=== PATIENT | male | born 1950 | race Caucasian/White ===

== ENCOUNTER → 2022-05-08 | Outpatient (CLI) | payer MEDICARE, SELFPAY ==
--- NOTE | 2022-05-08 14:04 | ECHOD_ITS ---
Reason For Study: CONGENITAL HEART DISEASE Procedure This was a 2D Doppler, Color Flow transthoracic echocardiogram. Exam performed in department. Left Ventricle Normal LV size. Left ventricular systolic function is normal. The estimated ejection fraction is 65 %. Normal diastology for age. No regional wall motion abnormalities noted. Right Ventricle Normal RV size. Normal systolic function. Atria Normal left atrium. Normal right atrium. Mitral Valve Normal mitral valve. Tricuspid Valve Normal tricuspid valve. Mild (1+) tricuspid valve insufficiency. Pulmonary artery systolic pressure is 37 mmHg. Aortic Valve Normal aortic valve. Trisinus/trileaflet aortic valve. Pulmonic Valve Normal pulmonic valve. Great Vessels Normal aortic root. The pulmonary artery is normal size. Normal inferior vena cava. Pericardium/Pleural No pericardial effusion. MMode/2D Measurements & Calculations LVIDd: 5.0 cm IVSd: 0.90 cm Ao root diam: 3.5 cm LVIDs: 3.1 cm LVPWd: 0.98 cm RVDd: 3.4 cm FS: 37.0 % LAV(MOD-bp): 46.9 ml LVAd ap4: 32.2 cm2 SV(MOD-sp4): 72.6 ml LAV(MOD-bp) Indexed: 21.9 ml/m2 LVLd ap4: 8.2 cm LAV(MOD-sp2): 46.0 ml EDV(MOD-sp4): 102.6 ml LAV(MOD-sp4): 44.6 ml EDV(sp4-el): 107.1 ml LVAs ap4: 15.0 cm2 LVLs ap4: 6.3 cm ESV(MOD-sp4): 30.0 ml ESV(sp4-el): 30.3 ml EF(MOD-sp4): 70.8 % EF(sp4-el): 71.7 % SV(sp4-el): 76.8 ml LA A4 area: 18.1 cm2 LA dimension(2D): 4.1 cm RA A4 area: 17.3 cm2 Time Measurements MV dec time: 0.20 sec Doppler Measurements & Calculations MV E max robel: 74.4 cm/sec Lat Peak E' Robel: 13.2 cm/sec Med Peak E' Robel: 8.9 cm/sec MV A max robel: 57.0 cm/sec E/E' lat: 5.6 E/E' med: 8.4 MV E/A: 1.3 Ao V2 max: 145.7 cm/sec LV V1 max: 133.4 cm/sec PA V2 max: 113.6 cm/sec Ao max P.5 mmHg LV V1 max P.1 mmHg TR max robel: 293.0 cm/sec TR max P.3 mmHg ECHO/Echo Complete Interpretation Summary Normal LV size. Left ventricular systolic function is normal. The estimated ejection fraction is 65 %. Pulmonary artery systolic pressure is 37 mmHg. The global longitudinal strain is normal. The global longitudinal strain = -19. 9 % (normal). Ordering Physician: Caroline Calloway/Addy Pardo Performed By: Juanis Edwards RDCS
== END | disposition home or self-care (01) ==
PROVIDERS: Referring Provider Physician Assistant Medical; Visit Provider Physician Assistant Medical
DX: Q21.10 Atrial septal defect, unspecified (principal); I36.1 Nonrheumatic tricuspid (valve) insufficiency
CPT/HCPCS: 93306

== ENCOUNTER → 2022-10-13 | Outpatient (CLI) | payer MEDICARE, SELFPAY ==
--- NOTE | 2022-10-13 13:02 | CT_ITS ---
STUDY: CT CHEST WITHOUT CONTRAST REASON FOR EXAM: Male, 72 years old. CALCIUM SCORE, Hyperlipidemia, hypertension. History of male breast cancer, mastectomy. OVERREAD ONLY RADIATION DOSAGE (If Supplied By Facility): CTDIvol = ( 12.19 ) mGy, DLP = ( 243.79 ) mGycm TECHNIQUE: Transaxial imaging was performed without the administration of intravenous contrast material. Individualized dose optimization techniques were used for this CT. COMPARISON: No relevant priors. FINDINGS: CHEST There is a 5 mm noncalcified nodule in the lateral aspect of the right upper lobe as seen on axial image #11. Dedicated CT scan of the thorax is recommended for further evaluation. There is no demonstrated pleural abnormality. There are calcifications of the coronary arteries. There are small lymph nodes within the mediastinum, which are normal in size and morphology most compatible with reactive lymph hyperplasia. Normal hilar regions. Normal unenhanced pulmonary arteries. There is atherosclerotic calcification of the aortic arch. Normal osseous structures. Small hiatal hernia. CT/Limited Chest CT Cardiac Only IMPRESSION: Coronary artery calcification. Incidental note is made of a 5 mm noncalcified nodule in the peripheral lateral aspect of the right upper lobe. Correlation with a dedicated CT scan of thorax is recommended for further evaluation. Electronically Signed: Miah Nieves MD at 13:54 EDT ,
--- NOTE | 2022-10-17 12:22 | CA.SCORE ---
Calcium Scoring Date of Study:: 10/13/22 Coronary Calcium Scoring: High-resolution Computed Tomographic imaging of the chest was performed on [10/13/2022], with particular attention paid to the coronary arteries. Images from the examination were analyzed for the presence and extent of coronary artery calcification , using coronary calcium quantification software. The patient tolerated the procedure well and there were no complications. The results of the coronary calcification analysis are provided below. Findings Coronary Artery Left Main (LM): 0 Left Anterior Descending (LAD): 1,118 Left Circumflex (LCX): 443 Right Coronary Artery (RCA): 980 Total Agatston Score: 2,541 Percentile Ranking: Greater than 90th percentile Calcium Scoring Interpretation: Different methods to categorize the overall amount of coronary plaque. Overall amount CAC SIS Visual of coronary plaque P1 Mild -100 <2 1-2 vessels with mild amount of plaque P2 Moderate 101-300 3-4 1-2 vessels with moderate amount, 3 vessels with mild amount of plaque P3 Severe 301-999 5-7 3 vessels with moderate amount, 1 vessel with severe amount of plaque P4 Extensive >1000 >8 2-3 vessels with severe amount of plaque Calcium Score: Extensive: 2-3 vessels w/severe amount of plaque Conclusion: Extensive atherosclerotic plaquing noted with significant calcification noted in the left anterior descending artery and right coronary artery territories. Significantly elevated compared to people of the same gender and age.
== END | disposition home or self-care (01) ==
PROVIDERS: Referring Provider Physician Assistant Medical; Visit Provider Physician Assistant Medical
DX: E78.5 Hyperlipidemia, unspecified (principal); I10 Essential (primary) hypertension; K44.9 Diaphragmatic hernia without obstruction or gangrene; I25.10 Atherosclerotic heart disease of native coronary artery without angina pectoris
CPT/HCPCS: 75571; 76380

== ENCOUNTER → 2022-10-23 | Outpatient (CLI) | payer MEDICARE, SELFPAY ==
--- NOTE | 2022-10-23 18:42 | CT_ITS ---
INDICATION: abnormal chest CT (cardiac)- lung nodule. History of breast cancer with mastectomy. EXAMINATION: CT CHEST WITHOUT CONTRAST - CT Chest W/O Contrast Injection TECHNIQUE: Helically acquired images were obtained of the chest with soft tissue and lung algorithm. Coronal and sagittal reformats obtained. A radiation dose optimization technique was used for this scan. IV Contrast dosage and agent: None. COMPARISON: October 13, [address] FINDINGS: LUNGS, PLEURA AND LARGE AIRWAYS: 5 mm lateral right upper lobe nodule axial image 42 correlating with nodule on comparison CT. No additional pulmonary nodules are seen. No pleural effusion or thickening. No pneumothorax. THYROID: No thyroid lesions. HEART AND PERICARDIUM: Heart size is normal. No pericardial effusion. Severe multivessel coronary atherosclerosis. VESSELS: Minimal aortic atherosclerosis without ectasia.. MEDIASTINUM AND JOSÉ: No mediastinal or hilar adenopathy by size criteria. Esophagus is unremarkable. Minimal hiatal hernia. UPPER ABDOMEN: No acute pathology. CHEST WALL/BONES: No suspicious lytic or blastic abnormality. Prior bilateral mastectomy. CT/Chest without Contrast IMPRESSION: Solitary 5 mm nodule in the lateral right upper lobe. In the setting of prior breast malignancy recommend 3 month follow-up CT to assess stability. Minimal hiatal hernia. Electronically Signed: Santo Smith MD at 9:47 EDT ,
== END | disposition home or self-care (01) ==
PROVIDERS: Referring Provider Physician Assistant Medical; Visit Provider Physician Assistant Medical
DX: R93.89 Abnormal findings on diagnostic imaging of other specified body structures (principal); Z85.3 Personal history of malignant neoplasm of breast
CPT/HCPCS: 71250

== ENCOUNTER → 2022-11-03 | Outpatient (CLI) | payer MEDICARE, SELFPAY ==
--- NOTE | 2022-11-01 20:51 | PCM.HP.BLA ---
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 He is a gentleman with a history of chronic Casarez's esophagitis, small patent foramen ovale, hypertension and hyperlipidemia who returns for routine follow-up visit. He does have a hx of right breast cancer with chemo and radiation in [phone]. He is now seeing a sizing end bander for protein in his urine. He complete Coronary Calcium testing on 10/17/2022 that was significantly elevated. Based on such, he will proceed with [facility]. He has stopped his enalapril d/t low BP readings. From a cardiac standpoint, patient is doing well. He does not have any chest discomfort/heaviness/tightness. His exercise tolerance is stable for his age. He does not have any worsening symptoms of shortness of breath. He denies any PND. He does not have any orthopnea. He does not have any symptoms of congestive heart failure. He does sometimes feels palpitations, these are not often. He does not have any lightheadedness or dizziness. He does not have any near-syncope or syncope. He does have chronic lower extremity edema- he does wear his compression stockings. He is in lasix for this. He does not have any symptoms of claudication. Intake Vital Signs: See EMR Intake Visit Reasons: [facility] Community Living Coach Required: No Accompanied by: Self Allergies No Known Allergies Allergy (Verified 04/14/22 09:09) Medications See EMR [facility] Medical History (Updated 04/14/22 @ 09:31 by Caroline MOSELEY, PA) Casarez esophagus Bile reflux gastritis Breast cancer in male Essential (primary) hypertension Hyperlipidemia Obesity Patent foramen ovale Preop cardiovascular exam Surgical History H/O right mastectomy History of total bilateral knee replacement (TKR) Family History Other Breast cancer CAD (coronary artery disease) Social History Smoking Status: Never smoker ROS Const Const: Negative for fatigue, weakness, headache(s), frequent falls, excessive sweating, weight gain or weight loss Eyes Eyes: Negative for blind spots, loss of peripheral vision, transient loss of vision, blurry vision, change in vision or double vision ENT ENT: Negative for headache(s), dizziness, tinnitus, Nosebleed/epistaxis or balance problems Cardio Chest Pain: No Palpitations: No Edema: None Muscle aches with walking: None Resp Respiratory: Negative for SOB with activity, SOB at rest, SOB orthopnea\SOB lying down or Cough GI GI: Negative nausea, vomiting, heartburn, bloating, vomiting blood/hematemesis, bright, red blood in stools or black,tarry stools : Negative for hematuria Musc Musc: Negative for muscle aches/ myalgia, muscle weakness, joint pain or balance problems Skin Skin: Negative rash or wounds Neuro Neuro: Negative for dizziness, lightheadedness, near syncope, syncope, orthostatic symptoms, frequent falls, headache(s), weakness, confusion, memory loss, restless legs, blurry vision or double vision Shun Hematologic/Lymphatic: Negative for easy bleeding or easy bruising Endo Endo: Negative for fatigue, cold intolerance, heat intolerance or excessive sweating Psych Psych: Negative for anxiety or depression Allergy Allergy/Immunology: Negative for rash Cardiology Exam Const Appearance: cooperative, healthy appearing, comfortable, no acute distress and well developed Orientation: alert, awake and oriented x3 Head Head: normal to inspection Ears: hearing grossly normal bilaterally Nose: external nose normal Face and Sinus: face symmetric Mouth: oral mucosae normal, lip normal and moist mucous membranes Eyes General: appearance normal, both eyes and all related structures Eyelids: eyelids normal Conjunctivae: conjunctivae normal Pupils: PERRL EOM: EOM intact bilaterally Neck Neck: normal visual inspection and trachea midline; Negative no JVD Carotids: Negative bruit Chest Chest inspection: normal inspection of the chest Auscultation: Bilateral: Clear to Auscultation Cardio Palpation: normal PMI Rate: regular rate Rhythm: regular rhythm Heart sounds: S1 normal and S2 normal; Negative rub, gallop or murmur GI GI: soft, no hepatosplenomegaly and bowel sounds present Neuro General: patient alert, patient awake, patient oriented x3 and CN's II-XI intact bilaterally Extremities Pulses: Normal: Right Posterior Tibial Pulse, Left Posterior Tibial Pulse, Right Radial Pulse and Left Radial Pulse Lower Extremity Edema: None: Bilateral Psych Psychological: normal affect Supplemental Info Stress test 2017: 1. Exercise myocardial perfusion stress test with no evidence of ischemia at a high workload. 2. Excellent functional work capacity. 3. No clinical angina noted. Echocardiogram 05/08/2022: Interpretation Summary Normal LV size. Left ventricular systolic function is normal. The estimated ejection fraction is 65 %. Pulmonary artery systolic pressure is 37 mmHg. The global longitudinal strain is normal. The global longitudinal strain = -19.9 % (normal). Coronary Angiography CT from 10/17/2022: Findings Coronary Artery Left Main (LM): 0 Left Anterior Descending (LAD): 1,118 Left Circumflex (LCX): 443 Right Coronary Artery (RCA): 980 Total Agatston Score: 2,541 Percentile Ranking: Greater than 90th percentile Calcium Score: Extensive: 2-3 vessels w/severe amount of plaque Conclusion: Extensive atherosclerotic plaquing noted with significant calcification noted in the left anterior descending artery and right coronary artery territories. Significantly elevated compared to people of the same gender and age. Assessment and Plan Assessment and Plan (1) Essential (primary) hypertension: Status: Chronic Plan: Patient had stopped his enalapril due to hypotension. He will continue with his current dose of diuretics. His PCP is managing his kidney function. He has been diuretics for chronic lower extremity edema following his vasectomy. (2) Patent foramen ovale: Status: Chronic Plan: Stable, will repeat echocardiogram to evaluate stability. (3) Hyperlipidemia: Status: Chronic Plan: managed by PCP, will continue with current dose of statin (4) Abnormal Test Status: Chronic Plan: On account of elevated calcium score, he will proceed with C. Depending on results, further recommendation will be made.
[2022-11-03 11:52] LABS: Absolute Lymphocyte Count 2.18 X10^3/uL (0.83-4.51); Absolute Neutrophil Count 3.9 X10^3/uL (2.0-7.7); Basophil# 0.03 X10^3/uL; Basophil% 0.4 % (0-1); Eosinophil# 0.12 X10^3/uL; Eosinophils% 1.8 % (0-5); Hematocrit 41.6 % (40-54); Hemoglobin 14.1 g/dL (13.0-16.5); Lymphocyte # 2.18 X10^3/ul (0.83-4.51); Lymphocyte % 32.2 % (19-41); Mean Corp Hgb Conc 33.9 g/dL (32-36); Mean Corpuscular Hgb 29.7 pg (27.0-32.0); Mean Corpuscular Volume 87.8 fL (80-94); Mean Platelet Vol. 9.2 fl (6.2-12.0); Monocyte# 0.57 X10^3/uL; Monocyte% 8.4 % (0-10); NRBC Flagged by Analyzer 0 % (0-5); Neutrophil # 3.86 X10^3/uL (2.7-7.7); Neutrophil % 57.1 % (47-70); Platelet Count 284 K/mm3 (150-450); RBC Distribution Width CV 13.6 % (11.6-14.6); RBC Distribution Width SD 43.9 fl (35.1-43.9); Red Blood Count 4.74 M/mm3 (4.6-6.2); White Blood Count 6.8 K/mm3 (4.4-11.0)
[2022-11-03 12:03] LABS: Partial Thromboplast Time 27.5 Seconds (24.1-36.2)
[2022-11-03 12:23] LABS: Anion Gap 4 (5-15); BUN 10 mg/dL (7-18); BUN/Creat Ratio 9.9 RATIO (10-20); Chloride 106 mmol/L (98-107); Creatinine, Serum 1.01 mg/dL (0.70-1.30); EST Glomerular Filtration Rate 77 mL/min (>60); Est Glom Filt Rate - Afr Amer 94 mL/min (>60); Glucose 98 mg/dL (74-106); Potassium 3.9 mmol/L (3.5-5.1); Sodium Level 138 mmol/L (136-145)
[2022-11-06 08:06] VITALS: BMI 35.4
== END | disposition home or self-care (01) ==
LOC: PAT 12-01 08:11
PROVIDERS: Physician Assistant Medical; Referring Provider Internal Medicine Cardiovascular Disease; Visit Provider Internal Medicine Cardiovascular Disease
DX: Z01.818 Encounter for other preprocedural examination (principal); R93.1 Abnormal findings on diagnostic imaging of heart and coronary circulation; R93.89 Abnormal findings on diagnostic imaging of other specified body structures; I10 Essential (primary) hypertension; E78.5 Hyperlipidemia, unspecified
CPT/HCPCS: 36415; 80048; 85025; 85610; 85730

== ENCOUNTER → 2023-02-15 | Outpatient (CLI) | payer MEDICARE, SELFPAY ==
--- OUTSIDE RECORDS SUMMARY | 2023-02-15 06:21 | XMS RPT_ITS | CCD ---
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 Name Role Phone Winifred Kennedy Unavailable Winifred Kennedy Unavailable Winifred Kennedy Unavailable Kasandra HERRERA, Oriana Alonzo Unavailable Unavailable Danial Berkowitz Primary Care Provider Danial Berkowitz Primary Care Provider Danial Berkowitz Primary Care Provider Danial Berkowitz Primary Care Provider Danial Berkowitz MD Primary Care Provider Danial Berkowitz MD Primary Care Provider Danial Berkowitz MD Primary Care Provider Danial Berkowitz MD Primary Care Provide r Danial Berkowitz MD Primary Care Provide r Danial Berkowitz MD Primary Care Provide r Danial Berkowitz Unavailable Danial Berkowitz MD Primary Care Provider [phone] Danial Berkowitz MD Primary Care Provider Danial Berkowitz MD Primary Care Provide r Danial Berkowitz Primary Care Unavailable PROVIDER, UNKNOWN Referring Unavailable Danial Berkowitz Attending Unavailable PROVIDER, UNKNOWN Referring Unavailable Danial Berkowitz Primary Care Unavailable Roselyn, Danial Attending Unavailable PROVIDER, UNKNOWN Referring Unavailable TestonBessis Attending Unavailable Roselyn, Danial Primary Care Unavailable PROVIDER, UNKNOWN Referring Unavailable Roselyn, Danial Attending Unavailable Roselyn, Danial Primary Care Unavailable PROVIDER, UNKNOWN Referring Unavailable Roselyn, Danial Attending Unavailable Roselyn, Danial Primary Care Unavailable PROVIDER, UNKNOWN Referring Unavailable Roselyn, Danial Attending Unavailable Roselyn, Danial Primary Care Unavailable Roselyn KING, Danial Primary Care Provider Roselyn, Danial Attending Unavailable Roselyn, Danial Referring Unavailable Roselyn, Danial Primary Care Unavailable Roselyn, Danial Attending Unavailable Roselyn, Danial Referring Unavailable Roselyn, Danial Primary Care Unavailable Roselyn, Danial Attending Unavailable Roselyn, Danial Referring Unavailable Roselyn, Danial Primary Care Unavailable Roselyn , Danial Primary Care Provider [phone] Danial Berkowitz MD Primary Care Provide r Danial Berkowitz MD Primary Care Provider TestonBessis Admitting Unavailable TestonBessis Attending Unavailable Roselyn, Dr. Danial Casey Referring Patricia vailable Roselyn, Dr. Danial Casey Primary Care Patricia vailable DENIS OSUNA Attending Unavailable ROSELYN, DANIAL Primary Care Unavailable MAURO WORKMAN Attending Unavailable ROSELYN, DANIAL Primary Care Unavailable JAMARCUS IRVING Attending Unavailable ROSELYN, DANIAL Primary Care Unavailable ROSELYN, DANIAL Attending Unavailable ROSELYN, DANIAL Primary Care Unavailable Medications Current Medications Medication Drug Class(es) Dates Sig (Normalized) Sig (Original) acetaminophen 500 mg oral tablet (2 sources) Start: 12-27-2020 End: 05-13-2021 take 2 tablets by mouth every eight hours as needed acetaminophen (TYLENOL EXTRA STRENGTH) 500 mg tablet Take 2 tablets by mouth every 8 hours as needed for pain. 60 tablet 0 12/27/2020 05/13/2021 Discontinued Completed/Discontinued Medications Medication Drug Class(es) Dates Sig (Normalized) Sig (Original) amoxicillin 500 mg oral capsule (10 sources) Penicillin-class Antibacterial Start: 06-09-2020 End: 11-30-2022 take 4 capsules by mouth every hour amoxicillin (AMOXIL) 500 mg capsule Take 4 capsules by mouth 1 hour prior to dental cleaning 4 capsule 3 11/30/2022 Active Problems Active Problems Problem Classification Problem Date Documented Date Episodic/Chronic Abdominal hernia (1 source) Hiatal hernia; Translations: [Diaphragmatic hernia without obstruction or gangrene] Episodic Abdominal pain (1 source) Upper abdominal pain; Translations: [Upper abdominal pain, unspecified] Episodic Anxiety disorders (19 sources) Anxiety; Translations: [Other specified anxiety disorders] Onset: 10-10-2022 10-10-2022 Chronic Attention-deficit conduct and disruptive behavior disorders (20 sources) Attention deficit hyperactivity disorder; Translations: [Attention-deficit hyperactivity disorder, unspecified type] Onset: 08-06-2014 08-06-2014 Chronic Cancer of breast (13 sources) Malignant neoplasm of male breast; Translations: [Malignant neoplasm of unspecified site of unspecified male breast] Onset: 11-16-2014 01-21-2017 Chronic Cardiac and circulatory congenital anomalies (20 sources) Patent foramen ovale; Translations: [Atrial septal defect] Onset: 06-14-2016 06-14-2016 Chronic Deficiency and other anemia (6 sources) Anemia; Translations: [Anemia, unspecified] 12-20-2020 Episodic Diabetes mellitus without complication (20 sources) Prediabetes; Translations: [Prediabetes] Onset: 12-20-2020 12-20-2020 Episodic Disorders of lipid metabolism (20 sources) Hyperlipidemia; Translations: [Hyperlipidemia, unspecified] Onset: 05-12-2016 05-12-2016 Chronic Diverticulosis and diverticulitis (1 source) Diverticular disease; Translations: [Diverticulosis of intestine, part unspecified, without perforation or abscess without bleeding] Chronic Esophageal disorders (20 sources) Casarez's esophagus; Translations: [Casarez's esophagus without dysplasia] Onset: 01-05-2016 01-05-2016 Chronic Essential hypertension (20 sources) Hypertensive disorder; Translations: [Essential hypertension] Onset: 05-12-2016 05-12-2016 Chronic Gastritis and duodenitis (20 sources) Chronic superficial gastritis; Translations: [Chronic superficial gastritis without bleeding] Onset: 01-05-2016 05-03-2020 Chronic Genitourinary symptoms and ill-defined conditions (4 sources) Isolated proteinuria; Translations: [Isolated proteinuria] Onset: 11-07-2021 Episodic Heart valve disorders (6 sources) Heart murmur; Translations: [Cardiac murmur, unspecified] 12-20-2020 Episodic Hyperplasia of prostate (20 sources) Benign prostatic hyperplasia; Translations: [Benign prostatic hyperplasia without lower urinary tract symptoms] Onset: 12-21-2021 12-20-2020 Chronic Hypertension with complications and secondary hypertension (2 sources) Hypertensive heart disease without heart failure; Translations: [Hypertensive heart disease without heart failure] Onset: 11-07-2021 Chronic Nausea and vomiting (3 sources) Nausea; Translations: [Nausea] Episodic Osteoarthritis (6 sources) Osteoarthritis of left knee joint; Translations: [Unilateral primary osteoarthritis, left knee] Onset: 12-20-2020 12-20-2020 Chronic Other connective tissue disease (20 sources) History of total knee arthroplasty; Translations: [Presence of left artificial knee joint] Onset: 03-15-2020 Chronic Other connective tissue disease (2 sources) Muscle spasm of cervical muscle of neck; Translations: [Other muscle spasm] Episodic Other lower respiratory disease (5 sources) Dyspnea; Translations: [Dyspnea, unspecified] Onset: 05-12-2016 05-12-2016 Episodic Other lower respiratory disease (4 sources) Dyspnea, unspecified; Translations: [Dyspnea, unspecified] Onset: 09-07-2021 Episodic Other non-traumatic joint disorders (1 source) Pain in left knee; Translations: [Left knee pain, unspecified chronicity] Other nutritional; endocrine; and metabolic disorders (4 sources) Obesity; Translations: [Other obesity due to excess calories] Onset: 03-03-2020 03-03-2020 Chronic Other nutritional; endocrine; and metabolic disorders (2 sources) Obesity caused by energy imbalance; Translations: [Other obesity due to excess calories] Onset: 03-03-2020 03-03-2020 Chronic Residual codes; unclassified (2 sources) Hypersomnia, unspecified; Translations: [Hypersomnia, unspecified] Onset: 09-23-2021 Chronic Residual codes; unclassified (8 sources) Bilateral lower limb edema; Translations: [Localized edema] 12-20-2020 Episodic Past or Other Problems Problem Classification Problem Date Documented Da te Episodic/Chronic Cancer of breast (20 sources) History of malignant neoplasm of breast; Translations: [Personal history of malignant neoplasm of breast] Onset: 11-16-2014 05-03-2020 Episodic Deficiency and other anemia (7 sources) Normocytic normochromic anemia; Translations: [Anemia, unspecified] Onset: 10-15-2020 10-15-2020 Episodic Deficiency and other anemia (19 sources) Macrocytic anemia; Translations: [Nutritional anemia, unspecified] Onset: 10-15-2020 05-26-2022 Episodic Gastritis and duodenitis (20 sources) Chronic superficial gastritis; Translations: [Bile-induced gastritis] Onset: 01-05-2016 01-05-2016 Episodic Nonspecific chest pain (4 sources) Chest pain; Translations: [Chest pain, unspecified] Onset: 05-12-2016 05-12-2016 Episodic Other aftercare (4 sources) 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; Translations: [Other [facility] (current) drug therapy] Onset: 05-12-2016 05-12-2016 Episodic Other aftercare (1 source) Encounter for follow-up examination after completed treatment for malignant neoplasm; Translations: [Encntr for follow-up exam after trtmt for malignant neoplasm] Onset: 04-10-2022 Episodic Other circulatory disease (19 sources) Capillary leak syndrome; Translations: [Other diseases of capillaries] Onset: 12-21-2021 05-26-2022 Episodic Other connective tissue disease (2 sources) Other muscle spasm; Translations: [Other muscle spasm] Onset: 05-26-2022 Episodic Residual codes; unclassified (3 sources) Localized edema; Translations: [Localized edema] Onset: 11-07-2021 Episodic Residual codes; unclassified (2 sources) Localized edema; Translations: [Localized edema] Onset: 11-07-2021 Episodic Results Test Name Value Interpretation Reference Range Facil ity Vital Signs Date Time Vital Sign Value Performing Clinician Faci lity 02-01-2023 13:12050 Body height 172.7 cm Jamarcus Irving PA-C Work Phone: [facility] 02-01-2023 13:12-0500 Body mass index (BMI) [Ratio] 35.88 kg/m2 Jamarcus Irving PA-C Work Phone: [facility] 02-01-2023 13:12050 Body temperature 97.11 [degF] Jamarcus Irving PA-C Work Phone: [facility] 02-01-2023 13:12-0500 Body weight 107.05 kg Jamarcus Bonilla PA-C Work Phone: [facility] [employer] 02-01-2023 13:12-0500 Diastolic blood pressure 70 mm[Hg] Jaredskasandra Bonilla PA-C Work Phone: [facility] [employer] 02-01-2023 13:12-0500 Heart rate 77 /min Jamarcus Bonilla PA-C Work Phone: [facility] [employer] 02-01-2023 13:12-0500 Systolic blood pressure 129 mm[Hg] Jaredskasandra Bonilla PA-C Work Phone: [facility] [employer] 11-13-2022 09:03-0400 Body height 172.7 cm Norm Villafuerte MD Work Phone: [facility] [employer] 11-13-2022 09:03-0400 Body mass index (BMI) [Ratio] 34.1 kg/m2 Norm Villafuerte MD Work Phone: [facility] [employer] 11-13-2022 09:03-0400 Body temperature 97.5 [degF] Norm Villafuerte MD Work Phone: [facility] [employer] 11-13-2022 09:03-0400 Body weight 101.74 kg Norm Villafuerte MD Work Phone: [facility] [employer] 11-13-2022 09:03-0400 Diastolic blood pressure 67 mm[Hg] Norm Villafuerte MD Work Phone: [facility] [employer] 11-13-2022 09:03-0400 Heart rate 72 /min Norm Villafuerte MD Work Phone: [facility] [employer] 11-13-2022 09:03-0400 Systolic blood pressure 125 mm[Hg] Norm Villafuerte MD Work Phone: [facility] [employer] 10-10-2022 14:49-0400 Body height 172.7 cm Norm Villafuerte MD Work Phone: [facility] [employer] 10-10-2022 14:49-0400 Body mass index (BMI) [Ratio] 34.23 kg/m2 Norm Villafuerte MD Work Phone: [facility] [employer] 10-10-2022 14:49-0400 Body temperature 98.29 [degF] Norm Villafuerte MD Work Phone: [facility] [employer] 10-10-2022 14:49-0400 Body weight 102.11 kg Norm Villafuerte MD Work Phone: [facility] [employer] 10-10-2022 14:49-0400 Diastolic blood pressure 72 mm[Hg] Norm Villafuerte MD Work Phone: [facility] [employer] 10-10-2022 14:49-0400 Heart rate 74 /min Norm Villafuerte MD Work Phone: [facility] [employer] 10-10-2022 14:49-0400 Systolic blood pressure 126 mm[Hg] Norm Villafuerte MD Work Phone: [facility] [employer] 05-26-2022 10:37-0400 Body height 172.7 cm Danial Berkowitz MD Work Phone: [facility] [employer] 05-26-2022 10:37-0400 Body mass index (BMI) [Ratio] 35.14 kg/m2 Danial Berkowitz MD Work Phone: [facility] [employer] 05-26-2022 10:37-0400 Body temperature 98.01 [degF] Danial Berkowitz MD Work Phone: [facility] [employer] 05-26-2022 10:37-0400 Body weight 104.83 kg Danial Berkowitz MD Work Phone: [facility] [employer] 05-26-2022 10:37-0400 Diastolic blood pressure 75 mm[Hg] Danial Berkowitz MD Work Phone: [facility] [employer] 05-26-2022 10:37-0400 Heart rate 68 /min Danial Berkowitz MD Work Phone: [facility] [employer] 05-26-2022 10:37-0400 Systolic blood pressure 129 mm[Hg] Danial Berkowitz MD Work Phone: [facility] [employer] 05-13-2021 08:32-0400 Body height 172.7 cm Yvon Warner MD Work Phone: [facility] 05-13-2021 08:32-0400 Body weight 105.23 kg Yvon Warner MD Work Phone: [facility] 05-13-2021 08:32-0400 Diastolic blood pressure 68 mm[Hg] Yvon Warner MD Work Phone: [facility] 05-13-2021 08:32-0400 Heart rate 79 /min Yvon Warner MD Work Phone: [facility] 05-13-2021 08:32-0400 Systolic blood pressure 122 mm[Hg] Yvon Warner MD Work Phone: [facility] 07-18-2016 11:40-0400 BMI (Body Mass Index) 35.44 kg/m2 Winifred Kennedy [facility] Work Phone: 07-18-2016 11:40-0400 BP Diastolic 72 mm[Hg] Winifred Kennedy [facility] Work Phone: 07-18-2016 11:40-0400 BP Systolic 116 mm[Hg] Winifred Kennedy [facility] Work Phone: 07-18-2016 11:40-0400 Height 172.72 cm Winifred Kennedy [facility] Work Phone: 07-18-2016 11:40-0400 Pulse (Heart Rate) 72 /min Winifredamirah Kennedy [facility] Work Phone: 07-18-2016 11:40-0400 Weight 105.73 kg Winifred Kennedy [facility] Work Phone: 05-17-2016 13:49-0400 BMI (Body Mass Index) 34.97 kg/m2 Oriana Slaughter RN [facility] Work Phone: 05-17-2016 13:49-0400 BP Diastolic 78 mm[Hg] Oriana Kasandra RN [facility] Work Phone: 05-17-2016 13:49-0400 BP Systolic 130 mm[Hg] Orianalucrecia Slaughter RN [facility] Work Phone: 05-17-2016 13:49-0400 Height 172.72 cm Orianalucrecia Slaughter RN [facility] Work Phone: 05-17-2016 13:49-0400 Pulse (Heart Rate) 88 /min Oriana Slaughter RN [facility] Work Phone: 05-17-2016 13:49-0400 Respiratory Rate 20 /min Oriana Kasandra RN [facility] Work Phone: 05-17-2016 13:49-0400 Weight 104.33 kg Oriana Slaughter RN [facility] Work Phone: Encounters Encounter Date Encounter Type Care Provider Facility Start: 02-01-2023 End: 02-01-2023 ambulatory [facility] Start: 02-01-2023 End: 02-01-2023 Encounter for general adult medical examination without abnormal findings [facility] Start: 02-01-2023 End: 02-01-2023 Patient encounter procedure Jamarcus Irving PA-C Work Phone: [facility] Procedures Date Procedure Procedure Detail Performing Clinician Start: 02-01-2023 Adult depression scr eening assessment Jamarcus MOSELEY-C Work Phone: Start: 10-17-2022 Adult depression scr eening assessment Norm Villafuerte MD Work Phone: Start: 12-28-2021 Lipid 1996 panel - S jarrett or Plasma Danial Berkowitz MD Work Phone: Start: 12-21-2021 Adult depression scr eening assessment Danial Berkowitz MD Work Phone: Start: 12-08-2021 Screening mammograph y bi 2-view breast inc cad Dara Loredo MD Work Phone: Start: 09-28-2021 Us retroperitoneal r eal time w/image limited Danial Berkowitz MD Work Phone: Start: 09-12-2021 Echo tthrc r-t 2d w/ wom-mode compl spec&colr d Danial Berkowitz MD Work Phone: Start: 08-23-2021 Ecg routine ecg w/le ast 12 lds w/i&r Danial Berkowitz MD Work Phone: Start: 06-23-2021 Medical genetics cou nseling each 30 minutes Danial Berkowitz Work Phone: Start: 05-19-2021 Medical genetics cou nseling each 30 minutes Danial Berkowitz Work Phone: Start: 12-20-2020 Antibody screen Plan of Treatment Date Care Activity Detail Author Start: 12-28-2026 Lipid panel Lipid Panel [facility] Start: 11-10-2025 Colonoscopy COLONOSCOPY [facility] Start: 11-10-2025 COLORECTAL CANCER SCREENING COLORECTAL CANCER SCREENING [facility] Start: 11-10-2025 Screening for malignant neoplasm of colon [facility] Start: 07-08-2025 DTaP/Tdap/Td vaccine (2 - Td or Tdap) DTaP/Tdap/Td vaccine (2 - Td or Tdap) [facility] Start: 07-08-2025 DTaP/Tdap/Td vaccine (2 - Td) DTaP/Tdap/Td vaccine (2 - Td) [place], [place] Start: 07-08-2025 DTaP/Tdap/Td Vaccines (2 - Td or Tdap) DTaP/Tdap/Td Vaccines (2 - Td or Tdap) [facility] Start: 07-08-2025 Urine microalbumin profile DTaP,Tdap,Td Vaccine (2 - Td or Tdap) [facility] Start: 09-23-2024 Diabetes mellitus screening Diabetes Screening [facility] Start: 08-12-2024 Screening for malignant neoplasm of colon Colon cancer screen colonoscopy [facility] Work Phone: Start: 03-03-2024 Medicare Advantage Annual Wellness Visit (AWV) Medicare Advantage Annual Wellness Visit (AWV) [facility] Start: 02-02-2024 Depression Screening Depression Screening [facility] Start: 12-29-2023 DIABETES SCREEN DIABETES SCREEN [facility] Start: 12-29-2023 Diabetes Screening Diabetes Screening [facility] Start: 10-18-2023 Depression Screening Depression Screening [facility] Start: 05-28-2023 Diabetes mellitus screening Diabetes Screening [facility] Start: 03-26-2023 End: 03-26-2023 Patient encounter procedure 03/26/2023 8:00 AM EST Appointment [facility] [address] [place] [id number] Danial Berkowitz MD [address] [place] [address] [facility] Start: 03-02-2023 End: 03-02-2023 Patient encounter procedure 03/02/2023 8:30 AM EST Office Visit [facility] [address] [place] [phone] Danial Berkowitz MD [address] [place] [address] [facility] Start: 02-02-2023 End: 02-02-2023 Patient encounter procedure 02/02/2023 8:30 AM EST Office Visit [facility] [address] [facility] [place] [phone] Danial Berkowitz MD [address] [place] [address] [facility] Start: 02-01-2023 End: 02-01-2023 Patient encounter procedure 02/01/2023 1:00 PM EST Office Visit [facility] [address] [place] [address] Jamarcus Irving PA-C [address] [facility] [address] [place] [address] [facility] Start: 12-21-2022 Depression Screening Depression Screening [facility] Start: 11-13-2022 End: 11-13-2022 Patient encounter procedure 11/13/2022 9:00 AM EDT Office Visit [facility] [address] [place] [phone] Danial Berkowitz MD [address] [place] [address] [facility] Start: 10-13-2022 Covid-19 Vaccine ( season) Covid-19 Vaccine ( season) [facility] Start: 10-13-2022 COVID-19 Vaccine () COVID-19 Vaccine () [facility] Start: 10-13-2022 Influenza vaccination [facility] Start: 10-10-2022 End: 10-10-2022 Patient encounter procedure 10/10/2022 2:30 PM EDT Office Visit [facility] [address] [place] [phone] Norm Villafuerte MD [address] [place] [address] [facility] Start: 09-23-2022 Depression Screen Depression Screen [facility] Start: 09-23-2022 Hemoglobin A1c measurement A1C test (Diabetic or Prediabetic) [facility] Start: 08-23-2022 Prostate specific antigen measurement Prostate Specific Antigen (PSA) Screening or Monitoring [facility] Start: 06-15-2022 Lipid screen Lipid screen [facility] [place], [place] Start: 05-13-2022 BP CONTROLLED (<130/80) BP CONTROLLED (<130/80) [facility] Start: 03-04-2022 COVID-19 Vaccine (5 - Additional dose for David series) COVID-19 Vaccine (5 - Additional dose for David series) [facility] Start: 02-12-2022 ADVANCE DIRECTIVE DISCUSSION ADVANCE DIRECTIVE DISCUSSION [facility] Start: 02-12-2022 DEPRESSION ASSESSMENT DEPRESSION ASSESSMENT [facility] Start: 12-08-2021 End: 12-08-2021 Patient encounter procedure 12/08/2021 Appointment [facility]iology [facility] Start: 11-07-2021 End: 11-07-2021 Patient encounter procedure 11/07/2021 Office Visit Family Medicine Danial Berkowitz MD [address] [place] [address] [facility] Start: 10-13-2021 Influenza vaccination [facility] Start: 09-28-2021 End: 09-28-2021 Patient encounter procedure 09/28/2021 Appointment Radiology [facility]ound Start: 09-12-2021 End: 09-12-2021 Patient encounter procedure 09/12/2021 Appointment Echocardiography Danial Berkowitz MD [address] [place] [address] [facility] [address] Start: 07-31-2021 Annual Wellness Visit (AWV) Annual Wellness Visit (AWV) [facility] Start: 07-28-2021 Depression Screen Depression Screen [facility] Start: 05-27-2021 Hemoglobin A1c measurement A1C test (Diabetic or Prediabetic) [facility] Start: 05-03-2021 Creatinine measurement Creatinine monitoring [facility] Work Phone: Start: 05-03-2021 Lipid panel [facility] Start: 05-03-2021 Potassium monitoring Potassium monitoring [facility] Work Phone: Start: 04-09-2021 COVID-19 VACCINE (3 - Booster for David series) COVID-19 VACCINE (3 - Booster for David series) [facility] Start: 02-12-2021 ADVANCE DIRECTIVE DISCUSSION ADVANCE DIRECTIVE DISCUSSION [facility] Start: 02-01-2021 COVID-19 VACCINE (3 - Booster for David series) COVID-19 VACCINE (3 - Booster for David series) [facility] Start: 10-15-2020 End: 10-15-2020 Patient encounter procedure 10/15/2020 Office Visit Family Medicine Danial Berkowitz MD [address] [place] [address] [phone] [facility] Start: 10-13-2020 Influenza vaccination Flu vaccine (#1) [facility] Work Phone: Start: 08-31-2020 End: 08-31-2020 Patient encounter procedure 08/31/2020 Office Visit Family Medicine Shilo Laughlin MD [address] [place] [address] [phone] [facility] Start: 07-30-2020 End: 07-30-2020 Patient encounter procedure 07/30/2020 Office Visit Family Medicine Danial Berkowitz MD [address] [address] [phone] [facility] Start: 07-02-2020 COVID-19 Vaccine (2 - Booster for David series) COVID-19 Vaccine (2 - Booster for David series) [facility] Start: 05-28-2020 End: 05-28-2020 Office Visit 05/28/2020 Office Visit Family Medicine Danial Berkowitz MD [address] [address] [phone] [facility] Start: 11-30-2019 Creatinine measurement Creatinine monitoring [facility] [place] Start: 11-30-2019 Creatinine monitoring Creatinine monitoring [facility] [place] Start: 11-30-2019 Lipid panel Lipid screen [facility] [place] Start: 11-30-2019 Lipid screen Lipid screen [facility] [place] Start: 11-30-2019 Potassium monitoring Potassium monitoring [facility] [place] Start: 10-14-2019 Influenza vaccination [facility] Start: 02-05-2019 Shingles Vaccine (2 of 2) Shingles Vaccine (2 of 2) [facility] [place] Start: 12-30-2018 End: 12-30-2018 Office Visit 12/30/2018 Office Visit Family Medicine Danial Berkowitz MD [address] [place] [address] [phone] [facility] Start: 11-18-2018 End: 11-18-2018 Office Visit 11/18/2018 Office Visit Family Medicine Danial Berkowitz MD [address] [place] [address] [phone] [facility] Start: 10-13-2018 Influenza vaccination Flu vaccine (#1) [place], [place] Start: 08-04-2018 Annual Wellness Visit (AWV) Annual Wellness Visit (AWV) [place] Start: 06-15-2018 Creatinine monitoring Creatinine monitoring [place] Start: 06-15-2018 Lipid screen Lipid screen [place] Start: 06-15-2018 Potassium monitoring Potassium monitoring [place] Start: 01-22-2018 Pneumococcal 65+ years Vaccine (2 of 2 - PPSV23) Pneumococcal 65+ years Vaccine (2 of 2 - PPSV23) [place] Start: 07-24-2017 End: 07-24-2017 Appointment [facility] Work Phone: Start: 10-02-2016 ADVANCE DIRECTIVE DISCUSSION ADVANCE DIRECTIVE DISCUSSION [facility] Start: 10-02-2016 PNEUMOVAX AGE 65 AND OVER WITH 5YR LOOKBACK (#1) PNEUMOVAX AGE 65 AND OVER WITH 5YR LOOKBACK (#1) [facility] Start: 07-18-2016 End: 07-18-2016 Appointment Appointment [facility] Work Phone: Start: 07-18-2016 End: 07-18-2016 Appointment Appointment [facility] Work Phone: Start: 07-18-2016 End: 07-18-2016 DRY DRUG WORKER DRY DRUG WORKER [facility] Work Phone: Start: 07-18-2016 End: 07-18-2016 Follow Up Appt 1 year Follow Up Appt 1 year [facility] Work Phone: Start: 05-17-2016 End: 07-18-2016 DRY DRUG WORKER DRY DRUG WORKER [facility] Work Phone: Start: 05-17-2016 End: 06-14-2016 Echocardiography Echocardiogram (complete) [email or web address] Work Phone: Start: 05-17-2016 End: 06-14-2016 Electrocardiogram, complete EKG (In office) [facility] Work Phone: Start: 05-17-2016 End: 07-18-2016 Follow Up Appt 2 months Follow Up Appt 2 months [email or web address] Work Phone: Start: 05-17-2016 End: 06-14-2016 Nuclear stress test -exercise Nuclear stress test -exercise [email or web address] Work Phone: Start: 2011 RSV Immunization aged 60 or older (1 - 1-dose 60+ series) RSV Immunization aged 60 or older (1 - 1-dose 60+ series) [facility] Start: 2011 RSV Vaccine (1 - 1-dose 60+ series) RSV Vaccine (1 - 1-dose 60+ series) [facility] Start: 10-02-2006 PROSTATE CANCER SCREENING DISCUSSION PROSTATE CANCER SCREENING DISCUSSION [facility] Start: 10-02-2001 Colon cancer screen colonoscopy Colon cancer screen colonoscopy [place] Start: 10-02-2001 Screening for malignant neoplasm of colon Colon cancer screen colonoscopy [place] Start: 10-02-2001 Shingles Vaccine (1 of 2) Shingles Vaccine (1 of 2) [place] Start: 10-02-2001 SHINGRIX VACCINE (1 of 2) SHINGRIX VACCINE (1 of 2) [facility] Start: 10-02-2001 Tuberculosis screening COLORECTAL CANCER SCREENING,SEE MODIFIER [facility] Start: 10-02-1996 COLOGUARD (FIT-DNA) COLOGUARD (FIT-DNA) [facility] Start: 10-02-[address] COLONOGRAPHY [facility] Start: 10-02-1996 DIABETES SCREEN DIABETES SCREEN [facility] Start: 10-02-1996 FECAL OCCULT BLOOD FECAL OCCULT BLOOD [facility] Start: 10-02-1996 Screening for malignant neoplasm of colon [facility] Start: 10-02-1996 SIGMOIDOSCOPY SIGMOIDOSCOPY [facility] Start: 10-02-1986 Lipid 1996 panel - Serum or Plasma Lipid Screening [facility] Start: 10-02-1986 LIPID SCREEN LIPID SCREEN [facility] Start: 10-02-1970 Urine microalbumin profile DTAP,TDAP,TD (1 - Tdap) [facility] Start: 10-02-1969 ANNUAL PCP TEAM CHRONIC DISEASE VISIT ANNUAL PCP TEAM CHRONIC DISEASE VISIT [facility] Start: 10-02-1969 BP CONTROLLED (<130/80) BP CONTROLLED (<130/80) [facility] Start: 10-02-1969 HEPATITIS C SCREENING HEPATITIS C SCREENING [facility] Start: 1967 COVID-19 Vaccine (1) COVID-19 Vaccine (1) [facility] Work Phone: Start: 1963 Adult depression screening assessment DEPRESSION SCREENING [facility] Start: 1950 Hepatitis B Vaccines (1 of 3 - 3-dose series) Hepatitis B Vaccines (1 of 3 - 3-dose series) [facility] Start: 1950 Hepatitis C screen Hepatitis C screen [employer] Start: 1950 Medicare Advantage Annual Wellness Visit (AWV) Medicare Advantage Annual Wellness Visit (AWV) [facility] Start: 1950 Screening for malignant neoplasm of colon [facility] EKG 12 Lead EKG 12 Lead ECG Routine 11/29/2018 11:06 AM EDT [employer] [facility] EKG 12 Lead EKG 12 Lead ECG Routine 08/23/2021 8:29 AM EDT [facility] Work Phone: End: 11-03-2019 ARMANI SOFYA DIGITAL SCREEN UNI LEFT ARMANI SOFYA DIGITAL SCREEN UNI LEFT Imaging Routine Once for 1 Occurrences starting 11/03/2019 until 11/03/2019 [employer] Immunizations Immunization Date Immunization Notes Care Provider Fa cili 12-02-2021 Influenza, FLUZONE ( age 65 y+), High Dose, 0.7mL Dara Loredo MD Work Phone: [facility] Work Phone: 12-02-2021 Influenza, Seasonal, Quadrivalent, Adjuvanted Danial Berkowitz MD Work Phone: [facility] [employer] 12-02-2021 influenza virus vacc ine, unspecified formulation Danial Berkowitz MD Work Phone: [facility] 11-02-2021 Covid-19, Moderna Bivalent Booster, (Age 18y+), Im, 50 Mcg/d Danial Berkowitz MD Work Phone: [facility] 06-08-2021 Moderna SARS-CoV-2 Vaccination Danial Berkowitz MD Work Phone: [facility] 12-07-2020 Moderna SARS-CoV-2 Vaccination Danial Berkowitz MD Work Phone: [facility] 11-23-2020 influenza, high dose seasonal, preservative-free Dara Loredo MD Work Phone: [facility] 11-23-2020 Influenza, Seasonal, Quadrivalent, Adjuvanted Danial Berkowitz MD Work Phone: [facility] 11-23-2020 influenza virus vacc ine, unspecified formulation Franklyn Decapua PA-C Work Phone: [facility] 05-07-2020 COVID-19, J&J, PF, 0 .5 mL Danial Berkowitz MD Work Phone: [facility] Work Phone: 02-19-2020 influenza, injectabl e, quadrivalent, contains preservative Franklyn Decapua PA-C Work Phone: [facility] 02-17-2020 Influenza, High-dose , Quadv, 65 yrs +, IM (Fluzone) Danial Berkowitz MD Work Phone: [facility] Work Phone: 02-10-2019 zoster vaccine recombinant Danial Berkowitz MD Work Phone: [facility] 12-11-2018 zoster vaccine recombinant Danial Berkowitz [facility] 11-29-2018 influenza, high dose seasonal, preservative-free Danial Berkowitz MD Work Phone: [facility] 11-29-2018 influenza, injectabl e, quadrivalent, preservative free Danial Berkowitz [place] 11-29-2018 pneumococcal polysaccharide vaccine, 23 valent Danial Berkowitz [facility] 12-06-2017 influenza, high dose seasonal, preservative-free [facility] 12-06-2017 Influenza, injectabl e, Madin Holland Patent Canine Kidney, preservative free, quadrivalent Danial [facility] [place] 01-22-2017 influenza, high dose seasonal, preservative-free [facility] [place] 01-22-2017 pneumococcal conjuga te vaccine, 13 valent [facility] 07-09-2015 tetanus toxoid, redu deborah diphtheria toxoid, and acellular pertussis vaccine, adsorbed [facility] 11-21-2012 Influenza Vaccine, unspecified formulation Danial [facility] [place] 11-21-2012 influenza, seasonal, injectable Danial Berkowitz MD Work Phone: [facility] Payers Date Payer Category Payer Medicare [id number] 2019 Medicare AETNA MEDICARE A ETNA MEDICARE PPO [id number] 2019-Present PPO [id number] 2019 Medicare AETNA MEDICARE A ETNA MEDICARE PPO [id number] 2019-Present [phone] [address] [place] [address] [facility] [id number] 2019 Medicare [id number] 2016 Medicare AETNA MEDICARE A ETNA MEDICARE-ADVANTAGE PPO [id number] 2016-Present [address] [place] [address] Medicare [id number] 2016 Medicare AETNA MEDICARE A ETNA MEDICARE-ADVANTAGE PPO [id number] 2016-Present [address] [place] [address] Medicare [id number] 1951 Unknown [id number] 1950 Unknown [id number] 1951 Unknown [id number] 1951 Unknown [id number] 1951 Unknown [id number] 1950 Unknown [id number] 1951 Unknown [id number] 1950 Unknown [id number] 1950 Unknown [id number] 1950 Unknown [id number] 56 Private Health Insurance Unknown AETNA Social History Date Type Detail Facility Start: 11-29-2018 End: 12-21-2021 Tobacco smoking status NHIS Never smoker [facility] Start: 11-29-2018 End: 05-26-2022 [facility] Start: 11-16-2014 Alcohol Comment occass. [facility] Start: 1950 Sex Assigned At Not on file [facility] [place] Start: 12-30-2018 End: 02-01-2023 Alcohol intake Current drinker of alcohol (finding) [place] Start: 03-14-2019 End: 12-21-2021 Tobacco use and exposure Never used [place] Start: 03-14-2019 History SDOH Education 15 [facility] Work Phone: Start: 03-14-2019 End: 05-26-2022 History SDOH Financial 5 [facility] Work Phone: Start: 03-14-2019 End: 05-26-2022 History SDOH Food Worry 1 [facility] Work Phone: Start: 03-14-2019 End: 05-26-2022 History SDOH Transport Med 2 [facility] Work Phone: Start: 03-14-2019 Alcohol Comment social drinking [place], [place] Start: 03-14-2019 Alcohol Comment social drinking [facility] Work Phone: Start: 07-30-2020 End: 05-26-2022 Alcohol intake [facility] Work Phone: Start: 12-20-2020 History SDOH Alcohol Comment Not weekly [facility] Start: 05-03-2021 End: 10-10-2022 Exposure to SARS-CoV-2 (event) Not sure [facility] How hard is it for y ou to pay for the very basics like food, housing, medical care, and heating Not hard at all [facility] (I/We) worried gael er (my/our) food would run out before (I/we) got money to buy more. Never true [facility] How often to you hav e a drink containing alcohol? Monthly or less [facility] How many standard drinks containing alcohol do you have on a typical day? 1 or 2 [facility] How often do you hav e 6 or more drinks on 1 occasion? Never [facility] Start: 02-01-2023 Alcohol Comment [facility] NEGATED: Highlighted rowStart: NINF History of tobacco use Passive smoker [facility] Medical Equipment Procedure Code Equipment Code Equipment Origin al Text Equipment Identifier Dates Cement Simplex P Bone Radiopaque Full Dose Sterile - [id number] Start: 03-15-2020 Cement Simplex P Bone Radiopaque Full Dose Sterile - [id number] Start: 03-15-2020 Cement Simplex P Tobramycin Bone Full Dose Radiopaque Preblend Sterile - [id number] Start: 12-27-2020 Cement Simplex P Tobramycin Bone Full Dose Radiopaque Preblend Sterile - [id number] Start: 12-27-2020 Persona Imp Knee Surf Artc R 11 12/ 08-1985-589-11 [id number] Start: 03-15-2020 Insert Persona 8 -11 G-H Vivacit-E 12mm Articular Sterile Knee Left [id number] Start: 12-27-2020 Component Person a 12 Standard Cocr Femoral Cruciate Retain - [id number] Start: 03-15-2020 Component 35mm A ll Poly Patellar Psn - [id number] Start: 03-15-2020 Component Person a 11 Standard Cocr Femoral Cruciate Retain - [id number] Start: 12-27-2020 Component 35mm A ll Poly Patellar Psn - [id number] Start: 12-27-2020 Baseplate Person a 5d H Tivanium Tibial Cemented Stem Knee Right - [id number] Start: 03-15-2020 Extension Person a 14mm Taper 30+ Mm Stem Knee Tibia - [id number] Start: 03-15-2020 Extension Person a 14mm Taper 30+ Mm Stem Knee Tibia - [id number] Start: 12-27-2020 Baseplate Person a 5d H Tivanium Tibial Cemented Stem Knee Left - [id number] Start: 12-27-2020 Clinical Notes 03-03-2020 to 02-01-2023 Jamarcus Irving PA-C - 02/01/2023 1:00 PM Pete Renae LPN - 02/01/2023 1:00 PM Pete Renae LPN - 02/01/2023 1:00 PM ESTPatient Juan Carlos Salmeron RN - 11/13/2022 9:00 AM EDT Note Date & Type Note Facility 02-01-2023 History of Present illness Narrative Images from the original note were not included. Prechart note: (the following data was documented before the visit began) Rooming: vision screening, living will, and clock :) Possible agenda: Provider notes: Health Maintenance to be addressed today: Click to review open orders Labs Encounters Imaging [place] Medicaid Formulary ([place]/[facility]/[place]) Noam [facility] Health Maintenance Due Topic RSV Immunization aged 60 or older (1 - 1-dose 60+ series) Influenza Vaccine (1) COVID-19 Vaccine (2022-24 season) (end precharting)- [facility] [address] [facility] [address] Dept: [phone] Dept Chief Complaint: Abdifatah Macario is an 72 y.o. male here for an annual wellness visit. Assessment/Plan : Problem List Items Addressed This Visit Circulatory Essential hypertension - Chronic, stable. BP in office was 129/70. Patient is not currently on any hypertension medication management. Endocrine/Metabolic Prediabetes Last A1c was 09/2021 and was 6.3. Other Visit Diagnoses Encounter for Medicare annual wellness exam - Primary - Patient present for his medicare annual wellness visit. Medication and problem list are up to date. Went through medications and removed ones that he is no longer taking. Vitals reviewed. I have reviewed and reconciled the medication list with the patient today. Current Outpatient Medications Medication Sig Dispense Refill alpha tocopherol (Vitamin E) 400 units capsule Take 400 Units by mouth in the morning. cholecalciferol (Vitamin D-3) 50 MCG (1999 UT) tablet Take by mouth. coenzyme Q-10 200 MG capsule Take 1 tablet by mouth in the morning. cyanocobalamin (Vitamin B-12) 1000 MCG tablet Take 2,000 mcg by mouth in the morning. famotidine (Pepcid) 20 MG tablet TAKE ONE TABLET BY MOUTH AT BEDTIME DIRECTED ipratropium (Atrovent) 0.03 % nasal spray 2 sprays every 12 hours as needed. PRN metaxalone (Skelaxin) 800 MG tablet Take 1 tablet (800 mg) by mouth 2 times daily as needed for muscle spasms. 180 tablet 3 MULTIPLE VITAMINS-MINERALS PO Take 1 tablet by mouth in the morning. pantoprazole (ProtoNix) 40 MG EC tablet TAKE 1 TABLET DAILY 90 tablet 3 rosuvastatin (Crestor) 20 MG tablet TAKE 1 TABLET NIGHTLY 90 tablet 3 tamsulosin (Flomax) 0.4 MG 24 hr capsule TAKE 1 CAPSULE DAILY 90 capsule 3 No current facility-administered medications for this visit. Also reviewed during this visit: Allergies Meds Problems The following health maintenance schedule was reviewed with the patient and provided in printed form in the after visit summary: Health Maintenance Topic Date Due RSV Immunization aged 60 or older (1 - 1-dose 60+ series) Never done Influenza Vaccine (1) 10/13/2022 COVID-19 Vaccine ( - 2022-24 season) 2022 Depression Screening 10/18/2023 Medicare Advantage Annual Wellness Visit (AWV) 03/03/2024 Diabetes Screening 09/23/2024 DTaP/Tdap/Td Vaccines (2 - Td or Tdap) 07/08/2025 Colorectal Cancer Screening 11/10/2025 Lipid Panel 12/28/2026 Pneumococcal Vaccine: 65+ Years Completed Zoster Vaccines Completed Hepatitis C Screening Completed RSV Immunization under 20 Months Aged Out HIB Vaccines Aged Out Hepatitis B Vaccines Aged Out IPV Vaccines Aged Out Hepatitis A Vaccines Aged Out Meningococcal Vaccine Aged Out Rotavirus Vaccines Aged Out HPV Vaccines Aged Out List of current healthcare providers: Patient Care Team: Danial Berkowitz MD as PCP - General No orders of the defined types were placed in this encounter. Subjective : Health Risk Assessment: General: General In general, how would you say your health is?: Very good In the past 7 days, have you experienced any of the following: New or Increased Pain, New or Increased Fatigue, Loneliness, Social Isolation, Stress or Anger?: No Do you get the social and emotional suppport you need?: Yes Health Habits/Nutrition: Health Habits / Nutrition On average, how many days per week do you engage in moderate to strenous exercise (like a brisk walk)?: 1 day On average, how man minutes do you engage in exercise at this level?: 30 min Have you lost any weight without trying in the past 3 months? : No Have you seen the dentist within the past year?: Yes Hearing/ Vision: Hearing / Vision Do you or your family notice any trouble with your hearing that hasn't been managed with hearing aids?: No Do you have difficulty driving, watching TV, or doing any of your daily activities because of your eyesight?: No Have you had an eye exam within the past year?: Yes Vision Screening Right eye Left eye Both eyes Without correction 20/40 20/60 20/40 With correction 20/30 20/60 20/40 Safety: Safety Do you have a working smoke detector?: Yes Do you have any tripping hazards - loose or unsecured carpets or rugs?: No Do you have any tripping hazards - clutter in doorways, halls, or stairs?: No Do you have either shower bars, grab bars, non-slip mats or non-slip surfaces in your shower or bathtub? : Yes Do all your stairways have a railing or banister? : Yes Do you fasten your seatbelt when you are in a car?: Yes ADL: ADL In the past 7 days, did you need help from others to perform any of the following everyday activities: Eating, dressing, grooming,bathing, toileting, or walking / balance? : No In the past 7 days, did you need help from others to take care of any of the following: laundry, housekeeping, banking / finances,shopping, telephone use, food preparation, transportation, or taking medications? : No Living Will: Living Will Do you have a living will?: Yes Cognitive: Cognitive Screening: Mini-Cog Clock Drawing Test (CDT): 2 Words Recalled: 2 Total Score: 4 Total Score Interpretation: Normal Mini-Cog Fall Risk: Fall Risk One or more falls in the last year:: No Advised to use a cane or walker to get around safely:: No Feels unsteady when walking:: No Steadies self on furniture while walking at home:: No Worried about falling:: No Depression Screening: Over the past 2 weeks, how often have you been bothered by any of the following problems? Little interest or pleasure in doing things: Not at all Feeling down, depressed, or hopeless: Not at all Patient Health Questionnaire-2 Score: 0 Tobacco Use: Social History Tobacco Use Smoking Status Never Passive exposure: Never Smokeless Tobacco Never Alcohol Use: Audit Alcohol Screening Q1: How often do you have a drink containing alcohol?: Monthly or less Q2: How many drinks containing alcohol do you have on a typical day when you are drinking?: 1 or 2 Q3: How often do you have six or more drinks on one occasion?: Never Audit-C Score: 1 Skip to questions 9-10?: 1 Objective : BP 129/70 (BP Location: Left arm, Patient Position: Sitting) Pulse 77 Temp 36.2 C (97.1 F) (Temporal) Ht 5' 8 (1.727 m) Wt 236 lb (107 kg) BMI 35.88 kg/m Vision Screening Right eye Left eye Both eyes Without correction 20/40 20/60 20/40 With correction 20/30 20/60 20/40 Jamarcus Irving PA-C 02/01/2023 Pt asked if they have been to specialist,been in ER /hospitalized or had testing since last visit. Yes Patient was able to ambulate safely to the examination room. Provider was not notified of possible fall risk documented in this encounter [facility] 02-01-2023 Instructions Jamarcus Irving PA-C - 02/01/2023 1:00 PM EST Personalized Preventative Plan for Abdifatah Macario - 02/01/2023 Medicare offers a range of preventative health benefits. Some of the tests and screenings are paid in full while others may be subject to a deductible, co-insurance, and / or copay. Some of these benefits include a comprehensive review of your medical history including lifestyle, illnesses that may run in your family, and various assessments and screenings as appropriate. After reviewing your medical record and screening and assessments performed today, your provider may have ordered immunizations, labs, imaging, and / or referrals for you. A list of these orders (if applicable) as well as your Preventative Care list are included within your After Visit Summary for your review. Other Preventative Recommendations: A preventive eye exam by an clinical operations specialist is recommended every 1-2 years to screen for glaucoma, cataracts, macular degeneration, and other eye disorders. A preventive dental visit is recommended every 6 months. Try to get at least 150 minutes of exercise per week or 10,000 steps per day on a pedometer. You need 1200-1500mg of calcium and 0112-1469 international units of vitamin D per day. It is possible to meet your calcium requirement with diet alone, but a vitamin D supplement is usually necessary to meet this goal. When exposed to the sun, use a sunscreen that protects against both UVA and UVB radiation with an SPF of 30 or greater. Reapply every 2-3 hours or after sweating, drying off with a towel, or swimming. Always wear a seat belt when traveling in a car. Always wear a helmet when riding a bicycle or a motorcycle documented in this encounter [facility] 11-13-2022 History of Present illness Narrative Pt asked if they have been to specialist,been in ER /hospitalized or had testing since last visit. no Patient was able to ambulate safely to the examination room. Provider was not notified of possible fall risk Images from the original note were not included. [facility] [address] [facility] [address] Dept: [phone] Dept Loc: [phone] Visit type: Established patient Reason for Visit: Follow-up and Anxiety Assessment and Plan Problem List Items Addressed This Visit None Visit Diagnoses Anxiety Relevant Medications hydrOXYzine HCl (Atarax) 25 MG tablet -Patient's social situation with his dispute with brother over real estate is coming to an end. -Patient takes Atarax occasionally at night to help him fall asleep. Sometimes he takes meclizine instead to help him fall asleep if he feels like he will become too heavily sedated. -Patient will return for Medicare Annual Visit with PCP. Follow up in about 3 months (around 02/13/2023) for Medicare Visit with [facility] (whenever available). current treatment plan is effective, no change in therapy, orders and follow up as documented in EMR, reviewed medications and side effects in detail Subjective HPI This is a 72-year-old male who presents to the clinic today for follow-up for anxiety. This is more of a situational anxiety that is related to a social situation--an ongoing real state dispute with his brother. Patient was having trouble falling asleep before because he was thinking about the situation and was anxious. He states that the Atarax that was prescribed to him did help him fall asleep. If he feels too drowsy, he will take meclizine instead. He requested a refill for the Atarax. Review of Systems Psychiatric/Behavioral: Positive for decreased concentration and sleep disturbance. Negative for suicidal ideas. The patient is nervous/anxious. No Known Allergies Outpatient Medications Prior to Visit Medication Sig Dispense Refill alpha tocopherol (Vitamin E) 400 units capsule Take 400 Units by mouth in the morning. cholecalciferol (Vitamin D-3) 50 MCG (2000 UT) tablet Take by mouth. coenzyme Q-10 200 MG capsule Take 1 tablet by mouth in the morning. cyanocobalamin (Vitamin B-12) 1000 MCG tablet Take 2,000 mcg by mouth in the morning. famotidine (Pepcid) 20 MG tablet TAKE ONE TABLET BY MOUTH AT BEDTIME DIRECTED Glucosamine-Chondroitin 500-250 MG capsule Take 1 tablet by mouth in the morning. Green Tea 150 MG capsule Take by mouth. ipratropium (Atrovent) 0.03 % nasal spray 2 sprays every 12 hours as needed. PRN metaxalone (Skelaxin) 800 MG tablet Take 1 tablet (800 mg) by mouth 2 times daily as needed for muscle spasms. 180 tablet 3 MULTIPLE VITAMINS-MINERALS PO Take 1 tablet by mouth in the morning. pantoprazole (ProtoNix) 40 MG EC tablet Take 1 tablet by mouth in the morning. rosuvastatin (Crestor) 20 MG tablet TAKE 1 TABLET NIGHTLY 90 tablet 3 tamsulosin (Flomax) 0.4 MG 24 hr capsule TAKE 1 CAPSULE DAILY 90 capsule 3 hydrOXYzine HCl (Atarax) 25 MG tablet Take 1 tablet (25 mg) by mouth every 8 hours as needed for anxiety. 120 tablet 0 Flaxseed, Linseed, (Flax Seed Oil) 1300 MG capsule Take 1,300 mg by mouth. furosemide (Lasix) 20 MG tablet Take 2 tablets (40 mg) by mouth 2 times daily. (Patient not taking: Reported on 11/13/2022) 360 tablet 3 potassium chloride ER (Micro-K) 10 MEQ ER capsule TAKE 1 CAPSULE TWICE A DAY (Patient not taking: Reported on 11/13/2022) 180 capsule 3 sucralfate (Carafate) 1 g tablet Take 1 tablet by mouth in the morning, at noon, in the evening, and at bedtime. No facility-administered medications prior to visit. Patient Active Problem List Diagnosis Date Noted BPH (benign prostatic hyperplasia) 12/21/2021 Priority: Medium Overview Note: Last Assessment & Plan: Assessment: Symptoms currently stable on Flomax. Capillary leak syndrome 12/21/2021 Priority: Medium Overview Note: Last Assessment & Plan: Assessment: Patient reports this is chronic, started after chemotherapy. Takes Lasix, wears compression stockings. Prediabetes 09/23/2021 Priority: Medium History of total knee replacement 03/15/2020 Priority: Medium Hyperlipidemia 05/12/2016 Priority: Medium Overview Note: Last Assessment & Plan: Assessment: Compliant with Rx. Following with cardiology/PCP. Macrocytic anemia 10/15/2020 Overview Note: No b 12 or folate def. Likely related to [place] effect[facility] of chemo. 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 ADHD (attention deficit hyperactivity disorder) 05/03/2020 History of breast cancer in male 05/03/2020 Overview Note: Stage IIA Patent foramen ovale 05/03/2020 Overview Note: Per cardio no treatment needed Casarez's esophagus without dysplasia 05/03/2020 Overview Note: egd dec 2015 Chronic superficial gastritis without bleeding 05/03/2020 Overview Note: With atypia Essential hypertension 05/03/2020 Social History Tobacco Use Smoking status: Never Passive exposure: Never Smokeless tobacco: Never Substance Use Topics Alcohol use: Yes Alcohol/week: 0.0 standard drinks of alcohol Family History Problem Relation Name Age of Onset Liver disease Mother BAILEY Kidney disease Other dye-induced renal failre Objective BP 125/67 Pulse 72 Temp 36.4 C (97.5 F) Ht 5' 8 (1.727 m) Wt 224 lb 4.8 oz (102 kg) BMI 34.10 kg/m Physical Exam Vitals and nursing note reviewed. Constitutional: General: He is not in acute distress. HENT: Head: Normocephalic. Mouth/Throat: Mouth: Mucous membranes are moist. Eyes: Conjunctiva/sclera: Conjunctivae normal. Cardiovascular: Rate and Rhythm: Normal rate. Skin: General: Skin is warm and dry. Neurological: Mental Status: He is alert. Gait: Gait normal. Psychiatric: Comments: Maintains good eye contact. Data Reviewed and Summarized NORM VILLAFUERTE MD INDIRECT SUPERVISION THIS SERVICE IS TO BE BILLED UNDER THE PRIMARY CARE EXCEPTION ([facility] -[facility]) During or immediately after this visit, I discussed this case with the treating resident. Our discussion included the history obtained by the resident, the resident's exam findings, and the resident's treatment plan. The resident's note reflects the information we discussed, and I agree with the resident's assessment and treatment plan. documented in this encounter [facility] 10-31-2022 History of Present illness Narrative Note that patient has previously informed me of this result and that follow up was going forward through his specialist documented in this encounter [facility] 10-10-2022 Note Addended by: NORM WHATLEY on: 10/17/2022 10:40 AM Modules accepted: Orders [facility] 10-10-2022 History of Present illness Narrative Pt asked if they have been to specialist,been in ER /hospitalized or had testing since last visit. yes Patient was able to ambulate safely to the examination room. Provider was not notified of possible fall risk Images from the original note were not included. [facility] [address] [facility] [address] Dept: [phone] Dept Loc: [phone] Visit type: Established patient Reason for Visit: Anxiety Assessment and Plan Problem List Items Addressed This Visit None Visit Diagnoses Situational anxiety - Primary Relevant Medications hydrOXYzine HCl (Atarax) 25 MG tablet -TERE-7 Score: 5 -Patient will try Atarax 25 mg as needed for moments of anxiousness. -Patient opted against SSRIs because of prolonged onset of efficacy and the fact that he thinks that he will feel better in several weeks. -Medication side effects reviewed with patient, including drowsiness. Follow up in about 4 weeks (around 11/07/2022) for f/u Anxiety . orders and follow up as documented in EMR, reviewed medications and side effects in detail Subjective HPI This is a 72-year-old male who presents to the clinic today with complaints of anxiousness. Patient states that he is going through the stress of a land agreement, and complexities of dealing with the local government/regulations of that area. As a result, he is having trouble falling asleep because he is thinking about this specific situation. Patient usually turns to his brother for help in difficulties like this, however, his brother is involved in this conflict, as well. Patient had a similar episode of anxiousness a few years ago when he was unemployed. This was around 2009. He tried alprazolam with relief. He tried SSRIs in the past, however, he was not happy that it takes several weeks for it to kick in. . Patient denies suicidal and homicidal ideation. Review of Systems Cardiovascular: Negative for palpitations. Psychiatric/Behavioral: Negative for self-injury and suicidal ideas. The patient is nervous/anxious. No Known Allergies Outpatient Medications Prior to Visit Medication Sig Dispense Refill alpha tocopherol (Vitamin E) 400 units capsule Take 400 Units by mouth in the morning. cholecalciferol (Vitamin D-3) 50 MCG (2000 UT) tablet Take by mouth. coenzyme Q-10 200 MG capsule Take 1 tablet by mouth in the morning. cyanocobalamin (Vitamin B-12) 1000 MCG tablet Take 2,000 mcg by mouth in the morning. famotidine (Pepcid) 20 MG tablet TAKE ONE TABLET BY MOUTH AT BEDTIME DIRECTED furosemide (Lasix) 20 MG tablet Take 2 tablets (40 mg) by mouth 2 times daily. 360 tablet 3 Green Tea 150 MG capsule Take by mouth. ipratropium (Atrovent) 0.03 % nasal spray 2 sprays every 12 hours as needed. PRN metaxalone (Skelaxin) 800 MG tablet Take 1 tablet (800 mg) by mouth 2 times daily as needed for muscle spasms. 180 tablet 3 MULTIPLE VITAMINS-MINERALS PO Take 1 tablet by mouth in the morning. pantoprazole (ProtoNix) 40 MG EC tablet Take 1 tablet by mouth in the morning. potassium chloride ER (Micro-K) 10 MEQ ER capsule TAKE 1 CAPSULE TWICE A DAY 180 capsule 3 rosuvastatin (Crestor) 20 MG tablet TAKE 1 TABLET NIGHTLY 90 tablet 3 tamsulosin (Flomax) 0.4 MG 24 hr capsule TAKE 1 CAPSULE DAILY 90 capsule 3 Flaxseed, Linseed, (Flax Seed Oil) 1300 MG capsule Take 1,300 mg by mouth. Glucosamine-Chondroitin 500-250 MG capsule Take 1 tablet by mouth in the morning. sucralfate (Carafate) 1 g tablet Take 1 tablet by mouth in the morning, at noon, in the evening, and at bedtime. No facility-administered medications prior to visit. Patient Active Problem List Diagnosis Date Noted BPH (benign prostatic hyperplasia) 12/21/2021 Priority: Medium Overview Note: Last Assessment & Plan: Assessment: Symptoms currently stable on Flomax. Capillary leak syndrome 12/21/2021 Priority: Medium Overview Note: Last Assessment & Plan: Assessment: Patient reports this is chronic, started after chemotherapy. Takes Lasix, wears compression stockings. Prediabetes 09/23/2021 Priority: Medium History of total knee replacement 03/15/2020 Priority: Medium Hyperlipidemia 05/12/2016 Priority: Medium Overview Note: Last Assessment & Plan: Assessment: Compliant with Rx. Following with cardiology/PCP. Macrocytic anemia 10/15/2020 Overview Note: No b 12 or folate def. 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 ADHD (attention deficit hyperactivity disorder) 05/03/2020 History of breast cancer in male 05/03/2020 Overview Note: Stage IIA Patent foramen ovale 05/03/2020 Overview Note: Per cardio no treatment needed Casarez's esophagus without dysplasia 05/03/2020 Overview Note: egd dec 2015 Chronic superficial gastritis without bleeding 05/03/2020 Overview Note: With atypia Essential hypertension 05/03/2020 Social History Tobacco Use Smoking status: Never Passive exposure: Never Smokeless tobacco: Never Substance Use Topics Alcohol use: Yes Alcohol/week: 0.0 standard drinks of alcohol Family History Problem Relation Name Age of Onset Liver disease Mother BAILEY Kidney disease Other dye-induced renal failre Objective BP 126/72 Pulse 74 Temp 36.8 C (98.3 F) (Temporal) Ht 5' 8 (1.727 m) Wt 225 lb 1.6 oz (102 kg) BMI 34.23 kg/m Physical Exam Vitals and nursing note reviewed. Constitutional: General: He is not in acute distress. Neurological: Mental Status: He is alert. Gait: Gait normal. Psychiatric: Comments: Maintains good eye contact. Expresses detailed insight of situational anxiousness. Data Reviewed and Summarized NORM VILLAFUERTE MD Images from the original note were not included. INDIRECT SUPERVISION THIS SERVICE IS TO BE BILLED UNDER THE PRIMARY CARE EXCEPTION ([facility] -) During or immediately after this visit, I discussed this case with the treating resident. Our discussion included the history obtained by the resident, the resident's exam findings, and the resident's treatment plan. The resident's note reflects the information we discussed, and I agree with the resident's assessment and treatment plan. -Emmanuel Palacios MD, [facility] Family Medicine documented in this encounter [facility] 10-10-2022 Miscellaneous Notes Addended by: NORM VILLAFUERTE on: 10/17/2022 10:40 AM Modules accepted: Orders documented in this encounter [facility] 10-10-2022 Note Addended by: NORM WHATLEY on: 10/17/2022 10:40 AM Modules accepted: Orders [facility] 10-10-2022 Note Addended by: NORM WHATLEY on: 10/17/2022 10:40 AM Modules accepted: Orders [facility] 10-10-2022 Note Addended by: NORM WHATLEY on: 10/17/2022 10:40 AM Modules accepted: Orders [facility] 10-10-2022 Note Addended by: NORM WHATLEY on: 10/17/2022 10:40 AM Modules accepted: Orders [facility] 10-10-2022 Note Addended by: NORM WHATLEY on: 10/17/2022 10:40 AM Modules accepted: Orders [facility] 05-26-2022 Evaluation + Plan note Associated Problem(s): History of breast cancer in male Surveillance up to date. [facility] 05-26-2022 Miscellaneous Notes Associated Problem(s): History of breast cancer in male Surveillance up to date. Associated Problem(s): Capillary leak syndrome Continue Andrew and dheerajings Associated Problem(s): Macrocytic anemia monitor Associated Problem(s): Casarez's esophagus without dysplasia Increased gerd sx's in spite of sucralfate, pantoprazole. Understands need to lose weight for sx management.refer to GI for this and hx of barrets as well as gastritis with atypia on bx. Associated Problem(s): Essential hypertension Stable, no change. Continue current meds documented in this encounter [facility] 05-26-2022 Evaluation + Plan note Associated Problem(s): Capillary leak syndrome Continue Rasta [facility] 05-26-2022 Evaluation + Plan note Associated Problem(s): Macrocytic anemia monitor [facility] 05-26-2022 Evaluation + Plan note Associated Problem(s): Casarez's esophagus without dysplasia Increased gerd sx's in spite of sucralfate, pantoprazole. Understands need to lose weight for sx management.refer to GI for this and hx of barrets as well as gastritis with atypia on bx. [facility] 05-26-2022 Evaluation + Plan note Associated Problem(s): Essential hypertension Stable, no change. Continue current meds [facility] 05-26-2022 History of Present illness Narrative Images from the original note were not included. [facility] [address] [facility] [address] Dept: [phone] Dept Loc: [phone] Visit type: Established patient Reason for Visit: Follow-up (Seen by Renal doctor ) and Med Refill Assessment and Plan Problem List Items Addressed This Visit Circulatory Essential hypertension Current Assessment & Plan Stable, no change. Continue current meds Digestive Bile reflux gastritis Relevant Orders External referral to Gastroenterology Casarez's esophagus without dysplasia - Primary Overview egd dec 2015 Current Assessment & Plan Increased gerd sx's in spite of sucralfate, pantoprazole. Understands need to lose weight for sx management.refer to GI for this and hx of barrets as well as gastritis with atypia on bx. Relevant Orders External referral to Gastroenterology Chronic superficial gastritis without bleeding Overview With atypia Genitourinary BPH (benign prostatic hyperplasia) Overview Last Assessment & Plan: Assessment: Symptoms currently stable on Flomax. Other Capillary leak syndrome Overview Last Assessment & Plan: Assessment: Patient reports this is chronic, started after chemotherapy. Takes Lasix, wears compression stockings. Current Assessment & Plan Continue Lasix and stockings Relevant Medications furosemide (Lasix) 20 MG tablet History of breast cancer in male Overview Stage IIA Current Assessment & Plan Surveillance up to date. Other Visit Diagnoses Muscle spasms of neck Relevant Medications metaxalone (Skelaxin) 800 MG tablet Follow up in about 6 months (around 11/25/2022). Subjective HPI 71 yo retired P[employer] male with hx of breast cancer s/p chemo with resultant peripheral edema likely due to capillary leak syndrome, a known side effect of the chemo agent. Has been managing with lasix 40 mg bid (20 mg tabs). Does titrate dose to control symptoms. Renal consult due to large dose of lasix needed (he was taking much more at one point) and discovery of proteinuria. Renal is following. Currently doing will with the edema. Wears compression stockings. Was on WING for proteinuria and htn but did not tolerated hypotension when started tamsulosin so stopped it. Tamsoulsin is helping a lot, voiding well, no feeling of incomplete emtying, post void dribble. Some increase in reflux sx's, requests GI referral as his has retired. Has chronic bile reflux, Metaxolne takes PRN neck, back spasms. Last dose last pm. Not taking it on a regular basis. Sx's are well controlled. Review of Systems All other systems reviewed and are negative. No Known Allergies Social History Tobacco Use Smoking status: Never Passive exposure: Never Smokeless tobacco: Never Substance Use Topics Alcohol use: Yes Alcohol/week: 0.0 standard drinks Objective BP 129/75 Pulse 68 Temp 36.7 C (98 F) (Temporal) Ht 5' 8 (1.727 m) Wt 231 lb 1.6 oz (105 kg) BMI 35.14 kg/m Physical Exam Constitutional: Appearance: Normal appearance. He is obese. Cardiovascular: Rate and Rhythm: Normal rate and regular rhythm. Heart sounds: Normal heart sounds. Pulmonary: Effort: Pulmonary effort is normal. Neurological: General: No focal deficit present. Mental Status: He is alert and oriented to person, place, and time. Gait: Gait normal. Psychiatric: Mood and Affect: Mood normal. Data Reviewed and Summarized Labs: Lab Results Component Value Date WBC 7.4 08/23/2021 HGB 13.0 08/23/2021 CHOL 174 12/28/2021 TRIG 195 (H) 12/28/2021 HDL 50 12/28/2021 AST 24 08/23/2021 NA 139 08/23/2021 K 4.6 08/23/2021 CL 102 08/23/2021 CREATININE 1.08 08/23/2021 BUN 20 (H) 08/23/2021 CO2 32 (H) 08/23/2021 TSH 2.459 08/23/2021 PSA 0.672 08/23/2021 Imaging/Testing: Danial Berkowitz MD Patient was able to ambulate safely to the examination room. Provider was not notified of possible fall risk Pt asked if they have been to specialist,been in ER /hospitalized or had testing since last visit. YES_ seen by Renal and Optometrists documented in this encounter [facility] 09-19-2021 Miscellaneous Notes Patient phones requesting refills as follows: Pending Prescriptions Disp Refills SUCRALFATE 1 GRAM TABLET 360 tablet 3 Sig: TAKE 1 TABLET FOUR TIMES A DAY JULIA: Yes Please review and advise. Codie Pena Ma documented in this encounter [facility] 05-13-2021 Note HNO ID: [id number] Author: Yvon Warner MD Service: ? Author Type: Physician Type: Progress Notes Filed: 05/13/2021 9:08 AM Note Text: CHIEF COMPLAINT: Patient presents with: Nausea: Colon 11/10/20 labs 12/28/20 HPI Abdifatah Macario is a 70 year old male here today for Nausea (Colon 11/10/20 labs 12/28/20). Patient has ongoing nausea, requesting zofran. EGD had showed small hiatal hernia and bile reflux of stomach and into hernia sac. No abdominal pain or vomiting. GERD is stable. Current Outpatient Medications Medication Sig - sucralfate (CARAFATE) 1 gram tablet Take 1 tablet by mouth four times daily. - Multivitamin capsule Take 1 capsule by mouth once daily. - cyanocobalamin, vitamin B-12, (VITAMIN B-12 ORAL) Take by mouth. - tamsulosin (FLOMAX) 0.4 mg Take 0.4 mg by mouth once daily. - pantoprazole DR (PROTONIX) 40 mg tablet Take 40 mg by mouth once daily. - enalapril (VASOTEC) 5 mg tablet Take 5 mg by mouth once daily. - furosemide (LASIX) 20 mg tablet Take 20 mg by mouth twice daily. - rosuvastatin (CRESTOR) 20 mg tablet Take 20 mg by mouth daily at bedtime. - potassium chloride SR (MICRO-K) 10 mEq CR capsule Take 10 mEq by mouth twice daily. - Ipratropium Justin (ATROVENT) 0.03 % nasal spray Use 2 Sprays in the nose as needed. - ondansetron (ZOFRAN) 4 mg tablet Take 1 tablet by mouth every 8 hours as needed for nausea/vomiting (for nausea.). - amoxicillin (POLYMOX, AMOXIL) 500 mg capsule Take 4 tabs(2grams) one hour prior to dental procedure. No current facility-administered medications for this visit. ALLERGIES No Known Allergies Social History Tobacco Use - Smoking status: Never Smoker - Smokeless tobacco: Never Used Vaping Use - Vaping Use: Never used Substance Use Topics - Alcohol use: Yes Comment: Not weekly - Drug use: Never PAST MEDICAL HISTORY Diagnosis Date - Anemia - Arthritis - Casarez's esophagus - BPH (benign prostatic hyperplasia) - Breast cancer (HCC) - Colon polyps - Diverticulosis - GERD (gastroesophageal reflux disease) - Hiatal hernia - HTN (hypertension) - Hypercholesteremia - Mixed hyperlipidemia - Skin cancer PAST SURGICAL HISTORY Procedure Laterality Date - ADENOIDECTOMY HX - ANKLE SURGERY HX Left 07/1999 removal of hardware - COLONOSCOPY GEN ANES 09/18/2012 Diverticulosis - COLONOSCOPY GEN ANES 11/10/2020 - EGD 12/29/2015 Casarez's Esophagus, Hiatal Hernia, Mild chronic gastritis, mildly active - EGD 08/18/2020 - KNEE ARTHROSCOPY/SURGERY Right 2015 - MASTECTOMY HX Right 2009 - OPEN RX ANKLE DISLOCATN+FIXATN Left 1998 - REPAIR UMBILICAL HERNIA 2012 - REVISE MEDIAN N/CARPAL TUNNEL SURG Bilateral - TONSILLECTOMY HX - TOTAL KNEE REPLACEMENT Right 02/2020 FAMILY HISTORY Problem Relation Age of Onset - Diabetes Mother - Kidney Disease Mother - Heart Mother CABG - Lymphoma Father - Breast Cancer Sister - Colon Cancer No Family History REVIEW OF SYSTEMS Review of Systems Cardiovascular: Positive for leg swelling. Gastrointestinal: Positive for nausea. PHYSICAL EXAM BP 122/68 Pulse 79 Ht 5' 8 (1.73m) Wt 232 lb (105.2kg) BMI 35.28 kg/(m2). Physical Exam HENT: Head: Normocephalic and atraumatic. Eyes: General: No scleral icterus. Conjunctiva/sclera: Conjunctivae normal. Cardiovascular: Rate and Rhythm: Normal rate and regular rhythm. Heart sounds: Normal heart sounds. Pulmonary: Effort: Pulmonary effort is normal. Breath sounds: Normal breath sounds. Abdominal: General: Bowel sounds are normal. Palpations: Abdomen is soft. Musculoskeletal: Cervical back: Neck supple. Skin: General: Skin is warm and dry. Neurological: Mental Status: He is alert and oriented to person, place, and time. Psychiatric: Judgment: Judgment normal. ASSESSMENT: Bile acid esophageal reflux (primary encounter diagnosis) Duodenogastric bile reflux Nausea Diverticulosis Hiatal hernia Gastroesophageal reflux disease, unspecified whether esophagitis present PLAN: No orders found for this visit on 05/13/21. No follow-ups on file. Zofran ordered for nausea Continue PPI and carafate Yvon Warner MD DATE: 05/13/21 TIME: 8:38 AM [facility] 05-13-2021 History of Present illness Narrative CHIEF COMPLAINT: Patient presents with: Nausea: Colon 11/10/20 labs 12/28/20 HPI Abdifatah Macario is a 70 year old male here today for Nausea (Colon 11/10/20 labs 12/28/20). Patient has ongoing nausea, requesting zofran. EGD had showed small hiatal hernia and bile reflux of stomach and into hernia sac. No abdominal pain or vomiting. GERD is stable. Current Outpatient Medications Medication Sig sucralfate (CARAFATE) 1 gram tablet Take 1 tablet by mouth four times daily. Multivitamin capsule Take 1 capsule by mouth once daily. cyanocobalamin, vitamin B-12, (VITAMIN B-12 ORAL) Take by mouth. tamsulosin (FLOMAX) 0.4 mg Take 0.4 mg by mouth once daily. pantoprazole DR (PROTONIX) 40 mg tablet Take 40 mg by mouth once daily. enalapril (VASOTEC) 5 mg tablet Take 5 mg by mouth once daily. furosemide (LASIX) 20 mg tablet Take 20 mg by mouth twice daily. rosuvastatin (CRESTOR) 20 mg tablet Take 20 mg by mouth daily at bedtime. potassium chloride SR (MICRO-K) 10 mEq CR capsule Take 10 mEq by mouth twice daily. Ipratropium Justin (ATROVENT) 0.03 % nasal spray Use 2 Sprays in the nose as needed. ondansetron (ZOFRAN) 4 mg tablet Take 1 tablet by mouth every 8 hours as needed for nausea/vomiting (for nausea.). amoxicillin (POLYMOX, AMOXIL) 500 mg capsule Take 4 tabs(2grams) one hour prior to dental procedure. No current facility-administered medications for this visit. ALLERGIES No Known Allergies Social History Tobacco Use Smoking status: Never Smoker Smokeless tobacco: Never Used Vaping Use Vaping Use: Never used Substance Use Topics Alcohol use: Yes Comment: Not weekly Drug use: Never PAST MEDICAL HISTORY Diagnosis Date Anemia Arthritis Casarez's esophagus BPH (benign prostatic hyperplasia) Breast cancer (HCC) Colon polyps Diverticulosis GERD (gastroesophageal reflux disease) Hiatal hernia HTN (hypertension) Hypercholesteremia Mixed hyperlipidemia Skin cancer PAST SURGICAL HISTORY Procedure Laterality Date ADENOIDECTOMY HX ANKLE SURGERY HX Left 07/1999 removal of hardware COLONOSCOPY GEN ANES 09/18/2012 Diverticulosis COLONOSCOPY GEN ANES 11/10/2020 EGD 12/29/2015 Casarez's Esophagus, Hiatal Hernia, Mild chronic gastritis, mildly active EGD 08/18/2020 KNEE ARTHROSCOPY/SURGERY Right 2016 MASTECTOMY HX Right 2009 OPEN RX ANKLE DISLOCATN+FIXATN Left 1998 REPAIR UMBILICAL HERNIA 2012 REVISE MEDIAN N/CARPAL TUNNEL SURG Bilateral TONSILLECTOMY HX TOTAL KNEE REPLACEMENT Right 02/2020 FAMILY HISTORY Problem Relation Age of Onset Diabetes Mother Kidney Disease Mother Heart Mother CABG Lymphoma Father Breast Cancer Sister Colon Cancer No Family History REVIEW OF SYSTEMS Review of Systems Cardiovascular: Positive for leg swelling. Gastrointestinal: Positive for nausea. PHYSICAL EXAM BP 122/68 Pulse 79 Ht 5' 8 (1.73m) Wt 232 lb (105.2kg) BMI 35.28 kg/(m^2). Physical Exam HENT: Head: Normocephalic and atraumatic. Eyes: General: No scleral icterus. Conjunctiva/sclera: Conjunctivae normal. Cardiovascular: Rate and Rhythm: Normal rate and regular rhythm. Heart sounds: Normal heart sounds. Pulmonary: Effort: Pulmonary effort is normal. Breath sounds: Normal breath sounds. Abdominal: General: Bowel sounds are normal. Palpations: Abdomen is soft. Musculoskeletal: Cervical back: Neck supple. Skin: General: Skin is warm and dry. Neurological: Mental Status: He is alert and oriented to person, place, and time. Psychiatric: Judgment: Judgment normal. ASSESSMENT: Bile acid esophageal reflux (primary encounter diagnosis) Duodenogastric bile reflux Nausea Diverticulosis Hiatal hernia Gastroesophageal reflux disease, unspecified whether esophagitis present PLAN: No orders found for this visit on 05/13/21. No follow-ups on file. Zofran ordered for nausea Continue PPI and carafate Yvon Warner MD DATE: 05/13/21 TIME: 8:38 AM documented in this encounter [facility] 03-23-2021 Note HNO ID: [id number] Author: Deandre Garcia MD Service: ? Author Type: Physician Type: Progress Notes Filed: 03/23/2021 3:32 PM Note Text: Ortho Knee Follow Up Note Narrative Referring Provider: SELF PCP: Danial Berkowitz MD IMPRESSION/PLAN: 70 year old s/p Left Total Knee Replacement completed on 12/27/2020. Left knee seems to be recovering more slowly than his recollection of right. No fevers or chills. Pain along IT band and MCL. Orthopaedic Surgeries 12/27/2020 (12w, 2d) ARTHROPLASTY REPLACE JOINT TOTAL KNEE (Left) Deandre Garcia MD; Marco Antonio Yang MD - Posted 03/15/2020 (1yr) ARTHROPLASTY REPLACE JOINT TOTAL KNEE (Right) Deandre Garcia MD; Ulices Soni DO - Posted PAIN EVALUATION No data found in the last 1 encounters. IMPRESSION: At normal post-operative stage of recovery. PLAN: No new treatment indicated: Routine follow-up. Patient Reassurance: Normal post-operative course discussed with patient. Progress appears to be with the normal speed of recovery. Patient reassured and supported. All questions answered. Follow up 1 year X-Rays Needed Abdifatah Macario presents today for a an early post-op visit 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 Breast Cancer in Male (Hcc) Essential Hypertension Hyperlipidemia Patent Foramen Ovale Class 2 Obesity Due to Excess Calories With Body Mass Index (Bmi) of 35.0 to 35.9 in Adult Status Post Total Right Knee Replacement Primary Osteoarthritis of Left Knee Heart Murmur Bph (Benign Prostatic Hyperplasia) Anemia Bilateral Leg Edema Prediabetes Status Post Total Knee Replacement, Left Status post op: BMI: There is no height or weight on file to calculate BMI. Post-operative recovery was complicated by uneventful/none. Readmission(s) since surgery (90 days post)? No ED Visits AND Hospitalizations - Last 180 days 12/27/20 Deandre Garcia MD, LU5D Status post total knee replacement, left, Admission (Discharged) Patient rates their condition as improving. Does the patient still experience pain? see MIDAS Form Post Op discharge patient location: in home. Functional Assessment is as follows: has already started outpatient PT as of this visit. Functional difficulties: None. Pain Medication: Non-narcotic Current Opioids Analgesic Opioid Agonists Start End oxyCODONE IR (ROXICODONE) 5 mg immediate release tablet 02/03/2021 Sig - Route: Take 1-2 tablets by mouth every 6 hours as needed for pain. - ORAL Earliest Fill Date: 02/03/2021 Currently Ambulating with: no ambulation aides EXAM: POST OP KNEE Left Post-Operative Knee Ambulates with a: normal gait. SKIN: Appropriate postop appearance, No evidence of erythema, warmth, discharge or drainage and Incision well healed. Range of motion is 0 degrees in extension and 110 degrees of flexion. Extension La degrees Pain with ROM:No There is slight effusion. Mal-alignment: No Tender to the palpation of MCL, distal IT band Neurovascular Status: Sensation Intact, Moves foot and ankle up AND down and 2+ dorsalis pedis Stability:Anterior/Posterior- Yes, stable and Varus/Valgus- Yes, stable Quad strength: normal Imagin. None today. Provider: Deandre Garcia MD Completed by: Juancarlos Ochoa MD I personally evaluated this patient and agree with the note from the nurse/resident/fellow including PMH, PSH, SH, meds, allergies, and review of systems. I completed the HPI and performed the physical exam. Additionally I reviewed available imaging and wrote my interpretation. I wrote the Assessment and Plan. [facility] 01-27-2021 Note HNO ID: [id number] Author: Deandre Garcia MD Service: ? Author Type: Physician Type: Progress Notes Filed: 01/27/2021 1:05 PM Note Text: Ortho Knee Follow Up Note Narrative Referring Provider: SELF PCP: Danial Berkowitz MD IMPRESSION/PLAN: 70 year old s/p Left Total Knee Replacement completed on 12/27/2020. Orthopaedic Surgeries 12/27/2020 (4w, 3d) ARTHROPLASTY REPLACE JOINT TOTAL KNEE (Left) Deandre Garcia MD; Marco Antonio Yang MD - Posted 03/15/2020 (10mo) ARTHROPLASTY REPLACE JOINT TOTAL KNEE (Right) Deandre Garcia MD; Ulices Soni DO - Posted PAIN EVALUATION 01/27/2021 1057 Pain Level: 4 Pain Location: Knee-Left Description: Aching Duration Amount of Time: 1 Duration Units: Months Frequency: Intermittent Intervention/Comfort measure: Medication;Exercise Comments: PT IMPRESSION: Excellent early outcome No complaints or limitations At normal post-operative stage of recovery. PLAN: No new treatment indicated: Routine follow-up. Continue current conservative treatment. Patient Reassurance: Normal post-operative course discussed with patient. Progress appears to be with the normal speed of recovery. Patient reassured and supported. All questions answered. 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 Post-operative recovery was complicated by uneventful/none. Readmission(s) since surgery (90 days post)? No ED Visits AND Hospitalizations - Last 180 days 12/27/20 Deandre Garcia MD, LU5D Status post total knee replacement, left, Admission (Discharged) Patient rates their condition as improving. Does the patient still experience pain? With PT and with deep flexion Post Op discharge patient location: in home. Functional Assessment is as follows: has already started outpatient PT as of this visit. Functional difficulties: None. Pain Medication: Narcotic Current Opioids Analgesic Opioid Agonists Start End oxyCODONE IR (ROXICODONE) 5 mg immediate release tablet 01/21/2021 Sig - Route: Take 1-2 tablets by mouth every 6 hours as needed for pain. - ORAL Earliest Fill Date: 01/21/2021 Currently Ambulating with: no ambulation aides EXAM: POST OP KNEE Left Post-Operative Knee Ambulates with a: limp favoring the left. SKIN: Appropriate postop appearance, No evidence of erythema, warmth, discharge or drainage and Incision clean/dry/intact. Range of motion is 5 degrees in extension and 100 degrees of flexion. Extension La degrees Pain with ROM:No There is Mild effusion. Mal-alignment: No Tender to the palpation of incision Neurovascular Status: Sensation Intact, Moves foot and ankle up AND down and 2+ dorsalis pedis Stability:Anterior/Posterior- Yes, stable and Varus/Valgus- Yes, stable Quad strength: improving Imagin. Implants are well aligned. Implants are well fixed. There is no evidence of loosening. There is evidence of osteo-integration. There is no evidence of osteolysis. Patella is well positioned. Provider: Deandre Garcia MD Completed by: Marco Antonio Yang MD I personally evaluated this patient and agree with the note from the nurse/resident/fellow including PMH, PSH, SH, meds, allergies, and review of systems. I completed the HPI and performed the physical exam. Additionally I reviewed available imaging and wrote my interpretation. I wrote the Assessment and Plan. [facility] 01-27-2021 Note HNO ID: [id number] Author: RT Rakesh(R) Service: Radiology Author Type: Technologist Type: Progress Notes Filed: 01/27/2021 10:46 AM Note Text: Radiology Service Progress Note PATIENT NAME: Abdifatah Macario DATE OF SERVICE: January 27, 2021 TIME: 10:46 AM PATIENT IDENTITY VERIFICATION COMPLETED USING TWO (2) IDENTIFIERS: Name and Date of confirmed by patient verbally. FALL SCREENING: Has the patient had 2 falls in the last year or 1 fall with injury or currently using an Ambulatory Assistive Device (Walker, Cane, Wheelchair, Crutches, etc.)? No PATIENT GENDER DATA: Male PATIENT RELEVANT IMPLANT DATA REVIEWED: Not Applicable RADIOLOGY DEPARTMENT: General X-ray: Exam(s) Completed: Lower Extremity X-Ray(s): Knee, AP / Lat / Merchant Left and Wt. Bearing PERIPHERAL IV DATA: Not applicable SIGNED BY: RT Rakesh(R) January 27, 2021 10:46 AM [facility] 12-28-2020 Note HNO ID: [id number] Author: Lauire Sotomayor APRN.WEIGHTER Service: Hospital Medicine Author Type: Nurse Practitioner Type: Progress Notes Filed: 12/28/2020 12:55 PM Note Text: ORTHOPAEDIC POSTOP PROGRESS NOTE SERVICE DATE: 12/28/2020 SERVICE TIME: 12:54 PM Subjective Abdifatah Macario is POD1 from Status post total knee replacement, left. Patient states they are comfortable and were able to obtain rest overnight. Surgical site pain is controlled and they report mild incisional pain. Patient has ambulated with assistance. Patient denies any chest pain or calf pain. Patient has urinated, has passed gas, and has not had a bowel movement. They report they are ready and willing to go Home, with home health. Objective VITAL SIGNS: BP 124/60 Pulse 71 Temp 36.6 ?C (97.9 ?F) (Oral) Resp 16 Ht 172.7 cm (5' 8 ) Wt 104.3 kg (230 lb) SpO2 95% BMI 34.97 kg/m? INTAKE AND OUTPUT: Intake/Output Summary (Last 24 hours) at 12/28/2020 1254 Last data filed at 12/28/2020 1228 Gross per 24 hour Intake 2700 ml Output 1075 ml Net 1625 ml PHYSICAL EXAMINATION: Left Lower Extremity: Dorsalis pedis pulses palpable. Posterior tibial pulses palpable. Dorsi flexion 5/5. Plantar flexion 5/5. Extensor hallucis extension: 5/5. Sensory intact to light touch L1-S1. Dressing clean, dry and intact. Surgical site has no drainage and Mepilex intact. Problem Review and Assessment: Patient monitored, no new events overnight. LABS: Recent Labs 12/28/20 0547 HB 10.7* HCT 32.9* DATA: Diagnostic tests reviewed for today's visit: Most recent labs Assessment/Plan S/P Procedure(s) (LRB): ARTHROPLASTY REPLACE JOINT TOTAL KNEE (Left) on 12/27/2020 POSTOP PLAN: Physical Therapy evaluation Pain control Case Management for discharge planning DVT prophylaxis: Patient home with aspirin, additional anticoagulant is contraindicated due to bleeding risk and Graduated compression stockings (GCS) Abdifatah Macario has been under my care as an inpatient for acute pain. An OARRS report for this patient has been reviewed during the inpatient hospital stay. The diagnosis requiring narcotic pain medication is Primary osteoarthritis of left knee [M17.12]. Patient will require an opioid prescription at discharge that will exceed 30 MED and/or 7 days because: Trials of non-opiate alternatives have not provided adequate analgesia. Yes The patient's current condition has required opioid dosing as an inpatient beyond 30 MED to provide adequate analgesia. Yes The patient has a pre-existing chronic pain or chronic opioid use history that necessitates doses beyond the 30 MED limit. No The patient's pain is expected to be severe and persistent enough to require opioid prescription beyond the 7-day recommended limit. Yes This patient will follow up with Dr. Garcia as an outpatient for further evaluation and treatment. 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 Breast Cancer in Male (Hcc) Essential Hypertension Hyperlipidemia Patent Foramen Ovale Class 2 Obesity Due to Excess Calories With Body Mass Index (Bmi) of 35.0 to 35.9 in Adult Status Post Total Right Knee Replacement Primary Osteoarthritis of Left Knee Heart Murmur Bph (Benign Prostatic Hyperplasia) Anemia Bilateral Leg Edema Prediabetes Status Post Total Knee Replacement, Left Medication and Non-Pharmacologic VTE Prophylaxis/Anticoagulants Anticoagulant AND Antiplatelet Medications (From admission, onward) Start Dose Route Frequency Last Action Ordered Stop 12/28/20658 aspirin, enteric coated 81 mg tab(s) (Surgical Risk Categories) 81 mg ORAL 2 TIMES DAILY Given, 12/29 81912/28/2059 -- 12/27/201944 pneumatic compression stockings ([place]) 12/27/201944 activity - mobilize patient ([place] VTE Prophylaxis: VTE prophylaxis appropriate POST OPERATIVE COMPLICATIONS: Complicated by: uneventful/none SIGNATURE: Laurie Sotomayor, MSN, CABLE TELEVISION INSTALLER, CONFIGURATION MANAGEMENT CONSULTANT-C PATIENT NAME: Abdifatah Macario DATE: December 28, 2020 TIME: 12:55 PM PAGER: [phone] [facility] 12-27-2020 Note HNO ID: [id number] Author: Megha Tavarez MD Service: Anesthesiology Author Type: Anesthesiologist Type: Anesthesia Procedure Notes Filed: 12/27/2020 3:03 PM Note Text: ANESTHESIOLOGY PROCEDURE NOTE Spinal Block General Information Procedure Start Time/Medication Administration: 12/27/2020 3:01 PM Patient location during procedure: induction room Timeout Performed Pre-procedure: timeout performed Consent Obtained: Yes Patient identity confirmed: arm band and patient Reason for Block: primary surgical anesthetic Staffing Anesthesiologist: Megha Tavarez MD WATERPROOF COATING MACHINE TENDER: Mary Lakhani APRN.WATERPROOF COATING MACHINE TENDER Performed by: anesthesiologist Preparation Sterility Preparation: hand hygiene performed prior to procedure, surgical cap used, mask used, sterile drape used during line insertion, skin prep agent completely dried prior to procedure Site Prep: Duraprep Procedure Details Patient Position: sitting Ultrasound Guided: No Monitoring: Pulse Ox, EKG and NIBP Approach: Midline Needle Needle Type: pencil-tip Needle Gauge: 25 G Needle Length: 3.5 in Assessment Events: tolerated well Medications Administered Bupivacaine-dextrose 0.75 % (7.5 mg/mL) injection (SENSORCAINE MPF SPINAL), 2 mL midazolam (PF) injection (VERSED), 2 mg SIGNATURE: Megha Tavarez MD PATIENT NAME: Abdifatah Macario DATE: December 27, 2020 TIME: 2:58 PM CSN: [id number] [facility] 12-27-2020 Note HNO ID: [id number] Author: Megha Tavarez MD Service: Anesthesiology Author Type: Anesthesiologist Type: Anesthesia Procedure Notes Filed: 12/27/2020 2:58 PM Note Text: ANESTHESIOLOGY PROCEDURE NOTE Peripheral Nerve Block General Information Procedure Start Time/Medication Administration: 12/27/2020 1:59 PM Procedure End time: 12/27/2020 2:06 PM Patient location during procedure: pre-op Timeout Performed Pre-procedure: timeout performed Consent Obtained: Yes Patient identity confirmed: arm band Reason for block: post-op pain management/at surgeon's request Staffing Anesthesiologist: Megha Tavarez MD Resident: Cholo Gee MD Preparation Sterility Preparation: hand hygiene performed prior to procedure, surgical cap used, mask used, sterile drape used during line insertion, skin prep agent completely dried prior to procedure Site Prep: Chloraprep Pre-Procedure Neuro Exam Location: LLE Sensory: intact Motor: intact Procedure Details Patient Position: supine Monitoring: Pulse OX, EKG and NIBP Block Type Lower Extremity: distal femoral (adductor canal) Laterality: left Injection Technique: single-shot Ultrasound Guided: Yes Image in Chart: yes Local Infiltration: Yes Needle Needle Gauge: 21 G Needle Length: 83 mm Needle Localization: ultrasound Assessment Injection assessment: negative aspiration, no paresthesia on injection, incremental injection and local visualized surrounding nerve on ultrasound Post-Procedure Neuro Exam Expected Regional Anesthesia: Yes Medications Administered Dexamethasone sodium phosphate injection (DECADRON), 4 mg ropivacaine (PF) 5 mg/mL (0.5 %) injection (NAROPIN), 20 mL midazolam (PF) injection (VERSED), 2 mg SIGNATURE: Megha Tavarez MD PATIENT NAME: Abdifatah Macario DATE: December 27, 2020 TIME: 2:10 PM CSN: [id number] [facility] 11-10-2020 Note HNO ID: [id number] Author: Crystal Albright RN Service: ? Author Type: Registered Nurse Type: Nursing Progress Note Filed: 11/10/2020 8:40 AM Note Text: Patient states readiness for discharge. Assisted with dressing Dr Warner at bedside [facility] 10-13-2020 Note HNO ID: [id number] Author: Deandre Garcia MD Service: ? Author Type: Physician Type: Progress Notes Filed: 10/21/2020 10:49 AM Note Text: Established Patient Ortho Knee Consult Note ASSESSMENT AND PLAN Impression: Left Knee Severe Degenerative Osteoarthritis, Primary Abdifatah Macario has radiograph and physical exam evidence of degenerative joint disease and wishes to pursue surgery. This patient appears to have sufficient symptoms to warrant surgical intervention and is an appropriate candidate for left Primary Total Knee Arthroplasty as evidenced by six months of unsuccessful non-operative treatment as outlined in the HPI below and progressive symptoms. Progressive Symptoms Include: Pain impacting sleep or causing fatigue Pain impacting work Pain limiting ability to stay fit and healthy. We had a lengthy discussion regarding the risk and benefit of surgery, the alternatives, limitations and personnel involved. These included but were not limited to infection, persistent pain, instability, nerve injury, blood clots, and medical complications. We also discussed the pre-operative course, surgery itself and rehabilitation. Carmencita-operative blood management and transfusion issues were discussed, and options clearly outlined. The patient has consented to the use of the banked allogenic blood if medically necessary. The patient has elected to schedule surgery at this time or intends to call the office with a surgical date. Shared decision making occurred while obtaining informed consent. The patient will be scheduled for a pre-operative education class at which time they will have their nasal swab completed and will be given CHG cloths along with the verbal and written instructions for their use. Patient has been instructed and has been scheduled or will call to schedule attendence in one of the total joint perioperative classes offered prior to proceeding with TKA. The patient has been ordered: No orders placed today. CONSULTS: IMPACT/PACE Consult for preoperative clearance. SUBJECTIVE CHIEF COMPLAINT: Knee Pain (see [facility] note dated 11-12-19). HPI: Abdifatah Macario is a 70 year old patient here for evaluation and management of left knee pain. His last cortisone injection was in January of 2020. This last injection did not provide him with adequate symptom relief. He would like to scheduled LTKA in December of this year. PHYSICAL EXAM: There were no vitals taken for this visit. All other systems deferred. GENERAL: Appears healthy, well-nourished, no deformities. HABITUS: Normal GAIT: Antalgic to the left KNEE EXAM: Left: Alignment: Varus deformity, Partially Correctable Range of motion is 5 degrees in extension and 120 degrees of flexion. Extension La degrees Pain with ROM: Yes Effusion: None Tender to the palpation of Medial femoral condyle and Medial joint line Pain with patellar compression: Yes Stability: Anterior/Posterior stable and Varus/Valgus stable Hip Exam: flexion to 100+ degrees, full extension, internal/external rotation adequate and no pain with log roll Neurovascular Status: Sensation Intact and Moves foot and ankle up AND down DATA: Diagnostic tests reviewed for today's visit: Left knee X-Ray: Medial joint space noted to have severe degenerative changes and Patellofemoral joint noted to have mild degenerative changes SIGNATURE: Deandre Garcia MD PATIENT NAME: Abdifatah Macario DATE: October 13, 2020 TIME: 1:21 PM I personally evaluated this patient and agree with the note from the nurse/resident/fellow including PMH, PSH, SH, meds, allergies, and review of systems. I completed the HPI and performed the physical exam. Additionally I reviewed available imaging and wrote my interpretation. I wrote the Assessment and Plan. [facility] 10-13-2020 Note HNO ID: [id number] Author: RT Lamine(R) Service: ? Author Type: Conformal Pad Former Type: Progress Notes Filed: 10/13/2020 1:11 PM Note Text: Radiology Service Progress Note PATIENT NAME: Abdifatah Macario DATE OF SERVICE: October 13, 2020 TIME: 1:10 PM PATIENT IDENTITY VERIFICATION COMPLETED USING TWO (2) IDENTIFIERS: Name and Date of confirmed by patient verbally. FALL SCREENING: Has the patient had 2 falls in the last year or 1 fall with injury or currently using an Ambulatory Assistive Device (Walker, Cane, Wheelchair, Crutches, etc.)? No PATIENT GENDER DATA: Male PATIENT RELEVANT IMPLANT DATA REVIEWED: Not Applicable RADIOLOGY DEPARTMENT: General X-ray: Exam(s) Completed: Lower Extremity X-Ray(s): Knee, AP / Lat / Tunne / Merchant Left PERIPHERAL IV DATA: Not applicable SIGNED BY: Calixto Henriquez, RT(R) October 13, 2020 1:10 PM [facility] 08-18-2020 Note HNO ID: [id number] Author: Tangela Hdez RN Service: ? Author Type: Registered Nurse Type: Nursing Progress Note Filed: 08/18/2020 9:55 AM Note Text: Dr at bedside. No questions. [facility] 08-18-2020 Note HNO ID: [id number] Author: Tangela Hdez RN Service: ? Author Type: Registered Nurse Type: Nursing Progress Note Filed: 08/18/2020 9:26 AM Note Text: Assisted pt w/dressing. Director Of Instructional Technology 15 minutes away. [facility] 07-22-2020 Note HNO ID: [id number] Author: Yvon Warner MD Service: ? Author Type: Physician Type: Progress Notes Filed: 07/22/2020 2:28 PM Note Text: CHIEF COMPLAINT: Patient presents with: Anemia: Nausea-labs/referral to scanning HPI: Abdifatah Macario is a 69 year old male who presents for Anemia (Nausea-labs/referral to scanning ). In March had right knee replacement, was also low dose NSAID. Nausea without vomiting. Bloating and pressure of abdomen, no abdominal pain. Some constipation, no melena. No weight changes Record Review: [facility] / Outside records reviewed. PAST MEDICAL HISTORY Diagnosis Date - Casarez's esophagus - Breast cancer (HCC) - Diverticulosis - Hiatal hernia - HTN (hypertension) - Mixed hyperlipidemia PAST SURGICAL HISTORY Procedure Laterality Date - ANKLE SURGERY HX Left 07/1999 removal of hardware - COLONOSCOPY GEN ANES 09/18/2012 Diverticulosis - EGD 12/29/2015 Casarez's Esophagus, Hiatal Hernia, Mild chronic gastritis, mildly active - KNEE ARTHROSCOPY/SURGERY Right 2015 - OPEN RX ANKLE DISLOCATN+FIXATN Left 1998 - REPAIR UMBILICAL HERNIA 2012 Allergies: ALLERGIES No Known Allergies Medications: pantoprazole DR (PROTONIX) 40 mg tablet enalapril (VASOTEC) 5 mg tablet ondansetron (ZOFRAN) 4 mg tablet HYDROcodone-acetaminophen (NORCO) 5-325 mg per tablet Take 1 tablet by mouth every 8 hours as needed for pain. metaxalone (SKELAXIN) 800 mg tablet Take 800 mg by mouth twice daily as needed for Pain. furosemide (LASIX) 20 mg tablet Take 20 mg by mouth twice daily. rosuvastatin (CRESTOR) 20 mg tablet Take 20 mg by mouth daily at bedtime. potassium chloride SR (MICRO-K) 10 mEq CR capsule Take 10 mEq by mouth twice daily. Ipratropium Justin (ATROVENT) 0.03 % nasal spray Use 2 Sprays in the nose every 12 hours. amoxicillin (POLYMOX, AMOXIL) 500 mg capsule Please take 4 pills by mouth 1 hour prior to dental appointment FAMILY HISTORY Problem Relation Age of Onset - Colon Cancer No Family History Employer And Job Title: None on file Years Of Education Completed: Not specified Marital Status: Social History Tobacco Use - Smoking status: Never Smoker - Smokeless tobacco: Never Used Vaping Use - Vaping Use: Never used Substance Use Topics - Alcohol use: Yes Comment: Rarely - Drug use: Never Review of Systems: Review of Systems Constitutional: Positive for fatigue. Gastrointestinal: Positive for abdominal distention and nausea. Change in Bowel Habits All other systems reviewed and are negative. Are you taking any blood thinners? No Physical Examination: BP 146/82 Pulse 79 Ht 5' 8 (1.73m) Wt 231 lb (104.8kg) BMI 35.13 kg/(m2). Physical Exam HENT: Head: Normocephalic and atraumatic. Eyes: General: No scleral icterus. Conjunctiva/sclera: Conjunctivae normal. Cardiovascular: Rate and Rhythm: Normal rate and regular rhythm. Heart sounds: Normal heart sounds. Pulmonary: Effort: Pulmonary effort is normal. Breath sounds: Normal breath sounds. Abdominal: General: Bowel sounds are normal. Palpations: Abdomen is soft. Musculoskeletal: Cervical back: Neck supple. Skin: General: Skin is warm and dry. Neurological: Mental Status: He is alert and oriented to person, place, and time. Psychiatric: Judgment: Judgment normal. ASSESSMENT: Nausea (primary encounter diagnosis) Other iron deficiency anemia Casarez's esophagus without dysplasia History of colonic polyps PLAN: Office Visit on 07/22/20 - EGD with Casarez's biopsy continue PPI, will consider carafate if bleeding lesion is noted Will also need colonoscopy later No follow-ups on file. Yvon Warner MD DATE: 07/22/20 TIME: 2:10 PM [facility] 07-05-2020 Note HNO ID: [id number] Author: Deandre Garcia MD Service: ? Author Type: Physician Type: Progress Notes Filed: 07/05/2020 2:49 PM Note Text: Ortho Knee Follow Up Note Narrative Referring Provider: SELF PCP: Danial Berkowitz MD IMPRESSION/PLAN: 69 year old s/p Right Total Knee Replacement completed on 03/15/2020. IMPRESSION: At normal post-operative stage of recovery. PLAN: No new treatment indicated: Routine follow-up with x-rays. Patient Reassurance: Progress appears to be with the normal speed of recovery. Patient reassured and supported. All questions answered. 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 Post-operative recovery was complicated by uneventful/none. EXAM: POST OP KNEE Right Post-Operative Knee Ambulates with a normal gait. SKIN: Incision well healed. Range of motion is lacking a few degrees secondary to tight hamstrings degrees in extension and 120 degrees of flexion. Extension La degrees Pain with ROM: No There is Slight effusion. Mal-alignment: No Tender to the palpation of Medial femoral condyle and Lateral femoral condyle Neurovascular Status: Sensation Intact and Moves foot and ankle up AND down Stability:Anterior/Posterior- Yes, stable and Varus/Valgus- Yes, stable Quad strength: normal Imagin. None today. Provider: Deandre Garcia MD Completed by: Deandre Garcia MD [facility] 03-16-2020 Note HNO ID: [id number] Author: Ada Crockett (Sw) Service: Care Management Author Type: Veterinary Milk Specialist Type: Care Mgt Progress Note Filed: 03/16/2020 10:56 AM Note Text: CARE MANAGEMENT DISCHARGE NOTE SERVICE DATE: 03/16/2020 SERVICE TIME: 10:54 am LOS: 0 days Admission Date: 03/15/2020 DISCHARGE ARRANGEMENT (list agency and phone number) Discharge Arrangement: Other: See Comment(Out-patient therapy) Provider Name: n/a Phone: n/a CAREGIVER ASSESSMENT: Caregiver is ready, willing and able to meet the patient's needs as recommended by the inter-professional team:: Yes Does the patient have an acute stroke diagnosis, or has the patient had a stroke during this admission?: No Patient's transition needs and plan for meeting these needs: Home with out-patient therapy HANDOFF COMMUNICATION: Handoff to: Primary Care Physician Primary Care Physician Name/Phone: via PT [place] [facility] TRANSPORTATION ARRANGEMENTS: Transportation Arrangements: Car ADDITIONAL CONTACT RESOURCES: none Caregiver is ready, willing and able to meet the patient's needs as recommended by the inter-professional team:: Yes Does the patient have an acute stroke diagnosis, or has the patient had a stroke during this admission?: No Needs Prior to Discharge: Ready for Discharge Transportation Arrangements: Car Pt is ready for discharge. Pt declined C and is opting for out-patient therapy. Pts will be transporting pt home. SW will remain available. SIGNATURE: ALEX Gutierrez PATIENT NAME: Abdifatah Macario DATE: March 16, 2020 TIME: 10:53 AM PAGER/CONTACT #: [phone] [facility] 03-16-2020 Note HNO ID: [id number] Author: Antwan Chow (Pa) Service: Orthopaedic Surgery Author Type: Physician Dean Of Men Type: Progress Notes Filed: 03/16/2020 10:17 AM Note Text: ORTHOPAEDIC POSTOP PROGRESS NOTE SERVICE DATE: 03/16/2020 SERVICE TIME: 10:17 AM Subjective Patient states that they are comfortable Well Controlled knee(s) pain. Denies incisional pain. Objective VITAL SIGNS: BP 126/63 Pulse 74 Temp 36.9 ?C (98.4 ?F) (Oral) Resp 16 Ht 172.7 cm (5' 8 ) Wt 104.8 kg (231 lb) SpO2 93% BMI 35.12 kg/m? INTAKE AND OUTPUT: Intake/Output Summary (Last 24 hours) at 03/16/2020 1016 Last data filed at 03/16/2020 0900 Gross per 24 hour Intake 2815 ml Output 900 ml Net 1915 ml PHYSICAL EXAMINATION: Right Lower Extremity: Dorsalis pedis pulses palpable. Posterior tibial pulses palpable. Dorsi flexion 5/5. Plantar flexion 5/5. Extensor hallucis extension: 5/5. Sensory intact to light touch L1-S1. Dressing clean, dry and intact. Surgical site no drainage. Problem Review and Assessment: Patient monitored, no new events overnight. LABS: Recent Labs 03/16/20 0543 HB 11.9* HCT 37.0* DATA: Diagnostic tests reviewed for today's visit: Most recent labs and imaging results. 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 Breast Cancer in Male (Hcc) Essential Hypertension Hyperlipidemia Patent Foramen Ovale Class 2 Obesity Due to Excess Calories With Body Mass Index (Bmi) of 35.0 to 35.9 in Adult Primary Osteoarthritis of Right Knee Status Post Total Right Knee Replacement Medication and Non-Pharmacologic VTE Prophylaxis/Anticoagulants Anticoagulant AND Antiplatelet Medications (From admission, onward) Start Dose Route Frequency Ordered Stop 03/16/20 0900 aspirin, enteric coated 81 mg tab(s) (Surgical Risk Categories ) 81 mg ORAL 2 TIMES DAILY 03/15/20 1424 -- 03/15/20 1430 graduated compression stockings (fl,oh) VTE Prophylaxis: VTE prophylaxis appropriate POST OPERATIVE COMPLICATIONS: Complicated by: uneventful/none SIGNATURE: Antwan Chow PA-C PATIENT NAME: Abdifatah Macario DATE: 03/16/2020 TIME: 10:17 AM PAGER/CONTACT #: [phone] [facility] 03-15-2020 Note HNO ID: [id number] Author: Ada Crockett (Sw) Service: Care Management Author Type: Veterinary Milk Specialist Type: Care Mgt Initial Assessment Filed: 03/15/2020 3:23 PM Note Text: CARE MANAGEMENT PROGRESS NOTE SERVICE DATE: 03/15/2020 SERVICE TIME: 3:21 pm LOS: 0 days [place] of Choice Given: No Reason Not Given: No placements necessary Caregiver is ready, willing and able to meet the patient's needs as recommended by the inter-professional team:: Yes Does the patient have an acute stroke diagnosis, or has the patient had a stroke during this admission?: No Needs Prior to Discharge: To Be Determined Current Advance Directive: Health Care Power of Surveyor Rod Helper;Living Will In Chart: No C2 Tactical Analysis Technician Attempted to Assist with AD Completion: Yes DAV met with pt at bedside. Pt is here for a right knee replacement. Pt lives at home with his . Pt sts that he has a cane, crutches and a walker. DAV talked to pt about HHC and pt declined stating that he is going to out-patient therapy and it is arranged. Pt to be seen by PT/OT, DAV will await their recommendations. DAV will remain available. SIGNATURE: ALEX Gutierrez PATIENT NAME: Abdifatah Macario DATE: March 15, 2020 TIME: 3:21 PM PAGER/CONTACT #: [phone] [facility] 03-15-2020 Note HNO ID: [id number] Author: Karina Chou (Aa) Service: ? Author Type: Brim Shaper Type: Anesthesia Procedure Notes Filed: 03/15/2020 11:28 AM Note Text: ANESTHESIOLOGY PROCEDURE NOTE Spinal Block General Information Procedure Start Time/Medication Administration: 03/15/2020 11:05 AM Patient location during procedure: OR Patient identity confirmed: arm band Reason for Block: primary surgical anesthetic Staffing CAA: Karina Chou (Aa) Performed by: MICHAEL Preparation Sterility Preparation: hand hygiene performed prior to procedure, surgical cap used, mask used, sterile drape used during line insertion, skin prep agent completely dried prior to procedure Site Prep: Chloraprep Procedure Details Patient Position: sitting Monitoring: Pulse Ox and NIBP Approach: Midline Location: L4-5 Injection Technique: single-shot Needle Needle Type: Tuohy Needle Gauge: 22 G Needle Length: 3.5 in Assessment Events: tolerated well SIGNATURE: MONICA Norris PATIENT NAME: Abdifatah Macario DATE: March 15, 2020 TIME: 11:27 AM CSN: [id number] [facility] 03-15-2020 Note HNO ID: [id number] Author: Alberto Dowell Service: ? 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 Reason for block: post-op pain management/at surgeon's request Staffing Anesthesiologist: Alberto Dowell Resident: Sarbjit Moore DO Performed by: anesthesiologist and resident Preparation Sterility Preparation: hand hygiene performed prior to procedure, surgical cap used, mask used, sterile drape used during line insertion, skin prep agent completely dried prior to procedure Site Prep: Chloraprep Procedure Details Patient Position: supine Monitoring: Pulse OX, EKG and NIBP Block Type Lower Extremity: saphenous Laterality: right Injection Technique: single-shot Ultrasound Guided: Yes Image in Chart: yes Local Infiltration: Yes Needle Needle Type: echogenic Needle Gauge: 21 G Needle Length: 100 mm Needle Localization: ultrasound Assessment Injection assessment: negative aspiration, no paresthesia on injection, incremental injection and local visualized surrounding nerve on ultrasound Medications Administered Dexamethasone sodium phosphate injection (DECADRON), 4 mg midazolam (PF) injection (VERSED), 2 mg ropivacaine (PF) 5 mg/mL (0.5 %) injection (NAROPIN), 20 mL SIGNATURE: Sarbjit Moore DO PATIENT NAME: Abdifatah Macario DATE: March 15, 2020 TIME: 11:05 AM CSN: [id number] [facility] documented as of this encounter (statuses as of 05/09/2021) [facility]01-[facility]21 History of Past illness Narrative* Problem Noted Date Resolved Date Primary osteoarthritis of right knee 03/03/2020 12/20/2020 Dermatochalasis of both upper eyelids 04/07/2019 04/07/2019 documented as of this encounter (statuses as of 05/13/2021) [facility] History of Past illness Narrative* Problem Noted Date Resolved Date Primary osteoarthritis of right knee 03/03/2020 12/20/2020 Dermatochalasis of both upper eyelids 04/07/2019 04/07/2019 documented as of this encounter (statuses as of 05/19/2021) [facility] History of Past illness Narrative* Problem Noted Date Resolved Date Primary osteoarthritis of right knee 03/03/2020 12/20/2020 Dermatochalasis of both upper eyelids 04/07/2019 04/07/2019 documented as of this encounter (statuses as of 09/19/2021) [facility] History of Past illness Narrative* Problem Noted Date Diagnosed Date Resolved Date Primary osteoarthritis of right knee 03/03/2020 12/20/2020 Dermatochalasis of both upper eyelids 04/07/2019 04/07/2019 documented as of this encounter (statuses as of 09/14/2022) [facility] History of Past illness Narrative* Problem Noted Date Diagnosed Date Resolved Date Primary osteoarthritis of right knee 03/03/2020 12/20/2020 Dermatochalasis of both upper eyelids 04/07/2019 04/07/2019 documented as of this encounter (statuses as of 11/30/2022) [facility] Diagnosis Nausea Nausea alone documented in this encounter [facility] Work Phone: Evaluation note* Diagnosis S/P total knee replacement, left- Primary [facility] Diagnosis Gastroesophageal reflux disease, unspecified whether esophagitis present Duodenogastric bile reflux Nausea Nausea alone Diverticulosis Diverticulosis of colon (without mention of hemorrhage) Hiatal hernia Diaphragmatic hernia without mention of obstruction or gangrene [facility] Diagnosis Nausea- Primary Nausea alone Pain of upper abdomen Abdominal pain, other specified site [facility] Diagnosis Dyspnea, unspecified documented in this encounter [facility] Work Phone: Evaluation note* Diagnosis Bile acid esophageal reflux Duodenogastric bile reflux [facility] Diagnosis Localized edema Edema Isolated proteinuria Proteinuria 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 documented in this encounter [facility] Work Phone: Evaluation note* Diagnosis Casarez's esophagus without dysplasia- Primary Bile reflux gastritis Other specified gastritis without mention of hemorrhage Bilateral leg edema Edema Muscle spasms of neck Benign prostatic hyperplasia with urinary obstruction Essential hypertension Unspecified essential hypertension Chronic superficial gastritis without bleeding History of breast cancer in male documented in this [facility]* Diagnosis Bile acid esophageal reflux Duodenogastric bile reflux [facility] Diagnosis Situational anxiety- Primary Anxiety Anxiety state, unspecified documented in this encounter [facility]* Diagnosis Anxiety Anxiety state, unspecified [facility] Diagnosis S/P total knee replacement, left [facility] Diagnosis Encounter for Medicare annual wellness exam- Primary Prediabetes Other abnormal glucose Essential hypertension Unspecified essential hypertension [facility]* HISTORY OF PRESENT ILLNESS: * Mr. MACARIO is a 70 year old male with a personal and family history of breast cancer. Mr. MACARIO isinterested in genetic testing to clarify his personal risks for cancer, as well as the risks to hisfamily members. * CANCER MEDICAL HISTORY: * PERSONAL HISTORY OF CANCER? Yes * Type: Breast * Age at diagnosis: 59 * Summary: Mr. Macario was diagnosed with right male breast cancer at age 59 (in 2009) which was grade2. He was treated with a right total mastectomy and found to have a 0.67 mm focus of metastatic cancer in the lymph node biopsy. The tumor was ER/TX +, HER2 -. His surgery was followed by 4 cycles ofchemotherapy (Taxotere and Cytoxan, which ended 04/29/2010), radiation therapy, and the Tamoxifen between 07/2010-05/2018. He was treated at [facility] in [place]. * Mr. Macario had negative genetic testing for the BRCA1/2 genes at [facility] in [place] which we reports came back negative. No copy of the report was able to be obtained for this appointment. * HISTORY OF OTHER CANCERS? No * CANCER SCREENING HISTORY: * Colonoscopy? A total of 3 with his last done in 08/2020. He reports a total of 3 polyps found. * Endoscopy? 01/2021 d/t gastritis and biliary regurgitation * Prostate? Follows regularly, no concerns * Other cancer screening? None * FAMILY HISTORY: * A 4-generation pedigree was obtained and was significant for the following: * Sister (, 40) with breast cancer at 40 * Maternal aunt (, 60s) with two breast primaries diagnosed in her 60s * Maternal aunt (, 71) with breast cancer in her 50s and uterine cancer at 69 * Paternal uncle (, 86) with male breast cancer at an unknown age * Paternal uncle (, 85) with potential prostate cancer at an unknown age * Paternal uncle (, 90) with pancreatic cancer at 89 * Paternal aunt (, 82) with colon cancer at 72 * No relatives have had genetic testing per patient * Mr. MACARIO is of [place], Korean, Albanian, and Croatian descent. There is no known Ashkenazi Christian ancestry. Consanguinity was denied. [employer] Work Phone: History of Present illness NarrativePlease see previous genetics note.[employer] Work Phone: Reason for referral (narrative)* Diagnostic Procedure Only (Routine) - Pending Review Specialty Diagnoses / Procedures Referred By Sudeep dillon Referred To Contact US IMAGING Diagnoses Nausea Pain of upper abdomen Procedures US ABDOMEN LTD US ABDOMINAL REAL TIME W/IMAGE LIMITED Yvon Warner MD [address] [place] [address] Us Imaging Referral ID Status Reason Start Date Expiration Date Visits Requested Visits Authorized [id number] Pending Review Auto-Generat ed Referral 05/19/2021 06/18/[address] [facility] for referral (narrative)* Consultation (Routine) - Pending Review Specialty Diagnoses / Procedures Referred By Sudeep dillon Referred To Contact Gastroenterology Diagnoses Casarez's esophagus without dysplasia Bile reflux gastritis Procedures TX OFFICE/OUTPATIENT [facility] 60-74 MINUTES Danial Berkowitz MD [address] [place] [address] [address] [place] [address] Tristan Miller DO [address] [place] [address] Referral ID Status Reason Start Date Expiration Date Visits Requested Visits Authorized [id number] Pending Review Specialty Services Required 05/26/2022 05/26/2023 1 1 [facility] Advance Directives No Advanced Directives Records FoundDocuments on File Type Date Recorded Patient Director Of Religious Activities Expl anation Advance Directives and Living Will Power of Surveyor Rod Helper Documents on File Type Date Recorded Patient Director Of Religious Activities Expl anation ACP-Advance Directive see ab ove ACP-Power of Surveyor Rod Helper will b ring in next visit 03-14-19_AW Documents on File Type Date Recorded Patient Director Of Religious Activities Expl anation Advance Directive(s) 04/07/2019 6:31 AM Documents on File Type Date Recorded Patient Director Of Religious Activities Expl anation ACP-Advance Directive see ab ove ACP-Power of Surveyor Rod Helper will b ring in next visit 03-14-19_AW Documents on File Type Date Recorded Patient Director Of Religious Activities Expl anation ACP-Advance Directive see ab ove ACP-Power of Surveyor Rod Helper will b ring in next visit 07/30/20- Documents on File Type Date Recorded Patient Director Of Religious Activities Expl anation Advance Directives and Living Will see above Power of Surveyor Rod Helper will bring in next visit 03-14-19_AW Documents on File Type Date Recorded Patient Director Of Religious Activities Expl anation Advance Directive(s) 12/27/2020 2:57 PM Advance Directive(s) 12/06/2020 1:54 PM Advance Directive(s) 08/18/2020 7:43 AM Advance Directive(s) 03/15/2020 7:38 AM Advance Directive(s) 02/19/2020 12:13 PM Advance Directive(s) 04/07/2019 6:31 AM Documents on File Type Date Recorded Patient Director Of Religious Activities Expl anation Advance Directive(s) 12/27/2020 2:57 PM Advance Directive(s) 12/06/2020 1:54 PM Advance Directive(s) 08/18/2020 7:43 AM Advance Directive(s) 03/15/2020 7:38 AM Advance Directive(s) 02/19/2020 12:13 PM Advance Directive(s) 04/07/2019 6:31 AM Summary Purpose Family History No Family History Records FoundNo Family History Records FoundNo Family History Records FoundNo Family History Records FoundNo Family History Records FoundNo Family History Records FoundNo Family History Records FoundNo Family History Records Found History of Past Illness Problem Noted Date Resolved Date Dermatochalasis of both upper eyelids 04/07/2019 04/07/2019 Assessments Diagnosis Left knee pain, unspecified chronicity- Primary Reason for Referral Status Reason Specialty Diagnoses / Procedures Referre d By Contact Referred To Contact Open Radiology Diagnoses Nausea Procedures US ABDOMEN LIMITED Danial Berkowitz MD [address] [place] [address] [place] [address] Specialty Diagnoses / Procedures Referred By Contac t Referred To Contact Radiology Diagnoses 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 Localized edema Procedures US Renal Limited Danial Berkowitz MD [address] [place] [address] [place] [address] Referral ID Status Reason Start Date Expiration Date Visits Re quested Visits Authorized [id number] Open 09/23/2021 09/23/2022 1 1 Chief Complaint Patient seen for genetic risk assessment regarding a personal and family history of breast cancer.Patient seen for discussion of genetic test results. Additional Source Comments (unrecognized sect ion and content) No Status Records FoundNo Status Records FoundNo Status Records FoundNo Status Records FoundNo Status Records FoundNo Status Records FoundNo Status Records FoundNo Status Records Found INFORMATION SOURCE (unrecogn ized section and content) DATE CREATED AUTHOR AUTHOR'S ORGANIZ ATION 12/30/2020 [facility] DATE CREATED AUTHOR AUTHOR'S ORGANIZ ATION 05/15/2021 [facility] DATE CREATED AUTHOR AUTHOR'S ORGANIZ ATION 06/25/2021 [employer] DATE CREATED AUTHOR AUTHOR'S ORGANIZ ATION 12/08/2021 [facility] DATE CREATED AUTHOR AUTHOR'S ORGANIZ ATION 12/10/2021 [facility] DATE CREATED AUTHOR AUTHOR'S ORGANIZ ATION 12/06/2022 [facility] DATE CREATED AUTHOR AUTHOR'S ROSEANNE WALDROP 02/03/2023 [facility] Source Comments (unrecognize d section and content) In the event this informatio n is protected by the Federal Confidentiality of Alcohol and Drug Abuse Patient Records regulations: The Federal rules restrict any use of the information to criminally investigate or prosecute any alcohol or drug abuse patient.[facility] the event this information is protected by the Federal Confidentiality of Alcohol and Drug Abuse Patient Records regulations: The Federal rules restrict any use of the information to criminally investigate or prosecute any alcohol or drug abuse patient.[facility] the event this information is protected by the Federal Confidentiality of Alcohol and Drug Abuse Patient Records regulations: The Federal rules restrict any use of the information to criminally investigate or prosecute any alcohol or drug abuse patient.[facility] the event this information is protected by the Federal Confidentiality of Alcohol and Drug Abuse Patient Records regulations: The Federal rules restrict any use of the information to criminally investigate or prosecute any alcohol or drug abuse patient.[facility] the event this information is protected by the Federal Confidentiality of Alcohol and Drug Abuse Patient Records regulations: The Federal rules restrict any use of the information to criminally investigate or prosecute any alcohol or drug abuse patient.[facility] the event this information is protected by the Federal Confidentiality of Alcohol and Drug Abuse Patient Records regulations: The Federal rules restrict any use of the information to criminally investigate or prosecute any alcohol or drug abuse patient.[facility] the event this information is protected by the Federal Confidentiality of Alcohol and Drug Abuse Patient Records regulations: The Federal rules restrict any use of the information to criminally investigate or prosecute any alcohol or drug abuse patient.[facility] Reason for Visit (unrecogniz ed section and content) Reason Comments Nausea Colon 11/10/20 labs 1 02/28/20 Reason Comments Refill Request Reason Comments Follow-up Seen by Renal doctor Med Refill Reason Comments Med Refill Reason Comments Anxiety Reason Comments Follow-up Anxiety Reason Comments Medicare Annual Wellness Visit [facility] Care Teams (unrecognized sec tion and content) 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 Start Date End Date Danial Berkowitz MD [address] [id number] PCP - General Family Practice 04/07/19 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 Start Date End Date Danial Berkowitz MD [address] [address] PCP - General Family Practice 04/07/19 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 Start Date End Date Danial Berkowitz MD [address] [id number] PCP - General 07/23/14 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 Start Date End Date Danial Berkowitz MD [address] [address] PCP - General 07/23/14 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 Start Date End Date Danial Berkowitz MD [address] [address] PCP - General Family Practice 04/07/19 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 Start Date End Date Danial Berkowitz MD [address] [address] PCP - General 07/23/14 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 Start Date End Date Danial Berkowitz MD [address] [address] PCP - General 07/23/14 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 Start Date End Date Danial Berkowitz MD [address] [address] PCP - General 07/23/14 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 Start Date End Date Danial Berkowitz MD [address] [address] PCP - General 07/23/14 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 Start Date End Date Danial Berkowitz MD [address] [address] PCP - General 07/23/14 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 Start Date End Date Danial Berkowitz MD [address] [address] PCP - General Family Medicine 04/07/19 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 Start Date End Date Danial Berkowitz MD [address] [address] PCP - General 07/23/14 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 Start Date End Date Danial Berkowitz MD [address] [address] PCP - General 07/23/14 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 Start Date End Date Danial Berkowitz MD [address] [address] PCP - General 07/23/14 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 Start Date End Date Danial Berkowitz MD [address] [address] PCP - General 07/23/14 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 Start Date End Date Danial Berkowitz MD [address] [address] PCP - General 07/23/14 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 This clinical summary was aggregated from multiple sources. Caution should be exercised in using it in the provision of clinical care. This summary normalizes information from multiple sources, and as a consequence, information in this document may materially change the coding, format and clinical context of patient data. In addition, data may be omitted in some cases. CLINICAL DECISIONS SHOULD BE BASED ON THE PRIMARY CLINICAL RECORDS. [facility] [employer] [facility]. provides no warranty or guarantee of the accuracy or completeness of information in this document.
--- NOTE | 2023-02-15 12:57 | STRESSREP ---
Stress Test Report Exercise myocardial perfusion stress test. 72-year-old male with a history of abnormal calcium score Stress protocol: Resting EKG demonstrates normal sinus rhythm with a rate of 62 bpm resting blood pressure is 144/88 mmHg. The patient exercised according to the regular John protocol for a total duration of 6 minutes attaining a maximum heart rate of 133 bpm which was 89% of maximum predicted heart rate; the maximum workload was 7 METS metabolic equivalents. At rest there were no ST or T wave changes noted to suggest ischemia and at peak exercise upsloping ST changes only were noted which did not meet the criteria for ischemia. No clinical angina was noted the test was terminated due to the target heart rate being achieved/fatigue. The peak blood pressure was 168/82 mmHg. Rate-pressure product was 20,400. Myocardial perfusion protocol. 14.2 mCi of technetium 99m sestamibi was injected at rest. The patient exercised according to regular John protocol for total duration of 6 minutes and at peak exercise 44.4 mCi of technetium 99m sestamibi was injected stress images were obtained stress and rest images were reconstructed in comparing the short axis vertical long and horizontal long axis. Gated images were also obtained. Perfusion SPECT analysis: Review of the stress images demonstrate normal uptake of tracer noted in all areas of the myocardium. The resting images similarly demonstrate normal uptake of tracer noted in all areas of the myocardium. No areas of reversibility are noted to suggest ischemia no previous infarct was noted. Gated SPECT analysis: The gated ejection fraction is 65%. Conclusion: Normal exercise myocardial perfusion stress test at a moderate workload Preserved ejection fraction.
== END | disposition home or self-care (01) ==
LOC: CVS 06:18
PROVIDERS: Referring Provider Physician Assistant Medical; Visit Provider Physician Assistant Medical
DX: R94.31 Abnormal electrocardiogram [ECG] [EKG] (principal); R93.1 Abnormal findings on diagnostic imaging of heart and coronary circulation; I10 Essential (primary) hypertension; E78.5 Hyperlipidemia, unspecified
CPT/HCPCS: 78452; 93017; A9500; A4216

== ENCOUNTER → 2023-11-01 | Outpatient (CLI) | payer MEDICARE, SELFPAY ==
--- NOTE | 2023-11-01 10:59 | RAD_ITS ---
STUDY: X-RAY CHEST REASON FOR EXAM: Male, 73 years old. SOB TECHNIQUE: Frontal and lateral views of the chest. COMPARISON: 11/18/2023. FINDINGS: The lungs are clear and expanded. There is no demonstrated pleural abnormality. Normal size heart. Normal mediastinum and tayla. Normal visualized pulmonary arteries. Normal visualized aortic arch and descending thoracic aorta. There are diffuse degenerative changes of the visualized thoracic spine. Normal visualized ribs, clavicles, and shoulders. There is no demonstrated abnormality of the visualized soft tissue structures of the upper abdomen. RAD/Chest PA and Lateral IMPRESSION: No definite acute or significant abnormality seen. Electronically Signed: Roman Hollingsworth MD at 16:24 EDT ,
[2023-11-01 11:39] LABS: Absolute Lymphocyte Count 1.94 X10^3/uL (0.83-4.51); Absolute Neutrophil Count 3.8 X10^3/uL (2.0-7.7); Basophil# 0.05 X10^3/uL; Basophil% 0.8 % (0-1); Eosinophil# 0.15 X10^3/uL; Eosinophils% 2.3 % (0-5); Hematocrit 42.3 % (40-54); Hemoglobin 13.6 g/dL (13.0-16.5); Lymphocyte # 1.94 X10^3/ul (0.83-4.51); Lymphocyte % 30.1 % (19-41); Mean Corp Hgb Conc 32.2 g/dL (32-36); Mean Corpuscular Hgb 28.8 pg (27.0-32.0); Mean Corpuscular Volume 89.4 fL (80-94); Mean Platelet Vol. 9.8 fl (6.2-12.0); Monocyte# 0.51 X10^3/uL; Monocyte% 7.9 % (0-10); NRBC Flagged by Analyzer 0 % (0-5); Neutrophil # 3.78 X10^3/uL (2.7-7.7); Neutrophil % 58.7 % (47-70); Platelet Count 266 K/mm3 (150-450); RBC Distribution Width SD 45.6 fl (35.1-43.9); Red Blood Count 4.73 M/mm3 (4.6-6.2); White Blood Count 6.4 K/mm3 (4.4-11.0)
[2023-11-01 11:55] LABS: International Normalized Ratio 1.1; Prothrombin Time (Protime)PT. 14.1 SECONDS (11.7-14.9)
[2023-11-01 11:56] LABS: Partial Thromboplast Time 27.4 Seconds (24.1-36.2)
[2023-11-01 12:05] LABS: Anion Gap 4 (5-15); BUN 14 mg/dL (7-18); Calcium,Total 9.1 mg/dL (8.5-10.1); Chloride 106 mmol/L (98-107); EST Glomerular Filtration Rate 78 mL/min (>60); Est Glom Filt Rate - Afr Amer 94 mL/min (>60); Glucose 108 mg/dL (74-106); Potassium 3.8 mmol/L (3.5-5.1); Sodium Level 140 mmol/L (136-145)
== END | disposition home or self-care (01) ==
LOC: RAD 10:50
PROVIDERS: Referring Provider Physician Assistant Medical; Visit Provider Physician Assistant Medical
DX: R06.02 Shortness of breath (principal); R07.9 Chest pain, unspecified; R93.1 Abnormal findings on diagnostic imaging of heart and coronary circulation; I10 Essential (primary) hypertension
CPT/HCPCS: 36415; 71046; 80048; 85025; 85610; 85730

== ENCOUNTER 2023-11-28 10:27 | Observation (INO) | payer MEDICARE, SELFPAY ==
[2023-11-27 07:01] VITALS: BMI 35.4
[2023-11-28] VITALS (13 sets, daily range): BP systolic 110–146; BP diastolic 64–91; PULSE 58–72; RESP 10–18; TEMP 36.6; O2SAT 95–100; BMI 35.3
--- NOTE | 2023-11-28 09:21 | CL.D_ITS ---
Patient Name: ABDIFATAH MACARIO Study Date: 11/28/2023 Performing: Addy Pardo MD Ht: 68 inches 172.72 cm : 1950 Wt: 233.01 lbs 105.69 kg Age: 73 Gender: male BSA: 2.18 PROCEDURE(S) PERFORMED DC02-(23348)LHC/COR IC12-(05470/C9600)AIYANA W/WO PTCA, SINGLE CORONARY ARTERY CLINICAL PROFILE AND INDICATIONS Indications: Suspected CAD Heart Failure: None Stress/Imaging Coronary Calcium Score: Yes Calcium Score: 2000Calcium Score: 2000 CAD Presentations: Stable angina. CONCLUSIONS Coronary disease with high-grade right coronary artery lesions. RECOMMENDATIONS Referred for immediate PCI DESCRIPTION OF PROCEDURE The patient arrived to the procedure lab. The risks and benefits of the procedure as well as a full description of our services here and current unavailability of surgical backup were fully explained to the patient and/or their significant other prior to the catheterization. The Timeout was completed, verifying the correct patient and procedure. The patient's procedural site was prepped and draped in the usual fashion. Local anesthetic was given subcutaneously to right radial region with Lidocaine 2%. Using a modified Seldinger technique, arterial access was obtained via the right radial artery, a 6Fr sheath was inserted. Right Coronary Artery selective angiography was then performed in multiple views using a 5 Fr. 4.0 [place] catheter. Left Coronary Artery selective angiography was performed in multiple views using a 5 Fr. 4.0 [place] catheter.The arterial sheath was pulled and a TR Band was applied for hemostasis CORONARY ANGIOGRAPHY DOMINANCE: Right Dominant LEFT HEART ASSESSMENT Left Ventricular Ejection Fraction: by Echo 65 % Normal LV wall motion Normal Left Ventricular systolic function LEFT MAIN: Mild calcification, Mild luminal irregularities LEFT ANTERIOR DESCENDING ARTERY: Moderate calcification, Mild diffuse disease noted in the proximal and mid left anterior descending artery and mild distal disease present. CIRCUMFLEX ARTERY: Mild luminal irregularities less than 30% PROX CIRC: Moderate luminal irregularities up to 50% RAMUS: Mild luminal irregularities RIGHT CORONARY ARTERY: Dominant calcified vessel with the left 80% proximal stenosis and moderate mid segment disease and mild diffuse distal disease COMPLICATIONS No Complications PROCEDURE MEDICATIONS Fentanyl 50 mcg IV Versed 1 mg IV Versed 1 mg IV Versed 1 mg IV Versed 1 mg IV Aspirin (325mg) 1 Tabs PO 11/28/2023 08:28:33 Brilinta 180 mg PO @ 11/28/2023 09:08:40 Heparin given IA 11/28/2023 08:49:43 Heparin 6000 unit(s) IV 11/28/2023 09:46:49 Nitro 200 mcg IC 11/28/2023 09:58:32 Verapamil 2.5mg, Ntg 100mcgs, 3000 units of Heparin given IA 11/28/2023 08:49:43 IV Bolus: .9 NaCl 300 ml total 11/28/2023 10:09:50 SUMMARY OF HEMODYNAMIC DATA Time AIR REST ECG 07:19:37 AO 120/72 (93) SA 08:59:57 Signed By Addy Pardo MD On 01/01/2024 12:41:20 Signed By Addy Pardo MD On 11/28/2023 09:21:02 Addy Pardo MD
[2023-11-28] MEDS: Acetaminophen 325 MG Tablet 650 MG PO (11:48)
--- NOTE | 2023-11-28 11:59 | EKG12_ITS ---
Test Reason : POST PCI Blood Pressure : / mmHG Vent. Rate : 073 BPM Atrial Rate : 073 BPM P-R Int : 216 ms QRS Dur : 102 ms QT Int : 418 ms P-R-T Axes : 020 -10 038 degrees QTc Int : 460 ms Sinus rhythm with 1st degree A-V block with Premature atrial complexes Otherwise normal ECG When compared with ECG of 16-JUL-2014 10:13, Premature atrial complexes are now Present Confirmed by Rambo Bell ([id number]), content editor HANNAH CHAPA ([id number]) on 11/29/2023 10:44:02 AM Referred By: Addy Pardo Confirmed By:Rambo Bell
--- NOTE | 2023-11-28 13:56 | CL.I_ITS ---
Patient Name: ABDIFATAH MACARIO Study Date: 11/28/2023 Performing: Asuncion Stern MD Ht: 68 inches 172.72 cm : 1950 Wt: 233.3 lbs 105.69 kg Age: 73 Gender: male BSA: 2.18 PROCEDURE(S) PERFORMED IC12-(43500/C9600)AIYANA W/WO PTCA, SINGLE CORONARY ARTERY CLINICAL PROFILE AND CO-MORBIDITIES Indications: Suspected CAD Heart Failure: None Stress/Imaging Coronary Calcium Score: Yes Calcium Score: 2000 Calcium Score: 2000 CAD Presentations: Stable angina. CONCLUSIONS Successful AIYANA to pRCA RECOMMENDATIONS DESCRIPTION OF PROCEDURE The patient arrived to the procedure lab. The risks and benefits of the procedure as well as a full description of our services here and current unavailability of surgical backup were fully explained to the patient and/or their significant other prior to the catheterization. The Timeout was completed, verifying the correct patient and procedure. The patient's procedural site was prepped and draped in the usual fashion. Local anesthetic was given subcutaneously to right radial region with Lidocaine 2% Using a modified Seldinger technique,arterial access was obtained via the right radial artery, a 6Fr sheath was inserted. Right Coronary Artery selective angiography was then performed in multiple views using a 5 Fr. 4.0 [place] catheter. Left Coronary Artery selective angiography was performed in multiple views using a 5 Fr. 4.0 [place] catheter. JR4 Guide catheter was inserted and engaged into the RCA. [employer] [place] Guide wire was advanced to the RCA. Emerge 3.50 x 20 Balloon catheter was inserted. Balloon catheter was advanced across lesion in the right coronary, proximal. PTCA balloon inflated at 12 atms for 14 secs. PTCA balloon inflated at 12 atms for 13 secs. PTCA balloon inflated at 12 atms for 8 secs. [place] 4.0 x 38 Drug Eluting stent was inserted. Drug Eluting stent was advanced across the lesion in the right coronary, proximal. Angiogram performed pre stent deployment. Angiogram performed post stent deployment. The arterial sheath was pulled and a TR Band was applied for hemostasis INTERVENTION INFORMATION LESION SITE: RCA (Proximal) Lesion Complexity: High/C, chronic total occlusion: No, lesion at bifurcation: Yes, thrombus present: No, lesion length: 37 mm, culprit lesion: Yes, Previously treated lesion: No Pre Stenosis: 90 % Pre intervention CHAR flow: 3 PROCEDURE: Drug Eluting Stent with pre dilatation. Post Stenosis: 0 % Post intervention CHAR flow: 3 Lesion Devices: [place] .014 190cm BMW [place] Straight Cordis 6 Fr JR4 100cm Guide Catheter Hector Sci EMERGE MR 3.50x20 BALLOON Medtronic 4.0 x 38 HOWARD FRONTIER AIYANA COMPLICATIONS No Complications PROCEDURE MEDICATIONS Fentanyl 50 mcg IV Versed 1 mg IV Versed 1 mg IV Versed 1 mg IV Versed 1 mg IV Aspirin (325mg) 1 Tabs PO 11/28/2023 08:28:33 Brilinta 180 mg PO @ 11/28/2023 09:08:40 Heparin given IA 11/28/2023 08:49:43 Heparin 6000 unit(s) IV 11/28/2023 09:46:49 Nitro 200 mcg IC 11/28/2023 09:58:32 Verapamil 2.5mg, Ntg 100mcgs, 3000 units of Heparin given IA 11/28/2023 08:49:43 IV Bolus: .9 NaCl 300 ml total 11/28/2023 10:09:50 SUMMARY OF HEMODYNAMIC DATA Time AIR REST ECG 07:19:37 AO 120/72 (93) SA 08:59:57 Signed By Asuncion Stern MD On 11/28/2023 13:55:39 Asuncion Stern MD
--- NOTE | 2023-11-28 14:12 | CRPHASE1_ITS ---
Patient Communication Patient Information Former Patient:: Phase I PHII Cardiac Rehab Discussed with Patient:: Yes Guide to Cardiac Rehab Given to Patient:: Yes Cardiac Rehab Facility Choice List Given to Patient:: Yes Communication to Cardiac Rehab [facility]:: [facility] Refer Phase II Cardiac Rehab:: Yes Cardiac Rehabilitation Info Program Information Cardiac Rehabilitation Program Information: Cardiac Rehab The cardiac rehab team at [facility] consists of highly skilled exercise physiologists, nurses, respiratory therapists and physicians working together with you. Our purpose is to help you have a full recovery and achieve the goals you set for yourself. Over the years many of our patients have returned to activities they assumed they would never do again! We can help restore your confidence and motivation to make lifestyle changes that can have a significant impact on your health and quality of life! We can help answer questions and concerns you may have about exercise, lifestyle, medications, diet, stress and anxiety which are common following a hospitalization. WE monitor ECG and vital signs during exercise and discuss your progress with you and report to your physician(s). Cardiac Rehab is proven to help reduce readmissions, improve functional capacity and lower recurrence of problems with your heart. Our Cardiac Rehab program is Certified by the [place] [employer]io-Vascular and Pulmonary Rehabilitation (AACVPR) and Accredited by the [place] [employer] through our [facility]. You can contact us at . We invite you to call us with your qu estions or to get started in our program. If you have other questions or concerns be sure to ask your physician/provider during your follow-up visit. WE look forward to seeing you!
--- NOTE | 2023-11-28 14:13 | CRPH1.INSTRU ---
General Education Discussed with Patient CAD and cardiac anatomy and function:: Patient communicates acknowledgment Explanation of diagnoses and procedures:: Patient communicates acknowledgment Sign/Symptoms of NM:: Patient communicates acknowledgment Antiplatelet therapy: Patient communicates acknowledgment Proper use of NTG-SL: Patient communicates acknowledgment Emergency procedures and activation of EMS: Patient communicates acknowledgment Compliance of all prescribed medications: Patient communicates acknowledgment Smoking Risk Factors Patient Nicotine/Smoking Risk Factors Are:: Non-smoker Recommendations Recommendations Include:: Second-hand smoke recommendation Response Code Nicotine/Smoking Response Code:: Patient communicates acknowledgment Dyslipidemia Recommendations Recommendations Include:: Lipid profile provided Response Code Dyslipidemia Response Code:: Patient communicates acknowledgment Overweight/Obesity Risk Factors Patient Overweight/Obesity Risk Factors Are:: Obesity - > or = 30 Recommendations Recommendations Include:: Weight loss of 5-10%, Reduced calorie diet and Exercise 5-7 times/week Response Code Overweight/Obesity:: Patient communicates acknowledgment Hypertension Recommendations Recommendations Include:: Maintain BP <130/85 Response Code Hypertension:: Patient communicates acknowledgment Heart Disease Response Code Heart Disease Response Code:: Patient communicates acknowledgment Diabetes Risk Factors Patient Diabetes Risk Factors Are:: No documented hx of diabetes Metabolic Syndrome Recommendations Recommendations Include:: Does not meet criteria Sedentary Risk Factors Patient Sedentary Risk Factors Are:: Lack of regular exercise Recommendations Recommendations Include:: Aerobic exercise 5-7 times/week for 20-30 minutes continuously, Benefits of regular exercise, Discussed home walking program and Monitored Outpatient Cardiac Rehab Response Code Sedentary Response Code:: Patient communicates acknowledgment Stress Recommendations Recommendations Include:: Identification of stressors, and assessment of coping skills and Stress management techniques Response Code Stress Response Code:: Patient communicates acknowledgment
[2023-11-28] MEDS: TICAGRELOR 90 MG TABLET PO (21:23)
[2023-11-28] MEDS: Atorvastatin Calcium 80 MG Tablet PO (21:23)
[2023-11-28] MEDS: Metoprolol Tartrate 25 MG Tablet PO (21:23)
[2023-11-29 04:50] VITALS: BP 105/68; PULSE 63; RESP 16; TEMP 36.5; O2SAT 96; BMI 35.2
[2023-11-29 04:52] VITALS: BMI 35.2
[2023-11-29 06:14] LABS: Hematocrit 35.8 % (40-54); Mean Corp Hgb Conc 33.5 g/dL (32-36); Mean Corpuscular Hgb 29.6 pg (27.0-32.0); Mean Corpuscular Volume 88.4 fL (80-94); Mean Platelet Vol. 9.7 fl (6.2-12.0); Platelet Count 271 K/mm3 (150-450); RBC Distribution Width CV 14.2 % (11.6-14.6); RBC Distribution Width SD 45.8 fl (35.1-43.9); Red Blood Count 4.05 M/mm3 (4.6-6.2); White Blood Count 6.9 K/mm3 (4.4-11.0)
[2023-11-29 06:46] LABS: AST(SGOT) 19 U/L (15-37); Alanine Aminotransfer ALT/SGPT 19 U/L (16-61); Alkaline Phosphatase 80 U/L (45-117); Anion Gap 4 (5-15); BUN 15 mg/dL (7-18); BUN/Creat Ratio 15.6 RATIO (10-20); Calcium,Total 8.3 mg/dL (8.5-10.1); Chloride 105 mmol/L (98-107); Creatinine, Serum 0.96 mg/dL (0.70-1.30); EST Glomerular Filtration Rate 81 mL/min (>60); Est Glom Filt Rate - Afr Amer 99 mL/min (>60); Estimated Creatinine Clearance 81.93 ml/min; Globulin 2.9 g/dL (2.2-4.2); Glucose 86 mg/dL (74-106); Potassium 4.1 mmol/L (3.5-5.1); Protein, Total 5.9 g/dL (6.4-8.2); Sodium Level 136 mmol/L (136-145)
--- NOTE | 2023-11-29 09:16 | PN.CARD_ITS ---
Subjective Subjective Patient seen and evaluated. Appears to be doing well. No complaints. Objective Data Vital Signs: Vital Signs Temp Pulse Resp BP Pulse Ox O2 Del Method 97.7 F L 63 16 105/68 96 Room Air 11/29/23 04:50 11/29/23 04:50 11/29/23 04:50 11/29/23 04:50 11/29/23 04:50 11/29/23 04:50 Oxygen Delivery Method Room Air Weight: 232 lb 12.93 oz Body Mass Index (BMI) 35.2 Intake & Output: Intake and Output for Last 24 Hours 11/27/23 11/28/23 11/29/23 23:59 23:59 23:59 Intake Total 500 / 500 Output Total 550 / 550 Balance -50 / -50 Lab / Micro Data 11/29/23 05:25 11/29/23 05:25 Labs: Laboratory Results - last 24 hr 11/29/23 05:25: WBC 6.9, RBC 4.05 L, Hgb 12.0 L, Hct 35.8 L, MCV 88.4, MCH 29.6, MCHC 33.5, RDW Std Deviation 45.8 H, RDW Coeff of Dana 14.2, Plt Count 271, MPV 9.7, Sodium 136, Potassium 4.1, Chloride 105, Carbon Dioxide 27.0, Anion Gap 4 L , BUN 15, Creatinine 0.96, Estim Creat Clear Calc 81.93, Est GFR (MDRD) Af Amer 99, Est GFR (MDRD) Non-Af 81, BUN/Creatinine Ratio 15.6, Glucose 86, Calcium 8.3 L, Total Bilirubin 1.20 H, AST 19, ALT 19, Alkaline Phosphatase 80, Total Protein 5.9 L, Albumin 3.0 L, Globulin 2.9, Albumin/Globulin Ratio 1.0 Cardiology Labs/Tests 11/29/23 05:25: WBC 6.9, RBC 4.05 L, Hgb 12.0 L, Hct 35.8 L, MCV 88.4, MCH 29.6, MCHC 33.5, Plt Count 271, MPV 9.7, Sodium 136, Potassium 4.1, Chloride 105, Carbon Dioxide 27.0, Anion Gap 4 L, BUN 15, Creatinine 0.96, Est GFR (MDRD) Af Amer 99, Est GFR (MDRD) Non-Af 81, BUN/Creatinine Ratio 15.6, Glucose 86, C alcium 8.3 L, Total Bilirubin 1.20 H Rhythm: EKG: ECHO: Stress Test: Cardiac Cath: PCI: CT Surgery: Holter monitor: EPS: PPM: CXR: Chest CT Scan: Physical Exam Const alert, oriented x3 and no apparent distress General Appearance: cooperative HEENT hearing grossly normal bilaterally Head and Scalp: atraumatic Eyes EOMs intact bilaterally Neck General: normal visual inspection Chest inspection of chest normal and palpation of chest normal Resp normal respiratory effort Auscultation: clear to auscultation bilaterally Cardio regular rate, regular rhythm, S1 normal heart sound and S2 normal heart sound Jugular Venous Distention: JVD GI normal to inspection, nondistended, normoactive bowel sounds Extremity normal capillary refill and no pedal edema Peripheral Pulses: Yes pulses 2+ throughout and femoral pulses present Skin no rashes or lesions noted Neuro oriented x3 and CN's II-XII intact bilaterally Psych Appearance: grossly normal and appropriate Assessment & Plan Assessment/Plan (1) History of coronary artery stent placement: PLAN: Patient underwent cardiac catheterization and it demonstrated a high-grade proximal stenosis of the right coronary artery for which she underwent angioplasty and stenting yesterday. Has done well overnight creatinine is noted to be normal. Patient will be discharged for outpatient follow-up.
[2023-11-29 09:51] VITALS: BP 123/67; PULSE 69; RESP 16; TEMP 36.6; O2SAT 94
[2023-11-29] MEDS: Aspirin E.C. 81 MG Tablet PO (09:54)
[2023-11-29 09:55] VITALS: BP 123/67; PULSE 69
[2023-11-29] MEDS: Metoprolol Tartrate 25 MG Tablet PO (09:55)
[2023-11-29] MEDS: TICAGRELOR 90 MG TABLET PO (09:55)
--- NOTE | 2023-11-29 10:00 | EKG12_ITS ---
Test Reason : PCI Blood Pressure : / mmHG Vent. Rate : 064 BPM Atrial Rate : 064 BPM P-R Int : 234 ms QRS Dur : 100 ms QT Int : 408 ms P-R-T Axes : 014 -18 020 degrees QTc Int : 420 ms Sinus rhythm with 1st degree A-V block with Premature atrial complexes Otherwise normal ECG When compared with ECG of 28-NOV-2023 11:59, MANUAL COMPARISON REQUIRED, DATA IS UNCONFIRMED Confirmed by Rambo Bell ([id number]), image editor HANNAH CHAPA ([id number]) on 11/29/2023 10:41:07 AM Referred By: Addy Pardo Confirmed By:Rambo Bell
--- NOTE | 2023-11-29 10:54 | CASEMGMT ---
Patient has order for discharge. Patient is discharging on [facility] [employer] called and copay is $304, savings card applied. RN CM in to discuss needs at discharge with patient and updated regarding copay, advised to follow-up with [employer] digger if it is too expensive. Patient denies needs or help at discharge. Patient and had no further questions or concerns.
--- NOTE | 2023-11-29 11:07 | PCM.DC ---
Discharge Instructions Diet Discharge Diet: No restrictions Activity Discharge Activity: Return to Normal Activity Additional Activity Instructions:: You must have someone drive you home. Do not drive until instructed by your doctor. You must have someone stay with you all night after your test. Rest in bed or on the couch until the next morning. Limit the number of times you go up and down stairs the day of your test. Apply pressure to the puncture site if you sneeze or cough. Dressing / Incision Call your doctor if your incision/area has: Increased Pain/ Swelling, Increased Redness, Foul Smelling Discharge and Swelling at the incision site Call your doctor if you observe: Fever of 101 or Higher Additional Dressing/Incision Instructions:: Keep the dressing (bandage) on until the next morning. You may then shower, but do not take a tub bath for 5 days after your test. It is normal to have some tenderness and discomfort at the puncture site. Sometimes bruising also occurs. However, if pain, numbness, or coldness occurs below the puncture site (in your leg, toes, arms or fingers) call your doctor at once. You may have a small, marble sized knot at the puncture site. This is normal. Do not rub it. It will go away in 4-6 weeks. Bleeding can occur from the area where the puncture was done. Blood may spurt or drip from the site. If blood spurts, apply pressure right away to stop bleeding and call 911. Although rare, bleeding into the tissue (hematoma) can also occur. If this happens, a large, firm area goose egg under the skin will appear. If any of these occur, lie down as flat as you can and have someone apply firm pressure to the cath site with a gauze pad or a clean washcloth for 10-15 minutes. Call 911 or go to the Emergency Department. Follow Up Care Test Results: Test results from this visit will be discussed in further detail at your follow-up appointment, if applicable. Discharge Plan Admission Admit Date/Time: 11/28/23 10:27 Attending Provider: Addy Pardo Primary Care Provider: DANIAL DEMPSEY Discharge Orders/Prescriptions Prescriptions: New aspirin 81 mg Tablet,Delayed Release (Dr/Ec) 81 mg PO DAILY@0800 Qty: 120 2RF aspirin 81 mg Tablet,Delayed Release (Dr/Ec) 81 mg PO BREAKFAST Qty: 90 3RF metoprolol tartrate 25 mg Tablet 25 mg PO BID Qty: 180 3RF Brilinta 90 mg Tablet 90 mg PO BID Qty: 180 3RF Continued pantoprazole 40 mg tablet,delayed release (DR/EC) 40 mg PO QDAY 90 Days Qty: 90 Patient Comments: potassium chloride 10 mEq capsule, extended release 10 meq PO DAILY omega-3 fatty acids 1,000 mg capsule 1,000 mg PO DAILY multivitamin Tablet 1 tab PO DAILY furosemide 20 mg tablet 20 mg PO BID tamsulosin 0.4 mg capsule 0.4 mg PO DAILY mecobalamin (vitamin B12) 5,000 mcg tablet,chewable 5,000 mcg PO DAILY cholecalciferol (vitamin D3) 125 mcg (5,000 unit) capsule 125 mcg PO DAILY rosuvastatin 40 mg tablet PO Referrals / Follow Up: DANIAL DEMPSEY [Other] Disposition Disposition (needs filled in before D/C Order can be placed): Home, Self Care
== END 2023-11-29 09:24 | disposition home or self-care (01) ==
LOC: PCU 10:57
PROVIDERS: Specialist; Admitting Provider Internal Medicine Cardiovascular Disease; Referring Provider Internal Medicine Cardiovascular Disease; Visit Provider Internal Medicine Cardiovascular Disease
DX: I25.118 Atherosclerotic heart disease of native coronary artery with other forms of angina pectoris (principal); E78.5 Hyperlipidemia, unspecified; I10 Essential (primary) hypertension; Q21.12 Patent foramen ovale; Z82.49 Family history of ischemic heart disease and other diseases of the circulatory system; Z79.899 Other long term (current) drug therapy; I49.1 Atrial premature depolarization; I44.0 Atrioventricular block, first degree
CPT/HCPCS: 36415; 80053; 85027; 92928; 93005; 93454; 99152; 99153; 99221; J7050; Q9967; C1725; C1769; C1874; C1887; C1894; C9600; G0378

== ENCOUNTER → 2023-12-21 | Outpatient (CLI) | payer MEDICARE, SELFPAY ==
[2023-12-21 08:14] VITALS: BP 105/68; PULSE 63; O2SAT 96
[2023-12-21 08:20] VITALS: BP 105/68
[2023-12-21 09:04] VITALS: BMI 35.2
[2023-12-21 09:08] VITALS: BMI 35.2
== END | disposition home or self-care (01) ==
LOC: CR 08:05
PROVIDERS: PCP Family Medicine; Referring Provider Internal Medicine Cardiovascular Disease; Visit Provider Internal Medicine Cardiovascular Disease
DX: Z00.00 Encounter for general adult medical examination without abnormal findings (principal)

== ENCOUNTER → 2024-01-31 | Outpatient (CLI) | payer MEDICARE, SELFPAY ==
[2023-12-21 09:04] VITALS: BMI 35.2
--- NOTE | 2024-01-31 15:59 | CT_ITS ---
STUDY: CT CHEST WITHOUT CONTRAST REASON FOR EXAM: Male, 73 years old. Nodule on lung RADIATION DOSAGE (If Supplied By Facility): CTDIvol = ( 17.65 ) mGy, DLP = ( 608.49 ) mGycm TECHNIQUE: Transaxial imaging was performed without the administration of intravenous contrast material. Multiplanar coronal and sagittal images were reformatted. Individualized dose optimization techniques were used for this CT. COMPARISON: Comparison is made with prior study dated October 23, 2022. FINDINGS: CHEST Stable small bilateral axillary lymph nodes. Stable 5 mm noncalcified nodule seen in the lateral aspect of the right upper lobe as seen on axial image #39. There is no demonstrated pleural abnormality. There are calcifications of the coronary arteries. There are multiple small lymph nodes within the mediastinum, which are normal in size and morphology most compatible with reactive lymph hyperplasia. Normal hilar regions. Normal unenhanced pulmonary arteries. There is atherosclerotic calcification of the aortic arch. There are degenerative changes of the thoracic spine. Small hiatal hernia. CT/Chest without Contrast IMPRESSION: Stable 5 mm noncalcified nodule in the lateral aspect of the right upper lobe as described. Twelve-month follow-up CT scan recommended. Electronically Signed: Miah Nieves MD at 15:07 EST ,
== END | disposition home or self-care (01) ==
PROVIDERS: PCP Family Medicine; Referring Provider Physician Assistant Medical; Visit Provider Physician Assistant Medical
DX: R93.89 Abnormal findings on diagnostic imaging of other specified body structures (principal)
CPT/HCPCS: 71250

== ENCOUNTER 2024-02-11 10:15 | Outpatient (RCR) | payer MEDICARE, SELFPAY ==
[2023-12-21 09:04] VITALS: BMI 35.2
--- NOTE | 2024-01-23 11:03 | CR.ITP_ITS ---
Exercise - Initial Assessment Visit Comments:: Ilir is starting his CR today. Physician Prescribed Exercise Modalities: Treadmill, Schwinn Airdyne AD-7 and SciFit Stepper Psychosocial - Initial Assess Target Goals Target Goals Nutrition Survey Nutrition Survey Instructions Scoring Instructions Exercise - 30-day Assessment Visit Date of Eval: 01/23/24 Comments:: Ilir is starting his CR today. Physician Prescribed Exercise Modalities: Treadmill, Schwinn Airdyne AD-7 and SciFit Stepper Frequency: 3x/week for 12 weeks [36 sessions] Intensity: 60-80% of age predicted maximum heart rate reserve Duration: 30 - 45 minutes Current METSs:: 3 Outcomes & Goals Goals:: Verbalizes understanding of THR, RPE & goal METS by session 6, Documents in home exercise log/reports 30 min aerobic 5 day/wk by DC, Demonstrates accurate pulse taking by DC and Other additional outcome/goals: see below Intervention & Plan Exercise Program Goals: Instruct on personal THR & RPE, Instruct on MET level & personal MET goal, Show patient to take own pulse /validate performance until accurate, Instruct on home exercise and Other additional plan/int 30-day Reassessments 30 day Reassessments:: Not Met Physical Activity Home Exercise Physical Activity - Home Exercise: Safe Exercise, Warm-up, Self-monitoring, Cool-Down, Home Exercise > 30 min Daily and Sitting Time <3 hours/daily Outcomes & Goals Outcomes/Goals: Demonstrates correct Warm-up/exercise Cool-Down (S3) if = 2.5 METs, Verbalizes symptoms of exercise intolerance by Session 3 (S3), Demonstrate safe equipment use (S3) & follows exercise prescrition (6) and Other: See below Intervention & Plan Plan/Intervention: Instruct warm-up & cool-down if exercising at > 2 METs, Instruct on symptoms of exercise intolerance & actions to take, Instruct & m onitor on saf, Assess intial functional capacity & safety risk and Other See below 30-day Reassessments 30 day Reassessments:: Not Met Exercise - 60-day Assessment Physician Prescribed Exercise Modalities: Treadmill, Schwinn Airdyne AD-7 and SciFit Stepper Exercise - 90-day Assessment Physician Prescribed Exercise Modalities: Treadmill, Schwinn Airdyne AD-7 and SciFit Stepper Exercise - Final/Discharge Physician Prescribed Exercise Modalities: Treadmill, Schwinn Airdyne AD-7 and SciFit Stepper Psychosocial - 30-Day Assess Target Goals Target Goals Psychosocial - 60-Day Assess Target Goals Target Goals Psychosocial - 90-Day Assess Target Goals Target Goals Psychosocial - Final Assessmen Target Goals Target Goals
== END 2024-02-12 23:59 ==
LOC: CR 10:15
PROVIDERS: PCP Family Medicine; Referring Provider Internal Medicine Cardiovascular Disease; Visit Provider Internal Medicine Cardiovascular Disease
DX: Z95.5 Presence of coronary angioplasty implant and graft (principal); R93.1 Abnormal findings on diagnostic imaging of heart and coronary circulation
CPT/HCPCS: 93798

== ENCOUNTER 2024-03-14 10:15 | Outpatient (RCR) | payer MEDICARE, SELFPAY ==
[2023-12-21 09:04] VITALS: BMI 35.2
--- NOTE | 2024-02-20 09:40 | PCM.CR.ITP ---
Exercise - Initial Assessment Physician Prescribed Exercise Modalities: Treadmill, Schwinn Airdyne AD-7 and SciFit Stepper Nutrition - Initial Assessment Weight Mgt (Other Care) Height: 5 ft 8.11 in Weight:: 244 lb BMI: 36.9 Core - Initial Assessment Hypertension Resting Blood Pressure:: 126/78 [employer] Hypertension Guidelines Psychosocial - Initial Assess Target Goals Target Goals Referral to Behavioral Health PS - Interventions: Yes: Attend Stress Management Classes Patient Health Questionnaire PHQ-9 Screening 60-Day Re-eval Assessment: 1. Little interest or pleasure in doing things: Several days 2. Feeling down, depressed, or hopeless: Not at all 3. Trouble falling or staying asleep, or sleeping too much: More than half the days 4. Feeling tired or having little energy: More than half the days 5. Poor appetite or overeating: Several days 6. Feeling bad about yourself -- or that you are a failure or have let yourself or your family down: Not at all 7. Trouble concentrating on things, such as reading the newspaper or watching television: Several days 8. Moving or speaking so slowly that other people could have noticed. Or the opposite - being so fidgety or restless that you have been moving around a lot more than usual: Not at all 9. Thoughts that you would be better off , or of hurting yourself in some way: Not at all How difficult have these problems made it for you to do your work, take care of things at home, or get along with other people?: Not difficult at all Total Score: 7 Self-Efficacy 6-Item Scale 60-Day Re-eval Assessment: We would like to know how confident you are in doing certain activities. Please select your confidence level for: Fatigue Select Number: 8 Physical Discomfort or Pain Select Number: 8 Emotional Distress Select Number: 10 Other Symptoms or Health Problems Select Number: 10 Different Tasks and Activities Select Number: 9 Medication Select Number: 10 Total Score:: 9 Nutrition Survey Nutrition Survey Instructions Scoring Instructions Exercise - 30-day Assessment Physician Prescribed Exercise Modalities: Treadmill, Schwinn Airdyne AD-7 and SciFit Stepper Exercise - 60-day Assessment Visit Date of Eval: 02/20/24 Session #:: 8 Stress Test EKG: NSR with 1st degree block, rare PAC Physician Prescribed Exercise Modalities: Treadmill, Schwinn Airdyne AD-7 and SciFit Stepper Frequency: 3x/week for 12 weeks [36 sessions] Intensity: 60-80% of age predicted maximum heart rate reserve Duration: 30 - 45 minutes Current METSs:: 4.2 Target Heart Rate:: 96-111 Current RPE:: 12.5-13 Maximum Excercise HR:: 96 Resting Blood Pressure: 126/78 Maximum Exercise Blood Pressure: 130/76 EKG Type: NSR with 1st degree block, rare PAC Outcomes & Goals Goals:: Verbalizes understanding of THR, RPE & goal METS by session 6, Documents in home exercise log/reports 30 min aerobic 5 day/wk by DC, Demonstrates accurate pulse taking by DC and Other additional outcome/goals: see below Intervention & Plan Exercise Program Goals: Instruct on personal THR & RPE, Instruct on MET level & personal MET goal, Show patient to take own pulse /validate performance until accurate, Instruct on home exercise and Other additional plan/int Physical Activity Home Exercise Physical Activity - Home Exercise: Safe Exercise, Warm-up, Self-monitoring, Cool-Down, Home Exercise > 30 min Daily and Sitting Time <3 hours/daily Outcomes & Goals Outcomes/Goals: Demonstrates correct Warm-up/exercise Cool-Down (S3) if = 2.5 METs, Verbalizes symptoms of exercise intolerance by Session 3 (S3), Demonstrate safe equipment use (S3) & follows exercise prescrition (6) and Other: See below Intervention & Plan Plan/Intervention: Instruct warm-up & cool-down if exercising at > 2 METs, Instruct on symptoms of exercise intolerance & actions to take, Instruct & monitor on saf, Assess intial functional capacity & safety risk and Other See below 30-day Reassessments 30 day Reassessments:: Progressing Reassessment Notes & Comments:: Proper warm up explained and demonstrated to pt. Pt is able to return demonstration. Exercise - 90-day Assessment Physician Prescribed Exercise Modalities: Treadmill, Schwinn Airdyne AD-7 and SciFit Stepper Exercise - Final/Discharge Physician Prescribed Exercise Modalities: Treadmill, Schwinn Airdyne AD-7 and SciFit Stepper Nutrition - 30-Day Assessment Weight Mgt (Other Care) Height: 5 ft 8.11 in Weight:: 244 lb BMI: 36.9 Nutrition - 60-Day Assessment Program Goals Nutrition Program Goals Patient has diagnosis of Hyperlipidemia (ICD E78)?: Yes Visit Date of Eval: 02/20/24 Session #:: 8 Cholesterol/Lipids (Other Core Measures) Determine presence & major risk factors that modify LDL goal: Hypertension or hypertensive medication, Low HDL cholesterol <40 mg/dL*, Family history of premature CHD in Male < 55 years: female <65 yearsFa and Age men > 45 years; women >/= 55 years Outcomes/Goals: Pt IDs own risk factors & lifestyle modifications by Session 10, Verbalizes symptoms of angina & response by session 3., Pt independently manages and Other Additional Outcomes/Goals: Intervention/Plan: Advocate for lipid panel cholesterol medication if applicable, Instruct on personal lipid levels & lipid goals/NCEP guidelines, Instruct on cholesterol and Other additional plan/int Referral to dietitian:: No Diabetes (Other Core Measures) Diabetes Type: Not Applicable Weight Mgt (Other Care) Height: 5 ft 8.11 in Weight:: 244 lb BMI: 36.9 Diagnosis Overweight/Obesity BMI> 30% ICD-10 E66: Yes Diagnosis High BMI/Morbid Obesity BMI> 35% ICD-10 Z68: Yes Outcomes/Goals: Pt sets, maintains & shows weight loss goal & trend during rehab and Other additional outcomes/goals Intervention/Plan: Instruct on ideal BMI & set weight loss goal w/patient, Assist pt to ID & incorporate diet changes for weight loss by S9, Refer to Structured Weight Loss program as appropriate, Encourage goal of using 250-300dcal per session for weight loss and Other additional plan/interventions Healthy Eating Habits Will attend diet classes:: Yes Outcomes/Goals:: Consume diet rich in vegs,fruits,whole grain/high fiber,fish,lean meat, Limit sat/trans fats,cholesterol & added salts & sugars and Other additional outcome/goals: Intervention/Plan:: Assess current eating habits and Other Additional plan/interventions 30-day Reassessments:: Progressing Reassessment Notes & Comments:: Pt is scheduled to attend nutrition class. Pt is encouraged to keep a food log and eat a low sodium diet. Education Gave educational materials for:: Signs & symptoms of hypoglycemia, Signs & symptoms of hyperglycemia, Relate diabetes to coronary artery disease and Healthy eating Core - Final Assessment Hypertension Resting Blood Pressure:: 126/78 [employer] Hypertension Guidelines Core - 60-Day Assessment Visit Date of Eval: 02/20/24 Session #:: 8 Medication Compliance Preventative Medication(s):: Aspirin, Ticagrelor/P2Y12 inhibitor, Statin/lipid and Beta bryan H/O mental health issues: depression, anxiety, or addiction?: No Doesn?t believe in the benefits of treatment?: No Believes medications are unnecessary or harmful?: No Has a concern about medication side effects?: No Expresses concern over the cost of medications?: No Outcomes/Goals: Verbalizes medications,desired effect & common side effects @ DC, Pt self-reports following medication regimen, Keeps card in wallet w/medications listed by DC and Other additional outcome/goals: Interventions/plans: Instruct on medication effects & side effects, Review medication list w/patient every two weeks, Instruct importance of taking meds as ordered & assist problem solving and Other additional Tobacco Use Tobacco Use: Non-smoker Outcomes/Goals: Smoking cessation achieved or maintained by discharge, Identify aids/strategies for achieving smoking cessation by session 6 and Other additional outcome/goals Interventions/plan: Instruct on effects of smoking & provide smoking cessation resource, Assist pt to set quit date & provide encouragement, Assist pt to develop strategies to achieve/maintain quit date, Assist pt w/nicotine replacement & medication for cessation success and Other additional plan/interventions Hypertension Hypertension Diagnosis:: Hypertension ICD-10 I10 Resting Blood Pressure:: 126/78 Resting Blood Pressure:: 126/78 [employer] Hypertension Guidelines Peak Exercise Blood Pressure:: 130/76 Outcomes/Goals: Able to verbalize/achieve optimal blood pressure <130/80, Incorporates diet changes & exercise for blood pressure control by DC and Other additional outcomes/goals Interventions/plan: Instruct on optimal blood pressure, hypertension & medications, Instruct on effects of sodium, alcohol, stress, exercise &hypertension and Other additional plan/interventions 30 day Reassessments:: Progressing Reassessment Notes & Comments:: Pt is encouraged to eat a low sodium diet to help lower BP's. Pt's BP's are borderline normal per AHA guidlines. Tobacco Cessation Referral Smoking Cessation Referral:: No Individual Education/Counseling:: No Education Schedule Given:: Yes Psychosocial - 30-Day Assess Target Goals Target Goals Referral to Behavioral Health PS - Interventions: Yes: Attend Stress Management Classes Outcomes/Goals: See list Psychosocial Outcomes/Goals:: ID's personal stressors & 2 strategies to manage stress by discharge and Other Additional outcome/goals: Psychosocial - 60-Day Assess VIsit Date of Eval: 02/20/24 Session #:: 8 History of previous Mental disease:: No Target Goals Target Goals Psychosocial Test Tool Used:: [employer] QOL Cardiac and PHQ-9 Questionnaire phq-9 Severity Referral to Behavioral Health PS - Interventions: Yes: Attend Stress Management Classes Outcomes/Goals: See list Psychosocial Outcomes/Goals:: ID's personal stressors & 2 strategies to manage stress by discharge and Other Additional outcome/goals: Intervention/Plan: See List Interventions/Plan:: Assess stressors,coping strategies & signs of derpression on admission, Instruct/assist pt to develop coping & personal stress Mgt strategies, Refer to Behavioral Health if appropriate, Refer to Physician if appropriate, Instruct patient to recognize signs & symptoms of depression, Instruct patient to recog and Other additional plan/intervention 30-day Reassessments: 30 day Reassessments:: Met Reassessment Notes & Comments:: Pt denies any psychosocial issues at this time. Will continue to monitor. Pt is also scheduled to attend stress management class, Psychosocial - 90-Day Assess Target Goals Target Goals Referral to Behavioral Health PS - Interventions: Yes: Attend Stress Management Classes Psychosocial - Final Assessmen Target Goals Target Goals Referral to Behavioral Health PS - Interventions: Yes: Attend Stress Management Classes Nutrition - 90-Day Assessment Weight Mgt (Other Care) Height: 5 ft 8.11 in Weight:: 244 lb BMI: 36.9 Nutrition - Final Assessment Weight Mgt (Other Care) Height: 5 ft 8.11 in Weight:: 244 lb BMI: 36.9
[2024-02-20 09:58] VITALS: BP 126/78; BMI 36.9
== END 2024-03-14 23:59 ==
LOC: CR 10:15
PROVIDERS: PCP Family Medicine; Referring Provider Internal Medicine Cardiovascular Disease; Visit Provider Internal Medicine Cardiovascular Disease
DX: Z95.5 Presence of coronary angioplasty implant and graft (principal); R93.1 Abnormal findings on diagnostic imaging of heart and coronary circulation

== ENCOUNTER 2024-04-09 10:15 | Outpatient (RCR) | payer MEDICARE, SELFPAY ==
[2024-02-20 09:58] VITALS: BMI 36.9
[2024-03-15 01:13] VITALS: BP 126/78
--- NOTE | 2024-03-21 08:26 | CR.ITP_ITS ---
Exercise - Initial Assessment Physician Prescribed Exercise Modalities: Treadmill, Schwinn Airdyne AD-7 and SciFit Stepper Nutrition - Initial Assessment Weight Mgt (Other Care) Height: 5 ft 8.1 in Weight:: 241 lb BMI: 36.5 Psychosocial - Initial Assess Target Goals Target Goals Referral to Behavioral Health PS - Interventions: Yes: Attend Stress Management Classes Patient Health Questionnaire PHQ-9 Screening 90-Day Re-eval Assessment: 1. Little interest or pleasure in doing things: Several days 2. Feeling down, depressed, or hopeless: Not at all 3. Trouble falling or staying asleep, or sleeping too much: More than half the days 4. Feeling tired or having little energy: More than half the days 5. Poor appetite or overeating: Several days 6. Feeling bad about yourself -- or that you are a failure or have let yourself or your family down: Not at all 7. Trouble concentrating on things, such as reading the newspaper or watching television: Several days 8. Moving or speaking so slowly that other people could have noticed. Or the opposite - being so fidgety or restless that you have been moving around a lot more than usual: Not at all 9. Thoughts that you would be better off , or of hurting yourself in some way: Not at all How difficult have these problems made it for you to do your work, take care of things at home, or get along with other people?: Not difficult at all Total Score: 7 Self-Efficacy 6-Item Scale 90-Day Re-eval Assessment: We would like to know how confident you are in doing certain activities. Please select your confidence level for: Fatigue Select Number: 8 Physical Discomfort or Pain Select Number: 8 Emotional Distress Select Number: 10 Other Symptoms or Health Problems Select Number: 10 Different Tasks and Activities Select Number: 9 Medication Select Number: 10 Total Score:: 9 Nutrition Survey Nutrition Survey Instructions Scoring Instructions Exercise - 30-day Assessment Physician Prescribed Exercise Modalities: Treadmill, Schwinn Airdyne AD-7 and SciFit Stepper Exercise - 60-day Assessment Physician Prescribed Exercise Modalities: Treadmill, Schwinn Airdyne AD-7 and SciFit Stepper Exercise - 90-day Assessment Visit Date of Eval: 03/21/24 Session #:: 17 Physician Prescribed Exercise Modalities: Treadmill, Schwinn Airdyne AD-7 and SciFit Stepper Frequency: 3x/week for 12 weeks [36 sessions] Intensity: 60-80% of age predicted maximum heart rate reserve Duration: 30 - 45 minutes Current METSs:: 4.6 Target Heart Rate:: 96-111 Current RPE:: 13.5-14 Maximum Excercise HR:: 101 Resting Blood Pressure: 122/70 Maximum Exercise Blood Pressure: 130/50 EKG Type: NSR to ST with 1st degree block, rare PAC Outcomes & Goals Goals:: Verbalizes understanding of THR, RPE & goal METS by session 6, Documents in home exercise log/reports 30 min aerobic 5 day/wk by DC, Demonstrates accurate pulse taking by DC and Other additional outcome/goals: see below Intervention & Plan Exercise Program Goals: Instruct on personal THR & RPE, Instruct on MET level & personal MET goal, Show patient to take own pulse /validate performance until accurate, Instruct on home exercise and Other additional plan/int Physical Activity Home Exercise Physical Activity - Home Exercise: Safe Exercise, Warm-up, Self-monitoring, Cool-Down, Home Exercise > 30 min Daily and Sitting Time <3 hours/daily Outcomes & Goals Outcomes/Goals: Demonstrates correct Warm-up/exercise Cool-Down (S3) if = 2.5 METs, Verbalizes symptoms of exercise intolerance by Session 3 (S3), Demonstrate safe equipment use (S3) & follows exercise prescrition (6) and Other: See below Intervention & Plan Plan/Intervention: Instruct warm-up & cool-down if exercising at > 2 METs, Instruct on symptoms of exercise intolerance & actions to take, Instruct & monitor on saf, Assess intial functional capacity & safety risk and Other See below 30-day Reassessments 30 day Reassessments:: Progressing Reassessment Notes & Comments:: Proper cool down demonstrated and explained to pt. Pt is able to return demonstration. Exercise - Final/Discharge Physician Prescribed Exercise Modalities: Treadmill, Schwinn Airdyne AD-7 and SciFit Stepper Nutrition - 30-Day Assessment Weight Mgt (Other Care) Height: 5 ft 8.1 in Weight:: 241 lb BMI: 36.5 Nutrition - 60-Day Assessment Weight Mgt (Other Care) Height: 5 ft 8.1 in Weight:: 241 lb BMI: 36.5 Core - 30-Day Assessment Hypertension [employer] Hypertension Guidelines Reassessment Notes & Comments:: Pt BP's a slightly elevated. Will send report to pt's physician if necessary. Core - Final Assessment Hypertension [employer] Hypertension Guidelines Reassessment Notes & Comments:: Pt BP's a slightly elevated. Will send report to pt's physician if necessary. Core - 90 Day Assessment Visit Date of Eval: 03/21/24 Session #:: 17 Medication Compliance Preventative Medication(s):: Aspirin, Ticagrelor/P2Y12 inhibitor, Statin/lipid and Beta bryan H/O mental health issues: depression, anxiety, or addiction?: No Doesn?t believe in the benefits of treatment?: No Believes medications are unnecessary or harmful?: No Has a concern about medication side effects?: No Expresses concern over the cost of medications?: No Outcomes/Goals: Verbalizes medications,desired effect & common side effects @ DC, Pt self-reports following medication regimen, Keeps card in wallet w/medications listed by DC and Other additional outcome/goals: Tobacco Use Tobacco Use: Non-smoker Hypertension Hypertension Diagnosis:: Hypertension ICD-10 I10 Resting Blood Pressure:: 122/70 [employer] Hypertension Guidelines Peak Exercise Blood Pressure:: 130/50 Outcomes/Goals: Able to verbalize/achieve optimal blood pressure <130/80, Incorporates diet changes & exercise for blood pressure control by DC and Other additional outcomes/goals Interventions/plan: Instruct on optimal blood pressure, hypertension & medications, Instruct on effects of sodium, alcohol, stress, exercise &hyperten darvin and Other additional plan/interventions 30 day Reassessments:: Progressing Reassessment Notes & Comments:: Pt BP's a slightly elevated. Will send report to pt's physician if necessary. Tobacco Cessation Referral Smoking Cessation Referral:: No Individual Education/Counseling:: No Education Schedule Given:: Yes Psychosocial - 30-Day Assess Target Goals Target Goals Referral to Behavioral Health PS - Interventions: Yes: Attend Stress Management Classes Psychosocial - 60-Day Assess Target Goals Target Goals Referral to Behavioral Health PS - Interventions: Yes: Attend Stress Management Classes Psychosocial - 90-Day Assess VIsit Date of Eval: 03/21/24 Session #:: 17 History of previous Mental disease:: No Target Goals Target Goals Referral to Behavioral Health PS - Interventions: Yes: Attend Stress Management Classes Outcomes/Goals: See list Psychosocial Outcomes/Goals:: ID's personal stressors & 2 strategies to manage stress by discharge and Other Additional outcome/goals: Intervention/Plan: See List Interventions/Plan:: Assess stressors,coping strategies & signs of derpression on admission, Instruct/assist pt to develop coping & personal stress Mgt strategies, Refer to Behavioral Health if appropriate, Refer to Physician if appropriate, Instruct patient to recognize signs & symptoms of depression, Instruct patient to recog and Other additional plan/intervention 30-day Reassessments: 30 day Reassessments:: Met Reassessment Notes & Comments:: Pt denies any psychosocial issues at this time. Psychosocial - Final Assessmen Target Goals Target Goals Referral to Behavioral Health PS - Interventions: Yes: Attend Stress Management Classes Nutrition - 90-Day Assessment Program Goals Nutrition Program Goals Patient has diagnosis of Hyperlipidemia (ICD E78)?: Yes Visit Date of Eval: 03/21/24 Session #:: 17 Cholesterol/Lipids (Other Core Measures) Determine presence & major risk factors that modify LDL goal: Hypertension or hypertensive medication, Low HDL cholesterol <40 mg/dL*, Family history of premature CHD in Male < 55 years: female <65 yearsFa and Age men > 45 years; women >/= 55 years Outcomes/Goals: Pt IDs own risk factors & lifestyle modifications by Session 10, Verbalizes symptoms of angina & response by session 3., Pt independently manages and Other Additional Outcomes/Goals: Intervention/Plan: Advocate for lipid panel cholesterol medication if applicable, Instruct on personal lipid levels & lipid goals/NCEP guidelines, Instruct on cholesterol and Other additional plan/int Diabetes (Other Core Measures) Diabetes Type: Not Applicable Weight Mgt (Other Care) Height: 5 ft 8.1 in Weight:: 241 lb BMI: 36.5 Diagnosis Overweight/Obesity BMI> 30% ICD-10 E66: No Diagnosis High BMI/Morbid Obesity BMI> 35% ICD-10 Z68: Yes Outcomes/Goals: Pt sets, maintains & shows weight loss goal & trend during rehab and Other additional outcomes/goals Intervention/Plan: Instruct on ideal BMI & set weight loss goal w/patient, Assist pt to ID & incorporate diet changes for weight loss by S9, Refer to Structured Weight Loss program as appropriate, Encourage goal of using 250- 300dcal per session for weight loss and Other additional plan/interventions Healthy Eating Habits Will attend diet classes:: Yes Outcomes/Goals:: Consume diet rich in vegs,fruits,whole grain/high fiber,fish,lean meat, Limit sat/trans fats,cholesterol & added salts & sugars and Other additional outcome/goals: Intervention/Plan:: Assess current eating habits and Other Additional plan/interventions 30-day Reassessments:: Progressing Reassessment Notes & Comments:: Pt will attend nutrition class next week. Pt encouraged to log his food intake and bring in for our review. Education Gave educational materials for:: Signs & symptoms of hypoglycemia, Signs & symptoms of hyperglycemia, Relate diabetes to coronary artery disease and Healthy eating Nutrition - Final Assessment Weight Mgt (Other Care) Height: 5 ft 8.1 in Weight:: 241 lb BMI: 36.5
[2024-03-21 08:37] VITALS: BP 122/70; BMI 36.5
== END 2024-04-11 23:59 ==
LOC: CR 10:15
PROVIDERS: PCP Family Medicine; Referring Provider Internal Medicine Cardiovascular Disease; Visit Provider Internal Medicine Cardiovascular Disease
DX: Z95.5 Presence of coronary angioplasty implant and graft (principal); R93.1 Abnormal findings on diagnostic imaging of heart and coronary circulation
CPT/HCPCS: 93798

== ENCOUNTER 2024-05-12 15:15 | Outpatient (RCR) | payer MEDICARE, SELFPAY ==
[2024-03-21 08:37] VITALS: BMI 36.5
[2024-04-12 00:54] VITALS: BP 122/70; BP 126/78
--- NOTE | 2024-04-18 09:26 | CR.ITP_ITS ---
Exercise - Initial Assessment Physician Prescribed Exercise Modalities: Treadmill, Schwinn Airdyne AD-7 and SciFit Stepper Nutrition - Initial Assessment Program Goals Nutrition Program Goals Patient has diagnosis of Hyperlipidemia (ICD E78)?: Yes Weight Mgt (Other Care) Height: 5 ft 8 in Weight:: 237 lb 8 oz BMI: 36.1 Core - Initial Assessment Hypertension Resting Blood Pressure:: 120/80 [employer] Hypertension Guidelines Psychosocial - Initial Assess Target Goals Target Goals Psychosocial Test phq-9 Severity See PHQ-9 Score: 7 Referral to Behavioral Health PS - Interventions: Yes: Attend Stress Management Classes Patient Health Questionnaire PHQ-9 Screening Discharge Assessment: 1. Little interest or pleasure in doing things: Several days 2. Feeling down, depressed, or hopeless: Not at all 3. Trouble falling or staying asleep, or sleeping too much: More than half the days 4. Feeling tired or having little energy: More than half the days 5. Poor appetite or overeating: Several days 6. Feeling bad about yourself -- or that you are a failure or have let yourself or your family down: Not at all 7. Trouble concentrating on things, such as reading the newspaper or watching television: Several days 8. Moving or speaking so slowly that other people could have noticed. Or the opposite - being so fidgety or restless that you have been moving around a lot more than usual: Not at all 9. Thoughts that you would be better off , or of hurting yourself in some way: Not at all Total Score: 7 Self-Efficacy 6-Item Scale Discharge Assessment: We would like to know how confident you are in doing certain activities. Please select your confidence level for: Fatigue Select Number: 8 Physical Discomfort or Pain Select Number: 8 Emotional Distress Select Number: 10 Other Symptoms or Health Problems Select Number: 10 Different Tasks and Activities Select Number: 9 Medication Select Number: 10 Total Score:: 9 Nutrition Survey Nutrition Survey Instructions Scoring Instructions Exercise - 30-day Assessment Physician Prescribed Exercise Modalities: Treadmill, Schwinn Airdyne AD-7 and SciFit Stepper Exercise - 60-day Assessment Physician Prescribed Exercise Modalities: Treadmill, Schwinn Airdyne AD-7 and SciFit Stepper Exercise - 90-day Assessment Physician Prescribed Exercise Modalities: Treadmill, Schwinn Airdyne AD-7 and SciFit Stepper Exercise - Final/Discharge Visit Date of Eval: 04/18/24 Session #:: 25 (still has 10 sessions left to complete) Physician Prescribed Exercise Modalities: Treadmill, Schwinn Airdyne AD-7 and SciFit Stepper Frequency: 3x/week for 12 weeks [36 sessions] Intensity: 60-80% of age predicted maximum heart rate reserve Duration: 30 - 45 minutes METs - Progression 0.5-1.0 weekly:: 0.5 Current METSs:: 4.8 Target Heart Rate:: 96-118 Target RPE 12-16:: 14 Maximum Heart Rate:: 109 Resting Blood Pressure: 120/80 Maximum Exercise Blood Pressure: 138/64 EKG Type: 1DAVB with rare PAC, PVC. Current Physical Activity or Exercising minutes: 30 MINS Outcomes & Goals Goals:: Verbalizes understanding of THR, RPE & goal METS by session 6, Documents in home exercise log/reports 30 min aerobic 5 day/wk by DC and Demonstrates accurate pulse taking by DC Intervention & Plan Exercise Program Goals: Instruct on personal THR & RPE, Instruct on MET level & personal MET goal, Show patient to take own pulse /validate performance until accurate and Instruct on home exercise 30-day Reassessments 30 day Reassessments:: Met Reassessment Notes & Comments:: demonstrates understanding of Target HR and use of RPE scale. Physical Activity Home Exercise Physical Activity - Home Exercise: Safe Exercise, Warm-up, Self-monitoring, Cool-Down, Home Exercise > 30 min Daily and Sitting Time <3 hours/daily Outcomes & Goals Outcomes/Goals: Demonstrates correct Warm-up/exercise Cool-Down (S3) if = 2.5 METs, Verbalizes symptoms of exercise intolerance by Session 3 (S3) and Demonstrate safe equipment use (S3) & follows exercise prescrition (6) Intervention & Plan Plan/Intervention: Instruct warm-up & cool-down if exercising at > 2 METs, Instruct on symptoms of exercise intolerance & actions to take, Instruct & monitor on saf and Assess intial functional capacity & safety risk 30-day Reassessments 30 day Reassessments:: Met Reassessment Notes & Comments:: has continued to increase exercise workloads according to RPE rating. demonstrates understanding of warm up and cool down with exercise. Nutrition - 30-Day Assessment Weight Mgt (Other Care) Height: 5 ft 8 in Weight:: 237 lb 8 oz BMI: 36.1 Nutrition - 60-Day Assessment Weight Mgt (Other Care) Height: 5 ft 8 in Weight:: 237 lb 8 oz BMI: 36.1 Core - 30-Day Assessment Hypertension [employer] Hypertension Guidelines Reassessment Notes & Comments:: Pt is taking his BP meds as prescribed. his resting BP's after exercise are between 102-128 systolic. Core - Final Assessment Visit Date of Eval: 04/18/24 Session #:: 25 (still has 10 sessions left to complete) Medication Compliance Preventative Medication(s):: Aspirin, Ticagrelor/P2Y12 inhibitor, Statin/lipid and Beta bryan H/O mental health issues: depression, anxiety, or addiction?: No Doesn?t believe in the benefits of treatment?: No Believes medications are unnecessary or harmful?: No Has a concern about medication side effects?: No Expresses concern over the cost of medications?: No Outcomes/Goals: Verbalizes medications,desired effect & common side effects @ DC, Pt self-reports following medication regimen and Keeps card in wallet w/medications listed by DC Interventions/plans: Instruct on medication effects & side effects, Review medication list w/patient every two weeks and Instruct importance of taking meds as ordered & assist problem solving 30-day Reassessments:: Met Reassessment Notes & Comments:: Pt is taking his medications as prescribed. is knowledgeable on his meds and understands why he is taking them. no concerns at this time. Tobacco Use Tobacco Use: Non-smoker Hypertension Hypertension Diagnosis:: Hypertension ICD-10 I10 Resting Blood Pressure:: 120/80 [employer] Hypertension Guidelines Peak Exercise Blood Pressure:: 138/64 Outcomes/Goals: Able to verbalize/achieve optimal blood pressure <130/80 and Incorporates diet changes & exercise for blood pressure control by DC Interventions/plan: Instruct on optimal blood pressure, hypertension & medications and Instruct on effects of sodium, alcohol, stress, exercise &hypertension 30 day Reassessments:: Met Reassessment Notes & Comments:: Pt is taking his BP meds as prescribed. his resting BP's after exercise are between 102-128 systolic. Tobacco Cessation Referral Smoking Cessation Referral:: No Individual Education/Counseling:: No Education Schedule Given:: Yes Core - 90 Day Assessment Hypertension [employer] Hypertension Guidelines Reassessment Notes & Comments:: Pt is taking his BP meds as prescribed. his resting BP's after exercise are between 102-128 systolic. Core - 60-Day Assessment Hypertension Resting Blood Pressure:: 120/80 [employer] Hypertension Guidelines Psychosocial - 30-Day Assess Target Goals Target Goals Referral to Behavioral Health PS - Interventions: Yes: Attend Stress Management Classes Psychosocial - 60-Day Assess Target Goals Target Goals Referral to Behavioral Health PS - Interventions: Yes: Attend Stress Management Classes Psychosocial - 90-Day Assess Target Goals Target Goals Referral to Behavioral Health PS - Interventions: Yes: Attend Stress Management Classes Psychosocial - Final Assessmen VIsit Date of Eval: 04/18/24 Session #:: 25 (still has 10 sessions left to complete) History of previous Mental disease:: No Target Goals Target Goals Psychosocial Test Tool Used:: PHQ-9 Questionnaire phq-9 Severity See PHQ-9 Score: 7 Referral to Behavioral Health PS - Interventions: Yes: Attend Stress Management Classes Outcomes/Goals: See list Psychosocial Outcomes/Goals:: ID's personal stressors & 2 strategies to manage stress by discharge Intervention/Plan: See List Interventions/Plan:: Assess stressors,coping strategies & signs of derpression on admission, Instruct/assist pt to develop coping & personal stress Mgt strategies, Refer to Behavioral Health if appropriate, Refer to Physician if appropriate, Instruct patient to recognize signs & symptoms of depression and Instruct patient to recog 30-day Reassessments: 30 day Reassessments:: Met Reassessment Notes & Comments:: no psychosocial concerns at this time, is motivated and in pleasant mood while attending rehab. Nutrition - 90-Day Assessment Weight Mgt (Other Care) Height: 5 ft 8 in Weight:: 237 lb 8 oz BMI: 36.1 Healthy Eating Habits 30-day Reassessments:: Met Nutrition - Final Assessment Program Goals Patient has diagnosis of Hyperlipidemia (ICD E78)?: Yes Visit Date of Assessment:: 04/18/24 Session #:: 25 (still has 10 sessions left to complete) Cholesterol/Lipids (Other Core Measures) Determine presence & major risk factors that modify LDL goal: Hypertension or hypertensive medication, Low HDL cholesterol <40 mg/dL*, Family history of p remature CHD in Male < 55 years: female <65 yearsFa and Age men > 45 years; women >/= 55 years Outcomes/Goals: Pt IDs own risk factors & lifestyle modifications by Session 10, Verbalizes symptoms of angina & response by session 3. 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 is continuing to work towards weight loss goal. Diabetes (Other Core Measures) Diabetes Type: Not Applicable Weight Mgt (Other Care) Height: 5 ft 8 in Weight:: 237 lb 8 oz BMI: 36.1 Diagnosis High BMI/Morbid Obesity BMI> 35% ICD-10 Z68: Yes Outcomes/Goals: Pt sets, maintains & shows weight loss goal & trend during rehab Intervention/Plan: Instruct on ideal BMI & set weight loss goal w/patient, Assist pt to ID & incorporate diet changes for weight loss by S9, Refer to Structured Weight Loss program as appropriate and Encourage goal of using 250-30 0dcal per session for weight loss 30 day Reassessments:: Progressing Reassessment Notes & Comments:: is continuing to work toward weight loss goal, is down 8lb since beginning of program. Healthy Eating Habits Will attend diet classes:: Yes Outcomes/Goals:: Consume diet rich in vegs,fruits,whole grain/high fiber,fish,lean meat, Limit sat/trans fats,cholesterol & added salts & sugars and Other additional outcome/goals: Intervention/Plan:: Other Additional plan/interventions 30-day Reassessments:: Met Education Gave educational materials for:: Signs & symptoms of hypoglycemia, Signs & symptoms of hyperglycemia, Relate diabetes to coronary artery disease and Healthy eating
[2024-04-18 09:38] VITALS: BP 120/80
[2024-04-18 09:56] VITALS: BP 120/80; BMI 36.1
== END 2024-05-12 23:59 ==
LOC: CR 15:15
PROVIDERS: PCP Family Medicine; Referring Provider Internal Medicine Cardiovascular Disease; Visit Provider Internal Medicine Cardiovascular Disease
DX: Z95.5 Presence of coronary angioplasty implant and graft (principal); R93.1 Abnormal findings on diagnostic imaging of heart and coronary circulation
CPT/HCPCS: 93798

== ENCOUNTER 2024-05-23 10:15 | Outpatient (RCR) | payer MEDICARE, SELFPAY ==
[2024-04-18 09:56] VITALS: BMI 36.1
[2024-05-13 00:42] VITALS: BP 120/80; BP 122/70; BP 126/78
--- NOTE | 2024-05-15 07:19 | CR.ITP_ITS ---
Exercise - Initial Assessment Physician Prescribed Exercise Modalities: Treadmill, Schwinn Airdyne AD-7 and SciFit Stepper Nutrition - Initial Assessment Program Goals Nutrition Program Goals Patient has diagnosis of Hyperlipidemia (ICD E78)?: Yes Weight Mgt (Other Care) Height: 5 ft 8 in Weight:: 236 lb BMI: 35.9 Core - Initial Assessment Hypertension Resting Blood Pressure:: 120/70 [place] [employer] Hypertension Guidelines Psychosocial - Initial Assess Target Goals Target Goals Psychosocial Test phq-9 Severity See PHQ-9 Score: 7 Referral to Behavioral Health PS - Interventions: Yes: Attend Stress Management Classes Patient Health Questionnaire PHQ-9 Screening Discharge Assessment: 1. Little interest or pleasure in doing things: Several days 2. Feeling down, depressed, or hopeless: Not at all 3. Trouble falling or staying asleep, or sleeping too much: More than half the days 4. Feeling tired or having little energy: More than half the days 5. Poor appetite or overeating: Several days 6. Feeling bad about yourself -- or that you are a failure or have let yourself or your family down: Not at all 7. Trouble concentrating on things, such as reading the newspaper or watching television: Several days 8. Moving or speaking so slowly that other people could have noticed. Or the opposite - being so fidgety or restless that you have been moving around a lot more than usual: Not at all 9. Thoughts that you would be better off , or of hurting yourself in some way: Not at all How difficult have these problems made it for you to do your work, take care of things at home, or get along with other people?: Not difficult at all Total Score: 7 Self-Efficacy 6-Item Scale Discharge Assessment: We would like to know how confident you are in doing certain activities. Please select your confidence level for: Fatigue Select Number: 8 Physical Discomfort or Pain Select Number: 8 Emotional Distress Select Number: 10 Other Symptoms or Health Problems Select Number: 10 Different Tasks and Activities Select Number: 9 Medication Select Number: 10 Total Score:: 9 Nutrition Survey Nutrition Survey Instructions Scoring Instructions Exercise - 30-day Assessment Physician Prescribed Exercise Modalities: Treadmill, Schwinn Airdyne AD-7 and SciFit Stepper Exercise - 60-day Assessment Physician Prescribed Exercise Modalities: Treadmill, Schwinn Airdyne AD-7 and SciFit Stepper Exercise - 90-day Assessment Physician Prescribed Exercise Modalities: Treadmill, Schwinn Airdyne AD-7 and SciFit Stepper Exercise - Final/Discharge Visit Date of Evjulieta: 05/15/24 Session #:: 32 Physician Prescribed Exercise Modalities: Treadmill, Schwinn Airdyne AD-7 and SciFit Stepper Frequency: 2x/week for 18 weeks [36 sessions] Intensity: 60-80% of age predicted maximum heart rate reserve Duration: 30 - 45 minutes Current METSs:: 4.8 Target Heart Rate:: 96-118 Current RPE:: 13-15 Maximum Heart Rate:: 98 Resting Blood Pressure: 120/70 Maximum Exercise Blood Pressure: 132/68 Outcomes & Goals Goals:: Verbalizes understanding of THR, RPE & goal METS by session 6, Documents in home exercise log/reports 30 min aerobic 5 day/wk by DC, Demonstrates accurate pulse taking by DC and Other additional outcome/goals: see below Intervention & Plan Exercise Program Goals: Instruct on personal THR & RPE, Instruct on MET level & personal MET goal, Show patient to take own pulse /validate performance until accurate, Instruct on home exercise and Other additional plan/int Physical Activity Home Exercise Physical Activity - Home Exercise: Safe Exercise, Warm-up, Self-monitoring, Cool-Down, Home Exercise > 30 min Daily and Sitting Time <3 hours/daily Outcomes & Goals Outcomes/Goals: Demonstrates correct Warm-up/exercise Cool-Down (S3) if = 2.5 METs, Verbalizes symptoms of exercise intolerance by Session 3 (S3), Demonstrate safe equipment use (S3) & follows exercise prescrition (6) and Other: See below Intervention & Plan Plan/Intervention: Instruct warm-up & cool-down if exercising at > 2 METs, Instruct on symptoms of exercise intolerance & actions to take, Instruct & monitor on saf, Assess intial functional capacity & safety risk and Other See below 30-day Reassessments 30 day Reassessments:: Met Reassessment Notes & Comments:: Pt has met his exercise goals. Pt has 4 sessions remaining. Pt is ready to exercise on his own and understands the benefits of exercise. Pt will be given his current workloads and resources in the community to continue. Nutrition - 30-Day Assessment Weight Mgt (Other Care) Height: 5 ft 8 in Weight:: 236 lb BMI: 35.9 Nutrition - 60-Day Assessment Weight Mgt (Other Care) Height: 5 ft 8 in Weight:: 236 lb BMI: 35.9 Core - 30-Day Assessment Hypertension [place] [employer] Hypertension Guidelines Reassessment Notes & Comments:: Pt's BP's are within normal limits on some days. Will continue to monitor his last 4 sessions. Core - Final Assessment Visit Date of Eval: 05/15/24 Session #:: 32 Medication Compliance Preventative Medication(s):: Aspirin, Ticagrelor/P2Y12 inhibitor, Statin/lipid and Beta bryan H/O mental health issues: depression, anxiety, or addiction?: No Doesn?t believe in the benefits of treatment?: No Believes medications are unnecessary or harmful?: No Has a concern about medication side effects?: No Expresses concern over the cost of medications?: No Outcomes/Goals: Verbalizes medications,desired effect & common side effects @ DC, Pt self-reports following medication regimen, Keeps card in wallet w/medications listed by DC and Other additional outcome/goals: Interventions/plans: Instruct on medication effects & side effects, Review medication list w/patient every two weeks, Instruct importance of taking meds as ordered & assist problem solving and Other additional Tobacco Use Tobacco Use: Non-smoker Hypertension Hypertension Diagnosis:: Hypertension ICD-10 I10 Resting Blood Pressure:: 120/70 [place] [employer] Hypertension Guidelines Peak Exercise Blood Pressure:: 132/68 Outcomes/Goals: Able to verbalize/achieve optimal blood pressure <130/80, Incorporates diet changes & exercise for blood pressure control by DC and Other additional outcomes/goals Interventions/plan: Instruct on optimal blood pressure, hypertension & medications, Instruct on effects of sodium, alcohol, stress, exercise &hypertension and Other additional plan/interventions 30 day Reassessments:: Progressing Reassessment Notes & Comments:: Pt's BP's are within normal limits on some days. Will continue to monitor his last 4 sessions. Tobacco Cessation Referral Smoking Cessation Referral:: No Individual Education/Counseling:: No Education Schedule Given:: Yes Core - 90 Day Assessment Hypertension [place] [employer] Hypertension Guidelines Reassessment Notes & Comments:: Pt's BP's are within normal limits on some days. Will continue to monitor his last 4 sessions. Core - 60-Day Assessment Hypertension Resting Blood Pressure:: 120/70 [place] [employer] Hypertension Guidelines Psychosocial - 30-Day Assess Target Goals Target Goals Referral to Behavioral Health PS - Interventions: Yes: Attend Stress Management Classes Psychosocial - 60-Day Assess Target Goals Target Goals Referral to Behavioral Health PS - Interventions: Yes: Attend Stress Management Classes Psychosocial - 90-Day Assess Target Goals Target Goals Referral to Behavioral Health PS - Interventions: Yes: Attend Stress Management Classes Psychosocial - Final Assessmen VIsit Date of Eval: 05/15/24 Session #:: 32 History of previous Mental disease:: No Target Goals Target Goals Psychosocial Test Tool Used:: [employer] QOL Cardiac and PHQ-9 Questionnaire phq-9 Severity See PHQ-9 Score: 7 Referral to Behavioral Health PS - Interventions: Yes: Attend Stress Management Classes Outcomes/Goals: See list Psychosocial Outcomes/Goals:: ID's personal stressors & 2 strategies to manage stress by discharge and Other Additional outcome/goals: Intervention/Plan: See List Interventions/Plan:: Assess stressors,coping strategies & signs of derpression on admission, Instruct/assist pt to develop coping & personal stress Mgt strategies, Refer to Behavioral Health if appropriate, Refer to Physician if appropriate, Instruct patient to recognize signs & symptoms of depression, Instruct patient to recog and Other additional plan/intervention 30-day Reassessments: 30 day Reassessments:: Met Reassessment Notes & Comments:: Pt denies any psychosocial issues. Nutrition - 90-Day Assessment Weight Mgt (Other Care) Height: 5 ft 8 in Weight:: 236 lb BMI: 35.9 Nutrition - Final Assessment Program Goals Patient has diagnosis of Hyperlipidemia (ICD E78)?: Yes Visit Date of Assessment:: 05/15/24 Session #:: 32 Cholesterol/Lipids (Other Core Measures) Determine presence & major risk factors that modify LDL goal: Hypertension or hypertensive medication, Low HDL cholesterol <40 mg/dL*, Family history of premature CHD in Male < 55 years: female <65 yearsFa and Age men > 45 years; women >/= 55 years Diabetes (Other Core Measures) Diabetes Type: Not Applicable Weight Mgt (Other Care) Height: 5 ft 8 in Weight:: 236 lb BMI: 35.9 Diagnosis Overweight/Obesity BMI> 30% ICD-10 E66: Yes Diagnosis High BMI/Morbid Obesity BMI> 35% ICD-10 Z68: Yes Outcomes/Goals: Pt sets, maintains & shows weight loss goal & trend during rehab and Other additional outcomes/goals Intervention/Plan: Instruct on ideal BMI & set weight loss goal w/patient, Assist pt to ID & incorporate diet changes for weight loss by S9, Refer to Structured Weight Loss program as appropriate, Encourage goal of using 250- 300dcal per session for weight loss and Other additional plan/interventions Healthy Eating Habits Will attend diet classes:: Yes Outcomes/Goals:: Consume diet rich in vegs,fruits,whole grain/high fiber,fish,lean meat, Limit sat/trans fats,cholesterol & added salts & sugars and Other additional outcome/goals: Intervention/Plan:: Assess current eating habits and Other Additional plan/interventions 30-day Reassessments:: Met Reassessment Notes & Comments:: Pt has attended nutrition class and understands the benefits of a heart healthy low sodium diet. Education Gave educational materials for:: Signs & symptoms of hypoglycemia, Signs & symptoms of hyperglycemia, Relate diabetes to coronary artery disease and Healthy eating
[2024-05-15 07:29] VITALS: BP 120/70; BMI 35.9
== END 2024-06-11 23:59 ==
LOC: CR 10:15
PROVIDERS: PCP Family Medicine; Referring Provider Internal Medicine Cardiovascular Disease; Visit Provider Internal Medicine Cardiovascular Disease
DX: Z95.5 Presence of coronary angioplasty implant and graft (principal); R93.1 Abnormal findings on diagnostic imaging of heart and coronary circulation
CPT/HCPCS: 93798

== ENCOUNTER → 2024-06-03 | Outpatient (CLI) | payer MEDICARE, SELFPAY ==
[2024-05-15 07:29] VITALS: BMI 35.9
[2024-06-03 11:17] LABS: Hemoglobin A1c 6.6 % (<=5.6)
[2024-06-03 11:24] LABS: Microalbumin,Random Urine 48.7 mg/L (NO RANGE EST.); Microalbumin:Creatinine Ratio 314.2 mg/g CRE
== END | disposition home or self-care (01) ==
LOC: LAB 10:01
PROVIDERS: PCP Family Medicine; Referring Provider Internal Medicine Cardiovascular Disease; Visit Provider Internal Medicine Cardiovascular Disease
DX: I10 Essential (primary) hypertension (principal); Z95.5 Presence of coronary angioplasty implant and graft
CPT/HCPCS: 36415; 82043; 82570; 83036

== ENCOUNTER 2024-06-10 08:00 | Outpatient (RCR) | payer MEDICARE, SELFPAY ==
[2024-05-15 07:29] VITALS: BMI 35.9
== END 2024-06-11 23:59 ==
LOC: CR 08:00
PROVIDERS: PCP Family Medicine; Referring Provider Internal Medicine Cardiovascular Disease; Visit Provider Internal Medicine Cardiovascular Disease
DX: Z95.5 Presence of coronary angioplasty implant and graft (principal); R93.1 Abnormal findings on diagnostic imaging of heart and coronary circulation

== ENCOUNTER 2024-07-03 08:00 | Outpatient (RCR) | payer SELFPAY ==
[2024-05-15 07:29] VITALS: BMI 35.9
== END 2024-07-12 23:59 ==
LOC: CR 08:00
PROVIDERS: PCP Family Medicine; Referring Provider Internal Medicine Cardiovascular Disease; Visit Provider Internal Medicine Cardiovascular Disease
DX: Z00.00 Encounter for general adult medical examination without abnormal findings (principal)

== ENCOUNTER → 2025-01-24 | Outpatient (CLI) | payer MEDICARE, SELFPAY ==
[2023-12-21 09:04] VITALS: BMI 35.2
[2024-05-15 07:29] VITALS: BMI 35.9
--- NOTE | 2025-01-24 08:35 | CT_ITS ---
PROCEDURE: CHEST WITHOUT CONTRAST 01/24/2025 REASON FOR EXAM: NODULE TECHNIQUE: Chest CT without contrast. Coronal and Sagittal reconstruction series were generated. One or more dose reduction techniques were used (e.g., Automated exposure control, adjustment of the mA and/or kV according to patient size, use of iterative reconstruction technique RADIATION DOSE SUMMARY: CTDlvol: 18.6 mGy DLP: 660.17 mGycm COMPARISON: 01/31/2024 FINDINGS: Note that evaluation of the vasculature, tayla, and remaining soft tissues is limited in the absence of IV contrast. Heart/pericardium: Severe three-vessel coronary atherosclerosis and/or stents. Trace aortic annular calcification. Aorta: Trace atherosclerosis. Two-vessel arch, normal variant. Pulmonary arteries: Normal in caliber. Lymph nodes: Similar minimally enlarged 12 mm precarinal node, presumably reactive given stability. Borderline subcarinal node 10 mm short axis, also similar. Lungs/pleura: RIGHT upper lobe nodule measuring 8 x 6 mm unchanged from 10/23/2022 (series 4 image 39). Grossly similar adjacent punctate micronodules up to 2 mm. Minimal atelectasis/scarring. Airways: Unremarkable. Chest wall: Similar RIGHT mastectomy. Upper abdomen: Small hiatal hernia containing mostly fat.. Musculoskeletal: Mild degenerative findings. Similar punctate sclerotic presumed bone island in the RIGHT humeral head. CT/Chest without Contrast IMPRESSION: 1. 7 mm average axial diameter RIGHT upper lobe nodule essentially unchanged fr om 10/23/2022. 2. Additional description as above. Reading Location: [id number]
--- OUTSIDE RECORDS SUMMARY | 2025-01-24 08:35 | XMS RPT_ITS | CCD ---
Author Organization [facility] Care Team Providers Care Tailman Name Role Phone Winifred Kennedy Chris Unavailable Brent Winifred Y Unavailable KennedyWinifred Y Unavailable Kasandra HERRERA, Oriana Alonzo Unavailable Unavailable Danial Dempsey Primary Care Provider Danial Dempsey Primary Care Provider Danial Dempsey Primary Care Provider Danial Dempsey Primary Care Provider Roselyn KING, Danial Primary Care Provider [phone] Danial Dempsey MD Primary Care Provider [phone] Roselyn KING, Danial Primary Care Provider [phone] Danial Dempsey MD Primary Care Provide r Danial Dempsey MD Primary Care Provide r Danial Dempsey MD Primary Care Provide r Danial Dempsey Unavailable Roselyn KING, Danial Primary Care Provider [phone] Danial Dempsey MD Primary Care Provider [phone] Danial Dempsey MD Primary Care Provide r Danial Dempsey Primary Care Unavailable PROVIDER, UNKNOWN Referring Unavailable Danial Dempsey Attending Unavailable PROVIDER, UNKNOWN Referring Unavailable Danial Dempsey Primary Care Unavailable Danial Dempsey Attending Unavailable PROVIDER, UNKNOWN Referring Unavailable Teston, Marissa Attending Unavailable Roselyn, Danial Primary Care Unavailable [...] Referring Unavailable Roselyn, Danial Primary Care Unavailable [facility] Doctor, Out of Primary Care Provider Unamilad ferrara [facility] Doctor, Out of Referring Provider Unavailab PRADIP Greenfield Attending Provider Dr. Addy Pardo Attending Provider Roselyn KING, Danial Primary Care Provider Danial Dempsey MD Primary Care Provide r Danial Dempsey MD Primary Care Provider PRADIP Stuart Referring Provider PRADIP Stuart Other Provider Dr. Addy Pardo Attending Provider Teston, Marissa Admitting Unavailable Marissa Loredo Attending Unavailable Roselyn, Dr. Danial Casey Referring Patricia vailable Roselyn, Dr. Danial Casey Primary Care Patricia vailable Dr. Addy Pardo Attending Provider PRADIP Stuart Referring Provider DANIAL DEMPSEY Primary Care Provider Dr. Addy Pardo Referring Provider Dr. Addy Pardo Other Provider DANIAL DEMPSEY Primary Care Provider Dr. Addy Pardo Attending Provider Dr. Addy Pardo Referring Provider Dr. Addy Pardo Other Provider PRADIP Stuart Referring Provider PRADIP Stuart Other Provider Danial Dempsey MD Primary Care Provide r Siddhartha KING, Rajan Unavailable Danial Dempsey MD Primary Care Provide r Siddhartha KING, Rajan Unavailable RAJAN CARL Attending Unavailable RAJAN CARL Referring Unavailable DANIAL DEMPSEY Primary Care Unavail opal Dempsey MD, Dr. Danial Nix Primary Care Provider Caroline Stuart Attending Provider Caroline Stuart Referring Provider Char KING, Dr. Daly Attending Provider Dr. Addy Pardo MD Referring Provider Dr. Danial Dempsey MD Referring Provider Roselyn KING, Dr. Danial Nix Primary Care Provider Caroline Stuart Attending Provider Roselyn KING, Dr. Danial Nix Primary Care Provider Char KING, Dr. Daly Attending Provider Dr. Addy Pardo MD Referring Provider CELINA GARCIA Attending Unavailable CELINA GARCIA Referring Unavailable DANIAL DEMPSEY Primary Care Unavail able CELINA GARCIA Referring Unavailable ROSELYN, DANIAL CASEY Primary Care Unavail able CARLOS HERNANDEZ Attending Unavailable MARY, CARLOS Referring Unavailable ROSELYN, DANIAL CASEY Primary Care Unavail able MARY, CARLOS Referring Unavailable DANIAL DEMPSEY Primary Care Unavail able Danial Dempsey Primary Care Unavailable Char, Addy Attending Unavailable Char, Addy Referring Unavailable Char, Addy Referring Unavailable Roselyn, Danial L Primary Care Unavailable Char, Rossiter Attending Unavailable Roselyn, Danial L Primary Care Unavailable Char, Rossiter Referring Unavailable Char, Rossiter Attending Unavailable Char, Rossiter Referring Unavailable Roselyn, Danial L Primary Care Unavailable Char, Rossiter Attending Unavailable Roselyn, Danial L Referring Unavailable Roselyn, Danial L Primary Care Unavailable Caroline Stuart Attending Unavail able Roselyn, Danial L Primary Care Unavailable Roselyn, Danial L Referring Unavailable Elli PACaroline Attending Unavail able Roselyn, Danial L Primary Care Unavailable Roselyn, Danial L Referring Unavailable Char, Addy Attending Unavailable Roselyn, Danial L Primary Care Unavailable Char, Addy Attending Unavailable Char, Rossiter Referring Unavailable Roselyn, Danial L Primary Care Unavailable Elli MOSELEY, Caroline M Referring Unavail able Caroline Stuart Attending Unavail able Roselyn, Danial L Primary Care Unavailable Char, Addy Attending Unavailable Char, Addy Referring Unavailable Roselyn, Danial L Primary Care Unavailable Char, Addy Attending Unavailable Char, Addy Referring Unavailable Roselyn, Danial L Primary Care Unavailable Char, Addy Attending Unavailable Char, Addy Referring Unavailable Roselyn, Danial L Primary Care Unavailable Char, Addy Referring Unavailable Char, Rossiter Attending Unavailable Roselyn, Danial L Referring Unavailable Roselyn, Danial L Primary Care Unavailable Marcial HEREDIA, Neal Livingston Attending Unavailable Roselyn, Danial L Primary Care Unavailable Char, Rossiter Referring Unavailable Char, Rossiter Attending Unavailable Char, Addy Referring Unavailable Roselyn, Danial L Primary Care Unavailable Char, Addy Attending Unavailable Denis Osuna MD Primary Care Provider [phone] ROSELYN, DANIAL Primary Care Unavailable ROSELYN, DANIAL Attending Unavailable ROSELYN, DANIAL Referring Unavailable ROSELYN, DANIAL Primary Care Unavailable ROSELYN, DANIAL Primary Care Unavailable ROSELYN, DANIAL Attending Unavailable ROSELYN, DANIAL Attending Unavailable ROSELYN, DANIAL Primary Care Unavailable ROSELYN, DANIAL Primary Care Unavailable ROSELYN, DANIAL Attending Unavailable ROSELYN, DANIAL Referring Unavailable ROSELYN, DANIAL Attending Unavailable ROSELYN, DANIAL Primary Care Unavailable ROSELYN, DANIAL Referring Unavailable ROSELYN, DANIAL Primary Care Unavailable ROSELYN, DANIAL Attending Unavailable ROSELYN, DANIAL Referring Unavailable ROSELYN, DANIAL Attending Unavailable ROSELYN, DANIAL Primary Care Unavailable ROSELYN, DANIAL Attending Unavailable ROSELYN, DANIAL Primary Care Unavailable ROSLEYN, DANIAL Attending Unavailable ROSELYN, DANIAL Referring Unavailable ROSELYN, DANIAL Primary Care Unavailable ROSELYN, DANIAL Attending Unavailable ROSELYN, DANIAL Referring Unavailable ROSELYN, DANIAL Primary Care Unavailable ROSELYN, DANIAL Attending Unavailable ROSELYN, DANIAL Referring Unavailable ROSELYN, DANIAL Primary Care Unavailable ROSELYN, DANIAL Primary Care Unavailable ROSELYN, DANIAL Attending Unavailable ROSELYN, DANIAL Primary Care Unavailable ROSELYN, DANIAL Attending Unavailable ROSELYN, DANIAL Referring Unavailable ROSELYN, DANIAL Attending Unavailable ROSELYN, DANIAL Primary Care Unavailable ROSELYN, DANIAL Referring Unavailable ROSELYN, DANIAL Primary Care Unavailable ROSELYN, DANIAL Attending Unavailable ROSELYN, DANIAL Referring Unavailable ROSELYN, DANIAL Referring Unavailable ROSELYN, DANIAL Attending Unavailable ROSELYN, DANIAL Primary Care Unavailable ROSELYN, DANIAL Referring Unavailable ROSELYN, DANIAL Attending Unavailable ROSELYN, DANIAL Primary Care Unavailable ROSELYN, DANIAL Attending Unavailable ROSELYN, DANIAL Referring Unavailable ROSELYN, DANIAL Primary Care Unavailable PFEFFERLE, JUAN Attending Unavailable DENIS OSUNA Primary Care Unavailable ROSELYN, DANIAL Attending Unavailable ROSELYN, DANIAL Referring Unavailable ROSELYN, DANIAL Primary Care Unavailable ROSELYN, DANIAL Primary Care Unavailable ROSELYN, DANIAL Attending Unavailable ROSELYN, DANIAL Referring Unavailable ROSELYN, DANIAL Referring Unavailable ROSELYN, DANIAL Attending Unavailable ROSELYN, DANIAL Primary Care Unavailable ROSELYN, DANIAL Referring Unavailable ROSELYN, DANIAL Attending Unavailable ROSELYN, DANIAL Primary Care Unavailable ROSELYN, DANIAL Primary Care Unavailable ROSELYN, DANIAL Attending Unavailable ROSELYN, DANIAL Referring Unavailable ROSELYN, DANIAL Primary Care Unavailable ROSELYN, DANIAL Attending Unavailable ROSELYN, DANIAL Referring Unavailable ROSELYN, DANIAL Referring Unavailable ROSELYN, DANIAL Attending Unavailable ROSELYN, DANIAL Primary Care Unavailable ROSELYN, DANIAL Attending Unavailable ROSELYN, DANIAL Primary Care Unavailable ROSELYN, DANIAL Referring Unavailable PFEFFERLE, JUAN Referring Unavailable DENIS OSUNA Primary Care Unavailable PFEFFERLE, JUNA Attending Unavailable DENIS OSUNA Primary Care Unavailable JUAN VELASCO Referring Unavailable DANIAL DEMPSEY Primary Care Unavailable DANIAL DEMPSEY Attending Unavailable DANIAL DEMPSEY Referring Unavailable DANIAL DEMPSEY Primary Care Unavailable DANIAL DEMPSEY Attending Unavailable DANIAL DEMPSEY Referring Unavailable Roselyn KING, Dr. Danial Nix Primary Care Physicia n Dr. Danial Dempsey MD Referring Provider [facility] COOKER SULFITENeal Arzola Attending Physician [phone] Medications Current Medications Medication Drug Class(es) Dates Sig (Normalized) Sig (Original) acetaminophen 325 mg / oxyCODONE hydrochloride 5 mg oral tablet (2 sources) Opioid Agonist Start: 09-13-2024 End: 09-15-2024 take 1 tablet by mouth every six hours as needed for pain oxyCODONE-acetami nophen (Percocet) 5-325 MG tablet Indications: Pain, dental Take 1 tablet by mouth every 6 hours as needed for severe pain (7-10) for up to 2 days. 8 tablet 09/13/2024 09/15/2024 Active amoxicillin 500 mg oral capsule (20 sources) Penicillin-class Antibacterial Start: 12-03-2024 take 4 capsules by mouth every hour as needed Amoxicillin 500 mg capsule Active 2000 mg PO .COMPLEX as needed December 02, 2024 11:00pm 2,000 mg orally 1 hour prior to dental visits PRN; Complies with drug therapy Start: 09-13-2024 End: 09-23-2024 take 1 tablet by mouth twice daily amoxicillin (Amoxil) 875 MG tablet Take 1 tablet (875 mg) by mouth 2 times daily for 10 days. 20 tablet 09/13/2024 09/23/2024 Start: 06-09-2020 End: 06-03-2024 take 4 capsules by mouth every hour amoxicillin (AMOXIL) 500 mg capsule Indications: S/P total knee replacement, left TAKE FOUR CAPSULES BY MOUTH one hour prior TO dental procedure 4 capsule 2 06/03/2024 Active Comment on above: Please take 4 pills by mouth 1 hour prior to dental appointment Take 4 tabs(2grams) one hour prior to dental procedure. Take 4 capsules by m out 1 hour prior to dental cleaning ascorbic acid 500 mg oral tablet (5 sources) Vitamin C Start: 12-03-2024 take 1 tablet by mouth once daily Ascorbic Acid (Vitamin C) 500 mg tablet Active 500 mg PO daily December 02, 2024 11:00pm Complies with drug therapy take 1 capsule by [facility] once daily ascorbic acid (Vitamin C) 500 mg ER capsule Take 1 capsule (500 mg) by mouth once daily. Active End: 03-15-2020 take 500 mg by mouth once daily Ascorbic Acid (VITAMIN C) chew Take 500 mg by mouth once daily. 03/15/2020 Discontinued Comment on above: Take 500 mg by mouth once daily. ascorbic acid 226 mg / beta carotene [id number] unt / cuprous oxide 0.8 mg / dl-alpha tocopheryl acetate 200 unt / zinc oxide 34.8 mg oral capsule (1 source) Vitamin C Start: 12-03-2024 Vitamins A,C,A-Utnq-Plaanc (Preservision Areds) 4,296 mcg-226 mg-90 mg capsule Active 1 NMA PO TWICE A DAY December 02, 2024 11:00pm Complies with drug therapy aspirin 81 mg delayed release oral tablet (20 sources) Platelet Aggregation Inhibitor, Nonsteroidal Anti-inflammatory Drug Start: 08-26-2024 take 1 tablet by mouth once daily aspirin, enteric coated (ECOTRIN LOW STRENGTH) 81 mg EC tablet Take 1 tablet by mouth once daily. 08/26/2024 Active Start: 11-29-2023 End: 12-25-2023 take 1 tablet by mouth at breakfast Aspirin 81 mg Tablet,Delayed Release (Dr/Ec) Active 81 mg PO WITH BREAKFAST November 29, 2023 12:00am Start: 12-27-2020 End: 05-13-2021 take 1 tablet by mouth twice daily aspirin, enteric coated (ECOTRIN LOW STRENGTH) 81 mg EC tablet Take 1 tablet by mouth twice daily for 28 days. 56 tablet 12/27/2020 05/13/2021 Discontinued Start: 03-15-2020 End: 07-22-2020 take 1 tablet by mouth twice daily aspirin, enteric coated (ECOTRIN LOW STRENGTH) 81 mg EC tablet Take 1 tablet by mouth twice daily. 60 tablet 03/15/2020 07/22/2020 Discontinued Comment on above: Take 1 tablet by [facility] twice daily for 28 days. cholecalciferol 0.125 mg oral capsule (20 sources) Vitamin D Start: 04-13-19 take 1 capsule by mouth once daily Cholecalciferol (Vitamin D3) 125 mcg (5,000 unit) capsule Active 125 ug PO DAILY April 13, 2023 12:00am supplement Complies with drug therapy Start: 02-24-2020 End: 02-24-2021 take 1 capsule by mouth once daily Cholecalciferol (Vitamin D3) 50 mcg (2,000 unit) capsule Discontinued 50 ug PO DAILY February 24, 2020 12:00am February 24, 2021 9:15am Start: 05-12-2016 take 1 tablet by amy th once daily VITAMIN D 2000 UNIT TABS (5000 iu)One tablet by mouth daily CHOLECALCIFEROL [id number] Oriana Slaughter RN cyanocobalamin, vitamin B-12 , (VITAMIN B-12 ORAL) (13 sources) cyanocobalamin, vitamin B-12, (VITAMIN B-12 ORAL) Take by mouth. Active cyanocobalamin, vitamin B-12, (VITAMIN B-12 ORAL) Take by mouth. 0 Active Comment on above: Take by mouth. famotidine 20 mg oral tablet (20 sources) Histamine-2 Receptor Antagonist Start: 09-15-2022 take 1 tablet by mouth at bedtime Famotidine 20 mg tablet Active 20 mg PO AT BEDTIME December 02, 2024 11:00pm Complies with drug therapy Fish Oils (20 sources) take 1 capsule by mouth once daily omega-3 (fish oil) 1400 MG capsule Take 1,000 mg by mouth daily. Active furosemide 20 mg oral tablet (20 sources) Loop Diuretic Start: 02-27-2024 furosemide (Lasix) 20 MG tablet TAKE 1-2 TABLETS DAILY NEEDED FOR DECREASING EDEMA 180 tablet 3 02/27/2024 Active Start: 03-16-2023 End: 02-27-2024 furosemide (Lasix) 20 MG tab let 20-40 mg daily as needed for decreasing edema 180 tablet 3 03/16/2023 02/27/2024 Discontinued Start: 04-14-2022 take 40 mg by mouth twice matthew y Furosemide Active 40 MG PO TWICE A DAY April 14, 2022 9:10am Start: 03-07-2022 End: 05-26-2023 take 2 tablets by mouth twice daily Furosemide 20 mg tablet Discontinued 40 mg PO TWICE A DAY April 14, 2022 9:10am April 13, 2023 8:37am Start: 09-23-2021 furosemide (LA SIX) 20 MG tablet Indications: Localized edema , Right ventricular (RV) hypertension 3 tablets (60 mg) bid for edema 540 tablet 1 09/23/2021 Active Start: 02-24-2020 End: 04-14-2022 take 1 tablet by mouth once daily Furosemide 20 mg tablet Discontinued 20 mg PO DAILY February 24, 2020 12:00am April 14, 2022 9:11am Start: 07-28-2017 End: 02-19-2019 take 1 tablet by mouth once daily Furosemide 20 mg tablet Discontinued 20 mg PO daily 90 90 0 July 27, 2017 11:00pm February 19, 2019 2:15pm Start: 05-12-2016 End: 06-03-2024 take 1 tablet by mouth twice daily Furosemide 20 mg tablet Discontinued 20 mg PO TWICE A DAY April 13, 2023 8:35am June 03, 2024 8:37am water pill Start: 05-12-2016 take 1 tablet by amy th once daily FUROSEMIDE 20 MG TABS One tablet by mouth daily FUROSEMIDE [id number] Oriana Slaughter RN Comment on above: Take 20 mg by mouth twice daily. Green Tea, Camillia sinensis, (GREEN TEA EXTRACT) 150 MG CAPS (17 sources) take 1 capsule by mouth once daily Green Tea, Camillia sinensis, (GREEN TEA EXTRACT) 150 MG CAPS Take by mouth daily 0 Active ipratropium bromide 0.021 mg/actuat metered dose nasal spray (20 sources) Anticholinergic Start: 12-04-19 Ipratropium [place] 21 mcg (0.03 %) spray,non-aerosol Active 2 NMA INTRANASAL Q12H as needed December 02, 2024 11:00pm Complies with drug therapy Start: 04-10-2024 take 2 spray(s) nasa l route every twelve hours as needed for rhinitis ipratropium (Atrovent) 0.03 % nasal spray Indications: Acute rhinitis USE 2 SPRAYS IN EACH NOSTRIL EVERY 12 HOURS NEEDED FOR RHINITIS 30 mL 2 04/10/2024 Active Start: 12-13-2023 End: 04-10-2024 take 2 spray(s) nasal route every twelve hours as needed for rhinitis ipratropium (Atrovent) 0.03 % nasal spray Indications: Acute rhinitis Administer 2 sprays into each nostril every 12 hours as needed for rhinitis. PRN 30 mL 2 12/13/2023 04/10/2024 Discontinued Start: 09-30-2021 ipratropium (A trovent) 21 mcg (0.03 %) nasal spray 2 sprays. 09/30/2021 Active Start: 09-30-2021 End: 12-13-2023 ipratropium (Atrovent) 0.03 % nasal spray 2 sprays every 12 hours as needed. PRN 09/30/2021 12/13/2023 Discontinued (Reorder) Start: 05-28-2020 ipratropium (A TROVENT) 0.03 % nasal spray Indications: Non-seasonal allergic rhinitis, unspecified trigger 2 sprays by Nasal route every 12 hours 1 Bottle 3 05/28/2020 Active Start: 06-18-2017 ipratropium (A TROVENT) 0.03 % nasal spray 2 sprays by Nasal route every 12 hours 1 Bottle 3 11/29/2018 Active Ipratropium Brom felix (ATROVENT) 0.03 % nasal spray Use 2 Sprays in the nose as needed. Active Comment on above: Use 2 Sprays in the nose every 12 hours. Use 2 Sprays in the nose as needed. magnesium oxide 400 mg oral tablet (20 sources) take 1 tablet by mouth every twenty-four hours as needed magnesium oxide (Mag-Ox) 400 MG tablet Take 400 mg by mouth Daily as needed (CRAMPS). Active mecobalamin (4 sources) Start: 04-13-2023 take 1 tablet by mouth once daily Mecobalamin (Vitamin B12) 5,000 mcg tablet,chewable Active 5000 ug PO DAILY April 13, 2023 12:00am supplement Complies with drug therapy Start: 04-13-2023 take 1 tablet by amy once daily Mecobalamin (Vitamin B12) 5,000 mcg tablet,chewable Active 5000 ug PO DAILY April 13, 2023 1:00am metaxalone 800 mg oral tablet (20 sources) Muscle Relaxant Start: 05-12-2016 End: 03-07-2025 take 1 tablet by mouth twice daily as needed for muscle spasms Metaxalone 800 mg tablet Active 800 mg PO TWICE A DAY as needed for muscle spasm December 02, 2024 11:00pm Complies with drug therapy Comment on above: Take 800 mg by mouth twice daily as needed for Pain. 24 hr metoprolol succinate 25 mg extended release oral tablet (20 sources) beta-Adrenergic Bryan Start: 08-26-2024 take 1 tablet by mouth once daily metoprolol succinate ER (TOPROL XL) 25 mg 24 hr tablet Take 1 tablet by mouth once daily. 90 tablet 08/26/2024 Active Start: 11-29-2023 End: 12-25-2023 take 1 tablet by mouth twice daily Metoprolol Tartrate 25 mg tablet Active 25 mg PO TWICE A DAY 180 3 December 25, 2023 9:52am Complies with drug therapy Multiple Vitamins-Minerals (MULTIVITAMIN ADULTS 50+ PO) (17 sources) take 1 tablet by mouth once daily Multiple Vitamins-Minerals (MULTIVITAMIN ADULTS 50+ PO) Take 1 tablet by mouth daily 0 Active MULTIPLE VITAMINS-MINERALS P O (20 sources) take 1 tablet by mouth in the morning MULTIPLE VITAMINS-MINERALS PO Take 1 tablet by mouth in the morning. Active take 1 tablet by mouth in the mo rning MULTIPLE VITAMINS-MINERALS PO Take 1 tablet by mouth in the morning. 0 Active multivit 32-kftn-yktaoi 6-dh a 29 mg iron-1 mg -300 mg capsule (1 source) take 1 capsule by mouth once daily multivit 64-snbk-jokrqz 6-dha 29 mg iron-1 mg -300 mg capsule Take 1 capsule by mouth once daily. Active Multivitamin capsule (13 sources) take 1 capsule by mouth once daily Multivitamin capsule Take 1 capsule by mouth once daily. Active take 1 capsule by mouth once gelacio ly Multivitamin capsule Take 1 capsule by mouth once daily. 0 Active Comment on above: Take 1 capsule by mo [facility] once daily. Multivitamin preparation (4 sources) Start: 02-24-2020 take 1 tablet by mouth once daily Multivitamin Active 1 TABLET PO DAILY February 24, 2020 12:00am Start: 02-24-2020 take 1 tablet by amy once daily Multivitamin Active 1 TABLET PO DAILY February 24, 2020 1:00am Multivitamin tablet (4 sources) Start: 02-24-2020 Multivitamin t ablet Active 1 {tbl} PO DAILY February 24, 2020 12:00am supplement Complies with drug therapy Start: 02-24-2020 Multivitamin t ablet Active 1 {tbl} PO DAILY February 24, 2020 1:00am bzikyapsmtin-Ir-vtoe-mineral s (Tab-A-Lu Womens) 27-0.4 mg tablet (2 sources) End: 04-18-2024 take 1 tablet by mouth once daily hwcjhwlsjtdv-Vw-oxyo-minerals (Tab-A-Lu Womens) 27-0.4 mg tablet Take 1 tablet by mouth once daily. 04/18/2024 Discontinued (Duplicate order) take 1 tablet by amy th once daily tihmcmfmrltd-Kq-fndb-minerals (Tab-A-Vit e Womens) 27-0.4 mg tablet Take 1 tablet by mouth once daily. 0 Active [place]-3 Fatty Acids (4 sources) Start: 02-24-2020 take 1000 mg by mout h once daily [place]-3 Fatty Acids Active 1000 MG PO DAILY February 24, 2020 12:00am Start: 02-24-2020 take 1000 mg by mouth once gelacio ly [place]-3 Fatty Acids Active 1000 MG PO DAILY February 24, 2020 1:00am [place]-3 Fatty Acids (FISH OIL EXTRA STRENGTH PO) (17 sources) take 200 mg by mouth once daily [place]-3 Fatty Acids (FISH OIL EXTRA STRENGTH PO) Take 200 mg by mouth daily 0 Active tclyf-1n-yxv-epa-fish oil 1,000-1,400 mg capsule (1 source) zwnuj-2r-mdq-epa -fis h oil 1,000-1,400 mg capsule Take 1,000 mg by mouth once daily. Active ondansetron 4 mg oral tablet (20 sources) Serotonin-3 Receptor Antagonist Start: take 1 tablet by mouth every eight hours as needed for nausea and nausea ondansetron (ZOFRAN) 4 mg tablet Indications: Nausea Take 1 tablet by mouth every 8 hours as needed for nausea/vomiting (for nausea.). 30 tablet 2 05/13/2021 Active Start: 05-03-2020 take 1 tablet by amy th three times daily as needed for nausea ondansetron (ZOFRAN) 4 MG tablet Indications: Nausea Take 1 tablet by mouth 3 times daily as needed for Nausea or Vomiting 60 tablet 1 05/03/2020 Active Comment on above: Take 1 tablet by amy th every 8 hours as needed for nausea/vomiting (for nausea.). oxyCODONE hydrochloride 5 mg oral tablet (3 sources) Opioid Agonist Start: 01-22-20 End: 05-14-19 take 1 tablet by mouth every six hours as needed oxyCODONE IR (ROXICODONE) 5 mg immediate release tablet Indications: Status post total knee replacement, left Take 1-2 tablets by mouth every 6 hours as needed for pain. 42 tablet 0 02/03/2021 05/13/2021 Discontinued Comment on above: Take 1-2 tablets by mouth every 6 hours as needed for pain. pantoprazole 40 mg delayed release oral tablet (20 sources) Proton Pump Inhibitor Start: 03-15-19 End: 07-23-19 take 1 tablet by mouth once daily pantoprazole DR (PROTONIX) 20 mg tablet Take 1 tablet by mouth once daily for 14 days. 14 tablet 03/15/2020 07/22/2020 Discontinued Start: 07-28-2017 End: 11-27-2022 pantoprazole (ProtoNix) 40 M G EC tablet TAKE 1 TABLET DAILY 90 tablet 3 11/27/2022 Active Start: 05-12-2016 take 1 tablet by amy once daily PROTONIX 40 MG TBEC One tablet by mouth daily PANTOPRAZOLE SODIUM [id number] Oriana Slaughter RN Comment on above: Take 40 mg by mouth once daily. perflutren lipid microspheres (DEFINITY) injection 1.65 mg (1 source) Start: 09-12-2021 End: 09-15-2021 perflutren lipid microspheres (DEFINITY) injection 1.65 mg potassium chloride 10 meq extended release oral capsule (20 sources) Start: 02-24-2020 take 1 capsule by mouth once daily Potassium Chloride 10 mEq capsule, extended release Active 10 meq PO DAILY February 24, 2020 12:00am supplement Complies with drug therapy Start: 12-16-2017 End: 11-27-2024 take 1 capsule by mouth twice daily potassium chloride ER (Micro-K) 10 MEQ ER capsule Indications: Diuretic-induced hypokalemia Take 1 capsule (10 mEq) by mouth 2 times daily. Do not crush or chew. 180 capsule 3 11/28/2023 Active Start: 07-28-2017 End: 02-19-2019 take 1 capsule by mouth once daily Potassium Chloride 10 mEq capsule, extended release Discontinued 10 meq PO daily 90 90 0 July 27, 2017 11:00pm February 19, 2019 2:15pm Start: 05-12-2016 take 1 tablet by amy th once daily KLOR-CON 20 MEQ PACK One tablet by mouth daily POTASSIUM CHLORIDE [id number] Oriana Slaughter RN Start: 05-12-2016 take 1 tablet by amy th twice daily KLOR-CON 10 10 MEQ CR-TABS One tablet by mouth twice daily POTASSIUM CHLORIDE [id number] Addy Pardo MD Comment on above: Take 10 mEq by mouth twice daily. rosuvastatin calcium 40 mg oral tablet (20 sources) HMG-CoA Reductase Inhibitor Start: End: take 1 tablet by mouth once daily Rosuvastatin 40 mg tablet Active 40 mg PO daily December 03, 2024 8:07am Complies with drug therapy Start: 07-28-2017 End: 04-13-2023 take 1 tablet by mouth once daily Rosuvastatin 20 mg tablet Discontinued 20 mg PO daily 90 90 0 July 27, 2017 11:00pm April 13, 2023 8:56am Comment on above: Take 20 mg by mouth daily at bedtime. Semaglutide (6 sources) Start: 12-03-2024 Semaglutide (Ozempic) 0.25 mg or 0.5 mg (2 mg/3 mL) pen injector Active 0.25 mg SC EVERY WEEK 3 0 December 02, 2024 11:00pm December 30, 2024 12:00am for 4 weeks Complies with drug therapy Start: 10-15-2024 End: 11-12-2024 Semaglutide (Ozempic) 0.25 m g or 0.5 mg (2 mg/3 mL) pen injector Discontinued 0.25 mg SC EVERY WEEK 3 0 October 15, 2024 2:50pm November 10, 2024 11:00pm November 11, 2024 11:11pm for 4 weeks Start: 09-10-2024 End: 10-08-2024 Semaglutide (Ozempic) 0.25 m g or 0.5 mg (2 mg/3 mL) pen injector Discontinued 0.25 mg SC EVERY WEEK 3 September 10, 2024 7:24am October 06, 2024 11:00pm October 07, 2024 11:06pm for 4 weeks Start: 07-17-2024 End: 08-14-2024 Semaglutide (Ozempic) 0.25 m g or 0.5 mg (2 mg/3 mL) pen injector Discontinued 0.25 mg SC EVERY WEEK 3 July 17, 2024 3:48pm August 12, 2024 11:00pm August 13, 2024 11:06pm for 4 weeks Start: 06-29-2024 End: 07-17-2024 Semaglutide (Ozempic) 0.25 m g or 0.5 mg (2 mg/3 mL) pen injector Discontinued 0.25 mg SC EVERY WEEK June 28, 2024 11:00pm July 25, 2024 11:00pm July 17, 2024 3:48pm for 4 weeks Start: 06-29-2024 Semaglutide (O zempic) 0.25 mg or 0.5 mg (2 mg/3 mL) pen injector Active 0.25 mg SC EVERY WEEK 3 June 29, 2024 12:00am July 26, 2024 12:00am for 4 weeks semaglutide 2 mg/dose (8 mg/3 mL) pen injector (1 source) Start: 03-07-2024 End: 03-07-2025 inject 2 mg by subcutaneous injection every week semaglutide 2 mg/dose (8 mg/3 mL) pen injector Inject 2 mg under the skin 1 (one) time per week. 03/07/2024 03/07/2025 Active tamsulosin hydrochloride 0.4 mg oral capsule (20 sources) alpha-Adrenerg ic Bryan Start: 07-30-2020 End: 03-25-2024 tamsulosin (Flomax) 0.4 MG 24 hr capsule TAKE 1 CAPSULE DAILY 90 capsule 3 04/07/2024 Active Comment on above: Take 0.4 mg by mouth once daily. Turmeric extract (2 sources) TURMERIC ORAL Take by mouth. Active TURMERIC ORAL Ta ke by mouth. 0 Active Turmeric Root Extract 500 mg tablet (1 source) Start: 12-03-2024 take 1 tablet by mouth once daily Turmeric Root Extract 500 mg tablet Active 1000 mg PO daily December 02, 2024 11:00pm Complies with drug therapy ubiquinone 200 mg oral capsule (4 sources) take 1 tablet by mouth once daily Coenzyme Q10 (COQ10) 200 MG CAPS Take 1 tablet by mouth daily 0 Active vitamin b12 1 mg oral tablet (20 sources) Vitamin B12 take 2 tablets by mouth in the morning cyanocobalamin (Vitamin B-12) 1000 MCG tablet Take 2,000 mcg by mouth in the morning. Active take 0.5 tablet by m outh once daily cyanocobalamin (Vitamin B-12) 1,000 mcg tablet Take 0.5 tablets (500 mcg) by mouth once daily. Active End: 04-18-2024 cyanocobalamin, vitamin B-12 , 1,000 mcg/mL drops Take by mouth. 04/18/2024 Discontinued (Duplicate order) Completed/Discontinued Medications Medication Drug Class(es) Dates Sig (Normalized) Sig (Original) acetaminophen 500 mg oral tablet (3 sources) Start: 12-27-2020 End: 05-13-2021 take 2 tablets by mouth every eight hours as needed acetaminophen (TYLENOL EXTRA STRENGTH) 500 mg tablet Take 2 tablets by mouth every 8 hours as needed for pain. 60 tablet 12/27/2020 05/13/2021 Discontinued Comment on above: Take 2 tablets by [facility] every 8 hours as needed for pain. acetaminophen 325 mg / HYDROcodone bitartrate 5 mg oral tablet (1 source) Opioid Agonist Start: 04-07-2020 End: 04-14-2020 take 1 tablet by mouth every four hours as needed for pain HYDROcodone-acetam inophen (NORCO) 5-325 mg per tablet Indications: S/P total knee replacement, right Take 1 tablet by mouth every 4 hours as needed for Pain for up to 7 days. 42 tablet 04/07/2020 04/14/2020 Discontinued atomoxetine 40 mg oral capsule (8 sources) Norepinephrine Reuptake Inhibitor Start: 05-12-2016 End: 05-17-2016 take 1 tablet by mouth once daily STRATTERA 40 MG CAPS One tablet by mouth daily ATOMOXETINE HCL [id number] Addy Pardo MD cholecalciferol, vitamin D3, (VITAMIN D3 ORAL) (2 sources) End: 03-15-2020 take 2000 [IU] by mouth once daily cholecalciferol, vitamin D3, (VITAMIN D3 ORAL) Take 2,000 Units by mouth once daily. 03/15/2020 Discontinued take 2000 [IU] by mouth once gelacio ly cholecalciferol, vitamin D3, (VITAMIN D3 ORAL) Take 2,000 Units by mouth once daily. 0 Active Comment on above: Take 2,000 Units by mouth once daily. chondroitin sulfates 200 mg / glucosamine hydrochloride 250 mg oral tablet (20 sources) Start: 02-24-2020 End: 04-14-2022 Glucosamine-Chondroitin (Osteo Bi-Flex) 250-200 mg tablet Discontinued 2 {tbl} PO DAILY February 24, 2020 12:00am April 14, 2022 9:10am give after food/meal Start: 05-12-2016 take 1 tablet by amy th once daily GLUCOSAMINE-CHONDROITIN CAPS One tablet by mouth daily GLUCOSAMINE-CHONDROITIN CAPS [id number] Oriana Slaughter RN End: 02-01-2023 take 1 tablet by mouth in the morning Glucosamine-Chondroitin 500-250 MG capsule Take 1 tablet by mouth in the morning. 0 02/01/2023 Discontinued (Therapy completed) take 1 tablet by amy th once daily Glucosamine-Chondroitin 500-250 MG CAPS Take 1 tablet by mouth daily 0 Active ubidecarenone 200 mg oral capsule (20 sources) Start: 02-24-2020 End: 02-24-2021 Coenzyme Q10 (Co Q-10) 200 m g capsule Discontinued 200 mg PO DAILY February 24, 2020 12:00am February 24, 2021 9:15am Start: 05-12-2016 take 1 tablet by amy th once daily CO Q-10 100 MG CAPS One tablet by mouth daily COENZYME Q10 [id number] Oriana Slaughter RN take 1 tablet by amy th in the morning coenzyme Q-10 200 MG capsule Take 1 tablet by mouth in the morning. Active dapagliflozin 10 mg oral tablet (4 sources) Sodium-Glucose Cotransporter 2 Inhibitor Start: 06-29-2024 End: 10-15-2024 take 1 tablet by mouth once daily Dapagliflozin Propanediol (Farxiga) 10 mg tablet Discontinued 10 mg PO DAILY 11 01September 10, 2024 7:25am October 15, 2024 2:52pm 12 hr dextromethorphan hydrobromide 60 mg / guaiFENesin 1200 mg extended release oral tablet (2 sources) Uncompetitive D-nkpsra-K-aspartat e Receptor Antagonist, Sigma-1 Agonist End: 02-27-2020 take 1 tablet by mouth every twelve hours as needed Dextromethorphan-g uaiFENesin (MUCINEX DM) 60-1,200 mg tab ER 12 hr Take 1 tablet by mouth every 12 hours as needed. 02/27/2020 Discontinued Comment on above: Take 1 tablet by amy every 12 hours as needed. docusate sodium 100 mg oral capsule (4 sources) Start: 12-27-2020 End: 05-13-2021 take 1 capsule by mouth twice daily docusate sodium (COLACE) 100 mg capsule Take 1 capsule by mouth twice daily. 15 capsule 12/27/2020 05/13/2021 Discontinued Start: 03-15-2020 End: 07-22-2020 take 1 capsule by mouth every twelve hours as needed docusate sodium (COLACE) 100 mg capsule Take 1 capsule by mouth twice daily as needed for Constipation. 20 capsule 03/15/2020 07/22/2020 Discontinued Comment on above: Take 1 capsule by mo [facility] twice daily. enalapril maleate 5 mg oral tablet (20 sources) Angiotensin Converting Enzyme Inhibitor Start: End: take 1 tablet by mouth once daily Enalapril Maleate 5 mg tablet Discontinued 5 mg PO DAILY February 24, 2021 12:00am April 14, 2022 9:09am Start: 02-24-2020 End: 02-24-2021 take 1 tablet by mouth once daily Enalapril Maleate 10 mg tablet Discontinued 10 mg PO DAILY 90 3 February 24, 2020 12:00am February 24, 2021 9:15am Start: 07-28-2017 End: 03-15-2020 take 1 tablet by mouth once daily Enalapril Maleate 5 mg tablet Discontinued 5 mg PO daily 90 90 0 July 27, 2017 11:00pm February 24, 2020 9:27am Start: 05-12-2016 take 1 tablet by amy once daily ENALAPRIL MALEATE 10 MG TABS One tablet by mouth daily ENALAPRIL MALEATE [id number] Oriana Slaughter RN Comment on above: Take 5 mg by mouth o nce daily. flaxseed extract (4 sources) Non-Standardized Food Allergenic Extract, Non-Standardized Plant Allergenic Extract Start: 05-17-2016 take 1 tablet by mouth once daily FLAX SEED OIL CAPS One tablet by mouth daily FLAXSEED (LINSEED) CAPS [id number] Addy Pardo MD Flaxseed Oil oil (2 sources) End: 03-15-2020 Flaxseed Oil oil 1,300 mg once daily. 03/15/2020 Discontinued Flaxseed Oil oil 1,300 mg once daily. 0 Active Comment on above: 1,300 mg once daily. glucosamine HCl/chondroitin gerard (GLUCOSAMINE-CHONDROITIN ORAL) (2 sources) End: 03-15-2020 glucosamine HCl/chondroitin gerard (GLUCOSAMINE-CHONDROITIN ORAL) Take by mouth once daily. 500mg- 250mg dosage 03/15/2020 Discontinued take 500 mg by mouth once daily, then take 250 mg by mouth glucosamine HCl/chondroitin gerard (GLUCOSAMINE-CHONDROITIN ORAL) Take by mouth once daily. 500mg- 250mg dosage 0 Active Comment on above: Take by mouth once d aily. 500mg- 250mg dosage GREEN COFFEE LONGO CAPS (4 sources) Start: 05-17-2016 take 1 tablet by mouth once daily GREEN COFFEE LONGO CAPS One tablet by mouth daily GREEN COFFEE LONGO CAPS [id number] Addy Pardo MD green tea extract 150 mg oral capsule (19 sources) End: 02-01-2023 Green Tea 150 MG capsule Take by mouth. 0 02/01/2023 Discontinued (Therapy completed) Green Tea 150 MG capsule Take by mouth. 0 Active GREEN TEA LEAF EXTRACT (1 source) take 1 capsule by mouth once daily green tea leaf extract 150 mg cap Take by mouth once daily. 0 Active Comment on above: Take by mouth once d aily. green tea leaf extract 150 mg cap (1 source) End: 03-15 take 1 capsule by mouth once daily green tea leaf extract 150 mg cap Take by mouth once daily. 03/15/2020 Discontinued hydroCHLOROthiazide 25 mg oral tablet (8 sources) Thiazide Diuretic Start : 02-19 End: 02-23 take 1 tablet by mouth once daily Hydrochlorothiazide 25 mg tablet Discontinued 25 mg PO DAILY 90 3 February 19, 2019 12:00am February 24, 2020 9:12am hydrOXYzine hydrochloride 25 mg oral tablet (20 sources) Antihistamine Start : 10-17 End: 02-01 take 1 tablet by mouth every eight hours as needed for anxiety and anxiety and anxiety hydrOXYzine HCl (Atarax) 25 MG tablet Indications: Anxiety Take 1 tablet (25 mg) by mouth every 8 hours as needed for anxiety. 120 tablet 0 11/13/2022 02/01/2023 Discontinued (Therapy completed) Start: 10-10-2022 End: 10-17-2022 take 1 tablet by mouth twice daily as needed for anxiety hydrOXYzine HCl (Atarax) 25 MG tablet Indications: Anxiety Take 1 tablet (25 mg) by mouth 2 times daily as needed for anxiety. 120 tablet 0 10/10/2022 10/17/2022 Discontinued iopamidol (Isovue-370) 76 % injection 75 mL (2 sources) Start: 09-13-2024 End: 09-13-2024 take 75 mL intravenously once as needed 75 mL, IntraVENous, IMG once PRN, contrast, Starting on 09/13/24 at 1050, For 1 dose linseed oil 1000 mg oral capsule (20 sources) Start: 02-24-2020 End: 02-24-2021 take 1 capsule by mouth once daily Flaxseed Oil 1,000 mg capsule Discontinued 1000 mg PO DAILY February 24, 2020 12:00am February 24, 2021 9:15am administer with a meal Start: 01-22-2017 End: 11-13-2022 Flaxseed, Linseed, (Flax See d Oil) 1300 MG capsule Take 1,300 mg by mouth. 0 01/22/2017 11/13/2022 Discontinued (Therapy completed) MULTIPLE VITAMIN (4 sources) Start: 05-12-2016 take 1 tablet by mouth every twenty-four hours MULTIVITAMINS TABS One tablet by mouth daily MULTIPLE VITAMIN Oriana Slaughter RN multivit-min/iron/foli c acid/K (ADULTS MULTIVITAMIN ORAL) (2 sources) End: 03-15-2020 multivit-min/iron/foli c acid/K (ADULTS MULTIVITAMIN ORAL) Take by mouth once daily. 03/15/2020 Discontinued multivit-min/iro n/folic acid/K (ADULTS MULTIVITAMIN ORAL) Take by mouth once daily. 0 Active Comment on above: Take by mouth once d aily. naloxone hydrochloride 40 mg/ml nasal spray (3 sources) Opioid Antagonist Start: 12-29-19 End: 05-14-19 naloxone 4 mg/actuation nasal spray (NARCAN) Use 1 spray in one nostril as needed for overdose. May repeat every 2 to 3 min in alternating nostrils until medical assistance is available 1 Each 12/28/2020 05/13/2021 Discontinued Comment on above: Use 1 spray in one n ostril as needed for overdose. May repeat every 2 to 3 min in alternating nostrils until medical assistance is available naproxen sodium 220 mg oral tablet (8 sources) Nonsteroidal Anti-inflammatory Drug Start: 05-13-19 End: 05-18-19 take 1 tablet by mouth once daily ALEVE 220 MG TABS One tablet by mouth daily NAPROXEN SODIUM [id number] Oriana Slaughter RN [place]-3 Fatty Acids 1,000 mg capsule (4 sources) Start: 02-23-19 End: 12-04-19 take 1 capsule by mouth once daily [place]-3 Fatty Acids 1,000 mg capsule Discontinued 1000 mg PO DAILY February 24, 2020 12:00am December 03, 2024 8:14am supplement Start: 02-24-2020 take 1 capsule by mouth once d aily [place]-3 Fatty Acids 1,000 mg capsule Active 1000 mg PO DAILY February 24, 2020 1:00am OMEGA-3 FATTY ACIDS CAPS (4 sources) Start: 05-17-2016 take 1 tablet by mouth once daily EPA CAPS One tablet by mouth daily OMEGA-3 FATTY ACIDS CAPS [id number] Addy Pardo MD OMEGA-3 FATTY ACIDS CPDR (4 sources) Start: 05-12-2016 take 1 tablet by mouth once daily OMEGA 3 CPDR One tablet by mouth daily OMEGA-3 FATTY ACIDS CPDR [id number] Oriana Slaughter RN OMEGA-3 FATTY ACIDS PO (20 sources) End: 08-08-2024 take 1000 mg by mouth once daily OMEGA-3 FATTY ACIDS PO Take 1,000 mg by mouth daily. 08/08/2024 Discontinued (Dose adjustment) take 1000 mg by mouth once daily OMEGA-3 FATTY ACIDS PO Take 1,000 mg by mouth daily. Active omega-3/dha/epa/fish oil (FISH OIL HIGH POTENCY ORAL) (2 sources) End: 03-15-2020 take 200 mg by mouth once daily omega-3/dha/epa/fish oil (FISH OIL HIGH POTENCY ORAL) Take 200 mg by mouth once daily. 03/15/2020 Discontinued take 200 mg by mouth once daily omega-3/dha/epa/fish oil (FISH OIL HIGH POTENCY ORAL) Take 200 mg by mouth once daily. 0 Active Comment on above: Take 200 mg by mouth once daily. 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 3 mL 03/07/2024 05/12/2024 Discontinued (Cost of medication) Start: 03-07-2024 End: 03-07-2025 inject 2 mg by subcutaneous injection every week Semaglutide, 2 MG/DOSE, 8 MG/3ML solution pen-injector Indications: Prediabetes , CVD (cardiovascular disease) , Obesity, morbid (HCC) , 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) Inject 2 mg under the skin 1 (one) time per week. 3 mL 03/07/2024 03/07/2025 Active 50 ml sodium chloride 9 mg/ml injection (2 sources) Start: 09-13-2024 End: 09-13-2024 1,000 mL, IntraVENous, at 1,000 mL/hr, Administer over 1 Hours, Once, On 09/13/24 at 0930, For 1 dose sucralfate 1000 mg oral tablet (20 sources) Aluminum Complex Start: 02-24-2021 End: 04-14-2022 Sucralfate 1 gram tablet Discontinued NMA PO February 24, 2021 12:00am April 14, 2022 9:11am Start: 12-15-2020 End: 08-26-2024 take 1 tablet by mouth four times daily Sucralfate 1 gram tablet Discontinued 1 g PO .QID April 14, 2022 9:10am April 13, 2023 8:37am Comment on above: Take 1 tablet by amy th four times daily. TAKE 1 TABLET FOUR T IMES A DAY sulfamethoxazole 800 mg / trimethoprim 160 mg oral tablet (7 sources) Dihydrofolate Reductase Inhibitor Antibacterial, Sulfonamide Antimicrobial Start: 01-25-20 End: 03-07-19 take 1 tablet by mouth twice daily sulfamethoxazole-tr imethoprim (Bactrim DS) 800-160 MG tablet Indications: Epididymitis Take 1 tablet by mouth 2 times daily for 10 days. 20 tablet 01/25/2024 03/07/2024 Discontinued (Therapy completed) Start: 07-30-2020 End: 08-09-2020 take 1 tablet by mouth twice daily sulfamethoxazole-trimethoprim (BACTRIM DS;SEPTRA DS) 800-160 MG per tablet Indications: Dysuria Take 1 tablet by mouth 2 times daily for 10 days 20 tablet 0 07/30/2020 08/09/2020 Active tamoxifen 20 mg oral tablet (20 sources) Estrogen Agonist/Antagonist Start: 05-12-2016 End: 02-27-2020 take 1 tablet by mouth once daily Tamoxifen 20 mg tablet Discontinued 20 mg PO daily 90 90 0 July 27, 2017 11:00pm February 19, 2019 1:40pm Comment on above: Take 20 mg by mouth once daily. ticagrelor 90 mg oral tablet (20 sources) Start: 11-29-2023 End: 12-03-2024 take 1 tablet by mouth twice daily Ticagrelor (Brilinta) 90 mg tablet Discontinued 90 mg PO TWICE A DAY 180 3 October 23, 2024 6:59am December 03, 2024 8:34am ubiquinol 200 mg oral capsule (2 sources) End: 03-15-2020 take 200 mg by mouth once daily COQ10, UBIQUINOL, ORAL Take 200 mg by mouth once daily. 03/15/2020 Discontinued Comment on above: Take 200 mg by mouth once daily. vitamin b6 500 mg oral tablet (8 sources) Start: 04-14-2022 End: 04-13-2023 Pyridoxine (Vitamin B6) 500 mg tablet Discontinued 3000 mg PO DAILY April 14, 2022 12:00am April 13, 2023 8:36am vitamin e 180 mg oral capsule (20 sources) Start: 04-14-2022 End: 04-13-2023 Vitamin E Mixed 400 unit capsule Discontinued 400 U PO DAILY April 14, 2022 9:11am April 13, 2023 8:37am Start: 02-24-2020 End: 04-14-2022 Vitamin E Mixed 400 unit cap chip Discontinued U PO February 24, 2020 12:00am April 14, 2022 9:11am Start: 02-24-2020 End: 04-14-2022 Vitamin E Mixed Discontinued UNIT PO February 24, 2020 12:00am April 14, 2022 9:11am Start: 05-12-2016 take 1 tablet by amy th once daily VITAMIN E 400 UNIT CAPS One tablet by mouth daily VITAMIN E [id number] Oriana Slaughter RN End: 01-25-2024 take 1 capsule by mouth in the morning alpha tocopherol (Vitamin E) 400 units capsule Take 400 Units by mouth in the morning. 01/25/2024 Discontinued (Therapy completed) End: 03-15-2020 take 1 capsule by mouth once daily vitamin E, dl,tocopheryl acet, (VITAMIN E, DL, ACETATE,) 400 unit capsule Take 400 Units by mouth once daily. 03/15/2020 Discontinued take 1 capsule by mo uth in the morning alpha tocopherol (Vitamin E) 400 units capsule Take 400 Units by mouth in the morning. 0 Active take 1 capsule by mo uth once daily vitamin E 400 UNIT capsule Take 400 Units by mouth daily 0 Active take 1 capsule by mo uth once daily vitamin E, dl,tocopheryl acet, (VITAMIN E, DL, ACETATE,) 400 unit capsule Take 400 Units by mouth once daily. 0 Active Comment on above: Take 400 Units by mo uth once daily. Problems Active Problems Problem Classification Problem Date Documented Date Episodic/Chronic Abdominal hernia (1 source) Hiatal hernia; Translations: [Diaphragmatic hernia without obstruction or gangrene] Episodic Abdominal pain (1 source) Upper abdominal pain; Translations: [Upper abdominal pain, unspecified] Episodic Anxiety disorders (15 sources) Anxiety; Translations: [Other specified anxiety disorders] 10-10-2022 Chronic Attention-deficit conduct and disruptive behavior disorders (20 sources) Attention deficit hyperactivity disorder; Translations: [Attention-deficit hyperactivity disorder, unspecified type] Onset: 08-06-2014 08-06-2014 Chronic Cancer of breast (20 sources) Malignant neoplasm of male breast; Translations: [Malignant neoplasm of unspecified site of unspecified male breast] Onset: 11-16-2014 01-21-2017 Chronic Comment on above: right Cardiac and circulatory congenital anomalies (20 sources) Patent foramen ovale; Translations: [Atrial septal defect] Onset: 06-14-2016 06-14-2016 Chronic Coronary atherosclerosis and other heart disease (20 sources) Stented coronary artery; Translations: [Atherosclerotic heart disease of y[place]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 without angina pectoris] Onset: 11-28-2023 11-28-2023 Chronic Deficiency and other anemia (16 sources) Anemia; Translations: [Anemia, unspecified] 12-20-2020 Episodic Diabetes mellitus without complication (2 sources) Type 2 diabetes mellitus; Translations: [Type 2 diabetes mellitus without complications] 11-05-2024 Chronic Disorders of lipid metabolism (20 sources) Hyperlipidemia; Translations: [Hyperlipidemia, unspecified] Onset: 05-12-2016 05-12-2016 Chronic Diverticulosis and diverticulitis (1 source) Diverticular disease; Translations: [Diverticulosis of intestine, part unspecified, without perforation or abscess without bleeding] Chronic Esophageal disorders (20 sources) Cheung's esophagus; Translations: [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] Onset: 01-05-2016 01-05-2016 Chronic Essential hypertension (20 sources) Hypertensive disorder; Translations: [Essential hypertension] Onset: 05-12-2016 05-12-2016 Chronic Fluid and electrolyte disorders (2 sources) Drug-induced hypokalemia; Translations: [Hypokalemia] 11-28-2023 Episodic Gastritis and duodenitis (20 sources) Chronic superficial gastritis; Translations: [Chronic superficial gastritis without bleeding] Onset: 01-05-2016 05-03-2020 Chronic Heart valve disorders (16 sources) Heart murmur; Translations: [Cardiac murmur, unspecified] 12-20-2020 Episodic Hyperplasia of prostate (20 sources) Benign prostatic hyperplasia; Translations: [Benign prostatic hyperplasia without lower urinary tract symptoms] Onset: 12-21-2021 12-20-2020 Chronic Hypertension with complications and secondary hypertension (2 sources) Hypertensive heart disease without heart failure; Translations: [Hypertensive heart disease without heart failure] Onset: 11-07-2021 Chronic Immunizations and screening for infectious disease (1 source) Needs influenza immunization; Translations: [Encounter for immunization] 03-02-2023 Episodic Nausea and vomiting (3 sources) Nausea; Translations: [Nausea] Episodic Nonspecific chest pain (8 sources) Chest pain; Translations: [Chest pain, unspecified] Onset: 05-12-2016 05-12-2016 Episodic Nutritional deficiencies (5 sources) Vitamin D deficiency; Translations: [Vitamin D deficiency, unspecified] Onset: 01-25-2024 03-02-2023 Chronic Open wounds of extremities (2 sources) Cat bite - wound; Translations: [Open bite of unspecified finger without damage to nail, initial encounter] 05-12-2024 Episodic Osteoarthritis (20 sources) Osteoarthritis of left knee joint; Translations: [Unilateral primary osteoarthritis, left knee] Onset: 03-03-2020 Resolved: 12-20-2020 12-20-2020 Chronic Other connective tissue disease (20 sources) History of total knee arthroplasty; Translations: [Presence of left artificial knee joint] Onset: 03-15-2020 Chronic Comment on above: Right 03/2020, left 1 02/2020 Other connective tissue disease (1 source) History of bilateral total knee replacement; Translations: [Presence of artificial knee joint, bilateral] 02-24-2021 Chronic Comment on above: Right 03/2020, left 1 02/2020 Other connective tissue disease (8 sources) Muscle spasm of cervical muscle of neck; Translations: [Other muscle spasm] Episodic Other lower respiratory disease (5 sources) Dyspnea; Translations: [Dyspnea, unspecified] Onset: 05-12-2016 05-12-2016 Episodic Other lower respiratory disease (4 sources) Dyspnea, unspecified; Translations: [Dyspnea, unspecified] Onset: 09-07-2021 Episodic Other male genital disorders (4 sources) Pain of right testicle; Translations: [Right testicular pain] 01-25-2024 Episodic Other nervous system disorders (2 sources) Other chronic pain; Translations: [Other chronic pain] Onset: 01-25-2024 Chronic Other nervous system disorders (2 sources) Paresthesia of foot ; Translations: [Paresthesia of skin] 01-25-2024 Episodic Other non-traumatic joint disorders (6 sources) Hip pain; Translations: [Pain in right hip] 01-25-2024 Episodic Other non-traumatic joint disorders (1 source) Pain in left knee; Translations: [Left knee pain, unspecified chronicity] Other nutritional; endocrine; and metabolic disorders (4 sources) Obesity; Translations: [Other obesity due to excess calories] Onset: 03-03-2020 03-03-2020 Chronic Other nutritional; endocrine; and metabolic disorders (11 sources) Obesity caused by energy imbalance; Translations: [Other obesity due to excess calories] Onset: 03-03-2020 03-03-2020 Chronic Other nutritional; endocrine; and metabolic disorders (20 sources) Morbid obesity; Translations: [Morbid (severe) obesity due to excess calories] Onset: 03-02-2023 03-02-2023 Chronic Other nutritional; endocrine; and metabolic disorders (2 sources) Morbid (severe) obesity due to excess calories; Translations: [Morbid (severe) obesity due to excess calories (HCC)] Onset: 03-02-2023 Chronic Other screening for suspected conditions (not mental disorders or infectious disease) (11 sources) CT of chest abnormal; Translations: [Abnormal findings on diagnostic imaging of other specified body structures] Onset: 02-27-2024 10-17-2022 Chronic Other upper respiratory infections (4 sources) Rhinitis; Translations: [Acute nasopharyngitis [common cold]] 12-13-2023 Episodic Residual codes; unclassified (2 sources) Hypersomnia, unspecified; Translations: [Hypersomnia, unspecified] Onset: 09-23-2021 Chronic Residual codes; unclassified (20 sources) Bilateral lower limb edema; Translations: [Localized edema] 12-20-2020 Episodic Residual codes; unclassified (2 sources) Localized edema; Translations: [Localized edema] Onset: 11-07-2021 Episodic Residual codes; unclassified (1 source) Localized edema; Translations: [Localized edema] Onset: 11-07-2021 Episodic Residual codes; unclassified (7 sources) Pain; Translations: [Pain, unspecified] 10-13-2020 Episodic Residual codes; unclassified (3 sources) Transition of care; Translations: [Other specified health status] 12-13-2023 Episodic Residual codes; unclassified (2 sources) Estrogen receptor positive status [ER+]; Translations: [Estrogen receptor positive status (ER+)] Onset: 04-19-2023 Episodic Residual codes; unclassified (1 source) Pain, unspecified; Translations: [Pain] Onset: 11-26-2024 Episodic Spondylosis; intervertebral disc disorders; other back problems (20 sources) Lumbar radiculopathy; Translations: [Radiculopathy, lumbar region] Onset: 07-11-2024 07-11-2024 Episodic Unclassified (1 source) 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, estrogen receptor positive 04-18-2024 Unclassified (1 source) New Patient Evaluation Onset: 11-26-2024 Past or Other Problems Problem Classification Problem Date Documented Date Episodic/Chronic Cancer of breast (20 sources) History of malignant neoplasm of breast; Translations: [Personal history of malignant neoplasm of breast] Onset: 11-16-2014 05-03-2020 Episodic Coronary atherosclerosis and other heart disease (1 source) Presence of coronary angioplasty implant and graft; Translations: [Presence of coronary angioplasty implant and graft] Onset: 12-25-2023 Episodic Deficiency and other anemia (7 sources) Normocytic normochromic anemia; Translations: [Anemia, unspecified] Onset: 10-15-2020 10-15-2020 Episodic Deficiency and other anemia (20 sources) Macrocytic anemia; Translations: [Nutritional anemia, unspecified] Onset: 10-15-2020 Resolved: 03-08-2024 05-26-2022 Episodic Diabetes mellitus without complication (20 sources) Prediabetes; Translations: [Prediabetes] Onset: 12-20-2020 12-20-2020 Episodic Disorders of teeth and jaw (6 sources) Toothache; Translations: [Other specified disorders of teeth and supporting structures] Onset: 09-13-2024 09-13-2024 Episodic Gastritis and duodenitis (20 sources) Chronic superficial gastritis; Translations: [Bile-induced gastritis] Onset: 01-05-2016 01-05-2016 Episodic Genitourinary symptoms and ill-defined conditions (8 sources) Isolated proteinuria; Translations: [Isolated proteinuria] Onset: 11-07-2021 Episodic Inflammatory conditions of male genital organs (4 sources) Epididymitis; Translations: [Epididymitis] Onset: 01-25-2024 01-25-2024 Episodic Other aftercare (4 sources) Other fci (current) drug therapy; Translations: [Other termite control representative (current) drug therapy] Onset: 05-12-2016 05-12-2016 Episodic Other aftercare (1 source) Encounter for follow-up examination after completed treatment for malignant neoplasm; Translations: [Encntr for follow-up exam after trtmt for malignant neoplasm] Onset: 04-10-2022 Episodic Other circulatory disease (20 sources) Capillary leak syndrome; Translations: [Other diseases of capillaries] Onset: 12-21-2021 05-26-2022 Episodic Other circulatory disease (2 sources) Other diseases of capillaries; Translations: [Other diseases of capillaries] Onset: 05-26-2022 Episodic Other connective tissue disease (2 sources) Other muscle spasm; Translations: [Other muscle spasm] Onset: 03-07-2024 Episodic Other eye disorders (10 sources) Dermatochalasis of right upper eyelid; Translations: [Dermatochalasis] Onset: 04-07-2019 Resolved: 04-07-2019 04-07-2019 Episodic Other lower respiratory disease (20 sources) Solitary nodule of lung; Translations: [Solitary pulmonary nodule] Onset: 09-01-2024 09-01-2024 Episodic Other lower respiratory disease (2 sources) Solitary pulmonary nodule; Translations: [Solitary pulmonary nodule] Onset: 09-01-2024 Episodic Other male genital disorders (2 sources) Right testicular pain; Translations: [Right testicular pain] Onset: 01-25-2024 Episodic Other nervous system disorders (2 sources) Paresthesia of skin; Translations: [Paresthesia of skin] Onset: 01-25-2024 Episodic Other non-traumatic joint disorders (2 sources) Pain in right hip; Translations: [Pain in right hip] Onset: 01-25-2024 Episodic Other screening for suspected conditions (not mental disorders or infectious disease) (20 sources) Calcification of coronary artery; Translations: [Abnormal findings on diagnostic imaging of heart and coronary circulation] Onset: 04-15-2024 10-17-2022 Episodic Results Test Name Value Interpretation Reference Range Facility 36on 12-22-2024 36 Insurance Info: Cathryn alonzo Medicare CPT Codes: 92298-FPX Authorization Number: [id number], Valid: 01/21-06/21/2025 PAT: BECKY Sx: 01/21 @ 12:30 Dx: M16.11 Case # Procedure: right Total Hip Arthroplasty with Anterior Approach Time: 1 hours Diagnosis: 1. Primary osteoarthritis of right hip 2. 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 [address] 12-17-2024 36 PT called back and i s ready to schedule, he is requesting a call back. [address] 12-16-2024 36 Spoke with patient a nd informed him we received his cardiac clearance. He stated he is going to discuss dates with his and call back to schedule. [facility] 36 Cardiac clearance faxed 12/12, confirmation uploaded to [employer]. Cardiac clearance received 12/16, uploaded to [employer]. [facility] Office Visiton 12-11-2024 Follow-up visit [id number] Abdifatah Macario 1950 M Date Provider Department Center 12/11/2024 [id number] VELASCO [facility] [place] [facility] None Family History Problem Relation Age of Onset Liver disease Mother Comments: BAILEY Breast cancer Sister 40 Kidney disease Other Comments: dye-induced renal failre Breast cancer Father's Brother Breast cancer Mother's Sister Family Status - Relation Status Age at Mother Sister Other Father's Brother Alive Mother's Sister Alive Level of Service:66470 [place] OFFICE/OUTPATIENT NEW MODERATE MDM 45 MINUTES Reason for Visit and Comments: New Patient [542] - Bilateral hip pain Normal [facility] Progress Noteon 12-11-2024 Progress Note [facility] [place] [address] [address] [facility] [address] Dept: [phone] Dept 12/11/2024 Chief Complaint Patient presents with New Patient Bilateral hip pain Subjective: Abdifatah is a 74 y.o. male who presents with Bilateral hip pain located in the groin and LB. Right worse than left. Symptoms began gradually several years ago. Abdifatah describes the symptoms as aching. Symptoms improve with rest, medication: Tylenol used but not effective. The symptoms are exacerbated by activity, stair climbing, getting up from a chair, weight bearing, sitting for prolonged periods of time, ADL's. The patient does feel the pain is effecting their quality of life and activities of daily living. Previous treatment has consisted of: NSAIDS: No Tylenol: Yes Topicals: Yes Cortisone injections: No Assistive Devices: none Therapy/HEP: Yes HEP Narcotics: No Surgeries: No Activity modification: Yes Review of Systems Constitutional: Negative for activity change. HENT: Negative for congestion. Cardiovascular: Negative for leg swelling. Musculoskeletal: Positive for arthralgias, gait problem and joint swelling. Skin: Negative for wound. Neurological: Negative for weakness. Medical History[1] Surgical History[2] Social History Socioeconomic History Marital status: Spouse name: Not on file Number of children: Not on file Years of education: Not on file Highest education level: Not on file Occupational History Not on file Tobacco Use Smoking status: Never Passive exposure: Never Smokeless tobacco: Never Vaping Use Vaping status: Never Used Substance and Sexual Activity Alcohol use: Yes Comment: occasion Drug use: No Sexual activity: Not on file Other Topics Concern Not on file Social History Narrative Not on file Social Drivers of Health Financial Resource Strain: Low Risk (07/11/2024) Overall Financial Resource Strain (CARDIA) Difficulty of Paying Living Expenses: Not hard at all Food Insecurity: No Food Insecurity (07/11/2024) Hunger Vital Sign Worried About Running Out of Food in the Last Year: Never true Ran Out of Food in the Last Year: Never true Transportation Needs: No Transportation Needs (07/11/2024) PRAPARE - Transportation Lack of Transportation (Medical): No Lack of Transportation (Non-Medical): No Physical Activity: Insufficiently Active (07/11/2024) Exercise Vital Sign Days of Exercise per Week: 2 days Minutes of Exercise per Session: 30 min Stress: No Stress Concern Present (07/11/2024) [place] Citizen [place] of Occupational Health - Occupational Stress Questionnaire Feeling of Stress : Not at all Social Connections: Moderately Integrated (07/11/2024) Social Connection and Isolation Panel [NHANES] Frequency of Communication with Friends and Family: Twice a week Frequency of Social Gatherings with Friends and Family: Twice a week Attends Muslim Services: Never Active Member of Clubs or Organizations: Yes Attends Club or Organization Meetings: More than 4 times per year Marital Status: Intimate Partner Violence: Not on file Housing Stability: Unknown (07/11/2024) Housing Stability Vital Sign Unable to Pay for Housing in the Last Year: No Number of Times Moved in the Last Year: Not on file Homeless in the Last Year: No Family History[3] Allergies[4] Objective: Ht 5' 8 (1.727 m) Wt 230 lb (104 kg) BMI 34.97 kg/m? Pt is a WD/WN male in no acute distress. Abdifatah appears stated age. Mood and affect are normal. Abdifatah is A&O x 3. Gait: antalgic. RIGHT HIP: Skin is warm, dry and intact. No tenderness to palpation. Greater trochanter is not tender. ROM shows flexion 80, extension 0, IR 10, ER 20, with pain. Tredelenburg sign: negative. +PF/DF/EHL LEFT HIP: Skin is warm, dry and intact. No tenderness to palpation. Greater trochanter is not tender. ROM shows flexion 80, extension 0, IR 10, ER 20. , with pain. Tredelenburg sign: negative. +PF/DF/EHL The patient does not appreciate a leg length discrepancy and measures 0.5cm short right Ortho Exam XRAYS: I have personally interpreted the outside films pertinent to the appointment today at [facility] Indication: Bilateral hip pain Exam Ordered: Radiographs include an anteroposterior pelvis, an anteroposterior and lateral view of the proximal femur including the hip joint. Details of Examination: Today's exam shows evidence of joint space narrowing, osteophyte formation, and subchondral sclerosis, all consistent with degenerative arthritis of the hip. No other significant findings are noted. Impression: Severe Degenerative Arthritis, Right hip Assessment 1. Primary osteoarthritis of right hip 2. Primary osteoarthritis of left hip Plan This treatment will consist of... ~ Activity modification ~ Topical Voltaren ~ Tylenol ~ Surgery Anterior EDUARDO This patient has significant sym (more content not included)... Normal [facility] Cardiology Visit Reporton Cardiology Visit Report [facility] [address] [place] [address] OFFICE VISIT Date of Service: 12/03/24 MR#: [id number] Acct: [id number] Name: ABDIFATAH MACARIO Rep #: [id number] : 1950 Provider: RAVINDRA monet Age/Sex: 74/M Location: [facility] [place] Status: Signed HPI HPI History of Present Illness Details: ABDIFATAH MACARIO, is a 74 M who presents to the office today for a follow-up visit. He is a gentleman with a history of chronic Cheung's esophagitis, small patent foramen ovale, hypertension and hyperlipidemia who returns for routine follow-up visit. He does have a history of right breast cancer with chemo and radiation in [id number]. Previously, he was concerned about family history of coronary artery disease. He did undergo a coronary calcium score. Coronary calcium score was significantly elevated at 2542. It was recommended that he undergo a diagnostic heart catheterization. Because he was not symptomatic this was denied by his insurance. He did undergo a stress test. Patient was able to walk 6 minutes for total of 7 METS. No ischemia was noted. Echocardiogram demonstrated an ejection fraction of 65%. RVSP of 37 mmHg. He did undergo a diagnostic heart catheterization November 28, 2023. This demonstrated EF of 65%, left main with mild calcification with mild luminal irregularities, LAD moderate calcification, mild diffuse disease noted in the proximal and mid anterior descending and mild disease present. Circumflex less than 30%, proximal circumflex moderate luminal irregularities up to 50%, ramus mild luminal irregularities, RCA dominant calcified vessel with left 80% proximal stenosis and moderate mid segment disease with mild distal disease. Patient underwent stenting to his proximal RCA. He denies chest, arm, jaw, or neck discomfort. He denies palpitations. He continues with bilateral lower extremity edema. He denies claudication. He denies shortness of breath with activity, shortness of breath at rest, orthopnea, or PND. He denies chronic cough. He denies significant, sudden weight gain. He states occasional lightheadedness. He denies dizziness, near-syncope, or syncope. He denies blood in urine, blood in stool, or epistaxis. He denies fever with chills. He denies myalgia. He denies fatigue. His exercise level has remained stable via stationary bike though limited by hip pain. He is hoping to get his hip fixed to improve his exercise. 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 Is patient in pain?: No Allergies No Known Allergies Allergy (Verified 12/03/24 09:06) Medications ???Medication ???Instructions ???Recorded ???Confirmed ???Type pantoprazole 40 mg tablet,delayed 40 mg PO QDAY acid reflux 90 days 07/28/17 12/03/24 History release #90 tabs multivitamin 1 tab PO DAILY supplement 02/24/20 12/03/24 History potassium chloride 10 mEq 10 meq PO DAILY supplement 12/03/24 History capsule,extended release tamsulosin 0.4 mg capsule 0.4 mg PO DAILY prostate 02/24/21 12/03/24 History cholecalciferol (vitamin D3) 125 125 mcg PO DAILY supplement 12/03/24 History mcg (5,000 unit) capsule mecobalamin (vitamin B12) 5,000 5,000 mcg PO DAILY supplement 03/0712/03/24 History mcg chewable tablet aspirin 81 mg tablet,delayed 81 mg PO BREAKFAST #90 tabs 12/03/24 Rx release metoprolol tartrate 25 mg tablet 25 mg PO BID #180 tabs 12/25/23 Rx furosemide 20 mg tablet 20 mg PO BID PRN water pill 12/03/24 History amoxicillin 500 mg capsule 2,000 mg PO .COMPLEX PRN 10/22/25 10/22/25 History ascorbic acid (vitamin C) 500 mg 500 mg PO QDAY 12/03/24 12/03/24 H istory tablet famotidine 20 mg tablet 20 mg PO QHS 12/03/24 12/03/24 His tory ipratropium bromide 21 mcg (0.03 2 spray intranasal Q12H PRN 12/03/24 History %) nasal spray metaxalone 800 mg tablet 800 mg PO BID PRN muscle spasm 12/03/24 History rosuvastatin 40 mg tablet 40 mg PO QDAY 12/03/24 12/03/24 Hi story semaglutide 0.25 mg or 0.5 mg (2 0.25 mg (0.368 mL) subcut QWEEK 4 12/03/24 12/03/24 Rx mg/3 mL) subcutaneous pen injector weeks #3 mL (Ozempic) turmeric root extract 500 mg tablet 1,000 mg PO QDAY 12/03/2412/03 History vitamins A,C,H-jntr-azpuvt 4,296 1 cap PO BID 12/03/24 12/03/24 His tory mcg-226 mg-90 mg capsule (PreserVision AREDS) Ejection fraction %: 65 Have you fallen in the past year?: No [facility] Medical History Ty (more content not included)... [facility]SA[facility] ) ABDIFATAH MACARIO ([id number]) 1950 M Date Time Provider Department 11/26/24 11:00 AM CELINA GARCIA During your visit today, we recorded the following information about you: Celina Garcia MD 11/26/2024 12:29 PM Signed CONSULT ORTHOPAEDIC: KNEE PRIMARY CARE PHYSICIAN: Danial Dempsey MD REFERRING PROVIDER: Celina Garcia [address] [facility] [address] ASSESSMENT AND PLAN Impression: Right knee pain Right hip severe arthritis Diagnoses: No diagnosis found. After discussion with Abdifatah Macario, the patient would like to pursue EDUARDO (anterior approach). 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 It is anticipated he will be able to discontinue his anticoagulant medications. Once he is able to be a surgical candidate he wishes to purse joint replacement. He will follow up with another provider who utilizes the approach he desires. The patient has been ordered: No orders found for this visit on 11/26/24. No orders placed today. CONSULTS: Patient does not require consults for optimization at this time. Total Joint Athroplasty - Risk Calculator Risk Factors for Total Knee Arthroplasty (TKA) Major Risk Factors Obesity Moderate Risk High: BMI > 40 Moderate: BMI 30-40 Normal: BMI < 30 Diabetes normal High: A1C > 8 Moderate: A1C 7-8 Normal: A1C < 7 Hx of DVT / PE normal High: dx of DVT / PE Normal: no dx of DVT / PE Smoking normal High: Current smoker Normal: Non smoker Narcotics Use normal High:NarxCare >=300 Moderate: 100-299 Normal: 0-99 Depression Unknown Risk High: PHQ-9 >14 Moderate: PHQ-9 5-14 Normal: PHQ-9 < 5 Area Deprivation Index (CHRISTOS) normal High: CHRISTOS Score > 75 Moderate: CHRISTOS 50-75 Normal: CHRISTOS < 50 Obesity: weight management recommended BMI Readings from Last 3 Encounters: 08/26/24 : 35.73 kg/m? 05/13/21 : 35.28 kg/m? 12/27/20 : 34.97 kg/m? Area Deprivation Index (CHRISTOS) 08/26/2024 CHRISTOS Score National Score 40 Patient Health Questionnaire (PHQ-9) No data to display (0-4) minimal depression, (5-9) mild depression, (10-14) moderate depression, (15-19) moderately severe depression, (20-27) severe depression Bone Density Risk Screen Abdifatah Macario is at risk for bone loss and has not had a bone densitometry scan in the last 2 years (date of last scan: 07/20/2015). Recommend a bone densitometry scan and if indicated on the bone density results, a consult to a bone health specialist (Rheumatology, Endocrinology, or Women's Health) for bone assessment. Risk Factors: Use of Furosemide Use of Proton Pump Inhibitors Prednisone or use of systemic steroids Additional Risk Factors Anemia Hemoglobin (g/dL) Date Value 12/28/2020 10.7 12/20/2020 13.4 Past Orthopaedic Surgery: Abdifatah had knee surgery on 12/27/2020 with Celina Garcia. Malnutrition: No Malnutrition Screening Tool (MST) score on file- please complete the MST screening tool (click here to open) and refresh the note. 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 Breast Cancer in Male (Hcc) Essential Hypertension Hyperlipidemia Patent Foramen Ovale (Hcc) Class 2 Obesity Due to Excess Calories With Body Mass Index (Bmi) of 35.0 to 35.9 in Adult Status Post Total Right Knee Replacement Primary Osteoarthritis of Left Knee Heart Murmur Bph (Benign Prostatic Hyperplasia) Anemia Bilateral Leg Edema Prediabetes Status Post Total Knee Replacement, Left SUBJECTIVE CHIEF COMPLAINT: Knee Pain HPI: Abdifatah Macario is a 74 year old patient . Abdifatah Macario has had progressive problems with the knee(s) multiple times a day over the past 6 month(s) interfering with activities which include rising from a sitting position, standing for prolonged periods of time, and climbing stairs. The problem began limiting activities 1-6 months ago. Patient describes his knee pain as the sensation of a tight band around his right knee. Additionally he complains of right groin pain that seems to radiate down his leg around his knee. Patient is aware he has right hip osteoarthritis but is not currently a surgical candidate due to his cardiac history. He does have follow up with his supervisor modern languages next week. After he is cleared to do so, he intends to pursue EDUADRO. He feels his knee pain is related to his hip. PROMIS Physical Function Score No data to display FUNCTIONAL STATUS: Walk indoors, such as around the house (1.75 METs) Do light work around the house, such as dusting or washing dishes (2.70 METs) Take care of self, that is eating, dressing, bathing, using the toilet (2.75 METs) Walk a block or two on level ground (2.75 METs) Do moderate work around the house such as vacuuming, sweeping floors, or carrying in groceries (3.50 METs) Do yardwork, such as raking leaves, weeding,or pushing a pow (more content not included)... Normal [facility] XR KNEE 4V AP/PA/LAT/MERCH B ILon 11-26-2024 XR KNEE 4V AP/PA/LAT/MERCH STU * * *Final Report* * * DATE OF EXAM: Nov 26 2024 11:12AM CCX 5618 - XR KNEE 4V AP/PA/LAT/MERCH STU / PROCEDURE REASON: Pain * * * * Physician Interpretation * * * * REASON FOR STUDY: Pain . PATIENT/TECHNOLOGIST-P ROVIDED HISTORY: Pain TECHNIQUE: XR KNEE 4V AP/PA/LAT/MERCH STU Laterality: BILATERAL Number of different views (projections): 4 each COMPARISON: 01/27/2021 RESULT: Knees: Status post bilateral total knee arthroplasty with patellar resurfacing. The hardware appears intact without radiographic evidence of loosening. Suprapatellar soft tissue density is noted, likely representing granulation tissue formation. No knee effusion is seen. There is no acute fracture or dislocation. Incidental note is made of vascular calcifications. No other significant abnormality is seen. - IMPRESSION: Postoperative findings without hardware complication or acute osseous abnormality in both knees. Wool Batting Worker: SORAIDA Transcribe Date/Time: Nov 26 2024 2:37P Dictated by : DOMENIC GALLO MD This examination was interpreted and the report reviewed and electronically signed by: DOMENIC GALLO MD on Nov 26 2024 2:39PM EST [id number] Normal [facility] 36on 11-24-2024 36 No response from patient regarding reminders to schedule appointment from recall list. Normal [facility] 36on 10-24-2024 36 Left detailed voicemail for patient as follows: Now that Dr. Dempsey has retired, her patient were reassigned to other physicians. Unfortunately, the doctor she thought would be taking over her patients, was unable to join our practice. She has asked Dr. Denis Osuna to take over your care here at [facility]. Your follow up appointment is due in November, so please call our office at [phone] to schedule your appointment. Thank you Normal [facility] 36on 10-15-2024 36 Called and spoke wit h patient but he stated he would like to call back at a more convenient time since he was driving Should patient return call please assist him in scheduling a medicare Annual Wellness exam and a F/U appointment that is due in December Normal [facility] Progress Noteon 10-09-2024 Progress Note [facility] [place] [address] [place] [address] Dept: [phone] Dept PHYSICAL THERAPY RE-EVALUATION Patient Name: Ilir Macario : 1950 Date of Service: 10/09/2024 Referring Provider: Danial Dempsey MD Visit #: 16 Diagnosis: Lumbar back pain with radiculopathy affecting left lower extremity Mechanism of injury: insidious onset and worsening of low back pain Patient Preferences: Ilir Subjective General Comments: Ilir says he feels like he is continuing to make a little bit of progress. Says he feels like a a little higher in the back is feeling better, massage helped that. Says his overall endurance has been helped but he is still having low back pain. Says that he was busy last night and so he is having pain today. Says he can push through things but that it is still hard. Says it is still difficult to do his yard work and walking for longer distances. He says he feels about 70% functional at this time. Pain: Current: 5/10 across low back Best: 2/10 Worst: 9/10 Current Level of Function: independent with some pain Patient?s Stated Goal: reduce pain Objective BACK Oswestry Disability Index (X/50): 13 Posture/Observation: forward head and rounded shoulders Gait: WFL Date Recorded: 10/09/2024 Trunk AROM Percentage Comments Flexion (flex) 100 Extension (ext) 0 pain Right side bending (SBR) 100 Left side bending (SBL) 100 Right rotation (rotR) 100 Left rotation (rotL) 100 Date Recorded: 10/09/2024 Comments Lower Extremity ROM Right Left AROM AROM Hip Flexion 93 115 Myotomes/LE Strength Right X/5 Left X/5 Comments Hip Flexion (L2-L3) 5 5 Hip Abduction 5 5 Hip Extension 4+ 4+ Knee Extension (L3-L4) 5 5 Knee Flexion (S2) 5 5 Ankle DF (L5) 5 5 Ankle PF (S1) 5 5 Joint Mobility: hypomobile lumbar spine Palpation: non-tender to palpation Flexibility: no abnormalities Special Tests: Straight Leg Raise: right negative and left negative 5 time Dpj-ic-Bwpsk (seconds): 12.38 - Use of upper extremities?: No - Chair Height (standard chair 16-18 inches): 17 Functional Squat: proper form, lack of depth SLS: R: 8 sec L: 20 sec Assessment Ilir has made progress with physical therapy. He has improved his range of motion, reduced his 5xsts time, increased his strength, and self reports improving function. Despite these improvements he does still have pain, weakness, and limited range of motion and mobility. He would benefit from continued skilled physical therapy in order to address remaining deficits and progress to higher levels of functioning Rehab Potential: Good Goals Active General/Ortho Patient will be able to walk 2 miles without pain to improve community ambulation. (Progressing) Start: 08/14/24 Expected End: 01/09/25 Patient will decrease Oswestry Disability Index from a 15 to a 5 to show a decrease in pain with ADLs. (Progressing) Start: 08/14/24 Expected End: 01/09/25 Patient will increase R hip flexion from a 72 and L hip flexion from a 100 to 120 for improve gait. (Progressing) Start: 08/14/24 Expected End: 01/09/25 Patient will increase hip strength to a 5/5 to improve ability to complete functional tasks. (Progressing) Start: 08/14/24 Expected End: 01/09/25 Plan Frequency and Duration: on hold for vacation, if returns 2/wk for 4 weeks Therapeutic Contents: client education, group therapy, home exercise program, manual therapy techniques, neuromuscular re-education, therapeutic activities, therapeutic exercise, trigger point dry needle, and modalities as needed Plan for next session: continue strengthening, balance progressions, STM for pain control Risks and benefits were discussed with the patient and/or family, and the patient and/or family participated with the plan of care and agrees. Treatment Patient Education: re-evaluation (billed as therapeutic activity due to multiple components of function were involved) Home Exercise Program: continue current Time Entry Total Treatment Time Start Time: 2108 Stop Time: 2129 Time Calculation (min): 21 min PT Therapeutic Procedures Time Entry Therapeutic Activity Time Entry: 21 [place], PT Normal [facility] Progress Noteon 10-02-2024 Progress Note [facility] [place] [address] [place] [address] Dept: [phone] Dept PHYSICAL THERAPY TREATMENT Patient Name: Ilir Macario : 1950 Date of Service: 10/02/2024 Referring Provider: Danial Dempsey MD Visit #: 15 Diagnosis: Lumbar back pain with radiculopathy affecting left lower extremity Mechanism of injury: insidious onset and worsening of low back pain Patient Preferences: Ilir Subjective Pt reports that he feels alright today, feels that strength is his biggest issue at this point. Feels that STM is really helpful also. Compliance with HEP: Yes Objective Objective measurements not taken today. Treatment Therapeutic Activity # of Activities: 12 Therapeutic Activity 1: NuStep warm up for endurance and ROM Activity 1 Comment: x5 min lvl 7, seat 10, UE 9 Therapeutic Activity 4: Hip hikes at stairs Activity 4 Comment: 3 x 10 B #3 Therapeutic Activity 5: Mini Squats Activity 5 Comment: 3 x10 Therapeutic Activity 6: resisted walking, 70# (Both handles), Activity 6 Comment: Lat B x 5 ea Therapeutic Activity 7: Romanian ball rollouts- Fwd/ lat B Activity 7 Comment: x 15 ea, 10 holds Home Exercise Program: Progressed home exercise program Assessment Skilled physical therapy interventions utilized to improve patient?s impairments and work towards established goals. Patient response to treatment: Focused session on hip/ core stabilization on this date. Increased resistance for hip hikes and added ball rollouts to home program. Reports feeling that his back feels fatigued but not more painful post appointment. Patient will benefit from continued physical therapy to improve muscular stabilization and benefit QOL. The rationale for today?s treatment was explained to the patient. Verbal cues were provided for correct form with all exercises. Advised patient to continue with Home Exercise Program (HEP). Goals General/Ortho Patient will be able to walk 2 miles without pain to improve community ambulation. (Progressing) Start: 08/14/24 Expected End: 10/15/24 Patient will decrease Oswestry Disability Index from a 15 to a 5 to show a decrease in pain with ADLs. (Progressing) Start: 08/14/24 Expected End: 10/15/24 Patient will increase R hip flexion from a 72 and L hip flexion from a 100 to 120 for improve gait. (Progressing) Start: 08/14/24 Expected End: 10/15/24 Patient will increase hip strength to a 5/5 to improve ability to complete functional tasks. (Progressing) Start: 08/14/24 Expected End: 10/15/24 Plan Plan for next session: Progress strength and continue flexibility as needed. Resume STM Time Entry Total Treatment Time Start Time: 932 Stop Time: 958 Time Calculation (min): 26 min PT Therapeutic Procedures Time Entry Therapeutic Activity Time Entry: 26 Almas Rascon PTA Normal [facility] Progress Noteon 09-30-2024 Progress Note [facility] [place] [address] [place] [address] Dept: [phone] Dept PHYSICAL THERAPY TREATMENT Patient Name: Ilir Macario : 1950 Date of Service: 09/30/2024 Referring Provider: Danial Dempsey MD Visit #: 14 Diagnosis: Lumbar back pain with radiculopathy affecting left lower extremity Subjective Pt reports that he has a little pain in his back today, has been tasking prednisone after a dental procedure which seems to be helping his pain a lot. Compliance with HEP: Yes Objective Objective measurements not taken today. Treatment Therapeutic Activity # of Activities: 12 Therapeutic Activity 1: NuStep warm up for endurance and ROM Activity 1 Comment: x5 min lvl 7, seat 10, UE 9 Therapeutic Activity 5: Mini Squats Activity 5 Comment: 3 x10 Therapeutic Activity 6: resisted walking, 70# (Both handles), x 5 d/b ea Activity 6 Comment: Fwd/ bkwd, bkwd/ fwd, lat B Therapeutic Activity 9: TKE Activity 9 Comment: 3 x 10 B, #50 Home Exercise Program: Deferred Assessment Skilled physical therapy interventions utilized to improve patient?s impairments and work towards established goals. Patient response to treatment: Continued hip/ LE and core strengthening exercises on this date. Continued resisted walking but maintained weight d/t pt stating this was adequately challenging. Added TKE with black band to HEP to help with B LE extension. Pt reports feeling fatigued post appointment but had no increase in pain. Patient will benefit from continued physical therapy to reduce painful symptoms and achieve PT goals. The rationale for today?s treatment was explained to the patient. Verbal cues were provided for correct form with all exercises. Advised patient to continue with Home Exercise Program (HEP). Goals General/Ortho Patient will be able to walk 2 miles without pain to improve community ambulation. (Progressing) Start: 08/14/24 Expected End: 10/15/24 Patient will decrease Oswestry Disability Index from a 15 to a 5 to show a decrease in pain with ADLs. (Progressing) Start: 08/14/24 Expected End: 10/15/24 Patient will increase R hip flexion from a 72 and L hip flexion from a 100 to 120 for improve gait. (Progressing) Start: 08/14/24 Expected End: 10/15/24 Patient will increase hip strength to a 5/5 to improve ability to complete functional tasks. (Progressing) Start: 08/14/24 Expected End: 10/15/24 Plan Plan for next session: Progress LE/ hip and core stability as tolerated Time Entry Total Treatment Time Start Time: 931 Stop Time: 956 Time Calculation (min): 25 min PT Therapeutic Procedures Time Entry Therapeutic Activity Time Entry: Almas Rascon PTA Normal [facility] Progress Noteon 09-25-2024 Progress Note [facility] [place] [address] [place] [address] Dept: [phone] Dept PHYSICAL THERAPY TREATMENT Patient Name: Ilir Macario : 1950 Date of Service: 09/25/2024 Referring Provider: Danial Dempsey MD Visit #: 13 Diagnosis: Lumbar back pain with radiculopathy affecting left lower extremity Subjective Patient reporting the back seems to be doing better. He is noticing while walking he is not hurting. Compliance with HEP: Yes Objective Objective measurements not taken today. Treatment Therapeutic Activity # of Activities: 12 Therapeutic Activity 1: NuStep warm up for endurance and ROM Activity 1 Comment: x5 min lvl 7, seat 10 Therapeutic Activity 4: Resisted 3 way hips Activity 4 Comment: lvl ; 2x10 Therapeutic Activity 5: Mini Squats on foam Activity 5 Comment: 2x10 Therapeutic Activity 6: resisted walking Activity 6 Comment: sideways x5 and backwards x10; 70# d/b Therapeutic Activity 9: TKE Activity 9 Comment: Lvl 2; 2x10 B Home Exercise Program: Encouraged to add TB to 3 way hips Assessment Skilled physical therapy interventions utilized to improve patient?s impairments and work towards established goals. Patient response to treatment: Activity for strength, ROM, and stabilization of hip, core, and back. Proper mechanics, no increased symptoms and minimal cues for mechanics. Patient will benefit from continued physical therapy to address pain, ROM, and strength. The rationale for today?s treatment was explained to the patient. Verbal cues were provided for correct form with all exercises. Advised patient to continue with Home Exercise Program (HEP). Goals General/Ortho Patient will be able to walk 2 miles without pain to improve community ambulation. (Progressing) Start: 08/14/24 Expected End: 10/15/24 Patient will decrease Oswestry Disability Index from a 15 to a 5 to show a decrease in pain with ADLs. (Not Addressed) Start: 08/14/24 Expected End: 10/15/24 Patient will increase R hip flexion from a 72 and L hip flexion from a 100 to 120 for improve gait. (Progressing) Start: 08/14/24 Expected End: 10/15/24 Patient will increase hip strength to a 5/5 to improve ability to complete functional tasks. (Progressing) Start: 08/14/24 Expected End: 10/15/24 Plan Plan for next session: Progress hip and core as tolerated. Consider Sports Cord activities. Time Entry Total Treatment Time Start Time: 931 Stop Time: 958 Time Calculation (min): 27 min PT Therapeutic Procedures Time Entry Therapeutic Activity Time Entry: Jhon Kidd PTA [facility] Progress Noteon 09-23-2024 Progress Note [facility] [place] [address] [place] [address] Dept: [phone] Dept PHYSICAL THERAPY TREATMENT Patient Name: Ilir Macario : 1950 Date of Service: 09/23/2024 Referring Provider: Danial Dempsey MD Visit #: 12 Diagnosis: Lumbar back pain with radiculopathy affecting left lower extremity Subjective Ilir says he is doing well today. Did a lot of hot air balloon flying over the weekend. Compliance with HEP: Yes Objective Objective measurements not taken today. Treatment Therapeutic Activity # of Activities: 10 Therapeutic Activity 1: NuStep warm up for endurance and ROM Activity 1 Comment: x3 min lvl 8, x3 min lvl 6, seat 10 Therapeutic Activity 3: Rows/Pull Downs Activity 3 Comment: 2x10; 40# Therapeutic Activity 4: Step Ups Activity 4 Comment: 6 3x10 forward and lateral Therapeutic Activity 5: Mini Squats on foam Activity 5 Comment: 2x10 Therapeutic Activity 6: resisted walking Activity 6 Comment: sideways and backwards 60# 5x d/b each Therapeutic Activity 7: BOSU Lunge Activity 7 Comment: Forward and Lateral 3x10 ea Home Exercise Program: Progressed home exercise program Assessment Skilled physical therapy interventions utilized to improve patient?s impairments and work towards established goals. Progressions of Le strength and stability today Patient response to treatment: able to complete all exercises, fatigued post session indicating a proper challenge Patient will benefit from continued physical therapy to reduce pain, improve strength, increase stability, and progress to higher levels of functioning The rationale for today?s treatment was explained to the patient. Verbal cues were provided for correct form with all exercises. Advised patient to continue with Home Exercise Program (HEP). Goals General/Ortho Patient will be able to walk 2 miles without pain to improve community ambulation. (Progressing) Start: 08/14/24 Expected End: 10/15/24 Patient will decrease Oswestry Disability Index from a 15 to a 5 to show a decrease in pain with ADLs. (Not Addressed) Start: 08/14/24 Expected End: 10/15/24 Patient will increase R hip flexion from a 72 and L hip flexion from a 100 to 120 for improve gait. (Progressing) Start: 08/14/24 Expected End: 10/15/24 Patient will increase hip strength to a 5/5 to improve ability to complete functional tasks. (Progressing) Start: 08/14/24 Expected End: 10/15/24 Plan Plan for next session: sport cord exercises, 3 way hip resisted, TKE Time Entry Total Treatment Time Start Time: 1515 Stop Time: 1555 Time Calculation (min): 40 min PT Therapeutic Procedures Time Entry Therapeutic Activity Time Entry: 40 [place], PT Normal [facility] Progress Noteon 09-19-2024 Progress Note [facility] [place] [address] [place] [address] Dept: [phone] Dept PHYSICAL THERAPY TREATMENT Patient Name: Ilir Macario : 1950 Date of Service: 09/19/2024 Referring Provider: Danial Dempsey MD Visit #: 11 Diagnosis: Lumbar back pain with radiculopathy affecting left lower extremity Mechanism of injury: insidious onset and worsening of low back pain Patient Preferences: Ilir Precautions/Red Flags: Yes HTN Subjective No new complaints since last visit. Compliance with HEP: Yes Objective Objective measurements not taken today. Treatment Therapeutic Activity # of Activities: 10 Therapeutic Activity 1: NuStep warm up for endurance and ROM Activity 1 Comment: x3 min lvl 8, x3 min lvl 6, seat 10 Therapeutic Activity 3: Rows/Pull Downs Activity 3 Comment: 2x10; 40# Therapeutic Activity 4: Step Ups Activity 4 Comment: 4 2x10 forward and lateral Therapeutic Activity 5: Mini Squats on foam Activity 5 Comment: 2x10 Therapeutic Activity 7: BOSU Lunge Activity 7 Comment: Forward and Lateral x10 ea Therapeutic Activity 8: Blaze Pod Obstacle Course 2x2 min Activity 8 Comment: Over Katheryn, On Foam, 4/8 step, flat ground; 20 taps, 26 taps. Soft Tissue Mobilization Location: STM to B lumbar paraspinals, lower thoracic paraspinals Body Position: Prone Comments: Reports most discomfort in superior lumbar paraspinals Home Exercise Program: Deferred Assessment Skilled physical therapy interventions utilized to improve patient?s impairments and work towards established goals. Patient response to treatment: Patient doing well with activity this date with slight cervical flexion. Patient taking time with Blaze pod activity, and felt relief from STM. Performed postural activity with appropriate mechanics. Patient will benefit from continued physical therapy to address pain, ROM, and strength. The rationale for today?s treatment was explained to the patient. Verbal cues were provided for correct form with all exercises. Advised patient to continue with Home Exercise Program (HEP). Goals General/Ortho Patient will be able to walk 2 miles without pain to improve community ambulation. (Progressing) Start: 08/14/24 Expected End: 10/15/24 Patient will decrease Oswestry Disability Index from a 15 to a 5 to show a decrease in pain with ADLs. (Progressing) Start: 08/14/24 Expected End: 10/15/24 Patient will increase R hip flexion from a 72 and L hip flexion from a 100 to 120 for improve gait. (Progressing) Start: 08/14/24 Expected End: 10/15/24 Patient will increase hip strength to a 5/5 to improve ability to complete functional tasks. (Progressing) Start: 08/14/24 Expected End: 10/15/24 Plan Plan for next session: Continue current program and progress as tolerated. Time Entry Total Treatment Time Start Time: 917 Stop Time: 1001 Time Calculation (min): 43 min PT Therapeutic Procedures Time Entry Therapeutic Exercise Time Entry: 35 Manual Therapy Time Entry: 8 Jhon Kidd PTA [facility] Progress Noteon 09-17-2024 Progress Note [facility] [place] [address] [place] [address] Dept: [phone] Dept PHYSICAL THERAPY TREATMENT Patient Name: Ilir Macario : 1950 Date of Service: 09/17/2024 Referring Provider: Danial Dempsey MD Visit #: 10 Diagnosis: Lumbar back pain with radiculopathy affecting left lower extremity Mechanism of injury: insidious onset and worsening of low back pain Patient Preferences: Ilir Precautions/Red Flags: Yes HTN Subjective Patient reporting back and leg feel okay. The more activity performed, the back feels worse. The knee is most stiff in the morning. Compliance with HEP: Yes Objective Objective measurements not taken today. Treatment Therapeutic Activity # of Activities: 10 Therapeutic Activity 1: NuStep warm up for endurance and ROM Activity 1 Comment: x6 min, seat 10, lvl 4 Therapeutic Activity 2: Paloff Press Activity 2 Comment: 2x10; 40# Therapeutic Activity 3: Rows/Pull Downs Activity 3 Comment: 2x10; 40# Therapeutic Activity 4: Step Ups Activity 4 Comment: 4 2x10 forward and lateral Therapeutic Activity 5: Mini Squats Activity 5 Comment: 2x10 Therapeutic Activity 6: SLS on Foam Activity 6 Comment: x30 B FTS Soft Tissue Mobilization Location: STM to B lumbar paraspinals, lower thoracic paraspinals Home Exercise Program: Deferred Assessment Skilled physical therapy interventions utilized to improve patient?s impairments and work towards established goals. Patient response to treatment: Patient tolerating activity well throughout today's session with no increased symptoms. [place] benefit from STM. Patient will benefit from continued physical therapy to address pain, ROM, and strength. The rationale for today?s treatment was explained to the patient. Verbal cues were provided for correct form with all exercises. Advised patient to continue with Home Exercise Program (HEP). Goals General/Ortho Patient will be able to walk 2 miles without pain to improve community ambulation. (Progressing) Start: 08/14/24 Expected End: 10/15/24 Patient will decrease Oswestry Disability Index from a 15 to a 5 to show a decrease in pain with ADLs. (Progressing) Start: 08/14/24 Expected End: 10/15/24 Patient will increase R hip flexion from a 72 and L hip flexion from a 100 to 120 for improve gait. (Progressing) Start: 08/14/24 Expected End: 10/15/24 Patient will increase hip strength to a 5/5 to improve ability to complete functional tasks. (Progressing) Start: 08/14/24 Expected End: 10/15/24 Plan Plan for next session: Progress hip and core as tolerated while focusing on LE strength and stability. Introduce balance. Time Entry Total Treatment Time Start Time: 925 Stop Time: 1003 Time Calculation (min): 38 min PT Therapeutic Procedures Time Entry Therapeutic Activity Time Entry: 26 Manual Therapy Time Entry: 12 Jhon Kidd PTA Normal [facility] BASIC METABOLIC PANELon 08-0 Anion gap [Moles/Vol] 9 mmol/L Normal 3-13 [facility] Comment on above: Performed By: #### L AB15 #### Carton Liner: JEET LINK ([id number]) [facility] ([facility] [address] Calcium [Mass/Vol] 8.9 mg/dL Normal 8.8-10.0 [facility] Comment on above: Performed By: #### L AB15 #### Carton Liner: JEET LINK ([id number]) [facility] [place] ([facility]) [address] Chloride [Moles/Vol] 106 mmol/L Normal 98-107 [facility] Comment on above: Performed By: #### L AB15 #### Carton Liner: JEET LINK ([id number]) [facility] [place] ([facility]) [address] CO2 [Moles/Vol] 24 mmol/L Normal 23-31 [facility] Comment on above: Performed By: #### L AB15 #### Carton Liner: JEET LINK ([id number]) [facility] ([facility] [address] Creatinine [Mass/Vol] 0.93 mg/dL Normal 0.72-1.25 [facility] Comment on above: Performed By: #### L AB15 #### Carton Liner: JEET LINK ([id number]) [facility] ([facility]) [address] [place] [address] [place] GLOMERULAR FILTRATION RATE ML/MIN/1.73 SQ M.PREDICTED 87.2 mL/min/1.73m*2 Normal >60.0 [facility] Comment on above: Result Comment: Calc ulation based on the Chronic Kidney Disease Epidemiology Collaboration (CKD-EPI) equation refit without adjustment for race Performed By: #### L AB15 #### Carton Liner: JEET LINK ([id number]) [facility] ([facility]) [address] [place] [address] [place] Glucose [Mass/Vol] 114 mg/dL Normal 82-115 [facility] Comment on above: Performed By: #### L AB15 #### Carton Liner: JEET LINK ([id number]) [facility] ([facility]) [address] Potassium [Moles/Vol] 4.3 mmol/L Normal 3.5-5.1 [facility] Comment on above: Result Comment: [facility] potassium values may be up to 0.5 mmol/L lower than serum values. Performed By: #### L AB15 #### Carton Liner: JEET LINK ([id number]) [facility] ([facility]) [address] Sodium [Moles/Vol] 139 mmol/L Normal 136-145 [facility] Comment on above: Performed By: #### L AB15 #### Carton Liner: JEET LINK ([id number]) [facility] ([facility]) [address] Urea nitrogen [Mass/Vol] 16 mg/dL Normal 9-23 [facility] Comment on above: Performed By: #### L AB15 #### Carton Liner: JEET LINK ([id number]) [facility] [address] Basic metabolic 1998 panelon 09-13-2024 Anion gap [Moles/Vol] 9 mmol/L 3 - 13 mmol/L [facility] Calcium [Mass/Vol] 8.9 mg/dL 8.8 - 10. 0 mg/dL [facility] [facility] Chloride [Moles/Vol] 106 mmol/L 98 - 10 7 mmol/L [facility] CO2 [Moles/Vol] 24 mmol/L 23 - 31 mmol/L [facility] Creatinine [Mass/Vol] 0.93 mg/dL 0.72 - 1.25 mg/dL [facility] GFR/1.73 sq M.predicted (S/P/Bld) [Vol rate/Area] 87.2 mL/min - PINF [facility] Comment on above: Calculation based on the Chronic Kidney Disease Epidemiology Collaboration (CKD-EPI) equation refit without adjustment for race Glucose [Mass/Vol] 114 mg/dL 82 - 115 mg/dL [facility] Interpretation and review of laboratory results Normal [facility] Potassium [Moles/Vol] 4.3 mmol/L 3.5 - 5.1 mmol/L [facility] Comment on above: Plasma potassium rubio ues may be up to 0.5 mmol/L lower than serum values. Sodium [Moles/Vol] 139 mmol/L 136 - 145 mmol/L [facility] Urea nitrogen [Mass/Vol] 16 mg/dL 9 - 23 mg/dL [facility] CBC W Auto Differential pane l (Bld)on 09-13-2024 Basophils (Bld) [#/Vol] 0 10*3/uL 0.0 - 0.2 10*3/uL [facility] Basophils/100 WBC (Bld) 0.6 % 0.0 - 2.0 % [facility] Eosinophils (Bld) [#/Vol] 0.3 10*3/uL 0.0 - 0.5 10*3/uL [facility] Eosinophils/100 WBC (Bld) 4.1 % 0.0 - 6.0 % [facility] Erythrocyte distribution width (RBC) [Ratio] 14.3 % 11.5 - 15.0 % [facility] Hematocrit (Bld) [Volume fraction] 38.6 % Low 40.0 - 52.0 % [facility] Hemoglobin (Bld) [Mass/Vol] 12.9 g/dL Low 13.0 - 18.0 g/dL [facility] Immature granulocytes (Bld) [#/Vol] 0 10*3/uL NINF - 0.1 10*3/uL [facility] Immature granulocytes/100 WBC (Bld) 0.3 % 0.0 - 2.0 % [facility] Interpretation and review of laboratory results Abnormal [facility] Lymphocytes (Bld) [#/Vol] 1.7 10*3/uL 1.0 - 4.3 10*3/uL [facility] Lymphocytes/100 WBC (Bld) 26.5 % 15.0 - 45.0 % [facility] MCH (RBC) [Entitic mass] 29.1 pg 26.0 - 34.0 pg [facility] MCHC (RBC) [Mass/Vol] 33.4 % 30.5 - 36.0 % [facility] MCV (RBC) [Entitic vol] 87.1 fL 77.0 - 99.0 fL [facility] Monocytes (Bld) [#/Vol] 0.6 10*3/uL 0.0 - 0.9 10*3/uL [facility] Monocytes/100 WBC (Bld) 9 % 5.0 - 13.0 % [facility] Neutrophils (Bld) [#/Vol] 3.9 10*3/uL 1.8 - 7.5 10*3/uL [facility] Neutrophils/100 WBC (Bld) 59.5 % 38.0 - 82.0 % [facility] Nucleated RBC/100 WBC (Bld) [Ratio] 0 % [facility] [employer] Platelet mean volume (Bld) [Entitic vol] 9.2 fL 9.0 - 12.7 fL [facility] Platelets (Bld) [#/Vol] 247 10*3/uL 140 - 440 10*3/uL [facility] RBC (Bld) [#/Vol] 4.43 10*6/uL 4.40 - 5.9 0 10*6/uL [facility] WBC (Bld) [#/Vol] 6.5 10*3/uL 3.6 - 10.7 10*3/uL [facility] CBC WITH AUTO DIFFERENTIALon 09-13-2024 Basophils (Bld) [#/Vol] 0.0 10*3/uL Normal 0.0-0.2 [facility] Comment on above: Performed By: #### L [id number] #### Carton Liner: JEET LINK ([id number]) [facility] ([facility]) [address] Basophils/100 WBC (Bld) 0.6 % Normal 0.0-2.0 [facility] Comment on above: Performed By: #### L [id number] #### Carton Liner: JEET LINK ([id number]) [facility] [address] Eosinophils (Bld) [#/Vol] 0.3 10*3/uL Normal 0.0-0.5 [facility] Comment on above: Performed By: #### L [id number] #### Carton Liner: JEET LINK ([id number]) [facility] ([facility]) [address] Eosinophils/100 WBC (Bld) 4.1 % Normal 0.0-6.0 [facility] Comment on above: Performed By: #### L [id number] #### Carton Liner: JEET LINK ([id number]) [facility] [address] Erythrocyte distribution width (RBC) [Ratio] 14.3 % Normal 11.5-15.0 [facility] Comment on above: Performed By: #### L [id number] #### Carton Liner: JEET LINK ([id number]) [facility] ([facility]) [address] [place] [address] Hematocrit (Bld) [Volume fraction] 38.6 % Low 40.0-52.0 [facility] Comment on above: Performed By: #### L [id number] #### Carton Liner: JEET LINK ([id number]) [facility] ([facility]) [address] Hemoglobin (Bld) [Mass/Vol] 12.9 g/dL Low 13.0-18.0 [facility] Comment on above: Performed By: #### L [id number] #### Carton Liner: JEET LINK ([id number]) [facility] [address] IMMATURE GRANS % 0.3 % Normal 0.0-2.0 [facility] Comment on above: Performed By: #### L [id number] #### Carton Liner: JEET LINK ([id number]) [facility] [address] IMMATURE GRANS ABSOLUTE 0.0 10*3/uL Normal <0.1 [facility] Comment on above: Performed By: #### L [id number] #### Carton Liner: JEET LINK ([id number]) [facility] [address] Lymphocytes (Bld) [#/Vol] 1.7 10*3/uL Normal 1.0-4.3 [facility] Comment on above: Performed By: #### L [id number] #### Carton Liner: JEET LINK ([id number]) [facility] ([facility]) [address] Lymphocytes/100 WBC (Bld) 26.5 % Normal 15.0-45.0 [facility] Comment on above: Performed By: #### L [id number] #### Carton Liner: JEET LINK ([id number]) [facility] ([facility]) [address] MCH (RBC) [Entitic mass] 29.1 pg Normal 26.0-34.0 [facility] Comment on above: Performed By: #### L [id number] #### Carton Liner: JEET LINK ([id number]) [facility] ([facility]) [address] MCHC 33.4 % Normal 30.5-36.0 [facility] Comment on above: Performed By: #### L [id number] #### Carton Liner: JEET LINK ([id number]) [facility] ([facility]) [address] MCV (RBC) [Entitic vol] 87.1 fL Normal 77.0-99.0 [facility] Comment on above: Performed By: #### L [id number] #### Carton Liner: JEET LINK ([id number]) [facility] ([facility]) [address] Monocytes (Bld) [#/Vol] 0.6 10*3/uL Normal 0.0-0.9 [facility] Comment on above: Performed By: #### L [id number] #### Carton Liner: JEET LINK ([id number]) [facility] [place] [facility]) [address] [place] [address] [place] Monocytes/100 WBC (Bld) 9.0 % Normal 5.0-13.0 [facility] Comment on above: Performed By: #### L [id number] #### Carton Liner: JEET LINK ([id number]) [facility] [address] NEUTROPHILS ABSOLUTE 3.9 10*3/uL Normal 1.8-7.5 [facility] Comment on above: Performed By: #### L [id number] #### Carton Liner: JEET LINK ([id number]) [facility] ([facility] [address] Neutrophils/100 WBC (Bld) 59.5 % Normal 38.0-82.0 [facility] Comment on above: Performed By: #### L [id number] #### Carton Liner: JEET LINK ([id number]) [facility] ([facility]) [address] NRBC 0.0 /100 WBCs Normal 0.0-2.0 [facility] Comment on above: Performed By: #### L [id number] #### Carton Liner: JEET LINK ([id number]) [facility] ([facility] [address] [place] [address] [place] Platelet mean volume (Bld) [Entitic vol] 9.2 fL Normal 9.0-12.7 [facility] Comment on above: Performed By: #### L [id number] #### Carton Liner: JEET LINK ([id number]) [facility] ([facility] [address] [place] [address] [place] Platelets (Bld) [#/Vol] 247 10*3/uL Normal 140-440 [facility] Comment on above: Performed By: #### L [id number] #### Carton Liner: JEET LINK ([id number]) [facility] ([facility]) [address] RBC (Bld) [#/Vol] 4.43 10*6/uL Normal 4.40-5.90 [facility] Comment on above: Performed By: #### L [id number] #### Carton Liner: JEET LINK ([id number]) [facility] ([facility]) [address] WBC (Bld) [#/Vol] 6.5 10*3/uL Normal 3.6-10.7 [facility] Comment on above: Performed By: #### L [id number] #### Carton Liner: JEET LINK ([id number]) [facility] ([facility]) [address] Neck W contrast Gulshan 08-0 Patient Name: [facility]BDIFATA[facility] 1950 [id number] Exam Date/Time: 09/13/2024 10:49 Procedure: CT SOFT TISSUE NECK W IV CONTRAST Ordering Provider: YOUNG AMY Reason For Exam: Pain and swellling right jaw after dental work. On Brilinta EXAMINATION: CT SOFT TISSUE NECK W IV CONTRAST HISTORY: Pain and swelling right jaw after dental work. On Brilinta Technique: CT of the soft tissues of the neck with IV contrast. A series of contiguous helical scans were performed from the skull base to the aortic arch. Dose reduction was employed with automated exposure control. COMPARISON: None. RESULT: Postoperative change: None apparent. Suprahyoid Neck: Nasopharynx and oropharynx appear normal. Parapharyngeal tissue planes are preserved. Oral cavity and floor of mouth appear normal within constraints of artifact from dental amalgam. Parotid and submandibular spaces are normal. [employer] spaces appear normal. Infrahyoid Neck: Hypopharynx, larynx, and imaged infraglottic trachea appear normal. Imaged upper esophagus is unremarkable. Thyroid gland is homogeneous without evidence of discrete nodule. Lymph Nodes: No cervical lymphadenopathy by size criteria. Carotid Space: No masses. Patent extracranial carotid systems and internal jugular veins bilaterally. Orbits, Face and Skull Base: Orbital soft tissue planes are preserved. Paranasal sinuses are clear. Mastoid air cells and middle ear cavities are clear. No evidence of an osteolytic or osteoblastic process in the skull base. Imaged intracranial contents: No enhancement, no mass effect, and no hydrocephalus. Cervical spine and remaining osseous structures: Alignment is normal. No discrete osteolytic or osteoblastic process. Moderate spondylotic changes in the visualized spine. Lung apices: No mass and no focal consolidation in imaged lung apices. Other: Not applicable. [facility] Rambo Boyer MD - 09/13/2024 Patient Name: ABDIFATAH MACARIO : 1950 [id number] Exam Date/Time: 09/13/2024 10:49 Procedure: CT SOFT TISSUE NECK W IV CONTRAST Ordering Provider: YOUNG AMY Reason For Exam: Pain and swellling right jaw after dental work. On Brilinta EXAMINATION: CT SOFT TISSUE NECK W IV CONTRAST HISTORY: Pain and swelling right jaw after dental work. On Brilinta Technique: CT of the soft tissues of the neck with IV contrast. A series of contiguous helical scans were performed from the skull base to the aortic arch. Dose reduction was employed with automated exposure control. COMPARISON: None. RESULT: Postoperative change: None apparent. Suprahyoid Neck: Nasopharynx and oropharynx appear normal. Parapharyngeal tissue planes are preserved. Oral cavity and floor of mouth appear normal within constraints of artifact from dental amalgam. Parotid and submandibular spaces are normal. [employer] spaces appear normal. Infrahyoid Neck: Hypopharynx, larynx, and imaged infraglottic trachea appear normal. Imaged upper esophagus is unremarkable. Thyroid gland is homogeneous without evidence of discrete nodule. Lymph Nodes: No cervical lymphadenopathy by size criteria. Carotid Space: No masses. Patent extracranial carotid systems and internal jugular veins bilaterally. Orbits, Face and Skull Base: Orbital soft tissue planes are preserved. Paranasal sinuses are clear. Mastoid air cells and middle ear cavities are clear. No evidence of an osteolytic or osteoblastic process in the skull base. Imaged intracranial contents: No enhancement, no mass effect, and no hydrocephalus. Cervical spine and remaining osseous structures: Alignment is normal. No discrete osteolytic or osteoblastic process. Moderate spondylotic changes in the visualized spine. Lung apices: No mass and no focal consolidation in imaged lung apices. Other: Not applicable. IMPRESSION: Evaluation of the oral cavity and overlying soft tissues is limited due to extensive beam hardening artifact from dental amalgam. Within limits of the examination, unremarkable exam. Report Dictated on Electronically Signed By: Rambo Boyer MD Electronically Signed Date/Time: 09/13/2024 11:05 AM EDT [employer] Radiology Study observation (narrative) Issue CT Neck W contrast IVOrdered By: Rambo Boyer on 09-13-2024 Issue Work Phone: CT SOFT TISSUE NECK W IV CON TRASTon 09-13-2024 CT SOFT TISSUE NECK W IV CONTRAST Patient Name: ABDIFATAH MACARIO : 1950 [id number] Exam Date/Time: 09/13/2024 10:49 Procedure: CT SOFT TISSUE NECK W IV CONTRAST Ordering Provider: YOUNG AMY Reason For Exam: Pain and swellling right jaw after dental work. On Brilinta EXAMINATION: CT SOFT TISSUE NECK W IV CONTRAST HISTORY: Pain and swelling right jaw after dental work. On Brilinta Technique: CT of the soft tissues of the neck with IV contrast. A series of contiguous helical scans were performed from the skull base to the aortic arch. Dose reduction was employed with automated exposure control. COMPARISON: None. RESULT: Postoperative change: None apparent. Suprahyoid Neck: Nasopharynx and oropharynx appear normal. Parapharyngeal tissue planes are preserved. Oral cavity and floor of mouth appear normal within constraints of artifact from dental amalgam. Parotid and submandibular spaces are normal. [employer] spaces appear normal. Infrahyoid Neck: Hypopharynx, larynx, and imaged infraglottic trachea appear normal. Imaged upper esophagus is unremarkable. Thyroid gland is homogeneous without evidence of discrete nodule. Lymph Nodes: No cervical lymphadenopathy by size criteria. Carotid Space: No masses. Patent extracranial carotid systems and internal jugular veins bilaterally. Orbits, Face and Skull Base: Orbital soft tissue planes are preserved. Paranasal sinuses are clear. Mastoid air cells and middle ear cavities are clear. No evidence of an osteolytic or osteoblastic process in the skull base. Imaged intracranial contents: No enhancement, no mass effect, and no hydrocephalus. Cervical spine and remaining osseous structures: Alignment is normal. No discrete osteolytic or osteoblastic process. Moderate spondylotic changes in the visualized spine. Lung apices: No mass and no focal consolidation in imaged lung apices. Other: Not applicable. IMPRESSION: Evaluation of the oral cavity and overlying soft tissues is limited due to extensive beam hardening artifact from dental amalgam. Within limits of the examination, unremarkable exam. Report Dictated on Electronically Signed By: Rambo Boyer MD Electronically Signed Date/Time: 09/13/2024 11:05 AM EDT [facility] ED Provider Noteon ED Provider Note [facility] ED eMERGENCY dEPARTMENT eNCOUnter Pt Name: Abdifatah Macario Birthdate 1950 Date of evaluation: 09/13/2024 Provider: Tangela Young PA-C CHIEF COMPLAINT Chief Complaint Patient presents with Jaw Pain Pt states he had dental surgery on and has had increased pain on right jaw since then. Pt believes he might have some swelling. Denies bleeding or drainage HISTORY OF PRESENT ILLNESS (Location/Symptom, Timing/Onset,Context/S etting, Quality, Duration, Modifying Factors, Severity) Note limiting factors. HPI Abdifatah Macario is a 73 y.o. male who presents to the emergency department complaining of worsening right jaw pain after dental procedure this past Sunday. Patient is being fitted for a bridge. He had 4 dental blocks done as they had some difficulty getting him completely comfortable. He states he is having increasing pain and at one of the injection sites and is concerned he may have an abscess versus a hematoma as he is on anticoagulation therapy. He states he is having difficulty fully opening his jaw. No complaint of fever. Nursing Notes were reviewed. REVIEW OF SYSTEMS (2+ for4; 10+ for level 5) Review of Systems Constitutional: Negative for chills and fever. HENT: Positive for dental problem. Negative for ear pain and sore throat. Eyes: Negative for pain and visual disturbance. Respiratory: Negative for cough and shortness of breath. Cardiovascular: Negative for chest pain and palpitations. Gastrointestinal: Negative for abdominal pain and vomiting. Genitourinary: Negative for dysuria and hematuria. Musculoskeletal: Negative for arthralgias and back pain. Skin: Negative for color change and rash. Neurological: Negative for seizures and syncope. All other systems reviewed and are negative. PAST MEDICAL HISTORY Medical History[1] SURGICALHISTORY Surgical History[2] CURRENT MEDICATIONS Discharge Medication List as of 09/13/2024 11:32 AM CONTINUE these medications which have NOT CHANGED Details aspirin 81 MG EC tablet Take 81 mg by mouth daily., Historical Med cholecalciferol (Vitamin D-3) 50 MCG (1999 UT) tablet Take by mouth., Historical Med coenzyme Q-10 200 MG capsule Take 1 tablet by mouth in the morning., Historical Med cyanocobalamin (Vitamin B-12) 1000 MCG tablet Take 2,000 mcg by mouth in the morning., Historical Med famotidine (Pepcid) 20 MG tablet TAKE ONE TABLET BY MOUTH AT BEDTIME DIRECTED, Historical Med furosemide (Lasix) 20 MG tablet TAKE 1-2 TABLETS DAILY NEEDED FOR DECREASING EDEMA, Normal ipratropium (Atrovent) 0.03 % nasal spray USE 2 SPRAYS IN EACH NOSTRIL EVERY 12 HOURS NEEDED FOR RHINITIS, Normal magnesium oxide (Mag-Ox) 400 MG tablet Take 400 mg by mouth Daily as needed (CRAMPS)., Historical Med metaxalone (Skelaxin) 800 MG tablet Take 1 tablet (800 mg) by mouth 2 times daily as needed for muscle spasms., Starting Sun03/07/2024, Until 03/07/2025 at 2359, Normal metoprolol tartrate (Lopressor) 25 MG tablet Take 25 mg by mouth 2 times daily., Historical Med MULTIPLE VITAMINS-MINERALS PO Take 1 tablet by mouth in the morning., Historical Med omega-3 (fish oil) 1400 MG capsule Take 1,000 mg by mouth daily., Historical Med pantoprazole (ProtoNix) 40 MG EC tablet TAKE 1 TABLET DAILY, Starting 11/27/2022, Normal potassium chloride ER (Micro-K) 10 MEQ ER capsule Take 1 capsule (10 mEq) by mouth 2 times daily. Do not crush or chew., Starting 11/28/2023, Until Katelyn 11/27/2024, Normal rosuvastatin (Crestor) 40 MG tablet TAKE 1 TABLET NIGHTLY, Starting Sun02/27/2024, Normal tamsulosin (Flomax) 0.4 MG 24 hr capsule TAKE 1 CAPSULE DAILY, Starting 04/07/2024, Normal ticagrelor (Brilinta) 90 MG tablet Take 90 mg by mouth 2 times daily., Historical Med Patient has no known allergies. FAMILY HISTORY Family History[3] SOCIAL HISTORY Social History[4] SCREENINGS PHYSICAL EXAM (5+ for level 4, 8+ for level 5) @EDTRIAGEVSS@ Physical Exam Vitals and nursing note reviewed. Constitutional: General: He is not in acute distress. Appearance: Normal appearance. He is well-developed. HENT: Head: Normocephalic and atraumatic. Mouth/Throat: Mouth: Mucous membranes are moist. Eyes: Conjunctiva/sclera: Conjunctivae normal. Cardiovascular: Rate and Rhythm: Normal rate and regular rhythm. Heart sounds: No murmur heard. Pulmonary: Effort: Pulmonary effort is normal. No respiratory distress. Breath sounds: Normal breath sounds. Musculoskeletal: General: No swelling. Skin: General: Skin is warm and dry. Capillary Refill: Capillary refill takes less than 2 seconds. Neurological: General: No focal deficit present. Mental Status: He is alert and oriented to person, place, and time. Psychiatric: Mood and Affect: Mood normal. Behavior: Behavior normal. DIAGNOSTIC RESULTS EKG (Per Emergency Physician): RADIOLOGY (Per EmergencyPhysici (more content not included)... Normal [facility] Progress Noteon 09-11-2024 Progress Note [facility] AT [address] [place] [address] Dept: [phone] Dept PHYSICAL THERAPY RE-EVALUATION Patient Name: Ilir Macario : 1950 Date of Service: 09/11/2024 Referring Provider: Danial Dempsey MD Visit #: 9 Diagnosis: Lumbar back pain with radiculopathy affecting left lower extremity Mechanism of injury: insidious onset and worsening of low back pain Patient Preferences: Ilir Precautions/Red Flags: Yes HTN Subjective General Comments: Ilir believes that he has made progress with physical therapy. Feels stronger and thinks that he is walking better (occasionally). Says walking goes back to being uncomfortable when he is fatigued. 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 Says his endurance is better but still gets painful after. Says that yard work he can do it for longer but still reaches a point where he has pain. Says he is able to lift light-moderate weight. Says he stops doing things when it starts to get painful. Says STM helps a lot. Pain: Current: 2/10, across superior lumbar spine Best: 2/10 Worst: 6/10 Current Level of Function: independent Patient?s Stated Goal: decrease pain Objective Previous ROM Trunk AROM Percentage Comments Flexion (flex) 100 pain Extension (ext) 25 pain Right side bending (SBR) 50 pain Left side bending (SBL) 50 Right rotation (rotR) 100 Slight pain Left rotation (rotL) 100 Slight pain Date Recorded: Comments Lower Extremity ROM Right Left AROM AROM Hip Flexion 72 100 Pain on R BACK Oswestry Disability Index (X/50): 13 Posture/Observation: forward head and rounded shoulders Gait: forward trunk lean, dragging of heels Date Recorded: 09/11/2024 Trunk AROM Percentage Comments Flexion (flex) 100 Pain at bottom across back Extension (ext) 0 pain Right side bending (SBR) 100 pain Left side bending (SBL) 80 pain Right rotation (rotR) 100 Slight pain Left rotation (rotL) 100 Slight pain Date Recorded: 09/11/2024 Comments Lower Extremity ROM Right Left AROM AROM Hip Flexion 90 115 Myotomes/LE Strength Right X/5 Left X/5 Comments Hip Flexion (L2-L3) 5 5 Hip Abduction 5 5 Hip Extension 4+ 4+ Pain in front right hip when testing L Knee Extension (L3-L4) 5 5 Knee Flexion (S2) 5 5 Ankle DF (L5) 5 5 Ankle PF (S1) 5 5 Joint Mobility: hypomobile lumbar spine Palpation: TTP along whole right paraspinals, spinous processes and R paraspinals of L1-L3 Flexibility: no abnormalities Special Tests: Straight Leg Raise: right negative and left negative 5 time Gwa-ly-Ialbk (seconds): 18.79 - Use of upper extremities?: No - Chair Height (standard chair 16-18 inches): 17 Functional Squat: narrow ALBER, excessive forward lean SLS: R: 4 sec L: 20 sec Assessment Ilir has made good progress while completing skilled physical therapy. He has made improvements in his LE strength, lumbar ROM, and hip ROM. Functionally, Ilir has improved his 5 time STS by decreasing the time while not using UE support and he is able to complete functional activities for longer before needing to take a break. Despite these improvements, Ilir still experiences pain while completing functional activities, decreased hip ROM, decreased SLS time, and excessive 5 time STS time. These deficits prevent Ilir from completing functional activities to his full ability. Therefore, Ilir would benefit from continuing skilled physical therapy to improve these deficits. Rehab Potential: Good Goals Active General/Ortho Patient will be able to walk 2 miles without pain to improve community ambulation. (Progressing) Start: 08/14/24 Expected End: 10/15/24 Patient will decrease Oswestry Disability Index from a 15 to a 5 to show a decrease in pain with ADLs. (Progressing) Start: 08/14/24 Expected End: 10/15/24 Patient will increase R hip flexion from a 72 and L hip flexion from a 100 to 120 for improve gait. (Progressing) Start: 08/14/24 Expected End: 10/15/24 Patient will increase hip strength to a 5/5 to improve ability to complete functional tasks. (Progressing) Start: 08/14/24 Expected End: 10/15/24 Plan Frequency and Duration: 2/wk for 4 weeks Therapeutic Contents: client education, group therapy, home exercise program, manual therapy techniques, neuromuscular re-education, therapeutic activities, therapeutic exercise, trigger point dry needle, and modalities as needed Plan for next session: continue MT, progress standing donkey kicks by adding a band, add mini-squats and SLS on foam Risks and benefits were discussed with the patient and/or family, and the patient and/or family participated with the plan of care and agrees. Treatment Therapeutic Exercise Therapeutic Exercise Activity 1: paloff press Activity 1 Comment: 2x10, 40# Therapeutic Exercise Activity 2: jenny at Activity 2 (more content not included)... Normal [facility] Progress Noteon 09-09-2024 Progress Note [facility] [place] [address] [place] [address] Dept: [phone] Dept PHYSICAL THERAPY TREATMENT Patient Name: Ilir Macario : 1950 Date of Service: 09/09/2024 Referring Provider: Danial Dempsey MD Visit #: 8 Diagnosis: Lumbar back pain with radiculopathy affecting left lower extremity Mechanism of injury: insidious onset and worsening of low back pain Patient Preferences: Ilir Precautions/Red Flags: Yes HTN Subjective Pt reports that he feels like things are moving in the right direction. Feels that STM helps a lot. Compliance with HEP: Yes Objective Objective measurements not taken today. Treatment Therapeutic Exercise # of Activities: 8 Therapeutic Exercise Activity 1: Palloff press Activity 1 Comment: 2 x 10 B, 40# Therapeutic Exercise Activity 2: Rows and PD's w/ TA Activity 2 Comment: 3 x 10 ea, #40 Therapeutic Exercise Activity 3: TA 90/90 Activity 3 Comment: 3 x 10 Therapeutic Exercise Activity 4: Hip hikes at stairs Activity 4 Comment: 3 x 10 B, #2 Therapeutic Exercise Activity 5: S/L hip abd Activity 5 Comment: 2 x 15, OTB Therapeutic Exercise Activity 7: TA 90/90 heel taps Activity 7 Comment: 3 x 10 Therapeutic Exercise Activity 8: Piriformis and figure 4 stretches Activity 8 Comment: x 30 ea B Soft Tissue Mobilization Location: STM to B lumbar paraspinals, lower thoracic paraspinals Body Position: Prone Comments: Reports most discomfort in superior lumbar paraspinals Home Exercise Program: Progressed home exercise program Assessment Skilled physical therapy interventions utilized to improve patient?s impairments and work towards established goals. Patient response to treatment: Continued core and hip strengthening exercises on this date. Added resistance to hip hikes and progressed weight for cable column exercises without issue. Also added OTB for S/L hip abduction, reported feeling a good challenge with progressions today. Also added TA 90/90 heel taps to HEP, good form and tolerance observed. Ended session by continuing STM, reports feeling less tightness in his back post session. Patient will benefit from continued physical therapy to reduce painful symptoms and work towards LTG's. The rationale for today?s treatment was explained to the patient. Verbal cues were provided for correct form with all exercises. Advised patient to continue with Home Exercise Program (HEP). Goals General/Ortho Patient will be able to walk 2 miles without pain to improve community ambulation. (Progressing) Start: 08/14/24 Expected End: 10/15/24 Patient will decrease Oswestry Disability Index from a 15 to a 5 to show a decrease in pain with ADLs. (Progressing) Start: 08/14/24 Expected End: 10/15/24 Patient will increase R hip flexion from a 72 and L hip flexion from a 100 to 120 for improve gait. (Progressing) Start: 08/14/24 Expected End: 10/15/24 Patient will increase hip strength to a 5/5 to improve ability to complete functional tasks. (Progressing) Start: 08/14/24 Expected End: 10/15/24 Plan Plan for next session: Reassess pt Time Entry Total Treatment Time Start Time: 901 Stop Time: 941 Time Calculation (min): 40 min PT Therapeutic Procedures Time Entry Therapeutic Exercise Time Entry: Manual Therapy Time Entry: 14 Almas Rascon PTA [facility] Progress Noteon 09-04-2024 Progress Note [facility] [place] [address] [place] [address] Dept: [phone] Dept PHYSICAL THERAPY TREATMENT Patient Name: Ilir Macario : 1950 Date of Service: 09/04/2024 Referring Provider: Danial Dempsey MD Visit #: 7 Diagnosis: Lumbar back pain with radiculopathy affecting left lower extremity Mechanism of injury: insidious onset and worsening of low back pain Patient Preferences: Ilir Precautions/Red Flags: Yes HTN Subjective Pt reports that he was feeling really good after last session but that he flared his back/ hip up again with yard work, thinks it was from twisting too much. Compliance with HEP: Yes Objective Objective measurements not taken today. Treatment Therapeutic Exercise # of Activities: 7 Therapeutic Exercise Activity 1: Palloff press Activity 1 Comment: 2 x 10 B, 35# (Both handles) Therapeutic Exercise Activity 2: Rows and PD's w/ TA Activity 2 Comment: 3 x 10 ea, #35 Therapeutic Exercise Activity 3: TA 90/90 Activity 3 Comment: 3 x 10 Soft Tissue Mobilization Location: STM to B lumbar paraspinals and proximal to PSIS Body Position: Prone Comments: Reports most discomfort in superior lumbar paraspinals Home Exercise Program: Deferred Assessment Skilled physical therapy interventions utilized to improve patient?s impairments and work towards established goals. Patient response to treatment: Continued core stability and MT combination on this date. Did add in postural stability along with TA exercises, good tolerance and form with both rows and PD's following brief cues for form. Also reviewed TA marches without issue, stated just feeling a good burn in core mm's. Ended session by continuing STM, reports feeling Much better post session. Patient will benefit from continued physical therapy to reduce painful symptoms and benefit QOL. The rationale for today?s treatment was explained to the patient. Verbal cues were provided for correct form with all exercises. Advised patient to continue with Home Exercise Program (HEP). Goals General/Ortho Patient will be able to walk 2 miles without pain to improve community ambulation. (Progressing) Start: 08/14/24 Expected End: 10/15/24 Patient will decrease Oswestry Disability Index from a 15 to a 5 to show a decrease in pain with ADLs. (Progressing) Start: 08/14/24 Expected End: 10/15/24 Patient will increase R hip flexion from a 72 and L hip flexion from a 100 to 120 for improve gait. (Progressing) Start: 08/14/24 Expected End: 10/15/24 Patient will increase hip strength to a 5/5 to improve ability to complete functional tasks. (Progressing) Start: 08/14/24 Expected End: 10/15/24 Plan Plan for next session: Progress core/ hip stability as able, can continue with postural stability as time allows. End with STM. Time Entry Total Treatment Time Start Time: 1032 Stop Time: 1058 Time Calculation (min): 26 min PT Therapeutic Procedures Time Entry Therapeutic Exercise Time Entry: 13 Manual Therapy Time Entry: 13 Almas Rascon PTA Normal [facility] Progress Noteon 09-02-2024 Progress Note [facility] [place] [address] [place] [address] Dept: [phone] Dept PHYSICAL THERAPY TREATMENT Patient Name: Ilir Macario : 1950 Date of Service: 09/02/2024 Referring Provider: Danial Dempsey MD Visit #: 6 Diagnosis: Lumbar back pain with radiculopathy affecting left lower extremity Mechanism of injury: insidious onset and worsening of low back pain Patient Preferences: Ilir Precautions/Red Flags: Yes HTN Subjective Pt reports that his back has been feeling a bit less painful and feels stronger since beginning PT. Did have a bit of a setback from overdoing things over the weekend but is feeling okay currently. Compliance with HEP: Yes Objective Objective measurements not taken today. Treatment Therapeutic Exercise # of Activities: 7 Therapeutic Exercise Activity 1: Palloff press Activity 1 Comment: 3 x 10 B, 30# (Both handles) Therapeutic Exercise Activity 2: Pot stirs Activity 2 Comment: 2 x 10 CW/CCW B, #30 (Both handles) Therapeutic Exercise Activity 3: 3 way hips blue TB Activity 3 Comment: 3 x 10 B Therapeutic Exercise Activity 4: SAPD with core engagement Activity 4 Comment: 3 x 10 Therapeutic Exercise Activity 5: Hip hikes at stairs Activity 5 Comment: 2 x 10 B Therapeutic Exercise Activity 6: TA 90/90 Activity 6 Comment: 2 x 10 Soft Tissue Mobilization Location: STM to B lumbar paraspinals > QL, proximal to PSIS Body Position: Prone Comments: Reports most discomfort in superior lumbar paraspinals Home Exercise Program: Progressed home exercise program Assessment Skilled physical therapy interventions utilized to improve patient?s impairments and work towards established goals. Patient response to treatment: Continued hip and core strengthening exercises on this date. Added several standing core exercises, hip hikes and progressed to TA 90/90 heel taps. Did trial STM/ TPR to end today's session, was notably tender to palpation of lumbar paraspinals. Pt reports feeling fatigued post session but a bit less painful following MT. Patient will benefit from continued physical therapy to muscular stabilization and reduce painful symptoms. The rationale for today?s treatment was explained to the patient. Verbal cues were provided for correct form with all exercises. Advised patient to continue with Home Exercise Program (HEP). Goals General/Ortho Patient will be able to walk 2 miles without pain to improve community ambulation. (Progressing) Start: 08/14/24 Expected End: 10/15/24 Patient will decrease Oswestry Disability Index from a 15 to a 5 to show a decrease in pain with ADLs. (Progressing) Start: 08/14/24 Expected End: 10/15/24 Patient will increase R hip flexion from a 72 and L hip flexion from a 100 to 120 for improve gait. (Progressing) Start: 08/14/24 Expected End: 10/15/24 Patient will increase hip strength to a 5/5 to improve ability to complete functional tasks. (Progressing) Start: 08/14/24 Expected End: 10/15/24 Plan Plan for next session: Progress hip and core strength as tolerated, cont MT if pt feels beneficial Time Entry Total Treatment Time Start Time: 800 Stop Time: 40 Time Calculation (min): 39 min PT Therapeutic Procedures Time Entry Therapeutic Exercise Time Entry: 29 Manual Therapy Time Entry: 10 Almas Rascon, JAROCHO [facility] Office Visiton 09-01-2024 Follow-up visit [id number] Abdifatah Macario 1950 M Date Provider Department Center 09/01/2024 [id number]-AKMXAGOTLSDANIAL DEMPSEY FAMILY P None Family History Problem Relation Age of Onset Liver disease Mother Comments: BAILEY Breast cancer Sister 40 Kidney disease Other Comments: dye-induced renal failre Breast cancer Father's Brother Breast cancer Mother's Sister Family Status - Relation Status Age at Mother Sister Other Father's Brother Alive Mother's Sister Alive Level of Service:23432 [place] OFFICE/OUTPATIENT ESTABLISHED MOD MDM 30 MIN Reason for Visit and Comments: Follow-up [[id number]] - Back and hip pain [facility] Progress Noteon 09-01-2024 Progress Note Continue PT. Awating hip surgery. [facility] Progress Note Controlled with lasi x. Supplemental potassium. Consider magnesium, 400 mg at hs as well to help decrease muscle cramps. [facility] Progress Note Sx's well controlled with protonix daily and pepcid most days as needed for sx's.[place] the near [place]. Normal [facility] Progress Note Stable, controlled. Continue meds as above [facility] Progress Note Brillinta through 11/27/2024, per cardio. Anticipate single platelet therapy after that time. Stable. Continue metoprolol, rosuvastatin, ticagrelor, ASA, Normal [facility] Progress Note Pt asked if they hav e been to specialist,been in ER /hospitalized or had testing since last visit. Yes pt, Patient was able to ambulate safely to the examination room. Provider was not notified of possible fall risk Normal [facility] Progress Note [facility] [address] [facility] [address] Dept: [phone] Dept Loc: [phone] Visit type: Established patient Reason for Visit: Follow-up (Back and hip pain) Assessment and Plan Problem List Items Addressed This Visit Respiratory Incidental lung nodule, > 3mm and < 8mm - Primary Overview Stable 5 mm noncalcified nodule lateral aspect right upper lobe. 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 Mild diffuse LAD, distal disease. Mod luminal disease up to 50% prox circ. [place] [facility] 11/28/2023. See in media Current Assessment & Plan Brillinta through 11/27/2024, per cardio. Anticipate single platelet therapy after that time. Stable. Continue metoprolol, rosuvastatin, ticagrelor, ASA, Essential hypertension Current Assessment & Plan Stable, controlled. Continue meds as above Digestive 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 Overview egd dec 2015 Current Assessment & Plan Sx's well controlled with protonix daily and pepcid most days as needed for sx's.he [place] with [place] in the near future. Endocrine/Metabolic Obesity, morbid (HCC) Prediabetes Overview Insurance will only cover GLP-1 if patient is diabetic. Current Assessment & Plan Declines s metformin which could help decrease likelihood of progression to diabetes but is weight neutral. Continue diet, exercise, awaiting starting GLP1 via study through his supervisor [employer]. Other Capillary leak syndrome Overview Last Assessment & Plan: Assessment: Patient reports this is chronic, started after chemotherapy. Takes Lasix, wears compression stockings. Current Assessment & Plan Controlled with lasix. Supplemental potassium. Consider magnesium, 400 mg at hs as well to help decrease muscle cramps. Lumbar back pain with radiculopathy affecting left lower extremity Current Assessment & Plan Continue PT. Awating hip surgery. Follow up in about 4 months (around 01/02/2025) for blood pressure, cad, edema, back and hip pain. Dr Deng. 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 Overall med compliance Osteo arthritis and DJD of spine: going to PT for back and hips. Is helping. Hopes to have hip resurfacing after has completed brillinta treatment for stent. Unable to take nsaid's due to CAD. Takes metaxolone at HS more than once a week for neck muscle spasms with good relief and no over sedation reported. Meralgia paresthetica on left side, not painful, just numb. Cheung's esophagitis/ bile reflux gastritis: well controlled with daily pantoprazole with famotidine as needed. Unable to go without famotidine for more than a few days in a row. Capillary leak syndrome from effects of past chemotherapy, resulting in chronic LE edema: taking lasix 40 mg most days. Takes micro k on days he takes lasix. Obesity/ prediabetes: is hoping to enter a study under his supervisor [employer] to get a GLP-1. Has been unsuccessful in weight loss. Declines metformin at this time. CAD with stent: denies any chest pain, decreased exercise tolerance, change in edema. Chronic SOB with bending over to tie shoes. Review of Systems Allergies[1] Social History Tobacco Use Smoking status: Never Passive exposure: Never Smokeless tobacco: Never Substance Use Topics Alcohol use: Yes Comment: occasion to Lori. Hobbies include hot air ballooning. Objective BP 115/73 Pulse 60 Temp 36.6 ?C (97.8 ?F) (Oral) Ht 5' 7 (1.702 m) Wt 243 lb 6.4 oz (110 kg) BMI 38.12 kg/m? Physical Exam Vitals and nursing note reviewed. Constitutional: Appearance: Normal appearance. He is obese. Cardiovascular: Rate and Rhythm: Normal rate and regular rhythm. Heart sounds: Normal heart sounds. No murmur heard. No gallop. Pulmonary: Effort: Pulmonary effort is normal. Breath sounds: Normal breath sounds. No wheezing, rhonchi or rales. Abdominal: Comments: protuberant Skin: General: Skin is warm and dry. Neurological: General: No focal deficit present. Mental Status: He is alert and oriented to person, place, and time. Cranial Nerves: No cranial nerve deficit. Psychiatric: Mood and Affect: Mood normal. Behavior: Behavior normal. Thought Content: Thought content normal. Judgment: Judgment normal. Data Reviewed and Summarized Labs: No visits with results within 1 Day(s) from this visit. Latest known visit with results is: Office Visit on 07/11/2024 Component Date Value Ref Range Status GLUCOSE 07/11/2024 115 (H) 65 - 99 mg/dL Final Comment: Fasting reference interval For someone without known diabetes, a gl (more content not included)... Normal [facility] Progress Noteon 08-28-2024 Progress Note [facility] [place] [address] [place] [address] Dept: [phone] Dept PHYSICAL THERAPY TREATMENT Patient Name: Ilir Macario : 1950 Date of Service: 08/28/2024 Referring Provider: Danial Dempsey MD Visit #: 5 Diagnosis: Lumbar back pain with radiculopathy affecting left lower extremity Mechanism of injury: insidious onset and worsening of low back pain Patient Preferences: Ilir Precautions/Red Flags: Yes HTN Subjective Pt reports that his pain has been tolerable recently, HEP has been going fine. Compliance with HEP: Yes Objective Objective measurements not taken today. Treatment Therapeutic Exercise # of Activities: 7 Therapeutic Exercise Activity 1: Bridges Activity 1 Comment: 3 x 10 Therapeutic Exercise Activity 2: TA marches Activity 2 Comment: 3 x 10 Therapeutic Exercise Activity 3: S/L clamshells Activity 3 Comment: 3 x 10 B, Blue TB Therapeutic Exercise Activity 4: PB rollouts Fwd/ lat B Activity 4 Comment: x 10 ea Therapeutic Exercise Activity 5: MARIELLE at counter Activity 5 Comment: x 15 Home Exercise Program: Progressed home exercise program Assessment Skilled physical therapy interventions utilized to improve patient?s impairments and work towards established goals. Patient response to treatment: Continued hip and core strengthening exercises on this date. Updated HEP with S/L clamichellels using blue TB and added live Grant'd good tolerance and understanding with performance. Ohlman like PB rollouts and MARIELLE were good stretches so added these to home program also. Pt reports feeling a bit loosened up post session, feels that he will notice a difference later on today. Patient will benefit from continued physical therapy to reduce symptoms and reach PT goals. The rationale for today?s treatment was explained to the patient. Verbal cues were provided for correct form with all exercises. Advised patient to continue with Home Exercise Program (HEP). Goals General/Ortho Patient will be able to walk 2 miles without pain to improve community ambulation. (Progressing) Start: 08/14/24 Expected End: 10/15/24 Patient will decrease Oswestry Disability Index from a 15 to a 5 to show a decrease in pain with ADLs. (Progressing) Start: 08/14/24 Expected End: 10/15/24 Patient will increase R hip flexion from a 72 and L hip flexion from a 100 to 120 for improve gait. (Progressing) Start: 08/14/24 Expected End: 10/15/24 Patient will increase hip strength to a 5/5 to improve ability to complete functional tasks. (Progressing) Start: 08/14/24 Expected End: 10/15/24 Plan Plan for next session: Progress hip and core stability and flexibility as tolerated Time Entry Total Treatment Time Start Time: 835 Stop Time: 858 Time Calculation (min): 23 min PT Therapeutic Procedures Time Entry Therapeutic Exercise Time Entry: 23 Almas Rascon [facility] CNOVon 08-26-2024 [facility] Office Visit (ORTHIN ) ABDIFATAH MACARIO ([id number]) 1950 M Date Time Provider Department 08/26/24 3:00 PM CARLOS HERNANDEZ During your visit today, we recorded the following information about you: Weight Height 106.6 kg 1.727 m Carlos Hernandez PA-C 08/26/2024 5:34 PM Signed CONSULT ORTHOPAEDIC: HIP PRIMARY CARE PHYSICIAN: Danial Dempsey MD REFERRING PROVIDER: Carlos Hernandez [address] [address] ASSESSMENT AND PLAN Impression: Bilateral Hip Severe Degenerative Osteoarthritis, Primary Diagnoses: (M16.11) Primary osteoarthritis of right hip (primary encounter diagnosis) (M16.12) Primary osteoarthritis of left hip - Discussed tx options for his bilateral hip OA including conservative tx, PT, CSI, and EDUARDO. 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 He is interested in learning more about hip resurfacing and if he would be a candidate. If not, he would prefer an anterior EDUARDO. - Provided contact information for by Dr. Hollis and Dr. Pratt and recommended making an appointment to discuss hip resurfacing further. - He is aware that he can reach out at anytime if he would like assistance with scheduling with a surgeon who does anterior THAs. - Continue rest, ice, OTC pain medication, and activity modification - Continue PT - Will continue to monitor patient for Primary osteoarthritis of right hip (primary encounter diagnosis) Primary osteoarthritis of left hip, patient to schedule visit as per follow up discussed. The patient has been ordered: Office Visit on 08/26/24 ticagrelor (BRILINTA) 90 mg tablet metoprolol succinate ER (TOPROL XL) 25 mg 24 hr tablet aspirin, enteric coated (ECOTRIN LOW STRENGTH) 81 mg EC tablet Risk Factors for Total Knee Arthroplasty (TKA) Major Risk Factors Obesity Moderate Risk High: BMI > 40 Moderate: BMI 30-40 Normal: BMI < 30 Diabetes normal High: A1C > 8 Moderate: A1C 7-8 Normal: A1C < 7 Hx of DVT / PE normal High: dx of DVT / PE Normal: no dx of DVT / PE Smoking normal High: Current smoker Normal: Non smoker Narcotics Use normal High:NarxCare >=300 Moderate: 100-299 Normal: 0-99 Depression Unknown Risk High: PHQ-9 >14 Moderate: PHQ-9 5-14 Normal: PHQ-9 < 5 Area Deprivation Index (CHRISTOS) normal High: CHRISTOS Score > 75 Moderate: CHRISTOS 50-75 Normal: CHRISTOS < 50 Obesity: weight management recommended BMI Readings from Last 3 Encounters: 08/26/24 : 35.73 kg/m? 05/13/21 : 35.28 kg/m? 12/27/20 : 34.97 kg/m? Area Deprivation Index (CHRISTOS) 08/26/2024 CHRISTOS Score National Score 40 Patient Health Questionnaire (PHQ-9) No data to display (0-4) minimal depression, (5-9) mild depression, (10-14) moderate depression, (15-19) moderately severe depression, (20-27) severe depression Bone Density Risk Screen Abdifatah Macario is at risk for bone loss and has not had a bone densitometry scan in the last 2 years (date of last scan: 07/20/2015). Recommend a bone densitometry scan and if indicated on the bone density results, a consult to a bone health specialist (Rheumatology, Endocrinology, or Women's Health) for bone assessment. Risk Factors: Use of Furosemide Use of Proton Pump Inhibitors Prednisone or use of systemic steroids Additional Risk Factors Anemia Hemoglobin (g/dL) Date Value 12/28/2020 10.7 12/20/2020 13.4 Past Orthopaedic Surgery: Abdifatah had knee surgery on 12/27/2020 with Celina Garcia. Malnutrition: No Malnutrition Screening Tool (MST) score on file- please complete the MST screening tool (click here to open) and refresh the note. 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 Breast Cancer in Male (Hcc) Essential Hypertension Hyperlipidemia Patent Foramen Ovale (Hcc) Class 2 Obesity Due to Excess Calories With Body Mass Index (Bmi) of 35.0 to 35.9 in Adult Status Post Total Right Knee Replacement Primary Osteoarthritis of Left Knee Heart Murmur Bph (Benign Prostatic Hyperplasia) Anemia Bilateral Leg Edema Prediabetes Status Post Total Knee Replacement, Left SUBJECTIVE CHIEF COMPLAINT: Hip Pain HPI: Abdifatah Macario is a 73 year old patient with the presenting complaint of Consult of the Right Hip (Right hip pain started 2 years ago - now pain is getting worse and radiates to buttocks and groin . Left hip pain started 2 to 4 months ago with radiation down lat. thigh. ). 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 The problem began limiting activities 1-3 years ago. FALL RISK: Abdifatah is not currently at risk for falls. PROMIS Physical Function Score No data to display FUNCTIONAL STATUS: Wa (more content not included)... Normal [facility] Progress Noteon 08-26-[address] [facility] AT [address] [place] [address] Dept: [phone] Dept PHYSICAL THERAPY TREATMENT Patient Name: Ilir Macario : 1950 Date of Service: 08/26/2024 Referring Provider: Danial Dempsey MD Visit #: 4 Diagnosis: Lumbar back pain with radiculopathy affecting left lower extremity Mechanism of injury: insidious onset and worsening of low back pain Patient Preferences: Ilir Precautions/Red Flags: Yes HTN Subjective Pt reports that his hip is tight, has been having some trouble getting into piriformis stretching position. Compliance with HEP: Yes Objective Objective measurements not taken today. Treatment Therapeutic Exercise # of Activities: 7 Therapeutic Exercise Activity 1: Fire hydrants/ donkey kicks Activity 1 Comment: 3 x 10 B, GTB Therapeutic Exercise Activity 2: Seated hip IR w/ ball squeeze Activity 2 Comment: 3 x 10, GTB Therapeutic Exercise Activity 3: S/L clamshells Activity 3 Comment: 3 x 10 B, GTB Therapeutic Exercise Activity 5: Figure 4 and piriformis stretching H/L Activity 5 Comment: x 30 B Home Exercise Program: Progressed home exercise program Assessment Skilled physical therapy interventions utilized to improve patient?s impairments and work towards established goals. Patient response to treatment: Continued focus on hip strengthening exercises on this date. Added in fire hydrants/ donkey kicks and s/l clamshells, good tolerance to each but stated these were challenging. Ended session with piriformis stretching, again stated this was really tight. Pt reports feeling some hip fatigue post session, no real increase in discomfort. Patient will benefit from continued physical therapy to reduce painful symptoms and benefit QOL. The rationale for today?s treatment was explained to the patient. Verbal cues were provided for correct form with all exercises. Advised patient to continue with Home Exercise Program (HEP). Goals General/Ortho Patient will be able to walk 2 miles without pain to improve community ambulation. (Progressing) Start: 08/14/24 Expected End: 10/15/24 Patient will decrease Oswestry Disability Index from a 15 to a 5 to show a decrease in pain with ADLs. (Progressing) Start: 08/14/24 Expected End: 09/03/25 Patient will increase R hip flexion from a 72 and L hip flexion from a 100 to 120 for improve gait. (Progressing) Start: 08/14/24 Expected End: 10/15/24 Patient will increase hip strength to a 5/5 to improve ability to complete functional tasks. (Progressing) Start: 08/14/24 Expected End: 10/15/24 Plan Plan for next session: Progress hip and core strength as able. Add core exs to HEP Time Entry Total Treatment Time Start Time: 847 Stop Time: 913 Time Calculation (min): 26 min PT Therapeutic Procedures Time Entry Therapeutic Exercise Time Entry: Almas Rascon PTA [facility] XR HIP STU 5V PEL+ AP/LAT EA HIPon 08-26-2024 XR HIP STU 5V PEL+ AP/LAT EA HIP * * *Final Report* * * DATE OF EXAM: Aug 26 2024 2:37PM CCX 5353 - XR HIP STU 5V PEL+ AP/LAT EA HIP / PROCEDURE REASON: Pain * * * * Physician Interpretation * * * * HISTORY: Pain . TECHNIQUE: XR HIP STU 5V PEL+ AP/LAT EA HIP Laterality: BILATERAL Number of different views (projections): 5 COMPARISON: None available. RESULT: There is no acute fracture or dislocation. Marked right and moderate to marked left hip osteoarthritis. Degenerative changes at the lower lumbar spine, bilateral sacroiliac joints and pubic symphysis. No other significant abnormality. - IMPRESSION: Bilateral hip osteoarthritis, more advanced on the right. 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 Transcribe Date/Time: Aug 27 2024 7:07A Dictated by : ALICIA GALE MD This examination was interpreted and the report reviewed and electronically signed by: ALICIA GALE MD on Aug 27 2024 7:08AM EST [id number] [facility] Progress Noteon 08-21-2024 Progress Note [facility] AT [place] [address] [place] [address] Dept: [phone] Dept PHYSICAL THERAPY TREATMENT Patient Name: Ilir Macario : 1950 Date of Service: 08/21/2024 Referring Provider: Danial Dempsey MD Visit #: 3 Diagnosis: Lumbar back pain with radiculopathy affecting left lower extremity Mechanism of injury: insidious onset and worsening of low back pain Patient Preferences: Ilir Precautions/Red Flags: Yes HTN Subjective Pt reports that his hip feels a little better since starting PT. Compliance with HEP: Yes Objective Objective measurements not taken today. Treatment Therapeutic Exercise # of Activities: 7 Therapeutic Exercise Activity 1: 3 way hip Activity 1 Comment: 3 x 10 OTB Therapeutic Exercise Activity 2: Seated hip IR w/ ball squeeze Activity 2 Comment: 2 x 10, OTB Therapeutic Exercise Activity 3: Reverse clamshells Activity 3 Comment: 2 x 10 B Therapeutic Exercise Activity 5: Figure 4 and piriformis stretching H/L Activity 5 Comment: x 30 B Home Exercise Program: Progressed home exercise program Assessment Skilled physical therapy interventions utilized to improve patient?s impairments and work towards established goals. Patient response to treatment: Continued with hip strengthening on this date. Added 3 way hips, hip IR exercises and piriformis stretches to HEP as pt demo's good tolerance and understanding. Ended session with piriformis stretching, reports feeling some increase in hip soreness that is tolerable post session. Patient will benefit from continued physical therapy to improve hip stability/ flexibility and reduce painful symptoms. The rationale for today?s treatment was explained to the patient. Verbal cues were provided for correct form with all exercises. Advised patient to continue with Home Exercise Program (HEP). Goals General/Ortho Patient will be able to walk 2 miles without pain to improve community ambulation. (Progressing) Start: 08/14/24 Expected End: 10/15/24 Patient will decrease Oswestry Disability Index from a 15 to a 5 to show a decrease in pain with ADLs. (Progressing) Start: 08/14/24 Expected End: 10/15/24 Patient will increase R hip flexion from a 72 and L hip flexion from a 100 to 120 for improve gait. (Progressing) Start: 08/14/24 Expected End: 10/15/24 Patient will increase hip strength to a 5/5 to improve ability to complete functional tasks. (Progressing) Start: 08/14/24 Expected End: 10/15/24 Plan Plan for next session: Progress hip and core stability as tolerated Time Entry Total Treatment Time Start Time: 832 Stop Time: 858 Time Calculation (min): 26 min PT Therapeutic Procedures Time Entry Therapeutic Exercise Time Entry: Almas Rsacon PTA Normal [facility] Progress Noteon 08-19-2024 Progress Note [facility] AT [place] [id number] [place] [address] Dept: [phone] Dept PHYSICAL THERAPY TREATMENT Patient Name: Ilir Macario : 1950 Date of Service: 08/19/2024 Referring Provider: Danial Dempsey MD Visit #: 2 Diagnosis: Lumbar back pain with radiculopathy affecting left lower extremity Mechanism of injury: insidious onset and worsening of low back pain Patient Preferences: Ilir Precautions/Red Flags: Yes HTN Subjective Ilir says he had a busy weekend and he didn't get much exercises in. Says he is still getting through. Compliance with HEP: not yet Objective Objective measurements not taken today. Treatment Therapeutic Exercise # of Activities: 7 Therapeutic Exercise Activity 1: Glute Bridge Activity 1 Comment: 3x10 Therapeutic Exercise Activity 2: hook lying abduction Activity 2 Comment: 3x10, orange band Therapeutic Exercise Activity 3: PPT Activity 3 Comment: 2 x10, 3 hold Therapeutic Exercise Activity 4: SLR Activity 4 Comment: 3x10 Therapeutic Exercise Activity 5: supine LTR Activity 5 Comment: x10 Therapeutic Exercise Activity 6: supine marching Activity 6 Comment: x20 B orange Therapeutic Exercise Activity 7: prone donkey kicks Activity 7 Comment: 2x10 B Home Exercise Program: start current Assessment Skilled physical therapy interventions utilized to improve patient?s impairments and work towards established goals. Gentle progressions of exercises and review of HEP today Patient response to treatment: able to complete all exercises, reported feeling a slight workout post session Patient will benefit from continued physical therapy to reduce pain, improve strength, increase range of motion, and progress to higher levels of functioning The rationale for today?s treatment was explained to the patient. Verbal cues were provided for correct form with all exercises. Advised patient to continue with Home Exercise Program (HEP). Goals General/Ortho Patient will be able to walk 2 miles without pain to improve community ambulation. (Progressing) Start: 08/14/24 Expected End: 10/15/24 Patient will decrease Oswestry Disability Index from a 15 to a 5 to show a decrease in pain with ADLs. (Not Addressed) Start: 08/14/24 Expected End: 10/15/24 Patient will increase R hip flexion from a 72 and L hip flexion from a 100 to 120 for improve gait. (Progressing) Start: 08/14/24 Expected End: 10/15/24 Patient will increase hip strength to a 5/5 to improve ability to complete functional tasks. (Progressing) Start: 08/14/24 Expected End: 10/15/24 Plan Plan for next session: core strength progressions, clamshells, sidestepping Time Entry Total Treatment Time Start Time: 1400 Stop Time: 1428 Time Calculation (min): 28 min PT Therapeutic Procedures Time Entry Therapeutic Exercise Time Entry: 28 Westnata Miller, PT Normal [facility] Progress Noteon 08-14-2024 Progress Note [facility] AT [address] [place] [address] Dept: [phone] Dept PHYSICAL THERAPY EVALUATION Patient Name: Ilir Macario : 1950 Date of Service: 08/14/2024 Referring Provider: Danial Dempsey MD Visit #: 1 Diagnosis: Lumbar back pain with radiculopathy affecting left lower extremity Primary osteoarthritis of right hip General Information Mechanism of injury: insidious onset and worsening of low back pain Patient Preferences: Ilir Precautions/Red Flags: Yes HTN Fall Risk: No 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 PSHX: Ilir has a past surgical history that includes Mastectomy (Right). Have you experienced any anxiety or depression?: No Have you experienced thoughts of self-harm or suicidal thoughts?: No Social Drivers of Health Reviewed: Yes Physician follow-up appointment?: Yes Subjective Chief Complaint: Ilir says that over time he has developed low back pain. Says it is not too bad early in the morning and as the day goes on it gets worse and worse. Says it has been going on for a while and doesn't really remember when it started. Says he deals with it when. Says the pain is mostly present across the back and goes down the left leg. Says when standing the pain will go down the leg. Having trouble with really any standing activities. Says sitting usually is comfortable and doesn't bother him. He says he can sleep just fine and laying down doesn't bother it too much. Describes the pain as a deep aching pain in the back, pain in the hip is anterior and sometimes runs down. X rays showed significant arthritis in his hip. Pain: Current: 0.5/10 Best: 0/10 Worst: 8-9/10 Symptoms Relieved by: resting Prior Level of Function: independent with some pain and difficulty Current Level of Function: independent with worsening pain and difficulty Patient?s Stated Goal: to be able to walk more, cover more distance Objective BACK Oswestry Disability Index (X/50): 15 Posture/Observation: rounded shoulders and forward head Gait: antalgic Date Recorded: 08/14/2024 Trunk AROM Percentage Comments Flexion (flex) 100 pain Extension (ext) 25 pain Right side bending (SBR) 50 pain Left side bending (SBL) 50 Right rotation (rotR) 100 Slight pain Left rotation (rotL) 100 Slight pain Myotomes/LE Strength Right X/5 Left X/5 Comments Hip Flexion (L2-L3) 4 4+ Hip Abduction 5 4+ Hip Extension 4- 4+ Hip IR 5 5 Hip ER 5 5 Knee Extension (L3-L4) 5 5 Knee Flexion (S2) 5 4+ Ankle DF (L5) 5 5 Ankle PF (S1) 5 5 Great Toe Ext (L5) 5 5 Palpation: muscles were tender but no reproduction of symptoms Flexibility: reduced hamstring flexibility (B) mild HIP Knee & Ankle AROM: WFL Date Recorded: 08/14/2024 Comments Lower Extremity ROM Right Left AROM AROM Hip Flexion 72 100 Pain on R Functional Squat: used UE on knee for support while ascending and descending Single Leg Stance (SLS) Balance R= 6 seconds, L= 25 seconds. 5 time Myy-bb-Difqk (seconds): 19.6 - Use of upper extremities?: Yes - Chair Height (standard chair 16-18 inches): 17 inches Assessment Ilir is a 73 y.o. patient with chief complaint of low back pain and hip pain, who presents with signs and symptoms consistent with referring diagnosis. He has decreased hip strength, decreased hip and back ROM, and pain with movements. These deficits prevent Ilir from completing functional tasks without pain. The patient would benefit from skilled physical therapy to address decreased strength, decreased range of motion, impaired balance, decreased mobility, and pain. Evaluation complexity is low secondary to: patient has 1-2 personal factors and/or comorbidities that will affect plan of care, therapy will be addressing 1-2 elements, and clinical presentation is stable. Body Systems Affected: musculoskeletal and neuromuscular Rehab Potential: Good Learning Preferences: demonstration, explanation, and printed materials Barriers to Rehab: none Goals General/Ortho Patient will be able to walk 2 miles without pain to improve community ambulation. (Initiated) Start: 08/14/24 Expected End: 10/15/24 Patient will decrease Oswestry Disability Index from a 15 to a 5 to show a decrease in pain with ADLs. (Initiated) Start: 08/14/24 Expected End: 10/15/24 Patient will increase R hip flexion from a 72 and L hip flexion from a 100 to 120 for improve gait. (Initiated) Start: 08/14/24 Expected End: 10/15/24 Patient will increase hip strength to a 5/5 to improve ability to complete functional tasks. (Initiated) Start: 08/14/24 Expected End: 10/15/24 Plan (more content not included)... Normal [facility] 36on 08-08-2024 36 We are unable to gabi ch your patient to schedule their therapy. We have made 3 attempts to schedule patient, 1st attempt: [employer] Message and/or an Email sent the date after Referral was received. 2nd attempt: Text message sent 3 days from date Referral was received. 3rd attempt: Telephone attempt 6 days from date Referral was received. Normal [facility] Microalb:Creat Ratio,Random URon 08-01-2024 MALB:CREAT 31.4 mg/g CRE [facility] Comment on above: Result Comment: AMENDED REPORT 08/01/24 9530 MALB:CREAT previously reported as: 314.2 mg/g CRE Performed By: #### L [id number], [id number] #### [facility] [address] [place], [place], [id number] XR Lumbar spine 2 or 3 Views on 07-14-2024 Impression: No acute osseous abnormality. Grade 1 anterior listhesis at L4/L5 with degenerative facet changes. Fairly advanced osteoarthritis of the hips. Report Dictated on Electronically Signed By: Swetha Avelar MD Electronically Signed Date/Time: 07/14/2024 6:55 AM [facility] 1950 [id number] Exam Date/Time: 07/11/2024 09:39 Procedure: XR LUMBAR SPINE 2-3 VIEWS Ordering Provider: DEMPSEY NANCY Reason For Exam: Low back pain, constant or radicular pain, no prior imaging (Ped 0-17y) Examination: Lumbar spine 3 views Indication: Low back pain, constant or radicular pain, no prior imaging (Ped 0-17y) Findings: The vertebral bodies are in gross anatomic alignment. No acute fracture is demonstrated. Moderate degenerative facet changes of the mid and lower lumbar spine. Grade 1 anterior listhesis at L4/L5. Mild to moderate disc space loss posteriorly at L2/L3 with small osteophytes. Mild to moderate calcification of the aorta. Severe joint space loss laterally within the right hip and moderate to severe joint space loss in the left hip [facility] Swetha Avelar MD - 07/14/2024 Patient Name: ABDIFATAH MACARIO : 1950 Exam Date/Time: 07/11/2024 09:39 Procedure: XR LUMBAR SPINE 2-3 VIEWS Ordering Provider: DEMPSEY NANCY Reason For Exam: Low back pain, constant or radicular pain, no prior imaging (Ped 0-17y) Examination: Lumbar spine 3 views Indication: Low back pain, constant or radicular pain, no prior imaging (Ped 0-17y) Findings: The vertebral bodies are in gross anatomic alignment. No acute fracture is demonstrated. Moderate degenerative facet changes of the mid and lower lumbar spine. Grade 1 anterior listhesis at L4/L5. Mild to moderate disc space loss posteriorly at L2/L3 with small osteophytes. Mild to moderate calcification of the aorta. Severe joint space loss laterally within the right hip and moderate to severe joint space loss in the left hip IMPRESSION: Impression: No acute osseous abnormality. Grade 1 anterior listhesis at L4/L5 with degenerative facet changes. Fairly advanced osteoarthritis of the hips. Report Dictated on Electronically Signed By: Swetha Avelar MD Electronically Signed Date/Time: 07/14/2024 6:55 AM EDT [facility] XR Lumbar spine 2 or 3 Views Ordered By: Swetha Avelar on 07-14-2024 [facility] Work Phone: Basic metabolic 1998 panelon 07-12-2024 Anion gap [Moles/Vol] 11 mmol/L [facility] Calcium [Mass/Vol] 8.7 mg/dL 8.6 - 10. 3 mg/dL [facility] Chloride [Moles/Vol] 101 mmol/L 98 - 11 0 mmol/L [facility] CO2 [Moles/Vol] 28 mmol/L 20 - 32 mmol/L [facility] Creatinine [Mass/Vol] 1.14 mg/dL 0.70 - 1.28 mg/dL [facility] GFR/1.73 sq M.predicted among non-blacks MDRD (S/P/Bld) [Vol rate/Area] 68 mL/min/{1.73_m2} > OR = 60 mL/min/1.73m 2 [facility] Glucose [Mass/Vol] 115 mg/dL High 65 - 99 mg/dL [facility] Comment on above: Fasting reference interval For someone without known diabetes, a glucose value between 100 and 125 mg/dL is consistent with prediabetes and should be confirmed with a follow-up test. Interpretation and review of laboratory results Abnormal [facility] Potassium [Moles/Vol] 3.9 mmol/L 3.5 - 5.3 mmol/L [facility] Sodium [Moles/Vol] 140 mmol/L 135 - 146 mmol/L [facility] Urea nitrogen [Mass/Vol] 14 mg/dL 7 - 25 mg/dL [facility] Urea nitrogen/Creatinine [Mass ratio] SEE NOTE: [facility] Comment on above: Not Reported: BUN an d Creatinine are within reference range. [facility] Office Visiton 07-11-2024 Follow-up visit [id number] Abdifatah Macario 1950 M Date Provider Department Center 07/11/2024 [id number] DEMPSEY [facility] FAMILY P None Family History Problem Relation Age of Onset Liver disease Mother Comments: BAILEY Breast cancer Sister 40 Kidney disease Other Comments: dye-induced renal failre Breast cancer Father's Brother Breast cancer Mother's Sister Family Status - Relation Status Age at Mother Sister Other Father's Brother Alive Mother's Sister Alive Level of Service:84589 [place] OFFICE/OUTPATIENT ESTABLISHED MOD MDM 30 MIN Reason for Visit and Comments: Follow-up [329976] - Imaging Normal [facility] Progress Noteon 07-11-2024 Progress Note Unclear if worse overall or just due to alteration of med routine or worsening kidney fct. Will get updated BMP. Normal [facility] Progress Note Recommend now done with rehab to get started with PT. Due to chronicity of back pain with now a sort of subacute exac, Hx of breast cancer, get imaging with X ray Also have PT address OA of right hip Normal [facility] Progress Note Recommend he check with cardio regarding LDL goal as may rec for below 50. Currenlty at usual goal of under 70 for pts with CAD. Continue statin. Normal [facility] Progress Note Normal f/up imaging. In remission Normal [facility] Progress Note Continue diet and exercise. Discussed possible trial of metformin as might help him to lose wt and is indicated for prediabetes/diabetes prevention. Does nto want to do at this time Normal [facility] Progress Note Stable. Protonix, pepcid Normal [facility] Progress Note Stable. Brilinta and asa as above. Anticipate lifelong single antiplatelet agent therapy after completion of brilinta course Normal [facility] Progress Note Stable . Meds as above Normal [facility] Progress Note Stable. 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 Mild diffuse LAD, distal disease. Mod luminal disease up to 50% prox circ. [place] [facility] 11/28/2023. See in media Current Assessment & Plan Stable. Continue brilinta for one year total, till November 2024 ASA, crestopr for secondary prevention Metoprolol [place] 3 fatty acids per pt choice Continue home changes as per cardiac rehab, just completed Essential hypertension Current Assessment & Plan Stable . Meds as above Relevant Orders Basic metabolic panel Endocrine/Metabolic Obesity, morbid (HCC) Current Assessment & Plan Continue diet and exercise. Discussed possible trial of metformin as might help him to lose wt and is indicated for prediabetes/diabetes prevention. Does nto want to do at this time Other History of breast cancer in male Overview Stage IIA Current Assessment & Plan Normal f/up imaging. In remission Lumbar back pain with radiculopathy affecting left lower extremity - Primary Current Assessment & Plan Recommend now done with rehab to get started with PT. Due to chronicity of back pain with now a sort of subacute exac, Hx of breast cancer, get imaging with X ray Also have PT address OA of right hip Relevant Orders XR lumbar spine 2 or 3 views Community [facility] Other Visit Diagnoses Primary osteoarthritis of right hip Relevant Orders [facility] Follow up in about 8 weeks (around 09/05/2024) for f/u back and hip pain, edema and renal fct. Subjective HPI had repeat mammography and no lesion identified, felt to be artifact. Due to br cancer hx has annual mammos. Possibility of a research study into wt loss drugs but would have to pay for own meds. Would get $500 stipend. Will probably not do. Recent increase in hip and low back pain. Some radiation of pain into posterolateral thigh, about 1/[address] down. Chronic back pain has been increasing over last year. Waiting for hip resurface vs replacement after completes yr of brillinta for coronary stent. No CP or sob except when bending over buelly, like when tying shoes gets a little SOB. No angina, no need for NTG. Tolerating all meds. Some recent increase in edema due to skipping some doses due to schedule so not working to get it resolved. Takes lasix about 3 x / week. Wears comp stockings regularly. Review of Systems Constitutional: Negative. Respiratory: Negative for cough and wheezing. Cardiovascular: Negative for palpitations. Endocrine: Negative. Allergies[1] Social History Tobacco Use Smoking status: Never Passive exposure: Never Smokeless tobacco: Never Substance Use Topics Alcohol use: Yes Comment: occasion Objective BP 99/58 (BP Location: Left arm, Patient Position: Sitting) Pulse 62 Temp 36.4 ?C (97.5 ?F) (Oral) Ht 5' 4 (1.626 m) Wt 244 lb (111 kg) BMI 41.88 kg/m? Physical Exam Vitals and nursing note reviewed. Constitutional: General: He is not in acute distress. Appearance: He is obese. Cardiovascular: Rate and Rhythm: Normal rate and regular rhythm. Heart sounds: Normal heart sounds. No murmur heard. No gallop. Pulmonary: Effort: Pulmonary effort is normal. Breath sounds: Normal breath sounds. No wheezing or rales. Abdominal: Comments: protuberant Musculoskeletal: Right lower leg: Edema present. Left lower leg: Edema present. Comments: 1+ edema mid shins with comp stockings on. Skin: General: Skin is warm and dry. Neurological: General: No focal deficit present. Mental Status: He is alert and oriented to person, place, and time. Cranial Nerves: No cranial nerve deficit. Gait: Gait abnormal. Comments: Antalgic gait Psychiatric: Mood and Affect: Mood normal. Thought Content: Thought content normal. Data Reviewed and Summarized Labs: Lab Results Component Value Date WBC 5.8 03/03/2023 HGB 14.0 03/03/2023 HCT 41.7 03/03/2023 PLT 276 03/03/2023 CHOL 174 12/28/2021 TRIG 195 (H) 12/28/2021 HDL 50 12/28/2021 ALT 12 03/03/2023 AST 14 03/03/2023 NA 139 08/23/2021 K 4.6 08/23/2021 CL 102 08/23/2021 CREATININE 0.95 03/03/2023 BUN 13 03/03/2023 CO2 28 03/03/2023 TSH 2.57 03/03/2023 PSA 0.672 08/23/2021 No visits with results within 1 Day(s) from this visit. Latest known visit with results is: Office Visit on 05/12/2024 Component Date Value Ref Range Status CHOLESTEROL, TOTAL 05/21/2024 142 <200 mg/dL Final HDL CHOLESTEROL 05/21/2024 49 > OR = 40 mg/dL (more content not included)... Normal [facility] Progress Note Pt asked if they hav e been to specialist,been in ER /hospitalized or had testing since last visit. Yes Imaging Patient was able to ambulate safely to the examination room. Provider was not notified of possible fall risk Normal [facility] XR Lumbar spine 2 or 3 Views on 07-11-2024 Radiology Study observation (narrative) [facility] DBT Breast - left diagnostic on 06-12-2024 No mammographic evidence of malignancy in the left breast. Markings on images: BB's = Nipples; skin lesions Open enterprise = Palpable Line = Scar ASSESSMENT: Category 1 Negative RECOMMENDATION: Return to normal screening Left CANCER RISK ASSESSMENT: No lifetime breast cancer risk score was calculated due to the patient having had a previous breast cancer diagnosis per Tyrer-Cuzick version 8 risk model guidelines. Is the patient at elevated risk based on the HBOC criteria? Yes (Hereditary Breast and Ovarian Cancer) - If Yes, consider genetic counseling and testing with high risk follow up Is the patient at elevated risk based on the Basurto Syndrome criteria? No - If Yes, consider genetic counseling and testing with high risk follow up. Report Dictated on Electronically Signed By: Melissa Albert MD Electronically Signed Date/Time: 06/12/2024 10:07 AM [facility] Patient Name: ABDIFATAH MACARIO : 1950 Exam Date/Time: 06/12/2024 10:04 Procedure: BI MAMMOGRAM DIAGNOSTIC TOMOSYNTHESIS LEFT Ordering Provider: DEMPSEY NANCY Reason For Exam: This exam was performed at [facility] at [facility] [address] [address] [facility] [address] PATIENT CANCER HISTORY: Self Breast Cancer age 58 FAMILY CANCER HISTORY: Sister Breast Cancer age 40 Paternal Uncle Breast Cancer Maternal Aunt Breast Cancer Prior study Comparisons: 2024; 2021 Image views: 2D CC and MLO views were acquired. 3D CC and MLO views were acquired. Tissue Density: BIRADS A - The breasts are almost entirely fatty. Images were reviewed with CAD. Findings: 73-year-old male with a history of malignant right mastectomy recalled from screening for left breast asymmetry. On today's additional views, the asymmetry previously seen below the nipple at posterior depth did not persist and was due to overlapping blood vessels and a skinfold. No suspicious masses, architectural distortions, or suspiciously clustered microcalcifications are seen in the left breast. [facility] Melissa Albert MD - 06/12/2024 [facility] Name[facility] 1950 [id number] Exam Date/Time: 06/12/2024 10:04 Procedure: BI MAMMOGRAM DIAGNOSTIC TOMOSYNTHESIS LEFT Ordering Provider: DEMPSEY NANCY Reason For Exam: This exam was performed at [facility] at [address] [facility] [address] PATIENT CANCER HISTORY: Self Breast Cancer age 58 FAMILY CANCER HISTORY: Sister Breast Cancer age 40 Paternal Uncle Breast Cancer Maternal Aunt Breast Cancer Prior study Comparisons: 2024; 2021 Image views: 2D CC and MLO views were acquired. 3D CC and MLO views were acquired. Tissue Density: BIRADS A - The breasts are almost entirely fatty. Images were reviewed with CAD. Findings: 73-year-old male with a history of malignant right mastectomy recalled from screening for left breast asymmetry. On today's additional views, the asymmetry previously seen below the nipple at posterior depth did not persist and was due to overlapping blood vessels and a skinfold. No suspicious masses, architectural distortions, or suspiciously clustered microcalcifications are seen in the left breast. IMPRESSION: No mammographic evidence of malignancy in the left breast. Markings on images: BB's = Nipples; skin lesions Open enterprise = Palpable Line = Scar ASSESSMENT: Category 1 Negative RECOMMENDATION: Return to normal screening Left CANCER RISK ASSESSMENT: No lifetime breast cancer risk score was calculated due to the patient having had a previous breast cancer diagnosis per Tyrer-Cuzick version 8 risk model guidelines. Is the patient at elevated risk based on the HBOC criteria? Yes (Hereditary Breast and Ovarian Cancer) - If Yes, consider genetic counseling and testing with high risk follow up Is the patient at elevated risk based on the Basurto Syndrome criteria? No - If Yes, consider genetic counseling and testing with high risk follow up. Report Dictated on Electronically Signed By: Melissa Albert MD Electronically Signed Date/Time: 06/12/2024 10:07 AM EDT [facility] Radiology Study observation (narrative) [facility] DBT Breast - left diagnostic Ordered By: Melissa Albert on 06-12-2024 Issue Work Phone: Albumin DL <= 20 mg/L (U) [M ass/Vol]Ordered By: Addy Pardo on 06-03-2024 Urine Random Microalbumin 48.7 mg/L NO RANGE EST. [facility] Cardiology Visit Reporton Cardiology Visit Report [facility] [address] [place], [place] [address] OFFICE VISIT Date of Service: 06/03/24 MR#: [id number] Acct: [id number] Name: ABDIFATAH MACARIO Rep #: [id number] : 1950 Provider: Dr. Addy Pardo MD Age/Sex: 73/M Location: [facility] Status: Signed HPI HPI History of Present Illness Details: ABDIFATAH MACARIO, is a 73 M who presents to the office today for a follow-up visit. He is a gentleman with a history of chronic Cheung's esophagitis, small patent foramen ovale, hypertension and hyperlipidemia who returns for routine follow-up visit. He does have a hx of right breast cancer with chemo and radiation in [id number]. After his last office visit he was concerned about family history of coronary artery disease. He did undergo a coronary calcium score. Coronary calcium score was significantly elevated at 2542. It was recommended that he undergo a diagnostic heart catheterization. Because he was not symptomatic this was denied by his insurance. He did undergo a stress test. Patient was able to walk 6 minutes for total of 7 METS. No ischemia was noted. Echocardiogram demonstrated an ejection fraction of 65%. RVSP of 37 mmHg. He did undergo a diagnostic heart catheterization November 28, 2023. This demonstrated EF of 65%, left main with mild calcification with mild luminal irregularities, LAD moderate calcification, mild diffuse disease noted in the proximal and mid anterior descending and mild disease present. Circumflex less than 30%, proximal circumflex moderate luminal irregularities up to 50%, ramus mild luminal irregularities, RCA dominant calcified vessel with left 80% proximal stenosis and moderate mid segment disease with mild distal disease. Patient underwent stenting to his proximal RCA. He has completed his cardiac rehabilitation. He unfortunately has gained some weight and is in the process of trying to lose some weight. He however denies any chest pain or shortness of breath or paroxysmal nocturnal dyspnea. He has had some hip problems and may be considering hip surgery later on. He also may need toe removed. Intake Vital Signs 04/13/23 08:33 05/15/24 07:29 06/03/24 09:34 Height 5 ft 8 in 5 ft 8 in 5 ft 8 in Weight: 243 lb BMI 36.9 BP 134/81 H Blood Pressure Location Lt brachial Position Sitting Respiration 16 Pulse 66 Pulse Source Monitor Intake Visit Reasons: 1 Y FU Steam Bone Press Tender Required: No Accompanied by: Self Is patient in pain?: No Allergies No Known Allergies Allergy (Verified 06/03/24 09:36) Medications ???Medication ???Instructions ???Recorded ???Confirmed ???Type pantoprazole 40 mg tablet,delayed 40 mg PO QDAY acid reflux 90 days 07/28/17 06/03/24 History release #90 tabs multivitamin 1 tab PO DAILY supplement 02/24/20 06/03/24 History omega-3 fatty acids 1,000 mg 1,000 mg PO DAILY supplement 02/2306/03/24 History capsule potassium chloride 10 mEq 10 meq PO DAILY supplement 1 06/03/24 History capsule,extended release tamsulosin 0.4 mg capsule 0.4 mg PO DAILY prostate 02/24/21 06/03/24 History cholecalciferol (vitamin D3) 125 125 mcg PO DAILY supplement 06/03/24 History mcg (5,000 unit) capsule mecobalamin (vitamin B12) 5,000 5,000 mcg PO DAILY supplement 03/0706/03/24 History mcg chewable tablet rosuvastatin 40 mg tablet mg PO 04/13/23 06/03/24 History aspirin 81 mg tablet,delayed 81 mg PO BREAKFAST #90 tabs 06/03/24 Rx release ticagrelor 90 mg tablet (Brilinta) 90 mg PO BID #180 tabs 12/18/23 06/03/24 Rx metoprolol tartrate 25 mg tablet 25 mg PO BID #180 tabs 12/25/23 Rx furosemide 20 mg tablet 20 mg PO BID PRN water pill 06/03/24 History Have you fallen in the past year?: No PFSH Medical History Elevated coronary artery calcium score Abnormal screening CT of chest Bile reflux gastritis Preop cardiovascular exam Obesity Cheung esophagus Essential (primary) hypertension Patent foramen ovale Breast cancer in male Hyperlipidemia Surgical History History of coronary artery stent placement (11/28/23) History of total bilateral knee replacement (TKR) H/O right mastectomy Family History Other Breast cancer CAD (coronary artery disease) Social History Smoking Status: Never smoker ROS Const Const: Negative for fatigue, weakness, headache(s), daytime sleepiness or difficulty sleeping ENT ENT: Negative for headache(s), dizziness or Nosebleed/epistaxis Cardio Chest Pain: No Palpitations: No Edema: Bilateral ( (more content not included)... Normal [facility] Creatinine Unsp time (U) [Ma ss/Vol]Ordered By: Addy Pardo on 06-03-2024 Creatinine (U) [Mass/Vol] 155.00 mg/dL 39.00-259.00 [facility] Hemoglobin A1con 06-03-2024 HbA1c (Bld) [Mass fraction] 6.6 % High <=5.6 [facility] Comment on above: Result Comment: Norm al < 5.7 % Prediabetic 5.7 - 6.4 % Diabetic >or= 6.5 % Please note range changes. Performed By: #### L [phone], [id number] #### [facility] [address] [place], [place], [id number] Hemoglobin A1c percentageOrd ered By: Addy Pardo on 06-03-2024 HbA1c (Bld) [Mass fraction] 6.6 % High <5.7 [facility] Comment on above: Normal < 5.7 % Predi abetic 5.7 - 6.4 % Diabetic >or= 6.5 % Please note range changes. Microalbumin/creat ratio urO rdered By: Addy Pardo on 06-03-2024 Urine Microalbumin/Creatini ne Ratio 314.2 mg/g CRE [facility] Random urine creatinine clark urement (mass/volume)Ordered By: Addy Pardo on 06-03-2024 Creatinine Unsp time (U) [Mass/Vol] 155.00 mg/dL 39.00-259.00 [facility] Urine albumin measurement [facility] detection limit of 20 mg/L or less (mass/volume)Ordered By: Addy Pardo on 06-03-2024 Albumin DL <= 20 mg/L (U) [Mass/Vol] 48.7 mg/L NO RANGE EST. [facility] Office Visiton 05-12-2024 Follow-up visit [id number] Abdifatah Macario 1950 M Date Provider Department Center 05/12/2024 [id number] DEMPSEY [facility] FAMILY P None Family History Problem Relation Age of Onset Liver disease Mother Comments: BAILEY Breast cancer Sister 40 Kidney disease Other Comments: dye-induced renal failre Breast cancer Father's Brother Breast cancer Mother's Sister Family Status - Relation Status Age at Mother Sister Other Father's Brother Alive Mother's Sister Alive Level of Service:40865 [place] OFFICE/OUTPATIENT ESTABLISHED MOD MDM 30 MIN Reason for Visit and Comments: Follow-up [155963] - Weight loss Normal [facility] Progress Noteon 05-12-2024 Progress Note Exacerbated by recen t events. Lasix/K+ to resolution Normal [facility] Progress Note See below. Weight is not improving Normal [facility] Progress Note Stabe, continue cardiac nunez as above Normal [facility] Progress Note Stable. Encouraged h im to discuss dyspnea with cardio. Continue asa, metoprolol tartrate, brilinta Normal [facility] Progress Note Patient was able to ambulate safely to the examination room. Provider was not notified of possible fall risk Pt asked if they have been to specialist,been in ER /hospitalized or had testing since last visit. 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 Mild diffuse LAD, distal disease. Mod luminal disease up to 50% prox circ. [place] [facility] 11/28/2023. See in media Essential hypertension Endocrine/Metabolic Obesity, morbid (HCC) Prediabetes - Primary Other Hyperlipidemia Overview Last Assessment & Plan: Assessment: Compliant with Rx. Following with cardiology/PCP. No follow-ups on file. 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 cat bite in finger, own cat. On augmentin. Spoke with a hand surgeon he knows who is taking care of it. Much improved, keeping covered. Finger still swollen, not red, pain present but decreasing.Feels cat was startled out of sleep. On augmentin 875/125 for 5 more days. No real progress with weight. Semaglutide denied as not diabetic. Plans to talk with cardio about it to see if they have any way to get in view of new dx of CAD. Increased LE edema due to travel and sitting in meetings. Will take lasix for a few days to get swelling and weight down. Dyspnea with exertion much improved since stent Some dyspnea with bending over, like tying shoes, with compression of abdomen. No orthopnea or PND. Denies Chest pain. Sees cardio end of May. Has appt for diagnostic imaging for f/up of mammogram. No palpable abnormality. Review of Systems No Known Allergies Social History Tobacco Use Smoking status: Never Passive exposure: Never Smokeless tobacco: Never Substance Use Topics Alcohol use: Yes Comment: occasion Objective BP 130/84 (BP Location: Left arm, Patient Position: Sitting) Pulse 67 Temp 36.4 ?C (97.5 ?F) (Oral) Ht 5' 4 (1.626 m) Wt 241 lb (109 kg) BMI 41.37 kg/m? Physical Exam Vitals and nursing note reviewed. Constitutional: Appearance: Normal appearance. He is obese. HENT: Head: Normocephalic and atraumatic. Cardiovascular: Rate and Rhythm: Normal rate and regular rhythm. Heart sounds: Normal heart sounds. No murmur heard. No gallop. Pulmonary: Effort: Pulmonary effort is normal. Breath sounds: Normal breath sounds. No wheezing or rales. Abdominal: Comments: obese Musculoskeletal: Right lower leg: Edema present. Left lower leg: Edema present. Comments: 2+ edema bilaterally Right index finger swollen, decreased flexion at dip joint due to same. + skin disruption dorsum of distal phalanx and radial side. Longitudinal wound on dorsum, puncture wnds on radial side. Dry. No purulence. Cap refill under 2 sec. Diffuse TTP distal phalanx Skin: General: Skin is warm and dry. Capillary Refill: Capillary refill takes less than 2 seconds. Neurological: General: No focal deficit present. Mental Status: He is alert and oriented to person, place, and time. Cranial Nerves: No cranial nerve deficit. Gait: Gait normal. Psychiatric: Mood and Affect: Mood normal. Behavior: Behavior normal. Thought Content: Thought content normal. Judgment: Judgment normal. Data Reviewed and Summarized Labs: Lab Results Component Value Date WBC 5.8 03/03/2023 HGB 14.0 03/03/2023 HCT 41.7 03/03/2023 PLT 276 03/03/2023 CHOL 174 12/28/2021 TRIG 195 (H) 12/28/2021 HDL 50 12/28/2021 ALT 12 03/03/2023 AST 14 03/03/2023 NA 139 08/23/2021 K 4.6 08/23/2021 CL 102 08/23/2021 CREATININE 0.95 03/03/2023 BUN 13 03/03/2023 CO2 28 03/03/2023 TSH 2.57 03/03/2023 PSA 0.672 08/23/2021 No visits with results within 1 Day(s) from this visit. Latest known visit with results is: Office Visit on 03/07/2024 Component Date Value Ref Range Status Hemoglobin A1C 03/07/2024 6.4 (A) <=5.7 % Final Imaging/Testing: Danial Dempsey MD [facility] 36on 04-21-2024 36 We have been unable to reach your patient to schedule their testing. Test Name: physical therapy 1st Attempt: rosalind 01-25-24 2nd Attempt: dav pt/ stated he would like to hold off on scheduling- provided scheduling phone #/ 04-21-24 [facility] No Panel InformationOrdered By: Addy Pardo on 04-21-2024 [facility] [address] [place] [address] CR - Individual Treatment Plan MR#: [id number] Acct: [id number] Name: ABDIFATAH MACARIO Rep #:[id number] : 1950 73 From: Addy Pardo MD PCP: Dr. Danial Dempsey MD DOS: 04/14/24 Exercise - Initial Assessment Physician Prescribed Exercise Modalities: Treadmill, Schwinn Airdyne AD-7 and SciFit Stepper Nutrition - Initial Assessment Program Goals Nutrition Program Goals Patient has diagnosis of Hyperlipidemia (ICD E78)?: Yes Weight Mgt (Other Care) Height: 5 ft 8 in Weight:: 237 lb 8 oz BMI: 36.1 Core - Initial Assessment Hypertension Resting Blood Pressure:: 120/80 [place] [employer] Hypertension Guidelines Psychosocial - Initial Assess Target Goals Target Goals Psychosocial Test phq-9 Severity See PHQ-9 Score: 7 Referral to Behavioral Health PS - Interventions: Yes: Attend Stress Management Classes Patient Health Questionnaire PHQ-9 Screening Discharge Assessment: 1. Little interest or pleasure in doing things: Several days 2. Feeling down, depressed, or hopeless: Not at all 3. Trouble falling or staying asleep, or sleeping too much: More than halfthe days 4. Feeling tired or having little energy: More than half the days 5. Poor appetite or overeating: Several days 6. Feeling bad about yourself -- or that you are a failure or have let yourself or your family down: Not at all 7. Trouble concentrating on things, such as reading the newspaper or watching television: Several days 8. Moving or speaking so slowly that other people could have noticed. Or the opposite - being so fidgety or restless that you have been moving around a lot more than usual: Not at all 9. Thoughts that you would be better off , or of hurting yourself in some way: Not at all Total Score: 7 Self-Efficacy 6-Item Scale Discharge Assessment: We would like to know how confident you are in doing certain activities. Please select your confidence level for: Fatigue Select Number: 8 Physical Discomfort or Pain Select Number: 8 Emotional Distress Select Number: 10 Other Symptoms or Health Problems Select Number: 10 Different Tasks and Activities Select Number: 9 Medication Select Number: 10 Total Score:: 9 Nutrition Survey Nutrition Survey Instructions Scoring Instructions Exercise - 30-day Assessment Physician Prescribed Exercise Modalities: Treadmill, Schwinn Airdyne AD-7 and SciFit Stepper Exercise - 60-day Assessment Physician Prescribed Exercise Modalities: Treadmill, Schwinn Airdyne AD-7 and SciFit Stepper Exercise - 90-day Assessment Physician Prescribed Exercise Modalities: Treadmill, Schwinn Airdyne AD-7 and SciFit Stepper Exercise - Final/Discharge Visit Date of Eval: 04/18/24 Session #:: 25 (still has 10 sessions left to complete) Physician Prescribed Exercise Modalities: Treadmill, Schwinn Airdyne AD-7 and SciFit Stepper Frequency: 3x/week for 12 weeks [36 sessions] Intensity: 60-80% of age predicted maximum heart rate reserve Duration: 30 - 45 minutes METs - Progression 0.5-1.0 weekly:: 0.5 Current METSs:: 4.8 Target Heart Rate:: 96-118 Target RPE 12-16:: 14 Maximum Heart Rate:: 109 Resting Blood Pressure: 120/80 Maximum Exercise Blood Pressure: 138/64 EKG Type: 1DAVB with rare PAC, PVC. Current Physical Activity or Exercising minutes: 30 MINS Outcomes & Goals Goals:: Verbalizes understanding of THR, RPE & goal METS by session 6, Documentsin home exercise log/reports 30 min aerobic 5 day/wk by DC and Demonstrates accurate pulse taking by DC Intervention & Plan Exercise Program Goals: Instruct on personal THR & RPE, Instruct on MET level & personal MET goal, Show patient to take own pulse /validate performance until accurate and Instruct on home exercise 30-day Reassessments 30 day Reassessments:: Met Reassessment Notes & Comments:: demonstrates understanding of Target HR and use of RPE scale. Physical Activity Home Exercise Physical Activity - Home Exercise: Safe Exercise, Warm-up, Self-monitoring, Cool-Down, Home Exercise > 30 min Daily and Sitting Time <3 hours/daily Outcomes & Goals Outcomes/Goals: Demonstrates correct Warm-up/exercise Cool-Down (S3) if = 2.5 METs, Verbalizes symptoms of exercise intolerance by Session 3 (S3) and Demonstrate safe equipment use (S3) & follows exercise prescrition (6) Intervention & Plan Plan/Intervention: Instruct warm-up & cool-down if exercising at > 2 METs, Instruct on symptoms of exercise intolerance & actions to take, Instruct & monitor on saf and Assess intial functional capacity & safety risk 30-day Reassessments 30 day Reassessments:: Met Reassessment Notes & Comments:: has continued to increase exercise workloads according to RPE rating. demonstrates understanding of warm up and cool down with exercise. Nutrition - 30-Day Assessment Weight Mgt (Other Care) Height: 5 ft 8 in Weight:: 237 lb 8 oz BMI: 36.1 Nutrition - 60-Day Assessment Weight Mgt (Other Care) Height: 5 ft 8 in Weight:: 237 lb 8 oz BMI: 36.1 Core - 30-Day Ass (more content not included)... [facility] Work Phone: DBT Breast - left screeningO rdered By: Candi Langston on 04-15-2024 Interpretation and review of laboratory results Abnormal [facility] [employer] Work Phone: [employer] Phone: DBT Breast - left screeningo n 04-15-2024 The left inferior breast MLO view only asymmetry is indeterminate. A diagnostic left mammogram and left breast ultrasound if necessary are recommended. ASSESSMENT: Category 0 Incomplete: need additional imaging evaluation RECOMMENDATION: Follow-up diagnostic mammogram Left And left breast ultrasound if necessary. CANCER RISK ASSESSMENT: No lifetime breast cancer risk score was calculated due to the patient having had a previous breast cancer diagnosis per Tyrer-Cuzick version 8 risk model guidelines. Is the patient at elevated risk based on the HBOC criteria? Yes (Hereditary Breast and Ovarian Cancer) - If Yes, consider genetic counseling and testing with high risk follow up Is the patient at elevated risk based on the Basurto Syndrome criteria? No - If Yes, consider genetic counseling and testing with high risk follow up. Report Dictated on Electronically Signed By: Candi Langston DO Electronically Signed Date/Time: 04/15/2024 10:54 AM [facility] 1950 [id number] Exam Date/Time: 04/15/2024 09:04 Procedure: BI MAMMOGRAM SCREENING TOMOSYNTHESIS LEFT Ordering Provider: DEMPSEY NANCY Reason For Exam: This exam was performed at [address] [address] PATIENT CANCER HISTORY: Self Breast Cancer age 58 FAMILY CANCER HISTORY: Sister Breast Cancer age 40 Paternal Uncle Breast Cancer Maternal Aunt Breast Cancer TECHNIQUE: 2D CC and MLO views of the left breast 3D CC and MLO views of the left breast Images reviewed with CAD Markings on images: BB's = Nipples, skin lesions Open enterprise = Palpable Line = Scar COMPARISON: 03/26/2023, 12/08/2021, 12/07/2020, 11/03/2019, 10/28/2018, 09/18/2017, 12/15/2009 TISSUE DENSITY: BIRADS B - There are scattered areas of fibroglandular density. FINDINGS: There is a left inferior breast MLO view only asymmetry at posterior depth. No other suspicious masses, architectural distortions or suspiciously clustered microcalcifications. No skin thickening or nipple retraction. [facility] LangstonCandi snyder DO - 04/15/2024 Patient Name: ABDIFATAH [facility] 1950 [id number] Exam Date/Time: 04/15/2024 09:04 Procedure: BI MAMMOGRAM SCREENING TOMOSYNTHESIS LEFT Ordering Provider: DEMPSEY NANCY Reason For Exam: This exam was performed at [address] [facility] [address] PATIENT CANCER HISTORY: Self Breast Cancer age 58 FAMILY CANCER HISTORY: Sister Breast Cancer age 40 Paternal Uncle Breast Cancer Maternal Aunt Breast Cancer TECHNIQUE: 2D CC and MLO views of the left breast 3D CC and MLO views of the left breast Images reviewed with CAD Markings on images: BB's = Nipples, skin lesions Open enterprise = Palpable Line = Scar COMPARISON: 03/26/2023, 12/08/2021, 12/07/2020, 11/03/2019, 10/28/2018, 09/18/2017, 12/15/2009 TISSUE DENSITY: BIRADS B - There are scattered areas of fibroglandular density. FINDINGS: There is a left inferior breast MLO view only asymmetry at posterior depth. No other suspicious masses, architectural distortions or suspiciously clustered microcalcifications. No skin thickening or nipple retraction. IMPRESSION: The left inferior breast MLO view only asymmetry is indeterminate. A diagnostic left mammogram and left breast ultrasound if necessary are recommended. ASSESSMENT: Category 0 Incomplete: need additional imaging evaluation RECOMMENDATION: Follow-up diagnostic mammogram Left And left breast ultrasound if necessary. CANCER RISK ASSESSMENT: No lifetime breast cancer risk score was calculated due to the patient having had a previous breast cancer diagnosis per Tyrer-Cuzick version 8 risk model guidelines. Is the patient at elevated risk based on the HBOC criteria? Yes (Hereditary Breast and Ovarian Cancer) - If Yes, consider genetic counseling and testing with high risk follow up Is the patient at elevated risk based on the Basurto Syndrome criteria? No - If Yes, consider genetic counseling and testing with high risk follow up. Report Dictated on Electronically Signed By: Candi Langston DO Electronically Signed Date/Time: 04/15/2024 10:54 AM EST [facility] Radiology Study observation (narrative) [facility] 36on 04-10-2024 36 Last office visit:03/07/24 Next office visit:05/12/24 Normal [facility] Cardiology Visit Reporton Cardiology Visit Report [facility] [address] [place] [address] OFFICE VISIT Date of Service: 04/08/24 MR#: [id number] Acct: [id number] Name: ABDIFATAH MACARIO Rep #: [id number] : 1950 Provider: PRADIP Bean Age/Sex: 73/M Location: [facility] Status: Signed HPI HPI History of Present Illness Details: ABDIFATAH MACARIO, is a 73 M who presents to the office today for a follow-up visit. He is a gentleman with a history of chronic Cheung's esophagitis, small patent foramen ovale, hypertension and hyperlipidemia who returns for routine follow-up visit. He does have a hx of right breast cancer with chemo and radiation in [id number]. After his last office visit he was concerned about family history of coronary artery disease. He did undergo a coronary calcium score. Coronary calcium score was significantly elevated at 2542. It was recommended that he undergo a diagnostic heart catheterization. Because he was not symptomatic this was denied by his insurance. He did undergo a stress test. Patient was able to walk 6 minutes for total of 7 METS. No ischemia was noted. Echocardiogram demonstrated an ejection fraction of 65%. RVSP of 37 mmHg. He did undergo a diagnostic heart catheterization November 28, 2023. This demonstrated EF of 65%, left main with mild calcification with mild luminal irregularities, LAD moderate calcification, mild diffuse disease noted in the proximal and mid anterior descending and mild disease present. Circumflex less than 30%, proximal circumflex moderate luminal irregularities up to 50%, ramus mild luminal irregularities, RCA dominant calcified vessel with left 80% proximal stenosis and moderate mid segment disease with mild distal disease. Patient underwent stenting to his proximal RCA. Intake Vital Signs 12/25/23 09:22 04/08/24 07:42 Height 5 ft 8.11 in 5 ft 8.1 in Weight: 235 lb BMI 35.6 BP 104/68 Blood Pressure Location Lt brachial Position Sitting Respiration 18 Pulse 66 Pulse Source Monitor Pulse Oximetry (%) 99 Intake Visit Reasons: 3 M FU Steam Bone Press Tender Required: No Is patient in pain?: No Allergies No Known Allergies Allergy (Verified 04/08/24 09:10) Medications ???Medication ???Instructions ???Recorded ???Confirmed ???Type pantoprazole 40 mg tablet,delayed 40 mg PO QDAY acid reflux 90 days 07/28/17 04/08/24 History release #90 tabs multivitamin 1 tab PO DAILY supplement 02/24/20 04/08/24 History omega-3 fatty acids 1,000 mg 1,000 mg PO DAILY supplement 02/2304/08/24 History capsule potassium chloride 10 mEq 10 meq PO DAILY supplement 1 04/08/24 History capsule,extended release tamsulosin 0.4 mg capsule 0.4 mg PO DAILY prostate 02/24/21 04/08/24 History cholecalciferol (vitamin D3) 125 125 mcg PO DAILY supplement 04/08/24 History mcg (5,000 unit) capsule furosemide 20 mg tablet 20 mg PO BID water pill 04/13/23 0 04/08/24 History mecobalamin (vitamin B12) 5,000 5,000 mcg PO DAILY supplement 03/0704/08/24 History mcg chewable tablet rosuvastatin 40 mg tablet mg PO 04/13/23 04/08/24 History aspirin 81 mg tablet,delayed 81 mg PO BREAKFAST #90 tabs 04/08/24 Rx release ticagrelor 90 mg tablet (Brilinta) 90 mg PO BID #180 tabs 12/18/23 04/08/24 Rx metoprolol tartrate 25 mg tablet 25 mg PO BID #180 tabs 12/25/23 Rx Ejection fraction %: 65 Have you fallen in the past year?: No PFSH Medical History Elevated coronary artery calcium score Abnormal screening CT of chest Bile reflux gastritis Preop cardiovascular exam Obesity Cheung esophagus Essential (primary) hypertension Patent foramen ovale Breast cancer in male Hyperlipidemia Surgical History History of coronary artery stent placement (11/28/23) History of total bilateral knee replacement (TKR) H/O right mastectomy Family History Other Breast cancer CAD (coronary artery disease) Social History Smoking Status: Never smoker ROS Const Const: Negative for fatigue, weakness, body ache, fever(s), headache(s), chills, frequent falls, night sweats, daytime sleepiness, difficulty sleeping, excessive sweating, weight gain, weight loss, increased appetite, poor appetite, anorexia or other Eyes Eyes: Negative for blurry vision or double vision ENT ENT: Negative for headache(s) or dizziness Cardio Chest Pain: No Edema: Bilateral Resp Respiratory: Negative for SOB with activity, SOB at rest, SOB orthopnea SOB lying down, Cough, Coughing up blo (more content not included)... [facility] 36on 04-07-2024 36 Last office visit: 03/07/24 Next office visit: 05/12/24 [facility] 36on 03-26-2024 36 Patient is requiring a PA on his metaxalone., I have sent you the PA to complete or can change the medication. Thank you.. [facility] Progress Noteon 03-14-2024 Progress Note Spent an hour on the phone with [facility]. Appeal denied due to pt no meeting criteria for diabetes. Diagnosis required medication Case #[id number] [facility] 36on 03-13-2024 36 Prior Auth received for Ozempic would you like to initiate Tessie Renae LPN, on 03/13/24 at 1:26 PM. [facility] Progress Noteon 03-08-2024 Progress Note After visit chart review rosalba mgaaña last in mar 07. Unable to find any from [facility] where stent placed. Repeeat at next ov [facility] Progress Note Stable. Controlled with intermittent lasix [facility] Progress Note resolved Normal [facility] HbA1c (Bld) [Mass fraction]o n 03-07-2024 Interpretation and review of laboratory results Abnormal [facility] - Hematology and Cell countson 03-07-2024 HbA1c (Bld) [Mass fraction] 6.4 % Abnormal - 5.7 % [facility] Office Visiton 03-07-2024 Follow-up visit [id number] Abdifatah Macario 1950 M Date Provider Department Center 03/07/2024 [id number] DEMPSEY [facility] FAMILY P None Family History Problem Relation Age of Onset Liver disease Mother Comments: BAILEY Breast cancer Sister 40 Kidney disease Other Comments: dye-induced renal failre Family Status - Relation Status Age at Mother Sister Other Level of Service:[address] [place] OFFICE/OUTPATIENT ESTABLISHED MOD MDM 30 MIN Reason for Visit and Comments: Follow-up [049098] - HTN and results to Ultrasound Normal [facility] Progress Noteon 03-07-2024 Progress Note Pt asked if they hav e been to specialist,been in ER /hospitalized or had testing since last visit. No Patient was able to ambulate safely to the examination room. 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 Mild diffuse LAD, distal disease. Mod luminal disease up to 50% prox circ. [facility] 11/28/2023. See in media Relevant Medications Semaglutide, 2 MG/DOSE, 8 MG/3ML solution pen-injector Endocrine/Metabolic Obesity, morbid (HCC) Relevant Medications Semaglutide, 2 MG/DOSE, 8 MG/3ML solution pen-injector Prediabetes - Primary Relevant Medications Semaglutide, 2 MG/DOSE, 8 MG/3ML solution pen-injector Other Relevant Orders AMB POC HEMOGLOBIN A1C (Completed) Hematologic RESOLVED: Macrocytic anemia Overview No b 12 or folate def. Likely related to fci effectas of chemo. Current Assessment & Plan resolved Other Visit Diagnoses CVD (cardiovascular disease) Relevant Medications Semaglutide, 2 MG/DOSE, 8 MG/3ML solution pen-injector Other Relevant Orders AMB POC HEMOGLOBIN A1C (Completed) Muscle spasms of neck Relevant Medications metaxalone (Skelaxin) 800 MG tablet Given obestiy, prediab, recent cardiac stent and unsuccessful attempts at weight loss over at least the last 2 yrs, feel will benefit from semaglutide to decrease progression to diabetes and improve CV outcomes in pt with BMI of 36. Pt without falls or excessive sedation from metaxolone with increased fctal ability for daily activities. Follow up in about 6 weeks (around 04/18/2024) for weight and blood sugar. Subjective HPI CVD/HTN/hyperlipidemei a: no cp. Exertional dyspnea is less since surgery and with cardiac rehab. No orhtopnea or PND reported. Edema is unchanged. Continue brillinta till December for stent . Tolerating crestor. Capillary leak syndrome: peripheral edema related to tamoxifen therapy. Controlled with lasix 2-3 times a week. Take potassium only on days he take lasix. Epidiymitis: sx's resolved with ATB's. Also had some ATB's for dental inf. Hydroceles: over time has had mild intermittent scrotal swelling, not painful. Wears scrotal support/briefs. No hx of hernia Obesity: increased activity with cardiac rehab. Many dietary changes. Struggling with weight loss and interested in a GLP-1 for weight and CV risk reduction, prevention of DM. Bile reflux gastritis/ Barretts: does immediately miss protonix if does not take. Never misses pepcid so unable to say. Prediabetes: quit pop some time ago. Occasional cookie. Review of Systems No Known Allergies Social History Tobacco Use Smoking status: Never Passive exposure: Never Smokeless tobacco: Never Substance Use Topics Alcohol use: Yes Comment: occasion Objective BP 127/78 Pulse 61 Temp 36 ?C (96.8 ?F) (Temporal) Ht 5' 8 (1.727 m) Wt 243 lb (110 kg) BMI 36.95 kg/m? Physical Exam Constitutional: Appearance: Normal appearance. He is obese. Cardiovascular: Rate and Rhythm: Normal rate and regular rhythm. Pulses: Normal pulses. Heart sounds: Normal heart sounds. No murmur heard. No gallop. Pulmonary: Effort: Pulmonary effort is normal. Breath sounds: Normal breath sounds. No wheezing, rhonchi or rales. Skin: General: Skin is warm and dry. Neurological: General: No focal deficit present. Mental Status: He is alert and oriented to person, place, and time. Cranial Nerves: No cranial nerve deficit. Psychiatric: Mood and Affect: Mood normal. Thought Content: Thought content normal. Judgment: Judgment normal. Data Reviewed and Summarized Labs: Office Visit on 03/07/2024 Component Date Value Ref Range Status Hemoglobin A1C 03/07/2024 6.4 (A) <=5.7 % Final 11/09/23: lab from nephro visit EGFR 82. RBC indices normal Imaging/Testing: Danial Dempsey MD Normal [facility] US SCROTUMon 03-04-2024 US SCROTUM Patient Name: ABDIFATAH MACARIO : 1950 Exam Date/Time: 03/04/2024 08:15 Procedure: US SCROTUM Ordering Provider: DEMPSEY NANCY Reason For Exam: TESTICULAR SWELLING CLINICAL INFORMATION: Right testicular pain. Ultrasound scrotum with spectral color Doppler: The testicles are within normal limits in size and echogenicity without evidence of mass. The right testicle measures 4.4 x 2.5 x 2.5 cm and the left 5 x 3.1 x 3.1 cm. Normal spectral color blood flow is demonstrated to both testes. There is a 3 mm cyst in the left testicle. There is a debris-containing bilateral hydroceles. There is no significant abnormality of the epididymis on either side. There is a 7 x 6 x 6 mm cyst in the right epididymis IMPRESSION: 1. No significant sonographic abnormality of either testicle. 2. Bilateral debris-containing hydroceles. 3. No significant sonographic abnormality of either epididymis. Report Dictated on Electronically Signed By: Miquel Ramsey MD Electronically Signed Date/Time: 03/04/2024 3:18 PM EST Normal [facility] US.doppler Scrotum and testi steff 03-04-2024 1. No significant sonographic abnormality of either testicle. 2. Bilateral debris-containing hydroceles. 3. No significant sonographic abnormality of either epididymis. Report Dictated on Electronically Signed By: Miquel Ramsey MD Electronically Signed Date/Time: 03/04/2024 3:18 PM [facility] Patient Name: ABDIFATAH MACARIO : 1950 Exam Date/Time: 03/04/2024 08:15 Procedure: US SCROTUM Ordering Provider: DEMPSEY NANCY Reason For Exam: TESTICULAR SWELLING CLINICAL INFORMATION: Right testicular pain. Ultrasound scrotum with spectral color Doppler: The testicles are within normal limits in size and echogenicity without evidence of mass. The right testicle measures 4.4 x 2.5 x 2.5 cm and the left 5 x 3.1 x 3.1 cm. Normal spectral color blood flow is demonstrated to both testes. There is a 3 mm cyst in the left testicle. There is a debris-containing bilateral hydroceles. There is no significant abnormality of the epididymis on either side. There is a 7 x 6 x 6 mm cyst in the right epididymis [facility] Miquel Ramsey MD - 03/04/2024 Patient Name: ABDIFATAH MACARIO : 1950 Exam Date/Time: 03/04/2024 08:15 Procedure: US SCROTUM Ordering Provider: DEMPSEY NANCY Reason For Exam: TESTICULAR SWELLING CLINICAL INFORMATION: Right testicular pain. Ultrasound scrotum with spectral color Doppler: The testicles are within normal limits in size and echogenicity without evidence of mass. The right testicle measures 4.4 x 2.5 x 2.5 cm and the left 5 x 3.1 x 3.1 cm. Normal spectral color blood flow is demonstrated to both testes. There is a 3 mm cyst in the left testicle. There is a debris-containing bilateral hydroceles. There is no significant abnormality of the epididymis on either side. There is a 7 x 6 x 6 mm cyst in the right epididymis IMPRESSION: 1. No significant sonographic abnormality of either testicle. 2. Bilateral debris-containing hydroceles. 3. No significant sonographic abnormality of either epididymis. Report Dictated on Electronically Signed By: Miquel Ramsey MD Electronically Signed Date/Time: 03/04/2024 3:18 PM EST [facility] Radiology Study observation (narrative) [facility] [employer] US.doppler Scrotum and testi cleOrdered By: Miquel Ramsey on 03-04-2024 Issue Work Phone: 36on 02-27-2024 36 Last office visit:01/25/24 Next office visit:03/07/24 Normal [facility] [employer] [facility] Chest without Contraston Chest without Contrast [facility] Imaging Services [address] [place] [address] Chest without Contrast MR#: [id number] Acct: [id number] Name: ABDIFATAH MACARIO Rep #: [id number] : 1950 M 73 From: Miah auguste MD PCP: Dr. Danial Dempsey MD Status: REG CLI Study: Chest without Contrast Date of Exam: 01/31/24 Exam# [id number] Ordering Dr: Caroline Calloway [id number] STUDY: CT CHEST WITHOUT CONTRAST REASON FOR EXAM: Male, 73 years old. Nodule on lung RADIATION DOSAGE (If Supplied By Facility): CTDIvol = ( 17.65 ) mGy, DLP = ( 608.49 ) mGycm TECHNIQUE: Transaxial imaging was performed without the administration of intravenous contrast material. Multiplanar coronal and sagittal images were reformatted. Individualized dose optimization techniques were used for this CT. COMPARISON: Comparison is made with prior study dated October 23, 2022. FINDINGS: CHEST Stable small bilateral axillary lymph nodes. Stable 5 mm noncalcified nodule seen in the lateral aspect of the right upper lobe as seen on axial image #39. There is no demonstrated pleural abnormality. There are calcifications of the coronary arteries. There are multiple small lymph nodes within the mediastinum, which are normal in size and morphology most compatible with reactive lymph hyperplasia. Normal hilar regions. Normal unenhanced pulmonary arteries. There is atherosclerotic calcification of the aortic arch. There are degenerative changes of the thoracic spine. Small hiatal hernia. CT/Chest without Contrast IMPRESSION: Stable 5 mm noncalcified nodule in the lateral aspect of the right upper lobe as described. Twelve-month follow-up CT scan recommended. Electronically Signed: Miah Nieves MD at 15:07 [facility] , CC: Dr. aDnial Dempsey MD; PRADIP Jones [employer] Worker: Signed Normal [facility] 36on 01-30-2024 36 Name of caller: Abdifatah Contact phone number: [phone] Relationship to Patient: patient Provider: Roselyn Practice: [facility] Chief Complaint/Reason for Call: Patient states he would like to start with physical therapy first before receiving referral. Please advise patient with further questions. Best time of day caller can be reached: any Patient advised that office/PCP has 24-48 business hours to return their call: Yes Normal [facility] XR Hip - right 3 Viewson 1. Severe degenerati ve arthritis of the right hip. 2. Shallow superolateral right femoral neck cam lesion compatible with BRENDAN. 3. Moderate degenerative arthritis of the left hip. Report Dictated on Electronically Signed By: Miquel Ramsey MD Electronically Signed Date/Time: 01/28/2024 5:21 PM [facility] Patient Name: ABDIFATAH MACARIO : 1950 Exam Date/Time: 01/25/2024 10:38 Procedure: XR HIP 2 OR 3 VW RIGHT Ordering Provider: DEMPSEY NANCY Reason For Exam: Hip pain, chronic, articular cartilage eval, xray done CLINICAL INFORMATION: Anterior right hip pain. Right hip: An AP view of the pelvis and AP and frogleg lateral views of the right hip demonstrate no evidence of acute fracture or femoral head dislocation. The there is severe superior right hip joint pain greatest laterally with [id number]. 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 No bone erosion or periosteal reaction is seen. The pelvis is intact. There are mild degenerative changes of the symphysis pubis. There is moderate lateral left superior hip joint narrowing. [facility] Miquel Ramsey MD - 01/28/2024 Patient Name: ABDIFATAH MACARIO : 1950 Exam Date/Time: 01/25/2024 10:38 Procedure: XR HIP 2 OR 3 VW RIGHT Ordering Provider: DEMPSEY NANCY Reason For Exam: Hip pain, chronic, articular cartilage eval, xray done CLINICAL INFORMATION: Anterior right hip pain. Right hip: An AP view of the pelvis and AP and frogleg lateral views of the right hip demonstrate no evidence of acute fracture or femoral head dislocation. The there is severe superior right hip joint pain greatest laterally with [id number]. 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 No bone erosion or periosteal reaction is seen. The pelvis is intact. There are mild degenerative changes of the symphysis pubis. There is moderate lateral left superior hip joint narrowing. IMPRESSION: 1. Severe degenerative arthritis of the right hip. 2. Shallow superolateral right femoral neck cam lesion compatible with BRENDAN. 3. Moderate degenerative arthritis of the left hip. Report Dictated on Electronically Signed By: Miquel Ramsey MD Electronically Signed Date/Time: 01/28/2024 5:21 PM EST [facility] XR Hip - right 3 ViewsOrdere d By: Miquel Ramsey on 01-28-2024 [facility] [employer] Work Phone: Bacteria identified Cx Nom ( U)Ordered By: Caron Richey on 01-27-2024 Interpretation and review of laboratory results Normal [facility] Urine cultureOrdered By: Jennifer Richey on 01-27-2024 Bacteria identified Cx Nom (U) Normal urogenital robert present [facility] [employer] 25-hydroxyvitamin D3 [Mass/V ol]on 01-26-2024 25-hydroxyvitamin D [Mass/Vol] 54 ng/mL 30 - 100 ng/mL [facility] Comment on above: Vitamin D Status 25- [place] Vitamin D: Deficiency: <20 ng/mL Insufficiency: 20 - 29 ng/mL Optimal: > or = 30 ng/mL For 25-OH Vitamin D testing on patients on D2-supplementation and patients for whom quantitation of D2 and D3 fractions is required, the QuestAssureD(TM) 25-OH VIT D, (D2,D3), LC/MS/MS is recommended: order code 20599 (patients >2yrs). See Note 1 Note 1 For additional information, please refer to http://education.[employer]/faq/QHB978 (This link is being provided for informational/ educational purposes only.) Cobalamin (Vitamin B12) [Mas s/Vol]on 01-26-2024 Interpretation and review of laboratory results Abnormal [facility] [employer] No Panel Informationon 01-25 [facility] [employer] Vitamin B12on 01-26-2024 Cobalamin (Vitamin B12) [Mass/Vol] pg/mL High 200 - 1100 pg/mL [facility] [employer] Office Visiton 01-25-2024 Follow-up visit [id number] AmirahAbdifatah 1950 M Date Provider Department Center 01/25/2024 [id number] DEMPSEY Yara FAMILY P None Family History Problem Relation Age of Onset Liver disease Mother Comments: BAILEY Breast cancer Sister 40 Kidney disease Other Comments: dye-induced renal failre Family Status - Relation Status Age at Mother Sister Other Level of Service:31082 [place] OFFICE/OUTPATIENT ESTABLISHED HIGH MDM 40 MIN Reason for Visit and Comments: Health Maintenance [872] - Bp, Pain right hip. Normal [facility] Progress Noteon 01-25-2024 Progress Note Lasix as needed, currently every other day most of the time. Normal [facility] Progress Note Discuss more at next ov. Consider pharmacotherapy vs bariatrics. Normal [facility] Progress Note Could consider pharmacotherapy especitlly in view of now with significant CAD requiring stent Normal [facility] Progress Note Pepcid 20 mg, proton ix 40 mg controled if follows lifestyle recs. Normal [facility] Progress Note Crestor 40 mg Normal [facility] Progress Note Controlled on metoprolol. Does not tolerate DOREEN due to low BP. Normal [facility] Progress Note Continue brillinta a nd asa per cardio Normal [facility] Progress Note Pt asked if they hav e been to specialist,been in ER /hospitalized or had testing since last visit. No Patient was able to ambulate safely to the examination room. Provider was not notified of possible fall risk [facility] Progress Note [address] [address] Dept: [phone] Dept Loc: [phone] Visit type: Established patient Reason for Visit: Health Maintenance (Bp, Pain right hip. 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 Mild diffuse LAD, distal disease. Mod luminal disease up to 50% prox circ. [place] [facility] 11/28/2023. See in media Current Assessment & Plan Crestor 40 mg Essential hypertension Current Assessment & Plan Controlled on metoprolol. Does not tolerate DOREEN due to low BP. Endocrine/Metabolic Obesity, morbid (HCC) Current Assessment & Plan Discuss more at next ov. Consider pharmacotherapy vs bariatrics. Other Hyperlipidemia Overview Last Assessment & Plan: Assessment: Compliant with Rx. Following with cardiology/PCP. Capillary leak syndrome Overview Last Assessment & Plan: Assessment: Patient reports this is chronic, started after chemotherapy. Takes Lasix, wears compression stockings. Current Assessment & Plan Lasix as needed, currently every other day most of the time. Other Visit Diagnoses Chronic hip pain, right - Primary suspect OA, r/o impingemnt vs muscular. X ray and PT. heat, consider volateren gel, lidocaine patch. Tylenol Relevant Orders XR hip right 2 or 3 views External referral to Physical Therapy Vitamin D deficiency Relevant Orders Vitamin D Deficiency Screening (Vit D 25) Paresthesia of foot, bilateral Relevant Orders Vitamin B12 Pain in right testicle Relevant Orders US scrotum Epididymitis check urine cx. start Bactrim DS. u/s of scrotum Relevant Medications sulfamethoxazole-trime thoprim (Bactrim DS) 800-160 MG tablet Dysuria Relevant Orders POCT urinalysis dipstick manually resulted (Completed) Urine culture Follow up in about 6 weeks (around 03/07/2024) for bp, testicle, hip pain. 70 minutes in obtaining hx, physical exam, review of records, documentation, counseling of pt, coordination of care. Subjective HPI 73 yo recent cath and CAD stent. Never has had angina. Doing well on brillinta and ASA. C/o gradual onset right hip Flexor pain, radiates down inner thigh along sartorius. Worse with flexion, adduction, internal rotation. Sometimes sharp. Walks with a hitch at times, loosens up with walking and pain application- uses a thermacare patch with walking. Hurts with rolling over onto opposite side. Able to lie on that side without pain. Has chronic paresthesias in toes, unchanged. Not hot or inflamed. No known injury. Not related to testicular inflammation. Last couple days right testicle swollen and tender to touch. Hx epididymitis on that side, occasionally will swell over the years since. Now also tender. No fever or chills, F,U,D, hematuria. Stopped vit E. Had amox in last couple weeks for dental work. Takes lasix about every other day. 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 Review of Systems All other systems reviewed and are negative. Or noncontributory No Known Allergies Social History Tobacco Use Smoking status: Never Passive exposure: Never Smokeless tobacco: Never Substance Use Topics Alcohol use: Yes Comment: occasion Objective BP 112/69 (BP Location: Left arm, Patient Position: Sitting) Pulse 56 Temp 36.1 ?C (97 ?F) (Temporal) Ht 5' 8 (1.727 m) Wt 238 lb 12.8 oz (108 kg) BMI 36.31 kg/m? Physical Exam Vitals and nursing note reviewed. Constitutional: Appearance: Normal appearance. He is obese. HENT: Head: Normocephalic. Cardiovascular: Rate and Rhythm: Normal rate and regular rhythm. Heart sounds: Normal heart sounds. No murmur heard. No friction rub. No gallop. Abdominal: Comments: protuberant Genitourinary: Comments: Buried penis. Left testicle nontender, nonswollen, cord and epididymis palpable and nontender. Right scrotal sac slightly swollen, no erythtma or redness, cord palplable but slightly thickened and tender, epididymis posterior and tender, testicle slightly tender. No palpable hernia. skin penis and scrotum intact. Musculoskeletal: General: No swelling, tenderness or deformity. Comments: Compression stockings in place. Neurological: General: No focal deficit present. Mental Status: He is alert and oriented to person, place, and time. Cranial Nerves: No cranial nerve deficit. Motor: Weakness present. Gait: Gait abnormal. Comments: Mildly an (more content not included)... Normal [facility] URINE CULTUREon 01-25-2024 Bacteria identified Cx Nom (U) URINE CULTURE Reference Normal urogenital robert present [ S = SUSCEPTIBLE R = RESISTANT I = INTERMEDIATE S-DD = Susceptible-dose dependent NS = Non-susceptible NO = No Interpretation ] Normal [facility] Comment on above: Performed By: #### L [id number] #### Carton Liner: TANGELA WARREN ([id number]) [facility] ([facility]) [address] [place] [address] Urinalysis macro (dipstick) panel (U)on 01-25-2024 Bilirubin, UA Negative [facility] Blood, UA Trace-Intact [facility] Glucose, UA Negative [facility] Ketones, POC (mg/dL) Negative [facility] Leukocytes, UA Negative [facility] Nitrite, UA Negative [facility] pH, UA 5.5 [facility] Protein, UA Trace [facility] Spec Grav, UA 1.020 [facility] Urobilinogen, UA 0.2 Mikea He alth [facility] XR Hip - right 3 Viewson Radiology Study observation (narrative) [facility] Cardiology Visit Reporton Cardiology Visit Report [facility] [address] [place] [address] OFFICE VISIT Date of Service: 12/25/23 MR#: [id number] Acct: [id number] Name: ABDIFATAH MACARIO Rep #: [id number] : 1950 Provider: PRADIP Bean Age/Sex: 73/M Location: [facility] Status: Signed HPI HPI History of Present Illness Details: ABDIFATAH MACARIO, is a 73 M who presents to the office today for a follow-up visit. He is a gentleman with a history of chronic Cheung's esophagitis, small patent foramen ovale, hypertension and hyperlipidemia who returns for routine follow-up visit. He does have a hx of right breast cancer with chemo and radiation in [id number]. After his last office visit he was concerned about family history of coronary artery disease. He did undergo a coronary calcium score. Coronary calcium score was significantly elevated at 2542. It was recommended that he undergo a diagnostic heart catheterization. Because he was not symptomatic this was denied by his insurance. He did undergo a stress test. Patient was able to walk 6 minutes for total of 7 METS. No ischemia was noted. Echocardiogram demonstrated an ejection fraction of 65%. RVSP of 37 mmHg. He did undergo a diagnostic heart catheterization November 28, 2023. This demonstrated EF of 65%, left main with mild calcification with mild luminal irregularities, LAD moderate calcification, mild diffuse disease noted in the proximal and mid anterior descending and mild disease present. Circumflex less than 30%, proximal circumflex moderate luminal irregularities up to 50%, ramus mild luminal irregularities, RCA dominant calcified vessel with left 80% proximal stenosis and moderate mid segment disease with mild distal disease. Patient underwent stenting to his proximal RCA. He is not sure about cardiac rehab. It is more of the timing for this. His HRs have been on the lower side with starting the metoprolol. He also notes that his Bp has been okay at home. He does not have any chest discomfort/heaviness/t ightness. He does not have any worsening symptoms of shortness of breath. He denies any PND. He does not have any orthopnea. He does not have any symptoms of congestive heart failure. He does not have any palpitations that he is aware of. He does not have any lightheadedness or dizziness. He does not have any near-syncope or syncope. He does have chronic swelling. He does not have any symptoms of claudication. 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 Is patient in pain?: No Allergies No Known Allergies Allergy (Verified 12/25/23 09:33) Medications ???Medication ???Instructions ???Recorded ???Confirmed ???Type pantoprazole 40 mg tablet,delayed 40 mg PO QDAY acid reflux 90 days 07/28/17 12/25/23 History release #90 tabs multivitamin 1 tab PO DAILY supplement 02/24/20 12/25/23 History omega-3 fatty acids 1,000 mg 1,000 mg PO DAILY supplement 02/24/20 12/25/23 History capsule potassium chloride 10 mEq 10 meq PO DAILY supplement 02/24/20 12/25/23 History capsule,extended release tamsulosin 0.4 mg capsule 0.4 mg PO DAILY prostate 02/24/21 12/25/23 History cholecalciferol (vitamin D3) 125 125 mcg PO DAILY supplement 04/13/23 12/25/23 History mcg (5,000 unit) capsule furosemide 20 mg tablet 20 mg PO BID water pill 04/13/23 12/25/23 History mecobalamin (vitamin B12) 5,000 5,000 mcg PO DAILY supplement 04/13/23 12/25/23 History mcg chewable tablet rosuvastatin 40 mg tablet mg PO 04/13/23 12/25/23 History aspirin 81 mg tablet,delayed 81 mg PO BREAKFAST #90 tabs 11/29/23 12/25/23 Rx release ticagrelor 90 mg tablet (Brilinta) 90 mg PO BID #180 tabs 12/18/23 12/25/23 Rx metoprolol tartrate 25 mg tablet 25 mg PO BID #180 tabs 12/25/23 12/25/23 Rx Have you fallen in the past year?: No PFSH Medical History Elevated coronary artery calcium score Abnormal screening CT of chest Bile reflux gastritis Preop cardiovascular exam Obesity Cheung esophagus Essential (primary) hypertension Patent foramen ovale Breast cancer in male Hyperlipidemia Surgical History History of coronary artery stent placement (11/28/23) History of total bilateral knee replacement (TKR) H/O right mastectomy Family History Other Breast cancer (more content not included)... Normal [facility] CR - History AND Physicalon 12-21-2023 CR - History & Physical [facility] [address] [place] [address] CR - History Physical MR#: [id number] Acct: [id number] Name: ABDIFATAH MACARIO Rep #: [id number] : 1950 73 From: Ilir Matos BS, RVT PCP: Dr. Danial Dempsey MD DOS: 12/21/23 CR - History Physical General Arrival date:: 12/21/23 Arrival time:: 08:08 Date of Referral:: 11/28/23 Date of CR Evaluation:: 12/21/23 Referring Physician: Dr. Pardo Primary Diagnosis: PCI History of Present Cardiac Event Onset Date PTCA or coronary stenting:: Yes Vessel: RCA onset 11/28/23 Medications Ambulatory Orders ???Medication ???Instructions ???Recorded pantoprazole 40 mg tablet,delayed 40 mg PO QDAY acid reflux 90 days 07/28/17 release #90 tabs multivitamin 1 tab PO DAILY supplement 02/24/20 omega-3 fatty acids 1,000 mg 1,000 mg PO DAILY supplement 02/24/20 capsule potassium chloride 10 mEq 10 meq PO DAILY supplement 02/24/20 capsule,extended release tamsulosin 0.4 mg capsule 0.4 mg PO DAILY prostate 02/24/21 cholecalciferol (vitamin D3) 125 125 mcg PO DAILY supplement 04/13/23 mcg (5,000 unit) capsule furosemide 20 mg tablet 20 mg PO BID water pill 04/13/23 mecobalamin (vitamin B12) 5,000 5,000 mcg PO DAILY supplement 04/13/23 mcg chewable tablet rosuvastatin 40 mg tablet mg PO 04/13/23 aspirin 81 mg tablet,delayed 81 mg PO BREAKFAST #90 tabs 11/29/23 release aspirin 81 mg tablet,delayed 81 mg PO DAILY@0800 #120 tabs 11/29/23 release metoprolol tartrate 25 mg tablet 25 mg PO BID #180 tabs 11/29/23 ticagrelor 90 mg tablet (Brilinta) 90 mg PO BID #180 tabs 12/18/23 Allergies Allergies No Known Allergies Allergy (Verified 11/01/23 10:01) Sleep Disorder Evaluation Hx of Sleep Apnea: No Do you snore loudly (louder than talking or can be heard through closed doors)?: No Do you often feel tired/ fatigued/ sleepy during daytime?: No Has anyone observed you stop breathing during sleep?: No History of Hypertension (for STOP score): Yes STOP Results: Negative Advanced Directives Advanced Directives Power of Agency Trainer: Yes Living Will: Yes Advance Directives Information Provided: No Advance Directives on File: Yes DNR Order?:: No Past Medical History Covid-19 Screening Physicial Symptoms Other Clinical Concerns Exposure Risk Pertinent Comorbidities 65 years or older:: Yes Has a serious heart condition:: Yes Past Medical Illness Past Medical History (Updated 12/07/23 @ 00:02 by Background Daemon) Elevated coronary artery calcium score R93.[address] of chest R93.89 Bile reflux gastritis K29.60 Preop cardiovascular exam Z01.810 Obesity E66.9 Cheung esophagus K22.70 Essential (primary) hypertension I10 Patent foramen ovale Q21.1 Breast cancer in male C50.929 right Hyperlipidemia E78.5 Past Surgical History Past Surgical History (Updated 12/07/23 @ 00:02 by Background Daemon) History of coronary artery stent placement (11/28/23) Z95.5 4.0 x 38 HOWARD FRONTIER AIYANA to pRCA 11/28/23 History of total bilateral knee replacement (TKR) Z96.653 Right 03/2020, left 12/2020 H/O right mastectomy Z90.11 Family History Summary Family History Other Breast cancer CAD (coronary artery disease) Social History Smoking History Smoking Status: Never smoker Alcohol Use Alcohol Usage: Yes (rare) Occupation Occupation (List type of work in comments):: Retired Hobbies, Recreation, Social Activities Hobbies: Other Recreational Activities: I am able to engage in all my recreational activities Social Environment Status Marital Status: Current Living Arrangements Living Environment:: Spouse Children How many children do you have?: 0 Safety Do you feel safe in your surroundings?: Yes Assistance Do you need any assistance at home?: no Review of Systems Review of Systems Hints Review of Present Symptoms: Reports Fatigue, Appetite - Normal and Appetite - Special Diet; Denies Shortness of Breath at Rest, Shortness of Breath with Exertion, PVD, Operative Discomfort, Angina, Wound Healing, Dizziness/Lightheadedn ess, Heart Arrhythmia/Irregularit ies, Sleep - Normal or Sexual Changes Pain Is Patient Pain Free?: No Pain Location: back, upper extremity and lower extremity Pain Level: 3/10 Risk Factor Assessment Chief Complaint Chief Complaint: PCI Vital Signs Pulse Ox: 96 Blood Pressure: 105/68 Pulse Pulse Rate: 63 Hypertension How long have you been treated?: 3-4 years Blood Pressure Sitting - Right Arm: 105/68 Obesity Height: 5 ft 8.11 in Weight:: 232 lb Weight in Pounds: 232.0 lbs Body Mass Index (BMI): 35.2 Nutritional Referral for Obesity: No Physical Inactivity Physical Inactivity: None Risk Stratification Risk Guide (more content not included)... Normal [facility] DBT Breast - left screeningo n 03-26-2023 No mammographic evidence of malignancy. ASSESSMENT: Category 1 Negative RECOMMENDATION: Routine screening mammogram in 1 year. Left Report Dictated on Electronically Signed By: Lizbeth Obrien MD Electronically Signed Date/Time: 03/26/2023 10:[address] [facility] Patient Name: ABDIFATAH MACARIO : 1950 Exam Date/Time: 03/26/2023 08:22 Procedure: BI MAMMOGRAM SCREENING TOMOSYNTHESIS LEFT Ordering Provider: DEMPSEY NANCY Reason For Exam: z12.31 Image views: 2D CC and MLO views of the left breast were acquired. 3D CC and MLO views of the left breast were acquired. Images were reviewed with CAD. Markings on images: BB's = Nipples; skin lesions [employer] = Palpable Line = Scar COMPARISON: 12/08/2021 and 12/07/2020 TISSUE DENSITY: BIRADS A - The breast tissue is almost entirely fat. FINDINGS: No suspicious masses, architectural distortions or suspiciously clustered microcalcifications are identified. There is no evidence of skin thickening or nipple retraction. There are no significant changes when compared with prior studies. [facility] Lizbeth Obrien MD - 03/26/2023 Patient Name: ABDIFATAH MACARIO : 1950 Exam Date/Time: 03/26/2023 08:22 Procedure: BI MAMMOGRAM SCREENING TOMOSYNTHESIS LEFT Ordering Provider: DEMPSEY NANCY Reason For Exam: z12.31 Image views: 2D CC and MLO views of the left breast were acquired. 3D CC and MLO views of the left breast were acquired. Images were reviewed with CAD. Markings on images: BB's = Nipples; skin lesions [employer] = Palpable Line = Scar COMPARISON: 12/08/2021 and 12/07/2020 TISSUE DENSITY: BIRADS A - The breast tissue is almost entirely fat. FINDINGS: No suspicious masses, architectural distortions or suspiciously clustered microcalcifications are identified. There is no evidence of skin thickening or nipple retraction. There are no significant changes when compared with prior studies. IMPRESSION: No mammographic evidence of malignancy. ASSESSMENT: Category 1 Negative RECOMMENDATION: Routine screening mammogram in 1 year. Left Report Dictated on Electronically Signed By: Lizbeth Obrien MD Electronically Signed Date/Time: 03/26/2023 10:27 AM EST [facility] Radiology Study observation (narrative) [facility] DBT Breast - left screeningO rdered By: Lizbeth Obrien on 03-26-2023 [facility] CBC panel Auto (Bld)on 03-04 Erythrocyte distribution width (RBC) [Ratio] 13.2 % 11.0 - 15.0 % [facility] Hematocrit (Bld) [Volume fraction] 41.7 % 38.5 - 50.0 % [facility] Hemoglobin (Bld) [Mass/Vol] 14.0 g/dL 13.2 - 17.1 g/dL [facility] MCH (RBC) [Entitic mass] 29.5 pg 27.0 - 33.0 pg [facility] MCHC (RBC) [Mass/Vol] 33.6 g/dL 32.0 - 36.0 g/dL [facility] MCV (RBC) [Entitic vol] 88.0 fL 80.0 - 100.0 fL [facility] Platelet mean volume (Bld) [Entitic vol] 10.0 fL 7.5 - 12.5 fL [facility] Platelets (Bld) [#/Vol] 276 10*3/uL [facility] RBC (Bld) [#/Vol] 4.74 10*6/uL [facility] WBC (Bld) [#/Vol] 5.8 10*3/uL [facility] Comprehensive metabolic 1998 panelon 03-04-2023 Albumin [Mass/Vol] 4.2 g/dL 3.6 - 5.1 g/dL [facility] Albumin/Globulin [Mass ratio] 1.8 {ratio} [facility] ALP [Catalytic activity/Vol] 77 U/L 35 - 144 U/L [facility] ALT [Catalytic activity/Vol] 12 U/L 9 - 46 U/L [facility] AST [Catalytic activity/Vol] 14 U/L 10 - 35 U/L [facility] Bilirubin [Mass/Vol] 1.3 mg/dL High 0.2 - 1 .2 mg/dL [facility] Calcium [Mass/Vol] 9.0 mg/dL 8.6 - 10. 3 mg/dL [facility] Chloride [Moles/Vol] 104 mmol/L 98 - 11 0 mmol/L [facility] CO2 [Moles/Vol] 28 mmol/L 20 - 32 mmol/L [facility] [employer] Creatinine [Mass/Vol] 0.95 mg/dL 0.70 - 1.28 mg/dL [facility] [employer] GFR/1.73 sq M.predicted among non-blacks MDRD (S/P/Bld) [Vol rate/Area] 86 mL/min/{1.73_m2} > OR = 60 mL/min/1.73m 2 [facility] [employer] Globulin (S) [Mass/Vol] 2.3 g/dL [facility] [employer] Glucose [Mass/Vol] 110 mg/dL High 65 - 99 mg/dL [facility] [employer] Comment on above: Fasting reference interval For someone without known diabetes, a glucose value between 100 and 125 mg/dL is consistent with prediabetes and should be confirmed with a follow-up test. Potassium [Moles/Vol] 4.4 mmol/L 3.5 - 5.3 mmol/L [facility] [employer] Protein [Mass/Vol] 6.5 g/dL 6.1 - 8.1 g/dL [facility] [employer] Sodium [Moles/Vol] 140 mmol/L 135 - 146 mmol/L [facility] [employer] Urea nitrogen [Mass/Vol] 13 mg/dL 7 - 25 mg/dL [facility] Urea nitrogen/Creatinine [Mass ratio] SEE NOTE: [facility] Comment on above: Not Reported: BUN an d Creatinine are within reference range. Hemoglobin A1con 03-04-2023 HbA1c (Bld) [Mass fraction] 6.3 % [facility] Comment on above: For someone without known diabetes, a hemoglobin A1c value between 5.7% and 6.4% is consistent with prediabetes and should be confirmed with a follow-up test. For someone with known diabetes, a value <7% indicates that their diabetes is well controlled. A1c targets should be individualized based on duration of diabetes, age, comorbid conditions, and other considerations. This assay result is consistent with an increased risk of diabetes. Currently, no consensus exists regarding use of hemoglobin A1c for diagnosis of diabetes for children. HbA1c performed on Janette platform. Effective 01/30/23 a change in test platforms may have shifted HbA1c results compared to historical results. Lipid 1996 panelon 4 Cholesterol [Mass/Vol] 151 mg/dL [facility] - 200 mg/dL [facility] Cholesterol in HDL [Mass/Vol] 51 mg/dL > OR = 40 [facility] Cholesterol in LDL [Mass/Vol] 74 mg/dL mg/dL (calc) [facility] Comment on above: Reference range: <10 0 Desirable range <100 mg/dL for primary prevention; <70 mg/dL for patients with CHD or diabetic patients with > or = 2 CHD risk factors. LDL-C is now calculated using the Maurisio-Howard calculation, which is a validated novel method providing better accuracy than the Friedewald equation in the estimation of LDL-C. Maurisio SS et al. VANCE. 2013;310(19): 3002-4293 (http://education.Swogo/faq/TZX009) Cholesterol non HDL [Mass/Vol] 100 mg/dL [facility] Comment on above: For patients with di abetes plus 1 major ASCVD risk factor, treating to a non-HDL-C goal of <100 mg/dL (LDL-C of <70 mg/dL) is considered a therapeutic option. Cholesterol.total/Cho lesterol in HDL [Mass ratio] 3.0 {ratio} [facility] Triglyceride [Mass/Vol] 154 mg/dL High [facility] - 150 mg/dL [facility] No Panel Informationon 03-04 Interpretation and review of laboratory results Abnormal [facility] PSA Screeningon 03-04-2023 Prostate specific Ag [Mass/Vol] 0.97 ng/mL < OR = 4.00 [facility] Comment on above: The total PSA value from this assay system is standardized against the WHO standard. The test result will be approximately 20% lower when compared to the equimolar-standardized total PSA ([place]). Comparison of serial PSA results should be interpreted with this fact in mind. This test was performed using the Siemens chemiluminescent method. Values obtained from different assay methods cannot be used interchangeably. PSA levels, regardless of value, should not be interpreted as absolute evidence of the presence or absence of disease. TSHon 03-04-2023 TSH Qn 2.57 m[IU]/L [facility] Vitamin D Deficiency Screeni ng (Vit D 25)on 03-04-2023 25-hydroxyvitamin D3 [Mass/Vol] 51 ng/mL 30 - 100 ng/mL [facility] Comment on above: Vitamin D Status 25- [place] Vitamin D: Deficiency: <20 ng/mL Insufficiency: 20 - 29 ng/mL Optimal: > or = 30 ng/mL For 25-OH Vitamin D testing on patients on D2-supplementation and patients for whom quantitation of D2 and D3 fractions is required, the QuestAssureD(TM) 25-OH VIT D, (D2,D3), LC/MS/MS is recommended: order code 96990 (patients >2yrs). See Note 1 Note 1 For additional information, please refer to http://education.Swogo/faq/XOV303 (This link is being provided for informational/ educational purposes only.) Absolute lymphocyte countOrd ered By: Caroline Calloway on 11-03-2022 Lymphocytes Auto (Unsp spec) [#/Vol] 2.18 10*3/uL 0.83-4.51 [facility] Basophil percentageOrdered B y: Caroline Calloway on 11-03-2022 Basophils/100 WBC (Bld) 0.4 % 0-1 [facility] Chloride [Moles/Vol] 106 mmol/L 98-107 [facility] Eosinophils/100 WBC (Bld) 1.8 % 0-5 [facility] Glucose [Mass/Vol] 98 mg/dL 74-106 [facility] Neutrophils (Bld) [#/Vol] 3.9 10*3/uL 2.0-7.7 [facility] Neutrophils/100 WBC (Bld) 57.1 % 47-70 [facility] Potassium [Moles/Vol] 3.9 mmol/L 3.5-5.1 [facility] Sodium [Moles/Vol] 138 mmol/L 136-145 [facility] WBC (Bld) [#/Vol] 6.8 10*3/uL 4.4-11.0 [facility] Blood erythrocytes count (nu mber/volume)Ordered By: Caroline Calloway on 11-03-2022 RBC (Bld) [#/Vol] 4.74 10*6/uL 4.6-6.2 [facility] Blood hemoglobin measurement (mass/volume)Ordered By: Caroline Calloway on 11-03-2022 Hemoglobin (Bld) [Mass/Vol] 14.1 g/dL 13.0-16.5 [facility] Blood lymphocytes/100 leukoc ytesOrdered By: Caroline Calloway on 11-03-2022 Lymphocytes/100 WBC (Bld) 32.2 % 19-41 [facility] Blood monocytes/100 leukocyt esOrdered By: Caroline Calloway on 11-03-2022 Monocytes/100 WBC (Bld) 8.4 % 0-10 [facility] Blood platelet mean volumeOr dered By: Caroline Calloway on 11-03-2022 Platelet mean volume (Bld) [Entitic vol] 9.2 fL 6.2-12.0 [facility] Determination of erythrocyte mean corpuscular volume (MCV)Ordered By: Caroline Calloway on 11-03-2022 MCV (RBC) [Entitic vol] 87.8 fL 80-94 [facility] Hematocrit Auto (Bld) [Volum e fraction]Ordered By: Caroline Calloway on 11-03-2022 Hematocrit (Bld) [Volume fraction] 41.6 % 40-54 [facility] INR in Blood by Coagulation assayOrdered By: Caroline Calloway on 11-03-2022 INR Coag (Bld) [Relative time] 1.0 {INR} [facility] Laboratory - Chemistry and C hemistry - challengeOrdered By: Caroline Calloway on 11-03-2022 CO2 [Moles/Vol] 28.0 mmol/L 21.0-32.0 [facility] Urea nitrogen/Creatinine [Mass ratio] 9.9 mg/mg 10-20 [facility] Laboratory - CoagulationOrde red By: Caroline Calloway on 11-03-2022 aPTT Coag (Bld) [Time] 27.5 s 24.1-36.2 [facility] PT Coag (PPP) [Time] 13.0 s 11.7-14.9 [facility] Laboratory - Hematology and Cell countsOrdered By: Caroline Calloway on 11-03-2022 Erythrocyte distribution width (RBC) [Entitic vol] 43.9 fL 35.1-43.9 [facility] Erythrocyte distribution width (RBC) [Ratio] 13.6 % 11.6-14.6 [facility] Immature granulocytes/100 WBC (Bld) 0.100 % 0.0-0.9 [facility] Comment on above: IG% - Immature Granu locytes (promyelocytes, myelocytes and metamyelocytes) > 1% indicates that a LEFT SHIFT is Present. MCH (RBC) [Entitic mass] 29.7 pg 27.0-32.0 [facility] Nucleated RBC/100 WBC (Bld) [Ratio] 0 % 0-5 [facility] MCHC Auto (RBC) [Mass/Vol]Or dered By: Caroline Calloway on 11-03-2022 MCHC (RBC) [Mass/Vol] 33.9 g/dL 32-36 [facility] No Panel InformationOrdered By: Caroline Calloway on 11-03-2022 Estimated GFR (MDRD) Amer 94 mL/min >60 [facility] Comment on above: GFR Calc Estimated GFR (MDRD) Non-Af Amer 77 mL/min >60 [facility] Comment on above: Non- GFR Calc Platelets bldOrdered By: Conrad Calloway on 11-03-2022 Platelets (Bld) [#/Vol] 284 10*3/uL 150-450 [facility] Serum or plasma calcium clark urement (mass/volume)Ordered By: Caroline Calloway on 11-03-2022 Calcium [Mass/Vol] 9.0 mg/dL 8.5-10.1 [facility] Serum or plasma creatinine m easurement (mass/volume)Ordered By: Caroline Calloway on 11-03-2022 Creatinine [Mass/Vol] 1.01 mg/dL 0.70-1.30 [facility] Comment on above: The validity of the calculated GFR & GFRAA in patients over 70 years has not been determined. Clinical correlation is essential. Serum or plasma urea nitroge n measurement (mass/volume)Ordered By: Caroline Calloway on 11-03-2022 Urea nitrogen [Mass/Vol] 10 mg/dL 7-18 [facility] Thin prep Papanicolaou smear with manual screeningOrdered By: Caroline Calloway on 11-03-2022 Thin prep Papanicolaou smear with manual screening 4 5-15 [facility] Clinic Note - Heme Onc Michael nieves 04-10-2022 Clinic Note - Heme Onc Scheduling Retrieve Patient Instructions: Patient Instructions: Patient Instructions: RetrievePatient Instructions Instructions Typenutrition Instructions TREATMENT PLAN Diagnosis: Stage IIA male breast cancer 1. Return to clinic: 1 year 2. Lab orders: None 3. Radiology orders: Screening 3DMammogram will be requested for [place]- Tomosynthesis ([place]) after 11/2021 4. 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 [phone] Commentsarrival at 08:10 a.m. Follow Up Testing Appointment: Test Name(s)Mammogram Appointment Date & [id number] 00:00 [phone] to schedule End of Visit Documentation: Clinic Location/Phone Number: Clinic Location/Phone Number: [place] [phone] End Of Visit MU Report Item: Visit Summary given or mailed to patientyes Electronic Signatures: Oriana Brasher (Rev Cycl Spec) (Signed 10-Apr-2022 08:58) Authored: Retrieve Patient Instructions, RETURN VISITS, TESTING (Lab, Radiology, Other) APPOINTMENTS, End of Visit Documentation Last Updated: 10-Apr-2022 08:58 by Oriana Brasher (Rev Cycl Spec) Normal [facility]3] Clinic Note - Heme Onc-Follo w Up Visiton 04-10-2022 Clinic Note - Heme Onc-Follow Up Visit Patient Visit Information: Visit Type: Follow Up Visit Cancer History: Breast AJCC Edition: 7th (AJCC), Diagnosis Date: 20-Jan-2010, IIA, T1c pN1 M0 G2 Treatment Synopsis: 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 He presented to Dr. Barcenas at [facility] with a one-month history of a palpable mass in his right breast. He had a mammogram done on January 11, 2010 that showed a 1.3 cm dense mass in the right breast at the central region behind the nipple. This was followed by an ultrasound-guided biopsy on January 26, 2010 and at that point the mass measured 1.4 cm. The pathology report was infiltrating moderately differentiated carcinoma, grade 2. He was taken to the operating room by Dr. Barcenas on February 01, 2010 for a RIGHT total mastectomy with sentinel lymph node biopsy. Two sentinel lymph nodes were identified and one contained a 0.67 mm focus of metastatic cancer. Progesterone and estrogen receptors were positive and HER-2 was negative. The patient had BRCA testing and is negative for BRCA1 and 2 despite a very positive family history of breast cancer in a sister and 2 maternal aunts. He also had ADRIA testing and that was negative as well in 2010 He was given 4 cycles of adjuvant chemotherapy with Taxotere and Cytoxan concluding the last cycle on April 29, 2010. He was then referred on to radiation therapy and was treated at [facility] with radiation therapy to the chest wall in the involved lymph node area. Tamoxifen was started 07/2010- 05/2018 History of Present Illness: ID Statement: ABDIFATAH MACARIO is a 71 year old Male Chief Complaint: Breast cancer treatment follow-up and surveillance Interval History: Abdifatah presents for a breast cancer treatment follow-up and surveillance visit. This is our first encounter. He has been doing well overall. Denies concerns this visit. His energy is good. Denies issues with sleep or fatigue He denies any vision changes or headache issues, dizziness or loss of balance. 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 He denies any shortness of breath, cough, or chest pain He denies any new or unexplained bone aches or pains He denies any skin lesions or masses, oral sores lesions or infections He reports a normal appetite and normal bowel movements, and normal urination. Denies any new stomach pains, nausea, or vomiting. History of GERD and Biliary reflux. Sees GI. Limits red meats and processed sugars. exercise bike 3 times a week regularly sees PCP Review of Systems: Review of Systems: ROS 14 points performed, See HPI for exceptions System ReviewAll other systems have been reviewed and are negative for complaint. Allergies and Intolerances: Allergies: No Known Allergies: Active Outpatient Medication Profile: * Patient Currently Takes Medications as of 10-Apr-2022 10:46 documented in Structured Notes potassium chloride 10 mEq oral capsule, extended release: Last Dose Taken: , 1 cap(s) orally 2 times a day, Start Date: 26-Feb-2017 Protonix 40 mg oral delayed release tablet: Last Dose Taken: , 1 tab(s) orally once a day furosemide 20 mg oral tablet: Last Dose Taken: , 1 tab(s) orally once a day Crestor 20 mg oral tablet: Last Dose Taken: , 1 tab(s) orally once a day tamsulosin 0.4 mg oral capsule: Last Dose Taken: , 1 cap(s) orally once a day Vitamin B12: Last Dose Taken: Vitamin C 500 mg oral capsule: Last Dose Taken: , 1 cap(s) orally once a day Tylenol 8 HR Arthritis Pain 650 mg oral tablet, extended release: Last Dose Taken: , 2 tab(s) orally every 8 hours Medical History: 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: ICD-10: K22.70, Status: Active Malignant neoplasm of central portion of right male breast: ICD-10: C50.121, Status: Active Vitamin D deficiency: ICD-10: E55.9, Status: Active Chronic venous insufficiency: ICD-10: I87.2, Status: Active Non morbid obesity due to excess calories: ICD-10: E66.09, Status: Active Other osteoarthritis involving multiple joints: ICD-10: M15.8, Status: Active Dyslipidemia: ICD-10: E78.5, Status: Active GERD (gastroesophageal reflux disease): ICD-10: K21.9, Status: Active Diverticulosis: ICD-10: K57.90, Status: Active Social History: Social Substance History: Social Historydenies smoking, alcohol and drug use Smoking Statusnever smoker Additional History 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 Normal [facility]3] Clinic Note - Intakeon 04-10 Clinic Note - Intake Patient Visit Information: Visit TypeFollow Up Visit Patient Statesfollow up , Dr. Loredo transfer Source of Informationpatient Admission Information: Admission Since Last VisitNo Vital Signs: Temp (degrees C)36.6 degrees C Temperaturecore Heart Rate (beats/min)80 beats per minute Respiration (breaths/min)18 breath per minute BP Systolic (mm Hg)123 mmHg BP Diastolic (mm Hg)70 mmHg BP Mean (mm Hg)87 mmHg Height in cm170.4 centimeter(s) Height Methodmeasured no nurse available for verification Heightstanding Weight in kg104.4 kilogram(s) Weightstanding BMI (kg/m2)35.9 kg/M2 BSA (m2)2.22 M2 SpO2 (%)97 % SpO2 Patient Onroom air Pain Screening: Patient States Painno (0) Health Screening: Last [id number] Colonoscopy Resultsnormal 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 for intimate exam offered to patient: Patient hasdeclined Allergies: No Known Allergies: Active Outpatient Medication Profile: * Patient Currently Takes Medications as of 10-Apr-2022 08:21 documented in Structured Notes potassium chloride 10 mEq oral capsule, extended release: Last Dose Taken: , 1 cap(s) orally 2 times a day, Start Date: 26-Feb-2017 Protonix 40 mg oral delayed release tablet: Last Dose Taken: , 1 tab(s) orally once a day furosemide 20 mg oral tablet: Last Dose Taken: , 1 tab(s) orally once a day Crestor 20 mg oral tablet: Last Dose Taken: , 1 tab(s) orally once a day tamsulosin 0.4 mg oral capsule: Last Dose Taken: , 1 cap(s) orally once a day Vitamin B12: Last Dose Taken: Vitamin C 500 mg oral capsule: Last Dose Taken: , 1 cap(s) orally once a day Tylenol 8 HR Arthritis Pain 650 mg oral tablet, extended release: Last Dose Taken: , 2 tab(s) orally every 8 hours Notification: NotificationsAll annual screens currently due. Travel History: COVID-19 Screening Completedno exposure or symptoms Travel or ExposureNO travel to International locations in the past 30 days Falls: Have you fallen in the last 6 monthsno Do you have a fear of fallingno Do you feel you need assistanceno Is the patient using an assistive deviceno Not a falls riskimplement environmental risk factors interventions Spiritual/Procedural: Spiritual/cultural/rel igious practices important for us to knowno Oncology Nutrition: During the past 2 weeks, weight has(0) not changed Intake past month, compared to normal intake(0) unchanged Problems keeping me from eating past 2 weeks (0) no problem eating In the past month, my activity/functioning rating is(0) normal with no limitations Clinician notifiedno Score 6 or > notify clinician0 Adv Dir: Living [facility] POAyes Living Will Formsdocument already in EMR Healthcare POA Formsdocument already in EMR Violence: Are you or have you been threatened or abused physically,emotionally or sexually abused by anyoneno Do you feel UNSAFE going back to the place you are livingno Depression: Past 2 wks: [place] down, depressed or hopelessno Past 2 wks: [place] little interest/pleasure doing thingsno Any Thoughts of Harming Othersno In the Past Month: Have you wished you were or could go to sleep and not wake upno In the Past Month: Have you had any actual thoughts of killing yourselfno Lifetime: Have you ever done, started to do, or prepared to do anything to end your lifeno Substance: How many times in the past year have you hd 5 or more drinks within 24 hours0 How many times in past year have you used recreational or prescription drugs for non-medical reasons0 Nutrition/Learning: In the past month, was there any day when you or anyone in your family went hungry because you didn't have enough foodno Primary LanguageEnglish Do you, or others today, need extra help due to problems with hearing,speaking, seeing, moving around or learningno Electronic Signatures: Courtney Shah) (Signed 10-Apr-2022 08:23) Authored: Patient Visit Information, Vital Signs, Health Screening, 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, Allergies, Outpatient Medication Profile, Notification, Travel History, Falls, Spiritual/Procedural, Oncology Nutrition, Adv Dir, Violence, Depression, Substance, Nutrition/Learning Last Updated: 10-Apr-2022 08:23 by Courtney Shah) Normal [facility]3] DNA EXTRACTION AND STORAGEon 01-24-2022 DNA EXTRACTION AND STORAGE SEE BELOW Normal [facility]3] Comment on above: Result Comment: G enetics test results are available electronically in [facility] Acute and Community Record. Results will be sent on a separate report. In the AEMR, go to Community record -> click on Clinical documents -> go to Genetics Studies tab for results. Performed By: #### M AOT2 #### GENET[facility] [address] [address] [place], [place] [id number] MISC. GENETICS TESTon 2021 GENETICS RESULTS Canceled Normal [facility] Comment on above: Order Comment: TEST MISC. GENETICS TEST WAS CANCELLED, 01/24/2022 15:23 orderable test. mail order biller error.. Performed By: #### M ISCG #### [facility] [address] [address] [place], [place] [id number] GENETICS TEST NAME Canceled Normal [facility] Comment on above: Order Comment: TEST MISC. GENETICS TEST WAS CANCELLED, 01/24/2022 15:23 orderable test. mail order biller error.. Performed By: #### M ISCG #### [facility] [address] [address] [place], [place] [phone] DNA Extraction / Storageon 1 03-26-2021 DNA Extraction / Storage DNA Extraction / Storage [facility] [employer] REPORT: [id number] -- Patient: Abdifatah Macario Date of : 1950 Specimen: Peripheral Blood - EDTA Date received: 01/24/2022 Lab ID: [id number] Indication: Research Only Report date: 02/01/2022 Test: DNA Extraction / Storage Method: Routine Analysis DNA EXTRACTED AND STORED DNA was extracted from Peripheral Blood - EDTA obtained from Abdifatah Macario and has been stored. 69.7 ug of DNA is available for future studies. Final report signed by: Ramirez Warner Ph.D., FACMG, FCCMG Test performed at: [address], [place], [place] [address] FAX: [phone] Website: [email or web address] Referred by: Laurie Perez M.D. Normal [facility]3] ARAMNI SOFYA DIGITAL SCREEN UNI LEFTon 12-08-2021 Patient Name: ABDIFATAH MACARIO Mammography ACCESSION EXAM DATE/TIME PROCEDURE ORDERING PROVIDER [id number] 12/08/2021 08:02 EDT Breast Tomosynthechong LOREDO MD, LOIS J Scr Left CPT code 44673 [id number] Reason For Exam (MG Breast Tomosynthesis Scr Left) routine Report TIME SINCE LAST MAMMOGRAM: Last mammogram was performed 1 year ago. REASON FOR EXAM: screening, asymptomatic. PROCEDURE: MG BREAST TOMOSYNTHESIS SCR LEFT: DECEMBER 08, 2021 - 2D/3D Procedure 3D CC and MLO view(s) were taken of the left breast. 2D CC and MLO view(s) were taken of the left breast. Prior study comparison: December 07, 2020, left breast MG breast tomosynthesis scr left performed at [facility]. November 03, 2019, left breast MG breast tomosynthesis scr left performed at [facility]. October 28, 2018, left breast MG breast tomosynthesis scr left performed at [facility]. TISSUE DENSITY: BIRADS B - There are scattered fibroglandular densities. . FINDINGS: No suspicious masses, architectural distortions or suspiciously clustered microcalcifications are identified. There is no evidence of skin thickening or nipple retraction. There are no significant changes when compared with prior studies. No mammographic evidence of malignancy. Markings on images: BB's = Nipples; skin lesions [employer] = Palpable Line = Scar 2D digital mammography and tomosynthesis imaging were performed and reviewed with CAD. ASSESSMENT: Category 1 Negative Mammography Report RECOMMENDATION: Routine screening mammogram of the left breast in 1 year. . Report Dictated on --- Final --- Signed Date and Time: 12/08/2021 8:09 am Signed by: MD JANE, FADI Bhatti [facility] Fadi Lara MD - 12/08/2021 Patient Name: ABDIFATAH MACARIO Mammography ACCESSION EXAM DATE/TIME PROCEDURE ORDERING PROVIDER [id number] 12/08/2021 08:02 EDT Breast Tomosynthechong LOREDO MD, LOIS J Scr Left CPT code [id number] Reason For Exam (MG Breast Tomosynthesis Scr Left) routine Report TIME SINCE LAST MAMMOGRAM: Last mammogram was performed 1 year ago. REASON FOR EXAM: screening, asymptomatic. PROCEDURE: MG BREAST TOMOSYNTHESIS SCR LEFT: DECEMBER 08, 2021 - 2D/3D Procedure 3D CC and MLO view(s) were taken of the left breast. 2D CC and MLO view(s) were taken of the left breast. Prior study comparison: December 07, 2020, left breast MG breast tomosynthesis scr left performed at [facility]. November 03, 2019, left breast MG breast tomosynthesis scr left performed at [facility]. October 28, 2018, left breast MG breast tomosynthesis scr left performed at [facility]. TISSUE DENSITY: BIRADS B - There are scattered fibroglandular densities. . FINDINGS: No suspicious masses, architectural distortions or suspiciously clustered microcalcifications are identified. There is no evidence of skin thickening or nipple retraction. There are no significant changes when compared with prior studies. No mammographic evidence of malignancy. Markings on images: BB's = Nipples; skin lesions [employer] = Palpable Line = Scar 2D digital mammography and tomosynthesis imaging were performed and reviewed with CAD. ASSESSMENT: Category 1 Negative Mammography Report RECOMMENDATION: Routine screening mammogram of the left breast in 1 year. . Report Dictated on --- Final --- Signed Date and Time: 12/08/2021 8:09 am Signed by: MD LARA LAUREN B [facility] Work Phone: Radiology Study observation (narrative) [facility] Work Phone: [facility] SOFYA DIGITAL SCREEN UNI LEFTOrdered By: Fadi Lara on 12-08-2021 [facility] Work Phone: MG Breast Tomosynthesis Scr Lefton 12-08-2021 MG Breast Tomosynthesis Scr Left Patient Name: ABDIFATAH MACARIO Mammography ACCESSION EXAM DATE/TIME PROCEDURE ORDERING PROVIDER [id number] 12/08/2021 08:02 EDT MG Breast Tomosynthesis MD YOJANA, MARISSA Botello Scr Left CPT code 06643 [id number] Reason For Exam (MG Breast Tomosynthesis Scr Left) routine Report TIME SINCE LAST MAMMOGRAM: Last mammogram was performed 1 year ago. REASON FOR EXAM: screening, asymptomatic. PROCEDURE: MG BREAST TOMOSYNTHESIS SCR LEFT: DECEMBER 08, 2021 - 2D/3D Procedure 3D CC and MLO view(s) were taken of the left breast. 2D CC and MLO view(s) were taken of the left breast. Prior study comparison: December 07, 2020, left breast MG breast tomosynthesis scr left performed at [facility]. November 03, 2019, left breast MG breast tomosynthesis scr left performed at [facility]. October 28, 2018, left breast MG breast tomosynthesis scr left performed at [facility]. TISSUE DENSITY: BIRADS B - There are scattered fibroglandular densities. . FINDINGS: No suspicious masses, architectural distortions or suspiciously clustered microcalcifications are identified. There is no evidence of skin thickening or nipple retraction. There are no significant changes when compared with prior studies. No mammographic evidence of malignancy. Markings on images: BB's = Nipples; skin lesions [employer] = Palpable Line = Scar 2D digital mammography and tomosynthesis imaging were performed and reviewed with CAD. ASSESSMENT: Category 1 Negative Mammography Report RECOMMENDATION: Routine screening mammogram of the left breast in 1 year. . Report Dictated on Final Signed Date and Time: 12/08/2021 8:09 am Signed by: MD JANE, FADI Bhtati [facility] US RETROPERITONEAL LIMITEDon 09-28-2021 Patient Name: ABDIFATAH MACARIO Ultrasound ACCESSION EXAM DATE/TIME PROCEDURE ORDERING PROVIDER [id number] 09/28/2021 14:48 EDT US Retroperitoneal MD ROSELYN, DANIAL CASEY CPT code 96242 Reason For Exam (US Retroperitoneal Limited) persistent edema, proteinuria Report COMPLETE BILATERAL RENAL SONOGRAM History: Proteinuria, edema Findings: Sonogram directed to the kidneys performed. The right kidney measures 10.4 x 6 x 5.7 cm. The left kidney measures 10.6 x 5 x 5.1 cm. Both kidneys show unremarkable echotexture without hydronephrosis. There is no appreciable renal calculi (CT more sensitive). Additional sonogram images of the urinary bladder were obtained. The urinary bladder is mildly distended and appears unremarkable as shown. IMPRESSION: Unremarkable exam. Report Dictated on --- Final --- Dictating Physician: MD OKEEFE AHMAD Signed Date and Time: 09/28/2021 2:54 pm Signed by: MD OKEEFE AHMAD Transcribed Date and Time: 09/28/2021 2:55 MANJINDER GORDILLO RAD Trini Okeefe MD - 09/28/2021 Patient Name: ABDIFATAH MACARIO Ultrasound ACCESSION EXAM DATE/TIME PROCEDURE ORDERING PROVIDER [id number] 09/28/2021 14:48 EDT US Retroperitoneal MD ROSELYN, [facility] CPT code 64604 Reason For Exam (US Retroperitoneal Limited) persistent edema, proteinuria Report COMPLETE BILATERAL RENAL SONOGRAM History: Proteinuria, edema Findings: Sonogram directed to the kidneys performed. The right kidney measures 10.4 x 6 x 5.7 cm. The left kidney measures 10.6 x 5 x 5.1 cm. Both kidneys show unremarkable echotexture without hydronephrosis. There is no appreciable renal calculi (CT more sensitive). Additional sonogram images of the urinary bladder were obtained. The urinary bladder is mildly distended and appears unremarkable as shown. IMPRESSION: Unremarkable exam. Report Dictated on --- Final --- Dictating Physician: MD OKEEFE AHMAD Signed Date and Time: 09/28/2021 2:54 pm Signed by: MD OKEEFE AHMAD Transcribed Date and Time: 09/28/2021 2:55 [facility] Work Phone: Radiology Study observation (narrative) [facility] Work Phone: US RETROPERITONEAL LIMITEDOr dered By: Trini Okeefe on 09-28-2021 [facility] Work Phone: US Retroperitoneal Limitedon 09-28-2021 US Retroperitoneal Limited Patient Name: ABDIFATAH MACARIO Ultrasound ACCESSION EXAM DATE/TIME PROCEDURE ORDERING PROVIDER [id number] 09/28/2021 14:48 EDT US Retroperitoneal MD ROSELYN, DANIAL CASEY CPT code 50609 Reason For Exam (US Retroperitoneal Limited) persistent edema, proteinuria Report COMPLETE BILATERAL RENAL SONOGRAM History: Proteinuria, edema Findings: Sonogram directed to the kidneys performed. The right kidney measures 10.4 x 6 x 5.7 cm. The left kidney measures 10.6 x 5 x 5.1 cm. Both kidneys show unremarkable echotexture without hydronephrosis. There is no appreciable renal calculi (CT more sensitive). Additional sonogram images of the urinary bladder were obtained. The urinary bladder is mildly distended and appears unremarkable as shown. IMPRESSION: Unremarkable exam. Report Dictated on Final Dictating Physician: MD OKEEFE AHMAD Signed Date and Time: 09/28/2021 2:54 pm Signed by: MD OKEEFE AHMAD Transcribed Date and Time: 09/28/2021 2:55 Normal [facility] ECHO Complete 2D W Doppler W [place] 09-12-2021 TRANSTHORACIC ECHOCARDIOGRAM PATIENT: Abdifatah Macario STUDY DATE: 09/12/2021 : 1950 AGE: 70 HT/WT: 172.7 cm (68 102.1 kg in) (224.5 lb) GENDER: M BP: 127 / 78 LOCATION: [place] [address] [address] STATUS: *ORDERING PHYSICIAN: * Danial Dempsey *RN: * Gay Ch, JAVIER *READING PHYSICIAN: * Eladio, *IMAGING ENGINEER: * Afia Eagle RDCS, MD Denis AE, RVT, VT ----- INDICATIONS: Dyspnea on exertion (R06.00). ----- CONCLUSIONS SUMMARY: 1. Left ventricle: Systolic function is normal by the biplane method of disks. The estimated ejection fraction is 75%. There are no regional wall motion abnormalities. 2. Right ventricle: The cavity size is normal. Right ventricular systolic pressure is at the upper limits of normal. The estimated peak pressure is 32 mm Hg. 3. Inferior vena cava: The vessel is normal in size. The IVC collapses by greater than 50% with inspiration, consistent with normal central venous pressure. 4. No significant valvular abnormalities. ----- STUDY DATA: Complete transthoracic echocardiogram. Procedure: Image quality was poor. The study was technically limited due to poor acoustic window availability and respiratory interference. Intravenous imaging enhancement (Definity) was administered to opacify the chamber. Definity lot #: [id number]. M-mode, complete 2D, complete spectral Doppler, and color flow Doppler images were acquired and archived for permanent storage and are available for subsequent review. Study status: Routine. Patient status: Outpatient. ECG RHYTHM: NSR ----- FINDINGS LEFT VENTRICLE: The cavity size is normal. Wall thickness is normal. Systolic function is normal by the biplane method of disks. The estimated ejection fraction is 75%. There are no regional wall motion abnormalities. Left ventricular diastolic function parameters are normal. RIGHT VENTRICLE: The cavity size is normal. Systolic function is normal by visual assessment. Right ventricular systolic pressure is at the upper limits of normal. The estimated peak pressure is 32 mm Hg. VENTRICULAR SEPTUM: There is no evidence of a ventricular septal defect. LEFT ATRIUM: The atrium is mildly dilated. RIGHT ATRIUM: The atrium is normal in size. ATRIAL SEPTUM: The interatrial septum is normal. Doppler shows no shunt. MITRAL VALVE: Structurally normal valve. Doppler: Transvalvular velocity is within the normal range. There is no evidence for stenosis. There is no regurgitation. AORTIC VALVE: Structurally normal valve. Trileaflet. Doppler: Transvalvular velocity is within the normal range. There is no stenosis. There is trivial, less than 1+ regurgitation. TRICUSPID VALVE: Not well visualized. Structurally normal valve. Doppler: Transvalvular velocity is within the normal range. There is no evidence for stenosis. There is trivial, less than 1+ regurgitation. PULMONIC VALVE: Structurally normal valve. Doppler: Transvalvular velocity is within the normal range. There is trivial, less than 1+ regurgitation. AORTA: Aortic root: The aortic root is normal in size. Ascending aorta: The ascending aorta is normal in size. PERICARDIUM: There is no pericardial effusion. SYSTEMIC VEINS: Inferior vena cava: The vessel is normal in size. The IVC collapses by greater than 50% with inspiration, consistent with normal central venous pressure. ----- Measurements Value Reference Aortic root ID, ED (sinus) 3.4 cm <4.3 Value Reference Ascending aorta ID, A-P, S 3.3 cm Ascending aorta ID/bsa, A-P, S 1.5 cm/m^2 Value Reference Aortic arch ID 3.0 cm Aortic arch ID/bsa 1.3 cm/m^2 IVC Value Reference ID 1.9 cm Left ventricle Value Reference LV ID, ED 4.8 cm 4.2 - 5.8 LV ID, ES 2.6 cm 2.5 - 4.0 LV ID/bsa, ED (L) 2.1 cm/m^2 2.2 - 3.0 LV ID/bsa, ES (L) 1.2 cm/m^2 1.3 - 2.1 LV PW thickness, ED 1.0 cm 0.6 (more content not included)... [facility] Denis Hendricks MD - 09/12/2021 TRANSTHORACIC ECHOCARDIOGRAM PATIENT: Abdifatah Macario STUDY DATE: 09/12/2021 : 1950 AGE: 70 HT/WT: 172.7 cm (68 102.1 kg in) (224.5 lb) GENDER: M BP: 127 / 78 LOCATION: [place] [address] PATIENT Outpatient [facility] STATUS: *ORDERING PHYSICIAN: * Danial Dempsey *RN: * Gay Ch RN *READING PHYSICIAN: * Eladio, *IMAGING ENGINEER: * Denis Branham RDCS, MD AE, RVT, VT ----- INDICATIONS: Dyspnea on exertion (R06.00). ----- CONCLUSIONS SUMMARY: 1. Left ventricle: Systolic function is normal by the biplane method of disks. The estimated ejection fraction is 75%. There are no regional wall motion abnormalities. 2. Right ventricle: The cavity size is normal. Right ventricular systolic pressure is at the upper limits of normal. The estimated peak pressure is 32 mm Hg. 3. Inferior vena cava: The vessel is normal in size. The IVC collapses by greater than 50% with inspiration, consistent with normal central venous pressure. 4. No significant valvular abnormalities. ----- STUDY DATA: Complete transthoracic echocardiogram. Procedure: Image quality was poor. The study was technically limited due to poor acoustic window availability and respiratory interference. Intravenous imaging enhancement (Definity) was administered to opacify the chamber. Definity lot #: [id number]. M-mode, complete 2D, complete spectral Doppler, and color flow Doppler images were acquired and archived for permanent storage and are available for subsequent review. Study status: Routine. Patient status: Outpatient. ECG RHYTHM: NSR ----- FINDINGS LEFT VENTRICLE: The cavity size is normal. Wall thickness is normal. Systolic function is normal by the biplane method of disks. The estimated ejection fraction is 75%. There are no regional wall motion abnormalities. Left ventricular diastolic function parameters are normal. RIGHT VENTRICLE: The cavity size is normal. Systolic function is normal by visual assessment. Right ventricular systolic pressure is at the upper limits of normal. The estimated peak pressure is 32 mm Hg. VENTRICULAR SEPTUM: There is no evidence of a ventricular septal defect. LEFT ATRIUM: The atrium is mildly dilated. RIGHT ATRIUM: The atrium is normal in size. ATRIAL SEPTUM: The interatrial septum is normal. Doppler shows no shunt. MITRAL VALVE: Structurally normal valve. Doppler: Transvalvular velocity is within the normal range. There is no evidence for stenosis. There is no regurgitation. AORTIC VALVE: Structurally normal valve. Trileaflet. Doppler: Transvalvular velocity is within the normal range. There is no stenosis. There is trivial, less than 1+ regurgitation. TRICUSPID VALVE: Not well visualized. Structurally normal valve. Doppler: Transvalvular velocity is within the normal range. There is no evidence for stenosis. There is trivial, less than 1+ regurgitation. PULMONIC VALVE: Structurally normal valve. Doppler: Transvalvular velocity is within the normal range. There is trivial, less than 1+ regurgitation. AORTA: Aortic root: The aortic root is normal in size. Ascending aorta: The ascending aorta is normal in size. PERICARDIUM: There is no pericardial effusion. SYSTEMIC VEINS: Inferior vena cava: The vessel is normal in size. The IVC collapses by greater than 50% with inspiration, consistent with normal central venous pressure. ----- Measurements Value Reference Aortic root ID, ED (sinus) 3.4 cm <4.3 Value Reference Ascending aorta ID, A-P, S 3.3 cm Ascending aorta ID/bsa, A-P, S 1.5 cm/m^2 Value Reference Aortic arch ID 3.0 cm Aortic arch ID/bsa 1.3 cm/m^2 IVC Value Reference ID 1.9 cm Left ventricle Value Reference LV ID, ED 4.8 cm 4.2 - 5.8 LV ID, ES 2.6 cm 2.5 - 4.0 LV ID/bsa, ED (L) 2.1 cm/m^2 2.2 - 3.0 LV ID/bsa, ES (L) 1.2 cm/m^2 1.3 - 2.1 LV PW thickness, ED 1.0 cm 0.6 - 1.0 LV PW/LV ID ratio, ED 0.2 LV wall mass 165 g 96 - 200 LV wall mass/bsa 74 g/m^2 50 - 102 Stroke volume/bsa, 1-p A2C 35.6 ml/m^2 LV end-diastolic volume, 1-p A4C 123 ml 69 - 185 LV end-systolic volume, 1-p A4C 31 ml 22 - 78 LV end-diastolic volume, 2-p 110 ml 62 - 150 LV end-systolic volume, 2-p 28 ml 21 - 61 LV ejection fraction, 2-p (H) 75 % 52 - 72 LV E/e', lateral 4.8 LV E/e', medial 7.5 LV E/e', average 5.8 Ventricu (more content not included)... [facility] Work Phone: ECHO Complete 2D W Doppler W ColorOrdered By: Denis Hendricks on 09-12-2021 [facility] Work Phone: Echo Complete w/wo Contrasto n 09-12-2021 Echo Complete w/wo Contrast Patient Name: ABDIFATAH MACARIO Ultrasound ACCESSION EXAM DATE/TIME PROCEDURE ORDERING PROVIDER [id number] 09/12/2021 15:25 EDT Echo Complete w/wo MD ROSELYN, DANIAL CASEY Reason For Exam (Echo Complete w/wo Contrast) Dyspnea on exertion and increasing edema Report TRANSTHORACIC ECHOCARDIOGRAM PATIENT: Abdifatah Macario STUDY DATE: 09/12/2021 : 1950 AGE: 70 HT/WT: 172.7 cm (68 102.1 kg in) (224.5 lb) GENDER: M BP: 127 / 78 LOCATION: [place] PATIENT Outpatient [address] STATUS: *ORDERING PHYSICIAN: * Danial Dempsey *RN: * Gay Ch, JAVIER *READING PHYSICIAN: * Eladio, *IMAGING ENGINEER: * Denis Branham RDCS, MD AE, RVT, VT ----- INDICATIONS: Dyspnea on exertion (R06.00). ----- CONCLUSIONS SUMMARY: 1. Left ventricle: Systolic function is normal by the biplane method of disks. The estimated ejection fraction is 75%. There are no regional wall motion abnormalities. 2. Right ventricle: The cavity size is normal. Right ventricular systolic pressure is at the upper limits of normal. The estimated peak pressure is 32 mm Hg. 3. Inferior vena cava: The vessel is normal in size. The IVC collapses by greater than 50% with inspiration, consistent with normal central venous pressure. 4. No significant valvular abnormalities. ----- STUDY DATA: Complete transthoracic echocardiogram. Procedure: Image quality was poor. The study was technically limited due to poor acoustic window availability and respiratory interference. Intravenous imaging enhancement (Definity) was administered to opacify the chamber. Definity lot #: [id number]. M-mode, complete 2D, complete spectral Doppler, and color flow Doppler images were acquired and archived for permanent storage and are available for subsequent review. Study status: Routine. Patient status: Outpatient. ECG RHYTHM: NSR ----- Ultrasound Report FINDINGS LEFT VENTRICLE: The cavity size is normal. Wall thickness is normal. Systolic function is normal by the biplane method of disks. The estimated ejection fraction is 75%. There are no regional wall motion abnormalities. Left ventricular diastolic function parameters are normal. RIGHT VENTRICLE: The cavity size is normal. Systolic function is normal by visual assessment. Right ventricular systolic pressure is at the upper limits of normal. The estimated peak pressure is 32 mm Hg. VENTRICULAR SEPTUM: There is no evidence of a ventricular septal defect. LEFT ATRIUM: The atrium is mildly dilated. RIGHT ATRIUM: The atrium is normal in size. ATRIAL SEPTUM: The interatrial septum is normal. Doppler shows no shunt. MITRAL VALVE: Structurally normal valve. Doppler: Transvalvular velocity is within the normal range. There is no evidence for stenosis. There is no regurgitation. AORTIC VALVE: Structurally normal valve. Trileaflet. Doppler: Transvalvular velocity is within the normal range. There is no stenosis. There is trivial, less than 1+ regurgitation. TRICUSPID VALVE: Not well visualized. Structurally normal valve. Doppler: Transvalvular velocity is within the normal range. There is no evidence for stenosis. There is trivial, less than 1+ regurgitation. PULMONIC VALVE: Structurally normal valve. Doppler: Transvalvular velocity is within the normal range. There is trivial, less than 1+ regurgitation. AORTA: Aortic root: The aortic root is normal in size. Ascending aorta: The ascending aorta is normal in size. PERICARDIUM: There is no pericardial effusion. SYSTEMIC VEINS: Inferior vena cava: The vessel is normal in size. The IVC collapses by greater than 50% with inspiration, consistent with normal central venous pressure. ----- Measurements Value Reference Aortic root ID, ED (sinus) 3.4 cm <4.3 Value Reference Ascending aorta ID, A-P, S 3.3 cm Ascending aorta ID/bsa, A-P, S 1.5 cm/m^2 Value Reference Aortic arch ID 3.0 cm Aortic arch ID/bsa 1.3 cm/m^2 IVC Value Reference ID 1.9 cm Left ventricle Value Reference LV ID, ED 4.8 cm 4.2 - 5.8 LV ID, ES 2.6 cm 2.5 - 4.0 LV ID/bsa, ED (L) 2.1 cm/m^2 2.2 - 3.0 LV ID/bsa, ES (L) 1.2 cm/m^2 1.3 - 2.1 LV PW thickness, ED 1.0 cm 0.6 - 1.0 LV PW/LV ID ratio, ED 0.2 LV wall mass 165 g 96 - 200 LV wall mass/bsa 74 g/m^2 50 - 102 Stroke volume/bsa, 1-p A2C 35.6 ml/m^2 Ultrasound Report LV end-diastolic volume, 1-p A4C 123 ml 69 - 185 LV end-systolic volume (more content not included)... Normal [facility] General/Metabolic - [facility] aye 06-23-2021 General/Metabolic - Established Patient Discussion/Summary - You will receive a copy of your genetic testing results with a family letter in the mail. Below is a summary of what we discussed at your appointment. - Mr. MACARIO is a 70 year female with a personal history of breast cancer and a family history of breast cancer. - Mr. MACARIO was initially seen in the [facility] on 05/19/21 for counseling and coordination of testing. - Based on his personal history and family history, the 47 gene Common Hereditary Cancers + RNA Panel from [employer] was recommended and ordered. - I called him to review the results of this testing, and our discussion is summarized below. - Mr. MACARIO's results were NEGATIVE, meaning that no disease causing mutations were identified. - A genetic cause for his history of cancer has not been identified. - One reason Mr. MACARIO underwent genetic testing was to better understand her risk to develop a second, primary cancer to help determine if further screening or surgery is indicated. - Because his results were negative, Mr. MACARIO does not have an identifiable genetic risk factor that places him at an increased risk to develop a second primary cancer. - It is important for you to follow all other age-related cancer screenings per your primary care providers' recommendations, such as PSA checks, colonoscopies, etc. - Your family history may still suggest hereditary breast cancer. This could be due to a mutation in a gene which is not currently detectable, or due to a mutation in a different gene that is yet to be associated with hereditary breast cancer. More testing in your family members may help to determine this, particularly those with a history of cancer. - Although his results were negative, Mr. MACARIO's female relatives are considered to have an increased risk to develop breast cancer over the general population, based on the family history alone. - They should speak to their healthcare providers about their breast cancer screening protocols, as they may be a candidate for annual breast MRIs, in addition to an annual mammogram and clinic breast exam. - Breast cancer screening should also begin 10 years younger than the youngest diagnosis in the family, or by age 40, whichever comes first. - This would be 30 for Mr. Macario's family. - Our understanding of genetic contribution to cancer diagnoses is always evolving, so there may be additional testing recommended in the future. He can contact us in 2-3 years to determine if there have been any changes since our discussion today. Samira Javier MS,[facility] [place] Genetic Counselor [place] [facility] [phone]. Chief Complaint Patient seen for discussion of genetic test results. History of Present IllnessPlease see previous genetics note. Time Time Stamp_UH: Time spent with patient: 7 minutes of which greater than 50 percent was spent counseling and or coordinating care. Signatures Electronically signed by : TREY Gillespie; Jun 23 2021 12:11PM EST (Author) Electronically signed by : Raine Tate MD; Jun 24 2021 11:30AM EST (Review) Normal [facility] Office Visit (Genetics)on Follow-up visit Patient Discussion/Summary Mr. MACARIO is a 70 year old male with a personal and family history of male breast cancer. Based on his personal and family history of male breast cancer as well as breast cancer diagnosed under 45 and having 3+ close relatives affected, Mr. MACARIO meets NCCN criteria for testing of the BRCA1 and BRCA2 genes. He is interested in testing, which is recommended, and was ordered today via the 45-gene Common Hereditary Cancers panel with RNA analysis from [employer]. Our discussion is summarized below. We reviewed genes and chromosomes, inherited forms of breast cancer, and the BRCA1 and BRCA2 genes causing HBOC. We discussed that most cancers are not due to an inherited genetic susceptibility. However, in about 5-10% of families, there is an inherited genetic mutation that can make a person more susceptible to developing certain forms of cancer. Within these families, we often see multiple family members with cancer, occurring in multiple generations. In addition, earlier onset and bilateral cancers are suggestive of an inherited form of cancer. Finally, there is a clustering of certain types of cancer in these families, such as breast and ovarian cancer. We discussed the BRCA1 and BRCA2 genes, which are two genes that have been linked to male breast cancer, prostate cancer, pancreatic cancer, and/or melanoma. Changes in these genes (sometimes referred to as mutations) are inherited in a dominant pattern and confer up to a 7% lifetime risk of male breast cancer compared to the lifetime risk of <1%. Male carriers also have a higher risk for prostate cancer (20-25% lifetime risk versus 12-13% in the general population) along with increased risks for pancreatic cancer and prostate cancers. We also discussed that BRCA1 and BRCA2 have different risks for women. In women, these two genes have been linked to early-onset breast and/or ovarian cancer. BRCA1 or BRCA2 mutations confer up to an 87% lifetime risk for breast cancer. This is elevated compared to the general population risk of 13%. In addition, BRCA1 and BRCA2 mutation carriers have up to a 45% lifetime risk for ovarian cancer, which is elevated over the 2% general population risk. Mutation carriers who have already been diagnosed with cancer have an increased risk to develop a second, contralateral breast cancer. Gene mutations in BRCA1 and BRCA2 are inherited in an autosomal dominant fashion. This means that if an individual has a change in either of these genes, their siblings and children have a 50% chance of also having that gene change and a 50% chance of not having the gene change. We discussed that there are multiple genes associated with increased breast cancer risk. Some genes, like the BRCA1 and BRCA2 genes, are considered highly penetrant breast cancer genes, meaning a mutation in the gene confers a high risk of breast cancer. Additionally, there are other intermediate (moderate risk) breast cancer genes. For some of the moderate risk genes, there is often limited information regarding the degree to which a mutation in the gene affects risk of different types of cancers. Additionally, for some of these moderate risk genes, the appropriate management for individuals who have a mutation in one of these genes is not always clear. Our knowledge about the cancer risks associated with mutations in these moderate risk genes is always growing, and we will likely be able to provide more comprehensive information in the future. Mr. MACARIO was counseled about hereditary cancer susceptibility including cancer risks, options for increased screening and/or risk reduction, genetic testing, and the implications for other family members. We discussed performing genetic testing in the context of a multi-gene panel test that looks at the BRCA1 and BRCA2, as well as moderate penetrant genes. He is interested in this approach, which is recommended and was ordered today via the 45-gene Common Hereditary Cancers panel with RNA analysis from [facility]. Results are typically available within 2-3 weeks, and Mr. MACARIO will return to the [facility] to discuss his testing results. At that time, we will make recommendations for both Mr. MACARIO and his family members in terms of cancer screening and/or cancer risk reduction options. PLAN: 1. Mr. MACARIO elected to undergo genetic testing via a panel test that analyzes 45 genes associated with breast, prostate and other cancer risks. Consent for testing was signed and blood was drawn. The sample was sent to [facility] for analysis. Results are typically available in 2-3 weeks. 2. Mr. MACARIO will return to the [facility] in approximately 2-3 weeks to discuss his test results. 3. We remain available to Mr. MACARIO or his family members at [phone] if any questions arise regarding information discussed at today's visit. Samira Javier MS, [facility] [place] Genetic Counselor [facility] [phone]. Chief Complaint Patient seen for genetic ris (more content not included)... Normal [facility] XR Knee AP and Lateral and M erchantsOrdered By: [facility] Provider on 01-27-2021 Interpretation and review of laboratory results Abnormal [facility] Radiology Result ACTIONABLE Abnormal [facility] Comment on above: This report contains an incidental or actionable finding. This is a new finding that is separate from the reason your provider ordered the imaging test. Because of this incidental or actionable finding, you may need another imaging test to evaluate it. Please contact your provider for the next steps. [facility] XR Knee AP and Lateral and M erchantson 01-27-2021 IMPRESSION: Left total knee arthroplasty without complication. Suspect increasing lucency medially along the right knee arthroplasty tibial component. Recommend dedicated right knee radiographs for further assessment. ACTIONABLE RESULT: FOLLOW-UP Acuity: Actionable Findings: Musculoskeletal/Rheuma tologic System Routing Code: MSK_1 Recommendation: Unlisted Recommendation (see report) Time Frame: At the discretion of the clinical team. COMMUNICATION: Results will be communicated with the ordering provider via VideoNot.es staff message or phone message by Imaging Support Services within 2 business days of report finalization. Algorithms for management of incidental imaging findings can be found on the [facility] Intranet Sharepoint site at: [email or web address]/Managing%20Incidenta l%20Findi ngs%20at%20Imaging/For ms/AllItems.aspx Wool Batting Worker: SORAIDA Transcribe Date/Time: Jan 27 2021 11:17A Dictated by : SESAR DANIELS DO This examination was interpreted and the report reviewed and electronically signed by: ALICIA GALE MD on Jan 27 2021 2:15PM [facility] DIVISION OF RADIOLOGY * * *Final Report* * * DATE OF EXAM: Jan 27 2021 10:47AM CCX 5208 - XR KNEE 3V AP/LAT/MERCHANT LT / PROCEDURE REASON: Primary osteoarthritis of left knee * * * * Physician Interpretation * * * * EXAMINATION: XR KNEE 3V AP/LAT/MERCHANT LT HISTORY: LT POST OP KNEE FOLLOW UP, Primary osteoarthritis of left knee TECHNIQUE: XR KNEE 3V AP/LAT/MERCHANT LT Laterality: LEFT Number of different views (projections): 3 M: XB_1 COMPARISON: Knee radiographs 10/13/2020, 10/16/2019 RESULT: Left total knee arthroplasty with patellar resurfacing. No periprosthetic fracture or lucency. Mild anterior knee soft tissue swelling. Trace suprapatellar joint fluid. Vascular calcifications. Incompletely assessed right total knee arthroplasty with patellar resurfacing and suspected increasing lucency along the tibial component medially. DIVISION OF RADIOLOGY Provider, [facility] - 01/27/2021 * * *Final Report* * * DATE OF EXAM: Jan 27 2021 10:47AM CCX 5208 - XR KNEE 3V AP/LAT/MERCHANT LT / PROCEDURE REASON: Primary osteoarthritis of left knee * * * * Physician Interpretation * * * * EXAMINATION: XR KNEE 3V AP/LAT/MERCHANT LT HISTORY: LT POST OP KNEE FOLLOW UP, Primary osteoarthritis of left knee TECHNIQUE: XR KNEE 3V AP/LAT/MERCHANT LT Laterality: LEFT Number of different views (projections): 3 M: XB_1 COMPARISON: Knee radiographs 10/13/2020, 10/16/2019 RESULT: Left total knee arthroplasty with patellar resurfacing. No periprosthetic fracture or lucency. Mild anterior knee soft tissue swelling. Trace suprapatellar joint fluid. Vascular calcifications. Incompletely assessed right total knee arthroplasty with patellar resurfacing and suspected increasing lucency along the tibial component medially. IMPRESSION IMPRESSION: Left total knee arthroplasty without complication. Suspect increasing lucency medially along the right knee arthroplasty tibial component. Recommend dedicated right knee radiographs for further assessment. ACTIONABLE RESULT: FOLLOW-UP Acuity: Actionable Findings: Musculoskeletal/Rheuma tologic System Routing Code: MSK_1 Recommendation: Unlisted Recommendation (see report) Time Frame: At the discretion of the clinical team. COMMUNICATION: Results will be communicated with the ordering provider via VideoNot.es staff message or phone message by Imaging Support Services within 2 business days of report finalization. Algorithms for management of incidental imaging findings can be found on the [facility] Intranet Sharepoint site at: [email or web address] [email or web address]/Managing%20Incidenta l%20Findi ngs%20at%20Imaging/For ms/AllItems.aspx Wool Batting Worker: SORAIDA Transcribe Date/Time: Jan 27 2021 11:17A Dictated by : SESAR DANIELS DO This examination was interpreted and the report reviewed and electronically signed by: ALICIA GALE MD on Jan 27 2021 2:15PM EST [facility] Radiology Study observation (narrative) [facility] HEALTH 12-28-2020 ALLIED HEALTH HNO ID: [id number] Author: Chaplain Perla Student Service: Spiritual Care Author Type: Student Type: Allied Health Filed: 12/28/2020 1:04 PM Note Text: SPIRITUAL CARE PROGRESS NOTE SERVICE DATE: 12/28/2020 SERVICE TIME: 1230 Attempted to visit with pt but was with another service. To contact the Spiritual Care Department: Please call [phone]. SIGNATURE: Chaplain Perla Student PATIENT NAME: Abdifatah Macario DATE: December 28, 2020 TIME: 1:03 PM PAGER/CONTACT #: [phone] [facility] Basic Metabolic Panlon 12-28 Anion gap [Moles/Vol] 11 mmol/L Normal 9-18 [facility] Comment on above: Performed By: #### C BC, BMP ####[place] [phone] Calcium [Mass/Vol] 8.3 mg/dL Low 8.5-10.[address] [facility] Comment on above: Performed By: #### C BC, BMP ####[place] [id number] Chloride [Moles/Vol] 103 mmol/L Normal 97-105 [facility] Comment on above: Performed By: #### C BC, BMP ####[place] [phone] CO2 [Moles/Vol] 23 mmol/L Normal 22-30 [facility] Comment on above: Performed By: #### C BC, BMP ####[place] [id number] [place] [phone] Creatinine [Mass/Vol] 0.90 mg/dL Normal 0.73-1.22 [facility] Comment on above: Performed By: #### C BC, BMP ####[place] [address] [place] [id number] eGFR- Amer. >60 Normal >[address] [facility] Comment on above: Performed By: #### C BC, BMP ####[address] eGFR-All Other Races >60 Normal >60 [facility] Comment on above: Result Comment: eGFR (Estimated GFR) Units of measure: mL/min/1.73 meters squared eGFR is derived from the reexpressed MDRD Study equation using the following parameters: serum creatinine, age, gender and race. The creatinine assay has been calibrated to be traceable to IDNM. An eGFR <60 mL/min/1.73m2 for >3 months is consistent with chronic kidney disease. Refer to KDOQI guidelines for clinical interpretation. In patients with unstable renal function, e.g. those with acute kidney injury, the eGFR may not accurately reflect actual GFR. Performed By: #### C BRUNILDA, BMP ####[address] Glucose [Mass/Vol] 147 mg/dL High 74-[address] [facility] Comment on above: Performed By: #### C BRUNILDA, BMP ####[address] Potassium [Moles/Vol] 4.3 mmol/L Normal 3.7-5.1 [facility] Comment on above: Performed By: #### C BRUNILDA, BMP ####[address] Sodium [Moles/Vol] 137 mmol/L Normal 136-[address] [facility] Comment on above: Performed By: #### C BRUNILDA, BMP ####[address] Urea nitrogen [Mass/Vol] 16 mg/dL Normal 9-24 [facility] Comment on above: Performed By: #### C BRUNILDA, BMP ####[place] [phone] CASE MANAGEMon 12-28-2020 CASE MANAGEM HNO ID: [id number] Author: Bindu Almaguer RN Service: ? Author Type: Registered Nurse Type: Care Mgt Progress Note Filed: 12/28/2020 11:46 AM Note Text: CARE MANAGEMENT DISCHARGE NOTE SERVICE DATE: 12/28/2020 SERVICE TIME: 11:45 am LOS: 0 days Admission Date: 12/27/2020 DISCHARGE ARRANGEMENT (list agency and phone number) Discharge Arrangement: Home with Relative - spouse Provider Name: N/A Phone: N/A CAREGIVER ASSESSMENT: Caregiver is ready, willing and able to meet the patient's needs as recommended by the inter-professional team:: No Caregiver needed (states he is set up for outpatient therapy as he did in the past) Does the patient have an acute stroke diagnosis, or has the patient had a stroke during this admission?: No HANDOFF COMMUNICATION: Handoff to: (see summary of care) TRANSPORTATION ARRANGEMENTS: Transportation Arrangements: Car ADDITIONAL CONTACT RESOURCES: Future Appointments Date Time Provider Department Center 01/27/2021 10:25 AM [facility] IN[facility] RGIND [facility] Indp 01/27/2021 11:00 AM MD MISSAEL Dykes [facility] 03/23/2021 2:10 PM [facility] Needs Prior to Discharge: Ready for Discharge Has an appointment this [facility] that he made himself. SIGNATURE: Bindu Almaguer RN PATIENT NAME: Abdifatah Macario DATE: December 28, 2020 TIME: 11:45 AM PAGER/CONTACT #: [phone] [facility] H[facility] ID: [id number] Author: Bindu Almaguer RN Service: ? Author Type: Registered Nurse Type: Care Mgt Initial Assessment Filed: 12/28/2020 11:43 AM Note Text: CARE MANAGEMENT PROGRESS NOTE SERVICE DATE: 12/28/2020 SERVICE TIME: 11:41 am LOS: 0 days - Procedure(s) (LRB): ARTHROPLASTY REPLACE JOINT TOTAL KNEE (Left) [place] of Choice Given: No Reason Not Given: No placements necessary Caregiver is ready, willing and able to meet the patient's needs as recommended by the inter-professional team:: No Caregiver needed (states he is set up for outpatient therapy as he did in the past) Does the patient have an acute stroke diagnosis, or has the patient had a stroke during this admission?: No Pre Hospital Mental Status Prior to this Illness what was the patient's Baseline Mental Status?: Alert AND Oriented Prior to this illness, has anyone described the patient having any of the following behaviors?: Not Applicable Relationship of the informant to the patient:: Self Needs Prior to Discharge: OT/PT Evaluation Current Advance Directive: None CM met with patient at the bedside, lives with his who can assist him at home. He has a std walker. States he has an outpatient therapy appointment this Thurs, ( went to outpatient therapy after his last surgery as well) No other skilled DC needs anticipated. CM Department will continue to follow. SIGNATURE: Bindu Almaguer RN PATIENT NAME: Abdifatah Macario DATE: December 28, 2020 TIME: 11:40 AM PAGER/CONTACT #: [phone] Normal [facility] CBCon 12-28-2020 Absolute nRBC <0.01 Normal <0.01 [facility] Comment on above: Performed By: #### C BC, BMP ####[place] [phone] Erythrocyte distribution width (RBC) [Ratio] 13.8 % Normal 11.5-15.0 [facility] Comment on above: Performed By: #### C BC, BMP ####[place] [id number] Hematocrit (Bld) [Volume fraction] 32.9 % Low 39.0-51.0 [facility] Comment on above: Performed By: #### C BC, BMP ####[address] Hemoglobin (Bld) [Mass/Vol] 10.7 g/dL Low 13.0-17.0 [facility] Comment on above: Performed By: #### C BC, BMP ####[facility] MCH 28.7 pG Normal 26.0-34.0 [facility] Comment on above: Performed By: #### C BC, BMP ####[address] MCHC (RBC) [Mass/Vol] 32.5 g/dL Normal 30.5-36.0 [facility] Comment on above: Performed By: #### C BC, BMP ####[address] MCV (RBC) [Entitic vol] 88.2 fL Normal 80.0-100.0 [facility] Comment on above: Performed By: #### C BC, BMP ####[address] Platelet mean volume (Bld) [Entitic vol] 10.0 fL Normal 9.0-12.7 [facility] Comment on above: Performed By: #### C BC, BMP ####[address] Platelets (Bld) [#/Vol] 272 10*3/uL Normal 150-400 [facility] Comment on above: Performed By: #### C BC, BMP ####[address] RBC (Bld) [#/Vol] 3.73 10*6/uL Low 4.20-6.00 [facility] Comment on above: Performed By: #### C BC, BMP ####[address] WBC (Bld) [#/Vol] 11.02 10*3/uL High 3.70-11.00 [facility] Comment on above: Performed By: #### C BC, BMP ####[address] CONSULTon 12-28-2020 CONSULT HNO ID: [id number] Author: Daryn Masters MD Service: General Internal Medicine Author Type: Physician Type: Consults Filed: 12/28/2020 12:58 PM Note Text: INTERNAL MEDICINE CONSULT HISTORY AND PHYSICAL PLEASE DO NOT REMOVE FROM THE CHART OR MODIFY PRINTED COPY Patient Name: Abdifatah Macario PRIMARY CARE PHYSICIAN: Danial Dempsey MD CONSULTING PHYSICIAN: Celina Garcia MD MD DATE of CONSULT: 12:55 PM HPI: This is a 70 year old male who presents with Left TKA. Pt seen post op. Pain /10 . No weakness . loclaised pain no weakness . No fever or chills ..no urgency or frequency . No fever or chills PAST MEDICAL HISTORY: PAST MEDICAL HISTORY Diagnosis Date - Anemia - Arthritis - Cheung's esophagus - BPH (benign prostatic hyperplasia) - Breast cancer (HCC) - Colon polyps - Diverticulosis - GERD (gastroesophageal reflux disease) - Hiatal hernia - HTN (hypertension) - Hypercholesteremia - Mixed hyperlipidemia - Skin cancer PAST SURGICAL HISTORY: PAST SURGICAL HISTORY Procedure Laterality Date - ADENOIDECTOMY HX - ANKLE SURGERY HX Left 07/1999 removal of hardware - COLONOSCOPY GEN ANES 09/18/2012 Diverticulosis - COLONOSCOPY GEN ANES 11/10/2020 - EGD 12/29/2015 Cheung's Esophagus, Hiatal Hernia, Mild chronic gastritis, mildly active - EGD 08/18/2020 - KNEE ARTHROSCOPY/SURGERY Right 2015 - MASTECTOMY HX Right 2009 - OPEN RX ANKLE DISLOCATN+FIXATN Left 1998 - REPAIR UMBILICAL HERNIA 2012 - REVISE MEDIAN N/CARPAL TUNNEL SURG Bilateral - TONSILLECTOMY HX - TOTAL KNEE REPLACEMENT Right 02/2020 FAMILY HISTORY: FAMILY HISTORY Problem Relation Age of Onset - Diabetes Mother - Kidney Disease Mother - Heart Mother CABG - Lymphoma Father - Breast Cancer Sister - Colon Cancer No Family History SOCIAL HISTORY: Social History Tobacco Use - Smoking status: Never Smoker - Smokeless tobacco: Never Used Vaping Use - Vaping Use: Never used Substance Use Topics - Alcohol use: Yes Comment: Not weekly - Drug use: Never ALLERGIES: ALLERGIES No Known Allergies PRIOR TO ADMISSION MEDICATIONS: Multivitamin capsule, Take 1 capsule by mouth once daily., Disp: , Rfl: , Past Week at Unknown time cyanocobalamin, vitamin B-12, (VITAMIN B-12 ORAL), Take by mouth., Disp: , Rfl: , 12/26/2020 at Unknown time sucralfate (CARAFATE) 1 gram tablet, TAKE 1 TABLET BY MOUTH FOUR TIMES DAILY., Disp: 120 tablet, Rfl: 3, 12/26/2020 at Unknown time tamsulosin (FLOMAX) 0.4 mg, Take 0.4 mg by mouth once daily., Disp: , Rfl: , 12/27/[address] (PROTONIX) 40 mg tablet, Take 40 mg by mouth once daily. , Disp: , Rfl: , 12/27/2020 at 0700 enalapril (VASOTEC) 5 mg tablet, Take 5 mg by mouth once daily. , Disp: , Rfl: , 12/27/2020 at 0700 amoxicillin (POLYMOX, AMOXIL) 500 mg capsule, Please take 4 pills by mouth 1 hour prior to dental appointment, Disp: 4 capsule, Rfl: 1, Unknown at Unknown time metaxalone (SKELAXIN) 800 mg tablet, Take 800 mg by mouth twice daily as needed for Pain., Disp: , Rfl: , Past Week at Unknown time furosemide (LASIX) 20 mg tablet, Take 20 mg by mouth twice daily., Disp: , Rfl: , 12/26/2020 at Unknown time rosuvastatin (CRESTOR) 20 mg tablet, Take 20 mg by mouth daily at bedtime., Disp: , Rfl: , 12/26/2020 at Unknown time potassium chloride SR (MICRO-K) 10 mEq CR capsule, Take 10 mEq by mouth twice daily., Disp: , Rfl: , 12/26/2020 at Unknown time Ipratropium [place] (ATROVENT) 0.03 % nasal spray, Use 2 Sprays in the nose as needed. , Disp: , Rfl: , 12/27/2020 at 0700 REVIEW OF SYSTEMS: GENERAL: No weight loss, malaise or fevers HEENT: Negative for frequent or significant headaches, No changes in hearing or vision, no nose bleeds or other nasal problems NECK: Negative for lumps, goiter, pain and significant neck swelling RESPIRATORY: Negative for cough, hemoptysis, wheezing, COPD, dyspnea or shortness of breath CARDIOVASCULAR: Negative for chest pain, leg swelling, hypertension, CHF or palpitations GI: No nausea, vomiting, or diarrhea SKIN: Negative for lesions, rash, and itching HEMATOLOGY/LYMPHOLOGY: Negative for prolonged bleeding, bruising easily or swollen nodes ENDOCRINE: Negative for cold or heat intolerance, polyuria, polydipsia and goiter NEURO: No history of headaches, syncope, paralysis, seizures or tremors All other reviewed and negative other than HPI. PHYSICAL EXAM: Blood pressure 124/60, pulse 71, temperature 36.6 ?C (97.9 ?F), temperature source Oral, resp. rate 16, height 172.7 cm (5' 8), weight 104.3 kg (230 lb), SpO2 95 %. General appearance: well appearing, alert, in no acute distress and well-hydrated, well nourished Skin: Skin color, texture, turgor normal, no suspicious rashes or lesions Head: normal Eyes: Anicteric sclera. Pupils are equally round and reactive to light. Extraocular movements are intact. Ears: external (more content not included)... Normal [facility] NURSING PROGon 12-28-2020 NURSING PROG HNO ID: [id number] Author: Lottie Melissa RN Service: ? Author Type: Advance Clinical Nurse Type: Nursing Progress Note Filed: 12/28/2020 3:06 PM Note Text: Nursing Progress Note Patient Name: Abdifatah Macario Patient Location: [address]/[place] [address] __ Daily Note: Patient viewed discharge instruction video for total joints . Education/Teaching points reviewed: Wound care for Silverlon/Mepilex AG - any drainage upon removal notify surgeon Showering Nutrition Use of ice, no heat No pillow under the knee Wearing protocol for barb hose/doreen wraps Swelling (abnormal vs. Normal) Exercises (flexion vs extension Level of activity patient should have daily to decrease post op complications Incentive spirometer use for home q1-2hrs while awake x1 week S/S of wound infection Fever greater than 101 and interventions S/S of DVT/PE and interventions Home physical therapy F/U care No submersion of knee or hip in tub or pool for 8-12 weeks Made aware they can activate metal detectors No driving while on narcotics and not until cleared by surgeon Any questions or concerns after D/C told to call surgeon's office If after hours, told to contact orthopedic resident bi solutions architect If any SOB/chest pain call 911 Antibiotic and DVT prophylaxis Constipation with use of the opoid medication Medication handouts outlining the most common side effects for the following classifications of drugs were reviewed . Bowel management/constipatio n Opiod therapy/pain management Anti inflammatory/pain and swelling Tylenol/analgesic Anticoagulants/DVT prophylaxis Patient validated understanding of the above instructions. This note was completed by: Lottie Melissa [facility] THERAPY NTon 12-28-2020 THERAPY NT HNO ID: [id number] Author: Ina Jeronimo, PT Service: Physical Therapy Author Type: Physical Therapist Type: Therapy (PT/OT/Speech/Resp) Filed: 12/28/2020 2:35 PM Note Text: Physical Therapy Evaluation SERVICE DATE: 12/28/2020 SERVICE TIME: 1338 to 1409 ROOM: [place] [address] Recommended Discharge Disposition: Outpatient Physical Therapy - Patient is cleared from PT standpoint for anticipated safe discharge home with Outpatient PT recommendations. Recommended Discharge Disposition Comments: Patient with adequate assistance available and home set up in order to anticipate safe discharge home. Patient would benefit from continued skilled PT services in order to address remaining limitaions in strength, endurance, functional mobility, ROM, and gait mechanics at an outpatient PT facility in order to maximize his level of independence at home s/p L TKA Anticipated Discharge Needs: Physical Assist at Home Physical Assist at Home for: Cleaning;Laundry;Meals ;Transportation;Shoppi ng Recommended Discharge Equipment: No equipment needs anticipated PT 6 Clicks Score: 23 Precautions/Activity Restrictions: Total Knee Replacement;Fall Risk Precaution/Activity Restriction Comments: mobilize order active Current Hospital Course: I just got my other knee done in March. Reason for Hospital Admission: s/p L TKA Relevant Past Medical History: HLD, HTN, BPH, hx of breast cancer treated with chemo and radiation, anemia, GERD, s/p R TKA, prediabetes, diverticulitis, hypercholesteremia, cheung's esophogus Response to Therapy Interventions: Good participation in activities,On-track to achieve discharge goals Continue skilled needs due to: Functional mobility/skill impairments Physical Therapy Problem List: Pain;Decreased Range Of Motion;Decreased Strength;Functional Mobility Impairment Treatment Interventions: Education;Joint Mobility;Strengthening ;Functional Mobility Training Plan for next visit: Bed mobility,Chair transfer training,Fall prevention,Gait training,Exercise instruction/handout,St airs training Home Environment Patient Lives With: Spouse Assistance Available: 24 Hour Entry To Home: Stairs;With Rail Number Of Stairs To Bed/Bath: Flight Stairs to Bed/Bath with: Unilateral Rail Tub/Shower Type: Tub shower Laundry: will complete Equipment Owned: Cane;Crutch(es);Wheele d Walker;Long Handled Shoe Horn;Shower Chair;Hand Held Shower;Grab Bars-Shower;Elevated Toilet Seat Prior Functional Level: Within Functional Limits Prior Functional Level Comments: Patient reports IND with ambulation wihtout AD, IND with all I/ADLs, assists with some IADLs, currently drives, is retired. Patient Report: I just got my other knee done in march. I'm ready for the pain and torture. CURRENT FUNCTIONAL STATUS: Most recent performance Current Functional Mobility Assist Level Additional Information Rolling Supine to Sit Stand By Assistance Sit to Supine Stand By Assistance Scooting Stand By Assistance Sit to Stand Stand By Assistance Stand to Sit Stand By Assistance Bed to Chair Toilet/Commode Gait Stand By Assistance;Contact Guard Assistance;Additional Information Gait Device: Wheeled Walker Gait Distance (feet): 250+ verbal cues to slow down and not santiago Stairs Contact Guard Assistance;Additional Information Stairs Device: Rail Number of Stairs: 6 step-to with proper sequencing; verbal cues to slow down to avoid potential fall Curb Step Car Transfer Blank morton indicate activity not attempted Gait Deviations Right Lower Extremity: Step length decreased Gait Deviations Left Lower Extremity: Stance time decreased;Weight bearing decreased General Deviations/Observation s: Antalgic gait;Difficulty changing direction/turning;Step length decreased Exercise Ankle Pumps (number of reps): 10 Quad Sets (number of reps): 10 Glut Sets (number of reps): 10 Heel Slides (number of reps): 10 SAQ (number of reps): 10 LAQ (number of reps): 10 SLR (number of reps): 10 Hip Abduction (number of reps): 10 Knee Flexion Stretch (number of reps): 10 Exercise: Instructed patient through exercises, educated patient on the benefits of early mobility to promote healing and prevent complications, and encouraged patient to remaing compliant with HEP; patient with no further questions at this time. Balance: Static Sitting;Dynamic Sitting;Static Standing;Dynamic Standing Static Sitting Balance: Normal Patient able to maintain steady balance without handhold support Dynamic Sitting Balance: Normal Patient accepts maximal challenge and can shift weight easily within full range in all directions Static Standing Balance: Normal Patient able to maintain steady balance without handhold support Dynamic Standing Balance: Good Patient accepts moderate challenge, able to maintain balance while picking up object off floor -M: 8: Walk 250 feet or more Learnin (more content not included)... [facility] THERAPY NT HNO ID: [id number] Author: Leesa Ortiz OT/Km Service: Occupational Therapy Author Type: Occupational Therapist Type: Therapy (PT/OT/Speech/Resp) Filed: 12/28/2020 2:14 PM Note Text: OCCUPATIONAL THERAPY MISSED VISIT SERVICE DATE: 12/28/2020 SERVICE TIME: 1410 to 1410 ROOM: [place] [address] Attempted Evaluation. Patient not seen due to Declined. Patient declined OT services reporting no concerns for discharge home. Per PT patient independent with ADLs and mobility. Discontinue OT services at this time due to no skilled needs. SIGNATURE: Leesa Ortiz OT/Km PATIENT NAME: Abdifatah Macario DATE: December 28, 2020 TIME: 2:11 PM [facility] ANES POSTPROC EVALon 021 ANES POSTPROC EVAL HNO ID: [id number] Author: Megha Tavarez MD Service: Anesthesiology Author Type: Anesthesiologist Type: Anesthesia Postprocedure Evaluation Filed: 12/27/2020 6:09 PM Note Text: POST ANESTHESIA EVALUATION NOTE : 1950 Procedure Summary Date: 12/27/20 Room / Location: [place] [address] / OR Anesthesia Start: 1456 Anesthesia Stop: 1803 Procedure: ARTHROPLASTY REPLACE JOINT TOTAL KNEE (Left Knee) Diagnosis: Primary osteoarthritis of left knee (Primary osteoarthritis of left knee [M17.12]) Surgeons: Celina Garcia MD Responsible Provider: Megha Tavarez MD Anesthesia Type: spinal ASA Status: 3 Anesthesia Type: spinal Last vitals Vitals Value Taken Time BP 109/69 12/27/20 1805 Temp 36.6 12/27/20 1808 Pulse 78 12/27/20 1808 Resp 16 12/27/20 1808 SpO2 96 % 12/27/20 1808 Vitals shown include unvalidated device data. Post Anesthesia Patient Status Patient Evaluation: PACU. PACU/ICU Patient Condition: stable. Anticipated Disposition: inpatient floor planned admission. Neurological Status: aware and responsive. Pulmonary Status: breathing comfortably on room air Airway Control: returned to baseline unsupported. Cardiovascular Status: stable. Pain Management: clinically adequate Postoperative Hydration: acceptable. Intraoperative Events: no significant anesthesia events Post Operative Nausea/Vomiting Status: no significant post operative nausea or vomiting Anesthetic Observations: Recommendation: continue current plan of care. Anesthesia Observations No Documentation SIGNATURE: Megha Tavarez MD PATIENT NAME: Abdifatah Macario DATE: December 27, 2020 TIME: 6:08 PM CSN: [id number] [facility] ANES PRE-OPon 12-27-2020 ANES PRE-OP HNO ID: [id number] Author: Megha Tavarez MD Service: Anesthesiology Author Type: Anesthesiologist Type: Anesthesia Preprocedure Evaluation Filed: 12/27/2020 1:53 PM Note Text: ANESTHESIOLOGY DAY OF SURGERY NOTE : 1950 Procedure(s) (LRB): ARTHROPLASTY REPLACE JOINT TOTAL KNEE (Left) Surgeon(s): Celina Garcia MD Estimated body mass index is 35.09 kg/m? as calculated from the following: Height as of 12/20/20: 172.7 cm (5' 8). Weight as of 12/20/20: 104.7 kg (230 lb 12.8 oz). Most recent hematocrit and potassium results: Hematocrit 40.9 12/20/2020 Potassium 3.8 12/20/2020 Relevant Problems CARDIO (+) Essential hypertension (+) Heart murmur I - PHYSICAL EVALUATION AIRWAY Patient intubated: No. Mallampati: III. TM distance: >3 FB. Neck ROM: full ROM without neurological symptoms. Mouth opening: adequate. DENTAL Dental findings: teeth intact. Additional comments: Bills present. II - ANESTHESIA PLAN ASA Score: 3 Anesthetic Plan: spinal NPO Status: adequate Monitoring plan: standard ASA. Postoperative analgesic plan: parenteral or oral opioids, multimodal analgesia and peripheral nerve block. Anesthetic Risks, Benefits, Alternatives, Personnel Discussed. Consent obtained from: patient.Patient / Surrogate agrees to blood products: Yes Significant changes in the patient condition since the History and Physical, not otherwise documented in primary service progress note: no. Vitals Value Taken Time BP 109/61 12/27/20 1304 Pulse 79 12/27/20 1304 Resp 20 12/27/20 1304 Temp 37.2 ?C (99 ?F) 12/27/20 1304 SpO2 97 % 12/27/20 1304 Facility-Administered Medications as of 12/27/2020 Medication Dose Route Frequency - lidocaine 10 mg/mL (1 %) 1-2 mg injection (XYLOCAINE) 0.1-0.2 mL INTRADERMAL PRN - lactated ringers iv infusion 5-30 mL/hr INTRAVENOUS CONTINUOUS - ceFAZolin iv piggyback 2 g in D5W (iso-osmotic) 100 mL (ANCEF) 2 g INTRAVENOUS ONCE - vancomycin 1.5 g in D5W 250 mL (VANCOCIN) 1.5 g INTRAVENOUS ONCE - tranexamic acid 1,000 mg in NaCl 0.9% 100 mL (CYKLOKAPRON) 1,000 mg INTRAVENOUS ONCE - tranexamic acid 1,000 mg in NaCl 0.9% 100 mL (CYKLOKAPRON) 1,000 mg INTRAVENOUS ONCE - [COMPLETED] acetaminophen 1,000 mg tab(s) (TYLENOL) 1,000 mg ORAL Pre-Op Once - [COMPLETED] promethazine 12.5 mg tab(s) (PHENERGAN) 12.5 mg ORAL Pre-Op Once - [COMPLETED] magnesium oxide 800 mg tab(s) (MAG-OX) 800 mg ORAL ONCE Outpatient Medications as of 12/27/2020 Medication Sig - tamsulosin (FLOMAX) 0.4 mg Take 0.4 mg by mouth once daily. - pantoprazole DR (PROTONIX) 40 mg tablet Take 40 mg by mouth once daily. - enalapril (VASOTEC) 5 mg tablet Take 5 mg by mouth once daily. - amoxicillin (POLYMOX, AMOXIL) 500 mg capsule Please take 4 pills by mouth 1 hour prior to dental appointment - furosemide (LASIX) 20 mg tablet Take 20 mg by mouth twice daily. - rosuvastatin (CRESTOR) 20 mg tablet Take 20 mg by mouth daily at bedtime. - potassium chloride SR (MICRO-K) 10 mEq CR capsule Take 10 mEq by mouth twice daily. - Ipratropium Paris (ATROVENT) 0.03 % nasal spray Use 2 Sprays in the nose as needed. - metaxalone (SKELAXIN) 800 mg tablet Take 800 mg by mouth twice daily as needed for Pain. I have interviewed and examined the patient. I have reviewed the medical record and/or the pre-anesthesia evaluation, pertinent labs, and test results. This contains updated information obtained within 48 hours of Surgery/Procedure. SIGNATURE: Megha Tavarez MD PATIENT NAME: Abdifatah Macario DATE: December 27, 2020 TIME: 1:52 PM CSN: [id number] [facility] BRIEF OP NOTon 12-27-2020 BRIEF OP NOT HNO ID: [id number] Author: Marco Antonio Yang MD Service: Orthopaedic Surgery Author Type: Physician Type: Brief Op Note Filed: 12/27/2020 5:52 PM Note Text: BRIEF OP NOTE LOG ID: [id number] Surgery/Procedure Date: 12/27/2020 Incision/Procedure Start Time: 3:46 PM Incision Close/Procedure End Time: Surgeon(s)/Procedurali st(s) and House Worker General(s): Surgeon(s) and Role: * Celina Garcia MD - Primary * Marco Antonio Yang MD - Fellow Procedure(s): Left TKA Anesthesia: Spinal Findings: Left knee DJD Estimated Blood Loss: 100 mls Specimens: * No specimens in log * Complications: None Pre-Op Diagnosis: Primary osteoarthritis of left knee [M17.12] Post-Op Diagnosis: Same Post-Operative Plan: - Weightbearing: WBAT - Range of Motion: AROM as tolerated - Dressing: silver dressing x 7 days post-op - Drains: n/a - Luna: Per nursing protocol - Diet: regular - HLIV when tolerating adequate PO - DVT Prophylaxis: Aspirin 81mg BID x 4 wks, SCDs - Antibiotics: ancef carmencita-op - Cultures: n/a - Consults: PT/OT, care management, appreciate recs Dispo: Pending PT/OT recs, anticipated discharge POD1-2 Marco Antonio Yang MD [facility] CNDSon 12-27-2020 CNDS HNO ID: [id number] Author: Laurie Sotomayor APRN.SCARIFIER OPERATOR Service: Orthopaedic Surgery Author Type: Nurse Practitioner Type: Discharge Summary Filed: 12/28/2020 12:58 PM Note Text: Attestation signed by Celina Garcia MD at 12/29/2020 7:51 AM I agree with the above summary as outlined above. Celina Garcia MD DISCHARGE SUMMARY PATIENT NAME: Abdifatah Macario ADMISSION DATE: 12/27/2020 DISCHARGE DATE: 12/28/2020 Attending Physician: Celina Garcia MD Code Status: Not on file Highest Readmission Risk Score: 7 The 30 day readmissions risk score is derived from an internally validated risk model which evaluates patient level characteristics, utilization history, medication orders and lab results up until the day of discharge. Patients with a score of 40 or above are considered highest risk for readmission. Specific patient level drivers will be listed at the bottom of the summary. Reason for Hospitalization: Left TKA Admitting Diagnosis: Knee Advanced Degenerative Joint Disease Discharge Diagnosis: Same as admitting Operations During Hospitalization: Left TKA Consultations: Physical Therapy Case Management Hospital Course: Please see perioperative HANDP for complete pre-admission details. The patient arrived at [facility] on the above date and where they were taken to the operating room for the above procedure. Please see operative note from that date for complete procedure details. The procedure went without complication and the patient was taken from the OR to the PACU followed by the RNF in stable condition. Once on the floor, their vital signs, pain, medication administration, and activity were all closely monitored and well controlled. Physical therapy, occupational therapy, and case management were consulted for in-house therapy and discharge planning. The patient was seen and examined multiple times each day and continued to improve on a daily basis. The patient tolerated PO intake well. The patient's pain was well controlled on PO medications. The patient was prepared for discharge and this was arranged with case management. The patient was then discharged to Home with Home Health in stable condition. Discharge Antibiotics: Prior to surgery the patient was treated with antibiotics and continued with antibiotics postoperatively Transfers: PACU and then to the hospital surgical floor when PACU criteria was met. DVT Prophylaxis: ASA 81 mg BID x 28 days Pain Control: Oral narcotics Complications: Continued throughout the hospital course without complications. Patient Condition @ Discharge: Stable Discharge Disposition: Home with Home Health Information Provided to Patient: Discharge Instructions Activity: Weight Bearing As Tolerated Diet: Resume pre-hospital diet Wound/Surgical Site Care: Silver dressing x 7 days post-op ALLERGIES No Known Allergies Discharge Medications: Current Discharge Medication List START taking these medications oxyCODONE IR (ROXICODONE) 5-10 mg Take 5-10 mg by mouth every 4 hours as needed for pain. Qty: 84 tablet Refills: 0 Associated Diagnoses:Status post total knee replacement, left naloxone 4 mg/actuation nasal spray (NARCAN) Use 1 spray in one nostril as needed for overdose. May repeat every 2 to 3 min in alternating nostrils until medical assistance is available Qty: 1 Each Refills: 0 acetaminophen (TYLENOL) 1,000 mg Take 1,000 mg by mouth every 8 hours as needed for pain. Qty: 60 tablet Refills: 0 aspirin, enteric coated (ASPIRIN, ENTERIC COATED) 81 mg Take 81 mg by mouth twice daily. Qty: 56 tablet Refills: 0 docusate sodium (COLACE) 100 mg Take 100 mg by mouth twice daily. Qty: 15 capsule Refills: 0 CONTINUE these medications which have NOT CHANGED Multivitamin 1 capsule Take 1 capsule by mouth once daily. cyanocobalamin, vitamin B-12, (VITAMIN B-12 ORAL) Take by mouth. sucralfate (CARAFATE) 1 g Take 1 g by mouth four times daily. Qty: 120 tablet Refills: 3 Associated Diagnoses:Bile acid esophageal reflux; Duodenogastric bile reflux tamsulosin (FLOMAX) 0.4 mg Take 0.4 mg by mouth once daily. pantoprazole DR (PROTONIX) 40 mg Take 40 mg by mouth once daily. enalapril (VASOTEC) 5 mg Take 5 mg by mouth once daily. amoxicillin (POLYMOX, AMOXIL) 500 mg capsule Please take 4 pills by mouth 1 hour prior to dental appointment Qty: 4 capsule Refills: 1 metaxalone (SKELAXIN) 800 mg Take 800 mg by mouth twice daily as needed for pain. furosemide (LASIX) 20 mg Take 20 mg by mouth twice daily. rosuvastatin (CRESTOR) 20 mg Take 20 mg by mouth daily at bedtime. potassium chloride SR (MICRO-K) 10 mEq Take 10 mEq by mouth twice daily. Ipratropium [place] (ATROVENT) 2 Sprays Use 2 Sprays in the no (more content not included)... [facility] NURSING PROGon 12-27-2020 NURSING PROG HNO ID: [id number] Author: Lachelle Frank RN Service: ? Author Type: Registered Nurse Type: Nursing Progress Note Filed: 12/27/2020 3:49 PM Note Text: Patient transported to the OR via cart, accompanied by ap/ar. Level of consciousness: Drowsy Emotional Status:Calm Sensory Impairments: No Language Barrier: No Mobility Impairments: Yes, spinal anesthesia Addressed any patient concerns regarding consents, OR environment, and anesthetics. Body temperature maintained by maintaining OR room temperature between 68-72 degrees F, providing patient with warm bath blankets, limiting areas of exposure and providing warm irrigation fluid. Patient family member updated via text at 1547 [facility] OPERATIVE NOon 12-27-2020 OPERATIVE NO HNO ID: [id number] Author: Celina Garcia MD Service: Orthopaedic Surgery Author Type: Physician Type: Operative Report Filed: 12/28/2020 8:06 AM Note Text: OPERATIVE/PROCEDURE REPORT LOG ID: [id number] Surgery/Procedure Date: 12/27/2020 Incision/Procedure Start Time: 3:46 PM Incision Close/Procedure End Time: 5:52 PM Surgeon(s) and House Worker General(s): Surgeon(s) and Role: * Celina Garcia MD - Primary * Marco Antonio Yang MD - Fellow 1st assist Physician House Worker General: Jayme Benz PA-C; Antwan Chow PA-C; Travis Chairez PA-C no qualified resident available to assist Procedure(s): Procedure(s) (LRB): ARTHROPLASTY REPLACE JOINT TOTAL KNEE (Left) Anesthesia: Spinal Findings: The medial compartment was severely eburnated with bone loss on the posterior medial tibia and posterior medial femoral condyles Preop Diagnosis: Pre-Op Diagnosis Codes: * Primary osteoarthritis of left knee [M17.12] Postop Diagnosis: Pre-Op Diagnosis Codes: * Primary osteoarthritis of left knee [M17.12] IMPLANTS: Implant Name Type Inv. Item Serial No. Premix Operator Concentrate Lot No. LRB Model Num No. Used EXTENSION PERSONA 14MM TAPER 30+ MM STEM KNEE TIBIA - [id number] Joint EXTENSION PERSONA 14MM TAPER 30+ MM STEM KNEE TIBIA [employer] [id number] Left [id number] 1 INSERT PERSONA 8-11 G-H VIVACIT-E 12MM ARTICULAR STERILE KNEE LEFT Implant [employer] [id number] Left [phone] 1 CEMENT SIMPLEX P TOBRAMYCIN BONE FULL DOSE RADIOPAQUE PREBLEND STERILE - [id number] Cement / Putty CEMENT SIMPLEX P TOBRAMYCIN BONE FULL DOSE RADIOPAQUE PREBLEND STERILE [facility] [id number] Left [id number] 1 BASEPLATE PERSONA 5D H TIVANIUM TIBIAL CEMENTED STEM KNEE LEFT - [id number] Joint BASEPLATE PERSONA 5D H TIVANIUM TIBIAL CEMENTED STEM KNEE LEFT [employer] [id number] Left [phone] 1 CEMENT SIMPLEX P TOBRAMYCIN BONE FULL DOSE RADIOPAQUE PREBLEND STERILE - [id number] Cement / Putty CEMENT SIMPLEX P TOBRAMYCIN BONE FULL DOSE RADIOPAQUE PREBLEND STERILE [facility] [id number] Left [id number] 1 COMPONENT PERSONA 11 STANDARD COCR FEMORAL CRUCIATE RETAIN - [id number] Joint - Knee COMPONENT PERSONA 11 STANDARD COCR FEMORAL CRUCIATE RETAIN [employer] [id number] Left [id number] 1 COMPONENT 35MM ALL POLY PATELLAR PSN - [id number] Joint - Knee COMPONENT 35MM ALL POLY PATELLAR PSN [employer] [id number] Left [phone] PROBLEM LIST: 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 They have developed varus deformity in the left knee from predominantly medial wear and bone loss. Non-operative treatment and Physical Therapy have been attempted , but have not improved or controlled the symptoms and pain that occurs during normal daily activities. Knee motion has also become limited and is restricting the patient. lefttotal knee arthroplasty was recommended. The risks, benefits and potential complications of the arthroplasty surgery were discussed with the patient in detail. Specific details of the surgical procedure, hospitalization, recovery, rehabilitation, and long-term precautions were also presented. Pre-operative teaching was provided. Implant/prosthesis selection was outlined, and the many options available were explained; the final choice will be made at the time of the procedure to match the anatomy and condition of the bone, ligaments, tendons, and muscles. The patient was seen by [facility] Medicine for pre-operative optimization, and risk assessment. Carmencita-operative blood management and the potential for blood transfusion were discussed with risks and options clearly outlined. Understanding of all topics was conveyed to me by the patient pre-operatively, and patient consent was given to proceed with theleft total knee replacement. OPERATIVE PROCEDURE: The patient was identified and brought into the Operating Room by the anesthesia and nursing teams. A huddle was performed with the patient's participation to confirm name, date of , surgery/site of surgery, and allergies. Anesthesia was successfully performed. The patient was then positioned supine on the operating room table, and all bony prominences were padded. Intravenous antibiotic prophylaxis dosing was confirmed. A tourniquet was applied to the left upper thigh. A full knee exam was done after anesthesia was in full effect. The operative leg was prepped and draped in the usual sterile fashion. A surgical time-out wa (more content not included)... Normal [facility] Type and SCR (30D)on 021 ABO/RH(D) Positive Normal [facility] Comment on above: Performed By: #### T [id number] ####[facility] [phone] [facility] SOFYA DIGITAL SCREEN UNI LEFTOrdered By: Marissa Loredo on 12-07-2020 Patient Name: ABDIFATAH MACARIO Mammography ACCESSION EXAM DATE/TIME PROCEDURE ORDERING PROVIDER [id number] 12/07/2020 08:52 EDT MG Breast Tomosynthesis MD YOJANA, MARISSA Ayan Scr Left CPT code 59010 66466 Reason For Exam (MG Breast Tomosynthesis Scr Left) C50.121,Z12.13 Report TIME SINCE LAST MAMMOGRAM: Last mammogram was performed 1 year and 1 month ago. REASON FOR EXAM: screening, asymptomatic. PROCEDURE: MG BREAST TOMOSYNTHESIS SCR LEFT: DECEMBER 07, 2020 - 2D/3D Procedure 3D CC and MLO view(s) were taken of the left breast. 2D CC and MLO view(s) were taken of the left breast. Prior study comparison: November 03, 2019, left breast MG breast tomosynthesis scr left performed at [facility]. October 28, 2018, left breast MG breast tomosynthesis scr left performed at [facility]. September 18, 2017, left breast MG breast tomosynthesis scr left performed at [facility]. TISSUE DENSITY: BIRADS A - The breast tissue is almost entirely fat. . FINDINGS: No suspicious masses, architectural distortions or suspiciously clustered microcalcifications are identified. There is no evidence of skin thickening or nipple retraction. There are no significant changes when compared with prior studies. No mammographic evidence of malignancy. Markings on images: BB's = Nipples; skin lesions [employer] = Palpable Line = Scar 2D digital mammography and tomosynthesis imaging were performed and reviewed with CAD. ASSESSMENT: Category 1 Negative Mammography Report RECOMMENDATION: Routine screening mammogram of the left breast in 1 year. . Report Dictated on --- Final --- Signed Date and Time: 12/07/2020 9:05 am Signed by: MD JANE, FADI GORDILLO Work Phone: [facility] Incoming Radiology Results From [facility] - 12/07/2020 9:24 AM EDT Patient Name: ABDIFATAH MACARIO Mammography ACCESSION EXAM DATE/TIME PROCEDURE ORDERING PROVIDER [id number] 12/07/2020 08:52 EDT MG Breast Tomosynthesis MD YOJANA, MARISSA Botello Scr Left CPT code 69251 25530 Reason For Exam (MG Breast Tomosynthesis Scr Left) C50.121,Z12.13 Report TIME SINCE LAST MAMMOGRAM: Last mammogram was performed 1 year and 1 month ago. REASON FOR EXAM: screening, asymptomatic. PROCEDURE: MG BREAST TOMOSYNTHESIS SCR LEFT: DECEMBER 07, 2020 - 2D/3D Procedure 3D CC and MLO view(s) were taken of the left breast. 2D CC and MLO view(s) were taken of the left breast. Prior study comparison: November 03, 2019, left breast MG breast tomosynthesis scr left performed at [facility]. October 28, 2018, left breast MG breast tomosynthesis scr [facility] [place]. September 18, 2017, left breast MG breast tomosynthesis scr left performed at [facility] [place]. TISSUE DENSITY: BIRADS A - The breast tissue is almost entirely fat. . FINDINGS: No suspicious masses, architectural distortions or suspiciously clustered microcalcifications are identified. There is no evidence of skin thickening or nipple retraction. There are no significant changes when compared with prior studies. No mammographic evidence of malignancy. Markings on images: BB's = Nipples; skin lesions [employer] = Palpable Line = Scar 2D digital mammography and tomosynthesis imaging were performed and reviewed with CAD. ASSESSMENT: Category 1 Negative Mammography Report RECOMMENDATION: Routine screening mammogram of the left breast in 1 year. . Report Dictated on --- Final --- Signed Date and Time: 12/07/2020 9:05 am Signed by: MD LARA LAUREN B [facility] Work Phone: [facility] Work Phone: XR Knee - left 4 Viewson IMPRESSION: Osteoarthritis left knee, severe in the medial compartment. Wool Batting Worker: SORAIDA Transcribe Date/Time: Oct 13 2020 1:19P Dictated by : PETER BACH MD This examination was interpreted and the report reviewed and electronically signed by: PETER BACH MD on Oct 13 2020 1:19PM [facility] DIVISION OF RADIOLOGY * * *Final Report* * * DATE OF EXAM: Oct 13 2020 1:09PM CCX 5202 - XR KNEE 4V AP/PA BOTH+LAT/FLEX LT / PROCEDURE REASON: Pain * * * * Physician Interpretation * * * * X-RAYS LEFT KNEE HISTORY: PAIN. Pain TECHNIQUE: 4 views of the left knee. COMPARISON: 04/14/2020 RESULT: Tricompartmental osteoarthritis left knee, severe in the medial compartment with near complete loss of the joint space. There are small tricompartment osteophytes. There is chondrocalcinosis. Remote healed fracture proximal fibula. Right total knee arthroplasty is noted. DIVISION OF RADIOLOGY Provider, [facility] - 10/13/2020 * * *Final Report* * * DATE OF EXAM: Oct 13 2020 1:09PM CCX 5202 - XR KNEE 4V AP/PA BOTH+LAT/FLEX LT / PROCEDURE REASON: Pain * * * * Physician Interpretation * * * * X-RAYS LEFT KNEE HISTORY: PAIN. Pain TECHNIQUE: 4 views of the left knee. COMPARISON: 04/14/2020 RESULT: Tricompartmental osteoarthritis left knee, severe in the medial compartment with near complete loss of the joint space. There are small tricompartment osteophytes. There is chondrocalcinosis. Remote healed fracture proximal fibula. Right total knee arthroplasty is noted. IMPRESSION IMPRESSION: Osteoarthritis left knee, severe in the medial compartment. Wool Batting Worker: SORAIDA Transcribe Date/Time: Oct 13 2020 1:19P Dictated by : PETER BACH MD This examination was interpreted and the report reviewed and electronically signed by: PETER BACH MD on Oct 13 2020 1:19PM EST [facility] Radiology Study observation (narrative) [facility] XR Knee - left 4 ViewsOrdere d By: Ccf Provider on 10-13-2020 [facility] US ABDOMEN LIMITED Specify o rgan? LIVER, GALLBLADDER, PANCREASOrdered By: aDnial Dempsey on 06-10-2020 Patient Name: ABDIFATAH MACARIO Ultrasound ACCESSION EXAM DATE/TIME PROCEDURE ORDERING PROVIDER [id number] 06/10/2020 08:25 EDT US Abdomen Limited MD ROSELYN, DANIAL CASEY CPT code 28736 Reason For Exam (US Abdomen Limited) nausea persistent, anemia, known cheung's Report Right upper quadrant ultrasound: 06/10/2020. CLINICAL INFORMATION: Right upper quadrant pain, nausea. Sonographic examination of the right upper quadrant was performed. Comparison: No prior studies for comparison Liver: Sonographic examination of the liver reveals the echogenicity of the liver parenchyma to be inhomogeneous with poor penetration of sound in the deeper portions of the right lobe consistent with fatty infiltration. There is a focal hypoechoic area adjacent to the gallbladder fossa consistent with focal normal liver. No other focal hyper or hypo echoic areas are identified. There is no evidence of intrahepatic biliary dilatation. Gallbladder: Sonographic examination of the gallbladder reveals the gallbladder to be nondistended and the gallbladder wall not thickened. No echogenic foci with acoustic shadowing are identified to suggest gallstones. The common bile duct measures 4 mm, which is within normal limits. The patient was not tender when scanning over the area. Pancreas: Sonographic examination reveals the pancreas to be obscured by overlying bowel gas. No peripancreatic fluid collections are seen. Right kidney: Cursory examination of the right kidney reveals no evidence of hydronephrosis. IMPRESSION: Fatty infiltration of the liver. Pancreas obscured. Report Dictated on --- Final --- Dictating Physician: MD NGUYEN RISA Signed Date and Time: 06/10/2020 10:04 am Signed by: MD NGUYEN RISA Transcribed Date and Time: 06/10/2020 10:05 [facility]: Adiel, Rand Incoming Radiology Results From [facility] - 06/10/2020 10:05 AM EDT Patient Name: ABDIFATAH MACARIO Ultrasound ACCESSION EXAM DATE/TIME PROCEDURE ORDERING PROVIDER [id number] 06/10/2020 08:25 EDT US Abdomen Limited MD DEMPSEY NANCY LOUISE CPT code 78943 Reason For Exam (US Abdomen Limited) nausea persistent, anemia, known cheung's Report Right upper quadrant ultrasound: 06/10/2020. CLINICAL INFORMATION: Right upper quadrant pain, nausea. Sonographic examination of the right upper quadrant was performed. Comparison: No prior studies for comparison Liver: Sonographic examination of the liver reveals the echogenicity of the liver parenchyma to be inhomogeneous with poor penetration of sound in the deeper portions of the right lobe consistent with fatty infiltration. There is a focal hypoechoic area adjacent to the gallbladder fossa consistent with focal normal liver. No other focal hyper or hypo echoic areas are identified. There is no evidence of intrahepatic biliary dilatation. Gallbladder: Sonographic examination of the gallbladder reveals the gallbladder to be nondistended and the gallbladder wall not thickened. No echogenic foci with acoustic shadowing are identified to suggest gallstones. The common bile duct measures 4 mm, which is within normal limits. The patient was not tender when scanning over the area. Pancreas: Sonographic examination reveals the pancreas to be obscured by overlying bowel gas. No peripancreatic fluid collections are seen. Right kidney: Cursory examination of the right kidney reveals no evidence of hydronephrosis. IMPRESSION: Fatty infiltration of the liver. Pancreas obscured. Report Dictated on --- Final --- Dictating Physician: MD NGUYEN RISA Signed Date and Time: 06/10/2020 10:04 am Signed by: MD NGUYEN RISA Transcribed Date and Time: 06/10/2020 10:05 [facility] Work Phone: XR Knee AP and Lateral and [facility] [place] 04-14-2020 IMPRESSION: Right total knee arthroplasty with mild postoperative swelling. Wool Batting Worker: SORAIDA Transcribe Date/Time: Apr 14 2020 2:12P Dictated by : BRUCE DUMONT MD This examination was interpreted and the report reviewed and electronically signed by: BRUCE DUMONT MD on Apr 14 2020 2:14PM [facility] DIVISION OF RADIOLOGY * * *Final Report* * * DATE OF EXAM: Apr 14 2020 12:56PM CCX 5209 - XR KNEE 3V AP/LAT/MERCHANT RT / PROCEDURE REASON: Primary osteoarthritis of right knee * * * * Physician Interpretation * * * * Examination: Right knee History: POST OP RT KNEE Primary osteoarthritis of right knee Technique: XR KNEE 3V AP/LAT/MERCHANT RT --RIGHT KNEE: Five views including AP standing and merchant views of both knees (2 views of each knee) and a lateral view of the right knee Comparison: Preoperative 11/12/2019 FINDING/ RESULT: On the RIGHT, there is a new cemented total knee arthroplasty with patellar button. Mild anterior soft tissue swelling and effusion. Knee alignment is improved compared with preoperative. Images of the left knee show continued moderately severe medial compartment narrowing with chondrocalcinosis. DIVISION OF RADIOLOGY Provider, Norah Masters [facility] - 04/14/2020 * * *Final Report* * * DATE OF EXAM: Apr 14 2020 12:56PM CCX 5209 - XR KNEE 3V AP/LAT/MERCHANT RT / PROCEDURE REASON: Primary osteoarthritis of right knee * * * * Physician Interpretation * * * * Examination: Right knee History: POST OP RT KNEE Primary osteoarthritis of right knee Technique: XR KNEE 3V AP/LAT/MERCHANT RT --RIGHT KNEE: Five views including AP standing and merchant views of both knees (2 views of each knee) and a lateral view of the right knee Comparison: Preoperative 11/12/2019 FINDING/ RESULT: On the RIGHT, there is a new cemented total knee arthroplasty with patellar button. Mild anterior soft tissue swelling and effusion. Knee alignment is improved compared with preoperative. Images of the left knee show continued moderately severe medial compartment narrowing with chondrocalcinosis. IMPRESSION IMPRESSION: Right total knee arthroplasty with mild postoperative swelling. Wool Batting Worker: SORAIDA Transcribe Date/Time: Apr 14 2020 2:12P Dictated by : BRUCE DUMONT MD This examination was interpreted and the report reviewed and electronically signed by: BRUCE DUMONT MD on Apr 14 2020 2:14PM EST [facility] Radiology Study observation (narrative) [facility] XR Knee AP and Lateral and M erchantsOrdered By: Ccf Provider on 04-14-2020 [facility] Basic Metabolic Panlon 03-16 Anion gap [Moles/Vol] 9 mmol/L Normal 9-18 [facility] Comment on above: Performed By: #### C BC, BMP ####[facility] [phone] Calcium [Mass/Vol] 8.6 mg/dL Normal 8.5-10.[address] [facility] Comment on above: Performed By: #### C BC, BMP ####[address] Chloride [Moles/Vol] 103 mmol/L Normal 97-105 [facility] Comment on above: Performed By: #### C BC, BMP ####[address] CO2 [Moles/Vol] 26 mmol/L Normal 22-30 [facility] Comment on above: Performed By: #### C BC, BMP ####[place] [phone] Creatinine [Mass/Vol] 1.07 mg/dL Normal 0.73-1.22 [facility] Comment on above: Performed By: #### C BC, BMP ####[place] [phone] eGFR- Amer. >60 Normal >[address] [facility] Comment on above: Performed By: #### C BC, BMP ####[address] eGFR-All Other Races >60 Normal >60 [facility] Comment on above: Result Comment: eGFR (Estimated GFR) Units of measure: mL/min/1.73 meters squared eGFR is derived from the reexpressed MDRD Study equation using the following parameters: serum creatinine, age, gender and race. The creatinine assay has been calibrated to be traceable to IDMS. An eGFR <60 mL/min/1.73m2 for >3 months is consistent with chronic kidney disease. Refer to KDOQI guidelines for clinical interpretation. In patients with unstable renal function, e.g. those with acute kidney injury, the eGFR may not accurately reflect actual GFR. Performed By: #### C BC, BMP ####[address] Glucose [Mass/Vol] 125 mg/dL High 74-[address] [facility] Comment on above: Performed By: #### C BC, BMP ####[place] [phone] Potassium [Moles/Vol] 4.5 mmol/L Normal 3.7-5.1 [facility] Comment on above: Performed By: #### C BC, BMP ####[address] Sodium [Moles/Vol] 138 mmol/L Normal 136-[address] [facility] Comment on above: Performed By: #### C BC, BMP ####[address] Urea nitrogen [Mass/Vol] 21 mg/dL Normal 9-24 [facility] Comment on above: Performed By: #### C BC, BMP ####[address] CBCon 03-16-2020 Absolute nRBC <0.01 Normal <0.01 [facility] Comment on above: Performed By: #### C BC, BMP ####[address] Erythrocyte distribution width (RBC) [Ratio] 13.6 % Normal 11.5-15.0 [facility] Comment on above: Performed By: #### C BC, BMP ####[address] Hematocrit (Bld) [Volume fraction] 37.0 % Low 39.0-51.0 [facility] Comment on above: Performed By: #### C BC, BMP ####[address] Hemoglobin (Bld) [Mass/Vol] 11.9 g/dL Low 13.0-17.0 [facility] Comment on above: Performed By: #### C BC, BMP ####[address] MCH 29.3 pG Normal 26.0-34.0 [facility] Comment on above: Performed By: #### C BC, BMP ####[address] MCHC (RBC) [Mass/Vol] 32.2 g/dL Normal 30.5-36.0 [facility] Comment on above: Performed By: #### C BRUNILDA, BMP ####[address] MCV (RBC) [Entitic vol] 91.1 fL Normal 80.0-100.0 [facility] Comment on above: Performed By: #### C BRUNILDA, BMP ####[address] Platelet mean volume (Bld) [Entitic vol] 9.7 fL Normal 9.0-12.7 [facility] Comment on above: Performed By: #### C BRUNILDA, BMP ####[address] Platelets (Bld) [#/Vol] 253 10*3/uL Normal 150-400 [facility] Comment on above: Performed By: #### C BRUNILDA, BMP ####[address] RBC (Bld) [#/Vol] 4.06 10*6/uL Low 4.20-6.00 [facility] Comment on above: Performed By: #### C BRUNILDA, BMP ####[address] WBC (Bld) [#/Vol] 11.73 10*3/uL High 3.70-11.00 [facility] Comment on above: Performed By: #### C BRUNILDA, BMP ####[address] CNDSon 03-16-2020 CNDS HNO ID: [id number] Author: Celina Garcia Service: Orthopaedic Surgery Author Type: Physician Type: Discharge Summary Filed: 03/17/2020 7:06 AM Note Text: ORTHOPEDIC SURGERY DISCHARGE SUMMARY ADMISSION DATE: 03/15/2020 DISCHARGE DATE: 03/16/2020 Attending Physician: Celina Garcia Reason for Hospitalization: right TKA Admitting Diagnosis: Knee Advanced Degenerative Joint Disease Discharge Diagnosis: Knee Advanced Degenerative Joint Disease Additional Diagnoses: 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 Celina Garcia MD in clinic for right knee pain. It was determined he would benefit from surgery. The procedure, its risks, benefits, and potential complications were discussed in detail with the patient prior to surgery. Understanding of all topics was conveyed by the patient, and consent was given for surgery. The patient was electively admitted to the [facility]. Surgery was scheduled and on 03/15/2020 he underwent a Procedure(s) (LRB): ARTHROPLASTY REPLACE JOINT TOTAL KNEE (Right) with Spinal Anesthesia. The procedure was tolerated well and he was sent to the post operative recovery room in stable condition, where he also did well. He was subsequently sent to his hospital room for postoperative management. Once on the floor his postoperative course was unremarkable and he did well. His diet was advanced which he tolerated. His pain was well controlled and was eventually transitioned to oral medication alone prior to discharge. He worked with Physical and Occupational Therapy who recommended he be discharged home. His dressing remained clean dry and intact throughout his stay. He remained afebrile with stable vital signs throughout his stay. He was stable for discharge to home on POD#1. Complete and comprehensive discharge instructions were provided to the patient as well as necessary prescriptions. The patient had no further questions and was advised to call with any questions, concerns, or problems. Patient was hemodynamically stable postoperatively. Relevant labs included: Hemoglobin (g/dL) Date Value 02/27/2020 14.3 Hematocrit (%) Date Value 02/27/2020 42.8 Discharge Antibiotics: Prior to surgery the patient was treated with antibiotics and continued with antibiotics 24 hours postoperatively Transfers: PACU and then to the hospital surgical floor when PACU criteria was met. DVT Prophylaxis: Aspirin to reduce risk of bleeding Pain Control: Oral narcotics Complications: Continued throughout the hospital course without complications. Patient Condition @ Discharge: Stable Discharge Disposition: Home with Home Health Care Other Information: None Discharge Activity/Weight Bearing Status: Weight bearing as tolerated The patient was instructed to follow-up in Future Appointments Date Time Provider Department Center 04/14/2020 12:45 PM XR [facility] RGIND [facility] 04/14/2020 1:20 PM Franklyn Duffy) [place] ALVINASAM [facility] 06/09/2020 3:00 PM Celina Quynh Jose [facility] Ind Discharge Medications: Current Discharge Medication List START taking these medications aspirin, enteric coated (ASPIRIN, ENTERIC COATED) 81 mg Take 81 mg by mouth twice daily. Qty: 60 tablet Refills: 0 meloxicam (MOBIC) 15 mg Take 15 mg by mouth once daily. Qty: 28 tablet Refills: 0 oxyCODONE IR (ROXICODONE) 5-10 mg Take 5-10 mg by mouth every 4 hours as needed for Pain. Take 1-2 tablets by mouth every 4 hours as needed for up to 7 days for pain. Qty: 84 tablet Refills: 0 Associated Diagnoses:Primary osteoarthritis of right knee acetaminophen (TYLENOL) 1,000 mg Take 1,000 mg by mouth every 8 hours. Qty: 42 tablet Refills: 0 docusate sodium (COLACE) 100 mg Take 100 mg by mouth twice daily as needed for Constipation. Qty: 20 capsule Refills: 0 CONTINUE these medications which have CHANGED pantoprazole DR (PROTONIX) 20 mg Take 20 mg by mouth once daily. Qty: 14 tablet Refills: 0 CONTINUE these medications which have NOT CHANGED furosemide (LASIX) 20 mg Take 20 mg by mouth twice daily. enalapril (VASOTEC) 5 mg Take 5 mg by mouth once daily. rosuvastatin (CRESTOR) 20 mg Take 20 mg by mouth daily at bedtime. potassium chloride SR (MICRO-K) 10 mEq Take 10 mEq by mouth twice daily. metaxalone (SKELAXIN) 800 mg Take 800 mg by mouth twice daily as needed for Pain. Ipratropium [place] (ATROVENT) 2 Sprays Use 2 (more content not included)... [facility] CONSULTon 03-16-2020 CONSULT HNO ID: [id number] Author: Solo Aguirre ([place]) Service: Pain Management Author Type: Physician House Worker General Type: Consults Filed: 03/16/2020 8:11 AM Note Text: Attestation signed by [place] Jean Baptiste II at 03/16/2020 10:22 AM agree INPATIENT PAIN MANAGEMENT CONSULT Patient Name: Abdifatah Macario SERVICE DATE: March 16, 2020 SERVICE TIME: 8:05 AM PRIMARY SERVICE: Ortho and Spine Consult by Dr. Garcia for acute post operative pain INTERVAL HPI: Is the patient having any pain? Yes LOCATION: right knee and thigh PAIN SCALE: 6 on a scale of 0-10 PAIN CHARACTER: aching FREQUENCY: (How often does the pain occur?) occurs constantly 69 year old WM cc right knee pain post replacement PERTINENT ROS: denies fever, chills, diarrhea, constipation, nausea, vomiting, CP, SOB, weakness, numbness, tingling or loss of bladder bowel control Denies muscle tightness All other reviewed and negative other than HPI. PAST MEDICAL HISTORY Diagnosis Date - Breast cancer (HCC) - HTN (hypertension) - Mixed hyperlipidemia PAST SURGICAL HISTORY Procedure Laterality Date - ANKLE SURGERY HX Left 07/1999 removal of hardware - KNEE ARTHROSCOPY/SURGERY Right 2016 - OPEN RX ANKLE DISLOCATN+FIXATN Left 1998 - REPAIR UMBILICAL HERNIA 2012 No family history on file. Social History Tobacco Use - Smoking status: Never Smoker - Smokeless tobacco: Never Used Substance Use Topics - Alcohol use: Not on file - Drug use: Not on file MEDICATIONS: Current Facility-Administered Medications Medication Dose Route Frequency - atorvastatin 80 mg tab(s) (LIPITOR) 80 mg ORAL AT BEDTIME - furosemide 20 mg tab(s) (LASIX) 20 mg ORAL BID 9a/5p - potassium chloride ER 10 mEq tab(s) (K-DUR, KLOR-CON) 10 mEq ORAL BID - aspirin, enteric coated 81 mg tab(s) 81 mg ORAL BID - NaCl 0.9% iv infusion 75 mL/hr INTRAVENOUS CONTINUOUS - sodium chloride 0.9 % (flush) 2-10 mL (BD POSIFLUSH) 2-10 mL INTRAVENOUS q 12 H - acetaminophen 1,000 mg tab(s) (TYLENOL) 1,000 mg ORAL q 8 H - ondansetron 4 mg tab(s) (ZOFRAN) 4 mg ORAL q 6 H PRN Or - ondansetron (PF) 4 mg injection (ZOFRAN) 4 mg INTRAVENOUS q 6 H PRN - magnesium hydroxide 400 mg/5 mL 30 mL (MOM) 30 mL ORAL DAILY PRN - [START ON 03/17/2020] bisacodyl EC 10 mg tab(s) (DULCOLAX) 10 mg ORAL DAILY - aluminum-magnesium hydroxide-simethicone 200-200-20 mg/5 mL 30 mL (MAALOX,MYLANTA,MAG-AL PLUS) 30 mL ORAL q 2 H PRN - ascorbic acid (vitamin C) 500 mg tab(s) (VITAMIN C) 500 mg ORAL BID w MEALS - docusate sodium 100 mg cap(s) (COLACE) 100 mg ORAL BID - oxyCODONE IR 5-10 mg tab(s) (ROXICODONE) 5-10 mg ORAL q 3 H PRN - enalapril 10 mg tab(s) (VASOTEC) 10 mg ORAL DAILY - pantoprazole DR 40 mg tab(s) (PROTONIX) 40 mg ORAL DAILY (6 AM) - cyclobenzaprine 5 mg tab(s) (FLEXERIL) 5 mg ORAL TID PRN - HYDROmorphone 0.5 mg injection (DILAUDID) 0.5 mg INTRAVENOUS q 4 H PRN - keTORolac 30 mg injection (TORADOL) 30 mg INTRAVENOUS q 6 H PHYSICAL EXAM: Blood pressure 121/86, pulse 77, temperature 36.7 ?C (98.1 ?F), temperature source Oral, resp. rate 16, height 172.7 cm (5' 8), weight 104.8 kg (231 lb), SpO2 94 %. GENERAL: Alert, no distress, cooperative SKIN: Skin color, texture, turgor normal. No rashes or lesions. HEAD/SINUSES: No significant findings EYES: PERRLA, EOMI Heart: RRR without murmur, gallop, or rubs. No ectopy Lungs: lungs clear to auscultation no wheezing or rhonchi Abdomen: Abdomen soft, non-tender. Bowel sounds normal. No masses, organomegaly EXTREMITIES: bandaged right knee NEURO: Motor and Sensory intact DATA: Diagnostic tests reviewed for today's visit: Most recent labs Glucose (mg/dL) Date Value 03/16/2020 125 Potassium (mmol/L) Date Value 03/16/2020 4.5 Sodium (mmol/L) Date Value 03/16/2020 138 Chloride (mmol/L) Date Value 03/16/2020 103 CO2 (mmol/L) Date Value 03/16/2020 26 Creatinine (mg/dL) Date Value 03/16/2020 1.07 BUN (mg/dL) Date Value 03/16/2020 21 Anion Gap (mmol/L) Date Value 03/16/2020 9 Calcium (mg/dL) Date Value 03/16/2020 8.6 WBC (k/uL) Date Value 03/16/2020 11.73 (H) RBC (m/uL) Date Value 03/16/2020 4.06 (L) Hemoglobin (g/dL) Date Value 03/16/2020 11.9 (L) Hematocrit (%) Date Value 03/16/2020 37.0 (L) MCV (fL) Date Value 03/16/2020 91.1 MCH (pG) Date Value 03/16/2020 29.3 MCHC (g/dL) Date Value 03/16/2020 32.2 RDW-CV (%) Date Value 03/16/2020 13.6 Platelet Count (k/uL) Date Value 03/16/2020 253 MPV (fL) Date Value 03/16/2020 9.7 ASSESSMENT AND PLAN: 69 year old WM s/p TKA R pod1 Pain stable Impression Status post right knee replacement Acute post operative pain Plan Continue tylenol, oxyir Will increase iv toradol to 30mg q 6hrs Will increase flex (more content not included)... Normal [facility] CONSULT PROGon 03-16-2020 CONSULT PROG HNO ID: [id number] Author: Amari Maldonado Service: General Internal Medicine Author Type: Physician Type: Consult Progress Note Filed: 03/16/2020 6:39 PM Note Text: CONSULT NOTE - INTERNAL MEDICINE PATIENT NAME: Abdifatah Macario SERVICE DATE: 03/16/2020 SERVICE TIME: 1:05 PM ADMITTING PHYSICIAN: Celina Garcia SUBJECTIVE: Patient denies any CP, SOB, Dizziness, Palpitations, Abdominal Pain, Nausea or Vomiting. He is passing flatus, denies any urinary problems His pain is controlled well OBJECTIVE PHYSICAL EXAM: Patient Vitals for the past 24 hrs: BP Temp Temp src Pulse Resp SpO2 Height Weight 03/16/20 1216 131/77 36.6 ?C (97.9 ?F) Oral 70 16 98 % ? ? 03/16/20 0830 126/63 36.9 ?C (98.4 ?F) Oral 74 16 93 % ? ? 03/16/20 0516 121/86 36.7 ?C (98.1 ?F) Oral 77 16 94 % ? ? 03/16/20 0039 122/67 36.6 ?C (97.9 ?F) Oral 72 16 96 % ? ? 03/15/20 2108 145/83 36.4 ?C (97.5 ?F) Oral 75 16 95 % ? ? 03/15/20 1702 147/92 36.4 ?C (97.5 ?F) Oral 73 16 99 % ? ? 03/15/20 1501 145/86 ? Oral (!) 57 17 100 % ? ? 03/15/20 1407 ? 172.7 cm (5' 8) 104.8 kg (231 lb) 03/15/20 1400 104/70 36.1 ?C (97 ?F) Temporal 60 19 100 % ? ? 03/15/20 1345 106/71 ? ? 61 15 100 % ? ? 03/15/20 1330 88/66 ? ? 61 15 96 % ? ? 03/15/20 1316 97/67 36.1 ?C (97 ?F) Temporal 63 22 96 % ? ? Body mass index is 35.12 kg/m?. GENERAL: no distress LUNGS: Lungs clear to auscultation, Fair air entry. CARDIAC: normal S1 and S2; no rubs or gallops ABDOMEN: Abdomen soft, non-tender. BS normal. 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 Status post right TKR: His pain is controlled with current regimen. He has been cleared by therapy. He is comfortable with plans for discharge to home today.. 2. Hypertension, essential: Continue Enalapril and furosemide 3. Hyperlipidemia: Continue statins. 4. GERD, Cheung's esophagus: Continue PPI. SIGNATURE: Aamri Maldonado MD DATE: March 16, 2020 TIME: 1:05 PM This note was partially created using voice recognition software and is inherently subject to errors including those of syntax and sound-alike substitutions which may escape proofreading. In such instances, original meaning may be extrapolated by contextual derivation [facility] NURSING PROGon 03-16-2020 NURSING PROG HNO ID: [id number] Author: Lottie Melissa RN (Acn) Service: ? Author Type: Advance Clinical Nurse Type: Nursing Progress Note Filed: 03/16/2020 2:31 PM Note Text: Nursing Progress Note Patient Name: Abdifatah Macario Patient Location: [facility]523D/[facility]D-523D __ Daily Note: Patient viewed discharge instruction video for total joints . Education/Teaching points reviewed: Wound care for Silverlon/Mepilex AG - any drainage upon removal notify surgeon Showering Nutrition Use of ice, no heat No pillow under the knee Wearing protocol for barb hose/doreen wraps Swelling (abnormal vs. Normal) Exercises (flexion vs extension), Level of activity patient should have daily to decrease post op complications Incentive spirometer use for home q1-2hrs while awake x1 week S/S of wound infection Fever greater than 101 and interventions S/S of DVT/PE and interventions Home physical therapy F/U care No submersion of knee or hip in tub or pool for 8-12 weeks Made aware they can activate metal detectors No driving while on narcotics and not until cleared by surgeon Any questions or concerns after D/C told to call surgeon's office If after hours, told to contact orthopedic resident bi solutions architect If any SOB/chest pain call 911 Antibiotic and DVT prophylaxis Medication handouts outlining the most common side effects for the following classifications of drugs were reviewed . Bowel management/constipatio n Opiod therapy/pain management Anti inflammatory/pain and swelling Tylenol/analgesic Anticoagulants/DVT prophylaxis Patient validated understanding of the above instructions. This note was completed by: Lottie Melissa RN [facility] THERAPY NTon 03-16-2020 THERAPY NT HNO ID: [id number] Author: Bertha Mckeon/Mo Quinn Service: ? Author Type: Occupational Therapist Type: Therapy (PT/OT/Speech/Resp) Filed: 03/16/2020 2:33 PM Note Text: Occupational Therapy Evaluation SERVICE DATE: 03/16/2020 SERVICE TIME: 1415 to 1430 ROOM: [place] [address] Recommended Discharge Disposition: Home Anticipated Discharge Needs: Physical Assist at Home Physical Assist at Home for: Cleaning;Laundry;Meals ;Shopping;Transportati on Recommended Discharge Equipment: No equipment needs anticipated OT 6 Clicks Score: 23 Patient is cleared for discharge home from an OT standpoint. Precautions/Activity Restrictions: Total Knee Replacement;Weight Bearing Restrictions;Lines/Tub es/Drains Extremity With Weight Bearing Restricted: Right Lower Extremity Right Lower Extremity Weight Bearing Status: WBAT Current Hospital Course: 69 yo male admitted with OA R knee, s/p R TKR Reason for Hospital Admission: s/p R TKR Relevant Past Medical History: brease CA, HTN, L ankle sx, knee scope Response to Therapy Interventions: Good participation in activities, On-track to achieve discharge goals Continue skilled needs due to: Functional impairment Occupational Therapy Problem List: Impaired Self Care;Functional Mobility Impairment Cognition/Communicatio n Deficits Responsiveness: Alert, Awake Follows Commands: 3-step Commands Treatment Interventions: Education;Self Care / Home Management;Functional Mobility Training Plan for next visit: (anticipate d/c home today) Home Environment Patient Lives With: Spouse Assistance Available: 24 Hour Entry To Home: Stairs;With Rail Number Of Stairs Into Home: 3 Number Of Stairs To Bed/Bath: Flight Stairs to Bed/Bath with: Unilateral Rail Tub/Shower Type: Tub shower Laundry: will complete Equipment Owned: Cane;Crutch(es);Wheele d Walker;Long Handled Shoe Horn Prior Functional Level: Within Functional Limits Prior Functional Level Comments: I with ADL's/IADL's, + driving, no AD for ambulation Patient Report: I know what I'm doing. CURRENT FUNCTIONAL STATUS: Most recent performance Current Activities of Daily Living Assist Level Additional Information Feeding Independent Grooming Modified Independent Bathing Upper Body Modified Independent Bathing Lower Body Supervision Dressing Upper Body Modified Independent Dressing Lower Body Minimal Assistance;Additional Information pt required assistance with donning R sock and shoe - pt's able to assist and he reported he will use his long-handled shoe horn at home Toileting Supervision Instrumental Activities of Daily Living Assist Level Additional Information Meal/Beverage Prep Cleaning Laundry Medication Management with Strategies Functional Mobility Assist Level Additional Information Rolling Supine to Sit Modified Independent Sit to Supine Scooting Sit to Stand Supervision Stand to Sit Supervision Bed to Chair Supervision Toilet/Commode Shower Functional Mobility Supervision Wheeled Walker Blank morton indicate activity not attempted Balance: Static Sitting;Dynamic Sitting;Static Standing;Dynamic Standing Static Sitting Balance: Normal Patient able to maintain steady balance without handhold support Dynamic Sitting Balance: Normal Patient accepts maximal challenge and can shift weight easily within full range in all directions Static Standing Balance: Normal Patient able to maintain steady balance without handhold support Dynamic Standing Balance: Good Patient accepts moderate challenge, able to maintain balance while picking up object off floor Learning/Educational Needs: Discharge Plan;Functional Activities/Mobility;Pl an of Care;Precautions;Rehab ilitation Techniques and Procedures;Self Care Goals for Plan of Care: Patient /Caregiver Goals: Go Home Goals: Patient will demonstrate progress with self-care, cognitive and/or coping needs identified to allow safe discharge to home with available support and/or physical assistance. Progress Toward Goals: Progressing as expected Rehab Potential: Good Patient will be discontinued from Occupational Therapy when no further skilled needs are identified in this setting. PLAN: Treatment Frequency (times per week): 1 Current admission Plan of Care developed with: Patient;Family(pt's present) TREATMENT INTERVENTIONS: Therapy Diagnosis: Reduced mobility-other;Decreas ed activities of daily living (ADL) Interventions Provided: Evaluation $ Evaluation-Low (73201) Billed Units: 1 unit Training AND education provided in: Adaptive equipment / DME, Activity adaption / compensatory strategies, Assistive device use, Bed mobility, Benefits of in-hospital mobility, Discharge planning, Lower extremity dressing, Functional mobility involving ADL's, Precautions/restrictio ns, Role of Occupational Therapy, Sitting balance to improve independence with ADLs/self-care, Standing balance to improve ind (more content not included)... [facility] THERAPY NT HNO ID: [id number] Author: Praveena (Pt) Harpreet Service: Physical Therapy Author Type: Physical Therapist Type: Therapy (PT/OT/Speech/Resp) Filed: 03/16/2020 9:38 AM Note Text: Physical Therapy Treatment SERVICE DATE: 03/16/2020 SERVICE TIME: 904 to 934 ROOM: [place] [address] Recommended Discharge Disposition: Outpatient Physical Therapy - Patient is cleared for discharge home. Recommended Discharge Disposition Comments: Patient has first appointment scheduled for 03/18 Anticipated Discharge Needs: Physical Assist at Home Physical Assist at Home for: Cleaning;Laundry;Meals ;Stairs;Shopping;Trans portation Recommended Discharge Equipment: No equipment needs anticipated PT 6 Clicks Score: 24 Precautions/Activity Restrictions: Total Knee Replacement;Weight Bearing Restrictions;Lines/Tub es/Drains Extremity With Weight Bearing Restricted: Right Lower Extremity Right Lower Extremity Weight Bearing Status: WBAT Current Hospital Course: 69 yo male admitted with OA R knee, s/p R TKR Reason for Hospital Admission: s/p R TKR Relevant Past Medical History: brease CA, HTN, L ankle sx, knee scope Response to Therapy Interventions: Good participation in activities, Improved tolerance for activity, Notable progression with functional activities/skills, On-track to achieve discharge goals, Pain Continue skilled needs due to: Functional mobility/skill impairments Physical Therapy Problem List: Edema;Pain;Decreased Activity Tolerance;Decreased Range Of Motion;Decreased Strength;Functional Mobility Impairment Treatment Interventions: Education;Joint Mobility;Strengthening ;Functional Mobility Training Home Environment Patient Lives With: Spouse Assistance Available: 24 Hour Entry To Home: Stairs;With Rail Number Of Stairs Into Home: 3 Number Of Stairs To Bed/Bath: Flight Stairs to Bed/Bath with: Unilateral Rail Tub/Shower Type: Tub shower Laundry: will complete Equipment Owned: Cane;Crutch(es);Wheele d Walker;Long Handled Shoe Horn Prior Functional Level: Within Functional Limits Prior Functional Level Comments: I with ADL's/IADL's, + driving, no AD for ambulation Patient Report: I walked down the alcantar and back at 2:00 this morning. CURRENT FUNCTIONAL STATUS: Most recent performance Current Functional Mobility Assist Level Additional Information Rolling Supine to Sit Independent Sit to Supine Independent Scooting Independent Sit to Stand Modified Independent Stand to Sit Modified Independent Bed to Chair Toilet/Commode Gait Modified Independent Gait Device: Wheeled Walker Gait Distance (feet): 175' Stairs Supervision Stairs Device: Cane;Rail Number of Stairs: 9 Curb Step Car Transfer Blank morton indicate activity not attempted Gait Deviations Right Lower Extremity: Lacks full knee extension during terminal swing;Weight bearing decreased;Stance time decreased Gait Deviations Left Lower Extremity: Step length decreased General Deviations/Observation s: Alexandra decreased JH-HLM: 7: Walk 25 feet or more Learning/Educational Needs: Discharge Plan;Functional Activities/Mobility;Pa in Management;Plan of Care;Rehabilitation Techniques and Procedures;Safety Goals for Plan of Care: Patient /Caregiver Goals: Go Home;Walk Goals: Patient will demonstrate progress with functional mobility to allow safe discharge to home with available support and/or physical assistance. Ambulate up and down steps with: Stand By Assistance Number of steps: 13 Device: Crutch(es);Rail Progress Toward Goals: Progressing as expected Rehab Potential: Good Patient will be discontinued from Physical Therapy when no further skilled needs are identified in this setting. PLAN: Treatment Frequency (times per week): 7 Current admission Plan of Care developed with: Patient TREATMENT INTERVENTIONS: Therapy Diagnosis: Reduced mobility-other;Unstead iness on feet Interventions Provided: Therapeutic Exercise (67795);Gait Training (98748) Therapeutic Exercise (80685) Treatment Minutes: 20 $ Therapeutic Exercise (48903) Billed Units: 1 unit Gait Training (78764) Treatment Minutes: 10 $ Gait Training (45199) Billed Units: 1 unit Training AND education provided in: Discharge planning, Disease specific education, Edema management, Exercise program, Gait pattern, reduction of deviations, Modalities, Positioning, Stair navigation The following therapeutic skills were used: Activity dosing, Cuing verbal, Cues for sequencing/proper technique for activity, Teach-back for education Total Timed Code Treatment Minutes: 30 Total Treatment Time (minutes): 30 Please see discipline specific clinical documentation flowsheet for complete details for this therapy evaluation/treatment. SIGNATURE: Praveena Mullins PT PATIENT NAME: Abdifatah Macario DATE: March 16, 2020 TIME: 9:37 AM [facility] ANES POSTPROC EVALon 021 ANES POSTPROC EVAL HNO ID: [id number] Author: Fely Watkins Service: ? Author Type: Anesthesiologist Type: Anesthesia Postprocedure Evaluation Filed: 03/15/2020 5:04 PM Note Text: POST ANESTHESIA EVALUATION NOTE : 1950 Procedure Summary Date: 03/15/20 Room / Location: [place] [address] / OR Anesthesia Start: 1059 Anesthesia Stop: 1318 Procedure: ARTHROPLASTY REPLACE JOINT TOTAL KNEE (Right Knee) Diagnosis: Primary osteoarthritis of right knee (Primary osteoarthritis of right knee [M17.11]) Surgeons: Celina Garcia Responsible Provider: Alberto Dowell Anesthesia Type: spinal ASA Status: 2 Anesthesia Type: spinal Last vitals Vitals Value Taken Time BP 145/86 03/15/20 1501 Temp 36.1 ?C (97 ?F) 03/15/20 1400 Pulse 57 03/15/20 1501 Resp 17 03/15/20 1501 SpO2 100 % 03/15/20 1501 Post Anesthesia Patient Status Patient Evaluation: bedside. Anticipated Disposition: inpatient floor planned admission. Neurological Status: aware and responsive. Pulmonary Status: breathing comfortably on room air Airway Control: returned to baseline unsupported. Cardiovascular Status: stable. Pain Management: clinically adequate Postoperative Hydration: acceptable. Intraoperative Events: no significant anesthesia events Post Operative Nausea/Vomiting Status: no significant post operative nausea or vomiting Anesthetic Observations: no significant anesthetic observations Recommendation: continue current plan of care. SIGNATURE: Fely Watkins MD PATIENT NAME: Abdifatah Macario DATE: March 15, 2020 TIME: 5:04 PM CSN: [id number] [facility] ANES PRE-OPon 03-15-2020 ANES PRE-OP HNO ID: [id number] Author: Alberto Dowell Service: ? Author Type: Physician Type: Anesthesia Preprocedure Evaluation Filed: 03/15/2020 10:30 AM Note Text: ANESTHESIOLOGY DAY OF SURGERY NOTE : 1950 Procedure(s) (LRB): ARTHROPLASTY REPLACE JOINT TOTAL KNEE (Right) Surgeon(s): Celina Garcia Estimated body mass index is 35.18 kg/m? as calculated from the following: Height as of 02/27/20: 172.7 cm (5' 8). Weight as of 02/27/20: 105 kg (231 lb 6.4 oz). Most recent hematocrit and potassium results: Hematocrit 42.8 02/27/2020 Potassium 3.7 02/27/2020 Relevant Problems CARDIO (+) Essential hypertension I - PHYSICAL EVALUATION AIRWAY Patient intubated: No. Tracheostomy tube not present Mallampati: I. TM distance: >3 FB. Mouth opening: adequate. Short neck: no. Thick neck: no DENTAL Dental findings: teeth intact. Additional exam findings: no II - ANESTHESIA PLAN ASA Score: 2 Anesthetic Plan: spinal The patient is not a current smoker. NPO Status: adequate Monitoring plan: standard ASA. Postoperative analgesic plan: parenteral or oral opioids, peripheral nerve block and per surgical service. Anesthetic Risks, Benefits, Alternatives, Personnel Discussed. Consent obtained from: patient. Patient / Surrogate agrees to blood products: blood products not planned Significant changes in the patient condition since the History and Physical, not otherwise documented in primary service progress note: no. Potential Anesthesia issues that may suggest increased risk of complications or contraindication to planned procedure: none. Vitals Value Taken Time BP 153/74 03/15/20 0748 Pulse 67 03/15/20 0748 Resp 16 03/15/20 0748 Temp 36.8 ?C (98.2 ?F) 03/15/20 0748 SpO2 99 % 03/15/20 0748 Facility-Administered Medications as of 03/15/2020 Medication Dose Route Frequency - lidocaine 10 mg/mL (1 %) 1-2 mg injection (XYLOCAINE) 0.1-0.2 mL INTRADERMAL PRN - lactated ringers infusion 5-30 mL/hr INTRAVENOUS CONTINUOUS - ceFAZolin iv piggyback 2 g in D5W (iso-osmotic) 100 mL (ANCEF) 2 g INTRAVENOUS ONCE - vancomycin 1.5 g in D5W 250 mL (VANCOCIN) 1.5 g INTRAVENOUS ONCE - tranexamic acid 1,000 mg in NaCl 0.9% 100 mL (CYKLOKAPRON) 1,000 mg INTRAVENOUS ONCE - tranexamic acid 1,000 mg in NaCl 0.9% 100 mL (CYKLOKAPRON) 1,000 mg INTRAVENOUS ONCE Outpatient Medications as of 03/15/2020 Medication Sig - pantoprazole DR (PROTONIX) 40 mg tablet Take 40 mg by mouth once daily. - furosemide (LASIX) 20 mg tablet Take 20 mg by mouth twice daily. - enalapril (VASOTEC) 5 mg tablet Take 5 mg by mouth once daily. - rosuvastatin (CRESTOR) 20 mg tablet Take 20 mg by mouth daily at bedtime. - potassium chloride SR (MICRO-K) 10 mEq CR capsule Take 10 mEq by mouth twice daily. - Ascorbic Acid (VITAMIN C) chew Take 500 mg by mouth once daily. - metaxalone (SKELAXIN) 800 mg tablet Take 800 mg by mouth twice daily as needed for Pain. - Ipratropium [place] (ATROVENT) 0.03 % nasal spray Use 2 Sprays in the nose every 12 hours. - green tea leaf extract 150 mg cap Take by mouth once daily. - Flaxseed Oil oil 1,300 mg once daily. - cholecalciferol, vitamin D3, (VITAMIN D3 ORAL) Take 2,000 Units by mouth once daily. - multivit-min/iron/foli c acid/K (ADULTS MULTIVITAMIN ORAL) Take by mouth once daily. - COQ10, UBIQUINOL, ORAL Take 200 mg by mouth once daily. - omega-3/dha/epa/fish oil (FISH OIL HIGH POTENCY ORAL) Take 200 mg by mouth once daily. - vitamin E, dl,tocopheryl acet, (VITAMIN E, DL, ACETATE,) 400 unit capsule Take 400 Units by mouth once daily. - glucosamine HCl/chondroitin gerard (GLUCOSAMINE-CHONDROIT IN ORAL) Take by mouth once daily. 500mg- 250mg dosage I have interviewed and examined the patient. I have reviewed the medical record and/or the pre-anesthesia evaluation, pertinent labs, and test results. This contains updated information obtained within 48 hours of Surgery/Procedure. SIGNATURE: Alberto Dowell MD PATIENT NAME: Abdifatah Macario DATE: March 15, 2020 TIME: 10:30 AM CSN: [id number] [facility] CONSULTon 03-15-2020 CONSULT HNO ID: [id number] Author: Amari Maldonado Service: General Internal Medicine Author Type: Physician Type: Consults Filed: 03/15/2020 6:56 PM Note Text: CONSULT NOTE - INTERNAL MEDICINE PATIENT NAME: Abdifatah Macario SERVICE DATE: 03/15/2020 SERVICE TIME: 6:52 PM ADMITTING PHYSICIAN: Celina Garcia CC: Post operative medical management; pt is s/p right TKR HPI: His pain has not been controlled well after the surgery. He has ambulated in the hallway after surgery, denies having any dizziness/palpitations /dyspnea with activities. Denies any postoperative nausea or vomiting. He denies any recent fever or chills, skin infections or any upper respiratory infections. 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 He does not smoke. Alcohol intake is very infrequent PAST MEDICAL HISTORY Diagnosis Date - Breast cancer (HCC) - HTN (hypertension) - Mixed hyperlipidemia PAST SURGICAL HISTORY Procedure Laterality Date - ANKLE SURGERY HX Left 07/1999 removal of hardware - KNEE ARTHROSCOPY/SURGERY Right 2015 - OPEN RX ANKLE DISLOCATN+FIXATN Left 1998 - REPAIR UMBILICAL HERNIA 2013 Current Facility-Administered Medications Medication Dose Route Frequency - atorvastatin 80 mg tab(s) (LIPITOR) 80 mg ORAL AT BEDTIME - enalapril 5 mg tab(s) (VASOTEC) 5 mg ORAL DAILY - furosemide 20 mg tab(s) (LASIX) 20 mg ORAL BID / - potassium chloride ER 10 mEq tab(s) (K-DUR, KLOR-CON) 10 mEq ORAL BID - cyclobenzaprine 5 mg tab(s) (FLEXERIL) 5 mg ORAL BID PRN - [START ON 03/16/2020] aspirin, enteric coated 81 mg tab(s) 81 mg ORAL BID - NaCl 0.9% iv infusion 75 mL/hr INTRAVENOUS CONTINUOUS - sodium chloride 0.9 % (flush) 2-10 mL (BD POSIFLUSH) 2-10 mL INTRAVENOUS q 12 H - acetaminophen 1,000 mg tab(s) (TYLENOL) 1,000 mg ORAL q 8 H - keTORolac 15 mg injection (TORADOL) 15 mg INTRAVENOUS q 6 H - ondansetron 4 mg tab(s) (ZOFRAN) 4 mg ORAL q 6 H PRN Or - ondansetron (PF) 4 mg injection (ZOFRAN) 4 mg INTRAVENOUS q 6 H PRN - [START ON 03/16/2020] magnesium hydroxide 400 mg/5 mL 30 mL (MOM) 30 mL ORAL DAILY PRN - [START ON 03/17/2020] bisacodyl EC 10 mg tab(s) (DULCOLAX) 10 mg ORAL DAILY - aluminum-magnesium hydroxide-simethicone 200-200-20 mg/5 mL 30 mL (MAALOX,MYLANTA,MAG-AL PLUS) 30 mL ORAL q 2 H PRN - [START ON 03/16/2020] ascorbic acid (vitamin C) 500 mg tab(s) (VITAMIN C) 500 mg ORAL BID w MEALS - [START ON 03/16/2020] docusate sodium 100 mg cap(s) (COLACE) 100 mg ORAL BID - ceFAZolin iv piggyback 2 g in D5W (iso-osmotic) 100 mL (ANCEF) 2 g INTRAVENOUS q 8 HR - oxyCODONE IR 5-10 mg tab(s) (ROXICODONE) 5-10 mg ORAL q 3 H PRN - HYDROmorphone 1-2 mg injection (DILAUDID) 1-2 mg INTRAVENOUS q 3 H PRN Social History Tobacco Use - Smoking status: Never Smoker - Smokeless tobacco: Never Used Substance Use Topics - Alcohol use: Not on file - Drug use: Not on file ALLERGIES No Known Allergies No family history on file. ROS: Patient denies any recent ENT or eye complaints, CP, palpitation, cough, wheeze, dizziness, dyspnea, abdominal pain, nausea, vomiting, urinary or bowel changes, rash or increased ankle swelling. Rest of the review of system is negative except as noted. OBJECTIVE PHYSICAL EXAM: Patient Vitals for the past 24 hrs: BP Temp Temp src Pulse Resp SpO2 Height Weight 03/15/20 1702 147/92 36.4 ?C (97.5 ?F) Oral 73 16 99 % ? ? 03/15/20 1501 145/86 ? Oral (!) 57 17 100 % ? ? 03/15/20 1407 ? 172.7 cm (5' 8) 104.8 kg (231 lb) 03/15/20 1400 104/70 36.1 ?C (97 ?F) Temporal 60 19 100 % ? ? 03/15/20 1345 106/71 ? ? 61 15 100 % ? ? 03/15/20 1330 88/66 ? ? 61 15 96 % ? ? 03/15/20 1316 97/67 36.1 ?C (97 ?F) Temporal 63 22 96 % ? ? 03/15/20 1116 97/67 36.1 ?C (97 ?F) Temporal 64 22 96 % ? ? 03/15/20 1040 137/92 ? ? 72 18 99 % ? ? 03/15/20 1035 146/83 ? ? 76 18 100 % ? ? 03/15/20 0748 153/74 36.8 ?C (98.2 ?F) Temporal Art 67 16 99 % ? ? Body mass index is 35.12 kg/m?. GENERAL: no distress. AANDOX3 SKIN: normal turgor HEENT: conjunctiva is pink, no icterus; m/m moist, no sinus tenderness NECK: no LN LUNGS: Lungs clear to auscultation, Fair air entry. CARDIAC: normal S1 and S2; no rubs or gallops ABDOMEN: Abdomen soft, non-tender. BS normal. 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 Status post right TKR: Pain management per orthopedic service. Discussed with patient regarding therapy and follow-up labs in the (more content not included)... [facility] NURSING PROGon 03-15-2020 NURSING PROG HNO ID: [id number] Author: Joaquina (Rn) JAVIER Gentile Service: ? Author Type: Registered Nurse Type: Nursing Progress Note Filed: 03/15/2020 2:30 PM Note Text: Nursing Progress Note Patient Name: Abdifatah Macario Patient Location: [address]/[facility] __ Transfer Note: Patient transferred into room/unit 523-2 in stable condition. Actions taken: Patient oriented to 5D unit policies and procedures. Educated on falls risk, falls precautions, and use of call bui prior to getting OOB. Patient resting in bed. All needs met at this time. This note was completed by: Joaquina Gentile RN [facility] OPERATIVE NOon 03-15-2020 OPERATIVE NO HNO ID: [id number] Author: Celina Garcia Service: Orthopaedic Surgery Author Type: Physician Type: Operative Report Filed: 03/15/2020 2:01 PM Note Text: OPERATIVE/PROCEDURE REPORT LOG ID: [id number] Surgery/Procedure Date: 03/15/2020 Incision/Procedure Start Time: 11:25 AM Incision Close/Procedure End Time: 1:06 PM Surgeon(s) and House Worker General(s): Surgeon(s) and Role: * Celina Garcia - Primary * Ulices Soni DO - Fellow 1st assist Physician House Worker General: Jayme Moncada (Pradip) Geraldo no qualified resident available to assist Procedure(s): Procedure(s) (LRB): ARTHROPLASTY REPLACE JOINT TOTAL KNEE (Right) Anesthesia: Spinal Findings: The medial compartment was severely eburnated with bone loss on the posterior medial tibia and posterior medial femoral condyles Preop Diagnosis: Pre-Op Diagnosis Codes: * Primary osteoarthritis of right knee [M17.11] Postop Diagnosis: Pre-Op Diagnosis Codes: * Primary osteoarthritis of right knee [M17.11] IMPLANTS: Implant Name Type Inv. Item Serial No. Premix Operator Concentrate Lot No. LRB Model Num No. Used CEMENT SIMPLEX P BONE RADIOPAQUE FULL DOSE STERILE - [id number] Cement / Putty CEMENT SIMPLEX P BONE RADIOPAQUE FULL DOSE STERILE STRY/[employer] [id number] Right [id number] COMPONENT PERSONA 12 STANDARD COCR FEMORAL CRUCIATE RETAIN - [id number] Joint - Knee COMPONENT PERSONA 12 STANDARD COCR FEMORAL CRUCIATE RETAIN [employer] [id number] Right [id number] 1 BASEPLATE PERSONA 5D H TIVANIUM TIBIAL CEMENTED STEM KNEE RIGHT - [id number] Joint BASEPLATE PERSONA 5D H TIVANIUM TIBIAL CEMENTED STEM KNEE RIGHT [employer] [id number] Right [id number] 1 COMPONENT 35MM ALL POLY PATELLAR PSN - [id number] Joint - Knee COMPONENT 35MM ALL POLY PATELLAR PSN [employer] [id number] Right [id number] 1 EXTENSION PERSONA 14MM TAPER 30+ MM STEM KNEE TIBIA - [id number] Joint EXTENSION PERSONA 14MM TAPER 30+ MM STEM KNEE TIBIA [employer] [id number] Right [id number] 1 Persona Imp Knee Surf [facility] R 11 12/ [id number] Implant [employer] [id number] Right [phone] 1 CEMENT SIMPLEX P BONE RADIOPAQUE FULL DOSE STERILE - [id number] Cement / Putty CEMENT SIMPLEX P BONE RADIOPAQUE FULL DOSE STERILE [employer]Y/[employer] [id number] Right [id number] PROBLEM LIST: 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 Breast Cancer in Male (Hcc) Essential Hypertension Hyperlipidemia Patent Foramen Ovale Class 2 Obesity Due to Excess Calories With Body Mass Index (Bmi) of 35.0 to 35.9 in Adult Primary Osteoarthritis of Right Knee OPERATIVE INDICATIONS: The patient has a long history of progressiverightknee pain, arthritis, and degeneration. They have developed varus deformity in the right knee from predominantly medial wear and bone loss. Non-operative treatment and Physical Therapy have been attempted , but have not improved or controlled the symptoms and pain that occurs during normal daily activities. Knee motion has also become limited and is restricting the patient. righttotal knee arthroplasty was recommended. The risks, benefits and potential complications of the arthroplasty surgery were discussed with the patient in detail. Specific details of the surgical procedure, hospitalization, recovery, rehabilitation, and long-term precautions were also presented. Pre-operative teaching was provided. Implant/prosthesis selection was outlined, and the many options available were explained; the final choice will be made at the time of the procedure to match the anatomy and condition of the bone, ligaments, tendons, and muscles. The patient was seen by [facility] Medicine for pre-operative optimization, and risk assessment. Carmencita-operative blood management and the potential for blood transfusion were discussed with risks and options clearly outlined. Understanding of all topics was conveyed to me by the patient pre-operatively, and patient consent was given to proceed with theright total knee replacement. OPERATIVE PROCEDURE: The patient was identified and brought into the Operating Room by the anesthesia and nursing teams. A huddle was performed with the patient's participation to confirm name, date of , surgery/site of surgery, and allergies. Anesthesia was successfully performed. The patient was then positioned supine on the operating room table, and all bony prominences were padded. Intravenous antibiotic prophylaxis dosing was confirmed. A tourniquet was applied to the right upper thigh. A full knee exam was done after anesthesia was in full effect. The operative leg was prepped and draped in the usual sterile fashion. A surgical time-out was performed immediately preceding the incision with all personnel in the operating room; the patient identity was again confirmed, the correct knee-surgical site and extremity were identified and confirmed, X-rays were reviewed, and availability of the approp (more content not included)... [facility] THERAPY [facility] 03-15-2020 THERAPY NT HNO ID: [id number] Author: Praveena Mullins Service: Physical Therapy Author Type: Physical Therapist Type: Therapy (PT/OT/Speech/Resp) Filed: 03/15/2020 5:05 PM Note Text: Physical Therapy Evaluation SERVICE DATE: 03/15/2020 SERVICE TIME: 1630 to 1653 ROOM: [id number] Recommended Discharge Disposition: Outpatient Physical Therapy Recommended Discharge Disposition Comments: Patient has first appointment scheduled for 03/18 Anticipated Discharge Needs: Physical Assist at Home Physical Assist at Home for: Cleaning;Laundry;Meals ;Stairs;Shopping;Trans portation Recommended Discharge Equipment: No equipment needs anticipated PT 6 Clicks Score: 22 Precautions/Activity Restrictions: Total Knee Replacement;Weight Bearing Restrictions;Lines/Tub es/Drains Extremity With Weight Bearing Restricted: Right Lower Extremity Right Lower Extremity Weight Bearing Status: WBAT Current Hospital Course: 69 yo male admitted with OA R knee, s/p R TKR Reason for Hospital Admission: s/p R TKR Relevant Past Medical History: brease CA, HTN, L ankle sx, knee scope Response to Therapy Interventions: Good participation in activities, On-track to achieve discharge goals, Pain Continue skilled needs due to: Functional mobility/skill impairments Physical Therapy Problem List: Edema;Pain;Decreased Activity Tolerance;Decreased Range Of Motion;Decreased Strength;Functional Mobility Impairment Treatment Interventions: Education;Joint Mobility;Strengthening ;Functional Mobility Training Plan for next visit: Crutch training, Gait training, Exercise instruction/handout, Sit to Stand Transfers, Stairs training, Walker Training, Edema management Home Environment Patient Lives With: Spouse Assistance Available: 24 Hour Entry To Home: Stairs;With Rail Number Of Stairs Into Home: 3 Number Of Stairs To Bed/Bath: Flight Stairs to Bed/Bath with: Unilateral Rail Tub/Shower Type: Tub shower Laundry: will complete Equipment Owned: Cane;Crutch(es);Wheele d Walker;Long Handled Shoe Horn Prior Functional Level: Within Functional Limits Prior Functional Level Comments: I with ADL's/IADL's, + driving, no AD for ambulation Patient Report: I was doing these exercises pre-hab. CURRENT FUNCTIONAL STATUS: Most recent performance Current Functional Mobility Assist Level Additional Information Rolling Supine to Sit Stand By Assistance Sit to Supine Scooting Supervision Sit to Stand Stand By Assistance Stand to Sit Stand By Assistance;Additional Information with verbal cues for safe technique Bed to Chair Toilet/Commode Gait Contact Guard Assistance Gait Device: Wheeled Walker Gait Distance (feet): 60' Stairs Curb Step Car Transfer Blank morton indicate activity not attempted Gait Deviations Right Lower Extremity: Heel strike during initial stance decreased;Push off during terminal stance decreased;Stance time decreased;Weight bearing decreased Gait Deviations Left Lower Extremity: Step length decreased General Deviations/Observation s: Antalgic gait;Alexandra decreased -HLM: 7: Walk 25 feet or more Learning/Educational Needs: Discharge Plan;Functional Activities/Mobility;Pa in Management;Plan of Care;Rehabilitation Techniques and Procedures;Safety Goals for Plan of Care: Patient /Caregiver Goals: Go Home;Walk Goals: Patient will demonstrate progress with functional mobility to allow safe discharge to home with available support and/or physical assistance. Ambulate up and down steps with: Stand By Assistance Number of steps: 13 Device: Crutch(es);Rail Rehab Potential: Good Patient will be discontinued from Physical Therapy when no further skilled needs are identified in this setting. PLAN: Treatment Frequency (times per week): 7 Current admission Plan of Care developed with: Patient TREATMENT INTERVENTIONS: Therapy Diagnosis: Reduced mobility-other;Unstead iness on feet Interventions Provided: Evaluation;Therapeutic Exercise (19035) $ Evaluation-Low (21070) Billed Units: 1 unit Therapeutic Exercise (37447) Treatment Minutes: 8 $ Therapeutic Exercise (23285) Billed Units: 1 unit Training AND education provided in: Anatomy and impact on deficits, Assistive device use, Bed mobility, Benefits of in-hospital mobility, Discharge planning, Disease specific education, Edema management, Exercise program, Gait pattern, reduction of deviations, Handout issued, Modalities, Positioning, Precautions/restrictio ns, Stair navigation, Transfers The following therapeutic skills were used: Activity dosing, Cues for sequencing/proper technique for activity, Cuing verbal, Teach-back for education, Physical assist Total Timed Code Treatment Minutes: 8 Total Treatment Time (minutes): 23 Please see discipline specific clinical documentation flowsheet for complete details for this therapy evaluation/treatment. SIGNATURE: Praveena Mullins, PT PATIENT NAME: Abdifatah Macario (more content not included)... Normal [facility] Confirm Blood Typeon 021 ABO/RH(D) Positive [facility] Comment on above: Performed By: #### C ONABO ####[facility] [phone] Type and SCR (30D)on 021 ABO/RH(D) Positive [facility] Comment on above: Performed By: #### T SCR30 #### [facility] [address] [address] HOSPon 02-16-2020 HOSP Patient:Howard Macario MRN: Height:5' 8(1.727 m) Weight:231 lb 6.4 oz (104.962 kg) Outpatient Medications as of 03/15/20: mupirocin (BACTROBAN) 2 % ointment Ascorbic Acid (VITAMIN C) chew metaxalone (SKELAXIN) [address] (PROTONIX) 40 mg tablet furosemide (LASIX) 20 mg tablet enalapril (VASOTEC) 5 mg tablet rosuvastatin (CRESTOR) 20 mg tablet potassium chloride SR (MICRO-K) 10 mEq CR capsule Ipratropium Paris (ATROVENT) 0.03 % nasal spray green tea leaf extract 150 mg cap Flaxseed Oil oil cholecalciferol, vitamin D3, (VITAMIN D3 ORAL) multivit-min/iron/foli c acid/K (ADULTS MULTIVITAMIN ORAL) COQ10, UBIQUINOL, ORAL omega-3/dha/epa/fish oil (FISH OIL HIGH POTENCY ORAL) vitamin E, dl,tocopheryl acet, (VITAMIN E, DL, ACETATE,) 400 unit capsule glucosamine HCl/chondroitin gerard (GLUCOSAMINE-CHONDROIT IN ORAL) Admission/Clinic Administered Medications as of 03/15/20: lidocaine 10 mg/mL (1 %) 1-2 mg injection (XYLOCAINE) lactated ringers infusion ceFAZolin iv piggyback 2 g in D5W (iso-osmotic) 100 mL (ANCEF) tranexamic acid 1,000 mg in NaCl 0.9% 100 mL (CYKLOKAPRON) Problem List: 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 [K22.70] Breast cancer in male (HCC) [C50.929] Essential hypertension [I10] Hyperlipidemia [E78.5] Patent foramen ovale [Q21.1] Class 2 obesity due to excess calories with body mass index (BMI) of 35.0 to 35.9 in adult [E66.09, Z68.35] Primary osteoarthritis of right knee [M17.11] Allergies: No Known Allergies Date Verified:03/15/20 Lab Values Lab Value Units Date High Low POTA* 3.7 mmol/L 02/27/2020 5.1 3.7 SHUN* 42.8 % 02/27/2020 51.0 39.0 Progress Notes (PRE ANES LEOPOLDO): Crystal Tamez Ma 02/27/2020 9:51 AM Signed Most recent cardiac OV note scanned into [email or web address]. Crystal Tamez Ma [facility] XR Knee - bilateral 4 Viewso n 11-12-2019 IMPRESSION: Severe bilateral medial compartmental osteoarthritis, right greater than left. Wool Batting Worker: SORAIDA Transcribe Date/Time: Nov 12 2019 8:17A Dictated by : TAMMY ABDULLAHI DO This examination was interpreted and the report reviewed and electronically signed by: HAMILTON BOURGEOIS MD on Nov 12 2019 11:27AM [facility] DIVISION OF RADIOLOGY * * *Final Report* * * DATE OF EXAM: Nov 12 2019 8:00AM CCX 5618 - XR KNEE 4V AP/PA/LAT/MERCH STU / PROCEDURE REASON: Pain * * * * Physician Interpretation * * * * EXAMINATION: XR KNEE 4V AP/PA/LAT/MERCH STU PATIENT/TECHNOLOGIST PROVIDED HISTORY: BILATERAL KNEE PAIN CLINICAL INFORMATION: 69 years old Male with Pain TECHNIQUE: XR KNEE 4V AP/PA/LAT/MERCH STU Laterality: BILATERAL Number of different views (projections): 4 EACH COMPARISON: None available RESULT: No acute fracture or dislocation. Severe bilateral medial compartmental joint space narrowing, right greater than left, with underlying reactive subchondral sclerosis and small marginal osteophytes. The patellofemoral and lateral compartments are relatively maintained. Chondrocalcinosis. DIVISION OF RADIOLOGY Provider, Cristina Sonam Dan - 11/12/2019 * * *Final Report* * * DATE OF EXAM: Nov 12 2019 8:00AM CCX 5618 - XR KNEE 4V AP/PA/LAT/MERCH STU / PROCEDURE REASON: Pain * * * * Physician Interpretation * * * * EXAMINATION: XR KNEE 4V AP/PA/LAT/MERCH STU PATIENT/TECHNOLOGIST PROVIDED HISTORY: BILATERAL KNEE PAIN CLINICAL INFORMATION: 69 years old Male with Pain TECHNIQUE: XR KNEE 4V AP/PA/LAT/MERCH STU Laterality: BILATERAL Number of different views (projections): 4 EACH COMPARISON: None available RESULT: No acute fracture or dislocation. Severe bilateral medial compartmental joint space narrowing, right greater than left, with underlying reactive subchondral sclerosis and small marginal osteophytes. The patellofemoral and lateral compartments are relatively maintained. Chondrocalcinosis. IMPRESSION IMPRESSION: Severe bilateral medial compartmental osteoarthritis, right greater than left. 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 Transcribe Date/Time: Nov 12 2019 8:17A Dictated by : TAMMY ABDULLAHI DO This examination was interpreted and the report reviewed and electronically signed by: HAMILTON BOURGEOIS MD on Nov 12 2019 11:27AM EST [facility] Radiology Study observation (narrative) [facility] XR Knee - bilateral 4 ViewsO rdered By: Ccf Provider on 11-12-2019 [facility] ANES Elisabeth 04-07-2019 ANES POST HNO ID: [id number] Author: Wilver Shelton Service: Anesthesiology Author Type: Anesthesiologist Type: Anesthesia PostOp Filed: 04/07/2019 8:36 AM Note Text: POST ANESTHESIA EVALUATION NOTE SERVICE DATE: 04/07/2019 SERVICE TIME: 8:36 AM : 1950 Vitals: 04/07/19 0706 04/07/19 0813 Temp: 36.6 ?C (97.9 ?F) 36.8 ?C (98.3 ?F) 04/07/19 0706 04/07/19 0813 04/07/19 0826 BP: 147/92 119/72 111/66 04/07/19 0706 04/07/19 0813 04/07/19 0826 Pulse: 72 73 72 04/07/19 0706 04/07/19 0813 04/07/19 0826 Resp: 16 18 19 04/07/19 0706 04/07/19 0813 04/07/19 0826 SpO2: 95% 95% 95% Validated Vital Signs: Yes POST ANES STATUS: No apparent anesthetic complications. The patient is appropriately hydrated with stable respiratory and cardiovascular status. Patient has safe and adequate airway control. The patient has appropriate pain relief and no significant post operative nausea or vomiting. The patient has achieved baseline mental status. Intra-Operative Events: No Significant Anesthesia Events Further assessment by Anesthesia Service: None Other Remarks: SIGNATURE: Wilver Shelton MD PATIENT NAME: Abdifatah Macario DATE: April 07, 2019 TIME: 8:36 AM PAGER/CONTACT #: [phone] [facility] ANES PREOPon 04-07-2019 ANES PREOP HNO ID: [id number] Author: Wilver Shelton Service: Anesthesiology Author Type: Anesthesiologist Type: Anesthesia PreOp Filed: 04/07/2019 7:28 AM Note Text: ANESTHESIOLOGY DAY OF SURGERY NOTE SERVICE DATE: 04/07/2019 SERVICE TIME: 7:25 AM : 1950 Procedure(s) (LRB): BLEPHAROPLASTY UPPER MEDICALLY NECESSARY (Bilateral) Surgeon(s): Glen Kelly Estimated body mass index is 34.67 kg/m? as calculated from the following: Height as of this encounter: 172.7 cm (5' 8). Weight as of this encounter: 103.4 kg (228 lb). Most recent hematocrit and potassium results: No results found for this basename: HCT,HEMATOCRIT,K,POTAS SIUM ANES DOS/PREOP NOTE: Vitals: 04/07/19 0706 BP: 147/92 Pulse: 72 Resp: 16 Temp: 36.6 ?C (97.9 ?F) TempSrc: Temporal SpO2: 95% Weight: 103.4 kg (228 lb) Height: 172.7 cm (5' 8) There is no problem list on file for this patient. No past medical history on file. No past surgical history on file. No family history on file. Social History: Social History Tobacco Use - Smoking status: Not on file Substance Use Topics - Alcohol use: Not on file - Drug use: Not on file No current facility-administered medications on file prior to encounter. Current Outpatient Medications on File Prior to Encounter Medication Sig - Dextromethorphan-guaiF ENesin (MUCINEX DM) 60-1,200 mg tab ER 12 hr Take 1 tablet by mouth every 12 hours as needed. - Ascorbic Acid (VITAMIN C) chew Take 500 mg by mouth once daily. - metaxalone (SKELAXIN) 800 mg tablet Take 800 mg by mouth twice daily as needed for Pain. - pantoprazole DR (PROTONIX) 40 mg tablet Take 40 mg by mouth once daily. - furosemide (LASIX) 20 mg tablet Take 20 mg by mouth twice daily. - enalapril (VASOTEC) 5 mg tablet Take 5 mg by mouth once daily. - rosuvastatin (CRESTOR) 20 mg tablet Take 20 mg by mouth daily at bedtime. - potassium chloride SR (MICRO-K) 10 mEq CR capsule Take 10 mEq by mouth twice daily. - Ipratropium Paris (ATROVENT) 0.03 % nasal spray Use 2 Sprays in the nose every 12 hours. - green tea leaf extract 150 mg cap Take by mouth once daily. - cholecalciferol, vitamin D3, (VITAMIN D3 ORAL) Take 2,000 Units by mouth once daily. - multivit-min/iron/foli c acid/K (ADULTS MULTIVITAMIN ORAL) Take by mouth once daily. - COQ10, UBIQUINOL, ORAL Take 200 mg by mouth once daily. - vitamin E, dl,tocopheryl acet, (VITAMIN E, DL, ACETATE,) 400 unit capsule Take 400 Units by mouth once daily. - glucosamine HCl/chondroitin gerard (GLUCOSAMINE-CHONDROIT IN ORAL) Take by mouth once daily. 500mg- 250mg dosage - Flaxseed Oil oil 1,300 mg once daily. - tamoxifen (NOLVADEX) 20 mg tablet Take 20 mg by mouth once daily. - omega-3/dha/epa/fish oil (FISH OIL HIGH POTENCY ORAL) Take 200 mg by mouth once daily. Current Facility-Administered Medications Medication Dose Route Frequency Provider Last Rate Last Dose - lactated ringers infusion 30 mL/hr INTRAVENOUS CONTINUOUS Glen Hendricks Locastro 30 mL/hr at 04/07/19 07 30 mL/hr at 04/07/19704 Allergies: ALLERGIES No Known Allergies DOS EXAM: Adequate NPO status: Yes Anesthetic risks, benefits, alternatives, personnel and consent discussed: Yes Patient agrees to proceed: Yes Previous Anesthesia: No history of adverse event. Airway Assessment: MP 2; Neck ROM: Full ROM without neurologic symptoms; Airway Evaluation: No significant abnormalities Symptoms of Sleep Apnea: Age over 50 (68 year old), Neck circumference > 15.75 inches and Male gender Dentition: Teeth intact Additional Physical Exam: Lungs: Patient health status unchanged since recent history and physical. See history and physical for exam findings. Cardiac: Patient health status unchanged since recent history and physical. See history and physical for exam findings. Additional Pertinent Findings: N/A Blood Products: Not anticipated for this procedure. Anesthetic Plan: MAC with Sedation, GA backup Pain Management Plan: Parenteral or Oral ASA Class: 3 Other Medical Problems: None Chronic Beta Bryan medication administered within 24 hours: N/A I have interviewed and examined the patient. I have reviewed the medical record and/or the pre-anesthesia evaluation, pertinent labs, and test results. Significant changes in the patient's condition since the History and Physical, not otherwise documented in primary service progress notes: No This contains updated information obtained within 48 hours of Surgery/Procedure. SIGNATURE: Wilver Shelton MD PATIENT NAME: Abdifatah Macario DATE: April 07, 2019 TIME: 7:24 AM CSN: [id number] [facility] HISTORY PHYSICALon 0 HISTORY PHYSICAL HNO ID: [id number] Author: Glen Kelly Service: Ophthalmology Author Type: Physician Type: HANDP Filed: 04/07/2019 7:32 AM Note Text: UPDATED HISTORY AND PHYSICAL EXAMINATION SERVICE DATE: 04/07/2019 SERVICE TIME: 7:31 AM PHYSICAL EXAM MUST BE COMPLETED ON ADMISSION The History and Physical (completed in the past 30 days) has been reviewed and the patient has been examined. The contents accurately reflect the patient's condition with the following additions or revisions since the HANDP was completed. Examination indicates no changes. This HANDP can be found in the scanned documents dated 03/14/2019. SIGNATURE: Glen Kelly MD PATIENT NAME: Abdifatah Macario DATE: April 07, 2019 TIME: 7:31 AM PAGER: [facility] OPERATIVE NOon 04-07-2019 OPERATIVE NO HNO ID: [id number] Author: Glen Kelly Service: Ophthalmology Author Type: Physician Type: Operative Report Filed: 04/07/2019 8:11 AM Note Text: OPERATIVE/PROCEDURE REPORT OPHTHAMOLOGY LOG ID: [id number] Surgery/Procedure Date: 04/07/2019 Incision/Procedure Start Time: 7:44 AM Incision Close/Procedure End Time: 8:08 AM Surgeon(s)/Procedurali st(s) and House Worker General(s): Surgeon(s) and Role: * Glen Kelly - Primary * Eladio Quiñonez - Resident - Assisting Procedure(s): Procedure(s) (LRB): BLEPHAROPLASTY UPPER MEDICALLY NECESSARY (Bilateral) Preoperative Diagnosis: Dermatochalasis of both upper eyelids [H02.831, H02.834] Postoperative Diagnos same Operative Indications: The patient has a history of upper eyelid skin blocking their vision resulting in a visually significant scotoma of greater than 25 degrees which improves on eyelid taping. The skin hangs over the lid margins resulting in limited peripheral vision and difficulty with driving, along with fatigue with reading. Based on their symptoms, the surgery was planned. Blurry vision, fatigue with reading Anesthesia: Monitored Anesthesia Care Procedure Details: The patient was brought into the operating room, and placed under adequate local anesthesia following demarcation of the upper eyelids in the sitting position. A skin incision was made with a #15 blade, and the skin muscle flap was dissected from the temporal to nasal direction using unipolar cautery. Bleeding was controlled with bipolar cautery. Middle and medial fat pads were debulked. Several dog-ear adjustments were made along the medial aspect of the upper lid to achieve a good contour to the crease. Once this was done, the incision was closed using a combination of interrupted and running suture of 6-0 Prolene. A similar procedure was carried out on the opposite upper eyelid. Antibiotic ointment and ice compresses were placed over the eyes at the end of the case. The patient was returned to the recovery room in satisfactory condition. Estimated Blood Loss: Minimal unless noted here. Specimens: * No specimens in log * Implantable Devices: * No implants in log * Drains: None unless noted here. Complications: None I performed the entire procedure. SIGNATURE: Glen Kelly MD PATIENT NAME: Abdifatah Macario DATE: April 07, 2019 TIME: 8:10 AM PAGER/CONTACT #: [facility] Patient:Howard Macario MRN: Height:5' 8(1.727 m) Weight:228 lb (103.42 kg) Outpatient Medications as of 04/07/19: Dextromethorphan-guaiF ENesin (MUCINEX DM) 60-1,200 mg tab ER 12 hr Ascorbic Acid (VITAMIN C) chew metaxalone (SKELAXIN) [address] (PROTONIX) 40 mg tablet furosemide (LASIX) 20 mg tablet enalapril (VASOTEC) 5 mg tablet rosuvastatin (CRESTOR) 20 mg tablet potassium chloride SR (MICRO-K) 10 mEq CR capsule Ipratropium [place] (ATROVENT) 0.03 % nasal spray green tea leaf extract 150 mg cap Flaxseed Oil oil tamoxifen (NOLVADEX) 20 mg tablet cholecalciferol, vitamin D3, (VITAMIN D3 ORAL) multivit-min/iron/foli c acid/K (ADULTS MULTIVITAMIN ORAL) COQ10, UBIQUINOL, ORAL omega-3/dha/epa/fish oil (FISH OIL HIGH POTENCY ORAL) vitamin E, dl,tocopheryl acet, (VITAMIN E, DL, ACETATE,) 400 unit capsule glucosamine HCl/chondroitin gerard (GLUCOSAMINE-CHONDROIT IN ORAL) Admission/Clinic Administered Medications as of 04/07/19: lactated ringers infusion Problem List: No problem list on file for this patient. Allergies: No Known Allergies Date Verified:04/07/19 Lab Values No results within the last 30 days for the following basenames: K,HCT No progress notes entered within the past 30 days Normal [facility] Office Visiton 07-18-2016 Documentation of current medications (procedure) Done Invalid Interpretation Code DZZOM Work Phone: [phone] Fall risk assessment No Invalid Interpretation Code DZZOM Work Phone: [phone] Clinical Lists Update: Prel[employer] subassemblies wirer 06-14-2016 Left ventricular Ejection fraction 55 % Invalid Interpretation Code DZZOM Work Phone: [phone] Office Visiton 05-17-2016 Documentation of current medications (procedure) Done Invalid Interpretation Code DZZOM Work Phone: [phone] Fall risk assessment No Invalid Interpretation Code DZZOM Work Phone: [phone] Tobacco use CPHS Never smoker Invalid Interpretation Code DZZOM Work Phone: [phone] Replaced Document: [employer] E CG Observationson 05-17-2016 electrocardiogram interpretation Sinus Rhythm -RSR(V1) -nondiagnostic. PROBABLY NORMAL Invalid Interpretation Code DZZOM Work Phone: [phone] GE use only - for [employer] import when terms are not otherwise specified 411 ms Invalid Interpretation Code DZZOM Work Phone: [phone] P wave axis, electrocardiogram 37 deg Invalid Interpretation Code [facility]ZZOM Work Phone: [phone] TN interval, electrocardiogram 172 ms Invalid Interpretation Code [facility] Work Phone: [phone] Pulse (Heart Rate) 85 /min Invalid Interpretation Code [facility] Work Phone: [phone] QRS axis, electrocardiogram -11 deg Invalid Interpretation Code [facility] Work Phone: [phone] QRS duration, electrocardiogram 100 ms Invalid Interpretation Code [facility] Work Phone: [phone] QT interval, electrocardiogram new path ms Invalid Interpretation Code [facility] Work Phone: [phone] T wave axis, electrocardiogram -1 deg Invalid Interpretation Code [facility] Work Phone: [phone] Vital Signs Date Time Vital Sign Value Performing Clinician Faci [facility] 12-11-2024 09:57-0400 Body height 172.7 cm Juan Velasco MD Work Phone: [facility] 12-11-2024 09:57-0400 Body mass index (BMI) [Ratio] 34.97 kg/m2 Juan Velasco MD Work Phone: [facility] 12-11-2024 09:57-0400 Body weight 104.33 kg Juan Velasco MD Work Phone: [facility] 12-03-2024 09:17-0400 Body height 172.[address] Danial Dempsey MD Work Phone: [facility] 12-03-2024 09:17-0400 Body mass index (BMI) [Ratio] 36.9 kg/m2 Dr. Danial Dempsey MD Work Phone: [facility] 12-03-2024 09:17-0400 Body weight 110.[address] Danial Dempsey MD Work Phone: [facility] 12-03-2024 09:17-0400 Diastolic blood pressure 70 mm[Hg] Dr. Danial Dempsey MD Work Phone: [facility] 12-03-2024 09:17-0400 Heart rate 69 /min Dr. Danial Dempsey MD Work Phone: [facility] 12-03-2024 09:17-0400 Respiratory rate 18 /min Dr. Danial Dempsey MD Work Phone: [facility] 12-03-2024 09:17-0400 Systolic blood pressure 119 mm[Hg] Dr. Danial Dempsey MD Work Phone: [facility] 09-13-2024 11:38-0400 Diastolic blood pressure 85 mm[Hg] Danial Dempsey MD Work Phone: [facility] 09-13-2024 11:38-0400 Heart rate 60 /min Danial Dempsey MD Work Phone: [facility] 09-13-2024 11:38-0400 Respiratory rate 18 /min Danial Dempsey MD Work Phone: [facility] 09-13-2024 11:38-0400 SaO2% (BldA) [Mass fraction] 97 % Danial Dempsey MD Work Phone: [facility] 09-13-2024 11:38-0400 Systolic blood pressure 141 mm[Hg] Danial Dempsey MD Work Phone: [facility] 09-13-2024 08:47-0400 Body temperature 97.7 [degF] Danial Dempsey MD Work Phone: [employer] [facility] 09-01-2024 09:00-0400 Body height 170.2 cm Danial Dempsey MD Work Phone: [employer] [facility] 09-01-2024 09:00-0400 Body mass index (BMI) [Ratio] 38.12 kg/m2 Danial Dempsey MD Work Phone: [employer] [facility] 09-01-2024 09:00-0400 Body temperature 97.81 [degF] Danial Dempsey MD Work Phone: [employer] [facility] 09-01-2024 09:00-0400 Body weight 110.41 kg Danial Dempsey MD Work Phone: [employer] [facility] 09-01-2024 09:00-0400 Diastolic blood pressure 73 mm[Hg] Danial Dempsey MD Work Phone: [employer] [facility] 09-01-2024 09:00-0400 Heart rate 60 /min Danial Dempsey MD Work Phone: [facility] 09-01-2024 09:00-0400 Systolic blood pressure 115 mm[Hg] Danial Dempsey MD Work Phone: [facility] 08-26-2024 14:46-0400 Body height 172.7 cm Carlos Boise PA-C Work Phone: [facility] 08-26-2024 14:46-0400 Body mass index (BMI) [Ratio] 35.73 kg/m2 Carlos Mary PA-C Work Phone: [facility] 08-26-2024 14:46-0400 Body weight 106.59 kg Carlos Boise PA-C Work Phone: [facility] 07-11-2024 08:33-0400 Body height 162.6 cm Danial Dempsey MD Work Phone: [facility] 07-11-2024 08:33-0400 Body mass index (BMI) [Ratio] 41.88 kg/m2 Danial Dempsey MD Work Phone: [facility] 07-11-2024 08:33-0400 Body temperature 97.5 [degF] Danial Dempsey MD Work Phone: [facility] 07-11-2024 08:33-0400 Body weight 110.68 kg Danial Dempsey MD Work Phone: [facility] 07-11-2024 08:33-0400 Diastolic blood pressure 58 mm[Hg] Danial Dempsey MD Work Phone: [facility] 07-11-2024 08:33-0400 Heart rate 62 /min Danial Dempsey MD Work Phone: [facility] 07-11-2024 08:33-0400 Systolic blood pressure 99 mm[Hg] Danial Dempsey MD Work Phone: [facility] 06-03-2024 09:34-0400 Body height 172.[address] Danial Dempsey MD Work Phone: [facility] 06-03-2024 09:34-0400 Body mass index (BMI) [Ratio] 36.9 kg/m2 Dr. Danial Dempsey MD Work Phone: [facility] 06-03-2024 09:34-0400 Body weight 110.[address] Danial Dempsey MD Work Phone: [facility] 06-03-2024 09:34-0400 Diastolic blood pressure 81 mm[Hg] Dr. Danial Dempsey MD Work Phone: [facility] 06-03-2024 09:34-0400 Heart rate 66 /min Dr. Danial Dempsey MD Work Phone: [facility] 06-03-2024 09:34-0400 Respiratory rate 16 /min Dr. Danial Dempsey MD Work Phone: [facility] 06-03-2024 09:34-0400 Systolic blood pressure 134 mm[Hg] Dr. Danial Dempsey MD Work Phone: [facility] 05-15-2024 07:29-0400 Body weight 107.[address] Danial Dempsey MD Work Phone: [facility] 05-12-2024 08:46-0400 Body height 162.6 cm Danial Dempsey MD Work Phone: [facility] 05-12-2024 08:46-0400 Body mass index (BMI) [Ratio] 41.37 kg/m2 Danial Dempsey MD Work Phone: [facility] 05-12-2024 08:46-0400 Body temperature 97.5 [degF] Danial Dempsey MD Work Phone: [facility] 05-12-2024 08:46-0400 Body weight 109.32 kg Danial Dempsey MD Work Phone: [facility] 05-12-2024 08:46-0400 Diastolic blood pressure 84 mm[Hg] Danial Dempsey MD Work Phone: [facility] 05-12-2024 08:46-0400 Heart rate 67 /min Danial Dempsey MD Work Phone: [facility] 05-12-2024 08:46-0400 Systolic blood pressure 130 mm[Hg] Danial Dempsey MD Work Phone: [facility] 04-18-2024 10:27-0500 Body height 169 cm Rajan Carl MD Work Phone: [facility] 04-18-2024 10:27-0500 Body mass index (BMI) [Ratio] 37.46 kg/m2 Rajan Carl MD Work Phone: [facility] 04-18-2024 10:27-0500 Body temperature 97.9 [degF] Rajan Carl MD Work Phone: [facility] 04-18-2024 10:27-0500 Body weight 107 kg Rajan Carl MD Work Phone: [facility] 04-18-2024 10:27-0500 Diastolic blood pressure 78 mm[Hg] Rajan Carl MD Work Phone: [facility] 04-18-2024 10:27-0500 Heart rate 60 /min Rajan Carl MD Work Phone: [facility] 04-18-2024 10:27-0500 Respiratory rate 16 /min Rajan Carl MD Work Phone: [facility] 04-18-2024 10:27-0500 SaO2% (BldA) [Mass fraction] 96 % Rajan Carl MD Work Phone: [facility] 04-18-2024 10:27-0500 Systolic blood pressure 128 mm[Hg] Rajan Carl MD Work Phone: [facility] 04-18-2024 09:56-0500 Body height 172.[address] Danial Dempsey MD Work Phone: [facility] 04-18-2024 09:56-0500 Body weight 107.[address] Danial Dempsey MD Work Phone: [facility] 04-15-2024 09:07-0500 Body height 162.6 cm Danial Dempsey MD Work Phone: [facility] 04-15-2024 09:07-0500 Body mass index (BMI) [Ratio] 40.17 kg/m2 Danial Dempsey MD Work Phone: [facility] 04-15-2024 09:07-0500 Body weight 106.14 kg Danial Dempsey MD Work Phone: [facility] 04-08-2024 07:42-0500 Body mass index (BMI) [Ratio] 35.6 kg/m2 Dr. Danial Dempsey MD Work Phone: [facility] 04-08-2024 07:42-0500 Body weight 106.[address] Danial Dempsey MD Work Phone: [facility] 04-08-2024 07:42-0500 Diastolic blood pressure 68 mm[Hg] Dr. Danial Dempsey MD Work Phone: [facility] 04-08-2024 07:42-0500 Heart rate 66 /min Dr. Danial Dempsey MD Work Phone: [facility] 04-08-2024 07:42-0500 Respiratory rate 18 /min Dr. Danial Dempsey MD Work Phone: [facility] 04-08-2024 07:42-0500 SaO2% (BldA) [Mass fraction] 99 % Dr. Danial Dempsey MD Work Phone: [facility] 04-08-2024 07:42-0500 Systolic blood pressure 104 mm[Hg] Dr. Danial Dempsey MD Work Phone: [facility] 03-21-2024 08:37-0500 Body weight 109.[address] Danial Dempsey MD Work Phone: [facility] 03-07-2024 08:57-0500 Body height 172.7 cm Danial Dempsey MD Work Phone: [facility] 03-07-2024 08:57-0500 Body mass index (BMI) [Ratio] 36.95 kg/m2 Danial Dempsey MD Work Phone: [facility] 03-07-2024 08:57-0500 Body temperature 96.8 [degF] Danial Dempsey MD Work Phone: [facility] 03-07-2024 08:57-0500 Body weight 110.22 kg Danial Dempsey MD Work Phone: [facility] 03-07-2024 08:57-0500 Diastolic blood pressure 78 mm[Hg] Danial Dempsey MD Work Phone: [facility] 03-07-2024 08:57-0500 Heart rate 61 /min Danial Dempsey MD Work Phone: [facility] 03-07-2024 08:57-0500 Systolic blood pressure 127 mm[Hg] Danial Dempsey MD Work Phone: [facility] 02-20-2024 09:58-0500 Body weight 110.[address] Danial Dempsey MD Work Phone: [facility] 01-25-2024 09:07-0500 Body height 172.7 cm Danial Dempsey MD Work Phone: [facility] 01-25-2024 09:07-0500 Body mass index (BMI) [Ratio] 36.31 kg/m2 Danial Dempsey MD Work Phone: [facility] 01-25-2024 09:07-0500 Body temperature 97 [degF] Danial Dempsey MD Work Phone: [facility] 01-25-2024 09:07-0500 Body weight 108.32 kg Danial Dempsey MD Work Phone: [facility] 01-25-2024 09:07-0500 Diastolic blood pressure 69 mm[Hg] Danial Dempsey MD Work Phone: [facility] 01-25-2024 09:07-0500 Heart rate 56 /min Danial Dempsey MD Work Phone: [facility] 01-25-2024 09:07-0500 Systolic blood pressure 112 mm[Hg] Danial Dempsey MD Work Phone: [facility] 12-13-2023 09:21-0400 Body height 172.7 cm Catrina Coelho MD Work Phone: [facility] 12-13-2023 09:21-0400 Body mass index (BMI) [Ratio] 35.79 kg/m2 Catrina Coelho MD Work Phone: [facility] 12-13-2023 09:21-0400 Body temperature 97.3 [degF] Catrina Coelho MD Work Phone: [facility] 12-13-2023 09:21-0400 Body weight 106.78 kg Catrina Coelho MD Work Phone: [facility] 12-13-2023 09:21-0400 Diastolic blood pressure 65 mm[Hg] Catrina Coelho MD Work Phone: [facility] 12-13-2023 09:21-0400 Heart rate 62 /min Catrina Coelho MD Work Phone: [facility] 12-13-2023 09:21-0400 Systolic blood pressure 106 mm[Hg] Catrina Coelho MD Work Phone: [facility] 04-19-2023 10:26-0500 Body mass index (BMI) [Ratio] 36.23 kg/m2 Rajan aCrl MD Work Phone: [facility] 04-19-2023 10:26-0500 Body temperature 97.5 [degF] Rajan Carl MD Work Phone: [facility] 04-19-2023 10:26-0500 Body weight 105.2 kg Rajan Carl MD Work Phone: [facility] 04-19-2023 10:26-0500 Diastolic blood pressure 84 mm[Hg] Rajan Carl MD Work Phone: [facility] 04-19-2023 10:26-0500 Heart rate 85 /min Rajan Carl MD Work Phone: [facility] 04-19-2023 10:26-0500 Respiratory rate 14 /min Rajan Carl MD Work Phone: [facility] 04-19-2023 10:26-0500 SaO2% (BldA) [Mass fraction] 96 % Rajan Carl MD Work Phone: [facility] 04-19-2023 10:26-0500 Systolic blood pressure 138 mm[Hg] Rajan Carl MD Work Phone: [facility] 03-26-2023 08:11-0500 Body height 172.7 cm Danial Dmepsey MD Work Phone: [facility] 03-26-2023 08:11-0500 Body mass index (BMI) [Ratio] 34.21 kg/m2 Danial Dempsey MD Work Phone: [employer] [facility] 03-26-2023 08:11-0500 Body weight 102.06 kg Danial Dempsey MD Work Phone: [facility] 03-16-2023 08:27-0500 Body height 172.7 cm Danial Dempsey MD Work Phone: [employer] [facility] 03-16-2023 08:27-0500 Body mass index (BMI) [Ratio] 35.9 kg/m2 Danial Dempsey MD Work Phone: [employer] [facility] 03-16-2023 08:27-0500 Body temperature 97.11 [degF] Danial Dempsey MD Work Phone: [facility] 03-16-2023 08:27-0500 Body weight 107.09 kg Danial Dempsey MD Work Phone: [facility] 03-16-2023 08:27-0500 Diastolic blood pressure 76 mm[Hg] Danial Dempsey MD Work Phone: [employer] [facility] 03-16-2023 08:27-0500 Heart rate 74 /min Danial Dempsey MD Work Phone: [facility] 03-16-2023 08:27-0500 Systolic blood pressure 122 mm[Hg] Danial Dempsey MD Work Phone: [facility] 03-02-2023 09:11-0500 Diastolic blood pressure 80 mm[Hg] Danial Dempsey MD Work Phone: [employer] [facility] 03-02-2023 09:11-0500 Heart rate 64 /min Danial Dempsey MD Work Phone: [facility] 03-02-2023 09:11-0500 Systolic blood pressure 145 mm[Hg] Danial Dempsey MD Work Phone: [facility] 03-02-2023 08:17-0500 Body height 172.7 cm Danial Dempsey MD Work Phone: [facility] 03-02-2023 08:17-0500 Body mass index (BMI) [Ratio] 36.29 kg/m2 Danial Dempsey MD Work Phone: [facility] 03-02-2023 08:17-0500 Body temperature 97.59 [degF] Danial Dempsey MD Work Phone: [facility] 03-02-2023 08:17-0500 Body weight 108.27 kg Danial Dempsey MD Work Phone: [facility] 02-01-2023 13:12-0500 Body height 172.7 cm Davis Crystal PA-C Work Phone: [facility] 02-01-2023 13:12-0500 Body mass index (BMI) [Ratio] 35.88 kg/m2 [employer] Kidkasandra Bonilla PA-C Work Phone: [facility] 02-01-2023 13:12-0500 Body temperature 97.11 [degF] Kesley Bonilla PA-C Work Phone: [facility] 02-01-2023 13:12-0500 Body weight 107.05 kg Kesley Bonilla PA-C Work Phone: [facility] 02-01-2023 13:12-0500 Diastolic blood pressure 70 mm[Hg] Kesley Bonilla PA-C Work Phone: [employer] [facility] 02-01-2023 13:12-0500 Heart rate 77 /min Kesley Bonilla PA-C Work Phone: [facility] 02-01-2023 13:12-0500 Systolic blood pressure 129 mm[Hg] Kesley Bonilla PA-C Work Phone: [facility] 11-13-2022 09:03-0400 Body height 172.7 cm Norm Villafuerte MD Work Phone: [facility] 11-13-2022 09:03-0400 Body mass index (BMI) [Ratio] 34.1 kg/m2 Norm Villafuerte MD Work Phone: [facility] 11-13-2022 09:03-0400 Body temperature 97.5 [degF] Norm Villafuerte MD Work Phone: [facility] 11-13-2022 09:03-0400 Body weight 101.74 kg Norm Villafuerte MD Work Phone: [facility] 11-13-2022 09:03-0400 Diastolic blood pressure 67 mm[Hg] Norm Villafuerte MD Work Phone: [facility] 11-13-2022 09:03-0400 Heart rate 72 /min Norm Villafuerte MD Work Phone: [facility] 11-13-2022 09:03-0400 Systolic blood pressure 125 mm[Hg] Norm Villafuerte MD Work Phone: [facility] 11-06-2022 08:08-0400 Body height 172.72 cm PA Caroline Calloway PA Work Phone: [facility] 11-06-2022 08:08-0400 Body weight 105.68 kg PA Caroline Calloway PA Work Phone: [facility] 11-06-2022 08:06-0400 Body mass index (BMI) [Ratio] 35.4 kg/m2 PA Caroline Calloway PA Work Phone: [facility] 10-10-2022 14:49-0400 Body height 172.7 cm Norm Villafuerte MD Work Phone: [facility] 10-10-2022 14:49-0400 Body mass index (BMI) [Ratio] 34.23 kg/m2 Norm Villafuerte MD Work Phone: [facility] 10-10-2022 14:49-0400 Body temperature 98.29 [degF] Norm Villafuerte MD Work Phone: [facility] 10-10-2022 14:49-0400 Body weight 102.11 kg Norm Villafuerte MD Work Phone: [facility] 10-10-2022 14:49-0400 Diastolic blood pressure 72 mm[Hg] Norm Villafuerte MD Work Phone: [facility] 10-10-2022 14:49-0400 Heart rate 74 /min Norm Villafuerte MD Work Phone: [facility] 10-10-2022 14:49-0400 Systolic blood pressure 126 mm[Hg] Norm Villafuerte MD Work Phone: [facility] 05-26-2022 10:37-0400 Body height 172.7 cm Danial Dempsey MD Work Phone: [facility] 05-26-2022 10:37-0400 Body mass index (BMI) [Ratio] 35.14 kg/m2 Danial Dempsey MD Work Phone: [facility] 05-26-2022 10:37-0400 Body temperature 98.01 [degF] Danial Dempsey MD Work Phone: [facility] 05-26-2022 10:37-0400 Body weight 104.83 kg Danial Dempsey MD Work Phone: [facility] 05-26-2022 10:37-0400 Diastolic blood pressure 75 mm[Hg] Dainal Dempsey MD Work Phone: [facility] 05-26-2022 10:37-0400 Heart rate 68 /min Danial Dempsey MD Work Phone: [facility] 05-26-2022 10:37-0400 Systolic blood pressure 129 mm[Hg] Danial Dempsey MD Work Phone: [facility] 04-14-2022 09:44-0500 Diastolic blood pressure 78 mm[Hg] Out [facility] 04-14-2022 09:44-0500 Systolic blood pressure 120 mm[Hg] Out [facility] 04-14-2022 09:09-0500 Body height 172.72 cm Out [facility] 04-14-2022 09:09-0500 Body mass index (BMI) [Ratio] 35.4 kg/m2 Out [facility] 04-14-2022 09:09-0500 Body weight 105.74 kg Out [facility] 04-14-2022 09:09-0500 Heart rate 73 /min Out [facility] 04-14-2022 09:09-0500 Respiratory rate 16 /min Out [facility] 05-13-2021 08:32-0400 Body height 172.7 cm Yvon Warner MD Work Phone: [facility] 05-13-2021 08:32-0400 Body weight 105.23 kg Yvon Warner MD Work Phone: [facility] 05-13-2021 08:32-0400 Diastolic blood pressure 68 mm[Hg] Yvon Warner MD Work Phone: [facility] 05-13-2021 08:32-0400 Heart rate 79 /min Yvon Warner MD Work Phone: [facility] 05-13-2021 08:32-0400 Systolic blood pressure 122 mm[Hg] Yvon Warner MD Work Phone: [facility] 07-18-2016 11:40-0400 BMI (Body Mass Index) 35.44 kg/m2 [facility]red Kennedy [facility] Work Phone: 07-18-2016 11:40-0400 BP Diastolic 72 mm[Hg] [facility] Work Phone: 07-18-2016 11:40-0400 BP Systolic 116 mm[Hg] [facility] Work Phone: 07-18-2016 11:40-0400 Height 172.72 cm [facility] Work Phone: 07-18-2016 11:40-0400 Pulse (Heart Rate) 72 /min [facility] Work Phone: 07-18-2016 11:40-0400 Weight 105.73 kg [facility] Work Phone: 05-17-2016 13:49-0400 BMI (Body Mass Index) 34.97 kg/m2 Oriana Slaughter RN [facility] Work Phone: 05-17-2016 13:49-0400 BP Diastolic 78 mm[Hg] Oriana Slaughter RN [facility] Work Phone: 05-17-2016 13:49-0400 BP Systolic 130 mm[Hg] Oriana Slaughter RN [facility] Work Phone: 05-17-2016 13:49-0400 Height 172.72 cm Oriana Slaughter RN [facility] Work Phone: 05-17-2016 13:49-0400 Pulse (Heart Rate) 88 /min Oriana Slaughter RN [facility] Work Phone: 05-17-2016 13:49-0400 Respiratory Rate 20 /min [facility] Work Phone: 05-17-2016 13:49-0400 Weight 104.33 kg Oriana Slaughter RN [facility] Work Phone: Encounters Encounter Date Encounter Type Care Provider Facility Start: 12-16-2024 End: 12-16-2024 Telephone encounter Juan Velasco MD Work Phone: [facility] Comment on above: Cardiac Optimization Start: 12-11-2024 End: 12-11-2024 Office outpatient new 45 minutes Juan Velasco MD Work Phone: [facility] Comment on above: Primary osteoarthrit is of right hip (Primary Dx); Primary osteoarthritis of left hip Start: 12-11-2024 End: 12-11-2024 ambulatory DENIS THAO [facility] Start: 12-11-2024 End: 12-11-2024 Subsequent hospital visit by physician [facility] Xr Exam Room 1 [facility] Comment on above: Primary osteoarthrit is of right hip Start: 12-11-2024 End: 12-11-2024 ambulatory JUAN VELASCO [facility] Start: 12-03-2024 End: 12-03-2024 Patient encounter procedure Neal WAITE [facility] Work Phone: Start: 12-03-2024 End: 12-03-2024 ambulatory Danial Dempsey Facility:[facility] Start: 11-26-2024 End: 11-26-2024 ambulatory CELINA GARCIA Facility:[facility] Start: 10-15-2024 End: 10-15-2024 Telephone encounter Danial Dempsey MD Work Phone: [facility] Start: 10-09-2024 End: 10-09-2024 ambulatory Danial Dempsey MD Work Phone: [facility] Comment on above: Lumbar back pain wit h radiculopathy affecting left lower extremity (Primary Dx); Primary osteoarthritis of right hip Start: 10-02-2024 End: 10-02-2024 Follow-up encounter Danial Dempsey MD Work Phone: [facility] Comment on above: Lumbar back pain wit h radiculopathy affecting left lower extremity (Primary Dx); Primary osteoarthritis of right hip Start: 10-02-2024 End: 10-02-2024 ambulatory DANIAL DEMPSEY [facility] Start: 09-30-2024 End: 09-30-2024 ambulatory DANIAL DEMPSEY [facility] Start: 09-30-2024 End: 09-30-2024 Follow-up encounter Danial Dempsey MD Work Phone: [facility] Comment on above: Lumbar back pain wit h radiculopathy affecting left lower extremity (Primary Dx); Primary osteoarthritis of right hip Start: 09-25-2024 End: 09-25-2024 ambulatory DANIAL DEMPSEY [facility] Start: 09-25-2024 End: 09-25-2024 Follow-up encounter Danial Dempsey MD Work Phone: [facility] Comment on above: Lumbar back pain wit h radiculopathy affecting left lower extremity (Primary Dx); Primary osteoarthritis of right hip Start: 09-23-2024 End: 09-23-2024 ambulatory DANIAL DEMPSEY [facility] Start: 09-23-2024 End: 09-23-2024 Follow-up encounter Danial Dempsey MD Work Phone: [facility] Comment on above: Lumbar back pain wit h radiculopathy affecting left lower extremity (Primary Dx); Primary osteoarthritis of right hip Start: 09-19-2024 End: 09-19-2024 ambulatory DANIAL ROSELYN [facility] Start: 09-19-2024 End: 09-19-2024 Follow-up encounter Danial Dempsey MD Work Phone: [facility] Comment on above: Lumbar back pain wit h radiculopathy affecting left lower extremity (Primary Dx); Primary osteoarthritis of right hip Start: 09-17-2024 End: 09-17-2024 Follow-up encounter Danial Dempsey MD Work Phone: [facility] Comment on above: Lumbar back pain wit h radiculopathy affecting left lower extremity (Primary Dx); Primary osteoarthritis of right hip Start: 09-17-2024 End: 09-17-2024 ambulatory DANIAL DEMPSEY [facility] Start: 09-13-2024 End: 09-13-2024 Emergency department patient visit DANIAL DEMPSEY [facility] Comment on above: Pain, dental (Primar y Dx) Start: 09-11-2024 End: 09-11-2024 ambulatory Danial Dempsey MD Work Phone: [facility] Comment on above: Lumbar back pain wit h radiculopathy affecting left lower extremity (Primary Dx) Start: 09-09-2024 End: 09-09-2024 Follow-up encounter Danial Dempsey MD Work Phone: [facility] Comment on above: Lumbar back pain wit h radiculopathy affecting left lower extremity (Primary Dx); Primary osteoarthritis of right hip Start: 09-09-2024 End: 09-09-2024 ambulatory DANIAL DEMPSEY [facility] Start: 09-04-2024 End: 09-04-2024 Follow-up encounter Danial Dempsey MD Work Phone: [facility] Comment on above: Lumbar back pain wit h radiculopathy affecting left lower extremity (Primary Dx); Primary osteoarthritis of right hip Start: 09-04-2024 End: 09-04-2024 ambulatory DANIAL DEMPSEY [facility] Start: 09-02-2024 End: 09-02-2024 [facility] Start: 09-01-2024 End: 09-01-2024 Office outpatient visit 25 minutes Danial Dempsey MD Work Phone: [facility] Comment on above: Incidental lung nodu le, > 3mm and < 8mm (Primary Dx); 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); Capillary leak syndrome; Lumbar back pain with radiculopathy affecting left lower extremity; Essential hypertension; 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; Obesity, morbid (HCC); Prediabetes Start: 09-01-2024 End: 09-01-2024 [facility] Start: 08-28-2024 End: 08-28-2024 [facility] Start: 08-28-2024 End: 08-28-2024 Follow-up encounter Danial Dempsey MD Work Phone: [facility] Comment on above: Lumbar back pain wit h radiculopathy affecting left lower extremity (Primary Dx); Primary osteoarthritis of right hip Start: 08-26-2024 End: 08-26-2024 Office outpatient visit 15 minutes Carlos Hernandez PA-C Work Phone: Orthopaedics Comment on above: Primary osteoarthrit is of right hip (Primary Dx); Primary osteoarthritis of left hip Start: 08-26-2024 End: 08-26-2024 ambulatory CARLOS HERNANDEZ Facility:[facility] Start: 08-26-2024 End: 08-26-2024 Subsequent hospital visit by physician Rina [facility] Work Phone: Radiology Comment on above: Pain [R52] Start: 08-26-2024 End: 08-26-2024 Follow-up encounter Danial Dempsey MD Work Phone: [facility] Comment on above: Lumbar back pain wit h radiculopathy affecting left lower extremity (Primary Dx); Primary osteoarthritis of right hip Start: 08-26-2024 End: 08-26-2024 ambulatory [facility] Start: 08-21-2024 End: 08-21-2024 ambulatory DANIAL DEMPSEY [facility] Start: 08-21-2024 End: 08-21-2024 Follow-up encounter Danial Dempsey MD Work Phone: [facility] Comment on above: Lumbar back pain wit h radiculopathy affecting left lower extremity (Primary Dx); Primary osteoarthritis of right hip Start: 08-19-2024 End: 08-19-2024 Follow-up encounter Danial Dempsey MD Work Phone: [facility] Comment on above: Lumbar back pain wit h radiculopathy affecting left lower extremity (Primary Dx) Start: 08-19-2024 End: 08-19-2024 ambulatory DANIALLA NENA VLILARREALROSELYN [facility] Start: 08-14-2024 End: 08-14-2024 ambulatory Danial Dempsey MD Work Phone: [facility] Comment on above: Lumbar back pain wit h radiculopathy affecting left lower extremity; Primary osteoarthritis of right hip Start: 08-08-2024 End: 08-08-2024 Orders Only Celina Garcia MD Work Phone: [facility] Comment on above: Pain (Primary Dx) Other Start: 07-23-2024 ambulatory Danial Dempsey Fac lity:[facility] Start: 07-16-2024 End: 07-16-2024 Follow-up encounter Danial Dempsey MD Work Phone: [facility] Comment on above: Basic metabolic pane l, XR lumbar spine 2 or 3 views Start: 07-11-2024 End: 07-11-2024 ambulatory DANIAL DEMPSEY [facility] Start: 07-11-2024 End: 07-11-2024 Subsequent hospital visit by physician Danial Dempsey MD Work Phone: [facility] X-ray Imaging Comment on above: Lumbar back pain wit h radiculopathy affecting left lower extremity Start: 07-11-2024 End: 07-11-2024 Office outpatient visit 25 minutes Danial Dempsey MD Work Phone: [facility] Comment on above: Lumbar back pain wit h radiculopathy affecting left lower extremity (Primary Dx); Essential hypertension; Primary osteoarthritis of right hip; 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 Danial Dempsey MD Work Phone: [facility] Work Phone: Start: 07-03-2024 End: 07-12-[address] Addy Pardo MD -Cardiac Rehab Work Phone: Start: 06-22-2024 ambulatory Danial Dempsey [facility] lity:[facility] Start: 06-12-2024 End: 06-12-2024 Subsequent hospital visit by physician Danial Dempsye MD Work Phone: [facility] Comment on above: Arrived Start: 06-12-2024 End: 06-12-2024 ambulatory [facility] Start: 06-12-2024 End: 06-12-2024 ambulatory [facility] Start: 06-10-2024 End: 06-11-2024 ambulatory Danial Dempsey Facility:[facility] Start: 06-10-2024 End: 06-11-[address] Addy Pardo MD -Cardiac Rehab Work Phone: Start: 06-05-[address] Addy Pardo MD -Cardiac Rehab Work Phone: Start: 06-03-2024 End: 06-03-2024 Refill Franklyn Denis PA-C Work Phone: Orthopaedics Comment on above: Refill Request Start: 06-03-2024 End: 06-03-[address] Addy Pardo MD -[facility] Work Phone: Start: 06-03-2024 End: 06-03-[address] Danial Dempsey MD Work Phone: [facility] Work Phone: Start: 06-03-2024 End: 06-03-2024 ambulatory Addykm Pardo Facility:[facility] Start: 05-23-2024 End: 06-11-2024 ambulatory Rossiter Char Facility:[facility] Start: 05-23-2024 End: 06-11-[address] Addy Pardo MD -Cardiac Rehab Work Phone: Start: 05-23-[address] Addy Pardo MD -Cardiac Rehab Work Phone: Start: 05-12-2024 End: 05-12-[address] Danial Dempsey MD Work Phone: [facility] Work Phone: Start: 05-12-2024 End: 05-12-[address] 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); Essential hypertension; Mixed hyperlipidemia; Capillary leak syndrome; History of breast cancer in male; Cat bite of finger, initial encounter; Abnormal mammogram Start: 04-21-2024 End: 04-21-2024 Telephone encounter Danial Demspey MD Work Phone: [facility] Comment on above: Other (2nd attempt t o schedule) Start: 04-18-2024 End: 04-18-2024 Office outpatient visit 25 minutes Rajan Carl MD Work Phone: [facility] Comment on above: 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, estrogen receptor positive Start: 04-18-2024 End: 04-18-2024 Orders Only Danial Dempsey MD Work Phone: [facility] Comment on above: Abnormal mammogram ( Primary Dx); History of breast cancer in male Start: 04-15-2024 End: 04-15-2024 ambulatory DANIAL DEMPSEY [facility] Start: 04-15-2024 End: 04-15-2024 Subsequent hospital visit by physician Danial Dempsey MD Work Phone: [facility] Comment on above: Encounter for screen ing mammogram for malignant neoplasm of breast Start: 04-11-2024 End: 07-11-2024 Transcribe Orders Danial Dempsey MD Work Phone: [facility] Comment on above: Encounter for screen ing mammogram for malignant neoplasm of breast (Primary Dx) Start: 04-10-2024 End: 04-10-2024 Refill Catrina Coelho MD Work Phone: [facility] Comment on above: Acute rhinitis Start: 04-09-2024 End: 04-11-2024 ambulatory Danial Dempsey Facility:[facility] Start: 04-09-2024 End: 04-11-[address] Addy Pardo MD -Cardiac Rehab Work Phone: Start: 04-08-2024 End: 04-08-2024 Patient encounter procedure Caroline MOSELEY -[facility] Work Phone: Start: 04-08-2024 End: 04-08-2024 ambulatory Danial Dempsey Facility:[facility] Start: 04-05-2024 End: 04-07-2024 Refill Danial Dempsey MD Work Phone: [facility] Start: 03-14-2024 End: 03-14-2024 Documentation procedure Danial Dempsey MD Work Phone: [facility] Start: 03-14-2024 End: 03-14-2024 ambulatory Danial Dempsey Facility:[facility] Start: 03-14-2024 End: 03-14-[address] 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 Comment on above: Pain in right testic le Start: 03-04-2024 End: 03-04-2024 ambulatory [facility] Start: 02-27-2024 End: 02-27-2024 Refill Danial Dempsey MD Work Phone: [facility] Comment on above: Mixed hyperlipidemia Start: 02-11-2024 End: 02-12-2024 ambulatory Danial Dempsey Facility:[facility] Start: 02-11-2024 End: 02-12-[address] Addy Pardo MD -Cardiac Rehab Work Phone: Start: 01-31-2024 End: 01-31-2024 Patient encounter procedure Caroline MOSELEY -[facility], [facility] Work Phone: Start: 01-31-2024 End: 01-31-2024 ambulatory Danial Dempsey Facility:[facility] Start: 01-25-2024 End: 01-25-2024 ambulatory DANIAL [facility] Start: 01-25-2024 End: 01-25-2024 Subsequent hospital visit by physician Danial Dempsey MD Work Phone: [facility] X-ray Imaging Comment on above: Chronic hip pain, ri ght Start: 01-25-2024 End: 01-25-2024 Office outpatient visit 40 minutes Danial Dempsey MD Work Phone: [facility] Comment on above: Chronic hip pain, ri ght (Primary Dx); Vitamin D deficiency; Paresthesia of foot, bilateral; Pain in right testicle; Epididymitis; Dysuria; Presence of stent in coronary artery in patient with coronary artery disease; Essential hypertension; 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); Obesity, morbid (HCC); Capillary leak syndrome; Mixed hyperlipidemia Start: 01-25-2024 End: 01-25-2024 [facility] Start: 01-15-2024 Encounter for genera l adult medical examination without abnormal findings Addy Char [facility] Start: 12-25-2023 End: 12-25-2023 ambulatory Danial Dempsey Facility:[facility] Start: 12-21-2023 End: 12-21-2023 ambulatory Danial Dempsey Facility:[facility] Start: 12-13-2023 End: 12-13-2023 Office outpatient visit 25 minutes Tessie Aguirre MD Work Phone: [facility] Comment on above: Acute rhinitis (Prim katie Dx); 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); Transition of care Start: 11-30-2023 End: 12-04-2023 Telephone encounter Danial Dempsey MD Work Phone: [facility] Comment on above: Appointment Start: 11-29-2023 End: 11-29-2023 Orders Only Danial Dempsey MD Work Phone: [facility] Start: 11-28-2023 End: 11-28-2023 Orders Only Danial Dempsey MD Work Phone: [facility] Comment on above: Diuretic-induced hyp okalemia Start: 11-27-2023 End: 12-12-2023 Telephone encounter Danial Dempsey MD Work Phone: [facility] Comment on above: Med Refill Start: 08-09-2023 Refill Franklyn D Jeff alonzo PA-C Work Phone: Orthopaedics Comment on above: Refill Request Start: 04-19-2023 End: 04-19-2023 Office outpatient new 45 minutes Rajan Carl MD Work Phone: [facility] Comment on above: 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, estrogen receptor positive (CMS/HCC) (Primary Dx); Screening mammogram for breast cancer Start: 03-26-2023 End: 03-26-2023 Refill Danial Dempsey MD Work Phone: [facility] Comment on above: Encounter for screen ing mammogram for malignant neoplasm of breast Start: 03-16-2023 End: 03-16-2023 Office outpatient visit 25 minutes Jaqui Curran MD Work Phone: [facility] Comment on above: Essential hypertensi on (Primary Dx); Bilateral leg edema; Mixed hyperlipidemia; Obesity, morbid (HCC); Muscle spasms of neck Start: 03-02-2023 End: 03-02-2023 Office outpatient visit 25 minutes Jaqui Curran MD Work Phone: [facility] Comment on above: Essential hypertensi on (Primary Dx); Obesity, morbid (HCC); Benign prostatic hyperplasia without lower urinary tract symptoms; Prediabetes; Macrocytic anemia; Mixed hyperlipidemia; Vitamin D deficiency; Need for immunization against influenza Start: 02-15-2023 Non-patient / Non-visit DANIAL DEMPSEY Work Phone: [facility] Start: 02-15-2023 End: 02-15-2023 ambulatory DANIAL DEMPSEY Work Phone: [facility] Work Phone: Start: 02-15-2023 End: 02-15-2023 Patient encounter procedure DANIAL DEMPSEY Work Phone: [facility]Cardi[facility] Services Work Phone: Start: 02-01-2023 End: 02-01-2023 Patient encounter procedure Davis REBOLLEDOC Work Phone: [facility] Comment on above: Encounter for Medica re annual wellness exam (Primary Dx); Prediabetes; Essential hypertension Start: 01-22-2023 Transcribe Orders Danial lipscomb MD Work Phone: [facility] Comment on above: Encounter for screen ing mammogram for malignant neoplasm of breast (Primary Dx) Start: 12-21-2022 Refill Danial kirk MD Work Phone: [facility] Start: 11-30-2022 Orders Only Franklyn alonzo PA-C Work Phone: Orthopaedics Comment on above: S/P total knee repla cement, left Start: 11-27-2022 Refill Danial kirk MD Work Phone: [facility] Start: 11-13-2022 End: 11-13-2022 Office outpatient visit 15 minutes Tessie Aguirre MD Work Phone: [facility] Comment on above: Anxiety Start: 11-03-2022 End: 11-03-2022 ambulatory PRADIP MOSELEY Work Phone: [facility] Work Phone: Start: 11-03-2022 End: 11-03-2022 Patient encounter procedure PRADIP MOSELEY Work Phone: [facility]Pre-Admission Testing Work Phone: Start: 11-01-2022 Non-patient / Non-visit PA Conrad MOSELEY Work Phone: [facility] Start: 10-31-2022 Documentation procedure Danial Dempsey MD Work Phone: [facility] Start: 10-23-2022 End: 10-23-2022 Patient encounter procedure PA Caroline MOSELEY Work Phone: [facility] Work Phone: Start: 10-17-2022 Non-patient / Non-visit PA Conrad MOSELEY Work Phone: [facility] Start: 10-13-2022 End: 10-13-2022 ambulatory PA Caroline MOSELEY Work Phone: [facility] Work Phone: Start: 10-13-2022 End: 10-13-2022 Patient encounter procedure PA Caroline MOSELEY Work Phone: [facility] Work Phone: Start: 10-13-2022 Non-patient / Non-visit PA Conrad MOSELEY Work Phone: [facility] Start: 10-10-2022 End: 10-10-2022 Office outpatient visit 15 minutes Denis Osuna MD Work Phone: [facility] Comment on above: Situational anxiety (Primary Dx); Anxiety Start: 10-09-2022 Refill Danial kirk MD Work Phone: [facility] Start: 09-14-2022 Refill Juliette engel PA-C Work Phone: [facility] [place] Comment on above: Refill Request Start: 05-26-2022 End: 05-26-2022 Office outpatient visit 25 minutes Danial Dempsey MD Work Phone: [facility] Comment on above: 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 (Primary Dx); Bile reflux gastritis; Bilateral leg edema; Muscle spasms of neck; Benign prostatic hyperplasia with urinary obstruction; Essential hypertension; Chronic superficial gastritis without bleeding; History of breast cancer in male Start: 05-08-2022 Non-patient / Non-visit [place] [facility] Start: 05-08-2022 End: 05-08-2022 ambulatory [place] [facility] Work Phone: Start: 05-08-2022 End: 05-08-2022 Patient encounter procedure Out [facility] Start: 04-14-2022 End: 04-14-2022 Patient encounter procedure Out [facility] Start: 04-10-2022 ambulatory Marissa Loredo Facility:[id number] Start: 12-08-2021 End: 12-09-2021 ambulatory Danial [facility] Start: 12-08-2021 End: 12-08-2021 Subsequent hospital visit by physician Danial Dempsey MD Work Phone: [facility] Start: 12-08-2021 ambulatory UNKNOWN PROVIDER [facility] Start: 12-08-2021 End: 12-08-2021 Subsequent hospital visit by physician Marissa Loredo MD Work Phone: [facility] Mammography Comment on above: Arrived Start: 11-28-2021 ambulatory Danial Dempsey [facility] Start: 11-07-2021 ambulatory UNKNOWN PROVIDER [facility] Start: 09-28-2021 ambulatory UNKNOWN PROVIDER [facility] Start: 09-28-2021 End: 09-28-2021 Subsequent hospital visit by physician Danial Dempsey MD Work Phone: [facility] Ultrasound Comment on above: Localized edema; Isolated proteinuria; 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 Start: 09-23-2021 ambulatory UNKNOWN PROVIDER [facility] Start: 09-23-2021 End: 09-23-2021 Subsequent hospital visit by physician Danial [facility] Start: 09-19-2021 Refill Yvon Warner MD Work Phone: [facility] Comment on above: Refill Request Start: 09-12-2021 ambulatory [facility] Start: 09-12-2021 End: 09-12-2021 Subsequent hospital visit by physician Danial Dempsey MD Work Phone: [facility] [address] Comment on above: Dyspnea, unspecified Start: 09-07-2021 ambulatory [facility] Start: 08-23-2021 ambulatory [facility] Start: 08-23-2021 End: 08-23-2021 Subsequent hospital visit by physician Danial Dempsey MD Work Phone: [facility] Start: 05-19-2021 Orders Only Yvon Warner MD Work Phone: [facility] Comment on above: Nausea (Primary Dx); Pain of upper abdomen Start: 05-13-2021 End: 05-13-2021 Patient encounter procedure Yvon Warner MD Work Phone: [facility] Comment on above: Bile acid esophageal reflux (Primary Dx); Duodenogastric bile reflux; Nausea; Diverticulosis; Hiatal hernia; Gastroesophageal reflux disease, unspecified whether esophagitis present Start: 05-09-2021 Refill Franklyn alonzo PA-C Work Phone: Orthopaedics Comment on above: Refill Request Start: 01-27-2021 End: 01-27-2021 Subsequent hospital visit by physician Rina [facility] Work Phone: Radiology Comment on above: 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.12] Start: 12-07-2020 End: 12-07-2020 Subsequent hospital visit by physician Marissa Loredo MD Work Phone: [facility] Mammography Comment on above: Arrived Start: 10-13-2020 End: 10-13-2020 Subsequent hospital visit by physician Xr [facility] Work Phone: Radiology Comment on above: Pain [R52] Start: 08-31-2020 End: 08-31-2020 Subsequent hospital visit by physician Ewa Schmid MD Work Phone: [facility] [facility] Start: 07-30-2020 End: 07-30-2020 Subsequent hospital visit by physician Danial Dempsey MD Work Phone: [facility] [place] [facility] Start: 06-10-2020 End: 06-10-2020 Subsequent hospital visit by physician Danial Dempsey MD Work Phone: [facility] Ultrasound Comment on above: Nausea Start: 05-03-2020 End: 05-03-2020 Subsequent hospital visit by physician Danial Dempsey Work Phone: [facility] [facility] Start: 04-14-2020 End: 04-14-2020 Subsequent hospital visit by physician Rina [facility] Work Phone: Radiology Comment on above: Primary osteoarthrit is of right knee [M17.11] Start: 02-24-2020 Patient encounter status Out [facility] Start: 11-12-2019 End: 11-12-2019 Subsequent hospital visit by physician Rina [facility] Work Phone: Radiology Comment on above: Pain [R52] Start: 11-03-2019 End: 11-03-2019 Subsequent hospital visit by physician Marissa Loredo Work Phone: [facility] Mammography Comment on above: Arrived Start: 10-02-2019 End: 10-02-2019 Orders Only Franklyn D (Pa-C) Decapua Work Phone: Orthopaedics Comment on above: Left knee pain, unsp ecified chronicity (Primary Dx) Start: 03-14-2019 End: 03-14-2019 Subsequent hospital visit by physician Danial Dempsey MD Work Phone: [facility] [place] [facility] Start: 12-30-2018 End: 12-30-2018 Subsequent hospital visit by physician Danial Dempsey Work Phone: [facility] [place] [facility] Start: 11-29-2018 End: 11-29-2018 Subsequent hospital visit by physician Danial Dempsey Work Phone: [facility] EKG Start: 11-29-2018 End: 11-29-2018 Subsequent hospital visit by physician Danial Dempsey Work Phone: [facility] [place] [facility] Start: 10-28-2018 End: 10-28-2018 Subsequent hospital visit by physician Marissa Loredo Work Phone: [facility] Mammography Comment on above: Arrived Procedures Date Procedure Procedure Detail Performing Clinician Start: 09-13-2024 Ct soft tissue neck w/contrast material Tangela L Janas PA-C Work Phone: Start: 09-13-2024 Basic metabolic pane l calcium total Tangela Km Wymanas PA-C Work Phone: Start: 07-11-2024 Basic metabolic pane l calcium total Danial Dempsey MD Work Phone: Start: 06-12-2024 Diagnostic mammograp hy computer-aided detcj uni Danial Dempsey MD Work Phone: Start: 06-03-2024 Urine microalbumin/creatinine ratio measurement Dr. Danial Dempsey MD Work Phone: Start: 05-21-2024 Lipid 1996 panel - S jarrett or Plasma Danial Dempsey MD Work Phone: Start: 04-15-2024 Screening digital br east tomosynthesis bi Danial Dempsey MD Work Phone: Start: 03-07-2024 Hemoglobin glycosylated a1c Danial Dempsey MD Work Phone: Start: 03-07-2024 Adult depression scr eening assessment Danial Dempsey MD Work Phone: Start: 03-04-2024 Us scrotum & contents N juan Dempsey MD Work Phone: Start: 01-31-2024 CT of chest without contrast Dr. Danial Dempsey MD Work Phone: Start: 01-25-2024 Culture bacterial quanttative colony count urine Ewa Schmid MD Work Phone: Start: 01-25-2024 Cyanocobalamin vitamin b-12 Danial Dempsey MD Work Phone: Start: 01-25-2024 Urnls dip stick/tabl et rgnt non-auto w/o micrscp Danial Dempsey MD Work Phone: Start: 12-13-2023 Adult depression scr eening assessment Catrina Coelho MD Work Phone: Start: 11-28-2023 History of placement of stent for coronary artery disease History of coronary artery stent placement Caroline MOSELEY Comment on above: 4.0 x 38 HOWARD FRONTI ER AIYANA to pRCA 11/28/23 Start: 03-26-2023 Screening digital br east tomosynthesis bi Danial Dempsey MD Work Phone: Start: 03-03-2023 Comprehensive metabo lic panel Danial Dempsey MD Work Phone: Start: 03-03-2023 Lipid panel Danial arshad MD Work Phone: Start: 03-03-2023 PSA TOTAL (SCREENING) N juan Dempsey MD Work Phone: Start: 03-03-2023 Thyrotropin [Units/v olume] in Serum or Plasma Danial Dempsey MD Work Phone: Start: 03-03-2023 Lipid 1996 panel - S jarrett or Plasma Danial Dempsey MD Work Phone: Start: 02-15-2023 Radionuclide imaging of perfusion of myocardium under exercise stress DANIAL DEMPSEY Work Phone: Start: 02-01-2023 Adult depression scr eening assessment Davis Crystal PA-C Work Phone: Start: 10-23-2022 CT of chest without contrast PRADIP MOSELEY Work Phone: Start: 10-17-2022 Adult depression scr eening assessment Norm Villafuerte MD Work Phone: Start: 10-13-2022 CT angiography of co ronary arteries PA Caroline MOSELEY Work Phone: Start: 12-28-2021 Lipid 1996 panel - S jarrett or Plasma Danial Dempsey MD Work Phone: Start: 12-21-2021 Adult depression scr eening assessment Danial Dempsey MD Work Phone: Start: 12-08-2021 Screening mammograph y bi 2-view breast inc cad Marissa Loredo MD Work Phone: Start: 09-28-2021 Us retroperitoneal r eal time w/image limited Danial Dempsey MD Work Phone: Start: 09-12-2021 Echo tthrc r-t 2d w/wom-mode compl spec&colr d Danial Dempsey MD Work Phone: Start: 08-23-2021 Ecg routine ecg w/le ast 12 lds w/i&r Danial Dempsey MD Work Phone: Start: 06-23-2021 Medical genetics cou nseling each 30 minutes Danial Dempsey Work Phone: Start: 05-19-2021 Medical genetics cou nseling each 30 minutes Danial Dempsey Work Phone: Start: 01-27-2021 Radiologic examinati on knee 3 views Franklyn Denis PA-C Work Phone: Start: 12-20-2020 Antibody screen Comment on above: Performed By: #### T [id number] ####Collette [id number] [phone] Start: 12-07-2020 Screening mammograph y bi 2-view breast inc cad Marissa Loredo MD Work Phone: Start: 11-10-2020 Colonoscopy Franklyn quintero PA-C Work Phone: Start: 10-13-2020 Radiologic exam knee complete 4/more views Celina Garcia MD Work Phone: Start: 06-10-2020 Us abdominal real ti me w/image limited Danial Dempsey MD Work Phone: Start: 05-03-2020 Lipid 1996 panel - S jarrett or Plasma Franklyn Decapua PA-C Work Phone: Start: 04-14-2020 Radiologic examinati on knee 3 views Franklyn D Decapua PA-C Work Phone: Start: 02-27-2020 Antibody screen Comment on above: Performed By: #### T SCR30 #### [place] [id number] Start: 11-12-2019 Radiologic exam knee complete 4/more views Celina Garcia MD Work Phone: Start: 07-18-2016 End: 07-18-2016 JONI Pardo MD Start: 07-18-2016 End: 07-18-2016 Follow Up Appt 1 year Addy Pardo MD Start: 05-17-2016 End: 07-18-2016 JONI Pardo MD Start: 05-17-2016 End: 06-14-2016 Echocardiography Addy Pardo MD Start: 05-17-2016 End: 06-14-2016 Electrocardiogram, complete Addy Oliveira i, MD Start: 05-17-2016 End: 07-18-2016 Follow Up Appt 2 months Stevan Peña Start: 05-17-2016 End: 06-14-2016 Nuclear stress test -exercise Addy Pardo MD Plan of Treatment Date Care Activity Detail Author Start: 11-10-2030 Screening for malignant neoplasm of [facility] Start: 05-21-2029 Lipid panel [facility] Start: 03-03-2028 Lipid panel Lipid Panel [facility] Start: 07-12-2027 Diabetes Screening Diabetes Screening [facility] Start: 03-07-2027 Diabetes mellitus screening Diabetes Screening [facility] Start: 12-28-2026 Lipid panel Lipid Panel [facility] Start: 10-02-2026 RSV Vaccine (1 - 1-dose 75+ series) RSV Vaccine (1 - 1-dose 75+ series) [facility] Start: 03-03-2026 Diabetes mellitus screening Diabetes Screening [facility] Start: 11-10-2025 Colonoscopy COLONOSCOPY [facility] Start: 11-10-2025 COLORECTAL CANCER SCREENING COLORECTAL CANCER SCREENING [facility] Start: 11-10-2025 Screening for malignant neoplasm of colon [facility] Start: 07-08-2025 DTaP/Tdap/Td vaccine (2 - Td or Tdap) DTaP/Tdap/Td vaccine (2 - Td or Tdap) [facility] Start: 07-08-2025 DTaP/Tdap/Td vaccine (2 - Td) DTaP/Tdap/Td vaccine (2 - Td) [place] Start: 07-08-2025 DTaP/Tdap/Td Vaccines (2 - Td or Tdap) DTaP/Tdap/Td Vaccines (2 - Td or Tdap) [facility] Start: 07-08-2025 Urine microalbumin profile DTaP,Tdap,Td Vaccine (2 - Td or Tdap) [facility] Start: 05-03-2025 Lipid panel Lipid Screening [facility] Start: 04-18-2025 End: 04-18-2025 CBC W Auto Differential panel - Blood CBC and Auto Differential Lab Routine 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, estrogen receptor positive Expected: 04/16/2025, Expires: 06/18/2025 [facility] Service Area Work Phone: Comment on above: Expected: 04/16/2025, Expires: Start: 03-07-2025 Depression Screening Depression Screening [facility] Start: 03-07-2025 Diabetes mellitus screening Diabetes Screening [facility] Start: 12-12-2024 Depression Screening Depression Screening [facility] Start: 12-11-2024 End: 12-11-2025 XR hips bilateral 3 or 4 views [facility] Comment on above: Expected: 12/11/2024, Expires: Once for 1 Occurrenc es starting 12/11/2024 until 12/11/2024 Start: 12-08-2024 End: 12-08-2025 XR Hip - right 3 Views XR hip right 2 or 3 views Imaging Routine Primary osteoarthritis of right hip Expected: 12/08/2024, Expires: 12/08/2025 [facility] [employer] [facility] Work Phone: Comment on above: Expected: 12/08/2024, Expires: 6 Start: 11-26-2024 End: 11-26-2024 Patient encounter procedure Radiology Comment on above: stu knee stu knee tkr prev Start: 10-13-2024 COVID-19 Vaccine ( season) COVID-19 Vaccine ( season) [facility] Start: 10-13-2024 Influenza vaccination [facility] Start: 10-09-2024 End: 10-09-2024 ambulatory 10/09/2024 9:00 AM EDT Evaluation [facility] Therapy at [address] [place] [address] Danial Dempsey MD [address], [place] [address] [place] [address] [place], PT [facility] Start: 10-07-2024 End: 10-07-2024 Follow-up encounter 10/07/2024 9:30 AM EDT Follow-Up [facility] at [address] [place] [address] Danial Dempsey MD [address], [place] [address] [place] [address] Almas Rascon, TROUBLE LOCATER [facility] Start: 10-02-2024 End: 10-02-2024 Follow-up encounter 10/02/2024 9:30 AM EDT Follow-Up [facility] at [address] [place] [address] Danial Dempsey MD [address] [address] Almas Rascon, TROUBLE LOCATER [facility] Start: 09-30-2024 End: 09-30-2024 Follow-up encounter 09/30/2024 9:30 AM EDT Follow-Up [facility] at [address] [place] [address] Danial Dempsey MD [address] [place] [address] [place] [address] Almas Rascon, TROUBLE LOCATER [facility] Start: 09-25-2024 End: 09-25-2024 Follow-up encounter [facility] Start: 09-23-2024 End: 09-23-2024 Follow-up encounter 09/23/2024 3:15 PM EDT Follow-Up [facility] at [address] [place] [address] Danial Dempsey MD [address] [place] [address] [place], PT [facility] Start: 09-23-2024 Diabetes mellitus screening Diabetes Screening [facility] Start: 09-19-2024 End: 09-19-2024 Follow-up encounter [facility] Start: 09-17-2024 End: 09-17-2024 Follow-up encounter 09/17/2024 9:30 AM EDT Follow-Up [facility] at [address] [place] [address] Danial Dempsey MD [address] [place] [address] [place], PT [facility] Start: 09-11-2024 End: 09-11-2024 ambulatory 09/11/2024 9:00 AM EDT Evaluation [facility] at [address] [place] [address] Danial Dempsey MD [address] [place] [address] Sujey Mayer [facility] Start: 09-09-2024 End: 09-09-2024 Follow-up encounter 09/09/2024 9:00 AM EDT Follow-Up [facility] at [address] [place] [address] Danial Dempsey MD [address] [place] [address] Almas Rascon, TROUBLE LOCATER [facility] Start: 09-05-2024 End: 09-05-2024 Patient encounter procedure 09/05/2024 9:00 AM EDT Office Visit [address] [place] [phone] Danial Dempsey MD [address] [place] [address] [address] [place] [address] [facility] Start: 09-04-2024 End: 09-04-2024 Follow-up encounter 09/04/2024 10:30 AM EDT Follow-Up [facility] Therapy at [address] [place] [address] Danial Dempsey MD [address] [place] [address] Almas Rascon, TROUBLE LOCATER [facility] at [facility] Start: 09-02-2024 End: 09-02-2024 Follow-up encounter 09/02/2024 8:00 AM EDT Follow-Up [facility] Therapy at [address] [place] [address] Danial Dempsey MD [address] [place] [address] Almas Rascon, TROUBLE LOCATER [facility] Start: 09-01-2024 End: 09-01-2024 Patient encounter procedure 09/01/2024 9:00 AM EDT Office Visit [address] [phone] Danial Dempsey MD [address] [place] [address] [facility] Start: 08-28-2024 End: 08-28-2024 Follow-up encounter 08/28/2024 8:30 AM EDT Follow-Up [facility] at [address] [place] [address] Danial Dempsey MD [address] [place] [address] Almas Rascon, TROUBLE LOCATER [facility] Start: 08-26-2024 End: 08-26-2024 Patient encounter procedure Radiology Comment on above: stu hip stu hip pain Start: 08-26-2024 End: 08-26-2024 Follow-up encounter 08/26/2024 8:45 AM EDT Follow-Up [facility] Therapy at [address] [place] [address] Danial Dempsey MD [address] [place] [address] Almas Rascon, TROUBLE LOCATER [facility] at [facility] Start: 08-21-2024 End: 08-21-2024 Follow-up encounter 08/21/2024 8:30 AM EDT Follow-Up [facility] Therapy at [address] [place] [address] Danial Dempsey MD [address] [place] [address] Almas Rascon, TROUBLE LOCATER [facility] Start: 08-19-2024 End: 08-19-2024 Follow-up encounter 08/19/2024 2:00 PM EDT Follow-Up [facility] Therapy at [address] [place] [address] Danial Dempsey MD [address] [place] [address] [place], PT [facility] Therapy at [facility] Start: 08-14-2024 End: 08-14-2024 ambulatory 08/14/2024 11:15 AM EDT Evaluation [facility] Therapy at [facility] [address] [place] [phone] Danial Dempsey MD [address] [place] [address] [address] [place] [address] [place], LINDA [facility] Therapy at [facility] Start: 08-12-2024 Screening for malignant neoplasm of colon Colon cancer screen colonoscopy [facility] Work Phone: Start: 08-11-2024 Influenza vaccination Influenza Vaccine (#1) [facility] Comment on above: Postponed from 10/14/2023 (Patient Refus ed) Start: 07-25-2024 COVID-19 Vaccine ( season) COVID-19 Vaccine ( season) [facility] Start: 07-25-2024 Covid-19 Vaccine ( season) Covid-19 Vaccine ( season) [facility] Start: 07-11-2024 End: 07-11-2025 Basic metabolic 1998 panel - Serum or Plasma Basic metabolic panel Lab Routine Essential hypertension Expected: 07/11/2024 (Approximate), Expires: 07/11/2025 [facility] Comment on above: Expected: 07/11/2024 (Approximate), Expi res: 07/11/2025 Start: 07-11-2024 End: 07-11-2025 XR Lumbar spine 2 or 3 Views [facility] [employer] [facility] Work Phone: Comment on above: Expected: 07/11/2024, Expires: Once for 1 Occurrenc es starting 07/11/2024 until 07/11/2024 Start: 07-11-2024 End: 07-11-2024 Patient encounter procedure 07/11/2024 8:30 AM EDT Office Visit [facility] [address] [facility] [place] [address] Danial Dempsey MD [address] [place] [address] [address] [facility] [place] [address] [facility] Start: 06-12-2024 End: 06-12-2024 Patient encounter procedure [facility] Start: 05-12-2024 End: 05-12-2024 Patient encounter procedure 05/12/2024 8:30 AM EDT Office Visit [facility] [address] [facility] [place] [phone] Danial Dempsey MD [address] [place] [address] [address] [facility] [place] [place] [address] [facility] Start: 04-21-2024 End: 04-21-2024 Patient encounter procedure 04/21/2024 8:30 AM EDT Office Visit [address] [place] [address] Danial Dempsey MD [address] [place] [address] [address] [place] [address] [facility] Start: 04-18-2024 End: 07-19-2024 DBT Breast - left diagnostic Left diagnostic mammogram with tomosynthesis Imaging Routine Abnormal mammogram History of breast cancer in male Expected: 04/18/2024, Expires: 07/19/2024 [facility] Work Phone: Comment on above: Expected: 04/18/2024, Expires: Start: 04-18-2024 End: 04-18-2024 Patient encounter procedure 04/18/2024 10:20 AM EST Office Visit [address] [place] [phone] Rajan Carl MD [address] [facility] [address] [place] [address] [facility] Start: 03-27-2024 End: 06-18-2024 DBT Breast - left screening BI mammo left screening tomosynthesis Imaging Routine 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 Work Phone: Comment on above: Expected: 03/27/2024, Expires: Start: 03-07-2024 End: 03-07-2024 Patient encounter procedure 03/07/2024 9:00 AM EST Office Visit [facility] [address] [place] [phone] Danial Dempsey MD [address] [place] [place] [address] [place] [address] [facility] Start: 03-03-2024 Medicare Advantage Annual Wellness Visit (AWV) Medicare Advantage Annual Wellness Visit (AWV) [facility] Start: 02-13-2024 Advance Directive Discussion Advance Directive Discussion [facility] Start: 02-13-2024 Medicare Advantage Annual Wellness Visit Medicare Advantage Annual Wellness Visit [facility] Start: 02-02-2024 Depression Screening Depression Screening [facility] Start: 01-25-2024 End: 01-24-2025 25-hydroxyvitamin D3 [Mass/volume] in Serum or Plasma Vitamin D Deficiency Screening (Vit D 25) Lab Routine Vitamin D deficiency Expected: 01/25/2024 (Approximate), Expires: 01/24/2025 [facility] Work Phone: Comment on above: Expected: 01/25/2024 (Approximate), Expi res: 01/24/2025 Start: 01-25-2024 End: 01-24-2025 Cobalamin (Vitamin B12) [Mass/volume] in Serum or Plasma Vitamin B12 Lab Routine Paresthesia of foot, bilateral Expected: 01/25/2024 (Approximate), Expires: 01/24/2025 [facility] Comment on above: Expected: 01/25/2024 (Approximate), Expi res: 01/24/2025 Start: 01-25-2024 End: 01-24-2025 US.doppler Scrotum and testicle US scrotum Imaging Routine Pain in right testicle Expected: 01/25/2024, Expires: 01/24/2025 [facility] Comment on above: Expected: 01/25/2024, Expires: 5 Start: 01-25-2024 End: 01-24-2025 XR Hip - right 3 Views [facility] Comment on above: Expected: 01/25/2024, Expires: Once for 1 Occurrenc es starting 01/25/2024 until 01/25/2024 Start: 01-25-2024 End: 01-25-2024 Patient encounter procedure 01/25/2024 9:00 AM EST Office Visit [facility] [address] [place] [phone] Danial Dempsey MD [address] [address] [facility] Start: 12-29-2023 DIABETES SCREEN DIABETES SCREEN [facility] Start: 12-29-2023 Diabetes Screening Diabetes Screening [facility] Start: 12-13-2023 End: 12-13-2023 Patient encounter procedure 12/13/2023 9:15 AM EDT Office Visit [facility] [address] [place] [phone] Catrina Coelho MD [address] [place] [address] [facility] Start: 10-18-2023 Depression Screening Depression Screening [facility] Start: 10-14-2023 Covid-19 Vaccine ( season) Covid-19 Vaccine ( season) [facility] Start: 10-14-2023 COVID-19 Vaccine ( season) COVID-19 Vaccine ( season) [facility] Start: 10-14-2023 COVID-19 Vaccine ( season) COVID-19 Vaccine ( season) [facility] Start: 10-14-2023 Influenza vaccination Influenza Vaccine (#1) [facility] Start: 06-14-2023 End: 03-16-2024 Basic metabolic 1998 panel - Serum or Plasma Basic metabolic panel Lab Routine Essential hypertension Bilateral leg edema Expected: 06/14/2023 (Approximate), Expires: 03/16/2024 [facility] Work Phone: Comment on above: Expected: 06/14/2023 (Approximate), Expi res: 03/16/2024 Start: 05-28-2023 Diabetes mellitus screening Diabetes Screening [facility] Start: 03-26-2023 End: 03-26-2023 Patient encounter procedure 03/26/2023 8:00 AM EST Appointment [facility] [address] [place] [phone] Danial Dempsey MD [address] [place] [address] [place] [address] [facility] Start: 03-16-2023 End: 03-16-2023 Patient encounter procedure 03/16/2023 8:30 AM EST Office Visit [facility] [address] [place] [phone] Danial Dempsey MD [address], [place] [address] [place] [address] [facility] Start: 03-02-2023 End: 03-02-2023 Patient encounter procedure 03/02/2023 8:30 AM EST Office Visit [facility] [address] [place] [address] Danial Dempsey MD [address] [place] [address] [facility] [place] [address] [facility] Start: 02-12-2023 Advance Directive Discussion Advance Directive Discussion [facility] Start: 02-12-2023 Behavioral Health Screening Behavioral Health Screening [facility] Start: 02-12-2023 Medicare Advantage Annual Wellness Visit Medicare Advantage Annual Wellness Visit [facility] Start: 02-02-2023 End: 02-02-2023 Patient encounter procedure 02/02/2023 8:30 AM EST Office Visit [facility] [address] [place] [address] Danial Dempsey MD [address] [place] [address] [facility] Start: 02-01-2023 End: 02-01-2023 Patient encounter procedure 02/01/2023 1:00 PM EST Office Visit [facility] [address] [place] [address] Davis Crystal PA-C [address] [facility] [address] [place] [address] [facility] Start: 12-21-2022 Depression Screening Depression Screening [facility] Start: 11-13-2022 End: 11-13-2022 Patient encounter procedure 11/13/2022 9:00 AM EDT Office Visit [facility] [address] [place] [address] Danial Dempsey MD [address] [place] [address] [facility] Start: 10-13-2022 Covid-19 Vaccine () Covid-19 Vaccine () [facility] Start: 10-13-2022 COVID-19 Vaccine ( season) COVID-19 Vaccine () [facility] Start: 10-13-2022 Influenza vaccination [facility] Start: 10-10-2022 End: 10-10-2022 Patient encounter procedure 10/10/2022 2:30 PM EDT Office Visit [facility] [address] [place] [phone] Norm Villafuerte MD [address] [place] [address] [facility] Start: 09-23-2022 Depression Screen Depression Screen [facility] Start: 09-23-2022 Hemoglobin A1c measurement A1C test (Diabetic or Prediabetic) [facility] Start: 08-23-2022 Prostate specific antigen measurement Prostate Specific Antigen (PSA) Screening or Monitoring [facility] Start: 06-15-2022 Lipid screen Lipid screen [place], [place] Start: 05-13-2022 BP CONTROLLED (<130/80) BP CONTROLLED (<130/80) [facility] Start: 03-04-2022 COVID-19 Vaccine (5 - Additional dose for David series) COVID-19 Vaccine (5 - Additional dose for David series) [facility] Start: 02-12-2022 ADVANCE DIRECTIVE DISCUSSION ADVANCE DIRECTIVE DISCUSSION [facility] Start: 02-12-2022 DEPRESSION ASSESSMENT DEPRESSION ASSESSMENT [facility] Start: 12-08-2021 End: 12-08-2021 Patient encounter procedure 12/08/2021 Appointment Radiology [facility] Start: 11-07-2021 End: 11-07-2021 Patient encounter procedure 11/07/2021 Office Visit Family Medicine Danial Dempsey MD [address] [place] [address] [facility] Start: 10-13-2021 Influenza vaccination [facility] Start: 09-28-2021 End: 09-28-2021 Patient encounter procedure 09/28/2021 Appointment Radiology [facility] Start: 09-12-2021 End: 09-12-2021 Patient encounter procedure 09/12/2021 Appointment Echocardiography Danial Dempsey MD [address] [place] [address] [facility] [address] Start: 07-31-2021 Annual Wellness Visit (AWV) Annual Wellness Visit (AWV) [facility] Start: 07-28-2021 Depression Screen Depression Screen [facility] Start: 05-27-2021 Hemoglobin A1c measurement A1C test (Diabetic or Prediabetic) [facility] Start: 05-03-2021 Creatinine measurement Creatinine monitoring [facility] Work Phone: Start: 05-03-2021 Lipid panel [facility] Start: 05-03-2021 Potassium monitoring Potassium monitoring [facility] Work Phone: Start: 04-09-2021 COVID-19 VACCINE (3 - Booster for David series) COVID-19 VACCINE (3 - Booster for David series) [facility] Start: 02-12-2021 ADVANCE DIRECTIVE DISCUSSION ADVANCE DIRECTIVE DISCUSSION [facility] Start: 02-01-2021 COVID-19 VACCINE (3 - Booster for David series) COVID-19 VACCINE (3 - Booster for David series) [facility] Start: 10-15-2020 End: 10-15-2020 Patient encounter procedure 10/15/2020 Office Visit Family Medicine Danial Dempsey MD [address] [place] [address] [phone] [facility] Start: 10-13-2020 Influenza vaccination Flu vaccine (#1) [facility] Work Phone: Start: 08-31-2020 End: 08-31-2020 Patient encounter procedure 08/31/2020 Office Visit Family Medicine Shilo Laughlin MD [address] [place] [address] [phone] [facility] Start: 07-30-2020 End: 07-30-2020 Patient encounter procedure 07/30/2020 Office Visit Family Danial Jiménez MD [address] [place] [address] [phone] [facility] Start: 07-02-2020 COVID-19 Vaccine (2 - Booster for David series) COVID-19 Vaccine (2 - Booster for David series) [facility] Start: 05-28-2020 End: 05-28-2020 Office Visit 05/28/2020 Office Visit Family Medicine Danial Dempsey MD [address] [place] [address] [phone] [facility] Start: 11-30-2019 Creatinine measurement Creatinine monitoring [facility] [place] Start: 11-30-2019 Creatinine monitoring Creatinine monitoring [facility] [place] Start: 11-30-2019 Lipid panel Lipid screen [facility] [place], [place] Start: 11-30-2019 Lipid screen Lipid screen [facility] [place] Start: 11-30-2019 Potassium monitoring Potassium monitoring [facility] [place] Start: 10-14-2019 Influenza vaccination [facility] Start: 02-05-2019 Shingles Vaccine (2 of 2) Shingles Vaccine (2 of 2) [facility] [place], [place] Start: 12-30-2018 End: 12-30-2018 Office Visit 12/30/2018 Office Visit Family Medicine Danial Dempsey MD [address] [place] [address] [phone] [facility] Start: 11-18-2018 End: 11-18-2018 Office Visit 11/18/2018 Office Visit Family Medicine Danial Dempsey MD [address] [place] [address] [phone] [facility] Start: 10-13-2018 Influenza vaccination Flu vaccine (#1) [facility] [place], [place] Start: 08-04-2018 Annual Wellness Visit (AWV) Annual Wellness Visit (AWV) [facility] [place] Start: 06-15-2018 Creatinine monitoring Creatinine monitoring [facility] [place] , [place] Start: 06-15-2018 Lipid screen Lipid screen [facility] [place] Start: 06-15-2018 Potassium monitoring Potassium monitoring [facility] [place] Start: 01-22-2018 Pneumococcal 65+ years Vaccine (2 of 2 - PPSV23) Pneumococcal 65+ years Vaccine (2 of 2 - PPSV23) [place] Start: 07-24-2017 End: 07-24-2017 Appointment [facility] Work Phone: Start: 10-02-2016 ADVANCE DIRECTIVE DISCUSSION ADVANCE DIRECTIVE DISCUSSION [facility] Start: 10-02-2016 PNEUMOVAX AGE 65 AND OVER WITH 5YR LOOKBACK (#1) PNEUMOVAX AGE 65 AND OVER WITH 5YR LOOKBACK (#1) [facility] Start: 07-18-2016 End: 07-18-2016 Appointment Appointment [facility] Work Phone: Start: 07-18-2016 End: 07-18-2016 Appointment Appointment [facility] Work Phone: Start: 07-18-2016 End: 07-18-2016 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 [facility] Work Phone: Start: 07-18-2016 End: 07-18-2016 Follow Up Appt 1 year Follow Up Appt 1 year [facility] Work Phone: Start: 05-17-2016 End: 07-18-2016 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 [facility] Work Phone: Start: 05-17-2016 End: 06-14-2016 Echocardiography Echocardiogram (complete) [facility] Work Phone: Start: 05-17-2016 End: 06-14-2016 Electrocardiogram, complete EKG (In office) [facility] Work Phone: Start: 05-17-2016 End: 07-18-2016 Follow Up Appt 2 months Follow Up Appt 2 months [facility] Work Phone: Start: 05-17-2016 End: 06-14-2016 Nuclear stress test -exercise Nuclear stress test -exercise [facility] Work Phone: Start: 2011 RSV High Risk: (Elderly (60+) or Population) (1 - Risk 60-74 years 1-dose series) RSV High Risk: (Elderly (60+) or Population) (1 - Risk 60-74 years 1-dose series) [facility] Start: 2011 RSV Immunization aged 60 or older (1 - 1-dose 60+ series) RSV Immunization aged 60 or older (1 - 1-dose 60+ series) [facility] Start: 2011 RSV Immunization for Adults (1 - Risk 60-74 years 1-dose series) RSV Immunization for Adults (1 - Risk 60-74 years 1-dose series) [facility] Start: 2011 RSV Vaccine (1 - 1-dose 60+ series) RSV Vaccine (1 - 1-dose 60+ series) [facility] Start: 10-02-2006 PROSTATE CANCER SCREENING DISCUSSION PROSTATE CANCER SCREENING DISCUSSION [facility] Start: 10-02-2001 Colon cancer screen colonoscopy Colon cancer screen colonoscopy [place], [place] Start: 10-02-2001 Screening for malignant neoplasm of colon Colon cancer screen colonoscopy [place], [place] Start: 10-02-2001 Shingles Vaccine (1 of 2) Shingles Vaccine (1 of 2) [facility] [place], [place] Start: 10-02-2001 SHINGRIX VACCINE (1 of 2) SHINGRIX VACCINE (1 of 2) [facility] Start: 10-02-2001 Tuberculosis screening COLORECTAL CANCER SCREENING,SEE MODIFIER [facility] Start: 10-02-1996 COLOGUARD (FIT-DNA) COLOGUARD (FIT-DNA) [facility] Start: 10-02-[address] COLONOGRAPHY [facility] Start: 10-02-1996 DIABETES SCREEN DIABETES SCREEN [facility] Start: 10-02-1996 FECAL OCCULT BLOOD FECAL OCCULT BLOOD [facility] Start: 10-02-1996 Screening for malignant neoplasm of colon [facility] Start: 10-02-1996 SIGMOIDOSCOPY SIGMOIDOSCOPY [facility] Start: 10-02-1986 Lipid 1996 panel - Serum or Plasma Lipid Screening [facility] Start: 10-02-1986 LIPID SCREEN LIPID SCREEN [facility] Start: 10-02-1970 Urine microalbumin profile DTAP,TDAP,TD (1 - Tdap) [facility] Start: 10-02-1969 ANNUAL PCP TEAM CHRONIC DISEASE VISIT ANNUAL PCP TEAM CHRONIC DISEASE VISIT [facility] Start: 10-02-1969 Anxiety Screening Anxiety Screening [facility] Start: 10-02-1969 BP CONTROLLED (<130/80) BP CONTROLLED (<130/80) [facility] Start: 10-02-1969 Depression Screening Depression Screening [facility] Start: 10-02-1969 HEPATITIS C SCREENING HEPATITIS C SCREENING [facility] Start: 10-02-1969 Hepatitis C screening Hepatitis C Screening [facility] Start: 1967 COVID-19 Vaccine (1) COVID-19 Vaccine (1) [facility] Work Phone: Start: 1963 Adult depression screening assessment DEPRESSION SCREENING [facility] Start: 1950 Hepatitis B Vaccines (1 of 3 - 3-dose series) Hepatitis B Vaccines (1 of 3 - 3-dose series) [facility] Start: 1950 Hepatitis C screen Hepatitis C screen [place] Start: 1950 Medicare Advantage Annual Wellness Visit (AWV) Medicare Advantage Annual Wellness Visit (AWV) [facility] Start: 1950 Medicare Annual Wellness Visit Medicare Annual Wellness Visit (AWV) 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 Work Phone: Comment on above: q 12 months for 1 Occurrences starting 0 04/19/2023 until 04/18/2024 CT angiography of coronary arteries [facility] EKG 12 Lead EKG 12 Lead ECG Routine 11/29/2018 11:06 AM EDT [facility] [place] EKG 12 Lead EKG 12 Lead ECG Routine 08/23/2021 8:29 AM EDT [facility] Work Phone: Lipid 1996 panel - S jarrett or Plasma Lipid panel Lab Routine Mixed hyperlipidemia Ordered: 05/12/2024 Issue [facility] Work Phone: Comment on above: Ordered: 05/12/2024 End: 11-03-2019 ARMANI SOFYA DIGITAL SCREEN UNI LEFT ARMANI SOFYA DIGITAL SCREEN UNI LEFT Imaging Routine Once for 1 Occurrences starting 11/03/2019 until 11/03/2019 [facility] [place] Comment on above: Once for 1 Occurrences starting 11/03/19 until 11/03/2019 ARMANI SOFYA DIGITAL SCR EEN UNI LEFT [facility] [place] End: 10-28-2018 ARMANI SOFYA DIGITAL SCREEN UNI LEFT ARMANI SOFYA DIGITAL SCREEN UNI LEFT Imaging Routine Once for 1 Occurrences starting 10/28/2018 until 10/28/2018 [facility] [place] Comment on above: Once for 1 Occurrences starting 10/29/19 until 10/28/2018 End: 10-31-2020 Radiologic exam knee complete 4/more views XR KNEE GENERAL 4V AP BOTH/PA BOTH/LAT/MERC BILAT Radiology Routine Left knee pain, unspecified chronicity 1 Occurrences starting 10/02/2019 until 10/31/2020 [facility] Comment on above: 1 Occurrences starting 10/02/2019 until 10/31/2020 End: 06-18-2022 Us abdominal real time w/image limited US ABDOMEN LTD Radiology Routine Nausea Pain of upper abdomen 1 Occurrences starting 05/19/2021 until 06/18/2022 [facility] Work Phone: Comment on above: 1 Occurrences starting 05/19/2021 until 06/18/2022 End: 09-07-2025 XR HIP BILATERAL 5V PEL/AP/LAT EACH HIP XR HIP BILATERAL 5V PEL/AP/LAT EACH HIP Radiology Routine Pain 1 Occurrences starting 08/08/2024 until 09/07/2025 [facility] Work Phone: Comment on above: 1 Occurrences starting 08/08/2024 until 09/07/2025 XR HIP BILATERAL 5V PEL/AP/LAT EACH HIP XR HIP BILATERAL 5V PEL/AP/LAT EACH HIP Radiology Routine Pain 08/26/2024 2:37 PM EDT [facility] Work Phone: End: 09-07-2025 XR Knee - bilateral 4 Views XR KNEE GENERAL 4V AP BOTH/PA BOTH/LAT/MERC BILATERAL Radiology Routine Pain 1 Occurrences starting 08/08/2024 until 09/07/2025 [facility] Work Phone: Comment on above: 1 Occurrences starting 08/08/2024 until 09/07/2025 [facility] Immunizations Immunization Date Immunization Notes Care Provider [facility] 01-25-2024 COVID-19, mRNA, LNP- S, PF, 50 mcg/0.5 mL Danial Dempsey MD Work Phone: [facility] 03-02-2023 Influenza, High-dose Seasonal, Quadrivalent, Preservative Free Danial Dempsey MD Work Phone: [facility] 03-02-2023 influenza virus vacc ine, unspecified formulation Danial Dempsey MD Work Phone: [facility] 12-02-2021 Influenza, FLUZONE ( age 65 y+), High Dose, 0.7mL Marissa Loredo MD Work Phone: [facility] Work Phone: 12-02-2021 Influenza, Seasonal, Quadrivalent, Adjuvanted Danial Dempsey MD Work Phone: [facility] 12-02-2021 influenza virus vacc ine, unspecified formulation Danial Dempsey MD Work Phone: [facility] 11-02-2021 Covid-19, Moderna Bivalent Booster, (Age 18y+), Im, 50 Mcg/d Danial Dempsey MD Work Phone: [facility] 06-08-2021 Moderna SARS-CoV-2 Vaccination Danial Dempsey MD Work Phone: [facility] 12-07-2020 Moderna SARS-CoV-2 Vaccination Danial Dempsey MD Work Phone: [facility] 11-23-2020 influenza, high dose seasonal, preservative-free Marissa Loredo MD Work Phone: [facility] 11-23-2020 Influenza, Seasonal, Quadrivalent, Adjuvanted Danial Dempsey MD Work Phone: [facility] 11-23-2020 influenza virus vacc ine, unspecified formulation Franklyn Decapua PA-C Work Phone: [facility] 05-07-2020 COVID-19, J&J, PF, 0 .5 mL Danial Dempsey MD Work Phone: [facility] Work Phone: 02-19-2020 influenza, injectabl e, quadrivalent, contains preservative Franklyn Decapua PA-C Work Phone: [facility] 02-17-2020 Influenza, High-dose , Quadv, 65 yrs +, IM (Fluzone) Danial Dempsey MD Work Phone: [facility] Work Phone: 02-10-2019 zoster vaccine recombinant Danial Dempsey MD Work Phone: [facility] 12-11-2018 zoster vaccine recombinant Danial Dempsey [facility] 11-29-2018 influenza, high dose seasonal, preservative-free Danial Dempsey MD Work Phone: [facility] 11-29-2018 influenza, injectabl e, quadrivalent, preservative free [facility] [place] 11-29-2018 pneumococcal polysaccharide vaccine, 23 valent Danial Dempsey [facility] 12-06-2017 influenza, high dose seasonal, preservative-free [facility] 12-06-2017 Influenza, injectabl e, [facility] [place] [facility], preservative free, quadrivalent [facility], [place] 01-22-2017 influenza, high dose seasonal, preservative-free Marissa Testlillian [facility], [place] 01-22-2017 pneumococcal conjuga te vaccine, 13 valent Marissa Loredo [facility] 07-09-2015 tetanus toxoid, redu deborah diphtheria toxoid, and acellular pertussis vaccine, adsorbed Marissa Loredo [facility] 11-21-2012 Influenza Vaccine, unspecified formulation Danial Dempsey [place], [place] 11-21-2012 influenza, seasonal, injectable Danial Dempsey MD Work Phone: [facility] Payers Date Payer Category Payer Self-pay [id number] 2021 Medicare O [id number] 2019 Medicare AETNA MEDICARE A ETNA MEDICARE PPO [id number] 2019-Present PPO [id number] 2019 Medicare AETNA MEDICARE A ETNA MEDICARE PPO [id number] 2019-Present [phone] [address] [place] [address] O [id number] 2019 Medicare [id number] 2019 Medicare (Managed Care) 1.2. [id number] 2019 Medicare [id number] 2016 Medicare AETNA MEDICARE A ETNA MEDICARE-ADVANTAGE PPO [id number] 2016-Present [address] [place] [address] Medicare [id number] 2016 Medicare AETNA MEDICARE A ETNA MEDICARE-ADVANTAGE PPO [id number] 2016-Present [address] [place] [address] Medicare [id number] 2014 Unknown [facility] [id number] 1951 Unknown [id number] 2.16.840.1.448149.3.579.2.6 1951 Unknown [id number] 2.16.840.1.173765.3.579.2.6 1951 Unknown [id number] 2.16.840.1.411680.3.579.2.6 1951 Unknown [id number] 2.16.840.1.732018.3.579.2.6 68 1951 Unknown [id number] 2.16.840.1.611264.3.579.2.6 1951 Unknown [id number] 2.16.840.1.039051.3.579.2.6 68 1951 Unknown [id number] 2.16.840.1.853951.3.579.2.6 1951 Unknown [id number] 2.16.840.1.495990.3.579.2.6 1951 Unknown [id number] 2.16.840.1.479680.3.579.2.6 1951 Unknown [id number] 2.16.840.1.143473.3.579.2.3 56 1951 Unknown [id number] 2.16.840.1.731955.3.579.2.1 245 Private Health Insurance Unknown AETNA Unknown [facility] PACKAGE PLAN 0 [id number] Unknown [id number] 2.16.840.1.138037.3.579.2.4 62 Unknown [id number] 2.16.840.1.676132.3.579.2.4 62 Unknown [id number] 2.16.840.1.809877.3.579.2.4 62 Unknown [id number] 2.16.840.1.316331.3.579.2.4 62 Unknown [id number] 2.16.840.1.781295.3.579.2.4 62 Unknown [id number] 2.16.840.1.152003.3.579.2.4 62 Unknown [id number] 2.16.840.1.891703.3.579.2.4 62 Unknown [id number] 2.16.840.1.138568.3.579.2.4 62 Unknown [id number] 2.16.840.1.219853.3.579.2.4 62 Unknown [id number] 2.16.840.1.111478.3.579.2.4 62 Unknown [id number] 2.16.840.1.389899.3.579.2.4 62 Unknown [id number] 2.16.840.1.654301.3.579.2.4 62 Unknown [id number] 2.16.840.1.569551.3.579.2.4 62 Unknown [id number] 2.16.840.1.891411.3.579.2.4 62 Unknown [id number] 2.16.840.1.144290.3.579.2.4 62 Unknown [id number] 2.16.840.1.040951.3.579.2.4 62 Social History Date Type Detail Facility Start: 11-29-2018 End: 12-03-2024 Tobacco smoking status [facility] Never smoker [facility] Start: 11-29-2018 End: 07-11-2024 Alcohol intake Yes [place] Start: 11-16-2014 Alcohol Comment occass. [place] [place] Start: 1950 Sex Assigned At Not on file M maranda [place], [place] Start: 12-30-2018 End: 12-11-2024 Alcohol intake Current drinker of alcohol (finding) [place] Start: 03-14-2019 End: 12-21-2021 Tobacco use and exposure Never [facility] Start: 03-14-2019 History SDOH Education 15 [facility] Work Phone: Start: 03-14-2019 End: 05-26-2022 History SDOH Financial 5 [facility] Work Phone: Start: 03-14-2019 End: 05-26-2022 History SDOH Food Worry 1 [facility] Work Phone: Start: 03-14-2019 End: 05-26-2022 History SDOH Transport Med 2 [facility] Work Phone: Start: 03-14-2019 Alcohol Comment social drinking Ninfa moore [place] Start: 03-14-2019 Alcohol Comment social drinking [facility] Work Phone: Start: 07-30-2020 End: 07-11-2024 Alcohol intake [facility] Work Phone: Start: 12-20-2020 History SDOH Alcohol Comment Not weekly [facility] Start: 10-13-2019 End: 04-18-2024 Exposure to SARS-CoV-2 (event) Not sure [facility] Start: 04-14-2022 End: 11-06-2022 Tobacco smoking status NHIS Unknown if ever smoked [facility] Start: 1950 Sex Assigned At Male W [facility] How hard is it for y ou to pay for the very basics like food, housing, medical care, and heating Not hard at all [facility] (I/We) worried wheth er (my/our) food would run out before (I/we) got money to buy more. Never true [facility] How often to you hav e a drink containing alcohol? Monthly or less [facility] How many standard dr inks containing alcohol do you have on a typical day? 1 or 2 [facility] How often do you hav e 6 or more drinks on 1 occasion? Never [facility] Start: 02-01-2023 Alcohol Comment occasion [facility] Start: 07-22-2020 Alcohol Comment [facility] Start: 09-12-2021 End: 06-09-2024 Sex Male (finding) [facility] Do you feel stress - tense, restless, nervous, or anxious, or unable to sleep at night because your mind is troubled all the time - these days [OSQ] Not at all [facility] Has the [employer], [employer], or water company threatened to shut off services in your home in past 12Mo No [facility] Do you belong to any clubs or organizations such as adventist groups, unions, fraternal or athletic groups, or school groups? Yes [facility] Are you now , , , , never or living with a partner? [facility] NEGATED: Highlighted rowStart: NINF History of tobacco use Passive smoker [facility] Medical Equipment Procedure Code Equipment Code Equipment Origin al Text Equipment Identifier Dates Cement Simplex P Bone Radiopaque Full Dose Sterile - [id number] Start: 03-15-2020 Cement Simplex P Bone Radiopaque Full Dose Sterile - [id number] Start: 03-15-2020 Cement Simplex P Tobramycin Bone Full Dose Radiopaque Preblend Sterile - [id number] Start: 12-27-2020 Cement Simplex P Tobramycin Bone Full Dose Radiopaque Preblend Sterile - [id number] Start: 12-27-2020 Persona Imp Knee Surf Artc R 11 12/ [id number] Start: 03-15-2020 Insert Persona 8 -11 G-H Vivacit-E 12mm Articular Sterile Knee Left [id number] Start: 12-27-2020 Component Person a 12 Standard Cocr Femoral Cruciate Retain - [id number] Start: 03-15-2020 Component 35mm A ll Poly Patellar Psn - [id number] Start: 03-15-2020 Component Person a 11 Standard Cocr Femoral Cruciate Retain - [id number] Start: 12-27-2020 Component 35mm A ll Poly Patellar Psn - [id number] Start: 12-27-2020 Baseplate Person a 5d H Tivanium Tibial Cemented Stem Knee Right - [id number] Start: 03-15-2020 Extension Person a 14mm Taper 30+ Mm Stem Knee Tibia - [id number] Start: 03-15-2020 Extension Person a 14mm Taper 30+ Mm Stem Knee Tibia - [id number] Start: 12-27-2020 Baseplate Person a 5d H Tivanium Tibial Cemented Stem Knee Left - [id number] Start: 12-27-2020 [id number] FDA Start: 11-28-2023 [id number] FDA Start: 11-28-2023 [id number] FDA Start: 11-28-2023 [id number] FDA Start: 11-28-2023 Functional Status Date Assessment Result Facility 09-13-2024 Total score [AUDIT-C] 0 09/14/19 8:47 AM EDT June Carrasquillo RN [facility] 09-01-2024 Total score [AUDIT-C] 1 09/02/19 9:00 AM EDT Tessie Renae CONSULTANT TEACHER [facility] 07-11-2024 Total score [AUDIT-C] 07/12/19 8:33 AM EDT Tessie Renae CONSULTANT TEACHER [facility] 05-12-2024 Total score [AUDIT-C] 05/13/19 8:46 AM EDT Tessie Renae CONSULTANT TEACHER [facility] 12-28-2020 Are you deaf, or do you have serious difficulty hearing No 12/28/2020 2:17 PM Jazmin Camacho RN [facility] 12-28-2020 Are you blind, or do you have serious difficulty seeing, even when wearing glasses No 12/28/2020 2:17 PM Jazmin Camacho RN [facility] 12-28-2020 Do you have serious difficulty walking or climbing stairs No 12/28/2020 2:17 PM Jazmin Camacho RN No [facility] 12-28-2020 Do you have difficul ty dressing or bathing No 12/28/2020 2:17 PM Jazmin Camacho, JAVIER No [facility] 12-28-2020 Because of a physica l, mental, or emotional condition, do you have difficulty doing errands alone such as visiting a physician's office or shopping No 12/28/2020 2:17 PM Jazmin Camacho, JAVIER No [facility] Mental Status Date Assessment Result Facility 12-28-2020 Because of a physica l, mental, or emotional condition, do you have serious difficulty concentrating, remembering, or making decisions No 12/28/2020 2:17 PM Jazmin Camacho RN No [facility] Clinical Notes 11-12-2019 to 12-18-2024 Telephone Encounter - Ear Sheth - 12/18/2024 10:40 AM ESTTelephone Encounter - Era Sheth - 12/18/2024 10:40 AM ESTTelephone Encounter - Inga Simms - 12/17/2024 4:24 PM ESTPatient Instructions Note Date & Type Note Facility 12-18-2024 Telephone encounter Note Form atting of this note might be different from the original. Patient tentatively scheduled for sx 01/21. [facility] 12-18-2024 Miscellaneous Notes Formattin g of this note might be different from the original. Patient tentatively scheduled for sx 01/21. PT called back and is ready to schedule, he is requesting a call back. Spoke with patient and informed him we received his cardiac clearance. He stated he is going to discuss dates with his and call back to schedule. Cardiac clearance faxed 12/12, confirmation uploaded to [employer]. Cardiac clearance received 12/16, uploaded to [employer]. documented in this encounter [facility] 12-17-2024 Telephone encounter Note Form atting of this note might be different from the original. PT called back and is ready to schedule, he is requesting a call back. [facility] 12-17-2024 Miscellaneous Notes Formattin g of this note might be different from the original. PT called back and is ready to schedule, he is requesting a call back. Spoke with patient and informed him we received his cardiac clearance. He stated he is going to discuss dates with his and call back to schedule. Cardiac clearance faxed 12/12, confirmation uploaded to [employer]. Cardiac clearance received 12/16, uploaded to [employer]. documented in this encounter [facility] 12-16-2024 Telephone encounter Note Form atting of this note might be different from the original. Spoke with patient and informed him we received his cardiac clearance. He stated he is going to discuss dates with his and call back to schedule. [facility] 12-16-2024 Miscellaneous Notes Formattin g of this note might be different from the original. Spoke with patient and informed him we received his cardiac clearance. He stated he is going to discuss dates with his and call back to schedule. Cardiac clearance faxed 12/12, confirmation uploaded to [employer]. Cardiac clearance received 12/16, uploaded to media. documented in this encounter [facility] 12-16-2024 Telephone encounter Note Form atting of this note might be different from the original. Cardiac clearance faxed 12/12, confirmation uploaded to media. Cardiac clearance received 12/16, uploaded to media. [facility] 12-11-2024 History of Presen t illness Narrative Images from the original note were not included. [facility] - [address] [address] Dept: [phone] Dept 12/11/2024 Chief Complaint Patient presents with New Patient Bilateral hip pain Subjective: Abdifatah is a 74 y.o. male who presents with Bilateral hip pain located in the groin and LB. Right worse than left. Symptoms began gradually several years ago. Abdifatah describes the symptoms as aching. Symptoms improve with rest, medication: Tylenol used but not effective. The symptoms are exacerbated by activity, stair climbing, getting up from a chair, weight bearing, sitting for prolonged periods of time, ADL's. The patient does feel the pain is effecting their quality of life and activities of daily living. Previous treatment has consisted of: NSAIDS: No Tylenol: Yes Topicals: Yes Cortisone injections: No Assistive Devices: none Therapy/HEP: Yes HEP Narcotics: No Surgeries: No Activity modification: Yes Review of Systems Constitutional: Negative for activity change. HENT: Negative for congestion. Cardiovascular: Negative for leg swelling. Musculoskeletal: Positive for arthralgias, gait problem and joint swelling. Skin: Negative for wound. Neurological: Negative for weakness. Medical History[1] Surgical History[2] Social History Socioeconomic History Marital status: Spouse name: Not on file Number of children: Not on file Years of education: Not on file Highest education level: Not on file Occupational History Not on file Tobacco Use Smoking status: Never Passive exposure: Never Smokeless tobacco: Never Vaping Use Vaping status: Never Used Substance and Sexual Activity Alcohol use: Yes Comment: occasion Drug use: No Sexual activity: Not on file Other Topics Concern Not on file Social History Narrative Not on file Social Drivers of Health Financial Resource Strain: Low Risk (07/11/2024) Overall Financial Resource Strain (CARDIA) Difficulty of Paying Living Expenses: Not hard at all Food Insecurity: No Food Insecurity (07/11/2024) Hunger Vital Sign Worried About Running Out of Food in the Last Year: Never true Ran Out of Food in the Last Year: Never true Transportation Needs: No Transportation Needs (07/11/2024) PRAPARE - Transportation Lack of Transportation (Medical): No Lack of Transportation (Non-Medical): No Physical Activity: Insufficiently Active (07/11/2024) Exercise Vital Sign Days of Exercise per Week: 2 days Minutes of Exercise per Session: 30 min Stress: No Stress Concern Present (07/11/2024) [place] Citizen [place] [employer] Occupational Health - Occupational Stress Questionnaire Feeling of Stress : Not at all Social Connections: Moderately Integrated (07/11/2024) Social Connection and Isolation Panel [NHANES] Frequency of Communication with Friends and Family: Twice a week Frequency of Social Gatherings with Friends and Family: Twice a week Attends Muslim Services: Never Active Member of Clubs or Organizations: Yes Attends Club or Organization Meetings: More than 4 times per year Marital Status: Intimate Partner Violence: Not on file Housing Stability: Unknown (07/11/2024) Housing Stability Vital Sign Unable to Pay for Housing in the Last Year: No Number of Times Moved in the Last Year: Not on file Homeless in the Last Year: No Family History[3] Allergies[4] Objective: Ht 5' 8 (1.727 m) Wt 230 lb (104 kg) BMI 34.97 kg/m Pt is a WD/WN male in no acute distress. Abdifatah appears stated age. Mood and affect are normal. Abdifatah is A&O x 3. Gait: antalgic. RIGHT HIP: Skin is warm, dry and intact. No tenderness to palpation. Greater trochanter is not tender. ROM shows flexion 80, extension 0, IR 10, ER 20, with pain. Tredelenburg sign: negative. +PF/DF/EHL LEFT HIP: Skin is warm, dry and intact. No tenderness to palpation. Greater trochanter is not tender. ROM shows flexion 80, extension 0, IR 10, ER 20. , with pain. Tredelenburg sign: negative. +PF/DF/EHL The patient does not appreciate a leg length discrepancy and measures 0.5cm short right Ortho Exam XRAYS: I have personally interpreted the outside films pertinent to the appointment today at [facility] Indication: Bilateral hip pain Exam Ordered: Radiographs include an anteroposterior pelvis, an anteroposterior and lateral view of the proximal femur including the hip joint. Details of Examination: Today's exam shows evidence of joint space narrowing, osteophyte formation, and subchondral sclerosis, all consistent with degenerative arthritis of the hip. No other significant findings are noted. Impression: Severe Degenerative Arthritis, Right hip Assessment 1. Primary osteoarthritis of right hip 2. Primary osteoarthritis of left hip Plan This treatment will consist of... ~ Activity modification ~ Topical Voltaren ~ Tylenol ~ Surgery Anterior EDUARDO This patient has significant symptoms in their hip that are affecting their quality of life and daily activities. They have tried non-operative treatment including analgesics, an exercise program, and activity modification, but the symptoms have persisted. We believe they make a good candidate for hip arthroplasty. The risks and benefits of hip arthroplasty have been discussed with the patient which include, but are not limited to, infections (including severe sequelae), potential component failure, fracture, DVT, pulmonary embolus, nerve palsy, dislocation, leg length inequality, persistent pain, wound healing complications, transfusions and . Principal Care Management (PCM) services were recommended to this patient with a diagnosis of osteoarthritis who has failed conservative management and is indicated for, as well as undergone shared decision-making to undergo a total joint arthroplasty procedure. PCM services provided to the patient include but not limited to structured recording of patient health information within our electronic medical record system, 04/09 access and continuity of care to qualified practitioners and/or clinical staff, comprehensive care management and planning to optimize pre-surgical needs, choice of an appropriate surgical facility, preoperative patient education, and coordination of patient-specific carmencita-operative needs. This will be actively managed by the clinical staff with physician supervision throughout enrollment in the program. The clinical staff will help manage care transitions as well as coordinate home and community-based care as it pertains to the patient's needs. The patient expresses understanding and awareness of PCM services, including but not limited to potential cost- sharing responsibilities; only one practitioner can furnish and bill for PCM services during a calendar month, and the patient can stop these services at any time. The patient understands and has verbally consented to accept PCM services. We will need a 4wk post op check with WB AP pelvis and AP and frog leg and crossfire lateral of right hip. Procedure: right Total Hip Arthroplasty with Anterior Approach Time: 1 hours Diagnosis: 1. Primary osteoarthritis of right hip 2. 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 Patient will call us with any questions or concerns regarding this plan or if any significant issues arise. Electronically signed by Juan Velasco M.D. 12/11/2024 at 10:10 AM. Dictated using [facility] Version 2.4 Proof read however unrecognized voice recognition errors may have occurred [1] Past Medical History: Diagnosis Date BRCA1 negative BRCA2 negative Breast cancer (HCC) 2009 Hx antineoplastic chemo 2009 Hypertension Macrocytic anemia 10/15/2020 No b 12 or folate def. 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 Personal history of irradiation 2009 [2] Past Surgical History: Procedure Laterality Date MASTECTOMY Right tamoxifien [3] Family History Problem Relation Name Age of Onset Liver disease Mother BAILEY Breast cancer Sister 40 Kidney disease Other dye-induced renal failre Breast cancer Father's Brother Breast cancer Mother's Sister [4] No Known Allergies documented in this encounter [facility] 12-03-2024 Progress note [facility] 11-26-2024 Note HNO ID: [id number] Author: CELINA GARCIA MD Service: ? Author Type: Physician Type: Progress Notes Filed: 11/26/2024 12:29 Note Text: CONSULT ORTHOPAEDIC: KNEE PRIMARY CARE PHYSICIAN: Danial Dempsey MD REFERRING PROVIDER: Celina Garcia [address] [facility] [address] ASSESSMENT AND PLAN Impression: Right knee pain Right hip severe arthritis Diagnoses: No diagnosis found. After discussion with Abdifatah Macario, the patient would like to pursue EDUARDO (anterior approach). 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 It is anticipated he will be able to discontinue his anticoagulant medications. Once he is able to be a surgical candidate he wishes to purse joint replacement. He will follow up with another provider who utilizes the approach he desires. The patient has been ordered: No orders found for this visit on 11/26/24. No orders placed today. CONSULTS: Patient does not require consults for optimization at this time. Total Joint Athroplasty - Risk Calculator Risk Factors for Total Knee Arthroplasty (TKA) Major Risk Factors Obesity Moderate Risk High: BMI > 40 Moderate: BMI 30-40 Normal: BMI < 30 Diabetes normal High: A1C > 8 Moderate: A1C 7-8 Normal: A1C < 7 Hx of DVT / PE normal High: dx of DVT / PE Normal: no dx of DVT / PE Smoking normal High: Current smoker Normal: Non smoker Narcotics Use normal High:NarxCare >=300 Moderate: 100-299 Normal: 0-99 Depression Unknown Risk High: PHQ-9 >14 Moderate: PHQ-9 5-14 Normal: PHQ-9 < 5 Area Deprivation Index (CHRISTOS) normal High: CHRISTOS Score > 75 Moderate: CHRISTOS 50-75 Normal: CHRISTOS < 50 Obesity: weight management recommended BMI Readings from Last 3 Encounters: 08/26/24 : 35.73 kg/m? 05/13/21 : 35.28 kg/m? 12/27/20 : 34.97 kg/m? Area Deprivation Index (CHRISTOS) 08/26/2024 CHRISTOS Score National Score 40 Patient Health Questionnaire (PHQ-9) No data to display (0-4) minimal depression, (5-9) mild depression, (10-14) moderate depression, (15-19) moderately severe depression, (20-27) severe depression Bone Density Risk Screen Abdifatah Macario is at risk for bone loss and has not had a bone densitometry scan in the last 2 years (date of last scan: 07/20/2015). Recommend a bone densitometry scan and if indicated on the bone density results, a consult to a bone health specialist (Rheumatology, Endocrinology, or Women's Health) for bone assessment. Risk Factors: Use of Furosemide Use of Proton Pump Inhibitors Prednisone or use of systemic steroids Additional Risk Factors Anemia Hemoglobin (g/dL) Date Value 12/28/2020 10.7 12/20/2020 13.4 Past Orthopaedic Surgery: Abdifatah had knee surgery on 12/27/2020 with Celina Garcia. Malnutrition: No Malnutrition Screening Tool (MST) score on file- please complete the MST screening tool (click here to open) and refresh the note. 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 Breast Cancer in Male (Hcc) Essential Hypertension Hyperlipidemia Patent Foramen Ovale (Hcc) Class 2 Obesity Due to Excess Calories With Body Mass Index (Bmi) of 35.0 to 35.9 in Adult Status Post Total Right Knee Replacement Primary Osteoarthritis of Left Knee Heart Murmur Bph (Benign Prostatic Hyperplasia) Anemia Bilateral Leg Edema Prediabetes Status Post Total Knee Replacement, Left SUBJECTIVE CHIEF COMPLAINT: Knee Pain HPI: Abdifatah Macario is a 74 year old patient . Abdifatah Macario has had progressive problems with the knee(s) multiple times a day over the past 6 month(s) interfering with activities which include rising from a sitting position, standing for prolonged periods of time, and climbing stairs. The problem began limiting activities 1-6 months ago. Patient describes his knee pain as the sensation of a tight band around his right knee. Additionally he complains of right groin pain that seems to radiate down his leg around his knee. Patient is aware he has right hip osteoarthritis but is not currently a surgical candidate due to his cardiac history. He does have follow up with his supervisor modern languages next week. After he is cleared to do so, he intends to pursue EDUARDO. He feels his knee pain is related to his hip. PROMIS Physical Function Score No data to display FUNCTIONAL STATUS: Walk indoors, such as around the house (1.75 METs) Do light work around the house, such as dusting or washing dishes (2.70 METs) Take care of self, that is eating, dressing, bathing, using the toilet (2.75 METs) Walk a block or two on level ground (2.75 METs) Do moderate work around the house such as vacuuming, sweeping floors, or carrying in groceries (3.50 METs) Do yardwork, such as raking leaves, weeding,or pushing a power mower (4.50 METs) Climb a flight of stairs or walk up a hill (5.50 METs) Participate in moderate recreational activities, such as golf, bowling, dancing, doubles tennis, or throwing a baseball (more content not included)... [facility] 11-26-2024 Note HNO ID: [id number] Author: FELY AKINS RT(R) Service: ? Author Type: Economic Historian Type: Progress Notes Filed: 11/26/2024 11:13 Note Text: Radiology Service Progress Note PATIENT NAME: Abdifatah Macario DATE OF SERVICE: November 26, 2024 TIME: 11:12 AM PATIENT IDENTITY VERIFICATION COMPLETED USING TWO (2) IDENTIFIERS: Name and Date of confirmed by patient verbally. FALL SCREENING: Has the patient had 2 falls in the last year or 1 fall with injury or currently using an Ambulatory Assistive Device (Walker, Cane, Wheelchair, Crutches, etc.)? No PATIENT GENDER DATA: Assigned male at PATIENT RELEVANT IMPLANT DATA REVIEWED: Not Applicable PATIENT PRESENTS WITH AN IMPLANTABLE OR ATTACHED COMMISSIONING MANAGER: No RADIOLOGY DEPARTMENT: General X-ray: Exam(s) Completed: Lower Extremity X-Ray(s): Knee, AP / Lat / Tunne / Merchant Bilateral PERIPHERAL IV DATA: Not applicable SIGNED BY: RT Julio César(R) November 26, 2024 11:12 AM [facility] 10-15-2024 Telephone encounter Note Called and spoke with patient but he stated he would like to call back at a more convenient time since he was driving Should patient return call please assist him in scheduling a medicare Annual Wellness exam and a F/U appointment that is due in December [facility] 10-15-2024 Miscellaneous Notes Called and spoke with patient but he stated he would like to call back at a more convenient time since he was driving Should patient return call please assist him in scheduling a medicare Annual Wellness exam and a F/U appointment that is due in December documented in this encounter [employer] 10-09-2024 History of Present illness Narrative Images from the original note were not included. [facility] [place] [facility] [address] [place] [address] Dept: [phone] Dept PHYSICAL THERAPY RE-EVALUATION Patient Name: Ilir Macario : 1950 Date of Service: 10/09/2024 Referring Provider: Danial Dempsey MD Visit #: [id number] Diagnosis: Lumbar back pain with radiculopathy affecting left lower extremity Mechanism of injury: insidious onset and worsening of low back pain Patient Preferences: Ilir Subjective General Comments: Ilir says he feels like he is continuing to make a little bit of progress. Says he feels like a a little higher in the back is feeling better, massage helped that. Says his overall endurance has been helped but he is still having low back pain. Says that he was busy last night and so he is having pain today. Says he can push through things but that it is still hard. Says it is still difficult to do his yard work and walking for longer distances. He says he feels about 70% functional at this time. Pain: Current: 5/10 across low back Best: 2/10 Worst: 9/10 Current Level of Function: independent with some pain Patient s Stated Goal: reduce pain Objective BACK Oswestry Disability Index (X/50): 13 Posture/Observation: forward head and rounded shoulders Gait: WFL Date Recorded: 10/09/2024 Trunk AROM Percentage Comments Flexion (flex) 100 Extension (ext) 0 pain Right side bending (SBR) 100 Left side bending (SBL) 100 Right rotation (rotR) 100 Left rotation (rotL) 100 Date Recorded: 10/09/2024 Comments Lower Extremity ROM Right Left AROM AROM Hip Flexion 93 115 Myotomes/LE Strength Right X/5 Left X/5 Comments Hip Flexion (L2-L3) 5 5 Hip Abduction 5 5 Hip Extension 4+ 4+ Knee Extension (L3-L4) 5 5 Knee Flexion (S2) 5 5 Ankle DF (L5) 5 5 Ankle PF (S1) 5 5 Joint Mobility: hypomobile lumbar spine Palpation: non-tender to palpation Flexibility: no abnormalities Special Tests: Straight Leg Raise: right negative and left negative 5 time Pwt-sd-Fqajp (seconds): 12.38 - Use of upper extremities?: No - Chair Height (standard chair 16-18 inches): 17 Functional Squat: proper form, lack of depth SLS: R: 8 sec L: 20 sec Assessment Ilir has made progress with physical therapy. He has improved his range of motion, reduced his 5xsts time, increased his strength, and self reports improving function. Despite these improvements he does still have pain, weakness, and limited range of motion and mobility. He would benefit from continued skilled physical therapy in order to address remaining deficits and progress to higher levels of functioning Rehab Potential: Good Goals Active General/Ortho Patient will be able to walk 2 miles without pain to improve community ambulation. (Progressing) Start: 08/14/24 Expected End: 01/09/25 Patient will decrease Oswestry Disability Index from a 15 to a 5 to show a decrease in pain with ADLs. (Progressing) Start: 08/14/24 Expected End: 01/09/25 Patient will increase R hip flexion from a 72 and L hip flexion from a 100 to 120 for improve gait. (Progressing) Start: 08/14/24 Expected End: 01/09/25 Patient will increase hip strength to a 5/5 to improve ability to complete functional tasks. (Progressing) Start: 08/14/24 Expected End: 01/09/25 Plan Frequency and Duration: on hold for vacation, if returns 2/wk for 4 weeks Therapeutic Contents: client education, group therapy, home exercise program, manual therapy techniques, neuromuscular re-education, therapeutic activities, therapeutic exercise, trigger point dry needle, and modalities as needed Plan for next session: continue strengthening, balance progressions, STM for pain control Risks and benefits were discussed with the patient and/or family, and the patient and/or family participated with the plan of care and agrees. Treatment Patient Education: re-evaluation (billed as therapeutic activity due to multiple components of function were involved) Home Exercise Program: continue current Time Entry Total Treatment Time Start Time: 2108 Stop Time: 2129 Time Calculation (min): 21 min PT Therapeutic Procedures Time Entry Therapeutic Activity Time Entry: 21 [place], PT documented in this encounter [facility] 10-02-2024 History of Present illness Narrative Images from the original note were not included. [facility] [place] [facility] AT [address] [place] [address] Dept: [phone] Dept PHYSICAL THERAPY TREATMENT Patient Name: Ilir Macario : 1950 Date of Service: 10/02/2024 Referring Provider: Danial Dempsey MD Visit #: 15 Diagnosis: Lumbar back pain with radiculopathy affecting left lower extremity Mechanism of injury: insidious onset and worsening of low back pain Patient Preferences: Ilir Subjective Pt reports that he feels alright today, feels that strength is his biggest issue at this point. Feels that STM is really helpful also. Compliance with HEP: Yes Objective Objective measurements not taken today. Treatment Therapeutic Activity # of Activities: 12 Therapeutic Activity 1: NuStep warm up for endurance and ROM Activity 1 Comment: x5 min lvl 7, seat 10, UE 9 Therapeutic Activity 4: Hip hikes at stairs Activity 4 Comment: 3 x 10 B #3 Therapeutic Activity 5: Mini Squats Activity 5 Comment: 3 x10 Therapeutic Activity 6: resisted walking, 70# (Both handles), Activity 6 Comment: Lat B x 5 ea Therapeutic Activity 7: Romanian ball rollouts- Fwd/ lat B Activity 7 Comment: x 15 ea, 10 holds Home Exercise Program: Progressed home exercise program Assessment Skilled physical therapy interventions utilized to improve patient s impairments and work towards established goals. Patient response to treatment: Focused session on hip/ core stabilization on this date. Increased resistance for hip hikes and added ball rollouts to home program. Reports feeling that his back feels fatigued but not more painful post appointment. Patient will benefit from continued physical therapy to improve muscular stabilization and benefit QOL. The rationale for today s treatment was explained to the patient. Verbal cues were provided for correct form with all exercises. Advised patient to continue with Home Exercise Program (HEP). Goals General/Ortho Patient will be able to walk 2 miles without pain to improve community ambulation. (Progressing) Start: 08/14/24 Expected End: 10/15/24 Patient will decrease Oswestry Disability Index from a 15 to a 5 to show a decrease in pain with ADLs. (Progressing) Start: 08/14/24 Expected End: 10/15/24 Patient will increase R hip flexion from a 72 and L hip flexion from a 100 to 120 for improve gait. (Progressing) Start: 08/14/24 Expected End: 10/15/24 Patient will increase hip strength to a 5/5 to improve ability to complete functional tasks. (Progressing) Start: 08/14/24 Expected End: 10/15/24 Plan Plan for next session: Progress strength and continue flexibility as needed. Resume STM Time Entry Total Treatment Time Start Time: 932 Stop Time: 958 Time Calculation (min): 26 min PT Therapeutic Procedures Time Entry Therapeutic Activity Time Entry: Almas Rascon PTA Cosigned by West Miller PT at 10/02/2024 11:47 AM EDT documented in this encounter [facility] 09-30-2024 History of Present illness Narrative Images from the original note were not included. [facility] AT [address] [place] [address] Dept: [phone] Dept PHYSICAL THERAPY TREATMENT Patient Name: Ilir Macario : 1950 Date of Service: 09/30/2024 Referring Provider: Danial Dempsey MD Visit #: 14 Diagnosis: Lumbar back pain with radiculopathy affecting left lower extremity Subjective Pt reports that he has a little pain in his back today, has been tasking prednisone after a dental procedure which seems to be helping his pain a lot. Compliance with HEP: Yes Objective Objective measurements not taken today. Treatment Therapeutic Activity # of Activities: 12 Therapeutic Activity 1: NuStep warm up for endurance and ROM Activity 1 Comment: x5 min lvl 7, seat 10, UE 9 Therapeutic Activity 5: Mini Squats Activity 5 Comment: 3 x10 Therapeutic Activity 6: resisted walking, 70# (Both handles), x 5 d/b ea Activity 6 Comment: Fwd/ bkwd, bkwd/ fwd, lat B Therapeutic Activity 9: TKE Activity 9 Comment: 3 x 10 B, #50 Home Exercise Program: Deferred Assessment Skilled physical therapy interventions utilized to improve patient s impairments and work towards established goals. Patient response to treatment: Continued hip/ LE and core strengthening exercises on this date. Continued resisted walking but maintained weight d/t pt stating this was adequately challenging. Added TKE with black band to HEP to help with B LE extension. Pt reports feeling fatigued post appointment but had no increase in pain. Patient will benefit from continued physical therapy to reduce painful symptoms and achieve PT goals. The rationale for today s treatment was explained to the patient. Verbal cues were provided for correct form with all exercises. Advised patient to continue with Home Exercise Program (HEP). Goals General/Ortho Patient will be able to walk 2 miles without pain to improve community ambulation. (Progressing) Start: 08/14/24 Expected End: 10/15/24 Patient will decrease Oswestry Disability Index from a 15 to a 5 to show a decrease in pain with ADLs. (Progressing) Start: 08/14/24 Expected End: 10/15/24 Patient will increase R hip flexion from a 72 and L hip flexion from a 100 to 120 for improve gait. (Progressing) Start: 08/14/24 Expected End: 10/15/24 Patient will increase hip strength to a 5/5 to improve ability to complete functional tasks. (Progressing) Start: 08/14/24 Expected End: 10/15/24 Plan Plan for next session: Progress LE/ hip and core stability as tolerated Time Entry Total Treatment Time Start Time: 931 Stop Time: 956 Time Calculation (min): 25 min PT Therapeutic Procedures Time Entry Therapeutic Activity Time Entry: Almas Rascon PTA Cosigned by sEtiven Aldrich PT at 09/30/2024 10:31 AM EDT documented in this encounter Issue 09-25-2024 History of Present illness Narrative Images from the original note were not included. [facility] AT [place] [id number] [place] [address] Dept: [phone] Dept PHYSICAL THERAPY TREATMENT Patient Name: Ilir Macario : 1950 Date of Service: 09/25/2024 Referring Provider: Danial Dempsey MD Visit #: 13 Diagnosis: Lumbar back pain with radiculopathy affecting left lower extremity Subjective Patient reporting the back seems to be doing better. He is noticing while walking he is not hurting. Compliance with HEP: Yes Objective Objective measurements not taken today. Treatment Therapeutic Activity # of Activities: 12 Therapeutic Activity 1: NuStep warm up for endurance and ROM Activity 1 Comment: x5 min lvl 7, seat 10 Therapeutic Activity 4: Resisted 3 way hips Activity 4 Comment: lvl ; 2x10 Therapeutic Activity 5: Mini Squats on foam Activity 5 Comment: 2x10 Therapeutic Activity 6: resisted walking Activity 6 Comment: sideways x5 and backwards x10; 70# d/b Therapeutic Activity 9: TKE Activity 9 Comment: Lvl 2; 2x10 B Home Exercise Program: Encouraged to add TB to 3 way hips Assessment Skilled physical therapy interventions utilized to improve patient s impairments and work towards established goals. Patient response to treatment: Activity for strength, ROM, and stabilization of hip, core, and back. Proper mechanics, no increased symptoms and minimal cues for mechanics. Patient will benefit from continued physical therapy to address pain, ROM, and strength. The rationale for today s treatment was explained to the patient. Verbal cues were provided for correct form with all exercises. Advised patient to continue with Home Exercise Program (HEP). Goals General/Ortho Patient will be able to walk 2 miles without pain to improve community ambulation. (Progressing) Start: 08/14/24 Expected End: 10/15/24 Patient will decrease Oswestry Disability Index from a 15 to a 5 to show a decrease in pain with ADLs. (Not Addressed) Start: 08/14/24 Expected End: 09/03/25 Patient will increase R hip flexion from a 72 and L hip flexion from a 100 to 120 for improve gait. (Progressing) Start: 08/14/24 Expected End: 10/15/24 Patient will increase hip strength to a 5/5 to improve ability to complete functional tasks. (Progressing) Start: 08/14/24 Expected End: 10/15/24 Plan Plan for next session: Progress hip and core as tolerated. Consider Sports Cord activities. Time Entry Total Treatment Time Start Time: 931 Stop Time: 958 Time Calculation (min): 27 min PT Therapeutic Procedures Time Entry Therapeutic Activity Time Entry: Jhon Kidd PTA Cosigned by West Miller PT at 09/25/2024 11:29 AM EDT documented in this encounter [facility] 09-23-2024 History of Present illness Narrative Images from the original note were not included. [facility] AT [address] [place] [address] Dept: [phone] Dept PHYSICAL THERAPY TREATMENT Patient Name: Ilir Macario : 1950 Date of Service: 09/23/2024 Referring Provider: Danial Dempsey MD Visit #: 12 Diagnosis: Lumbar back pain with radiculopathy affecting left lower extremity Subjective Ilir says he is doing well today. Did a lot of hot air balloon flying over the weekend. Compliance with HEP: Yes Objective Objective measurements not taken today. Treatment Therapeutic Activity # of Activities: 10 Therapeutic Activity 1: NuStep warm up for endurance and ROM Activity 1 Comment: x3 min lvl 8, x3 min lvl 6, seat 10 Therapeutic Activity 3: Rows/Pull Downs Activity 3 Comment: 2x10; 40# Therapeutic Activity 4: Step Ups Activity 4 Comment: 6 3x10 forward and lateral Therapeutic Activity 5: Mini Squats on foam Activity 5 Comment: 2x10 Therapeutic Activity 6: resisted walking Activity 6 Comment: sideways and backwards 60# 5x d/b each Therapeutic Activity 7: LEAH Lunge Activity 7 Comment: Forward and Lateral 3x10 ea Home Exercise Program: Progressed home exercise program Assessment Skilled physical therapy interventions utilized to improve patient s impairments and work towards established goals. Progressions of Le strength and stability today Patient response to treatment: able to complete all exercises, fatigued post session indicating a proper challenge Patient will benefit from continued physical therapy to reduce pain, improve strength, increase stability, and progress to higher levels of functioning The rationale for today s treatment was explained to the patient. Verbal cues were provided for correct form with all exercises. Advised patient to continue with Home Exercise Program (HEP). Goals General/Ortho Patient will be able to walk 2 miles without pain to improve community ambulation. (Progressing) Start: 08/14/24 Expected End: 10/15/24 Patient will decrease Oswestry Disability Index from a 15 to a 5 to show a decrease in pain with ADLs. (Not Addressed) Start: 08/14/24 Expected End: 10/15/24 Patient will increase R hip flexion from a 72 and L hip flexion from a 100 to 120 for improve gait. (Progressing) Start: 08/14/24 Expected End: 10/15/24 Patient will increase hip strength to a 5/5 to improve ability to complete functional tasks. (Progressing) Start: 08/14/24 Expected End: 10/15/24 Plan Plan for next session: sport cord exercises, 3 way hip resisted, TKE Time Entry Total Treatment Time Start Time: 1515 Stop Time: 1555 Time Calculation (min): 40 min PT Therapeutic Procedures Time Entry Therapeutic Activity Time Entry: 40 [place] Miller PT documented in this encounter [facility] 09-19-2024 History of Present illness Narrative Images from the original note were not included. [facility] [place] [facility] AT [address] [place] [address] Dept: [phone] Dept PHYSICAL THERAPY TREATMENT Patient Name: Ilir Macario : 1950 Date of Service: 09/19/2024 Referring Provider: Danial Dempsey MD Visit #: 11 Diagnosis: Lumbar back pain with radiculopathy affecting left lower extremity Mechanism of injury: insidious onset and worsening of low back pain Patient Preferences: Ilir Precautions/Red Flags: Yes HTN Subjective No new complaints since last visit. Compliance with HEP: Yes Objective Objective measurements not taken today. Treatment Therapeutic Activity # of Activities: 10 Therapeutic Activity 1: NuStep warm up for endurance and ROM Activity 1 Comment: x3 min lvl 8, x3 min lvl 6, seat 10 Therapeutic Activity 3: Rows/Pull Downs Activity 3 Comment: 2x10; 40# Therapeutic Activity 4: Step Ups Activity 4 Comment: 4 2x10 forward and lateral Therapeutic Activity 5: Mini Squats on foam Activity 5 Comment: 2x10 Therapeutic Activity 7: BOSU Lunge Activity 7 Comment: Forward and Lateral x10 ea Therapeutic Activity 8: Blaze Pod Obstacle Course 2x2 min Activity 8 Comment: Over Katheryn, On Foam, 4/8 step, flat ground; 20 taps, 26 taps. Soft Tissue Mobilization Location: STM to B lumbar paraspinals, lower thoracic paraspinals Body Position: Prone Comments: Reports most discomfort in superior lumbar paraspinals Home Exercise Program: Deferred Assessment Skilled physical therapy interventions utilized to improve patient s impairments and work towards established goals. Patient response to treatment: Patient doing well with activity this date with slight cervical flexion. Patient taking time with Blaze pod activity, and felt relief from STM. Performed postural activity with appropriate mechanics. Patient will benefit from continued physical therapy to address pain, ROM, and strength. The rationale for today s treatment was explained to the patient. Verbal cues were provided for correct form with all exercises. Advised patient to continue with Home Exercise Program (HEP). Goals General/Ortho Patient will be able to walk 2 miles without pain to improve community ambulation. (Progressing) Start: 08/14/24 Expected End: 10/15/24 Patient will decrease Oswestry Disability Index from a 15 to a 5 to show a decrease in pain with ADLs. (Progressing) Start: 08/14/24 Expected End: 10/15/24 Patient will increase R hip flexion from a 72 and L hip flexion from a 100 to 120 for improve gait. (Progressing) Start: 08/14/24 Expected End: 10/15/24 Patient will increase hip strength to a 5/5 to improve ability to complete functional tasks. (Progressing) Start: 08/14/24 Expected End: 10/15/24 Plan Plan for next session: Continue current program and progress as tolerated. Time Entry Total Treatment Time Start Time: 917 Stop Time: 100 Time Calculation (min): 43 min PT Therapeutic Procedures Time Entry Therapeutic Exercise Time Entry: 35 Manual Therapy Time Entry: 8 Jhon Kidd PTA Cosigned by Estiven Aldrich PT at 09/19/2024 12:38 PM EDT documented in this encounter [facility] 09-17-2024 History of Present illness Narrative Images from the original note were not included. [facility] AT [address] [place] [address] Dept: [phone] Dept PHYSICAL THERAPY TREATMENT Patient Name: Ilir Macario : 1950 Date of Service: 09/17/2024 Referring Provider: Danial Dempsey MD Visit #: 10 Diagnosis: Lumbar back pain with radiculopathy affecting left lower extremity Mechanism of injury: insidious onset and worsening of low back pain Patient Preferences: Ilir Precautions/Red Flags: Yes HTN Subjective Patient reporting back and leg feel okay. The more activity performed, the back feels worse. The knee is most stiff in the morning. Compliance with HEP: Yes Objective Objective measurements not taken today. Treatment Therapeutic Activity # of Activities: 10 Therapeutic Activity 1: NuStep warm up for endurance and ROM Activity 1 Comment: x6 min, seat 10, lvl 4 Therapeutic Activity 2: Paloff Press Activity 2 Comment: 2x10; 40# Therapeutic Activity 3: Rows/Pull Downs Activity 3 Comment: 2x10; 40# Therapeutic Activity 4: Step Ups Activity 4 Comment: 4 2x10 forward and lateral Therapeutic Activity 5: Mini Squats Activity 5 Comment: 2x10 Therapeutic Activity 6: SLS on Foam Activity 6 Comment: x30 B FTS Soft Tissue Mobilization Location: STM to B lumbar paraspinals, lower thoracic paraspinals Home Exercise Program: Deferred Assessment Skilled physical therapy interventions utilized to improve patient s impairments and work towards established goals. Patient response to treatment: Patient tolerating activity well throughout today's session with no increased symptoms. [place] benefit from STM. Patient will benefit from continued physical therapy to address pain, ROM, and strength. The rationale for today s treatment was explained to the patient. Verbal cues were provided for correct form with all exercises. Advised patient to continue with Home Exercise Program (HEP). Goals General/Ortho Patient will be able to walk 2 miles without pain to improve community ambulation. (Progressing) Start: 08/14/24 Expected End: 10/15/24 Patient will decrease Oswestry Disability Index from a 15 to a 5 to show a decrease in pain with ADLs. (Progressing) Start: 08/14/24 Expected End: 10/15/24 Patient will increase R hip flexion from a 72 and L hip flexion from a 100 to 120 for improve gait. (Progressing) Start: 08/14/24 Expected End: 10/15/24 Patient will increase hip strength to a 5/5 to improve ability to complete functional tasks. (Progressing) Start: 08/14/24 Expected End: 10/15/24 Plan Plan for next session: Progress hip and core as tolerated while focusing on LE strength and stability. Introduce balance. Time Entry Total Treatment Time Start Time: 925 Stop Time: 100 Time Calculation (min): 38 min PT Therapeutic Procedures Time Entry Therapeutic Activity Time Entry: 26 Manual Therapy Time Entry: 12 Jhon Kidd PTA Cosigned by Mildred Roberts PT at 09/17/2024 10:33 AM EDT documented in this encounter [facility] 09-13-2024 Note Evaluation of the oral cavity and overlying soft tissues is limited due to extensive beam hardening artifact from dental amalgam. Within limits of the examination, unremarkable exam. Report Dictated on Electronically Signed By: Rambo Boyer MD Electronically Signed Date/Time: 09/13/2024 11:05 AM [facility] 09-13-2024 Emergency department Note [facility] ED eMERGENCY dEPARTMENT eNCOUnter Pt Name: Abdifatah Macario Birthdate 1950 Date of evaluation: 09/13/2024 Provider: Tangela Young PA-C CHIEF COMPLAINT Chief Complaint Patient presents with Jaw Pain Pt states he had dental surgery on and has had increased pain on right jaw since then. Pt believes he might have some swelling. Denies bleeding or drainage HISTORY OF PRESENT ILLNESS (Location/Symptom, Timing/Onset,Context/Setting, Quality, Duration, Modifying Factors, Severity) Note limiting factors. HPI Abdifatah Macario is a 73 y.o. male who presents to the emergency department complaining of worsening right jaw pain after dental procedure this past Sunday. Patient is being fitted for a bridge. He had 4 dental blocks done as they had some difficulty getting him completely comfortable. He states he is having increasing pain and at one of the injection sites and is concerned he may have an abscess versus a hematoma as he is on anticoagulation therapy. He states he is having difficulty fully opening his jaw. No complaint of fever. Nursing Notes were reviewed. REVIEW OF SYSTEMS (2+ for4; 10+ for level 5) Review of Systems Constitutional: Negative for chills and fever. HENT: Positive for dental problem. Negative for ear pain and sore throat. Eyes: Negative for pain and visual disturbance. Respiratory: Negative for cough and shortness of breath. Cardiovascular: Negative for chest pain and palpitations. Gastrointestinal: Negative for abdominal pain and vomiting. Genitourinary: Negative for dysuria and hematuria. Musculoskeletal: Negative for arthralgias and back pain. Skin: Negative for color change and rash. Neurological: Negative for seizures and syncope. All other systems reviewed and are negative. PAST MEDICAL HISTORY Medical History[1] SURGICALHISTORY Surgical History[2] CURRENT MEDICATIONS Discharge Medication List as of 09/13/2024 11:32 AM CONTINUE these medications which have NOT CHANGED Details aspirin 81 MG EC tablet Take 81 mg by mouth daily., Historical Med cholecalciferol (Vitamin D-3) 50 MCG (1999) tablet Take by mouth., Historical Med coenzyme Q-10 200 MG capsule Take 1 tablet by mouth in the morning., Historical Med cyanocobalamin (Vitamin B-12) 1000 MCG tablet Take 2,000 mcg by mouth in the morning., Historical Med famotidine (Pepcid) 20 MG tablet TAKE ONE TABLET BY MOUTH AT BEDTIME DIRECTED, Historical Med furosemide (Lasix) 20 MG tablet TAKE 1-2 TABLETS DAILY NEEDED FOR DECREASING EDEMA, Normal ipratropium (Atrovent) 0.03 % nasal spray USE 2 SPRAYS IN EACH NOSTRIL EVERY 12 HOURS NEEDED FOR RHINITIS, Normal magnesium oxide (Mag-Ox) 400 MG tablet Take 400 mg by mouth Daily as needed (CRAMPS)., Historical Med metaxalone (Skelaxin) 800 MG tablet Take 1 tablet (800 mg) by mouth 2 times daily as needed for muscle spasms., Starting Sun03/07/2024, Until 03/07/2025 at 2359, Normal metoprolol tartrate (Lopressor) 25 MG tablet Take 25 mg by mouth 2 times daily., Historical Med MULTIPLE VITAMINS-MINERALS PO Take 1 tablet by mouth in the morning., Historical Med omega-3 (fish oil) 1400 MG capsule Take 1,000 mg by mouth daily., Historical Med pantoprazole (ProtoNix) 40 MG EC tablet TAKE 1 TABLET DAILY, Starting 11/27/2022, Normal potassium chloride ER (Micro-K) 10 MEQ ER capsule Take 1 capsule (10 mEq) by mouth 2 times daily. Do not crush or chew., Starting Sun11/28/2023, Until Katelyn 11/27/2024, Normal rosuvastatin (Crestor) 40 MG tablet TAKE 1 TABLET NIGHTLY, Starting Sun02/27/2024, Normal tamsulosin (Flomax) 0.4 MG 24 hr capsule TAKE 1 CAPSULE DAILY, Starting Sun04/07/2024, Normal ticagrelor (Brilinta) 90 MG tablet Take 90 mg by mouth 2 times daily., Historical Med Patient has no known allergies. FAMILY HISTORY Family History[3] SOCIAL HISTORY Social History[4] SCREENINGS PHYSICAL EXAM (5+ for level 4, 8+ for level 5) @EDTRIAGEVSS@ Physical Exam Vitals and nursing note reviewed. Constitutional: General: He is not in acute distress. Appearance: Normal appearance. He is well-developed. HENT: Head: Normocephalic and atraumatic. Mouth/Throat: Mouth: Mucous membranes are moist. Eyes: Conjunctiva/sclera: Conjunctivae normal. Cardiovascular: Rate and Rhythm: Normal rate and regular rhythm. Heart sounds: No murmur heard. Pulmonary: Effort: Pulmonary effort is normal. No respiratory distress. Breath sounds: Normal breath sounds. Musculoskeletal: General: No swelling. Skin: General: Skin is warm and dry. Capillary Refill: Capillary refill takes less than 2 seconds. Neurological: General: No focal deficit present. Mental Status: He is alert and oriented to person, place, and time. Psychiatric: Mood and Affect: Mood normal. Behavior: Behavior normal. DIAGNOSTIC RESULTS EKG (Per Emergency Physician): RADIOLOGY (Per EmergencyPhysician): Interpretation per the Radiologist below, if available at the time of this note: @EDRISRSLT@ : Labs Reviewed CBC WITH AUTO DIFFERENTIAL - Abnormal Result Value Auto WBC 6.5 RBC 4.43 Hemoglobin 12.9 (*) Hematocrit 38.6 (*) MCV 87.1 MCH 29.1 MCHC 33.4 RDW 14.3 Platelets 247 MPV 9.2 nRBC 0.0 Neutrophils Relative 59.5 Lymphocytes Relative 26.5 Monocytes Relative 9.0 Eosinophils Relative 4.1 Basophils Relative 0.6 Immature Grans % 0.3 Neutrophils Absolute 3.9 Lymphocytes Absolute 1.7 Monocytes Absolute 0.6 Eosinophils Absolute 0.3 Basophils Absolute 0.0 Immature Grans Absolute 0.0 BASIC METABOLIC PANEL - Normal SODIUM 139 POTASSIUM 4.3 CHLORIDE 106 CARBON DIOXIDE 24 UREA NITROGEN 16 CREATININE 0.93 GLUCOSE 114 CALCIUM 8.9 ANION GAP 9 eGFR 87.2 All other labs were within normal range or not returned as of this dictation. EMERGENCY DEPARTMENT COURSE and DIFFERENTIALDIAGNOSIS/MDM: Vitals: Vitals: 09/13/24 0847 09/13/24 1138 BP: (!) 145/81 (!) 141/85 BP Location: Right arm Right arm Patient Position: Sitting Sitting Pulse: 70 60 Resp: 16 18 Temp: 36.5 C (97.7 F) TempSrc: Temporal SpO2: 96% 97% Medications sodium chloride 0.9 % bolus 1,000 mL (0 mL IntraVENous Stopped 09/13/24 1052) iopamidol (Isovue-370) 76 % injection 75 mL (75 mL IntraVENous Given 09/13/24 1051) Medical Decision Making Problems Addressed: Pain, dental: complicated acute illness or injury Amount and/or Complexity of Data Reviewed Labs: ordered. Radiology: ordered. Risk Prescription drug management. Patient presents to the emergency department with ongoing and increasing right jaw pain status post dental work on Sunday. Patient states he was given 4 dental injections for anesthesia and it is the injection site that is bothering him. He is concerned he may have a large hematoma there as he is currently on Brilinta. He also has concern for abscess. Patient had prophylactic antibiotics prior to the procedure but is not currently on any antibiotic therapy. Differential diagnosis includes hematoma of injection site, dental abscess, dental pain Chronic conditions impacting care: Total knee replacement, BPH, coronary stent, CAD, chronic back pain, ADHD, breast cancer, Cheung's esophagus, hypertension, macrocytic anemia Social determinants affecting health: None ED diagnostics interpreted by me included CBC and BMP. CT scan of the soft tissues of the neck, per radiologist review, shows no acute findings. ED medications: None External medical records reviewed: None Patient will be discharged home. He is given home-going instruction on dental pain. He is to have close follow-up with his dentist and in the meantime I will send a prescription for amoxicillin and a small amount of Percocet to his local pharmacy. He is advised he could return should signs and symptoms worsen in any way or any other concerns develop. The patient expressed an understanding of verbal instruction and had no further questions at the time of discharge. This patient was seen by myself, within my scope of practice, with the Emergency Department physician available for consultation at all times if needed. CONSULTS: None PROCEDURES: Unless otherwise noted below, none Procedures Patients symptoms are consistent with sepsis, severe sepsis, or septic shock (If yes use .sepsiscoremeasure): No FINAL IMPRESSION 1. Pain, dental DISPOSITION/PLAN DISPOSITION Discharge 09/13/2024 11:14:13 AM PATIENT REFERRED TO: Your Dentist In 3 days DISCHARGE MEDICATIONS: Discharge Medication List as of 09/13/2024 11:32 AM START taking these medications Details amoxicillin (Amoxil) 875 MG tablet Take 1 tablet (875 mg) by mouth 2 times daily for 10 days., Starting 09/13/2024, Until 09/23/2024, Normal oxyCODONE-acetaminophen (Percocet) 5-325 MG tablet Take 1 tablet by mouth every 6 hours as needed for severe pain (7-10) for up to 2 days., Starting 09/13/2024, Until 09/15/2024 at 2359, Normal @[facility]([id number]:LAST:1)@ (Please note: Portions of this note were completed with a voice recognition program. 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 Likely related to fci effectas of chemo. Personal history of irradiation 2009 [2] Past Surgical History: Procedure Laterality Date MASTECTOMY Right tamoxifien [3] Family History Problem Relation Name Age of Onset Liver disease Mother BAILEY Breast cancer Sister 40 Kidney disease Other dye-induced renal failre Breast cancer Father's Brother Breast cancer Mother's Sister [4] Social History Socioeconomic History Marital status: Tobacco Use Smoking status: Never Passive exposure: Never Smokeless tobacco: Never Vaping Use Vaping status: Never Used Substance and Sexual Activity Alcohol use: Yes Comment: occasion Drug use: No Social Drivers of Health Financial Resource Strain: Low Risk (07/11/2024) Overall Financial Resource Strain (CARDIA) Difficulty of Paying Living Expenses: Not hard at all Food Insecurity: No Food Insecurity (07/11/2024) Hunger Vital Sign Worried About Running Out of Food in the Last Year: Never true Ran Out of Food in the Last Year: Never true Transportation Needs: No Transportation Needs (07/11/2024) PRAPARE - Transportation Lack of Transportation (Medical): No Lack of Transportation (Non-Medical): No Physical Activity: Insufficiently Active (07/11/2024) Exercise Vital Sign Days of Exercise per Week: 2 days Minutes of Exercise per Session: 30 min Stress: No Stress Concern Present (07/11/2024) [place] Citizen [place] [employer] Occupational Health - Occupational Stress Questionnaire Feeling of Stress : Not at all Social Connections: Moderately Integrated (07/11/2024) Social Connection and Isolation Panel [NHANES] Frequency of Communication with Friends and Family: Twice a week Frequency of Social Gatherings with Friends and Family: Twice a week Attends Muslim Services: Never Active Member of Clubs or Organizations: Yes Attends Club or Organization Meetings: More than 4 times per year Marital Status: Housing Stability: Unknown (07/11/2024) Housing Stability Vital Sign Unable to Pay for Housing in the Last Year: No Homeless in the Last Year: No Tangela Young PA-C 09/13/24 1656 documented in this encounter [facility] 09-13-2024 Physician Emergency department Note [facility] ED eMERGENCY dEPARTMENT eNCOUnter Pt Name: Abdifatah Macario Birthdate 1950 Date of evaluation: 09/13/2024 Provider: Tangela Young PA-C CHIEF COMPLAINT Chief Complaint Patient presents with Jaw Pain Pt states he had dental surgery on and has had increased pain on right jaw since then. Pt believes he might have some swelling. Denies bleeding or drainage HISTORY OF PRESENT ILLNESS (Location/Symptom, Timing/Onset,Context/Setting, Quality, Duration, Modifying Factors, Severity) Note limiting factors. HPI Abdifatah Macario is a 73 y.o. male who presents to the emergency department complaining of worsening right jaw pain after dental procedure this past Sunday. Patient is being fitted for a bridge. He had 4 dental blocks done as they had some difficulty getting him completely comfortable. He states he is having increasing pain and at one of the injection sites and is concerned he may have an abscess versus a hematoma as he is on anticoagulation therapy. He states he is having difficulty fully opening his jaw. No complaint of fever. Nursing Notes were reviewed. REVIEW OF SYSTEMS (2+ for4; 10+ for level 5) Review of Systems Constitutional: Negative for chills and fever. HENT: Positive for dental problem. Negative for ear pain and sore throat. Eyes: Negative for pain and visual disturbance. Respiratory: Negative for cough and shortness of breath. Cardiovascular: Negative for chest pain and palpitations. Gastrointestinal: Negative for abdominal pain and vomiting. Genitourinary: Negative for dysuria and hematuria. Musculoskeletal: Negative for arthralgias and back pain. Skin: Negative for color change and rash. Neurological: Negative for seizures and syncope. All other systems reviewed and are negative. PAST MEDICAL HISTORY Medical History[1] SURGICALHISTORY Surgical History[2] CURRENT MEDICATIONS Discharge Medication List as of 09/13/2024 11:32 AM CONTINUE these medications which have NOT CHANGED Details aspirin 81 MG EC tablet Take 81 mg by mouth daily., Historical Med cholecalciferol (Vitamin D-3) 50 MCG (1999) tablet Take by mouth., Historical Med coenzyme Q-10 200 MG capsule Take 1 tablet by mouth in the morning., Historical Med cyanocobalamin (Vitamin B-12) 1000 MCG tablet Take 2,000 mcg by mouth in the morning., Historical Med famotidine (Pepcid) 20 MG tablet TAKE ONE TABLET BY MOUTH AT BEDTIME DIRECTED, Historical Med furosemide (Lasix) 20 MG tablet TAKE 1-2 TABLETS DAILY NEEDED FOR DECREASING EDEMA, Normal ipratropium (Atrovent) 0.03 % nasal spray USE 2 SPRAYS IN EACH NOSTRIL EVERY 12 HOURS NEEDED FOR RHINITIS, Normal magnesium oxide (Mag-Ox) 400 MG tablet Take 400 mg by mouth Daily as needed (CRAMPS)., Historical Med metaxalone (Skelaxin) 800 MG tablet Take 1 tablet (800 mg) by mouth 2 times daily as needed for muscle spasms., Starting 03/07/2024, Until 03/07/2025 at 2359, Normal metoprolol tartrate (Lopressor) 25 MG tablet Take 25 mg by mouth 2 times daily., Historical Med MULTIPLE VITAMINS-MINERALS PO Take 1 tablet by mouth in the morning., Historical Med omega-3 (fish oil) 1400 MG capsule Take 1,000 mg by mouth daily., Historical Med pantoprazole (ProtoNix) 40 MG EC tablet TAKE 1 TABLET DAILY, Starting 11/27/2022, Normal potassium chloride ER (Micro-K) 10 MEQ ER capsule Take 1 capsule (10 mEq) by mouth 2 times daily. Do not crush or chew., Starting Sun11/28/2023, Until Katelyn 11/27/2024, Normal rosuvastatin (Crestor) 40 MG tablet TAKE 1 TABLET NIGHTLY, Starting Sun02/27/2024, Normal tamsulosin (Flomax) 0.4 MG 24 hr capsule TAKE 1 CAPSULE DAILY, Starting 04/07/2024, Normal ticagrelor (Brilinta) 90 MG tablet Take 90 mg by mouth 2 times daily., Historical Med Patient has no known allergies. FAMILY HISTORY Family History[3] SOCIAL HISTORY Social History[4] SCREENINGS PHYSICAL EXAM (5+ for level 4, 8+ for level 5) @EDTRIAGEVSS@ Physical Exam Vitals and nursing note reviewed. Constitutional: General: He is not in acute distress. Appearance: Normal appearance. He is well-developed. HENT: Head: Normocephalic and atraumatic. Mouth/Throat: Mouth: Mucous membranes are moist. Eyes: Conjunctiva/sclera: Conjunctivae normal. Cardiovascular: Rate and Rhythm: Normal rate and regular rhythm. Heart sounds: No murmur heard. Pulmonary: Effort: Pulmonary effort is normal. No respiratory distress. Breath sounds: Normal breath sounds. Musculoskeletal: General: No swelling. Skin: General: Skin is warm and dry. Capillary Refill: Capillary refill takes less than 2 seconds. Neurological: General: No focal deficit present. Mental Status: He is alert and oriented to person, place, and time. Psychiatric: Mood and Affect: Mood normal. Behavior: Behavior normal. DIAGNOSTIC RESULTS EKG (Per Emergency Physician): RADIOLOGY (Per EmergencyPhysician): Interpretation per the Radiologist below, if available at the time of this note: @EDRISRSLT@ : Labs Reviewed CBC WITH AUTO DIFFERENTIAL - Abnormal Result Value Auto WBC 6.5 RBC 4.43 Hemoglobin 12.9 (*) Hematocrit 38.6 (*) MCV 87.1 MCH 29.1 MCHC 33.4 RDW 14.3 Platelets 247 MPV 9.2 nRBC 0.0 Neutrophils Relative 59.5 Lymphocytes Relative 26.5 Monocytes Relative 9.0 Eosinophils Relative 4.1 Basophils Relative 0.6 Immature Grans % 0.3 Neutrophils Absolute 3.9 Lymphocytes Absolute 1.7 Monocytes Absolute 0.6 Eosinophils Absolute 0.3 Basophils Absolute 0.0 Immature Grans Absolute 0.0 BASIC METABOLIC PANEL - Normal SODIUM 139 POTASSIUM 4.3 CHLORIDE 106 CARBON DIOXIDE 24 UREA NITROGEN 16 CREATININE 0.93 GLUCOSE 114 CALCIUM 8.9 ANION GAP 9 eGFR 87.2 All other labs were within normal range or not returned as of this dictation. EMERGENCY DEPARTMENT COURSE and DIFFERENTIALDIAGNOSIS/MDM: Vitals: Vitals: 09/13/24 0847 09/13/24 1138 BP: (!) 145/81 (!) 141/85 BP Location: Right arm Right arm Patient Position: Sitting Sitting Pulse: 70 60 Resp: 16 18 Temp: 36.5 C (97.7 F) TempSrc: Temporal SpO2: 96% 97% Medications sodium chloride 0.9 % bolus 1,000 mL (0 mL IntraVENous Stopped 09/13/24 1052) iopamidol (Isovue-370) 76 % injection 75 mL (75 mL IntraVENous Given 09/13/24 1051) Medical Decision Making Problems Addressed: Pain, dental: complicated acute illness or injury Amount and/or Complexity of Data Reviewed Labs: ordered. Radiology: ordered. Risk Prescription drug management. Patient presents to the emergency department with ongoing and increasing right jaw pain status post dental work on Sunday. Patient states he was given 4 dental injections for anesthesia and it is the injection site that is bothering him. He is concerned he may have a large hematoma there as he is currently on Brilinta. He also has concern for abscess. Patient had prophylactic antibiotics prior to the procedure but is not currently on any antibiotic therapy. Differential diagnosis includes hematoma of injection site, dental abscess, dental pain Chronic conditions impacting care: Total knee replacement, BPH, coronary stent, CAD, chronic back pain, ADHD, breast cancer, Cheung's esophagus, hypertension, macrocytic anemia Social determinants affecting health: None ED diagnostics interpreted by me included CBC and BMP. CT scan of the soft tissues of the neck, per radiologist review, shows no acute findings. ED medications: None External medical records reviewed: None Patient will be discharged home. He is given home-going instruction on dental pain. He is to have close follow-up with his dentist and in the meantime I will send a prescription for amoxicillin and a small amount of Percocet to his local pharmacy. He is advised he could return should signs and symptoms worsen in any way or any other concerns develop. The patient expressed an understanding of verbal instruction and had no further questions at the time of discharge. This patient was seen by myself, within my scope of practice, with the Emergency Department physician available for consultation at all times if needed. CONSULTS: None PROCEDURES: Unless otherwise noted below, none Procedures Patients symptoms are consistent with sepsis, severe sepsis, or septic shock (If yes use .sepsiscoremeasure): No FINAL IMPRESSION 1. Pain, dental DISPOSITION/PLAN DISPOSITION Discharge 09/13/2024 11:14:13 AM PATIENT REFERRED TO: Your Dentist In 3 days DISCHARGE MEDICATIONS: Discharge Medication List as of 09/13/2024 11:32 AM START taking these medications Details amoxicillin (Amoxil) 875 MG tablet Take 1 tablet (875 mg) by mouth 2 times daily for 10 days., Starting 09/13/2024, Until 09/23/2024, Normal oxyCODONE-acetaminophen (Percocet) 5-325 MG tablet Take 1 tablet by mouth every 6 hours as needed for severe pain (7-10) for up to 2 days., Starting 09/13/2024, Until 09/15/2024 at 2359, Normal @[facility]([id number]:LAST:1)@ (Please note: Portions of this note were completed with a voice recognition program. 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 Likely related to fci effectas of chemo. Personal history of irradiation 2009 [2] Past Surgical History: Procedure Laterality Date MASTECTOMY Right tamoxifien [3] Family History Problem Relation Name Age of Onset Liver disease Mother BAILEY Breast cancer Sister 40 Kidney disease Other dye-induced renal failre Breast cancer Father's Brother Breast cancer Mother's Sister [4] Social History Socioeconomic History Marital status: Tobacco Use Smoking status: Never Passive exposure: Never Smokeless tobacco: Never Vaping Use Vaping status: Never Used Substance and Sexual Activity Alcohol use: Yes Comment: occasion Drug use: No Social Drivers of Health Financial Resource Strain: Low Risk (07/11/2024) Overall Financial Resource Strain (CARDIA) Difficulty of Paying Living Expenses: Not hard at all Food Insecurity: No Food Insecurity (07/11/2024) Hunger Vital Sign Worried About Running Out of Food in the Last Year: Never true Ran Out of Food in the Last Year: Never true Transportation Needs: No Transportation Needs (07/11/2024) PRAPARE - Transportation Lack of Transportation (Medical): No Lack of Transportation (Non-Medical): No Physical Activity: Insufficiently Active (07/11/2024) Exercise Vital Sign Days of Exercise per Week: 2 days Minutes of Exercise per Session: 30 min Stress: No Stress Concern Present (07/11/2024) [place] Citizen [place] [employer] Occupational Health - Occupational Stress Questionnaire Feeling of Stress : Not at all Social Connections: Moderately Integrated (07/11/2024) Social Connection and Isolation Panel [NHANES] Frequency of Communication with Friends and Family: Twice a week Frequency of Social Gatherings with Friends and Family: Twice a week Attends Muslim Services: Never Active Member of Clubs or Organizations: Yes Attends Club or Organization Meetings: More than 4 times per year Marital Status: Housing Stability: Unknown (07/11/2024) Housing Stability Vital Sign Unable to Pay for Housing in the Last Year: No Homeless in the Last Year: No Tangela Young PA-C 09/13/24 1656 [facility] 09-09-2024 History of Present illness Narrative Images from the original note were not included. [facility] [place] [facility] AT [address] [place] [address] Dept: [phone] Dept PHYSICAL THERAPY TREATMENT Patient Name: Ilir Macario : 1950 Date of Service: 09/09/2024 Referring Provider: Danial Dempsey MD Visit #: 8 Diagnosis: Lumbar back pain with radiculopathy affecting left lower extremity Mechanism of injury: insidious onset and worsening of low back pain Patient Preferences: Ilir Pal[place]/Red Flags: Yes HTN Subjective Pt reports that he feels like things are moving in the right direction. Feels that STM helps a lot. Compliance with HEP: Yes Objective Objective measurements not taken today. Treatment Therapeutic Exercise # of Activities: 8 Therapeutic Exercise Activity 1: Palloff press Activity 1 Comment: 2 x 10 B, 40# Therapeutic Exercise Activity 2: Rows and PD's w/ TA Activity 2 Comment: 3 x 10 ea, #40 Therapeutic Exercise Activity 3: TA 90/90 Activity 3 Comment: 3 x 10 Therapeutic Exercise Activity 4: Hip hikes at stairs Activity 4 Comment: 3 x 10 B, #2 Therapeutic Exercise Activity 5: S/L hip abd Activity 5 Comment: 2 x 15, OTB Therapeutic Exercise Activity 7: TA 90/90 heel taps Activity 7 Comment: 3 x 10 Therapeutic Exercise Activity 8: Piriformis and figure 4 stretches Activity 8 Comment: x 30 ea B Soft Tissue Mobilization Location: STM to B lumbar paraspinals, lower thoracic paraspinals Body Position: Prone Comments: Reports most discomfort in superior lumbar paraspinals Home Exercise Program: Progressed home exercise program Assessment Skilled physical therapy interventions utilized to improve patient s impairments and work towards established goals. Patient response to treatment: Continued core and hip strengthening exercises on this date. Added resistance to hip hikes and progressed weight for cable column exercises without issue. Also added OTB for S/L hip abduction, reported feeling a good challenge with progressions today. Also added TA 90/90 heel taps to HEP, good form and tolerance observed. Ended session by continuing STM, reports feeling less tightness in his back post session. Patient will benefit from continued physical therapy to reduce painful symptoms and work towards LTG's. The rationale for today s treatment was explained to the patient. Verbal cues were provided for correct form with all exercises. Advised patient to continue with Home Exercise Program (HEP). Goals General/Ortho Patient will be able to walk 2 miles without pain to improve community ambulation. (Progressing) Start: 08/14/24 Expected End: 10/15/24 Patient will decrease Oswestry Disability Index from a 15 to a 5 to show a decrease in pain with ADLs. (Progressing) Start: 08/14/24 Expected End: 10/15/24 Patient will increase R hip flexion from a 72 and L hip flexion from a 100 to 120 for improve gait. (Progressing) Start: 08/14/24 Expected End: 10/15/24 Patient will increase hip strength to a 5/5 to improve ability to complete functional tasks. (Progressing) Start: 08/14/24 Expected End: 10/15/24 Plan Plan for next session: Reassess pt Time Entry Total Treatment Time Start Time: 901 Stop Time: 941 Time Calculation (min): 40 min PT Therapeutic Procedures Time Entry Therapeutic Exercise Time Entry: 26 Manual Therapy Time Entry: 14 Almas Rascon TROUBLE LOCATER Cosigned by Estiven Aldrich PT at 09/09/2024 10:03 AM EDT documented in this encounter [facility] 09-04-2024 History of Present illness Narrative Images from the original note were not included. [facility] AT [place] [address] [place] [address] Dept: [phone] Dept PHYSICAL THERAPY TREATMENT Patient Name: Ilir Macario : 1950 Date of Service: 09/04/2024 Referring Provider: Danial Dempsey MD Visit #: 7 Diagnosis: Lumbar back pain with radiculopathy affecting left lower extremity Mechanism of injury: insidious onset and worsening of low back pain Patient Preferences: Ilir Precautions/Red Flags: Yes HTN Subjective Pt reports that he was feeling really good after last session but that he flared his back/ hip up again with yard work, thinks it was from twisting too much. Compliance with HEP: Yes Objective Objective measurements not taken today. Treatment Therapeutic Exercise # of Activities: 7 Therapeutic Exercise Activity 1: Palloff press Activity 1 Comment: 2 x 10 B, 35# (Both handles) Therapeutic Exercise Activity 2: Rows and PD's w/ TA Activity 2 Comment: 3 x 10 ea, #35 Therapeutic Exercise Activity 3: TA 90/90 Activity 3 Comment: 3 x 10 Soft Tissue Mobilization Location: STM to B lumbar paraspinals and proximal to PSIS Body Position: Prone Comments: Reports most discomfort in superior lumbar paraspinals Home Exercise Program: Deferred Assessment Skilled physical therapy interventions utilized to improve patient s impairments and work towards established goals. Patient response to treatment: Continued core stability and MT combination on this date. Did add in postural stability along with TA exercises, good tolerance and form with both rows and PD's following brief cues for form. Also reviewed TA marches without issue, stated just feeling a good burn in core mm's. Ended session by continuing STM, reports feeling Much better post session. Patient will benefit from continued physical therapy to reduce painful symptoms and benefit QOL. The rationale for today s treatment was explained to the patient. Verbal cues were provided for correct form with all exercises. Advised patient to continue with Home Exercise Program (HEP). Goals General/Ortho Patient will be able to walk 2 miles without pain to improve community ambulation. (Progressing) Start: 08/14/24 Expected End: 10/15/24 Patient will decrease Oswestry Disability Index from a 15 to a 5 to show a decrease in pain with ADLs. (Progressing) Start: 08/14/24 Expected End: 10/15/24 Patient will increase R hip flexion from a 72 and L hip flexion from a 100 to 120 for improve gait. (Progressing) Start: 08/14/24 Expected End: 10/15/24 Patient will increase hip strength to a 5/5 to improve ability to complete functional tasks. (Progressing) Start: 08/14/24 Expected End: 10/15/24 Plan Plan for next session: Progress core/ hip stability as able, can continue with postural stability as time allows. End with STM. Time Entry Total Treatment Time Start Time: 1032 Stop Time: 1058 Time Calculation (min): 26 min PT Therapeutic Procedures Time Entry Therapeutic Exercise Time Entry: 13 Manual Therapy Time Entry: 13 Almas Rascon PTA Cosigned by West Miller PT at 09/04/2024 11:08 AM EDT documented in this encounter [facility] 09-01-2024 Evaluation + Plan note Associated Problem(s): Lumbar back pain with radiculopathy affecting left lower extremity Continue PT. Awating hip surgery. [facility] 09-01-2024 Evaluation + Plan note Associated Problem(s): Capillary leak syndrome Controlled with lasix. Supplemental potassium. Consider magnesium, 400 mg at hs as well to help decrease muscle cramps. [facility] 09-01-2024 Miscellaneous Notes Associated Problem(s): Lumbar back pain with radiculopathy affecting left lower extremity Continue PT. Awating hip surgery. Associated Problem(s): Capillary leak syndrome Controlled with lasix. Supplemental potassium. Consider magnesium, 400 mg at hs as well to help decrease muscle cramps. Associated Problem(s): Prediabetes Declines s metformin which could help decrease likelihood of progression to diabetes but is weight neutral. Continue diet, exercise, awaiting starting GLP1 via study through his supervisor [employer]. Associated Problem(s): 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 Sx's well controlled with protonix daily and pepcid most days as needed for sx's.he [place] with GI in the near future. Associated Problem(s): Essential hypertension Stable, controlled. 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 Anticipate single platelet therapy after that time. Stable. Continue metoprolol, rosuvastatin, ticagrelor, ASA, documented in this encounter [facility] 09-01-2024 Evaluation + Plan note Associated Problem(s): Prediabetes Declines s metformin which could help decrease likelihood of progression to diabetes but is weight neutral. Continue diet, exercise, awaiting starting GLP1 via study through his supervisor [employer]. [facility] 09-01-2024 Note Declines s metformin which could help decrease likelihood of progression to diabetes but is weight neutral. Continue diet, exercise, awaiting starting GLP1 via study through his supervisor [employer]. [facility] 09-01-2024 Evaluation + Plan note Associated Problem(s): 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 Sx's well controlled with protonix daily and pepcid most days as needed for sx's.he [place] with GI in the near future. [facility] 09-01-2024 Evaluation + Plan note Associated Problem(s): Essential hypertension Stable, controlled. 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 Anticipate single platelet therapy after that time. Stable. Continue metoprolol, rosuvastatin, ticagrelor, ASA, [facility] 09-01-2024 History of Present illness Narrative Pt asked if they have been to specialist,been in ER /hospitalized or had testing since last visit. Yes pt, Patient was able to ambulate safely to the examination room. Provider was not notified of possible fall risk Images from the original note were not included. [place] [address] [facility] [id number] Dept: [phone] Dept Loc: [phone] Visit type: Established patient Reason for Visit: Follow-up (Back and hip pain) Assessment and Plan Problem List Items Addressed This Visit Respiratory Incidental lung nodule, > 3mm and < 8mm - Primary Overview Stable 5 mm noncalcified nodule lateral aspect right upper lobe. 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 Mild diffuse LAD, distal disease. Mod luminal disease up to 50% prox circ. [facility] 11/28/2023. See in media Current Assessment & Plan Brillinta through 11/27/2024, per cardio. Anticipate single platelet therapy after that time. Stable. Continue metoprolol, rosuvastatin, ticagrelor, ASA, Essential hypertension Current Assessment & Plan Stable, controlled. Continue meds as above Digestive 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 Overview egd dec 2015 Current Assessment & Plan Sx's well controlled with protonix daily and pepcid most days as needed for sx's.he [place] base with GI in the near future. Endocrine/Metabolic Obesity, morbid (HCC) Prediabetes Overview Insurance will only cover GLP-1 if patient is diabetic. Current Assessment & Plan Declines s metformin which could help decrease likelihood of progression to diabetes but is weight neutral. Continue diet, exercise, awaiting starting GLP1 via study through his supervisor [employer]. Other Capillary leak syndrome Overview Last Assessment & Plan: Assessment: Patient reports this is chronic, started after chemotherapy. Takes Lasix, wears compression stockings. Current Assessment & Plan Controlled with lasix. Supplemental potassium. Consider magnesium, 400 mg at hs as well to help decrease muscle cramps. Lumbar back pain with radiculopathy affecting left lower extremity Current Assessment & Plan Continue PT. Awating hip surgery. Follow up in about 4 months (around 01/02/2025) for blood pressure, cad, edema, back and hip pain. Dr Deng. 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 Overall med compliance Osteo arthritis and DJD of spine: going to PT for back and hips. Is helping. Hopes to have hip resurfacing after has completed brillinta treatment for stent. Unable to take nsaid's due to CAD. Takes metaxolone at HS more than once a week for neck muscle spasms with good relief and no over sedation reported. Meralgia paresthetica on left side, not painful, just numb. Cheung's esophagitis/ bile reflux gastritis: well controlled with daily pantoprazole with famotidine as needed. Unable to go without famotidine for more than a few days in a row. Capillary leak syndrome from effects of past chemotherapy, resulting in chronic LE edema: taking lasix 40 mg most days. Takes micro k on days he takes lasix. Obesity/ prediabetes: is hoping to enter a study under his supervisor [employer] to get a GLP-1. Has been unsuccessful in weight loss. Declines metformin at this time. CAD with stent: denies any chest pain, decreased exercise tolerance, change in edema. Chronic SOB with bending over to tie shoes. Review of Systems Allergies[1] Social History Tobacco Use Smoking status: Never Passive exposure: Never Smokeless tobacco: Never Substance Use Topics Alcohol use: Yes Comment: occasion to Lori. Hobbies include hot air ballooning. Objective BP 115/73 Pulse 60 Temp 36.6 C (97.8 F) (Oral) Ht 5' 7 (1.702 m) Wt 243 lb 6.4 oz (110 kg) BMI 38.12 kg/m Physical Exam Vitals and nursing note reviewed. Constitutional: Appearance: Normal appearance. He is obese. Cardiovascular: Rate and Rhythm: Normal rate and regular rhythm. Heart sounds: Normal heart sounds. No murmur heard. No gallop. Pulmonary: Effort: Pulmonary effort is normal. Breath sounds: Normal breath sounds. No wheezing, rhonchi or rales. Abdominal: Comments: protuberant Skin: General: Skin is warm and dry. Neurological: General: No focal deficit present. Mental Status: He is alert and oriented to person, place, and time. Cranial Nerves: No cranial nerve deficit. Psychiatric: Mood and Affect: Mood normal. Behavior: Behavior normal. Thought Content: Thought content normal. Judgment: Judgment normal. Data Reviewed and Summarized Labs: No visits with results within 1 Day(s) from this visit. Latest known visit with results is: Office Visit on 07/11/2024 Component Date Value Ref Range Status GLUCOSE 07/11/2024 115 (H) 65 - 99 mg/dL Final Comment: Fasting reference interval For someone without known diabetes, a glucose value between 100 and 125 mg/dL is consistent with prediabetes and should be confirmed with a follow-up test. Urea Nitrogen (BUN) 07/11/2024 14 7 - 25 mg/dL Final Creatinine 07/11/2024 1.14 0.70 - 1.28 mg/dL Final EGFR 07/11/2024 68 > OR = 60 mL/min/1.73m2 Final BUN/CREATININE RATIO 07/11/2024 SEE NOTE: 6 - 22 (calc) Final Comment: Not Reported: BUN and Creatinine are within reference range. SODIUM 07/11/2024 140 135 - 146 mmol/L Final POTASSIUM 07/11/2024 3.9 3.5 - 5.3 mmol/L Final CHLORIDE 07/11/2024 101 98 - 110 mmol/L Final Carbon Dioxide (CO2) 07/11/2024 28 20 - 32 mmol/L Final ELECTROLYTE BALANCE 07/11/2024 11 7 - 17 mmol/L (calc) Final CALCIUM 07/11/2024 8.7 8.6 - 10.3 mg/dL Final Imaging/Testing: Danial Dempsey MD [1] No Known Allergies documented in this encounter [facility] 08-28-2024 History of Present illness Narrative Images from the original note were not included. [facility] [place] [facility] [place] [id number] [place] [address] Dept: [phone] Dept PHYSICAL THERAPY TREATMENT Patient Name: Ilir Macario : 1950 Date of Service: 08/28/2024 Referring Provider: Danial Dempsey MD Visit #: 5 Diagnosis: Lumbar back pain with radiculopathy affecting left lower extremity Mechanism of injury: insidious onset and worsening of low back pain Patient Preferences: Ilir Precautions/Red Flags: Yes HTN Subjective Pt reports that his pain has been tolerable recently, HEP has been going fine. Compliance with HEP: Yes Objective Objective measurements not taken today. Treatment Therapeutic Exercise # of Activities: 7 Therapeutic Exercise Activity 1: Bridges Activity 1 Comment: 3 x 10 Therapeutic Exercise Activity 2: TA marches Activity 2 Comment: 3 x 10 Therapeutic Exercise Activity 3: S/L clamshells Activity 3 Comment: 3 x 10 B, Blue TB Therapeutic Exercise Activity 4: PB rollouts Fwd/ lat B Activity 4 Comment: x 10 ea Therapeutic Exercise Activity 5: MARIELLE at counter Activity 5 Comment: x 15 Home Exercise Program: Progressed home exercise program Assessment Skilled physical therapy interventions utilized to improve patient s impairments and work towards established goals. Patient response to treatment: Continued hip and core strengthening exercises on this date. Updated HEP with S/L clamshells using blue TB and added live Grant'd good tolerance and understanding with performance. Ohlman like PB rollouts and MARIELLE were good stretches so added these to home program also. Pt reports feeling a bit loosened up post session, feels that he will notice a difference later on today. Patient will benefit from continued physical therapy to reduce symptoms and reach PT goals. The rationale for today s treatment was explained to the patient. Verbal cues were provided for correct form with all exercises. Advised patient to continue with Home Exercise Program (HEP). Goals General/Ortho Patient will be able to walk 2 miles without pain to improve community ambulation. (Progressing) Start: 08/14/24 Expected End: 10/15/24 Patient will decrease Oswestry Disability Index from a 15 to a 5 to show a decrease in pain with ADLs. (Progressing) Start: 08/14/24 Expected End: 10/15/24 Patient will increase R hip flexion from a 72 and L hip flexion from a 100 to 120 for improve gait. (Progressing) Start: 08/14/24 Expected End: 10/15/24 Patient will increase hip strength to a 5/5 to improve ability to complete functional tasks. (Progressing) Start: 08/14/24 Expected End: 10/15/24 Plan Plan for next session: Progress hip and core stability and flexibility as tolerated Time Entry Total Treatment Time Start Time: 835 Stop Time: 858 Time Calculation (min): 23 min PT Therapeutic Procedures Time Entry Therapeutic Exercise Time Entry: 23 Almas Rascon PTA Cosigned by West Miller PT at 08/28/2024 10:56 AM EDT documented in this encounter [facility] 08-26-2024 Instructions Carlos Hernandez PA-C - 08/26/2024 3:06 PM EDT Images from the original note were not included. documented in this encounter [facility] 08-26-2024 Note HNO ID: [id number] Author: CARLOS HERNANDEZ PA-C Service: ? Author Type: Physician House Worker General Type: Progress Notes Filed: 08/26/2024 17:34 Note Text: CONSULT ORTHOPAEDIC: HIP PRIMARY CARE PHYSICIAN: Danial Dempsey MD REFERRING PROVIDER: Carlos Hernandez [address] [place] [id number] ASSESSMENT AND PLAN Impression: Bilateral Hip Severe Degenerative Osteoarthritis, Primary Diagnoses: (M16.11) Primary osteoarthritis of right hip (primary encounter diagnosis) (M16.12) Primary osteoarthritis of left hip - Discussed tx options for his bilateral hip OA including conservative tx, PT, CSI, and EDUARDO. 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 He is interested in learning more about hip resurfacing and if he would be a candidate. If not, he would prefer an anterior EDUARDO. - Provided contact information for by Dr. Hollis and Dr. Pratt and recommended making an appointment to discuss hip resurfacing further. - He is aware that he can reach out at anytime if he would like assistance with scheduling with a surgeon who does anterior THAs. - Continue rest, ice, OTC pain medication, and activity modification - Continue PT - Will continue to monitor patient for Primary osteoarthritis of right hip (primary encounter diagnosis) Primary osteoarthritis of left hip, patient to schedule visit as per follow up discussed. The patient has been ordered: Office Visit on 08/26/24 ticagrelor (BRILINTA) 90 mg tablet metoprolol succinate ER (TOPROL XL) 25 mg 24 hr tablet aspirin, enteric coated (ECOTRIN LOW STRENGTH) 81 mg EC tablet Risk Factors for Total Knee Arthroplasty (TKA) Major Risk Factors Obesity Moderate Risk High: BMI > 40 Moderate: BMI 30-40 Normal: BMI < 30 Diabetes normal High: A1C > 8 Moderate: A1C 7-8 Normal: A1C < 7 Hx of DVT / PE normal High: dx of DVT / PE Normal: no dx of DVT / PE Smoking normal High: Current smoker Normal: Non smoker Narcotics Use normal High:NarxCare >=300 Moderate: 100-299 Normal: 0-99 Depression Unknown Risk High: PHQ-9 >14 Moderate: PHQ-9 5-14 Normal: PHQ-9 < 5 Area Deprivation Index (CHRISTOS) normal High: CHRISTOS Score > 75 Moderate: CHRISTOS 50-75 Normal: CHRISTOS < 50 Obesity: weight management recommended BMI Readings from Last 3 Encounters: 08/26/24 : 35.73 kg/m? 05/13/21 : 35.28 kg/m? 12/27/20 : 34.97 kg/m? Area Deprivation Index (CHRISTOS) 08/26/2024 CHRISTOS Score National Score 40 Patient Health Questionnaire (PHQ-9) No data to display (0-4) minimal depression, (5-9) mild depression, (10-14) moderate depression, (15-19) moderately severe depression, (20-27) severe depression Bone Density Risk Screen Abdifatah Macario is at risk for bone loss and has not had a bone densitometry scan in the last 2 years (date of last scan: 07/20/2015). Recommend a bone densitometry scan and if indicated on the bone density results, a consult to a bone health specialist (Rheumatology, Endocrinology, or Women's Health) for bone assessment. Risk Factors: Use of Furosemide Use of Proton Pump Inhibitors Prednisone or use of systemic steroids Additional Risk Factors Anemia Hemoglobin (g/dL) Date Value 12/28/2020 10.7 12/20/2020 13.4 Past Orthopaedic Surgery: Abdifatah had knee surgery on 12/27/2020 with Celina Garcia. Malnutrition: No Malnutrition Screening Tool (MST) score on file- please complete the MST screening tool (click here to open) and refresh the note. 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 Breast Cancer in Male (Hcc) Essential Hypertension Hyperlipidemia Patent Foramen Ovale (Hcc) Class 2 Obesity Due to Excess Calories With Body Mass Index (Bmi) of 35.0 to 35.9 in Adult Status Post Total Right Knee Replacement Primary Osteoarthritis of Left Knee Heart Murmur Bph (Benign Prostatic Hyperplasia) Anemia Bilateral Leg Edema Prediabetes Status Post Total Knee Replacement, Left SUBJECTIVE CHIEF COMPLAINT: Hip Pain HPI: Abdifatah Macario is a 73 year old patient with the presenting complaint of Consult of the Right Hip (Right hip pain started 2 years ago - now pain is getting worse and radiates to buttocks and groin . Left hip pain started 2 to 4 months ago with radiation down lat. thigh. ). 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 The problem began limiting activities 1-3 years ago. FALL RISK: Abdifatah is not currently at risk for falls. PROMIS Physical Function Score No data to display FUNCTIONAL STATUS: Walk indoors, such as around the house (1.75 METs) Do light work around the house, such as dusting or washing dishes (2.70 METs) Take care of self, that is eating, dressing, bathing, using the toilet (2.75 METs) (more content not included)... [facility] 08-26-2024 History of Present illness Narrative Images from the original note were not included. CONSULT ORTHOPAEDIC: HIP PRIMARY CARE PHYSICIAN: Danial Dempsey MD REFERRING PROVIDER: Carlos Hernandez [address] [place] [id number] ASSESSMENT & PLAN Impression: Bilateral Hip Severe Degenerative Osteoarthritis, Primary Diagnoses: (M16.11) Primary osteoarthritis of right hip (primary encounter diagnosis) (M16.12) Primary osteoarthritis of left hip - Discussed tx options for his bilateral hip OA including conservative tx, PT, CSI, and EDUARDO. 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 He is interested in learning more about hip resurfacing and if he would be a candidate. If not, he would prefer an anterior EDUARDO. - Provided contact information for by Dr. Hollis and Dr. Pratt and recommended making an appointment to discuss hip resurfacing further. - He is aware that he can reach out at anytime if he would like assistance with scheduling with a surgeon who does anterior THAs. - Continue rest, ice, OTC pain medication, and activity modification - Continue PT - Will continue to monitor patient for Primary osteoarthritis of right hip (primary encounter diagnosis) Primary osteoarthritis of left hip, patient to schedule visit as per follow up discussed. The patient has been ordered: Office Visit on 08/26/24 ticagrelor (BRILINTA) 90 mg tablet metoprolol succinate ER (TOPROL XL) 25 mg 24 hr tablet aspirin, enteric coated (ECOTRIN LOW STRENGTH) 81 mg EC tablet Risk Factors for Total Knee Arthroplasty (TKA) Major Risk Factors Obesity Moderate Risk High: BMI > 40 Moderate: BMI 30-40 Normal: BMI < 30 Diabetes normal High: A1C > 8 Moderate: A1C 7-8 Normal: A1C < 7 Hx of DVT / PE normal High: dx of DVT / PE Normal: no dx of DVT / PE Smoking normal High: Current smoker Normal: Non smoker Narcotics Use normal High:NarxCare >=300 Moderate: 100-299 Normal: 0-99 Depression Unknown Risk High: PHQ-9 >14 Moderate: PHQ-9 5-14 Normal: PHQ-9 < 5 Area Deprivation Index (CHRISTOS) normal High: CHRISTOS Score > 75 Moderate: CHRISTOS 50-75 Normal: CHRISTOS < 50 Obesity: weight management recommended BMI Readings from Last 3 Encounters: 08/26/24 : 35.73 kg/m 05/13/21 : 35.28 kg/m 12/27/20 : 34.97 kg/m Area Deprivation Index (CHRISTOS) 08/26/2024 CHRISTOS Score National Score 40 Patient Health Questionnaire (PHQ-9) No data to display (0-4) minimal depression, (5-9) mild depression, (10-14) moderate depression, (15-19) moderately severe depression, (20-27) severe depression Bone Density Risk Screen Abdifatah Macario is at risk for bone loss and has not had a bone densitometry scan in the last 2 years (date of last scan: 07/20/2015). Recommend a bone densitometry scan and if indicated on the bone density results, a consult to a bone health specialist (Rheumatology, Endocrinology, or Women's Health) for bone assessment. Risk Factors: Use of Furosemide Use of Proton Pump Inhibitors Prednisone or use of systemic steroids Additional Risk Factors Anemia Hemoglobin (g/dL) Date Value 12/28/2020 10.7 12/20/2020 13.4 Past Orthopaedic Surgery: Abdifatah had knee surgery on 12/27/2020 with Celina Garcia. Malnutrition: No Malnutrition Screening Tool (MST) score on file- please complete the MST screening tool (click here to open) and refresh the note. 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 Breast Cancer in Male (Hcc) Essential Hypertension Hyperlipidemia Patent Foramen Ovale (Hcc) Class 2 Obesity Due to Excess Calories With Body Mass Index (Bmi) of 35.0 to 35.9 in Adult Status Post Total Right Knee Replacement Primary Osteoarthritis of Left Knee Heart Murmur Bph (Benign Prostatic Hyperplasia) Anemia Bilateral Leg Edema Prediabetes Status Post Total Knee Replacement, Left SUBJECTIVE CHIEF COMPLAINT: Hip Pain HPI: Abdifatah Macario is a 73 year old patient with the presenting complaint of Consult of the Right Hip (Right hip pain started 2 years ago - now pain is getting worse and radiates to buttocks and groin . Left hip pain started 2 to 4 months ago with radiation down lat. thigh. ). 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 The problem began limiting activities 1-3 years ago. FALL RISK: Abdifatah is not currently at risk for falls. PROMIS Physical Function Score No data to display FUNCTIONAL STATUS: Walk indoors, such as around the house (1.75 METs) Do light work around the house, such as dusting or washing dishes (2.70 METs) Take care of self, that is eating, dressing, bathing, using the toilet (2.75 METs) Walk a block or two on level ground (2.75 METs) PREVIOUS TREATMENTS: Past anti-inflammatory medications (not necessarily for this reason for visit): dexamethasone sodium phosphate, enalapril maleate, ketorolac tromethamine, meloxicam, methylprednisolone acetate Medical: OTC NSAIDS for 3 Months or Greater (Ibuprofen and Tylenol / acetaminophen) Physical Therapy: Activities Modified and PT Three Months or Greater 1-2 times per week REVIEW OF SYSTEMS: PAIN ASSESSMENT: See HPI. MUSCULOSKELETAL: See HPI. 12/27/2020 Malnutrition Screening Tool (MST) Lost Weight Recently Without Trying? If Yes, Amount of Weight Loss(lbs) 0:No Eating Poorly Because of a Decreased Appetite 0:No Weight Loss Score (Calculated) 0 Appetite Score (Calculated) 0 Total MST Score (Calculated) 0 PAST MEDICAL HISTORY Diagnosis Date Anemia Arthritis Cheung's esophagus BPH (benign prostatic hyperplasia) Breast cancer (HCC) Colon polyps Diverticulosis GERD (gastroesophageal reflux disease) Hiatal hernia HTN (hypertension) Hypercholesteremia Mixed hyperlipidemia Skin cancer PAST SURGICAL HISTORY Procedure Laterality Date ADENOIDECTOMY HX ANKLE SURGERY HX Left 07/1999 removal of hardware COLONOSCOPY GEN ANES 09/18/2012 Diverticulosis COLONOSCOPY GEN ANES 11/10/2020 EGD 12/29/2015 Cheung's Esophagus, Hiatal Hernia, Mild chronic gastritis, mildly [...] Cancer Sister Colon Cancer No Family History Social History Tobacco Use Smoking status: Never Smokeless tobacco: Never Vaping Use Vaping status: Never Used Substance Use Topics Alcohol use: Yes Comment: Not weekly Drug use: Never ALLERGIES: Patient has no known allergies. MEDICATIONS: ticagrelor (BRILINTA) 90 mg tablet Take by mouth. metoprolol succinate ER (TOPROL XL) 25 mg 24 hr tablet Take 1 tablet by mouth once daily. aspirin, enteric coated (ECOTRIN LOW STRENGTH) 81 mg EC tablet Take 1 tablet by mouth once daily. amoxicillin (AMOXIL) 500 mg capsule TAKE FOUR CAPSULES BY MOUTH one hour prior TO dental procedure amoxicillin (AMOXIL) 500 mg capsule Take 4 capsules by mouth 1 hour prior to dental cleaning ondansetron (ZOFRAN) 4 mg tablet Take 1 tablet by mouth every 8 hours as needed for nausea/vomiting (for nausea.). Multivitamin capsule Take 1 capsule by mouth once daily. cyanocobalamin, vitamin B-12, (VITAMIN B-12 ORAL) Take by mouth. tamsulosin (FLOMAX) 0.4 mg Take 0.4 mg by mouth once daily. pantoprazole DR (PROTONIX) 40 mg tablet Take 40 mg by mouth once daily. furosemide (LASIX) 20 mg tablet Take 20 mg by mouth twice daily. rosuvastatin (CRESTOR) 20 mg tablet Take 20 mg by mouth daily at bedtime. potassium chloride SR (MICRO-K) 10 mEq CR capsule Take 10 mEq by mouth twice daily. Ipratropium [place] (ATROVENT) 0.03 % nasal spray Use 2 Sprays in the nose as needed. OBJECTIVE PHYSICAL EXAM Ht 172.7 cm (5' 8) Wt 106.6 kg (235 lb) BMI 35.73 kg/m All other systems deferred. GENERAL: Appears healthy, well-nourished, no deformities. HABITUS: Normal GAIT: Antalgic HIP EXAM: Right: ROM: Extension: Normal Flexion: 100 degrees Internal Rotation: 0 degrees External Rotation: 20 degrees Abduction: 40 degrees Adduction: 30 degrees Strength: Abduction 5/5 and Flexion 5/5 Palpation: No tenderness Log roll: Painful. Straight leg raise: Negative Neurovascular Status: Sensation Intact and Moves foot and ankle up & down Left: ROM: Extension: Normal Flexion: 110 degrees Internal Rotation: 10 degrees External Rotation: 25 degrees Abduction: 40 degrees Adduction: 30 degrees Strength: Abduction 5/5 and Flexion 5/5 Palpation: No tenderness Log roll: Painful. Straight leg raise: Negative Neurovascular Status: Sensation Intact and Moves foot and ankle up & down DATA: Most recent hip imaging was completed on 08/26/2024 (XR HIP 2V AP/LAT RIGHT (AK,FL,ME,UN)) . Diagnostic tests reviewed for today's visit: Right hip X-Ray: Severe degenerative changes Left hip X-Ray: moderate to severe degenerative changes SIGNATURE: Carlos Hernandez PA-C PATIENT NAME: Abdifatah Macario DATE: August 26, 2024 TIME: 2:55 PM documented in this encounter [facility] 08-26-2024 History of Present illness Narrative Images from the original note were not included. [facility] [place] [facility] [place] [address] [place] [address] Dept: [phone] Dept PHYSICAL THERAPY TREATMENT Patient Name: Ilir Macario : 1950 Date of Service: 08/26/2024 Referring Provider: Danial Dempsey MD Visit #: 4 Diagnosis: Lumbar back pain with radiculopathy affecting left lower extremity Mechanism of injury: insidious onset and worsening of low back pain Patient Preferences: Ilir Precautions/Red Flags: Yes HTN Subjective Pt reports that his hip is tight, has been having some trouble getting into piriformis stretching position. Compliance with HEP: Yes Objective Objective measurements not taken today. Treatment Therapeutic Exercise # of Activities: 7 Therapeutic Exercise Activity 1: Fire hydrants/ donkey kicks Activity 1 Comment: 3 x 10 B, GTB Therapeutic Exercise Activity 2: Seated hip IR w/ ball squeeze Activity 2 Comment: 3 x 10, GTB Therapeutic Exercise Activity 3: S/L clamshells Activity 3 Comment: 3 x 10 B, GTB Therapeutic Exercise Activity 5: Figure 4 and piriformis stretching H/L Activity 5 Comment: x 30 B Home Exercise Program: Progressed home exercise program Assessment Skilled physical therapy interventions utilized to improve patient s impairments and work towards established goals. Patient response to treatment: Continued focus on hip strengthening exercises on this date. Added in fire hydrants/ donkey kicks and s/l clamshells, good tolerance to each but stated these were challenging. Ended session with piriformis stretching, again stated this was really tight. Pt reports feeling some hip fatigue post session, no real increase in discomfort. Patient will benefit from continued physical therapy to reduce painful symptoms and benefit QOL. The rationale for today s treatment was explained to the patient. Verbal cues were provided for correct form with all exercises. Advised patient to continue with Home Exercise Program (HEP). Goals General/Ortho Patient will be able to walk 2 miles without pain to improve community ambulation. (Progressing) Start: 08/14/24 Expected End: 10/15/24 Patient will decrease Oswestry Disability Index from a 15 to a 5 to show a decrease in pain with ADLs. (Progressing) Start: 08/14/24 Expected End: 10/15/24 Patient will increase R hip flexion from a 72 and L hip flexion from a 100 to 120 for improve gait. (Progressing) Start: 08/14/24 Expected End: 10/15/24 Patient will increase hip strength to a 5/5 to improve ability to complete functional tasks. (Progressing) Start: 08/14/24 Expected End: 10/15/24 Plan Plan for next session: Progress hip and core strength as able. Add core exs to HEP Time Entry Total Treatment Time Start Time: 847 Stop Time: 913 Time Calculation (min): 26 min PT Therapeutic Procedures Time Entry Therapeutic Exercise Time Entry: 26 Almas Rascon PTA Cosigned by Estiven Aldrich PT at 08/26/2024 9:35 AM EDT documented in this encounter [facility] 08-21-2024 History of Present illness Narrative Images from the original note were not included. [facility] AT [address] [place] [address] Dept: [phone] Dept PHYSICAL THERAPY TREATMENT Patient Name: Ilir Macario : 1950 Date of Service: 08/21/2024 Referring Provider: Danial Dempsey MD Visit #: 3 Diagnosis: Lumbar back pain with radiculopathy affecting left lower extremity Mechanism of injury: insidious onset and worsening of low back pain Patient Preferences: Ilir [place]/Red Flags: Yes HTN Subjective Pt reports that his hip feels a little better since starting PT. Compliance with HEP: Yes Objective Objective measurements not taken today. Treatment Therapeutic Exercise # of Activities: 7 Therapeutic Exercise Activity 1: 3 way hip Activity 1 Comment: 3 x 10 OTB Therapeutic Exercise Activity 2: Seated hip IR w/ ball squeeze Activity 2 Comment: 2 x 10, OTB Therapeutic Exercise Activity 3: Reverse clamshells Activity 3 Comment: 2 x 10 B Therapeutic Exercise Activity 5: Figure 4 and piriformis stretching H/L Activity 5 Comment: x 30 B Home Exercise Program: Progressed home exercise program Assessment Skilled physical therapy interventions utilized to improve patient s impairments and work towards established goals. Patient response to treatment: Continued with hip strengthening on this date. Added 3 way hips, hip IR exercises and piriformis stretches to HEP as pt demo's good tolerance and understanding. Ended session with piriformis stretching, reports feeling some increase in hip soreness that is tolerable post session. Patient will benefit from continued physical therapy to improve hip stability/ flexibility and reduce painful symptoms. The rationale for today s treatment was explained to the patient. Verbal cues were provided for correct form with all exercises. Advised patient to continue with Home Exercise Program (HEP). Goals General/Ortho Patient will be able to walk 2 miles without pain to improve community ambulation. (Progressing) Start: 08/14/24 Expected End: 10/15/24 Patient will decrease Oswestry Disability Index from a 15 to a 5 to show a decrease in pain with ADLs. (Progressing) Start: 08/14/24 Expected End: 10/15/24 Patient will increase R hip flexion from a 72 and L hip flexion from a 100 to 120 for improve gait. (Progressing) Start: 08/14/24 Expected End: 10/15/24 Patient will increase hip strength to a 5/5 to improve ability to complete functional tasks. (Progressing) Start: 08/14/24 Expected End: 10/15/24 Plan Plan for next session: Progress hip and core stability as tolerated Time Entry Total Treatment Time Start Time: 832 Stop Time: 858 Time Calculation (min): 26 min PT Therapeutic Procedures Time Entry Therapeutic Exercise Time Entry: Almas Rascon PTA Cosigned by West Miller PT at 08/21/2024 9:45 AM EDT documented in this encounter [facility] 08-19-2024 History of Present illness Narrative Images from the original note were not included. [facility] [place] [facility] [place] [address] [place] [address] Dept: [phone] Dept PHYSICAL THERAPY TREATMENT Patient Name: Ilir Macario : 1950 Date of Service: 08/19/2024 Referring Provider: Danial Dempsey MD Visit #: 2 Diagnosis: Lumbar back pain with radiculopathy affecting left lower extremity Mechanism of injury: insidious onset and worsening of low back pain Patient Preferences: Ilir Precautions/Red Flags: Yes HTN Subjective Ilir says he had a busy weekend and he didn't get much exercises in. Says he is still getting through. Compliance with HEP: not yet Objective Objective measurements not taken today. Treatment Therapeutic Exercise # of Activities: 7 Therapeutic Exercise Activity 1: Glute Bridge Activity 1 Comment: 3x10 Therapeutic Exercise Activity 2: hook lying abduction Activity 2 Comment: 3x10, orange band Therapeutic Exercise Activity 3: PPT Activity 3 Comment: 2 x10, 3 hold Therapeutic Exercise Activity 4: SLR Activity 4 Comment: 3x10 Therapeutic Exercise Activity 5: supine LTR Activity 5 Comment: x10 Therapeutic Exercise Activity 6: supine marching Activity 6 Comment: x20 B orange Therapeutic Exercise Activity 7: prone donkey kicks Activity 7 Comment: 2x10 B Home Exercise Program: start current Assessment Skilled physical therapy interventions utilized to improve patient s impairments and work towards established goals. Gentle progressions of exercises and review of HEP today Patient response to treatment: able to complete all exercises, reported feeling a slight workout post session Patient will benefit from continued physical therapy to reduce pain, improve strength, increase range of motion, and progress to higher levels of functioning The rationale for today s treatment was explained to the patient. Verbal cues were provided for correct form with all exercises. Advised patient to continue with Home Exercise Program (HEP). Goals General/Ortho Patient will be able to walk 2 miles without pain to improve community ambulation. (Progressing) Start: 08/14/24 Expected End: 10/15/24 Patient will decrease Oswestry Disability Index from a 15 to a 5 to show a decrease in pain with ADLs. (Not Addressed) Start: 08/14/24 Expected End: 10/15/24 Patient will increase R hip flexion from a 72 and L hip flexion from a 100 to 120 for improve gait. (Progressing) Start: 08/14/24 Expected End: 10/15/24 Patient will increase hip strength to a 5/5 to improve ability to complete functional tasks. (Progressing) Start: 08/14/24 Expected End: 10/15/24 Plan Plan for next session: core strength progressions, clamshells, sidestepping Time Entry Total Treatment Time Start Time: 1400 Stop Time: 1428 Time Calculation (min): 28 min PT Therapeutic Procedures Time Entry Therapeutic Exercise Time Entry: 28 West Miller PT documented in this encounter [facility] 08-14-2024 History of Present illness Narrative Images from the original note were not included. 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 PSHX: Ilir has a past surgical history that includes Mastectomy (Right). Have you experienced any anxiety or depression?: No Have you experienced thoughts of self-harm or suicidal thoughts?: No Social Drivers of Health Reviewed: Yes Physician follow-up appointment?: Yes Subjective Chief Complaint: Ilir says that over time he has developed low back pain. Says it is not too bad early in the morning and as the day goes on it gets worse and worse. Says it has been going on for a while and doesn't really remember when it started. Says he deals with it when. Says the pain is mostly present across the back and goes down the left leg. Says when standing the pain will go down the leg. Having trouble with really any standing activities. Says sitting usually is comfortable and doesn't bother him. He says he can sleep just fine and laying down doesn't bother it too much. Describes the pain as a deep aching pain in the back, pain in the hip is anterior and sometimes runs down. X rays showed significant arthritis in his hip. Pain: Current: 0.5/10 Best: 0/10 Worst: 8-9/10 Symptoms Relieved by: resting Prior Level of Function: independent with some pain and difficulty Current Level of Function: independent with worsening pain and difficulty Patient s Stated Goal: to be able to walk more, cover more distance Objective BACK Oswestry Disability Index (X/50): 15 Posture/Observation: rounded shoulders and forward head Gait: antalgic Date Recorded: 08/14/2024 Trunk AROM Percentage Comments Flexion (flex) 100 pain Extension (ext) 25 pain Right side bending (SBR) 50 pain Left side bending (SBL) 50 Right rotation (rotR) 100 Slight pain Left rotation (rotL) 100 Slight pain Myotomes/LE Strength Right X/5 Left X/5 Comments Hip Flexion (L2-L3) 4 4+ Hip Abduction 5 4+ Hip Extension 4- 4+ Hip IR 5 5 Hip ER 5 5 Knee Extension (L3-L4) 5 5 Knee Flexion (S2) 5 4+ Ankle DF (L5) 5 5 Ankle PF (S1) 5 5 Great Toe Ext (L5) 5 5 Palpation: muscles were tender but no reproduction of symptoms Flexibility: reduced hamstring flexibility (B) mild HIP Knee & Ankle AROM: WFL Date Recorded: 08/14/2024 Comments Lower Extremity ROM Right Left AROM AROM Hip Flexion 72 100 Pain on R Functional Squat: used UE on knee for support while ascending and descending Single Leg Stance (SLS) Balance R= 6 seconds, L= 25 seconds. 5 time [id number] (seconds): 19.6 - Use of upper extremities?: Yes - Chair Height (standard chair 16-18 inches): 17 inches Assessment Ilir is a 73 y.o. patient with chief complaint of low back pain and hip pain, who presents with signs and symptoms consistent with referring diagnosis. He has decreased hip strength, decreased hip and back ROM, and pain with movements. These deficits prevent Ilir from completing functional tasks without pain. The patient would benefit from skilled physical therapy to address decreased strength, decreased range of motion, impaired balance, decreased mobility, and pain. Evaluation complexity is low secondary to: patient has 1-2 personal factors and/or comorbidities that will affect plan of care, therapy will be addressing 1-2 elements, and clinical presentation is stable. Body Systems Affected: musculoskeletal and neuromuscular Rehab Potential: Good Learning Preferences: demonstration, explanation, and printed materials Barriers to Rehab: none Goals General/Ortho Patient will be able to walk 2 miles without pain to improve community ambulation. (Initiated) Start: 08/14/24 Expected End: 10/15/24 Patient will decrease Oswestry Disability Index from a 15 to a 5 to show a decrease in pain with ADLs. (Initiated) Start: 08/14/24 Expected End: 10/15/24 Patient will increase R hip flexion from a 72 and L hip flexion from a 100 to 120 for improve gait. (Initiated) Start: 08/14/24 Expected End: 10/15/24 Patient will increase hip strength to a 5/5 to improve ability to complete functional tasks. (Initiated) Start: 08/14/24 Expected End: 10/15/24 Plan Frequency and Duration: 2/wk for 4 weeks Therapeutic Contents: aquatics/pool, client education, group therapy, home exercise program, manual therapy techniques, neuromuscular re-education, therapeutic activities, therapeutic exercise, trigger point dry needle, and modalities as needed Plan for next session: assess HEP, add prone ER/IR Risks and benefits were discussed with the patient and/or family, and the patient and/or family participated with the plan of care and agrees. Treatment Therapeutic Exercise # of Activities: 5 Therapeutic Exercise Activity 1: Glute Bridge Activity 1 Comment: x10 Therapeutic Exercise Activity 2: hook lying abduction Activity 2 Comment: x10, orange band Therapeutic Exercise Activity 3: PPT Activity 3 Comment: x10, 3 hold Therapeutic Exercise Activity 4: SLR Activity 4 Comment: x10 Therapeutic Exercise Activity 5: supine LTR Activity 5 Comment: x10 Patient Education: muscular support and force distribution Home Exercise Program: Created Time Entry Total Treatment Time Start Time: 1119 Stop Time: 1154 Time Calculation (min): 35 min PT Evaluation Time Entry PT Evaluation (Low) Time Entry: 23 PT Therapeutic Procedures Time Entry Therapeutic Exercise Time Entry: 12 All actions performed this date by student physical therapist under the direct support and supervision of licensed physical therapist. Sujey Mayer Cosigned by West Miller PT at 08/14/2024 8:32 PM EDT documented in this encounter [facility] 08-08-2024 Telephone encounter Note We are unable to reach your patient to schedule their therapy. We have made 3 attempts to schedule patient, 1st attempt: MyChart Message and/or an Email sent the date after Referral was received. 2nd attempt: Text message sent 3 days from date Referral was received. 3rd attempt: Telephone attempt 6 days from date Referral was received. [facility] 08-08-2024 Miscellaneous Notes We are unable to reach your patient to schedule their therapy. We have made 3 attempts to schedule patient, 1st attempt: MyChart Message and/or an Email sent the date after Referral was received. 2nd attempt: Text message sent 3 days from date Referral was received. 3rd attempt: Telephone attempt 6 days from date Referral was received. documented in this encounter [facility] 07-11-2024 Evaluation + Plan note Associated Problem(s): Capillary leak syndrome Unclear if worse overall or just due to alteration of med routine or worsening kidney fct. Will get updated BMP. [facility] 07-11-2024 Miscellaneous Notes Associated Problem(s): Capillary leak syndrome Unclear if worse overall or just due to alteration of med routine or worsening kidney fct. Will get updated BMP. Associated Problem(s): Lumbar back pain with radiculopathy affecting left lower extremity Recommend now done with rehab to get started with PT. Due to chronicity of back pain with now a sort of subacute exac, Hx of breast cancer, get imaging with X ray Also have PT address OA of right hip Associated Problem(s): Hyperlipidemia Recommend he check with cardio regarding LDL goal as may rec for below 50. Currenlty at usual goal of under 70 for pts with CAD. Continue statin. Associated Problem(s): History of breast cancer in male Normal f/up imaging. In remission Associated Problem(s): Obesity, morbid (HCC) Continue diet and exercise. Discussed possible trial of metformin as might help him to lose wt and is indicated for prediabetes/diabetes prevention. Does nto want to do at this time Associated Problem(s): 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 Stable. Protonix, pepcid Associated Problem(s): Presence of stent in coronary artery in patient with coronary artery disease Stable. Brilinta and asa as above. Anticipate lifelong single antiplatelet agent therapy after completion of brilinta course Associated Problem(s): Essential hypertension Stable . 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 Continue brilinta for one year total, till November 2024 ASA, crestopr for secondary prevention Metoprolol [place] 3 fatty acids per pt choice Continue home changes as per cardiac rehab, just completed documented in this encounter [facility] 07-11-2024 Evaluation + Plan note Associated Problem(s): Lumbar back pain with radiculopathy affecting left lower extremity Recommend now done with rehab to get started with PT. Due to chronicity of back pain with now a sort of subacute exac, Hx of breast cancer, get imaging with X ray Also have PT address OA of right hip [facility] 07-11-2024 Evaluation + Plan note Associated Problem(s): Hyperlipidemia Recommend he check with cardio regarding LDL goal as may rec for below 50. Currenlty at usual goal of under 70 for pts with CAD. Continue statin. [facility] 07-11-2024 Evaluation + Plan note Associated Problem(s): History of breast cancer in male Normal f/up imaging. In remission [facility] 07-11-2024 Evaluation + Plan note Associated Problem(s): Obesity, morbid (HCC) Continue diet and exercise. Discussed possible trial of metformin as might help him to lose wt and is indicated for prediabetes/diabetes prevention. Does nto want to do at this time [facility] 07-11-2024 Evaluation + Plan note Associated Problem(s): 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 Stable. Protonix, pepcid [facility] 07-11-2024 Evaluation + Plan note Associated Problem(s): Presence of stent in coronary artery in patient with coronary artery disease Stable. Brilinta and asa as above. Anticipate lifelong single antiplatelet agent therapy after completion of brilinta course [facility] 07-11-2024 Evaluation + Plan note Associated Problem(s): Essential hypertension Stable . 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 Continue brilinta for one year total, till November 2024 ASA, crestopr for secondary prevention Metoprolol [place] 3 fatty acids per pt choice Continue home changes as per cardiac rehab, just completed [facility] 07-11-2024 History of Present illness Narrative Pt asked if they have been to specialist,been in ER /hospitalized or had testing since last visit. Yes Imaging Patient was able to ambulate safely to the examination room. Provider was not notified of possible fall risk Images from the original note were not included. 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 Mild diffuse LAD, distal disease. Mod luminal disease up to 50% prox circ. [place] [facility] 11/28/2023. See in media Current Assessment & Plan Stable. Continue brilinta for one year total, till November 2024 ASA, crestopr for secondary prevention Metoprolol [place] 3 fatty acids per pt choice Continue home changes as per cardiac rehab, just completed Essential hypertension Current Assessment & Plan Stable . Meds as above Relevant Orders Basic metabolic panel Endocrine/Metabolic Obesity, morbid (HCC) Current Assessment & Plan Continue diet and exercise. Discussed possible trial of metformin as might help him to lose wt and is indicated for prediabetes/diabetes prevention. Does nto want to do at this time Other History of breast cancer in male Overview Stage IIA Current Assessment & Plan Normal f/up imaging. In remission Lumbar back pain with radiculopathy affecting left lower extremity - Primary Current Assessment & Plan Recommend now done with rehab to get started with PT. Due to chronicity of back pain with now a sort of subacute exac, Hx of breast cancer, get imaging with X ray Also have PT address OA of right hip Relevant Orders XR lumbar spine 2 or 3 views [facility] Physical Therapy [facility] Other Visit Diagnoses Primary osteoarthritis of right hip Relevant Orders [facility] Physical Therapy [facility] Follow up in about 8 weeks (around 09/05/2024) for f/u back and hip pain, edema and renal fct. Subjective HPI had repeat mammography and no lesion identified, felt to be artifact. Due to br cancer hx has annual mammos. Possibility of a research study into wt loss drugs but would have to pay for own meds. Would get $500 stipend. Will probably not do. Recent increase in hip and low back pain. Some radiation of pain into posterolateral thigh, about 1/[address] down. Chronic back pain has been increasing over last year. Waiting for hip resurface vs replacement after completes yr of brillinta for coronary stent. No CP or sob except when bending over buelly, like when tying shoes gets a little SOB. No angina, no need for NTG. Tolerating all meds. Some recent increase in edema due to skipping some doses due to schedule so not working to get it resolved. Takes lasix about 3 x / week. Wears comp stockings regularly. Review of Systems Constitutional: Negative. Respiratory: Negative for cough and wheezing. Cardiovascular: Negative for palpitations. Endocrine: Negative. Allergies[1] Social History Tobacco Use Smoking status: Never Passive exposure: Never Smokeless tobacco: Never Substance Use Topics Alcohol use: Yes Comment: occasion Objective BP 99/58 (BP Location: Left arm, Patient Position: Sitting) Pulse 62 Temp 36.4 C (97.5 F) (Oral) Ht 5' 4 (1.626 m) Wt 244 lb (111 kg) BMI 41.88 kg/m Physical Exam Vitals and nursing note reviewed. Constitutional: General: He is not in acute distress. Appearance: He is obese. Cardiovascular: Rate and Rhythm: Normal rate and regular rhythm. Heart sounds: Normal heart sounds. No murmur heard. No gallop. Pulmonary: Effort: Pulmonary effort is normal. Breath sounds: Normal breath sounds. No wheezing or rales. Abdominal: Comments: protuberant Musculoskeletal: Right lower leg: Edema present. Left lower leg: Edema present. Comments: 1+ edema mid shins with comp stockings on. Skin: General: Skin is warm and dry. Neurological: General: No focal deficit present. Mental Status: He is alert and oriented to person, place, and time. Cranial Nerves: No cranial nerve deficit. Gait: Gait abnormal. Comments: Antalgic gait Psychiatric: Mood and Affect: Mood normal. Thought Content: Thought content normal. Data Reviewed and Summarized Labs: Lab Results Component Value Date WBC 5.8 03/03/2023 HGB 14.0 03/03/2023 HCT 41.7 03/03/2023 PLT 276 03/03/2023 CHOL 174 12/28/2021 TRIG 195 (H) 12/28/2021 HDL 50 12/28/2021 ALT 12 03/03/2023 AST 14 03/03/2023 NA 139 08/23/2021 K 4.6 08/23/2021 CL 102 08/23/2021 CREATININE 0.95 03/03/2023 BUN 13 03/03/2023 CO2 28 03/03/2023 TSH 2.57 03/03/2023 PSA 0.672 08/23/2021 No visits with results within 1 Day(s) from this visit. Latest known visit with results is: Office Visit on 05/12/2024 Component Date Value Ref Range Status CHOLESTEROL, TOTAL 05/21/2024 142 <200 mg/dL Final HDL CHOLESTEROL 05/21/2024 49 > OR = 40 mg/dL Final TRIGLYCERIDES 05/21/2024 174 (H) <150 mg/dL Final LDL-CHOLESTEROL 05/21/2024 68 mg/dL (calc) Final Comment: Reference range: <100 Desirable range <100 mg/dL for primary prevention; <70 mg/dL for patients with CHD or diabetic patients with > or = 2 CHD risk factors. LDL-C is now calculated using the Maurisio-Howard calculation, which is a validated novel method providing better accuracy than the Friedewald equation in the estimation of LDL-C. Maurisio SS et al. VANCE. 2013;310(19): 4552-7550 (http://education.iAgree.com/faq/VGV027) CHOL/HDLC RATIO 05/21/2024 2.9 <5.0 (calc) Final NON HDL CHOLESTEROL 05/21/2024 93 <130 mg/dL (calc) Final Comment: For patients with diabetes plus 1 major ASCVD risk factor, treating to a non-HDL-C goal of <100 mg/dL (LDL-C of <70 mg/dL) is considered a therapeutic option. Imaging/Testing: Danial Dempsey MD [1] No Known Allergies documented in this encounter [facility] 05-12-2024 Evaluation + Plan note Associated Problem(s): Capillary leak syndrome Exacerbated by recent events. Lasix/K+ to resolution [facility] 05-12-2024 Miscellaneous Notes Associated Problem(s): Capillary leak syndrome Exacerbated by recent events. Lasix/K+ to resolution Associated Problem(s): Obesity, morbid (HCC) See below. 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 Encouraged him to discuss dyspnea with cardio. Continue asa, metoprolol tartrate, brilinta Associated Problem(s): Prediabetes Offered bariatric referral for obesity, decrease in progression to diabetes. Phentermin/topiramate could be an option but cardio would have to sign of on. Mentioned buproprion as well. documented in this encounter [facility] 05-12-2024 Evaluation + Plan note Associated Problem(s): Obesity, morbid (HCC) See below. 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 Encouraged him to discuss dyspnea with cardio. Continue asa, metoprolol tartrate, brilinta [facility] 05-12-2024 Evaluation + Plan note Associated Problem(s): Prediabetes Offered bariatric referral for obesity, decrease in progression to diabetes. Phentermin/topiramate could be an option but cardio would have to sign of on. Mentioned buproprion as well. [facility] 05-12-2024 Note Offered bariatric re ferral for obesity, decrease in progression to diabetes. Phentermin/topiramate could be an option but cardio would have to sign of on. Mentioned buproprion as well. [facility] 05-12-2024 History of Present illness Narrative Patient was able to ambulate safely to the examination room. Provider was not notified of possible fall risk Pt asked if they have been to specialist,been in ER /hospitalized or had testing since last visit. No Images from the original note were not included. 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 Mild diffuse LAD, distal disease. Mod luminal disease up to 50% prox circ. [facility] 11/28/2023. See in media Essential hypertension Endocrine/Metabolic Obesity, morbid (HCC) Prediabetes - Primary Other Hyperlipidemia Overview Last Assessment & Plan: Assessment: Compliant with Rx. Following with cardiology/PCP. No follow-ups on file. 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 cat bite in finger, own cat. On augmentin. Spoke with a hand surgeon he knows who is taking care of it. Much improved, keeping covered. Finger still swollen, not red, pain present but decreasing.Feels cat was startled out of sleep. On augmentin 875/125 for 5 more days. No real progress with weight. Semaglutide denied as not diabetic. Plans to talk with cardio about it to see if they have any way to get in view of new dx of CAD. Increased LE edema due to travel and sitting in meetings. Will take lasix for a few days to get swelling and weight down. Dyspnea with exertion much improved since stent Some dyspnea with bending over, like tying shoes, with compression of abdomen. No orthopnea or PND. Denies Chest pain. Sees cardio end of May. Has appt for diagnostic imaging for f/up of mammogram. No palpable abnormality. Review of Systems No Known Allergies Social History Tobacco Use Smoking status: Never Passive exposure: Never Smokeless tobacco: Never Substance Use Topics Alcohol use: Yes Comment: occasion Objective BP 130/84 (BP Location: Left arm, Patient Position: Sitting) Pulse 67 Temp 36.4 C (97.5 F) (Oral) Ht 5' 4 (1.626 m) Wt 241 lb (109 kg) BMI 41.37 kg/m Physical Exam Vitals and nursing note reviewed. Constitutional: Appearance: Normal appearance. He is obese. HENT: Head: Normocephalic and atraumatic. Cardiovascular: Rate and Rhythm: Normal rate and regular rhythm. Heart sounds: Normal heart sounds. No murmur heard. No gallop. Pulmonary: Effort: Pulmonary effort is normal. Breath sounds: Normal breath sounds. No wheezing or rales. Abdominal: Comments: obese Musculoskeletal: Right lower leg: Edema present. Left lower leg: Edema present. Comments: 2+ edema bilaterally Right index finger swollen, decreased flexion at dip joint due to same. + skin disruption dorsum of distal phalanx and radial side. Longitudinal wound on dorsum, puncture wnds on radial side. Dry. No purulence. Cap refill under 2 sec. Diffuse TTP distal phalanx Skin: General: Skin is warm and dry. Capillary Refill: Capillary refill takes less than 2 seconds. Neurological: General: No focal deficit present. Mental Status: He is alert and oriented to person, place, and time. Cranial Nerves: No cranial nerve deficit. Gait: Gait normal. Psychiatric: Mood and Affect: Mood normal. Behavior: Behavior normal. Thought Content: Thought content normal. Judgment: Judgment normal. Data Reviewed and Summarized Labs: Lab Results Component Value Date WBC 5.8 03/03/2023 HGB 14.0 03/03/2023 HCT 41.7 03/03/2023 PLT 276 03/03/2023 CHOL 174 12/28/2021 TRIG 195 (H) 12/28/2021 HDL 50 12/28/2021 ALT 12 03/03/2023 AST 14 03/03/2023 NA 139 08/23/2021 K 4.6 08/23/2021 CL 102 08/23/2021 CREATININE 0.95 03/03/2023 BUN 13 03/03/2023 CO2 28 03/03/2023 TSH 2.57 03/03/2023 PSA 0.672 08/23/2021 No visits with results within 1 Day(s) from this visit. Latest known visit with results is: Office Visit on 03/07/2024 Component Date Value Ref Range Status Hemoglobin A1C 03/07/2024 6.4 (A) <=5.7 % Final Imaging/Testing: Danial Dempsey MD documented in this encounter [facility] 04-21-2024 Telephone encounter Note We have been unable to reach your patient to schedule their testing. Test Name: physical therapy 1st Attempt: rosalind 01-25-24 2nd Attempt: dav pt/ stated he would like to hold off on scheduling- provided scheduling phone #/ 04-21-24 [facility] 03-10-2025 Miscellaneous Notes We have been unable to reach your patient to schedule their testing. 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 He presented to Dr. Barcenas at [facility] with a one-month history of a palpable mass in his right breast. He had a mammogram done on January 11, 2010 that showed a 1.3 cm dense mass in the right breast at the central region behind the nipple. This was followed by an ultrasound-guided biopsy on January 26, 2010 and at that point the mass measured 1.4 cm. The pathology report was infiltrating moderately differentiated carcinoma, grade 2. He was taken to the operating room by Dr. Barcenas on February 01, 2010 for a RIGHT total mastectomy with sentinel lymph node biopsy. Two sentinel lymph nodes were identified and one contained a 0.67 mm focus of metastatic cancer. Progesterone and estrogen receptors were positive and HER-2 was negative. The patient had BRCA testing and is negative for BRCA1 and 2 despite a very positive family history of breast cancer in a sister and 2 maternal aunts. He also had ADRIA testing and that was negative as well in 2010 He was given 4 cycles of adjuvant chemotherapy with Taxotere and Cytoxan concluding the last cycle on April 29, 2010. He was then referred on to radiation therapy and was treated at [facility] with radiation therapy to the chest wall in the involved lymph node area. Tamoxifen was started 07/2010- 05/2018 History of Present Illness: ID Statement: ABDIFATAH MACARIO is a 71 year old Male Chief Complaint: Breast cancer treatment follow-up and surveillance Interval History: The patient was referred to mo for further evaluation and management of infiltrating ductal carcinoma pT1c, N0, M0 stage IIa, diagnosed on January 20, 2010. Status post 4 cycles of chemotherapy using Taxotere Cytoxan, radiation therapy and tamoxifen from July 2010 through May 2018. The patient is currently not receiving any therapy. He is asymptomatic. The patient had come for follow-up on April 18, 2024 regarding history ofinfiltrating ductal carcinoma right breast. pT1c, N0, M0 stage IIa, diagnosed on January 20, 2010. Status post 4 cycles of chemotherapy using Taxotere Cytoxan, radiation therapy and tamoxifen from July 2010 through May 2018. The patient is currently not receiving any therapy. He is asymptomatic. His energy is good. Denies issues with sleep or fatigue He denies any vision changes or headache issues, dizziness or loss of balance. 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 He denies any shortness of breath, cough, or chest pain He denies any new or unexplained bone aches or pains He denies any skin lesions or masses, oral sores lesions or infections He reports a normal appetite and normal bowel movements, and normal urination. Denies any new stomach pains, nausea, or vomiting. History of GERD and Biliary reflux. Sees GI. Limits red meats and processed sugars. exercise bike 3 times a week regularly sees PCP Review of systems: ROS 14 points performed, See HPI for exceptions System Review All other systems have been reviewed and are negative for complaint. Allergies and Intolerances: Allergies: No Known Allergies: Active Outpatient Medication Profile: * Patient Currently Takes Medications as of 10-Apr-2022 10:46 documented in Structured Notes potassium chloride 10 mEq oral capsule, extended release: Last Dose Taken: , 1 cap(s) orally 2 times a day, Start Date: 26-Feb-2017 Protonix 40 mg oral delayed release tablet: Last Dose Taken: , 1 tab(s) orally once a day furosemide 20 mg oral tablet: Last Dose Taken: , 1 tab(s) orally once a day Crestor 20 mg oral tablet: Last Dose Taken: , 1 tab(s) orally once a day tamsulosin 0.4 mg oral capsule: Last Dose Taken: , 1 cap(s) orally once a day Vitamin B12: Last Dose Taken: Vitamin C 500 mg oral capsule: Last Dose Taken: , 1 cap(s) orally once a day Tylenol 8 HR Arthritis Pain 650 mg oral tablet, extended release: Last Dose Taken: , 2 tab(s) orally every 8 hours Medical History: 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: ICD-10: K22.70, Status: Active Malignant neoplasm of central portion of right male breast: ICD-10: C50.121, Status: Active Vitamin D deficiency: ICD-10: E55.9, Status: Active Chronic venous insufficiency: ICD-10: I87.2, Status: Active Non morbid obesity due to excess calories: ICD-10: E66.09, Status: Active Other osteoarthritis involving multiple joints: ICD-10: M15.8, Status: Active Dyslipidemia: ICD-10: E78.5, Status: Active GERD (gastroesophageal reflux disease): ICD-10: K21.9, Status: Active Diverticulosis: ICD-10: K57.90, Status: Active Social History: Social Substance History: Social History denies smoking, alcohol and drug use Smoking Status never smoker Additional History 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 Denies concerns related to oral cavity/mucosa. Head/Neck: Neck supple, no apparent injury Respiratory/Thorax: Patent airways, normal breath sounds with good chest expansion, thorax symmetric. no wheezing, rales or rhonchi Cardiovascular: Regular, rate and rhythm, no murmurs, , normal S 1and S 2 normal distal perfusion Gastrointestinal: Obese , soft, non-tender, no rebound tenderness or guarding, no masses palpable, no organomegaly, Musculoskeletal: ROM intact, no joint swelling, normal strength, no spinal tenderness Extremities: normal extremities Neurological: alert and oriented x4, no apparent sensory or motor abnormalities Breast: right chest wall smooth with scar. Left tissue smooth but thick - no masses or nodules. Areolar area with mild asymmetric color Axilla clear Lymphatic: No cervical, supraclavicular, infraclavicular, or axillary lymphadenopathy Psychological: Appropriate mood and behavior Skin: Warm and dry, no lesions, no rashes, no jaundice Lab Results: Radiology Result: Results MG Breast Tomosynthesis Scr Left Patient Name: ABDIFATAH MACARIO Mammography ACCESSION EXAM DATE/TIME PROCEDURE ORDERING PROVIDER [id number] 12/08/2021 08:02 EDT MG Breast Tomosynthesis MD YOJANA, MARISSA Botello Scr Left CPT code 69102 [id number] Reason For Exam (MG Breast Tomosynthesis Scr Left) routine Report TIME SINCE LAST MAMMOGRAM: Last mammogram was performed 1 year ago. REASON FOR EXAM: screening, asymptomatic. PROCEDURE: MG BREAST TOMOSYNTHESIS SCR LEFT: DECEMBER 08, 2021 - 2D/3D Procedure 3D CC and MLO view(s) were taken of the left breast. 2D CC and MLO view(s) were taken of the left breast. Prior study comparison: December 07, 2020, left breast MG breast tomosynthesis scr left performed at [facility]. November 03, 2019, left breast MG breast tomosynthesis scr left performed at [facility]. October 28, 2018, left breast MG breast tomosynthesis scr left performed at [facility]. TISSUE DENSITY: BIRADS B - There are scattered fibroglandular densities. . FINDINGS: No suspicious masses, architectural distortions or suspiciously clustered microcalcifications are identified. There is no evidence of skin thickening or nipple retraction. There are no significant changes when compared with prior studies. No mammographic evidence of malignancy. Markings on images: BB's = Nipples; skin lesions [employer] = Palpable Line = Scar 2D digital mammography and tomosynthesis imaging were performed and reviewed with CAD. ASSESSMENT: Category 1 Negative Mammography Report RECOMMENDATION: Routine screening mammogram of the left breast in 1 year. . Report Dictated on Signed Date and Time: 12/08/2021 8:09 am Signed by: MD LARA LAUREN B Assessment and Plan: The patient was evaluated on April 18, 2024 1. Male breast exam: Stage II disease without evidence of reoccurrence and stable exam. He finished 8 years of adjuvant endocrine therapy, stopping Tamoxifen in May 2018. - There is no evidence of breast cancer recurrence based on her clinical exam today. -mammogram: 12/08/21: cat 1 -mammogram on 04/15/24 benign findings. Ordered mammogram for April 16, 2025. 2. Genetic risks: My suspicion is high, BRCA testing was negative though ? test and done some time ago. Will re-consult genetics. Family history reviewed. 3. Biliary reflux -monitored by GI specialist documented in this encounter [facility] Work Phone: 04-10-2024 Telephone encounter Note Last office visit:03/07/24 Next office visit:05/12/24 [facility] 04-10-2024 Miscellaneous Notes Last office visit:03/07/24 Next office visit:05/12/24 documented in this encounter [facility] 04-08-2024 Evaluation note Diagnosis Onset Date Resolution Abnormal screening CT of chest acute April 08, 2024 9:06am History of coronary artery stent placement November 28, 2023 acute April 08, 2024 9:06am Essential (primary) hypertension April 08, 2024 9:06am Hyperlipidemia chronic March 162024 9:06am Patent foramen ovale chronic 2024 9:06am [facility] Work Phone: 1(904) 290-310302-25-2025 Evaluation note* Diagnosis Onset Date Resolution Status Admit Date Abnormal screening CT of chest acute April 08, 025 9:06am History of coronary artery stent placement November 28, 2023 acute March 9:06am Essential (primary) hypertension chronic April 08, 025 9:06am Hyperlipidemia chronic March 162024 9:06am Patent foramen ovale chronic 2024 9:06am History of coronary artery stent placement November 28, 2023 acute June 03, 2 025 9:32am Essential (primary) hypertension chronic June 03, 2024 9:32am Hyperlipidemia chronic May 9:32am Patent foramen ovale chronic Apri l 2024 9:32am [facility] Work Phone: 1(971) 811-182202-24-2025 Telephone encounter Note* Telephone Encounter - Marisol Rae RN - 04/07/2024 9:06 AM EST Last office visit: 03/07/24 Next office visit: 05/12/24 [id number] Miscellaneous Notes* Telephone Encounter - Marisol Rae RN - 04/07/2024 9:06 AM EST Last office visit: 03/07/24 Next office visit: 05/12/24 documented in this [facility]01-31-2025 History of Present illness Narrative* Danial Dempsey MD - 03/14/2024 2:59 PM EST Spent an hour on the phone with silver [employer]. Appeal denied due to pt no meeting criteria for diabetes. Diagnosis required medication Case #[id number] documented in this [facility]01-25-2025 Evaluation + Plan note* Assessment & Plan Note - Danial Dempsey MD - 03/08/2024 2:35 PM EST Associated Problem(s): Hyperlipidemia After visit chart review chularosa magaña last in mar 07. Unable to find any from [facility] where stent placed. Repeeat at next ov [id number] Miscellaneous Notes* Assessment & Plan Note - Danial Dempsey MD - 03/08/2024 2:35 PM ESTAssociated Problem(s): Hyperlipidemia After visit chart review rosalba magaña last in mar 07. Unable to find any from [facility] where stent placed. Repeeat at next ov * Assessment & Plan Note - Danial Dempsey MD - 03/08/2024 2:34 PM EST Associated Problem(s): Capillary leak syndrome Stable. Controlled with intermittent lasix * Assessment & Plan Note - Danial Dempsey MD - 03/08/2024 2:33 PM EST Associated Problem(s): Macrocytic anemia (Resolved 03/08/2024) resolved documented in this [facility]01-25-2025 Evaluation + Plan note* Assessment & Plan Note - Danial Dempsey MD - 03/08/2024 2:34 PM EST Associated Problem(s): Capillary leak syndrome Stable. Controlled with intermittent lasix [id number] Evaluation + Plan note* Assessment & Plan Note - Danial Dempsey MD - 03/08/2024 2:33 PM ESTAssociated Problem(s): Macrocytic anemia (Resolved 03/08/2024) resolved [id number] History of Present illness Narrative* Marisol Rae RN - 03/07/2024 9:00 AM EST Pt asked if they have been to specialist,been in ER /hospitalized or had testing since last visit. No Patient was able to ambulate safely to the examination room. Provider was not notified of possible fall risk * Danial Dempsey MD - 03/07/2024 9:00 AM EST Images from the original note were not included. 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 Mild diffuse LAD, distal disease. Mod luminal disease up to 50% prox circ. [place] [facility] 11/28/2023. See in media Relevant Medications Semaglutide, 2 MG/DOSE, 8 MG/3ML solution pen-injector Endocrine/Metabolic Obesity, morbid (HCC) Relevant Medications Semaglutide, 2 MG/DOSE, 8 MG/3ML solution pen-injector Prediabetes - Primary Relevant Medications Semaglutide, 2 MG/DOSE, 8 MG/3ML solution pen-injector Other Relevant Orders AMB POC HEMOGLOBIN A1C (Completed) Hematologic RESOLVED: Macrocytic anemia Overview No b 12 or folate def. Likely related to fci effectas of chemo. Current Assessment & Plan resolved Other Visit Diagnoses CVD (cardiovascular disease) Relevant Medications Semaglutide, 2 MG/DOSE, 8 MG/3ML solution pen-injector Other Relevant Orders AMB POC HEMOGLOBIN A1C (Completed) Muscle spasms of neck Relevant Medications metaxalone (Skelaxin) 800 MG tablet Given obestiy, prediab, recent cardiac stent and unsuccessful attempts at weight loss over at leastthe last 2 yrs, feel will benefit from semaglutide to decrease progression to diabetes and improve CV outcomes in pt with BMI of 36. Pt without falls or excessive sedation from metaxolone with increased fctal ability for daily activities. Follow up in about 6 weeks (around 04/18/2024) for weight and blood sugar. Subjective HPI CVD/HTN/hyperlipidemeia: no cp. Exertional dyspnea is less since surgery and with cardiac rehab. No orhtopnea or PND reported. Edema is unchanged. Continue brillinta till December for stent . Tolerating crestor. Capillary leak syndrome: peripheral edema related to tamoxifen therapy. Controlled with lasix 2-3 times a week. Take potassium only on days he take lasix. Epidiymitis: sx's resolved with ATB's. Also had some ATB's for dental inf. Hydroceles: over time has had mild intermittent scrotal swelling, not painful. Wears scrotal support/briefs. No hx of hernia Obesity: increased activity with cardiac rehab. Many dietary changes. Struggling with weight loss and interested in a GLP-1 for weight and CV risk reduction, prevention of DM. Bile reflux gastritis/ Barretts: does immediately miss protonix if does not take. Never misses pepcid so unable to say. Prediabetes: quit pop some time ago. Occasional cookie. Review of Systems No Known Allergies Social History Tobacco Use Smoking status: Never Passive exposure: Never Smokeless tobacco: Never Substance Use Topics Alcohol use: Yes Comment: occasion Objective BP 127/78 Pulse 61 Temp 36 C (96.8 F) (Temporal) Ht 5' 8 (1.727 m) Wt 243 lb (110 kg) BMI 36.95 kg/m Physical Exam Constitutional: Appearance: Normal appearance. He is obese. Cardiovascular: Rate and Rhythm: Normal rate and regular rhythm. Pulses: Normal pulses. Heart sounds: Normal heart sounds. No murmur heard. No gallop. Pulmonary: Effort: Pulmonary effort is normal. Breath sounds: Normal breath sounds. No wheezing, rhonchi or rales. Skin: General: Skin is warm and dry. Neurological: General: No focal deficit present. Mental Status: He is alert and oriented to person, place, and time. Cranial Nerves: No cranial nerve deficit. Psychiatric: Mood and Affect: Mood normal. Thought Content: Thought content normal. Judgment: Judgment normal. Data Reviewed and Summarized Labs: Office Visit on 03/07/2024 Component Date Value Ref Range Status Hemoglobin A1C 03/07/2024 6.4 (A) <=5.7 % Final 11/09/23: lab from nephro visit EGFR 82. RBC indices normal Imaging/Testing: Danial Dempsey MD documented in this encounterSumma [id number] Telephone encounter Note* Telephone Encounter - Keyla Corbin LPN - 02/27/2024 8:58 AM EST Last office visit:01/25/24 Next office visit:03/07/24 [id number] Miscellaneous Notes* Telephone Encounter - Keyla Corbin LPN - 02/27/2024 8:58 AM EST Last office visit:01/25/24 Next office visit:03/07/24 documented in this [facility]12-18-2024 NoteCalled spoke to patient, let him know that Dr. Dempsey has put in a referral to PT for him to [facility] PT they should be contacting him about scheduling but he can always call and schedule himself. Gave the patient the phone number [phone]. He said he would give them a call.[facility]12-13-2024 Evaluation + Plan note* Assessment & Plan Note - Danial Dempsey MD - 01/25/2024 1:37 PM ESTAssociated Problem(s): Capillary leak syndrome Lasix as needed, currently every other day most of the time. [facility] [id number] Miscellaneous Notes* Assessment & Plan Note - Danial Dempsey MD - 01/25/2024 1:37 PM ESTAssociated Problem(s): Capillary leak syndrome Lasix as needed, currently every other day most of the time. * Assessment & Plan Note - Danial Dempsey MD - 01/25/2024 1:36 PM EST Associated Problem(s): Obesity, morbid (HCC) Discuss more at next ov. Consider pharmacotherapy vs bariatrics. * Assessment & Plan Note - Danial Dempsey MD - 01/25/2024 1:36 PM EST Associated Problem(s): Prediabetes Could consider pharmacotherapy especitlly in view of now with significant CAD requiring stent * Assessment & Plan Note - Danial Dempsey MD - 01/25/2024 1:35 PM EST Associated Problem(s): 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 Pepcid 20 mg, protonix 40 mg controled if follows lifestyle recs. 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 Does not tolerate DOREEN due to low BP. * Assessment & Plan Note - Danial Dempsey MD - 01/25/2024 1:32 PM EST Associated Problem(s): Presence of stent in coronary artery in patient with coronary artery disease Continue brillinta and asa per cardio documented in this [facility]12-13-2024 Evaluation + Plan note* Assessment & Plan Note - Danial Dempsey MD - 01/25/2024 1:36 PM EST Associated Problem(s): Obesity, morbid (HCC) Discuss more at next ov. Consider pharmacotherapy vs bariatrics. [facility] [id number] Evaluation + Plan note* Assessment & Plan Note - Danial Dempsey MD - 01/25/2024 1:36 PM ESTAssociated Problem(s): Prediabetes Could consider pharmacotherapy especitlly in view of now with significant CAD requiring stent [facility] [id number] Evaluation + Plan note* Assessment & Plan Note - Danial Dempsey MD - 01/25/2024 1:35 PM ESTAssociated Problem(s): 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 Pepcid 20 mg, protonix 40 mg controled if follows lifestyle recs. 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 Does not tolerate DOREEN due to low BP. [id number] Evaluation + Plan note* Assessment & Plan Note - Danial Dempsey MD - 01/25/2024 1:32 PM ESTAssociated Problem(s): Presence of stent in coronary artery in patient with coronary artery disease Continue brillinta and asa per cardio [facility] [id number] History of Present illness Narrative* Joelle Colin LPN - 01/25/2024 9:00 AM EST Pt asked if they have been to specialist,been in ER /hospitalized or had testing since last visit. No Patient was able to ambulate safely to the examination room. Provider was not notified of possible fall risk * Danial Dempsey MD - 01/25/2024 9:00 AM EST Images from the original note were not included. [address] [address] Dept: [phone] Dept Loc: [phone] Visit type: Established patient Reason for Visit: Health Maintenance (Bp, Pain right hip. 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 Mild diffuse LAD, distal disease. Mod luminal disease up to 50% prox circ. [place] [facility] 11/28/2023. See in media Current Assessment & Plan Crestor 40 mg Essential hypertension Current Assessment & Plan Controlled on metoprolol. Does not tolerate DOREEN due to low BP. Endocrine/Metabolic Obesity, morbid (HCC) Current Assessment & Plan Discuss more at next ov. Consider pharmacotherapy vs bariatrics. Other Hyperlipidemia Overview Last Assessment & Plan: Assessment: Compliant with Rx. Following with cardiology/PCP. Capillary leak syndrome Overview Last Assessment & Plan: Assessment: Patient reports this is chronic, started after chemotherapy. Takes Lasix, wears compression stockings. Current Assessment & Plan Lasix as needed, currently every other day most of the time. Other Visit Diagnoses Chronic hip pain, right - Primary suspect OA, r/o impingemnt vs muscular. X ray and PT. heat, consider volateren gel, lidocaine patch. Tylenol Relevant Orders XR hip right 2 or 3 views External referral to Physical Therapy Vitamin D deficiency Relevant Orders Vitamin D Deficiency Screening (Vit D 25) Paresthesia of foot, bilateral Relevant Orders Vitamin B12 Pain in right testicle Relevant Orders US scrotum Epididymitis check urine cx. start Bactrim DS. u/s of scrotum Relevant Medications sulfamethoxazole-trimethoprim (Bactrim DS) 800-160 MG tablet Dysuria Relevant Orders POCT urinalysis dipstick manually resulted (Completed) Urine culture Follow up in about 6 weeks (around 03/07/2024) for bp, testicle, hip pain. 70 minutes in obtaining hx, physical exam, review of records, documentation, counseling of pt, coordination of care. Subjective HPI 73 yo recent cath and CAD stent. Never has had angina. Doing well on brillinta and ASA. C/o gradual onset right hip Flexor pain, radiates down inner thigh along sartorius. Worse with flexion, adduction, internal rotation. Sometimes sharp. Walks with a hitch at times, loosens up withwalking and pain application- uses a [employer]ac[employer] patch with walking. Hurts with rolling over onto opposite side. Able to lie on that side without pain. Has chronic paresthesias in toes, unchanged. Nothot or inflamed. No known injury. Not related to testicular inflammation. Last couple days right testicle swollen and tender to touch. Hx epididymitis on that side, occasionally will swell over the years since. Now also tender. No fever or chills, F,U,D, hematuria. Stopped vit E. Had amox in last couple weeks for dental work. Takes lasix about every other day. 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 Review of Systems All other systems reviewed and are negative. Or noncontributory No Known Allergies Social History Tobacco Use Smoking status: Never Passive exposure: Never Smokeless tobacco: Never Substance Use Topics Alcohol use: Yes Comment: occasion Objective BP 112/69 (BP Location: Left arm, Patient Position: Sitting) Pulse 56 Temp 36.1 C (97 F) (Temporal) Ht 5' 8 (1.727 m) Wt 238 lb 12.8 oz (108 kg) BMI 36.31 kg/m Physical Exam Vitals and nursing note reviewed. Constitutional: Appearance: Normal appearance. He is obese. HENT: Head: Normocephalic. Cardiovascular: Rate and Rhythm: Normal rate and regular rhythm. Heart sounds: Normal heart sounds. No murmur heard. No friction rub. No gallop. Abdominal: Comments: protuberant Genitourinary: Comments: Buried penis. Left testicle nontender, nonswollen, cord and epididymis palpable and nontender. Right scrotal sac slightly swollen, no erythtma or redness, cord palplable but slightly thickened and tender, epididymis posterior and tender, testicle slightly tender. No palpable hernia. skin penis and scrotum intact. Musculoskeletal: General: No swelling, tenderness or deformity. Comments: Compression stockings in place. Neurological: General: No focal deficit present. Mental Status: He is alert and oriented to person, place, and time. Cranial Nerves: No cranial nerve deficit. Motor: Weakness present. Gait: Gait abnormal. Comments: Mildly antalgic gait. Right hip ROM limited by pain with internal rotation, flexion, adduction and abduction. No palpable tenderness. Weakness of right hip flexor. Psychiatric: Mood and Affect: Mood normal. Behavior: Behavior normal. Thought Content: Thought content normal. Judgment: Judgment normal. Data Reviewed and Summarized Labs: Imaging/Testing: records [facility] s/p AIYANA to [facility] 11/28/2023 Nephro note 11/08/23: Dr Quiles. eGFR 82 CKD stage 2 Danial Dempsey MD documented in this 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) - Post RCA stenting 2 weeks out, 11/27 - Patient is reporting having low heart rates with the metoprolol to tartrate in the 40s but deniesany symptoms at this time, today in the office was 62 - Advised to continue until cardiology follow-up next week [facility] [id number] Miscellaneous Notes* Assessment & Plan Note - Catrina Coelho MD - 12/13/2023 10:03 AM EDTAssociated Problem(s): 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10-31-2024 History of Present illness Narrative* Joelle Colin LPN - 12/13/2023 9:15 AM EDT Pt asked if they have been to specialist,been in ER /hospitalized or had testing since last visit. Yes Hospital * Joelle Colin LPN - 12/13/2023 9:15 AM EDT Patient was able to ambulate safely to the examination room. Provider was not notified of possible fall risk * Catrina Coelho MD - 12/13/2023 9:15 AM EDT Images from the original note were not included. [place] [address] [facility] [address] Post-Discharge Hospital Follow Up Date of Hospital Admission: Date of Hospital Discharge: Readmission Risk Score: Predictive Model Details 2% Factor Value Risk of Hospital Admission or ED Visit Model 76% Is in Relationship Yes 12% Has Anemia Yes 10% Has Medicare Yes 2% Has PCP Yes ASSESSMENT/PLAN 1. Acute rhinitis - ipratropium (Atrovent) 0.03 % nasal spray; Administer 2 sprays into each nostril every 12 hours as needed for rhinitis. PRN, Starting Katelyn 12/13/2023, Normal 2. 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 Catrina Coelho MD 12/13/23 9:28 AM SUBJECTIVE Patient states that he has not been exerting himself much so does not know if he still has symptomsof shortness of breath on exertion, is due for cardiac rehab post his visit with cardiology next week. Patient does report having low heart rate in the 40s, today was 62 states that it is the highestit has been. Patient denies any symptoms at this time. Inpatient course: Discharge summary reviewed Interval History 73-year-old male presenting to the office today for hospital follow-up, was at [facility] about 2 weeks ago for a stent. Patient states that about 2 years ago he had complained about having shortness of breath, at that time calcium score was high, heart catheterization was recommended at thattime but patient did not have it done. Patient states that he then presented with similar symptoms a couple of weeks ago and was then recommended to have heart cath. 11/27 EKG was done showing first-degree AV block with premature atrial complexes, calcium score of 2000 and a heart cath was done which was showing 80% stenosis of the proximal RCA. Patient states that he is now 2 weeks out has closefollow-up with cardiology. New medication started was metoprolol tart late tartrate 25 twice daily and Brilinta along with aspirin and Crestor 40 mg. Patient states that he has a follow-up with cardiology next week and has not yet started cardiac rehab will do so after his cardiology follow-up. I have performed a medication reconciliation during this visit and have reconciled the medications patient is taking as of now against medications ordered at time of hospital discharge. Current Outpatient Medications: alpha tocopherol (Vitamin E) 400 units capsule, Take 400 Units by mouth in the morning., Disp: , Rfl: amoxicillin (Amoxil) 500 MG capsule, Take 2,000 mg by mouth as needed (prior to dental procedure).,Disp: , Rfl: aspirin 81 MG EC tablet, Take 81 mg by mouth daily., Disp: , Rfl: cholecalciferol (Vitamin D-3) 50 MCG (1999) tablet, Take by mouth., Disp: , Rfl: coenzyme Q-10 200 MG capsule, Take 1 tablet by mouth in the morning., Disp: , Rfl: cyanocobalamin (Vitamin B-12) 1000 MCG tablet, Take 2,000 mcg by mouth in the morning., Disp: , Rfl: famotidine (Pepcid) 20 MG tablet, TAKE ONE TABLET BY MOUTH AT BEDTIME DIRECTED, Disp: , Rfl: furosemide (Lasix) 20 MG tablet, 20-40 mg daily as needed for decreasing edema, Disp: 180 tablet, Rfl: 3 ipratropium (Atrovent) 0.03 % nasal spray, Administer 2 sprays into each nostril every 12 hours as needed for rhinitis. PRN, Disp: 30 mL, Rfl: 2 metaxalone (Skelaxin) 800 MG tablet, Take 1 tablet (800 mg) by mouth 2 times daily as needed for muscle spasms., Disp: 180 tablet, Rfl: 3 metoprolol tartrate (Lopressor) 25 MG tablet, Take 25 mg by mouth 2 times daily., Disp: , Rfl: MULTIPLE VITAMINS-MINERALS PO, Take 1 tablet by mouth in the morning., Disp: , Rfl: OMEGA-3 FATTY ACIDS PO, Take 1,000 mg by mouth daily., Disp: , Rfl: pantoprazole (ProtoNix) 40 MG EC tablet, TAKE 1 TABLET DAILY, Disp: 90 tablet, Rfl: 3 potassium chloride ER (Micro-K) 10 MEQ ER capsule, Take 1 capsule (10 mEq) by mouth 2 times daily. Do not crush or chew., Disp: 180 capsule, Rfl: 3 rosuvastatin (Crestor) 40 MG tablet, Take 1 tablet (40 mg) by mouth Nightly., Disp: 90 tablet, Rfl:3 tamsulosin (Flomax) 0.4 MG 24 hr capsule, Take 1 capsule (0.4 mg) by mouth daily., Disp: 90 capsule, Rfl: 3 ticagrelor (Brilinta) 90 MG tablet, Take 90 mg by mouth 2 times daily., Disp: , Rfl: Review of Systems Constitutional: Negative for activity change, appetite change, chills, fatigue and fever. Respiratory: Negative for cough, shortness of breath and wheezing. Cardiovascular: Negative for chest pain and palpitations. Gastrointestinal: Negative for abdominal pain, constipation, diarrhea and vomiting. OBJECTIVE BP 106/65 (BP Location: Left arm, Patient Position: Sitting) Pulse 62 Temp 36.3 C (97.3 F) (Temporal) Ht 5' 8 (1.727 m) Wt 235 lb 6.4 oz (107 kg) BMI 35.79 kg/m Physical Exam Constitutional: General: He is not in acute distress. Appearance: Normal appearance. He is obese. He is not ill-appearing. HENT: Mouth/Throat: Mouth: Mucous membranes are moist. Pharynx: Oropharynx is clear. No oropharyngeal exudate or posterior oropharyngeal erythema. Eyes: Conjunctiva/sclera: Conjunctivae normal. Pupils: Pupils are equal, round, and reactive to light. Cardiovascular: Rate and Rhythm: Normal rate and regular rhythm. Pulses: Normal pulses. Heart sounds: Normal heart sounds. No murmur heard. No friction rub. No gallop. Pulmonary: Effort: Pulmonary effort is normal. No respiratory distress. Breath sounds: Normal breath sounds. No stridor. No wheezing, rhonchi or rales. Abdominal: General: Abdomen is flat. Bowel sounds are normal. There is no distension. Palpations: Abdomen is soft. Tenderness: There is no abdominal tenderness. There is no guarding. Musculoskeletal: General: No swelling. Right lower leg: No edema. Left lower leg: No edema. Skin: General: Skin is warm. Neurological: Mental Status: He is alert. * Denis Osuna MD - 12/13/2023 9:15 AM EDT INDIRECT SUPERVISION THIS SERVICE IS TO BE [...] assessment and treatment plan. documented in this [facility]10-23-2024 Telephone encounter Note* Telephone Encounter - Minnie Aaron LPN - 12/05/2023 12:42 PM EDT Patient has an appt scheduled. [facility] [id number] Miscellaneous Notes* Telephone Encounter - Minnie Aaron LPN - 12/05/2023 12:42 PM EDT Patient has an appt scheduled. * Telephone Encounter - Keyla Corbin LPN - 12/03/2023 3:30 PM EDT Called to make hospital follow up appt. Mailbox is full and can't except any messages at this time.Pt does not have [facility] . * Telephone Encounter - Keyla Corbin LPN - 11/30/2023 1:48 PM EDT He does have appt with Dr Dempsey 02/04/24 at 0900. Please advise if you would like to see him for a Hospital follow up . See note below and advise. * Telephone Encounter - Angelica Torres - 11/30/2023 12:30 PM EDT Name of Caller: abdifatah Contact Reason for Appointment: Pt states was seen in [facility] for a heart cath and stet placement. Pt states was in hospital 11/27-11/28 and was advised to be seen by pcp within 2 weeks. Pt stateswould rather see if appointment is necessary before scheduling. Please advise. Office Name: [facility] Medication Refills need, if any: / Medication Name: / documented in this [facility]10-21-2024 Telephone encounter Note* Telephone Encounter - Keyla Corbin LPN - 12/03/2023 3:30 PM EDT Called to make hospital follow up appt. Mailbox is full and can't except any messages at this time.Pt does not have [facility] . [facility] [id number] Miscellaneous Notes* Telephone Encounter - Keyla Corbin LPN - 12/03/2023 3:30 PM EDT Called to make hospital follow up appt. Mailbox is full and can't except any messages at this time.Pt does not have [facility] . * Telephone Encounter - Keyla Corbin LPN - 11/30/2023 1:48 PM EDT He does have appt with Dr Dempsey 02/04/24 at 0900. Please advise if you would like to see him for a Hospital follow up . See note below and advise. * Telephone Encounter - Angelica Arthur Melissa - 11/30/2023 12:30 PM EDT Name of Caller: [email or web address] Contact Reason for Appointment: Pt was seen in [facility] for a heart cath and stet placement. Pt states was in hospital and was advised to be seen by pcp within 2 weeks. Pt stateswould rather see if appointment is necessary before scheduling. Please advise. Office Name: [facility] Medication Refills need, if any: / Medication Name: / documented in this encounterSThe MetroHealth [id number] Telephone encounter Note* Telephone Encounter - Keyla Corbin LPN - 11/30/2023 1:48 PM EDT He does have appt with Dr Dempsey 02/04/24 at 0900. Please advise if you would like to see him for a Hospital follow up . See note below and advise. [facility] [id number] Telephone encounter Note* Telephone Encounter - Angelica Sandhya Melissa - 11/30/2023 12:30 PM EDT Name of Caller: abdifatah Contact Reason for Appointment: Pt was seen in [facility] for a heart cath and stet placement. Pt states was in hospital and was advised to be seen by pcp within 2 weeks. Pt stateswould rather see if appointment is necessary before scheduling. Please advise. Office Name: [facility] Medication Refills need, if any: / Medication Name: / [facility] [id number] History of Present illness Narrative* Danial Dempsey MD - 11/29/2023 2:00 PM EDT Med rec review post hosp documented in this [facility]10-16-2024 Evaluation note* Diagnosis Onset Date Resolution Status Admit Date History of coronary artery stent placement November 28, 2023 acute December 03, 2024 8:55am Type 2 diabetes mellitus without complication acute November 8:55am Essential (primary) hypertension chronic December 03 8:55am Hyperlipidemia chronic December 032024 8:55am Patent foramen ovale chronic Octo 2024 8:55am [place] [employer] Work Phone: 1(146) 245-226610-15-2024 Telephone encounter Note* Telephone Encounter - Minnie Aaron LPN - 11/27/2023 4:31 PM EDT Spoke with the patient and he said he had a renal panel done in Oct. The report is in the media. Rx's to go to [facility], appt scheduled for in Jan. [facility] [id number] Miscellaneous Notes* Telephone Encounter - Minnie Aaron LPN - 11/27/2023 4:31 PM EDT Spoke with the patient and he said he had a renal panel done in Oct. The report is in the media. Rx's to go to [facility] mail delivery, appt scheduled for in Jan. * Telephone Encounter - Danial Dempsey MD - 11/27/2023 3:21 PM EDT Please ask him to get the renal panel. I reordered it to [facility]. He needs an appt in jan or February for htn, edema, weight, blood sugar. And check if he wants this script to go to the mail order [facility] or to the [facility] pharmacy in [place]. thanks * Telephone Encounter - Minnie Aaron LPN - 11/27/2023 2:48 PM EDT Patient was to return for a follow-up in July for HTN, edema. KCL not on med list. * Telephone Encounter - Sasha Bonner - 11/27/2023 2:23 PM EDT Medication name: potassium chloride ER (Micro-K) 10 MEQ ER capsule Medication dosage: 10 MEQ ER capsule Monthly quantity needed: 60 How many day supply requestin days Medication route: oral (PO) Medication administration time(s): 2 times a day (BID) If taking medication PRN, reason for taking medication: N/A If this is a controlled substance do you receive this or any other controlled medication from any other doctor or facility: N/A Ordering provider: Date of last office visit: 03/16/23 Date of next office visit: None Date of last refill: (see medication tab): 10/09/22 Updated/Validated preferred pharmacy: Yes Patient instructed to contact the pharmacy prior to picking up the medication: Yes documented in this [facility]SThe [facility] [id number] Telephone encounter Note* Telephone Encounter - Danial Dempsey MD - 11/27/2023 3:21 PM EDT Please ask him to get the renal panel. I reordered it to be drawn at [facility]. He needs an appt in jan or February for htn, edema, weight, blood sugar. And check if he wants this script to go to the mail order [facility] or to the [facility] pharmacy in [place]. thanks [facility] [id number] Telephone encounter Note* Telephone Encounter - Minnie Aaron LPN - 11/27/2023 2:48 PM EDT Patient was to return for a follow-up in July for HTN, edema. KCL not on med list. [facility] [id number] Telephone encounter Note* Telephone Encounter - Sasha Bonner - 11/27/2023 2:23 PM EDT Medication name: potassium chloride ER (Micro-K) 10 MEQ ER capsule Medication dosage: 10 MEQ ER capsule Monthly quantity needed: 60 How many day supply requestin days Medication route: oral (PO) Medication administration time(s): 2 times a day (BID) If taking medication PRN, reason for taking medication: N/A If this is a controlled substance do you receive this or any other controlled medication from any other doctor or facility: N/A Ordering provider: Date of last office visit: 03/16/23 Date of next office visit: None Date of last refill: (see medication tab): 10/09/22 Updated/Validated preferred pharmacy: Yes Patient instructed to contact the pharmacy prior to picking up the medication: Yes [facility] [id number] History of Present illness Narrative* Rajan Carl MD - 04/19/2023 10:20 AM EST Cancer History: Breast AJCC Edition: 7th (AJCC), Diagnosis Date: 20-Jan-2010, IIA, T1c pN1 M0 G2 Treatment Synopsis: 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 He presented to Dr. Barcenas at [facility] with a one- month history of a palpable mass in his right breast. He had a mammogram done on January 11, 2010 that showed a 1.3 cm dense mass in the right breast at the central region behind the nipple. This was followed by an ultrasound-guided biopsy on January 26, 2010 and at that point the mass measured 1.4 cm. The pathology report was infiltrating moderately differentiated carcinoma, grade 2. He was taken tothe operating room by Dr. Barcenas on February 01, 2010 for a RIGHT total mastectomy with sentinel lymph node biopsy. Two sentinel lymph nodes were identified and one contained a 0.67 mm focus of metastatic cancer. Progesterone and estrogen receptors were positive and HER-2 was negative. The patient had BRCA testing and is negative for BRCA1 and 2 despite a very positive family historyof breast cancer in a sister and 2 maternal aunts. He also had ADRIA testing and that was negative as well in 2010 He was given 4 cycles of adjuvant chemotherapy with Taxotere and Cytoxan concluding the last cycle on April 29, 2010. He was then referred on to radiation therapy and was treated at [facility] with radiation therapy to the chest wall in the involved lymph node area. Tamoxifen was started 07/2010- 05/2018 History of Present Illness: ID Statement: ABDIFATAH MACARIO is a 71 year old Male Chief Complaint: Breast cancer treatment follow-up and surveillance Interval History: The patient was referred to mo for further evaluation and management of infiltrating ductal carcinoma pT1c, N0, M0 stage IIa, diagnosed on January 20, 2010. Status post 4 cycles of chemotherapy usingTaxotere Cytoxan, radiation therapy and tamoxifen from July 2010 through May 2018. The patient iscurrently not receiving any therapy. He is asymptomatic. His energy is good. Denies issues with sleep or fatigue He denies any vision changes or headache issues, dizziness or loss of balance. Blurry vision due toretinal membrane, follow opthalmology. He denies any shortness of breath, cough, or chest pain He denies any new or unexplained bone aches or pains He denies any skin lesions or masses, oral sores lesions or infections He reports a normal appetite and normal bowel movements, and normal urination. Denies any new stomach pains, nausea, or vomiting. History of GERD and Biliary reflux. Sees GI. Limits red meats and processed sugars. exercise bike 3 times a week regularly sees PCP Review of systems: ROS 14 points performed, See HPI for exceptions System Review All other systems have been reviewed and are negative for complaint. Allergies and Intolerances: Allergies: No Known Allergies: Active Outpatient Medication Profile: * Patient Currently Takes Medications as of 10-Apr-2022 10:46 documented in Structured Notes potassium chloride 10 mEq oral capsule, extended release: Last Dose Taken: , 1 cap(s) orally 2 times a day, Start Date: 26-Feb-2017 Protonix 40 mg oral delayed release tablet: Last Dose Taken: , 1 tab(s) orally once a day furosemide 20 mg oral tablet: Last Dose Taken: , 1 tab(s) orally once a day Crestor 20 mg oral tablet: Last Dose Taken: , 1 tab(s) orally once a day tamsulosin 0.4 mg oral capsule: Last Dose Taken: , 1 cap(s) orally once a day Vitamin B12: Last Dose Taken: Vitamin C 500 mg oral capsule: Last Dose Taken: , 1 cap(s) orally once a day Tylenol 8 HR Arthritis Pain 650 mg oral tablet, extended release: Last Dose Taken: , 2 tab(s) orally every 8 hours Medical History: 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: ICD-10: K22.70, Status: Active Malignant neoplasm of central portion of right male breast: ICD-10: C50.121, Status: Active Vitamin D deficiency: ICD-10: E55.9, Status: Active Chronic venous insufficiency: ICD-10: I87.2, Status: Active Non morbid obesity due to excess calories: ICD-10: E66.09, Status: Active Other osteoarthritis involving multiple joints: ICD-10: M15.8, Status: Active Dyslipidemia: ICD-10: E78.5, Status: Active GERD (gastroesophageal reflux disease): ICD-10: K21.9, Status: Active Diverticulosis: ICD-10: K57.90, Status: Active Social History: Social Substance History: Social History denies smoking, alcohol and drug use Smoking Status never smoker Additional History 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 Denies concerns related to oral cavity/mucosa. Head/Neck: Neck supple, no apparent injury Respiratory/Thorax: Patent airways, normal breath sounds with good chest expansion, thorax symmetric. no wheezing, rales or rhonchi Cardiovascular: Regular, rate and rhythm, no murmurs, , normal S 1and S 2 normal distal perfusion Gastrointestinal: Obese , soft, non-tender, no rebound tenderness or guarding, no masses palpable, no organomegaly, Musculoskeletal: ROM intact, no joint swelling, normal strength, no spinal tenderness Extremities: normal extremities Neurological: alert and oriented x4, no apparent sensory or motor abnormalities Breast: right chest wall smooth with scar. Left tissue smooth but thick - no masses or nodules. Areolar area with mild asymmetric color Axilla clear Lymphatic: No cervical, supraclavicular, infraclavicular, or axillary lymphadenopathy Psychological: Appropriate mood and behavior Skin: Warm and dry, no lesions, no rashes, no jaundice Lab Results: Radiology Result: Results MG Breast Tomosynthesis Scr Left Patient Name: ABDIFATAH MACARIO Mammography ACCESSION EXAM DATE/TIME PROCEDURE ORDERING PROVIDER [id number] 12/08/2021 08:02 EDT MG Breast Tomosynthesis MD YOJANA, MARISSA Botello Scr Left CPT code 98490 29030 Reason For Exam (MG Breast Tomosynthesis Scr Left) routine Report TIME SINCE LAST MAMMOGRAM: Last mammogram was performed 1 year ago. REASON FOR EXAM: screening, asymptomatic. PROCEDURE: MG BREAST TOMOSYNTHESIS SCR LEFT: DECEMBER 08, 2021 - 2D/3D Procedure 3D CC and MLO view(s) were taken of the left breast. 2D CC and MLO view(s) were taken of the left breast. Prior study comparison: December 07, 2020, left breast MG breast tomosynthesis scr left performed at [facility]. November 03, 2019, left breast MG breast tomosynthesis scr left performed at [facility]. October 28, 2018, left breast MG breast tomosynthesis scr left performed at [facility]. TISSUE DENSITY: BIRADS B - There are scattered fibroglandular densities. . FINDINGS: No suspicious masses, architectural distortions or suspiciously clustered microcalcifications are identified. There is no evidence of skin thickening or nipple retraction. There are no significant changes when compared with prior studies. No mammographic evidence of malignancy. Markings on images: BB's = Nipples; skin lesions [employer] = Palpable Line = Scar 2D digital mammography and tomosynthesis imaging were performed and reviewed with CAD. ASSESSMENT: Category 1 Negative Mammography Report RECOMMENDATION: Routine screening mammogram of the left breast in 1 year. . Report Dictated on Signed Date and Time: 12/08/2021 8:09 am Signed by: MD LARA LAUREN B Assessment and Plan: The patient was evaluated on April 19, 2023 1. Male breast exam: Stage II disease without evidence of reoccurrence and stable exam. He finished 8 years of adjuvant endocrine therapy, stopping Tamoxifen in May 2018. - There is no evidence of breast cancer recurrence based on her clinical exam today. -mammogram: 12/08/21: cat 1 -mammogram 03/27/23 benign findings. Ordered mammogram for March 28, 2024. 2. Genetic risks: My suspicion is high, BRCA testing was negative though ? test and done some time ago. Will re-consult genetics. Family history reviewed. 3. Biliary reflux -monitored by GI specialist [facility] Phone: [phone]) 830-794502-14-2024 Telephone encounter Note* Telephone Encounter - Minnie Aaron LPN - 03/28/2023 10:41 AM EST Spoke with the patient and he told me he takes the Flomax once a day, every day. [facility] [id number] Miscellaneous Notes* Telephone Encounter - Minnie Aaron LPN - 03/28/2023 10:41 AM EST Spoke with the patient and he told me he takes the Flomax once a day, every day. * Telephone Encounter - Minnie Aaron LPN - 03/26/2023 3:53 PM EST I don't see the K+ on his med list. * Telephone Encounter - Shavon Davis - 03/26/2023 1:47 PM EST Ordering provider: Dr. Dempsey Date of last office visit: 03.16.2023 Date of next office visit: NA Updated/Validated preferred pharmacy: Yes [facility]. Ph. [phone] Patient instructed to contact the pharmacy prior to picking up the medication: Yes (1) Medication name: tamsulosin (Flomax) 0.4 MG 24 hr capsule Medication dosage: 0.4 mg (Miligrams Monthly quantity needed: 90 How many day supply requestin days Medication route: oral (PO) Medication administration time(s): daily If taking medication PRN, reason for taking medication: N/A If this is a controlled substance do you receive this or any other controlled medication from any other doctor or facility: No Date of last refill (see medication tab): 12.22.2022 (2) Medication name: potassium chloride ER (Micro-K) 10 MEQ ER capsule Medication dosage: 10 MEQ Monthly quantity needed: 180 How many day supply requestin days Medication route: oral (PO) Medication administration time(s): daily If taking medication PRN, reason for taking medication: N/A If this is a controlled substance do you receive this or any other controlled medication from any other doctor or facility: No Date of last refill (see medication tab): 10.09.2022 documented in this encounterSThe [facility] [id number] Telephone encounter Note* Telephone Encounter - Minnie Aaron LPN - 03/26/2023 3:53 PM EST I don't see the K+ on his med list. [facility] [id number] Miscellaneous Notes* Telephone Encounter - Minnie Aaron LPN - 03/26/2023 3:53 PM EST I don't see the K+ on his med list. * Telephone Encounter - Shavon Davis - 03/26/2023 1:47 PM EST Ordering provider: Dr. Dempsey Date of last office visit: 03.16.2023 Date of next office visit: NA Updated/Validated preferred pharmacy: Yes [facility]. Ph. [phone] Patient instructed to contact the pharmacy prior to picking up the medication: Yes (1) Medication name: tamsulosin (Flomax) 0.4 MG 24 hr capsule Medication dosage: 0.4 mg (Miligrams Monthly quantity needed: 90 How many day supply requestin days Medication route: oral (PO) Medication administration time(s): daily If taking medication PRN, reason for taking medication: N/A If this is a controlled substance do you receive this or any other controlled medication from any other doctor or facility: No Date of last refill (see medication tab): 12.22.2022 (2) Medication name: potassium chloride ER (Micro-K) 10 MEQ ER capsule Medication dosage: 10 MEQ Monthly quantity needed: 180 How many day supply requestin days Medication route: oral (PO) Medication administration time(s): daily If taking medication PRN, reason for taking medication: N/A If this is a controlled substance do you receive this or any other controlled medication from any other doctor or facility: No Date of last refill (see medication tab): 10.09.2022 documented in this [facility]02-12-2024 Telephone encounter Note* Telephone Encounter - Shavon Davis - 03/26/2023 1:47 PM EST Ordering provider: Dr. Dempsey Date of last office visit: 03.16.2023 Date of next office visit: NA Updated/Validated preferred pharmacy: Yes [facility] Steve Dyson [facility]. . [phone] Patient instructed to contact the pharmacy prior to picking up the medication: Yes (1) Medication name: tamsulosin (Flomax) 0.4 MG 24 hr capsule Medication dosage: 0.4 mg (Miligrams Monthly quantity needed: 90 How many day supply requestin days Medication route: oral (PO) Medication administration time(s): daily If taking medication PRN, reason for taking medication: N/A If this is a controlled substance do you receive this or any other controlled medication from any other doctor or facility: No Date of last refill (see medication tab): 12.22.2022 (2) Medication name: potassium chloride ER (Micro-K) 10 MEQ ER capsule Medication dosage: 10 MEQ Monthly quantity needed: 180 How many day supply requestin days Medication route: oral (PO) Medication administration time(s): daily If taking medication PRN, reason for taking medication: N/A If this is a controlled substance do you receive this or any other controlled medication from any other doctor or facility: No Date of last refill (see medication tab): 10.09.2022 [facility] [id number] History of Present illness Narrative* Danial Dempsey MD - 03/16/2023 8:30 AM EST Images from the original note were not included. [facility] [address] Dept: [phone] Dept Loc: [phone] Visit type: Established patient Reason for Visit: Follow-up and Hypertension Assessment and Plan Problem List Items Addressed This Visit Circulatory Essential hypertension - Primary Relevant Orders Basic metabolic panel Endocrine/Metabolic Obesity, morbid (HCC) Other Hyperlipidemia Overview Last Assessment & Plan: Assessment: Compliant with Rx. Following with cardiology/PCP. Relevant Medications rosuvastatin (Crestor) 40 MG tablet Other Visit Diagnoses Bilateral leg edema Relevant Orders Basic metabolic panel Muscle spasms of neck Relevant Medications metaxalone (Skelaxin) 800 MG tablet ASCVD risk down from 20 to 15% just with decrease in bp. Agreed to increase crestor to 40 mg due torisk still at 15%. Do not know original lipid values.suggest he talk to the supervisor modern languages about goals. Still counts as prediabetes. Might benefit from metformin but at his age unlikely to progress to full diabetes. Might get some help with wt loss with metformin. Agreed not to start at this time. To titrate lasix 20 - 40 mg daily as needed for edema Encouraged weight loss as will address most of these issues . Bmp in 3 months due to diuretic use Follow up in about 4 months (around 07/15/2023) for bp, weight, edema. Subjective HPI 72 yo male for bp recheck. reports medication compliance. BP, weight and edema go up together. When gets edema off with lasix decrease in wt and BP. Using compression stockings Plans to increase activity with better weather. Trying some sort of paleo keto diet. No side effects from statin Had a high calcium score. Insurance denied stress test as noo symptoms Review of Systems No Known Allergies Social History Tobacco Use Smoking status: Never Passive exposure: Never Smokeless tobacco: Never Substance Use Topics Alcohol use: Yes Comment: occasion Objective BP 122/76 (BP Location: Left arm, Patient Position: Sitting) Pulse 74 Temp 36.2 C (97.1 F) (Temporal) Ht 5' 8 (1.727 m) Wt 236 lb 1.6 oz (107 kg) BMI 35.90 kg/m Physical Exam Data Reviewed and Summarized Labs: Lab Results Component Value Date WBC 5.8 03/03/2023 HGB 14.0 03/03/2023 HCT 41.7 03/03/2023 PLT 276 03/03/2023 CHOL 174 12/28/2021 TRIG 195 (H) 12/28/2021 HDL 50 12/28/2021 ALT 12 03/03/2023 AST 14 03/03/2023 NA 139 08/23/2021 K 4.6 08/23/2021 CL 102 08/23/2021 CREATININE 0.95 03/03/2023 BUN 13 03/03/2023 CO2 28 03/03/2023 TSH 2.57 03/03/2023 PSA 0.672 08/23/2021 Hemoglobin A1c 6.3 Imaging/Testing: The 10-year ASCVD risk score (Sandy BURCIAGA, et al., 2019) is: 15.6% Values used to calculate the score: Age: 72 years Sex: Male Is Non- : No Diabetic: No Tobacco smoker: No Systolic Blood Pressure: 122 mmHg Is BP treated: No HDL Cholesterol: 51 mg/dL Total Cholesterol: 151 mg/dL Danial Dempsey MD * Joelle Colin LPN - 03/16/2023 8:30 AM EST Pt asked if they have been to specialist,been in ER /hospitalized or had testing since last visit. no * Joelle Colin LPN - 03/16/2023 8:30 AM EST Patient was able to ambulate safely to the examination room. Provider was not notified of possible fall risk documented in this [facility]01-19-2024 History of Present illness Narrative* Joelle Colin LPN - 03/02/2023 8:30 AM EST Pt asked if they have been to specialist,been in ER /hospitalized or had testing since last visit. no * Joelle Colin LPN - 03/02/2023 8:30 AM EST Patient was able to ambulate safely to the examination room. Provider was not notified of possible fall risk * Jimbo Jean - 03/02/2023 8:30 AM EST Images from the original note were not included. [facility] [address] [facility] [address] Dept: [phone] Dept Loc: [phone] Visit type: Established patient Reason for Visit: Follow-up Assessment and Plan Problem List Items Addressed This Visit Circulatory Essential hypertension - Primary Relevant Orders Comprehensive metabolic panel TSH Genitourinary BPH (benign prostatic hyperplasia) Relevant Orders PSA Screening Endocrine/Metabolic Prediabetes Relevant Orders TSH Hemoglobin A1c Obesity, morbid (HCC) Hematologic Macrocytic anemia Relevant Orders CBC Other Hyperlipidemia Relevant Orders Lipid panel Comprehensive metabolic panel Other Visit Diagnoses Vitamin D deficiency Relevant Orders Vitamin D Deficiency Screening (Vit D 25) Need for immunization against influenza Relevant Orders Influenza, high-dose seasonal, quadrivalent, preservative free Ilir is happy with his pain control for his back and neck pain and has no other complaints. We will continue on his current medications and treatment plans. We will order a CMP, CBC, lipid panel, TSH, HbA1C, screening PSA, and Vit D level due to his hypertension and other diagnoses. We also administered his flu shot. Follow up in about 1 month (around 04/02/2023) for Hypertension, edema. current treatment plan is effective, no change in therapy, orders and follow up as documented in EMR, repeat labs ordered prior to next appointment, reviewed compliance with lifestyle measures, reviewed diet, exercise and weight control Return visit in 1 month. Subjective Ilir Macario is a 72-year-old male with a history of hypertension, hyperlipidemia, prediabetes, Vit Ddeficiency, breast cancer, BPH and macrocytic anemia who presents for follow-up. He has no complaints other than some chronic back and neck pain which is controlled with metaxalone. He says that he is still taking lasix PRN for edema in his bilateral lower extremities as a complication from chemotherapy. His BPH symptoms are well controlled on tamsulosin. He also wanted his flu shot today. Review of Systems Constitutional: Negative for activity change, appetite change, fatigue and unexpected weight change. HENT: Negative for ear pain and tinnitus. Respiratory: Negative for cough, chest tightness and shortness of breath. Cardiovascular: Negative for chest pain and palpitations. Gastrointestinal: Negative for abdominal distention, abdominal pain, constipation, diarrhea and nausea. Genitourinary: Negative for difficulty urinating, dysuria and enuresis. Neurological: Negative for tremors, weakness, light-headedness and numbness. No Known Allergies Outpatient Medications Prior to [...] 1 CAPSULE DAILY 90 capsule 3 No facility-administered medications prior to visit. Patient Active Problem List Diagnosis Date Noted Obesity, morbid (HCC) 03/02/2023 Priority: Medium BPH (benign prostatic hyperplasia) 12/21/2021 Priority: Medium [...] 12 or folate def. Likely related to fci effectas of chemo. 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 ADHD (attention deficit hyperactivity disorder) 05/03/2020 History of breast cancer in male 05/03/2020 Overview Note: Stage IIA Patent foramen ovale 05/03/2020 Overview Note: Per cardio no treatment needed 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 05/03/2020 Overview Note: egd dec 2015 Chronic superficial gastritis without bleeding 05/03/2020 Overview Note: With atypia Essential hypertension 05/03/2020 Social History Tobacco Use Smoking status: Never Passive exposure: Never Smokeless tobacco: Never Substance Use Topics Alcohol use: Yes Comment: occasion Family History Problem Relation Name Age of Onset Liver disease Mother BAILEY Kidney disease Other dye-induced renal failre Objective BP (!) 145/80 (BP Location: Left arm, Patient Position: Sitting) Pulse 64 Temp 36.4 C (97.6 F) (Temporal) Ht 5' 8 (1.727 m) Wt 238 lb 11.2 oz (108 kg) BMI 36.29 kg/m Physical Exam Constitutional: Appearance: Normal appearance. HENT: Head: Normocephalic and atraumatic. Right Ear: Tympanic membrane, ear canal and external ear normal. Left Ear: Tympanic membrane, ear canal and external ear normal. Mouth/Throat: Mouth: Mucous membranes are moist. Pharynx: Oropharynx is clear. Eyes: Conjunctiva/sclera: Conjunctivae normal. Neck: Vascular: No carotid bruit. Cardiovascular: Rate and Rhythm: Normal rate and regular rhythm. Pulses: Normal pulses. Heart sounds: Normal heart sounds. Pulmonary: Effort: Pulmonary effort is normal. Breath sounds: Normal breath sounds. Abdominal: General: Bowel sounds are normal. Palpations: Abdomen is soft. There is no mass. Tenderness: There is no abdominal tenderness. There is no guarding. Musculoskeletal: Cervical back: Neck supple. Right lower leg: Edema present. Left lower leg: Edema present. Comments: Bilateral 1-2+ pitting edema Skin: General: Skin is warm and dry. Neurological: Mental Status: He is alert. Psychiatric: Mood and Affect: Mood normal. Behavior: Behavior normal. Data Reviewed and Summarized Labs: Lab Results Component Value Date WBC 7.4 08/23/2021 HGB 13.0 08/23/2021 CHOL 174 12/28/2021 TRIG 195 (H) 12/28/2021 HDL 50 12/28/2021 AST 24 08/23/2021 NA 139 08/23/2021 K 4.6 08/23/2021 CL 102 08/23/2021 CREATININE 1.08 08/23/2021 BUN 20 (H) 08/23/2021 CO2 32 (H) 08/23/2021 TSH 2.459 08/23/2021 PSA 0.672 08/23/2021 Imaging/Testing: ARMANI SOFYA DIGITAL SCREEN UNI LEFT Patient Name: ABDIFATAH MACARIO Mammography ACCESSION EXAM DATE/TIME PROCEDURE ORDERING PROVIDER [id number] 12/08/2021 08:02 EDT MG Breast Tomosynthesis MD YOJANA, MARISSA Botello Scr Left CPT code 30967 [id number] Reason For Exam (MG Breast Tomosynthesis Scr Left) routine Report TIME SINCE LAST MAMMOGRAM: Last mammogram was performed 1 year ago. REASON FOR EXAM: screening, asymptomatic. PROCEDURE: MG BREAST TOMOSYNTHESIS SCR LEFT: DECEMBER 08, 2021 - 2D/3D Procedure 3D CC and MLO view(s) were taken of the left breast. 2D CC and MLO view(s) were taken of the left breast. Prior study comparison: December 07, 2020, left breast MG breast tomosynthesis scr left performed at [facility]. November 03, 2019, left breast MG breast tomosynthesis scr left performed at [facility]. October 28, 2018, left breast MG breast tomosynthesis scr left performed at [facility]. TISSUE DENSITY: BIRADS B - There are scattered fibroglandular densities. . FINDINGS: No suspicious masses, architectural distortions or suspiciously clustered microcalcifications are identified. There is no evidence of skin thickening or nipple retraction. There are no significant changes when compared with prior studies. No mammographic evidence of malignancy. Markings on images: BB's = Nipples; skin lesions [employer] = Palpable Line = Scar 2D digital mammography and tomosynthesis imaging were performed and reviewed with CAD. ASSESSMENT: Category 1 Negative Mammography Report RECOMMENDATION: Routine screening mammogram of the left breast in 1 year. . Report Dictated on --- Final --- Signed Date and Time: 12/08/2021 8:09 am Signed by: MD JANE, FADI Jean Associated attestation - Danial Dempsey MD - 03/05/2023 5:27 PM EST I personally saw and evaluated this patient with the student and was present for the jones componentsof the visit. The student note represents my own independent assessment and plan except as noted below documented in this [facility]12-21-2023 History of Present illness Narrative* Davis Crystal PA-C - 02/01/2023 1:00 PM EST Images from the original note were not included. Prechart note: (the following data was documented before the visit began) Rooming: vision screening, living will, and clock :) Possible agenda: Provider notes: Health Maintenance to be addressed today: Click to review open orders Labs Encounters Imaging [place] Medicaid Formulary ([place]/[facility]/[place]/[facility]) [facility] Health Maintenance Due Topic RSV Immunization aged 60 or older (1 - 1-dose 60+ series) Influenza Vaccine (1) COVID-19 Vaccine (2022- season) (end precharting)- [facility] [address] [facility] [address] Dept: [phone] Dept Chief Complaint: Abdifatah Macario is an 72 y.o. male here for an annual wellness visit. Assessment/Plan : Problem List Items Addressed This Visit Circulatory Essential hypertension - Chronic, stable. BP in office was 129/70. Patient is not currently on any hypertension medicationmanagement. Endocrine/Metabolic Prediabetes Last A1c was 09/2021 and [...] current healthcare providers: Patient Care Team: Danial Dempsey MD as PCP - General No orders [...] 20/60 20/40 With correction 20/30 20/60 20/40 Davis Crystal PA-C 02/01/2023 * Tessie Renae LPN - 02/01/2023 1:00 PM EST Pt asked if they have been to specialist,been in ER /hospitalized or had testing since last visit. Yes * Tessie Renae LPN - 02/01/2023 1:00 PM EST Patient was able to ambulate safely to the examination room. Provider was not notified of possible fall risk documented in this [facility]12-21-2023 Instructions* Patient Instructions* Davis Crystal PA-C - 02/01/2023 1:00 PM EST Personalized Preventative Plan for Abdifatah Macario - 02/01/2023 Medicare offers a range of preventative health benefits. Some of the tests and screenings are paid in full while others may be subject to a deductible, co- insurance, and / or copay. Some of these benefits include a comprehensive review of your medical history including lifestyle, illnesses that mayrun in your family, and various assessments and [...] Recommendations: A preventive eye exam by an hospital cleaning specialist is recommended every 1-2 years to screen for glaucoma, cataracts, macular degeneration, and other eye disorders. A preventive dental visit is recommended every 6 months. Try to get at least 150 minutes of exercise per week or 10,000 steps per day on a pedometer. You need 1200-1500mg of calcium and 1703-4035 international units of vitamin D per day. [...] bicycle or a motorcycle documented in this [facility]10-02-2023 History of Present illness Narrative* Pola Salmeron RN - 11/13/2022 9:00 AM EDT Pt asked if they have been to specialist,been in ER /hospitalized or had testing since last visit. no * Pola Salmeron RN - 11/13/2022 9:00 AM EDT Patient was able to ambulate safely to the examination room. Provider was not notified of possible fall risk * Norm Villafuerte MD - 11/13/2022 9:00 AM EDT Images from the original note were not included. [facility] [address] [facility] [address] Dept: [phone] Dept Loc: [phone] Visit type: Established patient Reason for Visit: [...] months (around 02/13/2023) for Medicare Visit with Cherelle (whenever available). current treatment plan is effective, no change in therapy, orders and follow up as documented in EMR, reviewed medications and side effects in detail Subjective HPI This is a 72-year-old male who presents to the clinic today for follow-up for anxiety. This is moreof a situational anxiety that is related to [...] by mouth 2 times daily. (Patient not taking:Reported on 11/13/2022) 360 tablet 3 potassium chloride [...] 12 or folate def. Likely related to fci effectas of chemo. 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 ADHD (attention deficit hyperactivity disorder) 05/03/2020 History of breast cancer in male 05/03/2020 Overview Note: Stage IIA Patent foramen ovale 05/03/2020 Overview Note: Per cardio no treatment needed 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 05/03/2020 Overview Note: egd [...] Data Reviewed and Summarized NORM VILLAFUERTE MD * Rome Khanna MD - 11/13/2022 9:00 AM EDT INDIRECT SUPERVISION THIS SERVICE IS TO BE BILLED UNDER THE PRIMARY CARE EXCEPTION ([facility] -) During or immediately after this visit, I discussed this case with the treating resident. Our discussion included the history obtained by the resident, the resident's exam findings, and the resident's treatment plan. The resident's note reflects the information we discussed, and I agree with the resident's assessment and treatment plan. documented in this [facility]09-26-2023 History and physical note Author Addy Pardo [facility] November 07, 2022 5:12pm Note Date/Time November 01, 2022 9:00pm [facility] Medical Records Department [address] [place] [address] History & Physical Exam 11/01/222050 MR#: [id number] Acct: [id number] Name: ABDIFATAH MACARIO Rep #:[id number] : 1950 72 From: Addy Pardo MD PCP: DANIAL DEMPSEY Status:PRE [facility] Location: [facility] History and Physical Date of Admission: 11/07/22 ABDIFATAH MACARIO, is a 70 M who presents to the labor relations director today for a heart catheterization. He is a gentleman with a history of chronic Cheung's esophagitis, small patent foramen ovale, hypertension and hyperlipidemia who returns for routine follow-up visit. He does have a hx of right breast cancer with chemo and radiation in [id number]. He is now seeing a commercial roofer for protein in his urine. He complete Coronary Calcium testing on 10/17/2022 that was significantly elevated. Based on such, he will proceed with [facility]. He has stopped his enalapril d/t low BP readings. From a cardiac standpoint, patient is doing well. He does not have any chest discomfort/heaviness/tightness. His exercise tolerance is stable for his age. He does not have any worsening symptoms of shortness of breath. He denies any PND. He does not have any orthopnea. He does not have any symptoms of congestive heart failure. He does sometimes feels palpitations, these are not often. He does not have any lightheadedness or dizziness. He does not have anynear-syncope or syncope. He does have chronic lower extremity edema- he does wear his compression stockings. He is in lasix for this. He does not have any symptoms of claudication. Intake Vital Signs: See EMR Intake Visit Reasons: [facility] Steam Bone Press Tender Required: No Accompanied by: Self Allergies No Known Allergies Allergy (Verified 04/14/22 09:09) Medications See EMR [facility] Medical History (Updated 04/14/22 @ 09:31 by Caroline Calloway PA, PA) Cheung esophagus Bile reflux gastritis Breast cancer in male Essential (primary) hypertension Hyperlipidemia Obesity Patent foramen ovale Preop cardiovascular exam Surgical History H/O right mastectomy History of total bilateral knee replacement (TKR) Family History Other Breast cancer CAD (coronary artery disease) Social History Smoking Status: Never smoker ROS Const Const: Negative for fatigue, weakness, headache(s), frequent falls, excessive sweating, weight gain or weight loss Eyes Eyes: Negative for blind spots, loss of peripheral vision, transient loss of vision, blurry vision, change in vision or double vision ENT ENT: Negative for headache(s), dizziness, tinnitus, Nosebleed/epistaxis or balance problems Cardio Chest Pain: No Palpitations: No Edema: None Muscle aches with walking: None Resp Respiratory: Negative for SOB with activity, SOB at rest, SOB orthopnea\SOB lying down or Cough GI GI: Negative nausea, vomiting, heartburn, bloating, vomiting blood/hematemesis, bright, red blood in stools or black,tarry stools : Negative for hematuria Musc Musc: Negative for muscle aches/ myalgia, muscle weakness, joint pain or balanceproblems Skin Skin: Negative rash or wounds Neuro Neuro: Negative for dizziness, lightheadedness, near syncope, syncope, orthostatic symptoms, frequent falls, headache(s), weakness, confusion, memory loss, restless legs, blurry vision or double vision Shun Hematologic/Lymphatic: Negative for easy bleeding or easy bruising Endo Endo: Negative for fatigue, cold intolerance, heat intolerance or excessive sweating Psych Psych: Negative for anxiety or depression Allergy Allergy/Immunology: Negative for rash Cardiology Exam Const Appearance: cooperative, healthy appearing, comfortable, no acute distress and well developed Orientation: alert, awake and oriented x3 Head Head: normal to inspection Ears: hearing grossly normal bilaterally Nose: external nose normal Face and Sinus: face symmetric Mouth: oral mucosae normal, lip normal and moist mucous membranes Eyes General: appearance normal, both eyes and all related structures Eyelids: eyelids normal Conjunctivae: conjunctivae normal Pupils: PERRL EOM: EOM intact bilaterally Neck Neck: normal visual inspection and trachea midline; Negative no JVD Carotids: Negative bruit Chest Chest inspection: normal inspection of the chest Auscultation: Bilateral: Clear to Auscultation Cardio Palpation: normal PMI Rate: regular rate Rhythm: regular rhythm Heart sounds: S1 normal and S2 normal; Negative rub, gallop or murmur GI GI: soft, no hepatosplenomegaly and bowel sounds present Neuro General: patient alert, patient awake, patient oriented x3 and CN's II-XI intactbilaterally Extremities Pulses: Normal: Right Posterior Tibial Pulse, Left Posterior Tibial Pulse, RightRadial Pulse and Left Radial Pulse Lower Extremity Edema: None: Bilateral Psych Psychological: normal affect Supplemental Info Stress test 2017: 1. Exercise myocardial perfusion stress test with no evidence of ischemia at a high workload. 2. Excellent functional work capacity. 3. No clinical angina noted. Echocardiogram 05/08/2022: Interpretation Summary Normal LV size. Left ventricular systolic function is normal. The estimated ejection fraction is 65 %. Pulmonary artery systolic pressure is 37 mmHg. The global longitudinal strain is normal. The global longitudinal strain = - 19.9% (normal). Coronary Angiography CT from 10/17/2022: Findings Coronary Artery Left Main (LM): 0 Left Anterior Descending (LAD): 1,118 Left Circumflex (LCX): 443 Right Coronary Artery (RCA): 980 Total Agatston Score: 2,541 Percentile Ranking: Greater than 90th percentile Calcium Score: Extensive: 2-3 vessels w/severe amount of plaque Conclusion: Extensive atherosclerotic plaquing noted with significant calcification noted inthe left anterior descending artery and right coronary artery territories. Significantly elevated compared to people of the same gender and age. Assessment and Plan Assessment and Plan (1) Essential (primary) hypertension: Status: Chronic Plan: Patient had stopped his enalapril due to hypotension. He will continue with hiscurrent dose of diuretics. His PCP is managing his kidney function. He has been diuretics for chronic lower extremity edema following his vasectomy. (2) Patent foramen ovale: Status: Chronic Plan: Stable, will repeat echocardiogram to evaluate stability. (3) Hyperlipidemia: Status: Chronic Plan: managed by PCP, will continue with current dose of statin (4) Abnormal Test Status: Chronic Plan: On account of elevated calcium score, he will proceed with [facility]. Depending on results, further recommendation will be made. 11/07/22 1712 <Electronically signed by Addy Pardo MD> Cosigner Signature (if applicable): 11/03/22 1232 <Electronically signed by Neal Ceja NP [employer]OOK[facility] [employer]ULFITE-C> CC: COOKER SULFITEBryceC Neal Ceja; Dr. Addy Pardo MD; DANIAL DEMPSEY~ Signed [facility] Work Phone: [phone]) 221-453209-19-2023 History of Present illness Narrative* Danial Dempsey MD - 10/31/2022 4:47 PM EDT Note that patient has previously informed me of this result and that follow up was going forward through his specialist documented in this [facility]08-29-2023 History of Present illness Narrative* Iram Garza LPN - 10/10/2022 2:30 PM EDT Pt asked if they have been to specialist,been in ER /hospitalized or had testing since last visit. yes * Iram Garza LPN - 10/10/2022 2:30 PM EDT Patient was able to ambulate safely to the examination room. Provider was not notified of possible fall risk * Norm Villafuerte MD - 10/10/2022 2:30 PM EDT Images from the original note were not included. [facility] [address] [place] [address] Dept: [phone] Dept Loc: [phone] Visit type: Established patient Reason for Visit: [...] the clinic today with complaints of anxiousness. Patientstates that he is going through the stress [...] was not happy that it takes several week s for it to kick in.. Patient denies suicidal and homicidal ideation. Review [...] 12 or folate def. Likely related to fci effectas of chemo. 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 ADHD (attention deficit hyperactivity disorder) 05/03/2020 History of breast cancer in male 05/03/2020 Overview Note: Stage IIA Patent foramen ovale 05/03/2020 Overview Note: Per cardio no treatment needed 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 05/03/2020 Overview Note: egd [...] (1.727 m) Wt 225 lb 1.6 oz (102kg) BMI 34.23 kg/m Physical Exam Vitals and nursing note reviewed. Constitutional: General: He is not in acute distress. Neurological: Mental Status: He is alert. Gait: Gait normal. Psychiatric: Comments: Maintains good eye contact. Expresses detailed insight of situational anxiousness. Data Reviewed and Summarized NORM VILLAFUERTE MD * Emmanuel Palacios MD - 10/10/2022 2:30 PM EDT Images from the original note were not included. INDIRECT SUPERVISION THIS SERVICE IS TO BE BILLED UNDER THE PRIMARY CARE EXCEPTION ([facility] -) During or immediately after this visit, I discussed this case with the treating resident. Our discussion included the history obtained by the resident, the resident's exam findings, and the resident's treatment plan. The resident's note reflects the information we discussed, and I agree with the resident's assessment and treatment plan. -Emmanuel Palacios MD, [facility] Family Medicine documented in this [facility]08-29-2023 Miscellaneous Notes* Addendum Note - Norm Villafuerte MD - 10/10/2022 2:30 PM EDTAddended by: NORM VILLAFUERTE on: 10/17/2022 10:40 AM Modules accepted: Orders documented in this [facility]08-29-2023 Note* Addendum Note - Norm Villafuerte MD - 10/10/2022 2:30 PM EDTAddended by: NORM VILLAFUERTE on: 10/17/2022 10:40 AM Modules accepted: Orders [place] [id number] Note* Addendum Note - Norm Villafuerte MD - 10/10/2022 2:30 PM EDTAddended by: NORM VILLAFUERTE on: 10/17/2022 10:40 AM Modules accepted: Orders [place] [id number] Note* Addendum Note - Norm Villafuerte MD - 10/10/2022 2:30 PM EDTAddended by: NORM VILLAFUERTE on: 10/17/2022 10:40 AM Modules accepted: [id number] [facility]* Addendum Note - Norm Villafuerte MD - 10/10/2022 2:30 PM EDTAddended by: NORM VILLAFUERTE on: 10/17/2022 10:40 AM Modules accepted: Orders [place] [id number] Note* Addendum Note - Norm Villafuerte MD - 10/10/2022 2:30 PM EDTAddended by: NORM VILLAFUERTE on: 10/17/2022 10:40 AM Modules accepted: Orders [facility] [id number] Evaluation + Plan note* Assessment & Plan Note - Danial Dempsey MD - 05/26/2022 6:11 PM EDTAssociated Problem(s): History of breast cancer in male Surveillance up to date. [facility] [id number] Miscellaneous Notes* Assessment & Plan Note - Danial Dempsey MD - 05/26/2022 6:11 PM EDTAssociated Problem(s): History of breast cancer in male Surveillance up to date. * Assessment & Plan Note - Danial Dempsey MD - 05/26/2022 6:10 PM EDT Associated Problem(s): Capillary leak syndrome Continue Lasix and stockings * Assessment & Plan Note - Danial Dempsey MD - 05/26/2022 6:10 PM EDT Associated Problem(s): Macrocytic anemia monitor * Assessment & Plan Note - Danial Dempsey MD - 05/26/2022 6:06 PM EDT Associated Problem(s): 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 Increased gerd sx's in spite of sucralfate, pantoprazole. Understands need to lose weight for sx management.refer to GI for this and hx of barrets as well as gastritis with atypia on bx. * Assessment & Plan Note - Danial Dempsey MD - 05/26/2022 6:05 PM EDT Associated Problem(s): Essential hypertension Stable, no change. Continue current meds documented in this encounterSThe [facility] [id number] Evaluation + Plan note* Assessment & Plan Note - Danial Dempsey MD - 05/26/2022 6:10 PM EDT Associated Problem(s): Capillary leak syndrome Continue Lasix and stockings [place] [id number] Evaluation + Plan note* Assessment & Plan Note - Danial Dempsey MD - 05/26/2022 6:10 PM EDTAssociated Problem(s): Macrocytic anemia monitor [place] [id number] Evaluation + Plan note* Assessment & Plan Note - Danial Dempsey MD - 05/26/2022 6:06 PM EDTAssociated Problem(s): 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 Increased gerd sx's in spite of sucralfate, pantoprazole. Understands need to lose weight for sx management.refer to GI for this and hx of barrets as well as gastritis with atypia on bx. [place] [id number] Evaluation + Plan note* Assessment & Plan Note - Danial Dempsey MD - 05/26/2022 6:05 PM EDTAssociated Problem(s): Essential hypertension Stable, no change. Continue current meds [place] [id number] History of Present illness Narrative* Danial Dempsey MD - 05/26/2022 10:30 AM EDT Images from the original note were not included. [facility] [address] [facility] [address] Dept: [phone] Dept Loc: [phone] Visit type: Established patient Reason for Visit: Follow-up (Seen by Renal doctor ) and Med Refill Assessment and Plan Problem List Items Addressed This Visit Circulatory Essential hypertension Current Assessment & Plan Stable, no change. Continue current meds Digestive Bile reflux gastritis Relevant Orders External referral to Gastroenterology 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 - Primary Overview egd [...] known side effect of the chemo agent. Hasbeen managing with lasix 40 mg bid (20 mg tabs). Does titrate dose to control symptoms. Renal consult due to large dose of lasix needed (he was taking much more at one point) and discovery of proteinuria. Renal is following. Currently doing will with the edema. Wears compression stockings. Was on DOREEN for proteinuria and htn but did not [...] 2.459 08/23/2021 PSA 0.672 08/23/2021 Imaging/Testing: Danial Dempsey MD * Keyla Corbin LPN - 05/26/2022 10:30 AM EDT Patient was able to ambulate safely to the examination room. Provider was not notified of possible fall risk * Keyla Corbin LPN - 05/26/2022 10:30 AM EDT Pt asked if they have been to specialist,been in ER /hospitalized or had testing since last visit. YES_ seen by Renal and Optometrists documented in this [facility]08-08-2022 Miscellaneous Notes* Telephone Encounter - Carlos Pena Ma - 09/19/2021 9:13 AM EDT Patient phones requesting refills as follows: Pending Prescriptions Disp Refills SUCRALFATE 1 GRAM TABLET 360 tablet 3 Sig: TAKE 1 TABLET FOUR TIMES A DAY JULIA: Yes Please review and advise. Carlos Pena Ma [facility] History of Present illness Narrative* Yvon Warner MD - 05/13/2021 8:32 AM EDT CHIEF COMPLAINT: Patient presents with: Nausea: Colon 11/10/20 labs 12/28/20 HPI Abdifatah Macario is a 70 year old male here today for Nausea (Colon 11/10/20 labs 12/28/20). Patienthas ongoing nausea, requesting zofran. EGD had showed [...] 10 mEq by mouth twice daily. Ipratropium [place] (ATROVENT) 0.03 % nasal spray Use 2 Sprays in the nose as needed. ondansetron (ZOFRAN) 4 mg tablet Take 1 tablet by mouth every 8 hours as needed for nausea/vomiting(for nausea.). amoxicillin (POLYMOX, AMOXIL) 500 mg capsule [...] PAST MEDICAL HISTORY Diagnosis Date Anemia Arthritis Cheung's esophagus BPH (benign prostatic hyperplasia) Breast cancer (HCC) Colon polyps Diverticulosis GERD (gastroesophageal reflux disease) Hiatal hernia HTN (hypertension) Hypercholesteremia Mixed hyperlipidemia Skin cancer PAST SURGICAL HISTORY Procedure Laterality Date ADENOIDECTOMY HX ANKLE SURGERY HX Left 07/1999 removal of hardware COLONOSCOPY GEN ANES 09/18/2012 Diverticulosis COLONOSCOPY GEN ANES 11/10/2020 EGD 12/29/2015 Cheung's Esophagus, Hiatal Hernia, Mild chronic gastritis, mildly [...] 05/13/21 TIME: 8:38 AM [facility] History of Present illness Narrative* Maurice Mcgarry RT(R) - 01/27/2021 10:25 AM EST Radiology Service Progress Note PATIENT NAME: Abdifatah Macario DATE OF SERVICE: January 27, 2021 TIME: 10:46 AM PATIENT IDENTITY VERIFICATION COMPLETED USING TWO (2) IDENTIFIERS: Name and Date of confirmedby patient verbally. FALL SCREENING: Has the patient had 2 falls in the last year or 1 fall with injury or currently using an Ambulatory Assistive Device (Walker, Cane, Wheelchair, Crutches, etc.)? No PATIENT GENDER DATA: Male PATIENT RELEVANT IMPLANT DATA REVIEWED: Not Applicable RADIOLOGY DEPARTMENT: General X-ray: Exam(s) Completed: Lower Extremity X- Ray(s): Knee, AP / Lat / Merchant Left and Wt. Bearing PERIPHERAL IV DATA: Not applicable SIGNED BY: RT Rakesh(R) January 27, 2021 10:46 AM documented in this [facility]21 NoteHNO ID: [id number] Author: Laurie Sotomayor APRN.SCARIFIER OPERATOR Service: Hospital Medicine Author Type: Nurse Practitioner [...] (Oral) Resp 16 Ht 172.7 cm (5' 8) Wt 104.3 kg (230 lb) SpO2 95% [...] further evaluation and treatment. 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 Breast Cancer in Male [...] mg ORAL 2 TIMES DAILY Given, 12/29 81912/28/20658 -- 12/27/201944 pneumatic compression stockings ([place]) 12/27/201944 activity - mobilize patient ([place]) VTE Prophylaxis: VTE prophylaxis appropriate POST OPERATIVE COMPLICATIONS: Complicated by: uneventful/none SIGNATURE: Laurie Sotomayor, MSN, DRAWING TENDER, AUTO RADIATOR MECHANIC-C PATIENT NAME: Abdifatah Macario DATE: December 28, 2020 TIME: 12:55 PM PAGER: [phone] NoteHNO ID: [id number] Author: Megha Tavarez MD Service: Anesthesiology Author [...] surgical anesthetic Staffing Anesthesiologist: Megha Tavarez MD FISHER EEL SPEAR: Mary Lakhani APRN.FISHER EEL SPEAR Performed by: anesthesiologist Preparation Sterility Preparation: hand [...] December 27, 2020 TIME: 2:58 PM CSN: [id number] NoteHNO ID: [id number] Author: Megha Tavarez MD Service: Anesthesiology Author [...] December 27, 2020 TIME: 2:10 PM CSN: [id number] History of Present illness Narrative* Calixto Henriquez RT(R) - 10/13/2020 12:35 PM EDT Radiology Service Progress Note PATIENT NAME: Abdifatah Macario DATE OF SERVICE: October 13, 2020 TIME: 1:10 PM PATIENT IDENTITY VERIFICATION COMPLETED USING TWO (2) IDENTIFIERS: Name and Date of confirmedby patient verbally. FALL SCREENING: Has the patient had 2 falls in the last year or 1 fall with injury or currently using an Ambulatory Assistive Device (Walker, Cane, Wheelchair, Crutches, etc.)? No PATIENT GENDER DATA: Male PATIENT RELEVANT IMPLANT DATA REVIEWED: Not Applicable RADIOLOGY DEPARTMENT: General X-ray: Exam(s) Completed: Lower Extremity X- Ray(s): Knee, AP / Lat / Tunne / Merchant Left PERIPHERAL IV DATA: Not applicable SIGNED BY: RT Lamine(Luigi) October 13, 2020 1:10 PM documented in this encounterL[facility] History of Present illness Narrative* Lizbeth Byrd Tech (Tech) - 04/14/2020 12:45 PM EST Radiology Service Progress Note PATIENT NAME: Abdifatah Macario DATE OF SERVICE: April 14, 2020 TIME: 12:56 PM PATIENT IDENTITY VERIFICATION COMPLETED USING TWO (2) IDENTIFIERS: Name and Date of confirmedby patient verbally. FALL SCREENING: Has the patient had 2 falls in the last year or 1 fall with injury or currently using an Ambulatory Assistive Device (Walker, Cane, Wheelchair, Crutches, etc.)? No PATIENT GENDER DATA: Male PATIENT RELEVANT IMPLANT DATA REVIEWED: Not Applicable RADIOLOGY DEPARTMENT: General X-ray: Exam(s) Completed: Lower Extremity X- Ray(s): Knee, AP / Lat / Merchant Right: PERIPHERAL IV DATA: Not applicable SIGNED BY: Rosales Bauer April 14, 2020 12:56 PM documented in this encounterL[facility]-2021 NoteHNO ID: [id number] Author: Ada Crockett (Sw) Service: Care Management Author Type: Grain Mill Products Inspector Type: Care Mgt Progress Note Filed: 03/16/2020 [...] Care Physician Primary Care Physician Name/Phone: via [employer] TRANSPORTATION ARRANGEMENTS: Transportation Arrangements: Car ADDITIONAL CONTACT [...] 16, 2020 TIME: 10:53 AM PAGER/CONTACT #: [phone] NoteHNO ID: [id number] Author: Antwan Chow (Pa) Service: Orthopaedic Surgery Author Type: Physician House Worker General Type: Progress Notes Filed: 03/16/2020 10:17 AM Note Text: ORTHOPAEDIC POSTOP PROGRESS NOTE SERVICE DATE: 03/16/2020 SERVICE TIME: 10:17 AM Subjective Patient states that they are comfortable Well Controlled knee(s) pain. Denies incisional pain. Objective VITAL SIGNS: BP 126/63 Pulse 74 Temp 36.9 ?C (98.4 ?F) (Oral) Resp 16 Ht 172.7 cm (5' 8) Wt 104.8 kg (231 lb) SpO2 93% [...] Management for discharge planning 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 Breast Cancer in Male [...] 1424 -- 03/15/20 1430 graduated compression stockings (mn,oh) VTE Prophylaxis: VTE prophylaxis appropriate POST OPERATIVE COMPLICATIONS: Complicated by: uneventful/none SIGNATURE: Antwan Chow PA-C PATIENT NAME: Abdifatah Macario DATE: 03/16/2020 TIME: 10:17 AM PAGER/CONTACT #: [phone] NoteHNO ID: [id number] Author: Ada Crockett (Sw) Service: Care Management Author Type: Grain Mill Products Inspector Type: Care Mgt Initial Assessment Filed: 03/15/2020 3:23 PM Note Text: CARE MANAGEMENT PROGRESS NOTE SERVICE DATE: 03/15/2020 SERVICE TIME: 3:21 pm LOS: 0 days [place] of Choice Given: No Reason Not Given: No placements necessary Caregiver is ready, willing and able to meet the patient's needs as recommended by the inter-professional team:: Yes Does the patient have an acute stroke diagnosis, or has the patient had a stroke during this admission?: No Needs Prior to Discharge: To Be Determined Current Advance Directive: Health Care Power of Agency Trainer;Living Will In Chart: No Bar Tacker Sewing Machine Attempted to Assist with AD Completion: Yes SW met with pt at bedside. Pt is here for a right knee replacement. Pt lives at home with his . Pt sts that he has a cane, crutches and a walker. SW talked to pt about HHC and pt declined stating that he is going to out-patient therapy and it is arranged. Pt to be seen by PT/OT, DAV will await their recommendations. DAV will remain available. SIGNATURE: ALEX Gutierrez PATIENT NAME: Abdifatah Macario DATE: March 15, 2020 TIME: 3:21 PM PAGER/CONTACT #: [phone] NoteHNO ID: [id number] Author: Karina Chou (Aa) Service: ? Author Type: Sharepoint Architect Type: Anesthesia Procedure Notes Filed: 03/15/2020 11:28 [...] March 15, 2020 TIME: 11:27 AM CSN: [id number] NoteHNO ID: [id number] Author: Alberto Dowell Service: ? 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 Reason for block: post-op pain management/at surgeon's [...] March 15, 2020 TIME: 11:05 AM CSN: [id number] History of Past illness Narrative* Problem Noted Date Resolved Date Primary osteoarthritis of right knee 03/03/2020 12/20/2020 Dermatochalasis of both upper eyelids 04/07/2019 04/07/2019 documented as of this encounter (statuses as of 05/09/2021) [facility] History of Past illness Narrative* Problem Noted Date Resolved Date Primary osteoarthritis of right knee 03/03/2020 12/20/2020 Dermatochalasis of both upper eyelids 04/07/2019 04/07/2019 documented as of this encounter (statuses as of 05/13/2021) [facility] History of Past illness Narrative* Problem Noted Date Resolved Date Primary osteoarthritis of right knee 03/03/2020 12/20/2020 Dermatochalasis of both upper eyelids 04/07/2019 04/07/2019 documented as of this encounter (statuses as of 05/19/2021) [facility] History of Past illness Narrative* Problem Noted Date Resolved Date Primary osteoarthritis of right knee 03/03/2020 12/20/2020 Dermatochalasis of both upper eyelids 04/07/2019 04/07/2019 documented as of this encounter (statuses as of 09/19/2021) [facility] History of Past illness Narrative* Problem Noted Date Diagnosed Date Resolved Date Primary osteoarthritis of right knee 03/03/2020 12/20/2020 Dermatochalasis of both upper eyelids 04/07/2019 04/07/2019 documented as of this encounter (statuses as of 09/14/2022) [facility] History of Past illness Narrative* Problem Noted Date Diagnosed Date Resolved Date Primary osteoarthritis of right knee 03/03/2020 12/20/2020 Dermatochalasis of both upper eyelids 04/07/2019 04/07/2019 documented as of this encounter (statuses as of 11/30/2022) [facility] History of Present illness Narrative* Yoly Pan (Rt), Tech - 11/12/2019 8:05 AM EDT Radiology Service Progress Note PATIENT NAME: Abdifatah Macario DATE OF SERVICE: November 12, 2019 TIME: 8:00 AM PATIENT IDENTITY VERIFICATION COMPLETED USING TWO (2) IDENTIFIERS: Name and Date of confirmedby patient verbally. FALL SCREENING: Has the patient had 2 falls in the last year or 1 fall with injury or currently using an Ambulatory Assistive Device (Walker, Cane, Wheelchair, Crutches, etc.)? No PATIENT GENDER DATA: Male PATIENT RELEVANT IMPLANT DATA REVIEWED: Yes RADIOLOGY DEPARTMENT: General X-ray: Exam(s) Completed: Lower Extremity X- Ray(s): Knee, AP / Lat / Tunne / Merchant Bilateral and Wt. Bearing: PERIPHERAL IV DATA: Not applicable SIGNED BY: RT Doris November 12, 2019 8:00 AM [facility]a Nausea alone [facility]* Diagnosis S/P total knee replacement, left- Primary documented in this [facility]* Diagnosis Gastroesophageal reflux disease, unspecified whether esophagitis present Duodenogastric bile reflux Nausea Nausea alone Diverticulosis Diverticulosis of colon (without mention of hemorrhage) Hiatal hernia Diaphragmatic hernia without mention of obstruction or gangrene documented in this encounter [facility] note* Diagnosis Nausea- Primary Nausea alone Pain of upper abdomen Abdominal pain, other specified site documented in this encounter [facility] note* Diagnosis Dyspnea, unspecified documented in this encounter [facility] Work Phone: Evaluation note* Diagnosis Bile acid esophageal reflux Duodenogastric bile reflux documented in this encounter [facility] note* Diagnosis Localized edema Edema Isolated proteinuria Proteinuria 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 documented in this encounter [facility] Work Phone: Evaluation note* Diagnosis Onset Date Resolution Status Essential (primary) hypertension chronic Hyperlipidemia chronic Patent foramen ovale [facility] Work Phone: Evaluation note* Diagnosis 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 Bile reflux gastritis Other specified gastritis without mention of hemorrhage Bilateral leg edema Edema Muscle spasms of neck Benign prostatic hyperplasia with urinary obstruction Essential hypertension Unspecified essential hypertension Chronic superficial gastritis without bleeding History of breast cancer in male documented in this encounter [facility] note* Diagnosis Bile acid esophageal reflux Duodenogastric bile reflux documented in this encounter [facility] note* Diagnosis Situational anxiety- Primary Anxiety Anxiety state, unspecified documented in this encounter [facility] noteNo assessment information availableWKet[facility] Work Phone: Evaluation note* Diagnosis Anxiety Anxiety state, unspecified documented in this encounter [facility] note* Diagnosis S/P total knee replacement, left documented in this encounter [facility] note* Diagnosis Encounter for Medicare annual wellness exam- Primary Prediabetes Other abnormal glucose Essential hypertension Unspecified essential hypertension [facility] Diagnosis Essential hypertension- Primary Unspecified essential hypertension Obesity, morbid (HCC) Morbid obesity Benign prostatic hyperplasia without lower urinary tract symptoms Prediabetes Other abnormal glucose Macrocytic anemia Mixed hyperlipidemia Vitamin D deficiency Need for immunization against influenza Need for prophylactic vaccination and inoculation against influenza [facility]* Diagnosis Essential hypertension- Primary Unspecified essential hypertension Bilateral leg edema Edema Mixed hyperlipidemia Obesity, morbid (HCC) Morbid obesity Muscle spasms of neck [facility]* Diagnosis Encounter for screening mammogram for malignant neoplasm of breast documented in this encounter [facility] note* Diagnosis 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 Work Phone: Evaluation note* Diagnosis Encounter for screening mammogram for malignant neoplasm of breast- Primary documented in this encounter [facility] note* Diagnosis S/P total knee replacement, left documented in this [facility]* Diagnosis Pre-operative examination- Primary Preoperative examination, unspecified Primary osteoarthritis of right knee Primary localized osteoarthrosis, lower leg Essential hypertension Unspecified essential hypertension Mixed hyperlipidemia Patent foramen ovale Ostium secundum type atrial septal defect 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 Cheung's esophagus Malignant neoplasm of right male breast, unspecified estrogen receptor status, unspecified site of breast (HCC) Class 2 obesity due to excess calories with body mass index (BMI) of 35.0 to 35.9 in adult, unspecified whether serious comorbidity present Preoperative examination- Primary Preoperative examination, unspecified Primary osteoarthritis of left knee Primary localized osteoarthrosis, lower leg Prediabetes Other abnormal glucose Patent foramen ovale Ostium secundum type atrial septal defect Heart murmur Undiagnosed cardiac murmurs Mixed hyperlipidemia Essential hypertension Unspecified essential hypertension 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 Cheung's esophagus Benign prostatic hyperplasia without lower urinary tract symptoms Anemia, unspecified type Malignant neoplasm of right male breast, unspecified estrogen receptor status, unspecified site of breast (HCC) Bilateral leg edema Edema Class 2 obesity due to excess calories with body mass index (BMI) of 35.0 to 35.9 in adult, unspecified whether serious comorbidity present Primary osteoarthritis of left knee Primary localized osteoarthrosis, lower leg documented in this encounter [facility] note* Diagnosis Pre-operative examination- Primary Preoperative examination, unspecified Primary osteoarthritis of right knee Primary localized osteoarthrosis, lower leg Essential hypertension Unspecified essential hypertension Mixed hyperlipidemia Patent foramen ovale Ostium secundum type atrial septal defect 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 Cheung's esophagus Malignant neoplasm of right male breast, unspecified estrogen receptor status, unspecified site of breast (HCC) Class 2 obesity due to excess calories with body mass index (BMI) of 35.0 to 35.9 in adult, unspecified whether serious comorbidity present Pain Generalized pain Preoperative examination- Primary Preoperative examination, unspecified Primary osteoarthritis of left knee Primary localized osteoarthrosis, lower leg Prediabetes Other abnormal glucose Patent foramen ovale Ostium secundum type atrial septal defect Heart murmur Undiagnosed cardiac murmurs Mixed hyperlipidemia Essential hypertension Unspecified essential hypertension 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 Cheung's esophagus Benign prostatic hyperplasia without lower urinary tract symptoms Anemia, unspecified type Malignant neoplasm of right male breast, unspecified estrogen receptor status, unspecified site of breast (HCC) Bilateral leg edema Edema Class 2 obesity due to excess calories with body mass index (BMI) of 35.0 to 35.9 in adult, unspecified whether serious comorbidity present documented in this encounter [facility] note* Diagnosis Pre-operative examination- Primary Preoperative examination, unspecified Primary osteoarthritis of right knee Primary localized osteoarthrosis, lower leg Essential hypertension Unspecified essential hypertension Mixed hyperlipidemia Patent foramen ovale Ostium secundum type atrial septal defect 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 Cheung's esophagus Malignant neoplasm of right male breast, unspecified estrogen receptor status, unspecified site of breast (HCC) Class 2 obesity due to excess calories with body mass index (BMI) of 35.0 to 35.9 in adult, unspecified whether serious comorbidity present Primary osteoarthritis of right knee Primary localized osteoarthrosis, lower leg Preoperative examination- Primary Preoperative examination, unspecified Primary osteoarthritis of left knee Primary localized osteoarthrosis, lower leg Prediabetes Other abnormal glucose Patent foramen ovale Ostium secundum type atrial septal defect Heart murmur Undiagnosed cardiac murmurs Mixed hyperlipidemia Essential hypertension Unspecified essential hypertension 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 Cheung's esophagus Benign prostatic hyperplasia without lower urinary tract symptoms Anemia, unspecified type Malignant neoplasm of right male breast, unspecified estrogen receptor status, unspecified site of breast (HCC) Bilateral leg edema Edema Class 2 obesity due to excess calories with body mass index (BMI) of 35.0 to 35.9 in adult, unspecified whether serious comorbidity present [facility] Diagnosis Pain Generalized pain Pre-operative examination- Primary Preoperative examination, unspecified Primary osteoarthritis of right knee Primary localized osteoarthrosis, lower leg Essential hypertension Unspecified essential hypertension Mixed hyperlipidemia Patent foramen ovale Ostium secundum type atrial septal defect 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 Cheung's esophagus Malignant neoplasm of right male breast, unspecified estrogen receptor status, unspecified site of breast (HCC) Class 2 obesity due to excess calories with body mass index (BMI) of 35.0 to 35.9 in adult, unspecified whether serious comorbidity present Preoperative examination- Primary Preoperative examination, unspecified Primary osteoarthritis of left knee Primary localized osteoarthrosis, lower leg Prediabetes Other abnormal glucose Patent foramen ovale Ostium secundum type atrial septal defect Heart murmur Undiagnosed cardiac murmurs Mixed hyperlipidemia Essential hypertension Unspecified essential hypertension 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 Cheung's esophagus Benign prostatic hyperplasia without lower urinary tract symptoms Anemia, unspecified type Malignant neoplasm of right male breast, unspecified estrogen receptor status, unspecified site of breast (HCC) Bilateral leg edema Edema Class 2 obesity due to excess calories with body mass index (BMI) of 35.0 to 35.9 in adult, unspecified whether serious comorbidity present [facility]* Diagnosis Diuretic-induced hypokalemia [facility] Diagnosis 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 Bile reflux gastritis Other specified gastritis without mention of hemorrhage Bilateral leg edema Edema Muscle spasms of neck Benign prostatic hyperplasia with urinary obstruction Essential hypertension Unspecified essential hypertension Chronic superficial gastritis without bleeding History of breast cancer in male Diuretic-induced hypokalemia- Primary [facility]* Diagnosis 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 Bile reflux gastritis Other specified gastritis without mention of hemorrhage Bilateral leg edema Edema Muscle spasms of neck Benign prostatic hyperplasia with urinary obstruction Essential hypertension Unspecified essential hypertension Chronic superficial gastritis without bleeding History of breast cancer in male Acute rhinitis- Primary Acute nasopharyngitis (common cold) 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) [facility]* Diagnosis 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 Bile reflux gastritis Other specified gastritis without mention of hemorrhage Bilateral leg edema Edema Muscle spasms of neck Benign prostatic hyperplasia with urinary obstruction Essential hypertension Unspecified essential hypertension Chronic superficial gastritis without bleeding History of breast cancer in male Acute rhinitis- Primary Acute nasopharyngitis (common cold) 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) Transition of care Chronic hip pain, right- Primary Vitamin D deficiency Paresthesia of foot, bilateral Pain in right testicle Unspecified disorder of male genital organs Epididymitis Unspecified orchitis and epididymitis Dysuria Presence of stent in coronary artery in patient with coronary artery disease Essential hypertension Unspecified essential hypertension 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) Obesity, morbid (HCC) Morbid obesity Capillary leak syndrome Mixed hyperlipidemia [facility] Diagnosis 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 Bile reflux gastritis Other specified gastritis without mention of hemorrhage Bilateral leg edema Edema Muscle spasms of neck Benign prostatic hyperplasia with urinary obstruction Essential hypertension Unspecified essential hypertension Chronic superficial gastritis without bleeding History of breast cancer in male Acute rhinitis- Primary Acute nasopharyngitis (common cold) 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) Transition of care Chronic hip pain, right- Primary Vitamin D deficiency Paresthesia of foot, bilateral Pain in right testicle Unspecified disorder of male genital organs Epididymitis Unspecified orchitis and epididymitis Dysuria Presence of stent in coronary artery in patient with coronary artery disease Essential hypertension Unspecified essential hypertension 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) Obesity, morbid (HCC) Morbid obesity Capillary leak syndrome Mixed hyperlipidemia Chronic hip pain, right documented [facility]* Diagnosis 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 Bile reflux gastritis Other specified gastritis without mention of hemorrhage Bilateral leg edema Edema Muscle spasms of neck Benign prostatic hyperplasia with urinary obstruction Essential hypertension Unspecified essential hypertension Chronic superficial gastritis without bleeding History of breast cancer in male Acute rhinitis- Primary Acute nasopharyngitis (common cold) 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) Transition of care Chronic hip pain, right- Primary Vitamin D deficiency Paresthesia of foot, bilateral Pain in right testicle Unspecified disorder of male genital organs Epididymitis Unspecified orchitis and epididymitis Dysuria Presence of stent in coronary artery in patient with coronary artery disease Essential hypertension Unspecified essential hypertension 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) Obesity, morbid (HCC) Morbid obesity Capillary leak syndrome Mixed hyperlipidemia Chronic hip pain, right [facility] Diagnosis 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 Bile reflux gastritis Other specified gastritis without mention of hemorrhage Bilateral leg edema Edema Muscle spasms of neck Benign prostatic hyperplasia with urinary obstruction Essential hypertension Unspecified essential hypertension Chronic superficial gastritis without bleeding History of breast cancer in male Acute rhinitis- Primary Acute nasopharyngitis (common cold) 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) Transition of care Chronic hip pain, right- Primary Vitamin D deficiency Paresthesia of foot, bilateral Pain in right testicle Unspecified disorder of male genital organs Epididymitis Unspecified orchitis and epididymitis Dysuria Presence of stent in coronary artery in patient with coronary artery disease Essential hypertension Unspecified essential hypertension 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) Obesity, morbid (HCC) Morbid obesity Capillary leak syndrome Mixed hyperlipidemia Mixed hyperlipidemia [facility] Diagnosis 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 Bile reflux gastritis Other specified gastritis without mention of hemorrhage Bilateral leg edema Edema Muscle spasms of neck Benign prostatic hyperplasia with urinary obstruction Essential hypertension Unspecified essential hypertension Chronic superficial gastritis without bleeding History of breast cancer in male Acute rhinitis- Primary Acute nasopharyngitis (common cold) 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) Transition of care Chronic hip pain, right- Primary Vitamin D deficiency Paresthesia of foot, bilateral Pain in right testicle Unspecified disorder of male genital organs Epididymitis Unspecified orchitis and epididymitis Dysuria Presence of stent in coronary artery in patient with coronary artery disease Essential hypertension Unspecified essential hypertension 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) Obesity, morbid (HCC) Morbid obesity Capillary leak syndrome Mixed hyperlipidemia Pain in right testicle Unspecified disorder of male genital organs [facility] Diagnosis 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 Bile reflux gastritis Other specified gastritis without mention of hemorrhage Bilateral leg edema Edema Muscle spasms of neck Benign prostatic hyperplasia with urinary obstruction Essential hypertension Unspecified essential hypertension Chronic superficial gastritis without bleeding History of breast cancer in male Acute rhinitis- Primary Acute nasopharyngitis (common cold) 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) Transition of care Chronic hip pain, right- Primary Vitamin D deficiency Paresthesia of foot, bilateral Pain in right testicle Unspecified disorder of male genital organs Epididymitis Unspecified orchitis and epididymitis Dysuria Presence of stent in coronary artery in patient with coronary artery disease Essential hypertension Unspecified essential hypertension 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) Obesity, morbid (HCC) Morbid obesity Capillary leak syndrome Mixed hyperlipidemia Prediabetes- Primary Other abnormal glucose CVD (cardiovascular disease) Unspecified cardiovascular disease Obesity, morbid (HCC) Morbid obesity 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) Muscle spasms of neck Macrocytic anemia [facility] Diagnosis 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 Bile reflux gastritis Other specified gastritis without mention of hemorrhage Bilateral leg edema Edema Muscle spasms of neck Benign prostatic hyperplasia with urinary obstruction Essential hypertension Unspecified essential hypertension Chronic superficial gastritis without bleeding History of breast cancer in male Acute rhinitis- Primary Acute nasopharyngitis (common cold) 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) Transition of care Chronic hip pain, right- Primary Vitamin D deficiency Paresthesia of foot, bilateral Pain in right testicle Unspecified disorder of male genital organs Epididymitis Unspecified orchitis and epididymitis Dysuria Presence of stent in coronary artery in patient with coronary artery disease Essential hypertension Unspecified essential hypertension 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) Obesity, morbid (HCC) Morbid obesity Capillary leak syndrome Mixed hyperlipidemia Prediabetes- Primary Other abnormal glucose CVD (cardiovascular disease) Unspecified cardiovascular disease Obesity, morbid (HCC) Morbid obesity 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) Muscle spasms of neck Macrocytic anemia Acute rhinitis Acute nasopharyngitis (common cold) [facility]* Diagnosis 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 Bile reflux gastritis Other specified gastritis without mention of hemorrhage Bilateral leg edema Edema Muscle spasms of neck Benign prostatic hyperplasia with urinary obstruction Essential hypertension Unspecified essential hypertension Chronic superficial gastritis without bleeding History of breast cancer in male Acute rhinitis- Primary Acute nasopharyngitis (common cold) 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) Transition of care Chronic hip pain, right- Primary Vitamin D deficiency Paresthesia of foot, bilateral Pain in right testicle Unspecified disorder of male genital organs Epididymitis Unspecified orchitis and epididymitis Dysuria Presence of stent in coronary artery in patient with coronary artery disease Essential hypertension Unspecified essential hypertension 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) Obesity, morbid (HCC) Morbid obesity Capillary leak syndrome Mixed hyperlipidemia Prediabetes- Primary Other abnormal glucose CVD (cardiovascular disease) Unspecified cardiovascular disease Obesity, morbid (HCC) Morbid obesity 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) Transition of care Chronic hip pain, right- Primary Vitamin D deficiency Paresthesia of foot, bilateral Pain in right testicle Unspecified disorder of male genital organs Epididymitis Unspecified orchitis and epididymitis Dysuria Presence of stent in coronary artery in patient with coronary artery disease Essential hypertension Unspecified essential hypertension 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) Obesity, morbid (HCC) Morbid obesity Capillary leak syndrome Mixed hyperlipidemia Prediabetes- Primary Other abnormal glucose CVD (cardiovascular disease) Unspecified cardiovascular disease Obesity, morbid (HCC) Morbid obesity 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) Muscle spasms of neck Macrocytic anemia Abnormal mammogram- Primary Abnormal mammogram, unspecified History of breast cancer in male [facility]* Diagnosis 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 Bile reflux gastritis Other specified gastritis without mention of hemorrhage Bilateral leg edema Edema Muscle spasms of neck Benign prostatic hyperplasia with urinary obstruction Essential hypertension Unspecified essential hypertension Chronic superficial gastritis without bleeding History of breast cancer in male Acute rhinitis- Primary Acute nasopharyngitis (common cold) 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) Transition of care Chronic hip pain, right- Primary Vitamin D deficiency Paresthesia of foot, bilateral Pain in right testicle Unspecified disorder of male genital organs Epididymitis Unspecified orchitis and epididymitis Dysuria Presence of stent in coronary artery in patient with coronary artery disease Essential hypertension Unspecified essential hypertension 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) Obesity, morbid (HCC) Morbid obesity Capillary leak syndrome Mixed hyperlipidemia Prediabetes- Primary Other abnormal glucose CVD (cardiovascular disease) Unspecified cardiovascular disease Obesity, morbid (HCC) Morbid obesity 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) Muscle spasms of neck Macrocytic anemia Prediabetes- Primary Other abnormal glucose Obesity, morbid (HCC) Morbid obesity 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) Essential hypertension Unspecified essential hypertension Mixed hyperlipidemia Capillary leak syndrome History of breast cancer in male Cat bite of finger, initial encounter Abnormal mammogram Abnormal mammogram, unspecified documented [facility]* Diagnosis Pre-operative examination- Primary Preoperative examination, unspecified Primary osteoarthritis of right knee Primary localized osteoarthrosis, lower leg Essential hypertension Unspecified essential hypertension Mixed hyperlipidemia Patent foramen ovale (HCC) Ostium secundum type atrial septal defect 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 Cheung's esophagus Malignant neoplasm of right male breast, unspecified estrogen receptor status, unspecified site of breast ([facility]) Class 2 obesity due to excess calories with body mass index (BMI) of 35.0 to 35.9 in adult, unspecified whether serious comorbidity present Preoperative examination- Primary Preoperative examination, unspecified Primary osteoarthritis of left knee Primary localized osteoarthrosis, lower leg Prediabetes Other abnormal glucose Patent foramen ovale (HCC) Ostium secundum type atrial septal defect Heart murmur Undiagnosed cardiac murmurs Mixed hyperlipidemia Essential hypertension Unspecified essential hypertension 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 Cheung's esophagus Benign prostatic hyperplasia without lower urinary tract symptoms Anemia, unspecified type Malignant neoplasm of right male breast, unspecified estrogen receptor status, unspecified site of breast (HCC) Bilateral leg edema Edema Class 2 obesity due to excess calories with body mass index (BMI) of 35.0 to 35.9 in adult, unspecified whether serious comorbidity present S/P total knee replacement, left [facility] Diagnosis 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 Bile reflux gastritis Other specified gastritis without mention of hemorrhage Bilateral leg edema Edema Muscle spasms of neck Benign prostatic hyperplasia with urinary obstruction Essential hypertension Unspecified essential hypertension Chronic superficial gastritis without bleeding History of breast cancer in male Acute rhinitis- Primary Acute nasopharyngitis (common cold) 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) Transition of care Chronic hip pain, right- Primary Vitamin D deficiency Paresthesia of foot, bilateral Pain in right testicle Unspecified disorder of male genital organs Epididymitis Unspecified orchitis and epididymitis Dysuria Presence of stent in coronary artery in patient with coronary artery disease Essential hypertension Unspecified essential hypertension 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) Obesity, morbid (HCC) Morbid obesity Capillary leak syndrome Mixed hyperlipidemia Prediabetes- Primary Other abnormal glucose CVD (cardiovascular disease) Unspecified cardiovascular disease Obesity, morbid (HCC) Morbid obesity 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) Muscle spasms of neck Macrocytic anemia Encounter for screening mammogram for malignant neoplasm of breast- Primary Encounter for screening mammogram for malignant neoplasm of breast Prediabetes- Primary Other abnormal glucose Obesity, morbid (HCC) Morbid obesity 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) Essential hypertension Unspecified essential hypertension Mixed hyperlipidemia Capillary leak syndrome History of breast cancer in male Cat bite of finger, initial encounter Abnormal mammogram Abnormal mammogram, unspecified [facility] Diagnosis 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 Bile reflux gastritis Other specified gastritis without mention of hemorrhage Bilateral leg edema Edema Muscle spasms of neck Benign prostatic hyperplasia with urinary obstruction Essential hypertension Unspecified essential hypertension Chronic superficial gastritis without bleeding History of breast cancer in male Acute rhinitis- Primary Acute nasopharyngitis (common cold) 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) Transition of care Chronic hip pain, right- Primary Vitamin D deficiency Paresthesia of foot, bilateral Pain in right testicle Unspecified disorder of male genital organs Epididymitis Unspecified orchitis and epididymitis Dysuria Presence of stent in coronary artery in patient with coronary artery disease Essential hypertension Unspecified essential hypertension 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) Obesity, morbid (HCC) Morbid obesity Capillary leak syndrome Mixed hyperlipidemia Prediabetes- Primary Other abnormal glucose CVD (cardiovascular disease) Unspecified cardiovascular disease Obesity, morbid (HCC) Morbid obesity 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) Muscle spasms of neck Macrocytic anemia Encounter for screening mammogram for malignant neoplasm of breast- Primary Prediabetes- Primary Other abnormal glucose Obesity, morbid (HCC) Morbid obesity 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) Essential hypertension Unspecified essential hypertension Mixed hyperlipidemia Capillary leak syndrome History of breast cancer in male Cat bite of finger, initial encounter Abnormal mammogram Abnormal mammogram, unspecified [facility] Diagnosis 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 Bile reflux gastritis Other specified gastritis without mention of hemorrhage Bilateral leg edema Edema Muscle spasms of neck Benign prostatic hyperplasia with urinary obstruction Essential hypertension Unspecified essential hypertension Chronic superficial gastritis without bleeding History of breast cancer in male Acute rhinitis- Primary Acute nasopharyngitis (common cold) 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) Transition of care Chronic hip pain, right- Primary Vitamin D deficiency Paresthesia of foot, bilateral Pain in right testicle Unspecified disorder of male genital organs Epididymitis Unspecified orchitis and epididymitis Dysuria Presence of stent in coronary artery in patient with coronary artery disease Essential hypertension Unspecified essential hypertension 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) Obesity, morbid (HCC) Morbid obesity Capillary leak syndrome Mixed hyperlipidemia Prediabetes- Primary Other abnormal glucose CVD (cardiovascular disease) Unspecified cardiovascular disease Obesity, morbid (HCC) Morbid obesity 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) Muscle spasms of neck Macrocytic anemia Prediabetes- Primary Other abnormal glucose Obesity, morbid (HCC) Morbid obesity 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) Essential hypertension Unspecified essential hypertension Mixed hyperlipidemia Capillary leak syndrome History of breast cancer in male Cat bite of finger, initial encounter Abnormal mammogram Abnormal mammogram, unspecified Lumbar back pain with radiculopathy affecting left lower extremity- Primary Essential hypertension Unspecified essential hypertension Primary osteoarthritis of right hip 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) Obesity, morbid (HCC) Morbid obesity History of breast cancer in male Capillary leak syndrome [facility] Diagnosis 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 Bile reflux gastritis Other specified gastritis without mention of hemorrhage Bilateral leg edema Edema Muscle spasms of neck Benign prostatic hyperplasia with urinary obstruction Essential hypertension Unspecified essential hypertension Chronic superficial gastritis without bleeding History of breast cancer in male Acute rhinitis- Primary Acute nasopharyngitis (common cold) 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) Transition of care Chronic hip pain, right- Primary Vitamin D deficiency Paresthesia of foot, bilateral Pain in right testicle Unspecified disorder of male genital organs Epididymitis Unspecified orchitis and epididymitis Dysuria Presence of stent in coronary artery in patient with coronary artery disease Essential hypertension Unspecified essential hypertension 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) Obesity, morbid (HCC) Morbid obesity Capillary leak syndrome Mixed hyperlipidemia Prediabetes- Primary Other abnormal glucose CVD (cardiovascular disease) Unspecified cardiovascular disease Obesity, morbid (HCC) Morbid obesity 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) Muscle spasms of neck Macrocytic anemia Prediabetes- Primary Other abnormal glucose Obesity, morbid (HCC) Morbid obesity 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) Essential hypertension Unspecified essential hypertension Mixed hyperlipidemia Capillary leak syndrome History of breast cancer in male Cat bite of finger, initial encounter Abnormal mammogram Abnormal mammogram, unspecified Lumbar back pain with radiculopathy affecting left lower extremity- Primary Essential hypertension Unspecified essential hypertension Primary osteoarthritis of right hip 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) Obesity, morbid (HCC) Morbid obesity History of breast cancer in male Capillary leak syndrome Lumbar back pain with radiculopathy affecting left lower extremity [facility] Diagnosis 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 Bile reflux gastritis Other specified gastritis without mention of hemorrhage Bilateral leg edema Edema Muscle spasms of neck Benign prostatic hyperplasia with urinary obstruction Essential hypertension Unspecified essential hypertension Chronic superficial gastritis without bleeding History of breast cancer in male Acute rhinitis- Primary Acute nasopharyngitis (common cold) 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) Transition of care Chronic hip pain, right- Primary Vitamin D deficiency Paresthesia of foot, bilateral Pain in right testicle Unspecified disorder of male genital organs Epididymitis Unspecified orchitis and epididymitis Dysuria Presence of stent in coronary artery in patient with coronary artery disease Essential hypertension Unspecified essential hypertension 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) Obesity, morbid (HCC) Morbid obesity Capillary leak syndrome Mixed hyperlipidemia Prediabetes- Primary Other abnormal glucose CVD (cardiovascular disease) Unspecified cardiovascular disease Obesity, morbid (HCC) Morbid obesity 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) Muscle spasms of neck Macrocytic anemia Prediabetes- Primary Other abnormal glucose Obesity, morbid (HCC) Morbid obesity 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) Essential hypertension Unspecified essential hypertension Mixed hyperlipidemia Capillary leak syndrome History of breast cancer in male Cat bite of finger, initial encounter Abnormal mammogram Abnormal mammogram, unspecified Lumbar back pain with radiculopathy affecting left lower extremity- Primary Essential hypertension Unspecified essential hypertension Primary osteoarthritis of right hip 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) Obesity, morbid (HCC) Morbid obesity History of breast cancer in male Capillary leak syndrome Lumbar back pain with radiculopathy affecting left lower extremity [facility] Diagnosis Pre-operative examination- Primary Preoperative examination, unspecified Primary osteoarthritis of right knee Primary localized osteoarthrosis, lower leg Essential hypertension Unspecified essential hypertension Mixed hyperlipidemia Patent foramen ovale (HCC) Ostium secundum type atrial septal defect 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 Cheung's esophagus Malignant neoplasm of right male breast, unspecified estrogen receptor status, unspecified site of breast (HCC) Class 2 obesity due to excess calories with body mass index (BMI) of 35.0 to 35.9 in adult, unspecified whether serious comorbidity present Preoperative examination- Primary Preoperative examination, unspecified Primary osteoarthritis of left knee Primary localized osteoarthrosis, lower leg Prediabetes Other abnormal glucose Patent foramen ovale (HCC) Ostium secundum type atrial septal defect Heart murmur Undiagnosed cardiac murmurs Mixed hyperlipidemia Essential hypertension Unspecified essential hypertension 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 Cheung's esophagus Benign prostatic hyperplasia without lower urinary tract symptoms Anemia, unspecified type Malignant neoplasm of right male breast, unspecified estrogen receptor status, unspecified site of breast (HCC) Bilateral leg edema Edema Class 2 obesity due to excess calories with body mass index (BMI) of 35.0 to 35.9 in adult, unspecified whether serious comorbidity present Pain- Primary Generalized pain documented in this encounter [facility] note* Diagnosis 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 Bile reflux gastritis Other specified gastritis without mention of hemorrhage Bilateral leg edema Edema Muscle spasms of neck Benign prostatic hyperplasia with urinary obstruction Essential hypertension Unspecified essential hypertension Chronic superficial gastritis without bleeding History of breast cancer in male Acute rhinitis- Primary Acute nasopharyngitis (common cold) 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) Transition of care Chronic hip pain, right- Primary Vitamin D deficiency Paresthesia of foot, bilateral Pain in right testicle Unspecified disorder of male genital organs Epididymitis Unspecified orchitis and epididymitis Dysuria Presence of stent in coronary artery in patient with coronary artery disease Essential hypertension Unspecified essential hypertension 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) Obesity, morbid (HCC) Morbid obesity Capillary leak syndrome Mixed hyperlipidemia Prediabetes- Primary Other abnormal glucose CVD (cardiovascular disease) Unspecified cardiovascular disease Obesity, morbid (HCC) Morbid obesity 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) Muscle spasms of neck Macrocytic anemia Prediabetes- Primary Other abnormal glucose Obesity, morbid (HCC) Morbid obesity 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) Essential hypertension Unspecified essential hypertension Mixed hyperlipidemia Capillary leak syndrome History of breast cancer in male Cat bite of finger, initial encounter Abnormal mammogram Abnormal mammogram, unspecified Lumbar back pain with radiculopathy affecting left lower extremity- Primary Essential hypertension Unspecified essential hypertension Primary osteoarthritis of right hip 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) Obesity, morbid (HCC) Morbid obesity History of breast cancer in male Capillary leak syndrome Lumbar back pain with radiculopathy affecting left lower extremity Primary osteoarthritis of right hip [facility] Diagnosis 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 Bile reflux gastritis Other specified gastritis without mention of hemorrhage Bilateral leg edema Edema Muscle spasms of neck Benign prostatic hyperplasia with urinary obstruction Essential hypertension Unspecified essential hypertension Chronic superficial gastritis without bleeding History of breast cancer in male Acute rhinitis- Primary Acute nasopharyngitis (common cold) 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) Transition of care Chronic hip pain, right- Primary Vitamin D deficiency Paresthesia of foot, bilateral Pain in right testicle Unspecified disorder of male genital organs Epididymitis Unspecified orchitis and epididymitis Dysuria Presence of stent in coronary artery in patient with coronary artery disease Essential hypertension Unspecified essential hypertension 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) Obesity, morbid (HCC) Morbid obesity Capillary leak syndrome Mixed hyperlipidemia Prediabetes- Primary Other abnormal glucose CVD (cardiovascular disease) Unspecified cardiovascular disease Obesity, morbid (HCC) Morbid obesity 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) Muscle spasms of neck Macrocytic anemia Prediabetes- Primary Other abnormal glucose Obesity, morbid (HCC) Morbid obesity 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) Essential hypertension Unspecified essential hypertension Mixed hyperlipidemia Capillary leak syndrome History of breast cancer in male Cat bite of finger, initial encounter Abnormal mammogram Abnormal mammogram, unspecified Lumbar back pain with radiculopathy affecting left lower extremity- Primary Essential hypertension Unspecified essential hypertension Primary osteoarthritis of right hip 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) Obesity, morbid (HCC) Morbid obesity History of breast cancer in male Capillary leak syndrome Lumbar back pain with radiculopathy affecting left lower extremity- Primary [facility] Diagnosis 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 Bile reflux gastritis Other specified gastritis without mention of hemorrhage Bilateral leg edema Edema Muscle spasms of neck Benign prostatic hyperplasia with urinary obstruction Essential hypertension Unspecified essential hypertension Chronic superficial gastritis without bleeding History of breast cancer in male Acute rhinitis- Primary Acute nasopharyngitis (common cold) 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) Transition of care Chronic hip pain, right- Primary Vitamin D deficiency Paresthesia of foot, bilateral Pain in right testicle Unspecified disorder of male genital organs Epididymitis Unspecified orchitis and epididymitis Dysuria Presence of stent in coronary artery in patient with coronary artery disease Essential hypertension Unspecified essential hypertension 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) Obesity, morbid (HCC) Morbid obesity Capillary leak syndrome Mixed hyperlipidemia Prediabetes- Primary Other abnormal glucose CVD (cardiovascular disease) Unspecified cardiovascular disease Obesity, morbid (HCC) Morbid obesity 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) Muscle spasms of neck Macrocytic anemia Prediabetes- Primary Other abnormal glucose Obesity, morbid (HCC) Morbid obesity 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) Essential hypertension Unspecified essential hypertension Mixed hyperlipidemia Capillary leak syndrome History of breast cancer in male Cat bite of finger, initial encounter Abnormal mammogram Abnormal mammogram, unspecified Lumbar back pain with radiculopathy affecting left lower extremity- Primary Essential hypertension Unspecified essential hypertension Primary osteoarthritis of right hip 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) Obesity, morbid (HCC) Morbid obesity History of breast cancer in male Capillary leak syndrome Lumbar back pain with radiculopathy affecting left lower extremity- Primary Primary osteoarthritis of right hip [facility] Diagnosis 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 Bile reflux gastritis Other specified gastritis without mention of hemorrhage Bilateral leg edema Edema Muscle spasms of neck Benign prostatic hyperplasia with urinary obstruction Essential hypertension Unspecified essential hypertension Chronic superficial gastritis without bleeding History of breast cancer in male Acute rhinitis- Primary Acute nasopharyngitis (common cold) 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) Transition of care Chronic hip pain, right- Primary Vitamin D deficiency Paresthesia of foot, bilateral Pain in right testicle Unspecified disorder of male genital organs Epididymitis Unspecified orchitis and epididymitis Dysuria Presence of stent in coronary artery in patient with coronary artery disease Essential hypertension Unspecified essential hypertension 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) Obesity, morbid (HCC) Morbid obesity Capillary leak syndrome Mixed hyperlipidemia Prediabetes- Primary Other abnormal glucose CVD (cardiovascular disease) Unspecified cardiovascular disease Obesity, morbid (HCC) Morbid obesity 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) Muscle spasms of neck Macrocytic anemia Prediabetes- Primary Other abnormal glucose Obesity, morbid (HCC) Morbid obesity 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) Essential hypertension Unspecified essential hypertension Mixed hyperlipidemia Capillary leak syndrome History of breast cancer in male Cat bite of finger, initial encounter Abnormal mammogram Abnormal mammogram, unspecified Lumbar back pain with radiculopathy affecting left lower extremity- Primary Essential hypertension Unspecified essential hypertension Primary osteoarthritis of right hip 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) Obesity, morbid (HCC) Morbid obesity History of breast cancer in male Capillary leak syndrome Lumbar back pain with radiculopathy affecting left lower extremity- Primary Primary osteoarthritis of right hip [facility] Diagnosis Pre-operative examination- Primary Preoperative examination, unspecified Primary osteoarthritis of right knee Primary localized osteoarthrosis, lower leg Essential hypertension Unspecified essential hypertension Mixed hyperlipidemia Patent foramen ovale (HCC) Ostium secundum type atrial septal defect 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 Cheung's esophagus Malignant neoplasm of right male breast, unspecified estrogen receptor status, unspecified site of breast (HCC) Class 2 obesity due to excess calories with body mass index (BMI) of 35.0 to 35.9 in adult, unspecified whether serious comorbidity present Preoperative examination- Primary Preoperative examination, unspecified Primary osteoarthritis of left knee Primary localized osteoarthrosis, lower leg Prediabetes Other abnormal glucose Patent foramen ovale (HCC) Ostium secundum type atrial septal defect Heart murmur Undiagnosed cardiac murmurs Mixed hyperlipidemia Essential hypertension Unspecified essential hypertension 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 Cheung's esophagus Benign prostatic hyperplasia without lower urinary tract symptoms Anemia, unspecified type Malignant neoplasm of right male breast, unspecified estrogen receptor status, unspecified site of breast (HCC) Bilateral leg edema Edema Class 2 obesity due to excess calories with body mass index (BMI) of 35.0 to 35.9 in adult, unspecified whether serious comorbidity present Primary osteoarthritis of right hip- Primary Primary localized osteoarthrosis, pelvic region and thigh Primary osteoarthritis of left hip Primary localized osteoarthrosis, pelvic region and thigh [facility] Diagnosis Pre-operative examination- Primary Preoperative examination, unspecified Primary osteoarthritis of right knee Primary localized osteoarthrosis, lower leg Essential hypertension Unspecified essential hypertension Mixed hyperlipidemia Patent foramen ovale (HCC) Ostium secundum type atrial septal defect 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 Cheung's esophagus Malignant neoplasm of right male breast, unspecified estrogen receptor status, unspecified site of breast (HCC) Class 2 obesity due to excess calories with body mass index (BMI) of 35.0 to 35.9 in adult, unspecified whether serious comorbidity present Preoperative examination- Primary Preoperative examination, unspecified Primary osteoarthritis of left knee Primary localized osteoarthrosis, lower leg Prediabetes Other abnormal glucose Patent foramen ovale (HCC) Ostium secundum type atrial septal defect Heart murmur Undiagnosed cardiac murmurs Mixed hyperlipidemia Essential hypertension Unspecified essential hypertension 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 Cheung's esophagus Benign prostatic hyperplasia without lower urinary tract symptoms Anemia, unspecified type Malignant neoplasm of right male breast, unspecified estrogen receptor status, unspecified site of breast (HCC) Bilateral leg edema Edema Class 2 obesity due to excess calories with body mass index (BMI) of 35.0 to 35.9 in adult, unspecified whether serious comorbidity present Pain [facility] 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 Bile reflux gastritis Other specified gastritis without mention of hemorrhage Bilateral leg edema Edema Muscle spasms of neck Benign prostatic hyperplasia with urinary obstruction Essential hypertension Unspecified essential hypertension Chronic superficial gastritis without bleeding History of breast cancer in male Acute rhinitis- Primary Acute nasopharyngitis (common cold) 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) Transition of care Chronic hip pain, right- Primary Vitamin D deficiency Paresthesia of foot, bilateral Pain in right testicle Unspecified disorder of male genital organs Epididymitis Unspecified orchitis and epididymitis Dysuria Presence of stent in coronary artery in patient with coronary artery disease Essential hypertension Unspecified essential hypertension 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) Obesity, morbid (HCC) Morbid obesity Capillary leak syndrome Mixed hyperlipidemia Prediabetes- Primary Other abnormal glucose CVD (cardiovascular disease) Unspecified cardiovascular disease Obesity, morbid (HCC) Morbid obesity 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) Muscle spasms of neck Macrocytic anemia Prediabetes- Primary Other abnormal glucose Obesity, morbid (HCC) Morbid obesity 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) Essential hypertension Unspecified essential hypertension Mixed hyperlipidemia Capillary leak syndrome History of breast cancer in male Cat bite of finger, initial encounter Abnormal mammogram Abnormal mammogram, unspecified Lumbar back pain with radiculopathy affecting left lower extremity- Primary Essential hypertension Unspecified essential hypertension Primary osteoarthritis of right hip 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) Obesity, morbid (HCC) Morbid obesity History of breast cancer in male Capillary leak syndrome Lumbar back pain with radiculopathy affecting left lower extremity- Primary Primary osteoarthritis of right hip [facility] Diagnosis 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 Bile reflux gastritis Other specified gastritis without mention of hemorrhage Bilateral leg edema Edema Muscle spasms of neck Benign prostatic hyperplasia with urinary obstruction Essential hypertension Unspecified essential hypertension Chronic superficial gastritis without bleeding History of breast cancer in male Acute rhinitis- Primary Acute nasopharyngitis (common cold) 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) Transition of care Chronic hip pain, right- Primary Vitamin D deficiency Paresthesia of foot, bilateral Pain in right testicle Unspecified disorder of male genital organs Epididymitis Unspecified orchitis and epididymitis Dysuria Presence of stent in coronary artery in patient with coronary artery disease Essential hypertension Unspecified essential hypertension 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) Obesity, morbid (HCC) Morbid obesity Capillary leak syndrome Mixed hyperlipidemia Prediabetes- Primary Other abnormal glucose CVD (cardiovascular disease) Unspecified cardiovascular disease Obesity, morbid (HCC) Morbid obesity 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) Muscle spasms of neck Macrocytic anemia Prediabetes- Primary Other abnormal glucose Obesity, morbid (HCC) Morbid obesity 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) Essential hypertension Unspecified essential hypertension Mixed hyperlipidemia Capillary leak syndrome History of breast cancer in male Cat bite of finger, initial encounter Abnormal mammogram Abnormal mammogram, unspecified Lumbar back pain with radiculopathy affecting left lower extremity- Primary Essential hypertension Unspecified essential hypertension Primary osteoarthritis of right hip 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) Obesity, morbid (HCC) Morbid obesity History of breast cancer in male Capillary leak syndrome Incidental lung nodule, > 3mm and < 8mm- Primary Other diseases of lung, not elsewhere classified 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) Capillary leak syndrome Lumbar back pain with radiculopathy affecting left lower extremity Essential hypertension Unspecified essential hypertension 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 Obesity, morbid (HCC) Morbid obesity Prediabetes Other abnormal glucose [facility] Diagnosis 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 Bile reflux gastritis Other specified gastritis without mention of hemorrhage Bilateral leg edema Edema Muscle spasms of neck Benign prostatic hyperplasia with urinary obstruction Essential hypertension Unspecified essential hypertension Chronic superficial gastritis without bleeding History of breast cancer in male Acute rhinitis- Primary Acute nasopharyngitis (common cold) 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) Transition of care Chronic hip pain, right- Primary Vitamin D deficiency Paresthesia of foot, bilateral Pain in right testicle Unspecified disorder of male genital organs Epididymitis Unspecified orchitis and epididymitis Dysuria Presence of stent in coronary artery in patient with coronary artery disease Essential hypertension Unspecified essential hypertension 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) Obesity, morbid (HCC) Morbid obesity Capillary leak syndrome Mixed hyperlipidemia Prediabetes- Primary Other abnormal glucose CVD (cardiovascular disease) Unspecified cardiovascular disease Obesity, morbid (HCC) Morbid obesity 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) Muscle spasms of neck Macrocytic anemia Prediabetes- Primary Other abnormal glucose Obesity, morbid (HCC) Morbid obesity 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) Essential hypertension Unspecified essential hypertension Mixed hyperlipidemia Capillary leak syndrome History of breast cancer in male Cat bite of finger, initial encounter Abnormal mammogram Abnormal mammogram, unspecified Lumbar back pain with radiculopathy affecting left lower extremity- Primary Essential hypertension Unspecified essential hypertension Primary osteoarthritis of right hip 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) Obesity, morbid (HCC) Morbid obesity History of breast cancer in male Capillary leak syndrome Incidental lung nodule, > 3mm and < 8mm- Primary Other diseases of lung, not elsewhere classified 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) Capillary leak syndrome Lumbar back pain with radiculopathy affecting left lower extremity Essential hypertension Unspecified essential hypertension 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 Obesity, morbid (HCC) Morbid obesity Prediabetes Other abnormal glucose [facility] Diagnosis 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 Bile reflux gastritis Other specified gastritis without mention of hemorrhage Bilateral leg edema Edema Muscle spasms of neck Benign prostatic hyperplasia with urinary obstruction Essential hypertension Unspecified essential hypertension Chronic superficial gastritis without bleeding History of breast cancer in male Acute rhinitis- Primary Acute nasopharyngitis (common cold) 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) Transition of care Chronic hip pain, right- Primary Vitamin D deficiency Paresthesia of foot, bilateral Pain in right testicle Unspecified disorder of male genital organs Epididymitis Unspecified orchitis and epididymitis Dysuria Presence of stent in coronary artery in patient with coronary artery disease Essential hypertension Unspecified essential hypertension 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) Obesity, morbid (HCC) Morbid obesity Capillary leak syndrome Mixed hyperlipidemia Prediabetes- Primary Other abnormal glucose CVD (cardiovascular disease) Unspecified cardiovascular disease Obesity, morbid (HCC) Morbid obesity 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) Muscle spasms of neck Macrocytic anemia Prediabetes- Primary Other abnormal glucose Obesity, morbid (HCC) Morbid obesity 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) Essential hypertension Unspecified essential hypertension Mixed hyperlipidemia Capillary leak syndrome History of breast cancer in male Cat bite of finger, initial encounter Abnormal mammogram Abnormal mammogram, unspecified Lumbar back pain with radiculopathy affecting left lower extremity- Primary Essential hypertension Unspecified essential hypertension Primary osteoarthritis of right hip 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) Obesity, morbid (HCC) Morbid obesity History of breast cancer in male Capillary leak syndrome Incidental lung nodule, > 3mm and < 8mm- Primary Other diseases of lung, not elsewhere classified 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) Capillary leak syndrome Lumbar back pain with radiculopathy affecting left lower extremity Essential hypertension Unspecified essential hypertension 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 Obesity, morbid (HCC) Morbid obesity Prediabetes Other abnormal glucose Lumbar back pain with radiculopathy affecting left lower extremity- Primary Primary osteoarthritis of right hip [facility] Diagnosis 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 Bile reflux gastritis Other specified gastritis without mention of hemorrhage Bilateral leg edema Edema Muscle spasms of neck Benign prostatic hyperplasia with urinary obstruction Essential hypertension Unspecified essential hypertension Chronic superficial gastritis without bleeding History of breast cancer in male Acute rhinitis- Primary Acute nasopharyngitis (common cold) 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) Transition of care Chronic hip pain, right- Primary Vitamin D deficiency Paresthesia of foot, bilateral Pain in right testicle Unspecified disorder of male genital organs Epididymitis Unspecified orchitis and epididymitis Dysuria Presence of stent in coronary artery in patient with coronary artery disease Essential hypertension Unspecified essential hypertension 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) Obesity, morbid (HCC) Morbid obesity Capillary leak syndrome Mixed hyperlipidemia Prediabetes- Primary Other abnormal glucose CVD (cardiovascular disease) Unspecified cardiovascular disease Obesity, morbid (HCC) Morbid obesity 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) Muscle spasms of neck Macrocytic anemia Prediabetes- Primary Other abnormal glucose Obesity, morbid (HCC) Morbid obesity 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) Essential hypertension Unspecified essential hypertension Mixed hyperlipidemia Capillary leak syndrome History of breast cancer in male Cat bite of finger, initial encounter Abnormal mammogram Abnormal mammogram, unspecified Lumbar back pain with radiculopathy affecting left lower extremity- Primary Essential hypertension Unspecified essential hypertension Primary osteoarthritis of right hip 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) Obesity, morbid (HCC) Morbid obesity History of breast cancer in male Capillary leak syndrome Incidental lung nodule, > 3mm and < 8mm- Primary Other diseases of lung, not elsewhere classified 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) Capillary leak syndrome Lumbar back pain with radiculopathy affecting left lower extremity Essential hypertension Unspecified essential hypertension 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 Obesity, morbid (HCC) Morbid obesity Prediabetes Other abnormal glucose Lumbar back pain with radiculopathy affecting left lower extremity- Primary Primary osteoarthritis of right hip [facility] Diagnosis 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 Bile reflux gastritis Other specified gastritis without mention of hemorrhage Bilateral leg edema Edema Muscle spasms of neck Benign prostatic hyperplasia with urinary obstruction Essential hypertension Unspecified essential hypertension Chronic superficial gastritis without bleeding History of breast cancer in male Acute rhinitis- Primary Acute nasopharyngitis (common cold) 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) Transition of care Chronic hip pain, right- Primary Vitamin D deficiency Paresthesia of foot, bilateral Pain in right testicle Unspecified disorder of male genital organs Epididymitis Unspecified orchitis and epididymitis Dysuria Presence of stent in coronary artery in patient with coronary artery disease Essential hypertension Unspecified essential hypertension 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) Obesity, morbid (HCC) Morbid obesity Capillary leak syndrome Mixed hyperlipidemia Prediabetes- Primary Other abnormal glucose CVD (cardiovascular disease) Unspecified cardiovascular disease Obesity, morbid (HCC) Morbid obesity 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) Muscle spasms of neck Macrocytic anemia Prediabetes- Primary Other abnormal glucose Obesity, morbid (HCC) Morbid obesity 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) Essential hypertension Unspecified essential hypertension Mixed hyperlipidemia Capillary leak syndrome History of breast cancer in male Cat bite of finger, initial encounter Abnormal mammogram Abnormal mammogram, unspecified Lumbar back pain with radiculopathy affecting left lower extremity- Primary Essential hypertension Unspecified essential hypertension Primary osteoarthritis of right hip 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) Obesity, morbid (HCC) Morbid obesity History of breast cancer in male Capillary leak syndrome Incidental lung nodule, > 3mm and < 8mm- Primary Other diseases of lung, not elsewhere classified 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) Capillary leak syndrome Lumbar back pain with radiculopathy affecting left lower extremity Essential hypertension Unspecified essential hypertension 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 Obesity, morbid (HCC) Morbid obesity Prediabetes Other abnormal glucose Lumbar back pain with radiculopathy affecting left lower extremity- Primary [facility] Diagnosis 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 Bile reflux gastritis Other specified gastritis without mention of hemorrhage Bilateral leg edema Edema Muscle spasms of neck Benign prostatic hyperplasia with urinary obstruction Essential hypertension Unspecified essential hypertension Chronic superficial gastritis without bleeding History of breast cancer in male Acute rhinitis- Primary Acute nasopharyngitis (common cold) 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) Transition of care Chronic hip pain, right- Primary Vitamin D deficiency Paresthesia of foot, bilateral Pain in right testicle Unspecified disorder of male genital organs Epididymitis Unspecified orchitis and epididymitis Dysuria Presence of stent in coronary artery in patient with coronary artery disease Essential hypertension Unspecified essential hypertension 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) Obesity, morbid (HCC) Morbid obesity Capillary leak syndrome Mixed hyperlipidemia Prediabetes- Primary Other abnormal glucose CVD (cardiovascular disease) Unspecified cardiovascular disease Obesity, morbid (HCC) Morbid obesity 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) Muscle spasms of neck Macrocytic anemia Prediabetes- Primary Other abnormal glucose Obesity, morbid (HCC) Morbid obesity 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) Essential hypertension Unspecified essential hypertension Mixed hyperlipidemia Capillary leak syndrome History of breast cancer in male Cat bite of finger, initial encounter Abnormal mammogram Abnormal mammogram, unspecified Lumbar back pain with radiculopathy affecting left lower extremity- Primary Essential hypertension Unspecified essential hypertension Primary osteoarthritis of right hip 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) Obesity, morbid (HCC) Morbid obesity History of breast cancer in male Capillary leak syndrome Incidental lung nodule, > 3mm and < 8mm- Primary Other diseases of lung, not elsewhere classified 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) Capillary leak syndrome Lumbar back pain with radiculopathy affecting left lower extremity Essential hypertension Unspecified essential hypertension 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 Obesity, morbid (HCC) Morbid obesity Prediabetes Other abnormal glucose Pain, dental- Primary [facility] Diagnosis 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 Bile reflux gastritis Other specified gastritis without mention of hemorrhage Bilateral leg edema Edema Muscle spasms of neck Benign prostatic hyperplasia with urinary obstruction Essential hypertension Unspecified essential hypertension Chronic superficial gastritis without bleeding History of breast cancer in male Acute rhinitis- Primary Acute nasopharyngitis (common cold) 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) Transition of care Chronic hip pain, right- Primary Vitamin D deficiency Paresthesia of foot, bilateral Pain in right testicle Unspecified disorder of male genital organs Epididymitis Unspecified orchitis and epididymitis Dysuria Presence of stent in coronary artery in patient with coronary artery disease Essential hypertension Unspecified essential hypertension 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) Obesity, morbid (HCC) Morbid obesity Capillary leak syndrome Mixed hyperlipidemia Prediabetes- Primary Other abnormal glucose CVD (cardiovascular disease) Unspecified cardiovascular disease Obesity, morbid (HCC) Morbid obesity 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) Muscle spasms of neck Macrocytic anemia Prediabetes- Primary Other abnormal glucose Obesity, morbid (HCC) Morbid obesity 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) Essential hypertension Unspecified essential hypertension Mixed hyperlipidemia Capillary leak syndrome History of breast cancer in male Cat bite of finger, initial encounter Abnormal mammogram Abnormal mammogram, unspecified Lumbar back pain with radiculopathy affecting left lower extremity- Primary Essential hypertension Unspecified essential hypertension Primary osteoarthritis of right hip 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) Obesity, morbid (HCC) Morbid obesity History of breast cancer in male Capillary leak syndrome Incidental lung nodule, > 3mm and < 8mm- Primary Other diseases of lung, not elsewhere classified 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) Capillary leak syndrome Lumbar back pain with radiculopathy affecting left lower extremity Essential hypertension Unspecified essential hypertension 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 Obesity, morbid (HCC) Morbid obesity Prediabetes Other abnormal glucose Lumbar back pain with radiculopathy affecting left lower extremity- Primary Primary osteoarthritis of right hip [facility] Diagnosis 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 Bile reflux gastritis Other specified gastritis without mention of hemorrhage Bilateral leg edema Edema Muscle spasms of neck Benign prostatic hyperplasia with urinary obstruction Essential hypertension Unspecified essential hypertension Chronic superficial gastritis without bleeding History of breast cancer in male Acute rhinitis- Primary Acute nasopharyngitis (common cold) 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) Transition of care Chronic hip pain, right- Primary Vitamin D deficiency Paresthesia of foot, bilateral Pain in right testicle Unspecified disorder of male genital organs Epididymitis Unspecified orchitis and epididymitis Dysuria Presence of stent in coronary artery in patient with coronary artery disease Essential hypertension Unspecified essential hypertension 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) Obesity, morbid (HCC) Morbid obesity Capillary leak syndrome Mixed hyperlipidemia Prediabetes- Primary Other abnormal glucose CVD (cardiovascular disease) Unspecified cardiovascular disease Obesity, morbid (HCC) Morbid obesity 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) Muscle spasms of neck Macrocytic anemia Prediabetes- Primary Other abnormal glucose Obesity, morbid (HCC) Morbid obesity 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) Essential hypertension Unspecified essential hypertension Mixed hyperlipidemia Capillary leak syndrome History of breast cancer in male Cat bite of finger, initial encounter Abnormal mammogram Abnormal mammogram, unspecified Lumbar back pain with radiculopathy affecting left lower extremity- Primary Essential hypertension Unspecified essential hypertension Primary osteoarthritis of right hip 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) Obesity, morbid (HCC) Morbid obesity History of breast cancer in male Capillary leak syndrome Incidental lung nodule, > 3mm and < 8mm- Primary Other diseases of lung, not elsewhere classified 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) Capillary leak syndrome Lumbar back pain with radiculopathy affecting left lower extremity Essential hypertension Unspecified essential hypertension 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 Obesity, morbid (HCC) Morbid obesity Prediabetes Other abnormal glucose Lumbar back pain with radiculopathy affecting left lower extremity- Primary Primary osteoarthritis of right hip documented [facility] Diagnosis 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 Bile reflux gastritis Other specified gastritis without mention of hemorrhage Bilateral leg edema Edema Muscle spasms of neck Benign prostatic hyperplasia with urinary obstruction Essential hypertension Unspecified essential hypertension Chronic superficial gastritis without bleeding History of breast cancer in male Acute rhinitis- Primary Acute nasopharyngitis (common cold) 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) Transition of care Chronic hip pain, right- Primary Vitamin D deficiency Paresthesia of foot, bilateral Pain in right testicle Unspecified disorder of male genital organs Epididymitis Unspecified orchitis and epididymitis Dysuria Presence of stent in coronary artery in patient with coronary artery disease Essential hypertension Unspecified essential hypertension 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) Obesity, morbid (HCC) Morbid obesity Capillary leak syndrome Mixed hyperlipidemia Prediabetes- Primary Other abnormal glucose CVD (cardiovascular disease) Unspecified cardiovascular disease Obesity, morbid (HCC) Morbid obesity 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) Muscle spasms of neck Macrocytic anemia Prediabetes- Primary Other abnormal glucose Obesity, morbid (HCC) Morbid obesity 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) Essential hypertension Unspecified essential hypertension Mixed hyperlipidemia Capillary leak syndrome History of breast cancer in male Cat bite of finger, initial encounter Abnormal mammogram Abnormal mammogram, unspecified Lumbar back pain with radiculopathy affecting left lower extremity- Primary Essential hypertension Unspecified essential hypertension Primary osteoarthritis of right hip 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) Obesity, morbid (HCC) Morbid obesity History of breast cancer in male Capillary leak syndrome Incidental lung nodule, > 3mm and < 8mm- Primary Other diseases of lung, not elsewhere classified 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) Capillary leak syndrome Lumbar back pain with radiculopathy affecting left lower extremity Essential hypertension Unspecified essential hypertension 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 Obesity, morbid (HCC) Morbid obesity Prediabetes Other abnormal glucose Lumbar back pain with radiculopathy affecting left lower extremity- Primary Primary osteoarthritis of right hip [facility] Diagnosis 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 Bile reflux gastritis Other specified gastritis without mention of hemorrhage Bilateral leg edema Edema Muscle spasms of neck Benign prostatic hyperplasia with urinary obstruction Essential hypertension Unspecified essential hypertension Chronic superficial gastritis without bleeding History of breast cancer in male Acute rhinitis- Primary Acute nasopharyngitis (common cold) 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) Transition of care Chronic hip pain, right- Primary Vitamin D deficiency Paresthesia of foot, bilateral Pain in right testicle Unspecified disorder of male genital organs Epididymitis Unspecified orchitis and epididymitis Dysuria Presence of stent in coronary artery in patient with coronary artery disease Essential hypertension Unspecified essential hypertension 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) Obesity, morbid (HCC) Morbid obesity Capillary leak syndrome Mixed hyperlipidemia Prediabetes- Primary Other abnormal glucose CVD (cardiovascular disease) Unspecified cardiovascular disease Obesity, morbid (HCC) Morbid obesity 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) Muscle spasms of neck Macrocytic anemia Prediabetes- Primary Other abnormal glucose Obesity, morbid (HCC) Morbid obesity 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) Essential hypertension Unspecified essential hypertension Mixed hyperlipidemia Capillary leak syndrome History of breast cancer in male Cat bite of finger, initial encounter Abnormal mammogram Abnormal mammogram, unspecified Lumbar back pain with radiculopathy affecting left lower extremity- Primary Essential hypertension Unspecified essential hypertension Primary osteoarthritis of right hip 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) Obesity, morbid (HCC) Morbid obesity History of breast cancer in male Capillary leak syndrome Incidental lung nodule, > 3mm and < 8mm- Primary Other diseases of lung, not elsewhere classified 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) Capillary leak syndrome Lumbar back pain with radiculopathy affecting left lower extremity Essential hypertension Unspecified essential hypertension 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 Obesity, morbid (HCC) Morbid obesity Prediabetes Other abnormal glucose Lumbar back pain with radiculopathy affecting left lower extremity- Primary Primary osteoarthritis of right hip documented [facility] encounter [facility] Diagnosis 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 Bile reflux gastritis Other specified gastritis without mention of hemorrhage Bilateral leg edema Edema Muscle spasms of neck Benign prostatic hyperplasia with urinary obstruction Essential hypertension Unspecified essential hypertension Chronic superficial gastritis without bleeding History of breast cancer in male Acute rhinitis- Primary Acute nasopharyngitis (common cold) 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) Transition of care Chronic hip pain, right- Primary Vitamin D deficiency Paresthesia of foot, bilateral Pain in right testicle Unspecified disorder of male genital organs Epididymitis Unspecified orchitis and epididymitis Dysuria Presence of stent in coronary artery in patient with coronary artery disease Essential hypertension Unspecified essential hypertension 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) Obesity, morbid (HCC) Morbid obesity Capillary leak syndrome Mixed hyperlipidemia Prediabetes- Primary Other abnormal glucose CVD (cardiovascular disease) Unspecified cardiovascular disease Obesity, morbid (HCC) Morbid obesity 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) Muscle spasms of neck Macrocytic anemia Prediabetes- Primary Other abnormal glucose Obesity, morbid (HCC) Morbid obesity 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) Essential hypertension Unspecified essential hypertension Mixed hyperlipidemia Capillary leak syndrome History of breast cancer in male Cat bite of finger, initial encounter Abnormal mammogram Abnormal mammogram, unspecified Lumbar back pain with radiculopathy affecting left lower extremity- Primary Essential hypertension Unspecified essential hypertension Primary osteoarthritis of right hip 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) Obesity, morbid (HCC) Morbid obesity History of breast cancer in male Capillary leak syndrome Incidental lung nodule, > 3mm and < 8mm- Primary Other diseases of lung, not elsewhere classified 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) Capillary leak syndrome Lumbar back pain with radiculopathy affecting left lower extremity Essential hypertension Unspecified essential hypertension 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 Obesity, morbid (HCC) Morbid obesity Prediabetes Other abnormal glucose Lumbar back pain with radiculopathy affecting left lower extremity- Primary Primary osteoarthritis of right hip [facility] Diagnosis 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 Bile reflux gastritis Other specified gastritis without mention of hemorrhage Bilateral leg edema Edema Muscle spasms of neck Benign prostatic hyperplasia with urinary obstruction Essential hypertension Unspecified essential hypertension Chronic superficial gastritis without bleeding History of breast cancer in male Acute rhinitis- Primary Acute nasopharyngitis (common cold) 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) Transition of care Chronic hip pain, right- Primary Vitamin D deficiency Paresthesia of foot, bilateral Pain in right testicle Unspecified disorder of male genital organs Epididymitis Unspecified orchitis and epididymitis Dysuria Presence of stent in coronary artery in patient with coronary artery disease Essential hypertension Unspecified essential hypertension 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) Obesity, morbid (HCC) Morbid obesity Capillary leak syndrome Mixed hyperlipidemia Prediabetes- Primary Other abnormal glucose CVD (cardiovascular disease) Unspecified cardiovascular disease Obesity, morbid (HCC) Morbid obesity 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) Muscle spasms of neck Macrocytic anemia Prediabetes- Primary Other abnormal glucose Obesity, morbid (HCC) Morbid obesity 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) Essential hypertension Unspecified essential hypertension Mixed hyperlipidemia Capillary leak syndrome History of breast cancer in male Cat bite of finger, initial encounter Abnormal mammogram Abnormal mammogram, unspecified Lumbar back pain with radiculopathy affecting left lower extremity- Primary Essential hypertension Unspecified essential hypertension Primary osteoarthritis of right hip 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) Obesity, morbid (HCC) Morbid obesity History of breast cancer in male Capillary leak syndrome Incidental lung nodule, > 3mm and < 8mm- Primary Other diseases of lung, not elsewhere classified 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) Capillary leak syndrome Lumbar back pain with radiculopathy affecting left lower extremity Essential hypertension Unspecified essential hypertension 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 Obesity, morbid (HCC) Morbid obesity Prediabetes Other abnormal glucose Lumbar back pain with radiculopathy affecting left lower extremity- Primary Primary osteoarthritis of right hip [facility] Diagnosis 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 Bile reflux gastritis Other specified gastritis without mention of hemorrhage Bilateral leg edema Edema Muscle spasms of neck Benign prostatic hyperplasia with urinary obstruction Essential hypertension Unspecified essential hypertension Chronic superficial gastritis without bleeding History of breast cancer in male Acute rhinitis- Primary Acute nasopharyngitis (common cold) 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 Transition of care Chronic hip pain, right- Primary Vitamin D deficiency Paresthesia of foot, bilateral Pain in right testicle Unspecified disorder of male genital organs Epididymitis Unspecified orchitis and epididymitis Dysuria Presence of stent in coronary artery in patient with coronary artery disease Essential hypertension Unspecified essential hypertension 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 Obesity, morbid (CMS/HCC) Morbid obesity Capillary leak syndrome Mixed hyperlipidemia Prediabetes- Primary Other abnormal glucose CVD (cardiovascular disease) Unspecified cardiovascular disease Obesity, morbid (CMS/HCC) Morbid obesity 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 Muscle spasms of neck Macrocytic anemia Prediabetes- Primary Other abnormal glucose Obesity, morbid (CMS/HCC) Morbid obesity 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 Essential hypertension Unspecified essential hypertension Mixed hyperlipidemia Capillary leak syndrome History of breast cancer in male Cat bite of finger, initial encounter Abnormal mammogram Abnormal mammogram, unspecified Lumbar back pain with radiculopathy affecting left lower extremity- Primary Essential hypertension Unspecified essential hypertension Primary osteoarthritis of right hip 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 Obesity, morbid (CMS/HCC) Morbid obesity History of breast cancer in male Capillary leak syndrome Incidental lung nodule, > 3mm and < 8mm- Primary Other diseases of lung, not elsewhere classified 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 Capillary leak syndrome Lumbar back pain with radiculopathy affecting left lower extremity Essential hypertension Unspecified essential hypertension 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 Obesity, morbid (CMS/HCC) Morbid obesity Prediabetes Other abnormal glucose Primary osteoarthritis of right hip- Primary Primary osteoarthritis of left hip documented in this encounter [facility]* Diagnosis 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 Bile reflux gastritis Other specified gastritis without mention of hemorrhage Bilateral leg edema Edema Muscle spasms of neck Benign prostatic hyperplasia with urinary obstruction Essential hypertension Unspecified essential hypertension Chronic superficial gastritis without bleeding History of breast cancer in male Acute rhinitis- Primary Acute nasopharyngitis (common cold) 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 Transition of care Chronic hip pain, right- Primary Vitamin D deficiency Paresthesia of foot, bilateral Pain in right testicle Unspecified disorder of male genital organs Epididymitis Unspecified orchitis and epididymitis Dysuria Presence of stent in coronary artery in patient with coronary artery disease Essential hypertension Unspecified essential hypertension 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 Obesity, morbid (CMS/HCC) Morbid obesity Capillary leak syndrome Mixed hyperlipidemia Prediabetes- Primary Other abnormal glucose CVD (cardiovascular disease) Unspecified cardiovascular disease Obesity, morbid (CMS/HCC) Morbid obesity 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 Muscle spasms of neck Macrocytic anemia Prediabetes- Primary Other abnormal glucose Obesity, morbid (CMS/HCC) Morbid obesity 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 Essential hypertension Unspecified essential hypertension Mixed hyperlipidemia Capillary leak syndrome History of breast cancer in male Cat bite of finger, initial encounter Abnormal mammogram Abnormal mammogram, unspecified Lumbar back pain with radiculopathy affecting left lower extremity- Primary Essential hypertension Unspecified essential hypertension Primary osteoarthritis of right hip 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 Obesity, morbid (CMS/HCC) Morbid obesity History of breast cancer in male Capillary leak syndrome Incidental lung nodule, > 3mm and < 8mm- Primary Other diseases of lung, not elsewhere classified 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 Capillary leak syndrome Lumbar back pain with radiculopathy affecting left lower extremity Essential hypertension Unspecified essential hypertension 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 Obesity, morbid (CMS/HCC) Morbid obesity Prediabetes Other abnormal glucose Primary osteoarthritis of right hip [facility] HISTORY OF [...] the lymph node biopsy. 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 His surgery was followed by 4 cycles ofchemotherapy (Taxotere and Cytoxan, which ended 04/29/2010), radiation therapy, and the Tamoxifen between 07/2010-05/2018. He was treated at [facility] in [place]. * Mr. Macario had negative genetic testing for the BRCA1/2 genes at [facility] in [place] which we reports came back negative. No [...] patient * Mr. MACARIO is of [place] Martiniqu[place], Romanian, Greek, and Malian descent. There is no known Ashkenazi Sikhism ancestry. Consanguinity was denied. [employer] Work Phone: History of Present illness NarrativePlease see previous genetics note.[employer] Work Phone: Hospital Discharge instructions* Attachments The following attachments cannot be sent through Care Everywhere. * Dental Pain Discharge Instructions (Nicaraguan) [facility] Attachments The following attachments cannot be sent through Care Everywhere. * DASH Diet (Nicaraguan) documented in this [facility]* Attachments The following attachments cannot be sent through Care Everywhere. * DASH Diet (Nicaraguan) documented in this [facility] HealthInstructions* Attachments The following attachments cannot be sent through Care Everywhere. * Phentermine and Topiramate, ADULT (Nicaraguan) documented in this [facility] HealthProgress note Author Neal Ceja [facility] Note Date/Time December 03, 2024 1 0:53am [facility] [address] [place] [address] OFFICE VISIT Date of Service: 12/03/24 MR#: [id number] Acct: [id number] Name: ABDIFATAH MACARIO Rep #: [id number] : 1950 Provider: RAVINDRA Ceja Age/Sex: 74/M Location: [facility] Status: Signed HPI HPI History of Present Illness Details: ABDIFATAH MACARIO, is a 74 M who presents to the office today for a follow-up visit. He is a gentleman with a history of chronic Cheung's esophagitis, smallpatent foramen ovale, hypertension and hyperlipidemia who returns for routine follow-up visit. He does have a history of right breast cancer with chemo and radiation in 2009- 2010. Previously, he was concerned about family history of coronary artery disease. He did undergo a coronary calcium score. Coronary calcium score was significantly elevated at 2542. It was recommended that he undergo a diagnostic heart catheterization. Because he was not symptomatic thiswas denied by his insurance. He did undergo a stress test. Patient was able towalk 6 minutes for total of 7 METS. No ischemia was noted. Echocardiogram demonstrated an ejection fraction of 65%. RVSP of 37 mmHg. He did undergo a diagnostic heart catheterization November 28, 2023. This demonstrated EF of 65%,left main with mild calcification with mild luminal irregularities, LAD moderatecalcification, mild diffuse disease noted in the proximal and mid anterior descending and mild disease present. Circumflex less than 30%, proximal circumflex moderate luminal irregularities up to 50%, ramus mild luminal irregularities, RCA dominant calcified vessel with left 80% proximal stenosis and moderate mid segment disease with mild distal disease. Patient underwent stenting to his proximal RCA. He denies chest, arm, jaw, or neck discomfort. He denies palpitations. He continues with bilateral lower extremity edema. He denies claudication. He denies shortness of breath with activity, shortness of breath at rest, orthopnea,or PND. He denies chronic cough. He denies significant, sudden weight gain. He states occasional lightheadedness. He denies dizziness, near-syncope, or syncope. He denies blood in urine, blood in stool, or epistaxis. He denies fever with chills. He denies myalgia. He denies fatigue. His exercise level has remained stable via stationary bike though limited by hip pain. He is hopingto get his hip fixed to improve his exercise. 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 Is patient in pain?: No Allergies No Known Allergies Allergy (Verified 12/03/24 09:06) Medications ?Medication ?Instructions ?Recorded ?Confirmed ?Type pantoprazole 40 mg tablet,delayed 40 mg PO QDAY acid r eflux 90 days 07/28/17 12/03/24 History release #90 tabs multivitamin 1 tab PO DAILY supplement 12/03/24 History potassium chloride 10 mEq 10 meq PO DAILY supplement 0 02/24/20 12/03/24 History capsule,extended release tamsulosin 0.4 mg capsule 0.4 mg PO DAILY prostate 12/03/24 History cholecalciferol (vitamin D3) 125 125 mcg PO DAILY supp lement 04/13/23 12/03/24 History mcg (5,000 unit) capsule mecobalamin (vitamin B12) 5,000 5,000 mcg PO DAILY sup plement 04/13/23 12/03/24 History mcg chewable tablet aspirin 81 mg tablet,delayed 81 mg PO BREAKFAST #90 ta bs 11/29/23 12/03/24 Rx release metoprolol tartrate 25 mg tablet 25 mg PO BID #180 tab s 12/25/23 12/03/24 Rx furosemide 20 mg tablet 20 mg PO BID PRN water pill 06/03/24 12/03/24 History amoxicillin 500 mg capsule 2,000 mg PO .COMPLEX PRN 12/03/24 History ascorbic acid (vitamin C) 500 mg 500 mg PO QDAY 12/03/24 History tablet famotidine 20 mg tablet 20 mg PO QHS 12/03/24 History ipratropium bromide 21 mcg (0.03 2 spray intranasal Q1 2H PRN 12/03/24 12/03/24 History %) nasal spray metaxalone 800 mg tablet 800 mg PO BID PRN muscle spa sm 12/03/24 12/03/24 History rosuvastatin 40 mg tablet 40 mg PO QDAY 12/03/2412/03 History semaglutide 0.25 mg or 0.5 mg (2 0.25 mg (0.368 mL) gerard bcut QWEEK 4 12/03/24 12/03/24 Rx mg/3 mL) subcutaneous pen injector weeks #3 mL (Ozempic) turmeric root extract 500 mg tablet 1,000 mg PO QDAY 1 12/03/24 History vitamins A,C,U-nlif-jhzdnc 4,296 1 cap PO BID 12/03/24 12/03/24 History mcg-226 mg-90 mg capsule (PreserVision AREDS) Ejection fraction %: 65 Have you fallen in the past year?: No PFSH Medical History Type 2 diabetes mellitus without complication Elevated coronary artery calcium score Abnormal screening CT of chest Bile reflux gastritis Preop cardiovascular exam Obesity Cheung esophagus Essential (primary) hypertension Patent foramen ovale Breast cancer in male Hyperlipidemia Surgical History History of coronary artery stent placement (11/28/23) History of total bilateral knee replacement (TKR) H/O right mastectomy Family History Other Breast cancer CAD (coronary artery disease) Social History Smoking Status: Never smoker alcohol intake: current alcohol intake frequency: holidays/special occasions only substance use type: does not use caffeine: Yes Type: coffee Number of servings: 3 ROS Const Const: Negative for fatigue or weakness Eyes Eyes: Negative for change in vision ENT ENT: Negative for dizziness or balance problems Cardio Chest Pain: No Palpitations: No Edema: Bilateral (Occasionally. Unchanged from previous. Relates to chemo) Muscle aches with walking: None Resp Respiratory: Negative for SOB with activity, SOB at rest or SOB orthopnea\SOB lying down GI GI: Negative nausea or heartburn : Negative for hematuria or frequent nighttime urination/ nocturia Musc Musc: Negative for balance problems Skin Skin: Negative non-healing lesions or rash Neuro Neuro: Positive for lightheadedness (Occasionally); Negative for dizziness, near syncope, syncope or weakness Endo Endo: Negative for fatigue Allergy Allergy/Immunology: Negative for rash Cardiology Exam Const Appearance: cooperative, healthy appearing, comfortable and no acute distress Nutritional Appearance: well nourished and obese Orientation: alert, awake and oriented x3 Head Head: normal to inspection Ears: hearing grossly normal bilaterally Nose: external nose normal Face and Sinus: face symmetric Mouth: moist mucous membranes Eyes General: appearance normal, both eyes and all related structures Eyelids: eyelids normal EOM: EOM intact bilaterally Neck Neck: normal visual inspection and no JVD Carotids: normal carotid upstroke Chest Chest inspection: normal inspection of the chest, symmetric chest movement and normal respiratory effort; Negative cough Auscultation: Bilateral: Clear to Auscultation Cardio Rate: regular rate Rhythm: regular rhythm Heart sounds: S1 normal and S2 normal; Negative rub, gallop or murmur GI GI: normal to inspection and obese Neuro General: patient alert, patient awake, patient oriented x3 and CN's II-XI intactbilaterally Skin Skin: no rashes or lesions noted Extremities Pulses: Normal: Right Posterior Tibial Pulse, Left Posterior Tibial Pulse, RightRadial Pulse and Left Radial Pulse Lower Extremity Edema: None: Bilateral Psych Psychological: normal affect Supplemental Info Supplemental Information Echocardiogram 05/08/2022: Normal LV size. Left ventricular systolic function is normal. The estimated ejection fraction is 65 %. Pulmonary artery systolic pressure is 37 mmHg. The global longitudinal strain is normal. The global longitudinal strain = - 19.9% (normal). Exercise myocardial perfusion stress test 02/15/2023: Conclusion: Normal exercise myocardial perfusion stress test at a moderate workload Preserved ejection fraction. Cardiac cath with PCI: 11/28/2023: CONCLUSIONS Successful AIYANA to pRCA CORONARY ANGIOGRAPHY DOMINANCE: Right Dominant LEFT HEART ASSESSMENT Left Ventricular Ejection Fraction: by Echo 65 % Normal LV wall motion Normal Left Ventricular systolic function LEFT MAIN: Mild calcification, Mild luminal irregularities LEFT ANTERIOR DESCENDING ARTERY: Moderate calcification, Mild diffuse disease noted in the proximal and mid left anterior descending artery and mild distal disease present. CIRCUMFLEX ARTERY: Mild luminal irregularities less than 30% PROX CIRC: Moderate luminal irregularities up to 50% RAMUS: Mild luminal irregularities RIGHT CORONARY ARTERY: Dominant calcified vessel with the left 80% proximal stenosis and moderate mid segment disease and mild diffuse distal disease Coronary Angiography 10/17/22 Findings Coronary Artery Left Main (LM): 0 Left Anterior Descending (LAD): 1,118 Left Circumflex (LCX): 443 Right Coronary Artery (RCA): 980 Total Agatston Score: 2,541 Conclusion: Extensive atherosclerotic plaquing noted with significant calcification noted inthe left anterior descending artery and right coronary artery territories. Significantly elevated compared to people of the same gender and age. Assessment and Plan Assessment and Plan (1) History of coronary artery stent placement: Status: Acute Comment: 4.0 x 38 HOWARD FRONTIER AIYANA to pRCA 11/28/23 Plan: This appears stable. We will continue to monitor and not make any medication regimen changes. We will continue to promote risk factor and lifestyle modification. Will discontinue Brilinta since greater than one year of stenting.Over time, if blood pressure allows, will consider discontiue his beta bryan. If there are future issues with aspirin, we will consider Plavix therapy. Hopefully in time as his hip issues resolves he will be able to increase his exercise. (2) Essential (primary) hypertension: Status: Chronic Plan: Patient's blood pressure is well-controlled today in the office. We will continue to monitor. We will not make any medication regimen changes. (3) Patent foramen ovale: Status: Chronic Plan: Will continue to follow with echocardiograms as deemed appropriate. (4) Hyperlipidemia: Status: Chronic Qualifiers: Hyperlipidemia type: pure hypercholesterolemia Qualified Code(s): E78.00 - Pure hypercholesterolemia, unspecified Plan: He was reminded of LDL goal of 70 and below for secondary prevention. He will continue Crestor 40 mg p.o. daily. This is being monitored with primary care provider. (5) Type 2 diabetes mellitus without complication: Status: Acute Plan: He is currently on GLP-1 medication. He notes nausea and worsening GERD and willcontinue at current dosage. Will consider increasing over time as he tolerates it. Medications: New semaglutide (Ozempic) for 4 weeks 0.25 mg (0.368 mL) subcut QWEEK 3 mL 0RF 4 weeks Discontinued ticagrelor (Brilinta) Discontinued Reason: Order Completed 90 mg PO BID 180 tabs 3RF Plan Details Additional Comments: Thank you for allowing us to participate in the patients plan of care, if you have any questions please do not hesitate to call. Plan was reviewed with patient/family member along with red flag symptoms. Understanding was acknowledged. Questions were answered to apparent satisfaction. This note was generated using a voice recognition system and there may be incorrect words, spelling or punctuation that were not noted when reviewing the office note prior to saving. Portions of this documentation were copied and pasted from previous office visitnotes to provide a cohesive continuity of the history. The note has been reviewed, edited, and updated, as necessary. Follow Up: Keep as is (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) Coding Level of Care Code Off vis,est,level 4 Diagnoses History of coronary artery stent placement Z95.5 Essential (primary) hypertension I10 Patent foramen ovale Q21.1 Pure hypercholesterolemia E78.00 Hyperlipidemia type: pure hypercholesterolemia Type 2 diabetes mellitus without complication E11.9 Coding Level of Care Code Off vis,est,level 4 Diagnoses History of coronary artery stent placement Z95.5 Essential (primary) hypertension I10 Patent foramen ovale Q21.1 Pure hypercholesterolemia E78.00 Hyperlipidemia type: pure hypercholesterolemia Type 2 diabetes mellitus without complication E11.9 Clinical Quality Measures Falls Risk Screening/Assistive Devices Have you fallen in the past year?: No Cardiac Ejection fraction %: 65 12/03/24 1009 <Electronically signed by Neal WAITE> Date _ Neal AIKENC Cosigner Signature: Date (if applicable) CC: Dr. Danial Dempsey MD ~ [facility] Work Phone: [facility] Diagnostic Procedure Only (Routine) - Pending Review Specialty Diagnoses / Procedures Referred By Contac t Referred To Contact US IMAGING Diagnoses Nausea Pain of upper abdomen Procedures US ABDOMEN LTD US ABDOMINAL REAL TIME W/IMAGE LIMITED Yvon Warner MD [address] [place] [address] Us Imaging Referral ID Status Reason Start Date Expiration Date Visits Requested Visits Authorized [id number] Pending Review Auto-Generat ed Referral 05/19/2021 06/18/2022 1 1 [facility] for referral (narrative)* Consultation (Routine) - Pending Review Specialty Diagnoses / Procedures Referred By Contac t Referred To Contact Gastroenterology Diagnoses 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 Bile reflux gastritis Procedures [place] OFFICE/OUTPATIENT [facility] 60-74 MINUTES Danial Dempsey MD [address] [place] [address] [address] [place] [address] Tristan Miller DO [address] [facility] [address] [place] [address] Referral ID Status Reason Start Date Expiration Date Visits Requested Visits Authorized [id number] Pending Review Specialty Services Required 05/26/2022 05/26/2023 1 1 [facility] for referral (narrative)* Diagnostic Procedure Only (Routine) - Closed Specialty Diagnoses / Procedures Referred By Contac t Referred To Contact XR IMAGING Diagnoses Primary osteoarthritis of left knee Procedures XR KNEE POST OP 3V AP/LAT/MERCHANT LT X-RAY KNEE 3+ VW Franklyn Denis, PA-C [address] [place] [address] [place] [address] Referral ID Status Reason Start Date Expiration Date V isits Requested Visits Authorized [id number] Closed Auto-Generate d Referral 11/15/2020 12/15/2021 1 1 [facility] for referral (narrative)* Diagnostic Procedure Only (Routine) - Closed Specialty Diagnoses / Procedures Referred By Contac t Referred To Contact XR IMAGING Diagnoses Pain Procedures XR KNEE GENERAL 4V AP BOTH/PA BOTH/LAT/MERC LT KNEE AP-WGT/LAT/Celina Haro MD [address] [place] [address] Xr Imaging [facility] Referral ID Status Reason Start Date Expiration Date V isits Requested Visits Authorized Closed Auto-Generate d Referral 10/12/2020 11/11/2021 1 1 [facility] for referral (narrative)No reason for referral information availableWKet[facility] Work Phone: [facility] for visit Narrative* Diagnostic Procedure Only (Routine) - Closed Specialty Diagnoses / Procedures Referred By Contac t Referred To Contact XR IMAGING Diagnoses Pain Procedures XR KNEE GENERAL 4V AP BOTH/PA BOTH/LAT/MERC LT KNEE AP-WGT/LAT/Celina Haro MD [address] [place] [address] Xr Imaging [place] [id number] Referral ID Status Reason Start Date Expiration Date V isits Requested Visits Authorized Closed Auto-Generate d Referral 10/12/2020 11/11/2021 1 1 [facility] for visit Narrative* Therapy (Routine) - Authorized Specialty Diagnoses / Procedures Referred By Contac t Referred To Contact Physical Therapy Diagnoses Lumbar back pain with radiculopathy affecting left lower extremity Primary osteoarthritis of right hip Procedures [place] OFFICE/OUTPATIENT [facility] 60 MINUTES Danial Dempsey MD [address] [place] [address] [place] [address] Phone: tel: fax: [facility] at [address] [place] [address] Phone: tel: fax: Referral ID Status Reason Start Date Expiration Date Visits Requested Visits Authorized [id number] Authorized Eval and Treat 07/11/2024 07/06/2025 99 99 [facility] for visit Narrative* Diagnostic Procedure Only (Routine) - Closed Specialty Diagnoses / Procedures Referred By Contac t Referred To Contact XR IMAGING Diagnoses Pain Procedures XR HIP BILATERAL 5V PEL/AP/LAT EACH HIP RADEX HIPS BILATERAL WITH PELVIS MINIMUM 5 VIEWS Carlos Hernandez PA-C [address] [address] Phone: tel: fax: [place] [address] Referral ID Status Reason Start Date Expiration Date V isits Requested Visits Authorized [id number] Closed Auto-Generate d Referral 08/08/2024 09/07/2025 1 1 [facility] Advance Directives Documents on File Type Date Recorded Patient Maintenance Controller Expl anation Advance Directives and Living Will Power of Agency Trainer Documents on File Type Date Recorded Patient Maintenance Controller Expl anation ACP-Advance Directive see ab ove ACP-Power of Agency Trainer will b ring in next visit 03-14-19_AW Documents on File Type Date Recorded Patient Maintenance Controller Expl anation Advance Directive(s) 04/07/2019 6:31 AM Documents on File Type Date Recorded Patient Maintenance Controller Expl anation ACP-Advance Directive see ab ove ACP-Power of Agency Trainer will b ring in next visit 03-14-19_AW Documents on File Type Date Recorded Patient Maintenance Controller Expl anation ACP-Advance Directive see ab ove ACP-Power of Agency Trainer will b ring in next visit 07/30/20-RW Documents on File Type Date Recorded Patient Maintenance Controller Expl anation Advance Directives and Living Will see above Power of Agency Trainer will bring in next visit 03-14-19_AW Documents on File Type Date Recorded Patient Maintenance Controller Expl anation Advance Directive(s) 12/27/2020 2:57 PM Advance Directive(s) 12/06/2020 1:54 PM Advance Directive(s) 08/18/2020 7:43 AM Advance Directive(s) 03/15/2020 7:38 AM Advance Directive(s) 02/19/2020 12:13 PM Advance Directive(s) 04/07/2019 6:31 AM Documents on File Type Date Recorded Patient Maintenance Controller Expl anation Advance Directive(s) 12/27/2020 2:57 PM Advance Directive(s) 12/06/2020 1:54 PM Advance Directive(s) 08/18/2020 7:43 AM Advance Directive(s) 03/15/2020 7:38 AM Advance Directive(s) 02/19/2020 12:13 PM Advance Directive(s) 04/07/2019 6:31 AM Advance Directive Response Recorded Date/ Time Advance Directives on File No 2022 8:08am Advance Directives No October 8:08am Living Will No November 06, 2022 8:08am Power of Agency Trainer No October 8:08am Advance Directive Response Recorded Date/ Time Advance Directives on File No 2022 7:08am Advance Directives No October 7:08am Living Will No November 06, 2022 7:08am Power of Agency Trainer No October 7:08am Advance Directive Response Recorded Date/ Time Advance Directives Yes November 28, 2023 7:20am Advance Directive Response Recorded Date/ Time Living Will No November 06, 2022 8:08am Do you have a Healthcare Power of Agency Trainer? No November 06, 2022 8:08am Advance Directives Yes November 28, 2023 7:20am Advance Directive Response Recorded Date/ Time Advance Directives Yes November 28, 2023 6:20am Summary Purpose Family History Relationship Condition Age at Onset Recorded Date/T citlalli Not Specified Coronary artery disease Unknown Malignant neoplasm of breast Unknown History of Past Illness Problem Noted Date Resolved Date Dermatochalasis of both upper eyelids 04/07/2019 04/07/2019 Assessments Diagnosis Left knee pain, unspecified chronicity- Primary Reason for Referral Status Reason Specialty Diagnoses / Procedures Referre d By Contact Referred To Contact Open Radiology Diagnoses Nausea Procedures US ABDOMEN LIMITED Danial Dempsey MD [address] [place] [address] [address] [place] [address] Specialty Diagnoses / Procedures Referred By Contac t Referred To Contact Radiology Diagnoses 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 Localized edema Procedures US Renal Limited Danial Dempsey MD [address] [place], [place] [address] [place] [address] Referral ID Status Reason Start Date Expiration Date Visits Re quested Visits Authorized [id number] Open 09/23/2021 09/23/2022 1 1 Specialty Diagnoses / Procedures Referred By Sudeep dillon Referred To Contact Diagnoses Muscle spasms of neck Danial Dempsey MD [address] [place], [place] [address] [place] [address] Referral ID Status Reason Start Date Expiration Date V isits Requested Visits Authorized [id number] Pending Review 1 1 Referral ID Status Reason Start Date Expiration Date Visits Re quested Visits Authorized [id number] Closed 1 1 Specialty Diagnoses / Procedures Referred By Sudeep dillon Referred To Contact Radiology Diagnoses 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 Chief Complaint and Reason for Visit Chief Complaint 1 Y FU (MOVED FROM [facility]) CONGENITAL HEART DISEASE Reason for Visit Essential (primary) hypertension Hyperlipidemia Patent foramen ovale Chief Complaint HTN/HL HTN/HL Chief Complaint HTN/HL HTN/HL HTN/HL Abnormal findings on diagnostic imaging of other s ELEVATED CALCIUM SCORE ELEVATED CALCIUM SCORE Chief Complaint Abnormal findings on diagnostic imaging of other s ELEVATED CALCIUM SCORE ELEVATED CALCIUM SCORE ELEVATED CALCIUM SCORE; ABN EKG ELEVATED CALCIUM SCORE; ABN EKG Chief Complaint Admit Date LUNG NODULE January 31, 2024 3:53pm PCI with stenting February 11, 2024 10:15am PCI with stenting March 14, 2024 1 0:15am 3 M FU April 08, 2024 9:06am PCI with stenting April 09, 2024 10:15am PCI with stenting May 12, 2024 3:1 5pm Reason for Visit Admit Date Abnormal screening CT of chest April 08, 2024 9:06am History of coronary artery stent placeme nt April 08, 2024 9:06am Essential (primary) hypertension 2024 9:06am Hyperlipidemia April 08, 2024 9:06am Patent foramen ovale April 08, 2024 9:06am Chief Complaint Admit Date PCI with stenting February 11, 2024 10:15am PCI with stenting March 14, 2024 1 0:15am 3 M FU April 08, 2024 9:06am PCI with stenting April 09, 2024 10:15am PCI with stenting May 12, 2024 3:1 5pm PCI with stenting May 23, 2024 10: 15am 1 Y FU June 03, 2024 9:3 2am PH III monthly maintenance free month Ap ril 2024 8:00am Reason for Visit Admit Date Abnormal screening CT of chest April 08, 2024 9:06am History of coronary artery stent placeme nt April 08, 2024 9:06am Essential (primary) hypertension 2024 9:06am Hyperlipidemia April 08, 2024 9:06am Patent foramen ovale April 08, 2024 9:06am History of coronary artery stent placeme nt June 03, 2024 9:32am Essential (primary) hypertension May 142024 9:32am Hyperlipidemia June 03, 2024 9:3 2am Patent foramen ovale June 03, 2024 9: 32am Chief Complaint Admit Date 3 M FU April 08, 2024 9:06am PCI with stenting April 09, 2024 10:15am PCI with stenting May 12, 2024 3:1 5pm PCI with stenting May 23, 2024 10: 15am 1 Y FU June 03, 2024 9:3 2am PH III monthly maintenance free month Ap ril 2024 8:00am PH III monthly maintenance free month Ma y 2024 8:00am Chief Complaint Admit Date 6 M FU December 03, 2024 8 :55am Reason for Visit Admit Date History of coronary artery stent placeme nt December 03, 2024 8:55am Type 2 diabetes mellitus without complic ation December 03, 2024 8:55am Essential (primary) hypertension December 03, 2024 8:55am Hyperlipidemia December 03, 2024 8 :55am Patent foramen ovale December 03, 2024 8:55am Additional Source Comments (unrecognized sect ion and content) No Status Records FoundNo Status Records FoundNo Status Records FoundNo Status Records FoundNo Status Records FoundNo Status Records FoundNo Status Records FoundNo Status Records FoundNo Status Records FoundNo Status Records Found INFORMATION SOURCE (unrecogn ized section and content) DATE CREATED AUTHOR 04/07/2019 [facility] DATE CREATED AUTHOR AUTHOR'S ORGANIZ ATION 12/30/2020 [facility] DATE CREATED AUTHOR AUTHOR'S ORGANIZ ATION 06/25/2021 [employer] DATE CREATED AUTHOR AUTHOR'S ORGANIZ ATION 12/08/2021 [facility] DATE CREATED AUTHOR AUTHOR'S ORGANIZ ATION 12/10/2021 [facility] DATE CREATED AUTHOR AUTHOR'S ORGANIZ ATION 12/06/2022 [facility] DATE CREATED AUTHOR AUTHOR'S ORGANIZ ATION 04/23/2024 [facility] DATE CREATED AUTHOR AUTHOR'S ORGANIZ ATION 11/28/2024 [facility] DATE CREATED AUTHOR AUTHOR'S ORGANIZ ATION 12/03/2024 [facility] DATE CREATED AUTHOR AUTHOR'S ORGANIZ ATION 12/23/2024 [facility] Source Comments (unrecognize d section and content) In the event this informatio n is protected by the Federal Confidentiality of Alcohol and Drug Abuse Patient Records regulations: The Federal rules restrict any use of the information to criminally investigate or prosecute any alcohol or drug abuse patient.[facility] ClinicIn the event this information is protected by the Federal Confidentiality of Alcohol and Drug Abuse Patient Records regulations: The Federal rules restrict any use of the information to criminally investigate or prosecute any alcohol or drug abuse patient.[facility] the event this information is protected by the Federal Confidentiality of Alcohol and Drug Abuse Patient Records regulations: The Federal rules restrict any use of the information to criminally investigate or prosecute any alcohol or drug abuse patient.[facility] the event this information is protected by the Federal Confidentiality of Alcohol and Drug Abuse Patient Records regulations: The Federal rules restrict any use of the information to criminally investigate or prosecute any alcohol or drug abuse patient.[facility] the event this information is protected by the Federal Confidentiality of Alcohol and Drug Abuse Patient Records regulations: The Federal rules restrict any use of the information to criminally investigate or prosecute any alcohol or drug abuse patient.[facility] the event this information is protected by the Federal Confidentiality of Alcohol and Drug Abuse Patient Records regulations: The Federal rules restrict any use of the information to criminally investigate or prosecute any alcohol or drug abuse patient.[facility] the event this information is protected by the Federal Confidentiality of Alcohol and Drug Abuse Patient Records regulations: The Federal rules restrict any use of the information to criminally investigate or prosecute any alcohol or drug abuse patient.[facility] the event this information is protected by the Federal Confidentiality of Alcohol and Drug Abuse Patient Records regulations: The Federal rules restrict any use of the information to criminally investigate or prosecute any alcohol or drug abuse patient.[facility] the event this information is protected by the Federal Confidentiality of Alcohol and Drug Abuse Patient Records regulations: The Federal rules restrict any use of the information to criminally investigate or prosecute any alcohol or drug abuse patient.[facility] the event this information is protected by the Federal Confidentiality of Alcohol and Drug Abuse Patient Records regulations: The Federal rules restrict any use of the information to criminally investigate or prosecute any alcohol or drug abuse patient.[facility] the event this information is protected by the Federal Confidentiality of Alcohol and Drug Abuse Patient Records regulations: The Federal rules restrict any use of the information to criminally investigate or prosecute any alcohol or drug abuse patient.[facility] the event this information is protected by the Federal Confidentiality of Alcohol and Drug Abuse Patient Records regulations: The Federal rules restrict any use of the information to criminally investigate or prosecute any alcohol or drug abuse patient.[facility] the event this information is protected by the Federal Confidentiality of Alcohol and Drug Abuse Patient Records regulations: The Federal rules restrict any use of the information to criminally investigate or prosecute any alcohol or drug abuse patient.[facility] the event this information is protected by the Federal Confidentiality of Alcohol and Drug Abuse Patient Records regulations: The Federal rules restrict any use of the information to criminally investigate or prosecute any alcohol or drug abuse patient.[facility] the event this information is protected by the Federal Confidentiality of Alcohol and Drug Abuse Patient Records regulations: The Federal rules restrict any use of the information to criminally investigate or prosecute any alcohol or drug abuse patient.[facility] the event this information is protected by the Federal Confidentiality of Alcohol and Drug Abuse Patient Records regulations: The Federal rules restrict any use of the information to criminally investigate or prosecute any alcohol or drug abuse patient.[facility] the event this information is protected by the Federal Confidentiality of Alcohol and Drug Abuse Patient Records regulations: The Federal rules restrict any use of the information to criminally investigate or prosecute any alcohol or drug abuse patient.[facility] Reason for Visit (unrecogniz ed section and content) Reason Onset Date Comments Refill Request 05/09/2021 Reason Comments Nausea Colon 11/10/20 labs 1 02/28/20 Reason Comments Refill Request Reason Comments Follow-up Seen by Renal doctor Med Refill Reason Comments Med Refill Reason Comments Anxiety Reason Comments Follow-up Anxiety Reason Comments Medicare Annual Wellness Visit Subsequen t Reason Comments Follow-up Reason Comments Follow-up Hypertension Reason Onset Date Comments Med Refill 03/26/2023 Reason Comments Follow-up Reason Comments Radiology XR Specialty Diagnoses / Procedures Referred By Contac t Referred To Contact XR IMAGING Diagnoses Primary osteoarthritis of left knee Procedures XR KNEE POST OP 3V AP/LAT/MERCHANT LT X-RAY KNEE 3+ VW Franklyn Denis D, PA-C [address] [place] [id number] Xr Imaging [place] [address] Referral ID Status Reason Start Date Expiration Date V isits Requested Visits Authorized [id number] Closed Auto-Generate d Referral 11/15/2020 12/15/2021 1 1 Reason Comments Radio Gen RMP Reason Onset Date Comments Appointment 11/30/2023 Reason Onset Date Comments Med Refill 11/27/2023 Reason Comments Hospital Follow-up Shoulder back hip pa in Reason Comments Health Maintenance Bp, Pain right hip. Reason Comments Follow-up HTN and results to U ltrasound Reason Onset Date Comments Other 04/21/2024 2nd attempt to s chedule Reason Comments Follow-up Weight loss Reason Comments Follow-up Imaging Reason Onset Date Comments Other 08/08/2024 Reason Comments Consult Right hip pain start ed 2 years ago - now pain is getting worse and radiates to buttocks and groin . Left hip pain started 2 to 4 months ago with radiation down lat. thigh. Reason Comments Follow-up Back and hip pain Reason Comments Jaw Pain Pt states he had den denia surgery on and has had increased pain on right jaw since then. Pt believes he might have some swelling. Denies bleeding or drainage Reason Comments New Patient Bilateral hip pain Reason Onset Date Comments Cardiac Optimization 12/16/2024 Care Teams (unrecognized sec tion and content) Tailman Relationship Specialty Start Date End Date Danial Dempsey MD [address] [place] [address] PCP - General Family Practice 04/07/19 Tailman Relationship Specialty Start Date End Date Danial Dempsey MD [address] [address] PCP - General Family Practice 04/07/19 Tailman Relationship Specialty Start Date End Date Danial Dempsey MD [address] [address] PCP - General Family Practice 04/07/19 Tailman Relationship Specialty Start Date End Date Danial Dempsey MD [address] [address] PCP - General 07/23/14 Tailman Relationship Specialty Start Date End Date Danial Dempsey MD [address] [address] PCP - General 07/23/14 Tailman Relationship Specialty Start Date End Date Danial Dempsey MD [address] [address] PCP - General Family Practice 04/07/19 Tailman Relationship Specialty Start Date End Date Danial Dempsey MD [address] [address] PCP - General 07/23/14 Tailman Relationship Specialty Start Date End Date Danial Dempsey MD [address] [address] PCP - General 07/23/14 Tailman Relationship Specialty Start Date End Date Danial Dempsey MD [address] [address] PCP - General 07/23/14 Tailman Relationship Specialty Start Date End Date Danial Dempsey MD [address] [address] PCP - General 07/23/14 Team Status: Active Member Role Status Dates DANIAL DEMPSEY Family Provider Active Out of [facility] Doctor Primary Care Provider Active Team Status: Inactive Member Role Status Dates Out of [facility] Doctor Primary Care Provider, Referring Pr ovider Active Dr. Addy Pardo MD Active Caroline Calloway PA, PA Attending Provider Active Team Status: Active Member Role Status Dates Out of [facility] Doctor Primary Care Provider Active Dr. Addy Pardo MD Attending Provider Active Team Status: Inactive Member Role Status Dates Out of [facility] Doctor Primary Care Provider Active Caroline Calloway PA, PA Attending Provider, Referr ing Provider Active [place] Relationship Specialty Start Date End Date Danial Dempsey MD [address] [address] PCP - General 07/23/14 Tailman Relationship Specialty Start Date End Date Danial Dempsey MD [address] [address] PCP - General Family Medicine 04/07/19 Tailman Relationship Specialty Start Date End Date Danial Dempsey MD [address] [address] PCP - General 07/23/14 Tailman Relationship Specialty Start Date End Date Danial Dempsey MD [address] [address] PCP - General 07/23/14 Team Status: Active Member Role Status Dates DANIAL DEMPSEY Family Provider Active DANIAL DEMPSEY Primary Care Provider Active Team Status: Active Member Role Status Dates Caroline MOSELEY, PA Referring Provider, Other Provider Active Dr. Addy Pardo MD Attending Provider Active Team Status: Inactive Member Role Status Dates Caroline MOSELEY PA Attending Provider, Referr ing Provider Active [place] Relationship Specialty Start Date End Date Danial Dempsey MD [address] [address] PCP - General 07/23/14 Tailman Relationship Specialty Start Date End Date Danial Dempsey MD [address] [address] PCP - General 07/23/14 Tailman Relationship Specialty Start Date End Date Danial Dempsey MD [address] [address] PCP - General 07/23/14 Tailman Relationship Specialty Start Date End Date Danial Dempsey MD [address] [address] PCP - General Family Medicine 04/07/19 Team Status: Active Member Role Status Dates Dr. Addy Pardo MD Attending Provider Active Caroline MOSELEY, PA Referring Provider Active Team Status: Active Member Role Status Dates ROSELYN BARROW Primary Care Provider Active Dr. Addy Pardo MD Attending Provider, Referring Provider, Other Provider Active Team Status: Inactive Member Role Status Dates Caroline MOSELEY PA Attending Provider, Referr ing Provider Active ROSELYN BARROW Primary Care Provider Active Team Status: Inactive Member Role Status Dates ROSELYN BARROW Primary Care Provider Active Dr. Addy Pardo MD Attending Provider, Referring Pro vider Active [place] Relationship Specialty Start Date End Date Danial Dempsey MD [address] [address] PCP - General 07/23/14 Tailman Relationship Specialty Start Date End Date Danial Dempsey MD [address] [address] PCP - General 07/23/14 Team Status: Active Member Role Status Dates ROSELYN BARROW Primary Care Provider Active Caroline MOSELEY, PA Referring Provider, Other Provider Active Dr. Addy Pardo MD Attending Provider Active Team Status: Inactive Member Role Status Dates ROSELYN BARROW Primary Care Provider Active Caroline MOSELEY, [place] Attending Provider, Referr ing Provider Active Tailman Relationship Specialty Start Date End Date Danial Dempsey MD [address] [address] PCP - General 07/23/14 Tailman Relationship Specialty Start Date End Date Danial Dempsey MD [address] [address] PCP - General 07/23/14 Tailman Relationship Specialty Start Date End Date Danial Dempsey MD [address] [address] PCP - General 07/23/14 Tailman Relationship Specialty Start Date End Date Danial Dempsey MD [address] [address] PCP - General 07/23/14 Tailman Relationship Specialty Start Date End Date Danial Dempsey MD 155 [address] [place] [address] PCP - General 01/22/13 Rajan Carl MD 5133 [facility], [facility] 5 [place] [address] Consulting Physician Hematology and Oncology 04/19/23 Tailman Relationship Specialty Start Date End Date Danial Dempsey MD 155 [facility] 115 [facility] [place] [place] [address] PCP - General 07/23/14 Tailman Relationship Specialty Start Date End Date Danial Dempsey MD [address] [place] [address] 115 [facility] [place] [address] PCP - General Family Medicine 04/07/19 Tailman Relationship Specialty Start Date End Date Danial Dempsey MD [address] [place] [address] 115 [facility] [place] [place] [address] PCP - General Family Medicine 04/07/19 Tailman Relationship Specialty Start Date End Date Danial Dempsey MD [address] [place] [address] 115 [facility] [place] [place] [address] PCP - General Family Medicine 04/07/19 Tailman Relationship Specialty Start Date End Date Danial Dempsey MD [address] [place] [address] 115 [facility] [place] [place] [address] PCP - General Family Medicine 04/07/19 Tailman Relationship Specialty Start Date End Date Danial Dempsey MD [address] [place] [address] 115 [facility] [place] [place] [address] PCP - General Family Medicine 04/07/19 Tailman Relationship Specialty Start Date End Date Danial Dempsey MD [address] [address] PCP - General 07/23/14 Tailman Relationship Specialty Start Date End Date Danial Dempsey MD [address] [address] PCP - General 07/23/14 Tailman Relationship Specialty Start Date End Date Danial Dempsey MD [address] [address] PCP - General 07/23/14 Tailman Relationship Specialty Start Date End Date Danial Dempsey MD [address] [address] PCP - General 07/23/14 Tailman Relationship Specialty Start Date End Date Danial Dempsey MD [address] [address] PCP - General 07/23/14 Tailman Relationship Specialty Start Date End Date Danial Dempsey MD [address] [address] PCP - General 07/23/14 Tailman Relationship Specialty Start Date End Date Danial Dempsey MD [address] [address] PCP - General 07/23/14 Tailman Relationship Specialty Start Date End Date Danial Dempsey MD [address] [address] PCP - General 07/23/14 Tailman Relationship Specialty Start Date End Date Danial Dempsey MD [address] [address] PCP - General 07/23/14 Tailman Relationship Specialty Start Date End Date Danial Dempsey MD [address] [address] PCP - General 07/23/14 Tailman Relationship Specialty Start Date End Date Danial Dempsey MD [address] [address] PCP - General 07/23/14 Tailman Relationship Specialty Start Date End Date Danial Dempsey MD [address] [place] [address] PCP - General 07/23/14 Tailman Relationship Specialty Start Date End Date Danial Dempsey MD [address] [place] [address] PCP - General 07/23/14 Tailman Relationship Specialty Start Date End Date Danial Dempsey MD [address] [address] PCP - General 07/23/14 Tailman Relationship Specialty Start Date End Date Danial Dempsey MD [address] [address] PCP - General 07/23/14 Tailman Relationship Specialty Start Date End Date Danial Dempsey MD 155 [place], [place] [address] [place] [address] PCP - General 07/23/14 Tailman Relationship Specialty Start Date End Date Danial Dempsey MD 155 [facility] 115 [place] [address] PCP - General 01/22/13 Rajan Carl MD 5133 [facility], [address] [id number] Consulting Physician Hematology and Oncology 04/19/23 Tailman Relationship Specialty Start Date End Date Danial Dempsey MD [address] [address] PCP - General 07/23/14 Team Status: Active Member Role Status Dates Dr. Danial Dempsey MD Primary Care Provider Acti ve Team Status: Inactive Member Role Status Dates Dr. Danial Dempsey MD Primary Care Provider Acti ve Start: January 31, 2024 End: January 31, 2024 Caroline MOSELEY, PA Attending Provider Active Start: January 31, 2024 End: January 31, 2024 Caroline MOSELEY, PA Referring Provider Active Start: January 31, 2024 End: January 31, 2024 Team Status: Inactive Member Role Status Dates Dr. Danial Dempsey MD Primary Care Provider Acti ve Start: February 11, 2024 End: February 12, 2024 Dr. Addy Pardo MD Attending Provider Active S tart: February 11, 2024 End: February 12, 2024 Dr. Addy Pardo MD Referring Provider Active S tart: February 11, 2024 End: February 12, 2024 Team Status: Inactive Member Role Status Dates Dr. Danial Dempsey MD Primary Care Provider Acti ve Start: March 14, 2024 End: March 14, 2024 Dr. Addy Pardo MD Attending Provider Active S tart: March 14, 2024 End: March 14, 2024 Dr. Addy Pardo MD Referring Provider Active S tart: March 14, 2024 End: March 14, 2024 Team Status: Inactive Member Role Status Dates Dr. Danial Dempsey MD Primary Care Provider Acti ve Start: April 08, 2024 End: April 08, 2024 Dr. Danial Dempsey MD Referring Provider Active Start: April 08, 2024 End: April 08, 2024 Caroline Calloway PA, PA Attending Provider Active Start: April 08, 2024 End: April 08, 2024 Team Status: Inactive Member Role Status Dates Dr. Danial Dempsey MD Primary Care Provider Acti ve Start: April 09, 2024 End: April 11, 2024 Dr. Addy Pardo MD Attending Provider Active S tart: April 09, 2024 End: April 11, 2024 Dr. Addy Pardo MD Referring Provider Active S tart: April 09, 2024 End: April 11, 2024 Team Status: Inactive Member Role Status Dates Dr. Danial Dempsey MD Primary Care Provider Acti ve Start: May 12, 2024 End: May 12, 2024 Dr. Addy Pardo MD Attending Provider Active S tart: May 12, 2024 End: May 12, 2024 Dr. Addy Pardo MD Referring Provider Active S tart: May 12, 2024 End: May 12, 2024 Tailman Relationship Specialty Start Date End Date Danial Dempsey MD [address] [place] [address] PCP - General Family Medicine 04/07/19 Team Status: Active Member Role Status Dates Dr. Danial Dempsey MD Primary Care Provider Acti ve Start: May 23, 2024 Dr. Addy Pardo MD Attending Provider Active S tart: May 23, 2024 Dr. Addy Pardo MD Referring Provider Active S tart: May 23, 2024 Team Status: Inactive Member Role Status Dates Dr. Addy Pardo MD Attending Provider Active S tart: June 03, 2024 End: June 03, 2024 Dr. Danial Dempsey MD Primary Care Provider Acti ve Start: June 03, 2024 End: June 03, 2024 Dr. Danial Dempsey MD Referring Provider Active Start: June 03, 2024 End: June 03, 2024 Team Status: Inactive Member Role Status Dates Dr. Danial Dempsey MD Primary Care Provider Acti ve Start: June 03, 2024 End: June 03, 2024 Dr. Addy Pardo MD Attending Provider Active S tart: June 03, 2024 End: June 03, 2024 Dr. Addy Pardo MD Referring Provider Active S tart: June 03, 2024 End: June 03, 2024 Team Status: Active Member Role Status Dates Dr. Danial Dempsey MD Primary Care Provider Acti ve Start: June 05, 2024 Dr. Addy Pardo MD Attending Provider Active S tart: June 05, 2024 Dr. Addy Pardo MD Referring Provider Active S tart: June 05, 2024 Tailman Relationship Specialty Start Date End Date Danial Dempsey MD 155 [place] [address] PCP - General 07/23/14 Tailman Relationship Specialty Start Date End Date Danial Dempsey MD 155 [place] [address] PCP - General 07/23/14 Tailman Relationship Specialty Start Date End Date Danial Dempsey MD [address] [address] PCP - General 07/23/14 Tailman Relationship Specialty Start Date End Date Danial Dempsey MD [address] [address] PCP - General 07/23/14 Tailman Relationship Specialty Start Date End Date Danial Dempsey MD 155 [place], [place] [address] [place] [address] PCP - General 07/23/14 Team Status: Inactive Member Role Status Dates Dr. Danial Dempsey MD Primary Care Provider Acti ve Start: May 23, 2024 End: June 11, 2024 Dr. Addy Pardo MD Attending Provider Active S tart: May 23, 2024 End: June 11, 2024 Dr. Addy Pardo MD Referring Provider Active S tart: May 23, 2024 End: June 11, 2024 Team Status: Inactive Member Role Status Dates Dr. Danial Dempsey MD Primary Care Provider Acti ve Start: June 10, 2024 End: June 11, 2024 Dr. Addy Pardo MD Attending Provider Active S tart: June 10, 2024 End: June 11, 2024 Dr. Addy Pardo MD Referring Provider Active S tart: June 10, 2024 End: June 11, 2024 Team Status: Inactive Member Role Status Dates Dr. Danial Dempsey MD Primary Care Provider Acti ve Start: July 03, 2024 End: July 12, 2024 Dr. Addy Pardo MD Attending Provider Active S tart: July 03, 2024 End: July 12, 2024 Dr. Addy Pardo MD Referring Provider Active S tart: July 03, 2024 End: July 12, 2024 Tailman Relationship Specialty Start Date End Date Danial Dempsey MD 155 [place] [address] [place] [address] PCP - General 07/23/14 Tailman Relationship Specialty Start Date End Date Danial Dempsey MD 155 [place], [place] [address] [place] [address] PCP - General 07/23/14 Tailman Relationship Specialty Start Date End Date Danial Dempsey MD [address] [place] [address] PCP - General Family Medicine 04/07/19 Tailman Relationship Specialty Start Date End Date Danial Dempsey MD [address] [address] PCP - General 07/23/14 Tailman Relationship Specialty Start Date End Date Danial Dempsey MD [address] [address] PCP - General 07/23/14 Tailman Relationship Specialty Start Date End Date Danial Dempsey MD [address] [place] [address] PCP - General Family Medicine 04/07/19 Tailman Relationship Specialty Start Date End Date Danial Dempsey MD [address] [place] [address] PCP - General Family Medicine 04/07/19 Tailman Relationship Specialty Start Date End Date Danial Dempsey MD [address] [address] PCP - General 07/23/14 Tailman Relationship Specialty Start Date End Date Danial Dmepsey MD [address] [address] PCP - General 07/23/14 Tailman Relationship Specialty Start Date End Date Danial Dempsey MD [address] [address] PCP - General 07/23/14 Tailman Relationship Specialty Start Date End Date Danial Dempsey MD [address] [address] PCP - General 07/23/14 Tailman Relationship Specialty Start Date End Date Danial Dempsey MD [address] [address] PCP - General 07/23/14 Tailman Relationship Specialty Start Date End Date Danial Dempsey MD [address] [address] PCP - General 07/23/14 Tailman Relationship Specialty Start Date End Date Danial Dempsey MD [address] [address] PCP - General 07/23/14 Tailman Relationship Specialty Start Date End Date Danial Dempsey MD [address] [address] PCP - General 07/23/14 Tailman Relationship Specialty Start Date End Date Danial Dempsey MD [address] [address] PCP - General 07/23/14 Tailman Relationship Specialty Start Date End Date Danial Dempsey MD [address] [address] PCP - General 07/23/14 Tailman Relationship Specialty Start Date End Date Danial Dempsey MD [address] [address] PCP - General 07/23/14 Tailman Relationship Specialty Start Date End Date Danial Dempsey MD [address] [address] PCP - General 07/23/14 Tailman Relationship Specialty Start Date End Date Denis Osuna MD [address] [place] [address] PCP - General Family Medicine 10/22/24 Tailman Relationship Specialty Start Date End Date Denis Osuna MD [address] [place] [address] PCP - General Family Medicine 10/22/24 Tailman Relationship Specialty Start Date End Date Denis Osuna MD [address] [place] [address] PCP - General Family Medicine 10/22/24 Tailman Relationship Specialty Start Date End Date Denis Osuna MD [address] [place] [address] PCP - General Family Medicine 10/22/24 Tailman Relationship Specialty Start Date End Date Denis Osuna MD [address] [place] [address] PCP - General Family Medicine 10/22/24 Team Status: Active Member Role/Relationship Status Dates Dr. Danial Dempsey MD Primary care physician Act lizeth Team Status: Inactive Member Role/Relationship Status Dates Dr. Danial Dempsey MD Primary care physician Act lizeth Start: December 03, 2024 End: December 03, 2024 Dr. Danial Dempsey MD Referring Provider Active Start: December 03, 2024 End: December 03, 2024 Neal Yara Marcial COOKER SULFITE, COOKER SULFITE-C Attending physician Active Start: December 03, 2024 End: December 03, 2024 Goals (unrecognized section and content) Goals may be documented in a n alternate sectionGoals may be documented in an alternate sectionGoals may be documented in an alternate sectionGoals may be documented in an alternate sectionGoals may be documented in an alternate sectionGoals may be documented in an alternate sectionGoals may be documented in an alternate sectionGoals may be documented in an alternate section Scheduled Active and Recently Administ ered Medications (unrecognized section and content) Medication Order 09/11/2024 09/12/2024 09/13/2024 sodium chloride 0.9 % bolus 1,000 mL (COMPLETED) 1,000 mL, IntraVENous, at 1,000 mL/hr, Administer over 1 Hours, Once, On 09/13/24 at 0930, For 1 dose 0955 (New Bag - Prov ider: Susie Fregoso, JAVIER)1052 (Stopped - Provider: June Carrasquillo RN) PRN Medication Order 09/11/2024 09/12/2024 09/13/2024 iopamidol (Isovue-370) 76 % injection 75 mL (COMPLETED) 75 mL, IntraVENous, IMG once PRN, contrast, Starting on 09/13/24 at 1050, For 1 dose 1051 (Given - Provid er: Praveena Singh, RT (R)(CT)) FOR RECORDS PERTAINING TO PATIENTS WHO ARE [...] BE BASED ON THE PRIMARY CLINICAL RECORDS. [employer] [facility]. provides no warranty or guarantee of the accuracy or completeness of information in this document.
== END | disposition home or self-care (01) ==
LOC: CT 08:32
PROVIDERS: Referring Provider Physician Assistant Medical; Visit Provider Physician Assistant Medical
DX: R93.89 Abnormal findings on diagnostic imaging of other specified body structures (principal)
CPT/HCPCS: 71250